=== PATIENT | male | born 1940 | race Caucasian/White ===

== ENCOUNTER 2021-08-20 13:40 | Outpatient (CLI) | payer OTHER, SELFPAY ==
--- NOTE | 2021-08-20 14:30 | MR_ITS ---
Final Report Patient: FOREST CHEEMA Facility:?[facility] Patient ID:?[id number] Site Patient ID:?[id number]. Site :?[id number] Study:?MRI Extremity Right FOOT OSTEO-08/20/2021 3:39:58 PM Ordering Physician:?Paulo Breaux Final Report: INDICATION: Nonhealing wound of the right great toe. COMPARISON: Plain film 12 August 2021 and MRI 29 July 2021. TECHNIQUE: Axial, coronal and sagittal T1 and STIR right forefoot sequences. FINDINGS: No T1 marrow signal abnormality for osteomyelitis. MR marker at the medial margin of the 1st metatarsal head. No effusion. Minor degenerative arthrosis 1st MTP joint and both sesamoids. Soft tissue edema dorsally. Mild increased STIR signal denervation changes in the muscle. There may be a shallow chronic ulcer of the medial great toe roughly at the interphalangeal joint level. Some surrounding cellulitis soft tissue edema but no fluid. No effusion of the minimally degenerated interphalangeal joint. IMPRESSION: No osteomyelitis. Minor degenerative arthrosis 1st MTP joints and sesamoids. Minor degenerative arthrosis IP joint. Nonspecific dorsal subcutaneous edema. Dictated by Taurus Osborn MD @ 08/21/2021 11:13:17 AM (Electronic Signature)
== END 2021-08-20 13:41 | disposition home or self-care (01) ==
LOC: MRI 13:41
PROVIDERS: PCP Surgery; Visit Provider Nurse Practitioner Family
DX: M86.9 Osteomyelitis, unspecified (principal); M19.071 Primary osteoarthritis, right ankle and foot
CPT/HCPCS: 73718

== ENCOUNTER 2021-08-27 13:36 | Outpatient (CLI) | payer OTHER, SELFPAY | END 2021-08-27 13:37 | disposition home or self-care (01) | LOC: WOUND 13:36 | PROVIDERS: PCP Surgery; Visit Provider Nurse Practitioner Family | DX: E11.621 Type 2 diabetes mellitus with foot ulcer (principal); E11.43 Type 2 diabetes mellitus with diabetic autonomic (poly)neuropathy; L97.513 Non-pressure chronic ulcer of other part of right foot with necrosis of muscle; Z79.84 Long term (current) use of oral hypoglycemic drugs | CPT/HCPCS: 97597 ==

== ENCOUNTER 2021-09-05 08:48 | Outpatient (CLI) | payer OTHER, MEDICARE, SELFPAY | END 2021-09-05 08:49 | disposition home or self-care (01) | PROVIDERS: PCP Surgery; Visit Provider Nurse Practitioner Family | DX: E11.621 Type 2 diabetes mellitus with foot ulcer (principal); E11.43 Type 2 diabetes mellitus with diabetic autonomic (poly)neuropathy; L97.513 Non-pressure chronic ulcer of other part of right foot with necrosis of muscle; Z79.84 Long term (current) use of oral hypoglycemic drugs | CPT/HCPCS: 11043 ==

== ENCOUNTER 2021-09-09 13:33 | Outpatient (CLI) | payer OTHER, SELFPAY | END 2021-09-09 13:34 | disposition home or self-care (01) | LOC: WOUND 13:40 | PROVIDERS: PCP Surgery; Visit Provider Nurse Practitioner Family | DX: E11.621 Type 2 diabetes mellitus with foot ulcer (principal); E11.43 Type 2 diabetes mellitus with diabetic autonomic (poly)neuropathy; L97.513 Non-pressure chronic ulcer of other part of right foot with necrosis of muscle | CPT/HCPCS: 11043 ==

== ENCOUNTER 2021-09-16 08:20 | Outpatient (CLI) | payer OTHER, SELFPAY | END 2021-09-16 08:21 | disposition home or self-care (01) | LOC: WOUND 08:21 | PROVIDERS: PCP Surgery; Visit Provider Nurse Practitioner Family | DX: E11.621 Type 2 diabetes mellitus with foot ulcer (principal); E11.43 Type 2 diabetes mellitus with diabetic autonomic (poly)neuropathy; L97.513 Non-pressure chronic ulcer of other part of right foot with necrosis of muscle; Z79.84 Long term (current) use of oral hypoglycemic drugs | CPT/HCPCS: 11042 ==

== ENCOUNTER 2021-09-23 08:22 | Outpatient (CLI) | payer OTHER, MEDICARE, SELFPAY | END 2021-09-23 08:23 | disposition home or self-care (01) | LOC: WOUND 08:22 | PROVIDERS: PCP Surgery; Visit Provider Nurse Practitioner Family | DX: E11.621 Type 2 diabetes mellitus with foot ulcer (principal); E11.43 Type 2 diabetes mellitus with diabetic autonomic (poly)neuropathy; L97.513 Non-pressure chronic ulcer of other part of right foot with necrosis of muscle; Z79.84 Long term (current) use of oral hypoglycemic drugs | CPT/HCPCS: 11042 ==

== ENCOUNTER 2021-09-30 09:17 | Outpatient (CLI) | payer OTHER, MEDICARE, SELFPAY | END 2021-09-30 09:18 | disposition home or self-care (01) | PROVIDERS: PCP Surgery; Visit Provider Nurse Practitioner Family | DX: E11.621 Type 2 diabetes mellitus with foot ulcer (principal); E11.43 Type 2 diabetes mellitus with diabetic autonomic (poly)neuropathy; L97.513 Non-pressure chronic ulcer of other part of right foot with necrosis of muscle; Z79.84 Long term (current) use of oral hypoglycemic drugs | CPT/HCPCS: 11043 ==

== ENCOUNTER 2021-10-07 12:47 | Outpatient (CLI) | payer OTHER, MEDICARE, SELFPAY | END 2021-10-07 12:48 | disposition home or self-care (01) | LOC: WOUND 12:47 | PROVIDERS: PCP Surgery; Visit Provider Nurse Practitioner Family | DX: E11.621 Type 2 diabetes mellitus with foot ulcer (principal); E11.43 Type 2 diabetes mellitus with diabetic autonomic (poly)neuropathy; L97.513 Non-pressure chronic ulcer of other part of right foot with necrosis of muscle; Z79.84 Long term (current) use of oral hypoglycemic drugs | CPT/HCPCS: 11042 ==

== ENCOUNTER 2021-10-14 09:15 | Outpatient (CLI) | payer OTHER, MEDICARE, SELFPAY | END 2021-10-14 09:16 | disposition home or self-care (01) | LOC: WOUND 09:15 | PROVIDERS: PCP Surgery; Visit Provider Nurse Practitioner Family | DX: E11.621 Type 2 diabetes mellitus with foot ulcer (principal); E11.43 Type 2 diabetes mellitus with diabetic autonomic (poly)neuropathy; L97.516 Non-pressure chronic ulcer of other part of right foot with bone involvement without evidence of necrosis; Z79.84 Long term (current) use of oral hypoglycemic drugs | CPT/HCPCS: 11043; 96372; J0696 ==

== ENCOUNTER 2021-10-14 10:03 | Outpatient (CLI) | payer OTHER, SELFPAY ==
--- NOTE | 2021-10-14 10:45 | CRLHL7_ITS ---
For Patients: As a result of the Cures Act, medical imaging exams and procedure reports are released immediately into your electronic medical record. You may view this report before your referring provider. If you have questions, please contact your health care provider. Indication: Infection probes to bone Technique: Three views right great toe Comparison: MRI 08/20/2021 Findings: There is now destructive change to the medial aspect of the great toe distal phalanx adjacent to the skin ulcer. Multiple areas of density are located within the medial soft tissues related to the cortical breakdown. Mild degenerative changes noted. Impression: Interval development of osteomyelitis involving the medial aspect of the great toe distal phalanx. Dictated by Simon Contreras MD @ 10/14/2021 11:07:01 AM (Electronically Signed)
== END 2021-10-14 10:04 | disposition home or self-care (01) ==
PROVIDERS: PCP Surgery; Visit Provider Nurse Practitioner Family
DX: L97.516 Non-pressure chronic ulcer of other part of right foot with bone involvement without evidence of necrosis (principal); M86.8X7 Other osteomyelitis, ankle and foot
CPT/HCPCS: 73660

== ENCOUNTER 2021-10-14 10:03 | Outpatient (CLI) | payer OTHER, MEDICARE, SELFPAY ==
[2021-10-14 11:08] LABS: Basophils Absolute Auto 0.03 K/uL (0.00-0.30); Basophils Percent Auto 0.3 % (0.0-3.0); Eosinophils Absolute Auto 0.12 K/uL (0.00-0.50); Eosinophils Percent Auto 1.3 % (0.0-7.0); Hematocrit 35.9 % (37.0-53.0); Hemoglobin* 12.6 gm/dL (13.5-17.5); Immature Granulocytes Abs Auto 0.01 K/uL (0.00-0.30); Lymphocytes Percent Auto 18.4 % (20-44); Mean Corpuscular HGB Conc 35 gm/dL (32-36); Mean Corpuscular Hemoglobin 32 pg (26-34); Mean Corpuscular Volume 90 fL (80-100); Monocytes Percent Auto 11.4 % (0.0-11.0); Neutrophils Absolute Auto 6.52 K/uL (1.7-7.0); Neutrophils Percent Auto 68.5 % (42.0-72.0); Platelet Count* 166 K/uL (140-440); RDW Coefficient of Variation % 12.6 % (11.5-15.5); Red Blood Count 3.98 m/uL (4.30-5.90); White Blood Count* 9.52 K/uL (4.50-11.00)
[2021-10-14 11:17] LABS: Slide Review Reflex No
[2021-10-14 11:33] LABS: Chloride* 99 mmol/L (96-114); Potassium* 4.2 mmol/L (3.6-5.1); Sodium* 137 mmol/L (135-149)
[2021-10-14 11:36] LABS: Blood Urea Nitrogen* 14 mg/dL (7-30); Carbon Dioxide* 26 mmol/L (20-32); Estimated Glomerular Filt Rate 75 ml/min
[2021-10-14 11:37] LABS: Calcium* 8.9 mg/dL (8.4-10.6); Glucose* 184 mg/dL (60-115)
[2021-10-14 11:39] LABS: C Reactive Protein* 2.9 mg/dL (0.5-1.0)
== END 2021-10-14 10:04 | disposition home or self-care (01) ==
PROVIDERS: PCP Surgery; Visit Provider Nurse Practitioner Family
DX: L97.516 Non-pressure chronic ulcer of other part of right foot with bone involvement without evidence of necrosis (principal)
CPT/HCPCS: 36415; 80048; 85025; 86140; 87070; 87186

== ENCOUNTER 2021-10-21 09:14 | Outpatient (CLI) | payer OTHER, MEDICARE, SELFPAY ==
--- NOTE | 2021-10-21 13:45 | CRLHL7_ITS ---
For Patients: As a result of the Century Cures Act, medical imaging exams and procedure reports are released immediately into your electronic medical record. You may view this report before your referring provider. If you have questions, please contact your health care provider. INDICATION: HBO workup read TECHNIQUE: Chest 2 views. COMPARISON: 11/11/2020. FINDINGS: Cardiovascular and mediastinum: Heart size and vasculature are normal in caliber and appearance. Calcification in the aortic arch. Lungs and pleural spaces: Lungs are clear. No sign of infiltrate or mass. No sign of pleural effusion. No pneumothorax. Bones and soft tissues: Multilevel degenerative disc disease. IMPRESSION: No acute or significant findings. Dictated by Krishan Tidwell MD @ 10/21/2021 12:54:07 PM (Electronically Signed)
== END 2021-10-21 09:15 | disposition home or self-care (01) ==
LOC: WOUND 09:14
PROVIDERS: PCP Surgery; Visit Provider Nurse Practitioner Family
DX: E11.621 Type 2 diabetes mellitus with foot ulcer (principal); L97.516 Non-pressure chronic ulcer of other part of right foot with bone involvement without evidence of necrosis; Z79.84 Long term (current) use of oral hypoglycemic drugs; Z01.810 Encounter for preprocedural cardiovascular examination
CPT/HCPCS: 11042; 71046

== ENCOUNTER 2021-10-23 08:00 | Outpatient (RCR) | payer OTHER, MEDICARE, SELFPAY | END 2021-10-23 23:59 | disposition home or self-care (01) | LOC: WOUND 08:00 | PROVIDERS: PCP Surgery; Visit Provider Nurse Practitioner Family | DX: E11.621 Type 2 diabetes mellitus with foot ulcer (principal); E11.43 Type 2 diabetes mellitus with diabetic autonomic (poly)neuropathy; L97.516 Non-pressure chronic ulcer of other part of right foot with bone involvement without evidence of necrosis; Z79.84 Long term (current) use of oral hypoglycemic drugs | CPT/HCPCS: 82962; G0277 ==

== ENCOUNTER 2021-10-24 12:32 | Outpatient (CLI) | payer OTHER, SELFPAY | END 2021-10-24 12:33 | disposition home or self-care (01) | LOC: WOUND 12:33 | PROVIDERS: PCP Surgery; Visit Provider Nurse Practitioner Family | DX: E11.621 Type 2 diabetes mellitus with foot ulcer (principal); E11.43 Type 2 diabetes mellitus with diabetic autonomic (poly)neuropathy; L97.516 Non-pressure chronic ulcer of other part of right foot with bone involvement without evidence of necrosis; Z79.84 Long term (current) use of oral hypoglycemic drugs | CPT/HCPCS: 11043; 82962; G0277 ==

== ENCOUNTER 2021-10-25 13:28 | Emergency (ER) | payer OTHER, SELFPAY ==
[2021-10-25 13:40] VITALS: BP 131/71; PULSE 80; RESP 20; TEMP 36.6; O2SAT 97; BMI 28.5
--- NOTE | 2021-10-25 13:50 | ED.GENADULT ---
HPI - General Adult General Time Seen by Provider: 13:50 Date Seen: 10/25/21 Chief complaint: Shortness of Breath/Dyspnea Stated complaint: Shortness of Breath Lightheaded Time Seen by Provider: 10/25/21 13:33 Source: patient and RN notes reviewed Mode of arrival: ambulatory Limitations: no limitations History of Present Illness HPI narrative: Pratik an 81-year-old male ambulatory in the ED of his own accord accompanied by his with shortness of breath. He was working outside working on fixing parts to a pool heater for hours outside. He started feeling short of breath, headache, nausea, just not feeling well. He is feeling better now that he is inside. He has had a history of a heat stroke while golfing, states he completely passed out. He denies any pain anywhere. He has had no underlying fevers or chills. He is being treated with hyperbaric therapy for a wound of his right lower extremity. It sounds is if there might be underlying osteo myelitis or recent history of this. Again, he is not had any concerns with worsening status of his wound, no fevers chills. He was not feeling poorly until after he was outside for some time. There has been no chest pain, no palpitations, no abdominal pain. Related Data Home Medications Medication Instructions Recorded Confirmed amlodipine 2.5 mg tablet 2.5 mg PO DAILY 10/25/21 10/25/21 clopidogrel 75 mg tablet 75 mg PO DAILY 10/25/21 10/25/21 ferrous sulfate 325 mg (65 mg 325 mg PO DAILY 10/25/21 10/25/21 iron) tablet (FeroSul) gabapentin 100 mg capsule 100 mg PO Q12H 10/25/21 10/25/21 glipizide 5 mg tablet 5 mg PO DAILY 10/25/21 10/25/21 indomethacin 25 mg capsule 25 mg PO DAILY PRN 10/25/21 10/25/21 ipratropium 20 mcg-albuterol 100 1 puff inhalation Q6H 10/25/21 10/25/21 mcg/actuation mist for inhalation (Combivent Respimat) isosorbide mononitrate 30 mg 30 mg PO DAILY 10/25/21 10/25/21 tablet,extended release 24 hr levofloxacin 750 mg tablet 750 mg PO DAILY 10/25/21 10/25/21 losartan 50 mg tablet 50 mg PO DAILY 10/25/21 10/25/21 metformin 850 mg tablet 850 mg PO BID 10/25/21 10/25/21 nitroglycerin 0.4 mg sublingual 0.4 mg sublingual Q5M PRN 10/25/21 10/25/21 tablet oxycodone 5 mg tablet 5 mg PO HS PRN 10/25/21 10/25/21 rosuvastatin 20 mg tablet 10 mg PO HS 10/25/21 10/25/21 Allergies Allergy/AdvReac Type Severity Reaction Status Date / Time atenolol Allergy Unknown Verified 10/25/21 14:21 atorvastatin Allergy Unknown Myalgia Verified 10/25/21 14:21 lisinopril AdvReac Unknown Cough Verified 10/25/21 14:21 metoprolol AdvReac Unknown Headache Verified 10/25/21 14:21 Review of Systems Status of ROS: Reports: 10 or more systems reviewed and unremarkable except as noted in History and below PFSH PFS Social History Smoking Status: Never smoker How often do you have a drink containing alcohol: never AUDIT-C Alcohol total score: 0 Non-prescribed substance use: denies use service: No Exam Const: Vital Signs, click to edit/add: Vital Signs - 24 hr 10/25/21 13:40 10/25/21 14:40 Temperature 97.9 F Pulse Rate [Right Pulse Oximeter] 80 81 Respiratory Rate 20 22 Blood Pressure [Le ft Upper Arm] 131/71 124/61 Pulse Oximetry 97 99 Oxygen Delivery Me thod Room Air Room Air Documenting provider has reviewed patient's vital signs: yes Common normals: no apparent distress, average body habitus, oriented x3, no limitations, healthy appearing, alert and well nourished General appearance: cooperative, comfortable and well kempt HENMT: Common normals: normocephalic, head/scalp atraumatic, hearing grossly normal bilaterally and external ears normal Head and scalp: normocephalic and atraumatic External ear: external ears normal Eye: Common normals: PERRL, EOMs intact bilaterally, conjunctivae normal and no scleral icterus Conjunctiva: conjunctiva(e) normal Pupil: PERRL Neck & C-Spine: Common normals: full ROM, no lymphadenopathy, supple, no meningeal signs, no JVD and thyroid normal Thyroid: thyroid normal Resp: Common normals: normal respiratory effort, no retractions, no use of accessory muscles and clear to auscultation bilaterally Auscultation: clear to auscultation bilaterally Cardio: Common normals: no JVD, regular rate, regular rhythm, S1 normal heart sound, S2 normal heart sound, no gallops, no clicks and no murmurs Rate: regular rate Rhythm: regular rhythm Heart sounds: S1 normal and S2 normal GI: Common normals: Normal to inspection, nondistended, normoactive bowel sounds present, soft to palpation, non-tender, no hepatosplenomegaly, no masses and no bruits Palpation: soft and no hepatosplenomegaly Extremity: Other: Has some notable venous stasis changes left lower extremity, has Tubigrip tape netting on the right lower extremity. No clinically palpable tenderness in the calf areas. No significant lower extremity edema noted. Neuro: Common normals: oriented x3 Sensorium/orientation: alert Meningeal signs: no meningeal signs Speech: speech normal Psych: Appearance: well kempt Course Course Hospital Course: Will place an IV, give him 500 mL normal saline, obtained appropriate lab values, obtain an EKG. We will do portable chest x-ray. I am going to dry D-dimer as well. He is not hypoxic, has no pain. My working hypothesis is that this might be a mild heat related illness but will rule out underlying cardiopulmonary pathology. Reevaluation(s) Reevaluation #1: Have reviewed with patient that his labs and portable chest x-ray are looking reassuring. He is feeling better with the fluids. We will obtain a a followup lactate and 2nd point of care troponin. If these are normal he will be discharged to home. Time: 16:23 Vital Signs Vital signs: Initial Vital Signs Temperature 97.9 F 10/25/21 13:40 Temperature Source Temporal Artery Scan 10/25/21 13:40 Pulse Rate 80 10/25/21 13:40 Respiratory Rate 20 10/25/21 13:40 Blood Pressure 131/71 10/25/21 13:40 Blood Pressure Mean 91 10/25/21 13:40 Blood Pressure Position Supine 10/25/21 13:40 Pulse Oximetry 97 10/25/21 13:40 Oxygen Delivery Method 10/25/21 13:40 Vital Signs Temperature 97.9 F 10/25/21 13:40 Pulse Rate 80 10/25/21 13:40 Respiratory Rate 20 10/25/21 13:40 Blood Pressure 131/71 10/25/21 13:40 Pulse Oximetry 97 10/25/21 13:40 Oxygen Delivery Method 10/25/21 13:40 Temperature 97.9 F 10/25/21 13:40 Pulse Rate 81 10/25/21 14:40 Respiratory Rate 22 10/25/21 14:40 Blood Pressure 124/61 10/25/21 14:40 Pulse Oximetry 99 10/25/21 14:40 Oxygen Delivery Method 10/25/21 14:40 Medical Decision Making Lab Data Lab results reviewed: Yes I reviewed the patient's lab results Lab results narrative: Lactate has improved, point of care troponin remains normal. Labs: Lab Results 10/25/21 10/25/21 10/25/21 Range/Units 14:28 14:28 14:34 WBC 9.27 (4.50-11.00) K/uL RBC 3.84 L (4.30-5.90) m/uL Hgb 11.9 L (13.5-17.5) gm/dL Hct 34.7 L (37.0-53.0) % MCV 90 (80-100) fL MCH 31 (26-34) pg MCHC 34 (32-36) gm/dL RDW Coeff of Elan 12.2 (11.5-15.5) % Plt Count 199 (140-440) K/uL Neut % (Auto) 74.4 H (42.0-72.0) % Lymph % (Auto) 17.0 L (20-44) % [place] % (Auto) 6.6 (0.0-11.0) % Eos % (Auto) 1.5 (0.0-7.0) % Baso % (Auto) 0.2 (0.0-3.0) % Neut # (Auto) 6.90 (1.7-7.0) K/uL Lymph # (Auto) 1.60 (0.90-2.90) K/uL [place] # (Auto) 0.60 (0.00-0.90) K/UL Eos # (Auto) 0.14 (0.00-0.50) K/uL Baso # (Auto) 0.02 (0.00-0.30) K/uL Abs Immat Gran (auto) 0.03 (0.00-0.30) K/uL D-Dimer Quant (PE/DVT) 0.50 (0.00-0.50) ug/ml Sodium (135-149) mmol/L Potassium (3.6-5.1) mmol/L Chloride (96-114) mmol/L Carbon Dioxide (20-32) mmol/L BUN (7-30) mg/dL Creatinine (0.5-1.5) mg/dL Estimated Creat Clear Estimated GFR ml/min Glucose (60-115) mg/dL Lactate (0.5-1.9) mmol/L Calcium (8.4-10.6) mg/dL Total Bilirubin (0.1-1.5) mg/dL AST (12-35) U/L ALT (4-50) U/L Alkaline Phosphatase (40-150) U/L NT-Pro-B Natriuret Pep (0-450) PG/mL Total Protein (6.0-8.3) g/dL Albumin (3.3-5.0) g/dL POC Troponin I 0.00 L (0.01-0.04) ng/ml 10/25/21 10/25/21 10/25/21 Range/Units 14:34 14:34 16:44 WBC (4.50-11.00) K/uL RBC (4.30-5.90) m/uL Hgb (13.5-17.5) gm/dL Hct (37.0-53.0) % MCV (80-100) fL MCH (26-34) pg MCHC (32-36) gm/dL RDW Coeff of Elan (11.5-15.5) % Plt Count (140-440) K/uL Neut % (Auto) (42.0-72.0) % Lymph % (Auto) (20-44) % [place] % (Auto) (0.0-11.0) % Eos % (Auto) (0.0-7.0) % Baso % (Auto) (0.0-3.0) % Neut # (Auto) (1.7-7.0) K/uL Lymph # (Auto) (0.90-2.90) K/uL [place] # (Auto) (0.00-0.90) K/UL Eos # (Auto) (0.00-0.50) K/uL Baso # (Auto) (0.00-0.30) K/uL Abs Immat Gran (auto) (0.00-0.30) K/uL D-Dimer Quant (PE/DVT) (0.00-0.50) ug/ml Sodium 136 (135-149) mmol/L Potassium 4.1 (3.6-5.1) mmol/L Chloride 101 (96-114) mmol/L Carbon Dioxide 24 (20-32) mmol/L BUN 26 (7-30) mg/dL Creatinine 1.4 (0.5-1.5) mg/dL Estimated Creat Clear 42.58 Estimated GFR 50 ml/min Glucose 221 H (60-115) mg/dL Lactate 2.0 H 1.4 (0.5-1.9) mmol/L Calcium 9.1 (8.4-10.6) mg/dL Total Bilirubin 0.4 (0.1-1.5) mg/dL AST 23 (12-35) U/L ALT 18 (4-50) U/L Alkaline Phosphatase 76 (40-150) U/L NT-Pro-B Natriuret Pep 81 (0-450) PG/mL Total Protein 6.5 (6.0-8.3) g/dL Albumin 3.8 (3.3-5.0) g/dL POC Troponin I (0.01-0.04) ng/ml 10/25/21 Range/Units 16:44 WBC (4.50-11.00) K/uL RBC (4.30-5.90) m/uL Hgb (13.5-17.5) gm/dL Hct (37.0-53.0) % MCV (80-100) fL MCH (26-34) pg MCHC (32-36) gm/dL RDW Coeff of Elan (11.5-15.5) % Plt Count (140-440) K/uL Neut % (Auto) (42.0-72.0) % Lymph % (Auto) (20-44) % [place] % (Auto) (0.0-11.0) % Eos % (Auto) (0.0-7.0) % Baso % (Auto) (0.0-3.0) % Neut # (Auto) (1.7-7.0) K/uL Lymph # (Auto) (0.90-2.90) K/uL [place] # (Auto) (0.00-0.90) K/UL Eos # (Auto) (0.00-0.50) K/uL Baso # (Auto) (0.00-0.30) K/uL Abs Immat Gran (auto) (0.00-0.30) K/uL D-Dimer Quant (PE/DVT) (0.00-0.50) ug/ml Sodium (135-149) mmol/L Potassium (3.6-5.1) mmol/L Chloride (96-114) mmol/L Carbon Dioxide (20-32) mmol/L BUN (7-30) mg/dL Creatinine (0.5-1.5) mg/dL Estimated Creat Clear Estimated GFR ml/min Glucose (60-115) mg/dL Lactate (0.5-1.9) mmol/L Calcium (8.4-10.6) mg/dL Total Bilirubin (0.1-1.5) mg/dL AST (12-35) U/L ALT (4-50) U/L Alkaline Phosphatase (40-150) U/L NT-Pro-B Natriuret Pep (0-450) PG/mL Total Protein (6.0-8.3) g/dL Albumin (3.3-5.0) g/dL POC Troponin I 0.00 L (0.01-0.04) ng/ml Imaging Data Chest x-ray: Attestation: I have reviewed the pertinent imaging results. My impression: Chest x-ray my preliminary review without any acute cardio pulmonary pathology, await Radiology over-read. Radiologist's impression: Patient: PRATIK CHEEMA Facility:?[facility] Patient ID:?[id number] Site Patient ID:?[id number]. Site :?[id number] Study:?XRay Chest -10/25/2021 2:22:41 PM Ordering Physician:Radha Sarkar Final Report: Indication: Shortness of breath. Technique: Portable single view AP chest x-ray. Comparison: 10/21/2021. Findings: Lungs remain clear. Heart and pulmonary vascularity within normal limits. No pleural fluid or pneumothorax is identified. Some degenerative changes in the spine. Impression: No acute findings identified. No change from 10/21/2021. Dictated by Willis East MD @ 10/25/2021 2:55:55 PM (Electronic Signature) ECG Data Attestation: I personally reviewed and interpreted this ECG as follows: (Sinus rhythm with first-degree AV block, 85 beats per minute.) Prior ECG tracings: not available for review Critical Care Time Critical Care Time Critical Care Time: No Discharge Plan Discharge Clinical Impression: Shortness of breath, Heat effect Patient Disposition: Home, Self-Care Condition: Improved Instructions: Heat Exhaustion (ED), Shortness of Breath (ED) Additional Instructions: Need to be careful in the heat, stay hydrated/drink plenty of fluids if in heat exposure, try to minimize length of time and high heat. If you notice further issues with shortness of breath, do recommend that you have further evaluation with her primary care provider. Certainly if you are having acute shortness of breath or difficulty breathing, always recommend re-evaluation and in the ER if needed. Activity Level: Activity as Tolerated Prescriptions: No Action amlodipine 2.5 mg tablet 2.5 mg PO DAILY clopidogrel 75 mg tablet 75 mg PO DAILY Label Comments: TAKE ONE TABLET DAILY ferrous sulfate [FeroSul] 325 mg (65 mg iron) tablet 325 mg PO DAILY Label Comments: TAKE 1 TABLET BY MOUTH DAILY WITH A MEAL gabapentin 100 mg capsule 100 mg PO Q12H Label Comments: TAKE 1 CAPSULE BY MOUTH TWICE DAILY glipizide 5 mg tablet 5 mg PO DAILY indomethacin 25 mg capsule 25 mg PO DAILY PRN Label Comments: TAKE 1 CAPSULE BY MOUTH DAILY NEEDED FOR FOOT PAIN. DO NOT TAKE ON AN ON AN EMPTY STOMACH Combivent Respimat 20-100 mcg/actuation mist 1 puff INHALATION Q6H Label Comments: INHALE 1 PUFF BY MOUTH EVERY 6 HOURS isosorbide mononitrate 30 mg tablet extended release 24 hr 30 mg PO DAILY levofloxacin 750 mg tablet 750 mg PO DAILY Label Comments: TAKE 1 TABLET DAILY FOR 4 WEEKS losartan 50 mg tablet 50 mg PO DAILY metformin 850 mg tablet 850 mg PO BID nitroglycerin 0.4 mg tablet, sublingual 0.4 mg sublingual Q5M PRN oxycodone 5 mg tablet 5 mg PO HS PRN Label Comments: 5 MG PO HS PRN Take as needed for foot pain. rosuvastatin 20 mg tablet 10 mg PO HS Label Comments: TAKE 1/2 TABLET BY MOUTH EVERY EVENING Follow Up/Referrals: Kevin Nelson MD [Primary Care Provider] - Stand Alone Forms: [employer] Info Instructions
--- NOTE | 2021-10-25 14:11 | CRLHL7_ITS ---
For Patients: As a result of the Century Cures Act, medical imaging exams and procedure reports are released immediately into your electronic medical record. You may view this report before your referring provider. If you have questions, please contact your health care provider. Indication: Shortness of breath. Technique: Portable single view AP chest x-ray. Comparison: 10/21/2021. Findings: Lungs remain clear. Heart and pulmonary vascularity within normal limits. No pleural fluid or pneumothorax is identified. Some degenerative changes in the spine. Impression: No acute findings identified. No change from 10/21/2021. Dictated by Willis East MD @ 10/25/2021 2:55:55 PM (Electronically Signed)
[2021-10-25] MEDS: 0.9 % SODIUM CHLORIDE 500 ML 500 ML IV (14:38)
[2021-10-25 14:40] VITALS: BP 124/61; PULSE 81; RESP 22; O2SAT 99
[2021-10-25 14:56] LABS: Albumin* 3.8 g/dL (3.3-5.0); Chloride* 101 mmol/L (96-114)
[2021-10-25 14:57] LABS: Potassium* 4.1 mmol/L (3.6-5.1); Sodium* 136 mmol/L (135-149)
[2021-10-25 14:59] LABS: Bilirubin Total* 0.4 mg/dL (0.1-1.5); Carbon Dioxide* 24 mmol/L (20-32); Creatinine* 1.4 mg/dL (0.5-1.5); Est. Creatinine Clearance* 42.58; Estimated Glomerular Filt Rate 50 ml/min
[2021-10-25 15:00] LABS: Alanine Aminotransferase* 18 U/L (4-50); Alkaline Phosphatase* 76 U/L (40-150); Aspartate Amino Transferase* 23 U/L (12-35); Blood Urea Nitrogen* 26 mg/dL (7-30); Calcium* 9.1 mg/dL (8.4-10.6); Glucose* 221 mg/dL (60-115); Total Protein* 6.5 g/dL (6.0-8.3)
[2021-10-25 15:09] LABS: NT Pro B Type NatriureticPept* 81 PG/mL (0-450)
[2021-10-25 15:14] LABS: Basophils Absolute Auto 0.02 K/uL (0.00-0.30); Basophils Percent Auto 0.2 % (0.0-3.0); Eosinophils Absolute Auto 0.14 K/uL (0.00-0.50); Eosinophils Percent Auto 1.5 % (0.0-7.0); Hematocrit 34.7 % (37.0-53.0); Hemoglobin* 11.9 gm/dL (13.5-17.5); Immature Granulocytes Abs Auto 0.03 K/uL (0.00-0.30); Mean Corpuscular HGB Conc 34 gm/dL (32-36); Mean Corpuscular Hemoglobin 31 pg (26-34); Mean Corpuscular Volume 90 fL (80-100); Monocytes Percent Auto 6.6 % (0.0-11.0); Neutrophils Percent Auto 74.4 % (42.0-72.0); Platelet Count* 199 K/uL (140-440); RDW Coefficient of Variation % 12.2 % (11.5-15.5); Red Blood Count 3.84 m/uL (4.30-5.90); White Blood Count* 9.27 K/uL (4.50-11.00)
[2021-10-25 15:17] LABS: Slide Review Reflex No
[2021-10-25 16:49] LABS: Lactate* 1.4 mmol/L (0.5-1.9)
== END 2021-10-25 17:51 | disposition home or self-care (01) ==
PROVIDERS: Emergency Provider Family Medicine; PCP Surgery
DX: R06.02 Shortness of breath (principal); T67.5XXA Heat exhaustion, unspecified, initial encounter
CPT/HCPCS: 36415; 71045; 80053; 83605; 83880; 84484; 85025; 85379; 93005; 96360; 99284; 99285; J7120

== ENCOUNTER 2021-10-29 08:26 | Outpatient (CLI) | payer OTHER, SELFPAY | END 2021-10-29 08:27 | disposition home or self-care (01) | LOC: WOUND 08:27 | PROVIDERS: PCP Surgery; Visit Provider Nurse Practitioner Family | DX: E11.621 Type 2 diabetes mellitus with foot ulcer (principal); E11.43 Type 2 diabetes mellitus with diabetic autonomic (poly)neuropathy; L97.516 Non-pressure chronic ulcer of other part of right foot with bone involvement without evidence of necrosis; Z79.84 Long term (current) use of oral hypoglycemic drugs | CPT/HCPCS: 11042; 82962; G0277 ==

== ENCOUNTER 2021-11-04 10:41 | Outpatient (CLI) | payer OTHER, SELFPAY | END 2021-11-04 10:42 | disposition home or self-care (01) | LOC: WOUND 10:41 | PROVIDERS: PCP Surgery; Visit Provider Nurse Practitioner Family | DX: E11.621 Type 2 diabetes mellitus with foot ulcer (principal); E11.43 Type 2 diabetes mellitus with diabetic autonomic (poly)neuropathy; L97.516 Non-pressure chronic ulcer of other part of right foot with bone involvement without evidence of necrosis; Z79.84 Long term (current) use of oral hypoglycemic drugs | CPT/HCPCS: 11042; 82962; G0277 ==

== ENCOUNTER 2021-11-11 08:50 | Outpatient (CLI) | payer OTHER, SELFPAY | END 2021-11-11 08:51 | disposition home or self-care (01) | LOC: WOUND 08:50 | PROVIDERS: PCP Surgery; Visit Provider Nurse Practitioner Family | DX: E11.621 Type 2 diabetes mellitus with foot ulcer (principal); E11.43 Type 2 diabetes mellitus with diabetic autonomic (poly)neuropathy; L97.516 Non-pressure chronic ulcer of other part of right foot with bone involvement without evidence of necrosis; Z79.84 Long term (current) use of oral hypoglycemic drugs | CPT/HCPCS: 11042; 82962; G0277 ==

== ENCOUNTER 2021-11-18 10:56 | Outpatient (CLI) | payer OTHER, MEDICARE, SELFPAY | END 2021-11-18 10:57 | disposition home or self-care (01) | LOC: WOUND 10:56 | PROVIDERS: PCP Surgery; Visit Provider Nurse Practitioner Family | DX: E11.621 Type 2 diabetes mellitus with foot ulcer (principal); E11.43 Type 2 diabetes mellitus with diabetic autonomic (poly)neuropathy; L97.516 Non-pressure chronic ulcer of other part of right foot with bone involvement without evidence of necrosis; Z79.84 Long term (current) use of oral hypoglycemic drugs | CPT/HCPCS: 11042; 82962; G0277 ==

== ENCOUNTER 2021-11-22 08:00 | Outpatient (RCR) | payer OTHER, SELFPAY | END 2021-11-22 23:59 | disposition home or self-care (01) | LOC: WOUND 08:00 | PROVIDERS: PCP Surgery; Visit Provider Nurse Practitioner Family | DX: E11.621 Type 2 diabetes mellitus with foot ulcer (principal); E11.43 Type 2 diabetes mellitus with diabetic autonomic (poly)neuropathy; I70.235 Atherosclerosis of native arteries of right leg with ulceration of other part of foot; L97.516 Non-pressure chronic ulcer of other part of right foot with bone involvement without evidence of necrosis; Z79.84 Long term (current) use of oral hypoglycemic drugs | CPT/HCPCS: 82962; G0277 ==

== ENCOUNTER 2021-11-26 07:48 | Outpatient (CLI) | payer OTHER, MEDICARE, SELFPAY | END 2021-11-26 07:49 | disposition home or self-care (01) | LOC: WOUND 07:49 | PROVIDERS: PCP Surgery; Visit Provider Nurse Practitioner Family | DX: E11.621 Type 2 diabetes mellitus with foot ulcer (principal); L97.516 Non-pressure chronic ulcer of other part of right foot with bone involvement without evidence of necrosis; L60.3 Nail dystrophy; B35.1 Tinea unguium; Z79.84 Long term (current) use of oral hypoglycemic drugs | CPT/HCPCS: 11042; 11721; 82962; G0277 ==

== ENCOUNTER 2021-12-02 10:19 | Outpatient (CLI) | payer OTHER, MEDICARE, SELFPAY | END 2021-12-02 10:20 | disposition home or self-care (01) | LOC: WOUND 10:19 | PROVIDERS: PCP Surgery; Visit Provider Nurse Practitioner Family | DX: E11.621 Type 2 diabetes mellitus with foot ulcer (principal); E11.43 Type 2 diabetes mellitus with diabetic autonomic (poly)neuropathy; L97.516 Non-pressure chronic ulcer of other part of right foot with bone involvement without evidence of necrosis; Z79.84 Long term (current) use of oral hypoglycemic drugs | CPT/HCPCS: 11043; 82962; G0277 ==

== ENCOUNTER 2021-12-05 08:00 | Outpatient (RCR) | payer OTHER, SELFPAY | END 2021-12-23 23:59 | disposition home or self-care (01) | LOC: WOUND 08:00 | PROVIDERS: PCP Surgery; Visit Provider Nurse Practitioner Family | DX: E11.621 Type 2 diabetes mellitus with foot ulcer (principal); E11.43 Type 2 diabetes mellitus with diabetic autonomic (poly)neuropathy; L97.516 Non-pressure chronic ulcer of other part of right foot with bone involvement without evidence of necrosis; Z79.84 Long term (current) use of oral hypoglycemic drugs | CPT/HCPCS: 82962; G0277 ==

== ENCOUNTER 2021-12-09 09:23 | Outpatient (CLI) | payer OTHER, SELFPAY | END 2021-12-09 09:24 | disposition home or self-care (01) | LOC: WOUND 09:23 | PROVIDERS: PCP Surgery; Visit Provider Nurse Practitioner Family | DX: E11.621 Type 2 diabetes mellitus with foot ulcer (principal); E11.43 Type 2 diabetes mellitus with diabetic autonomic (poly)neuropathy; L97.516 Non-pressure chronic ulcer of other part of right foot with bone involvement without evidence of necrosis; Z79.84 Long term (current) use of oral hypoglycemic drugs | CPT/HCPCS: 11042 ==

== ENCOUNTER 2021-12-16 10:55 | Outpatient (CLI) | payer OTHER, SELFPAY | END 2021-12-16 10:56 | disposition home or self-care (01) | LOC: WOUND 10:55 | PROVIDERS: PCP Surgery; Visit Provider Nurse Practitioner Family | DX: E11.621 Type 2 diabetes mellitus with foot ulcer (principal); E11.43 Type 2 diabetes mellitus with diabetic autonomic (poly)neuropathy; L97.516 Non-pressure chronic ulcer of other part of right foot with bone involvement without evidence of necrosis; Z79.84 Long term (current) use of oral hypoglycemic drugs | CPT/HCPCS: 11042 ==

== ENCOUNTER 2021-12-23 10:49 | Outpatient (CLI) | payer OTHER, SELFPAY | END 2021-12-23 10:50 | disposition home or self-care (01) | LOC: WOUND 10:50 | PROVIDERS: PCP Surgery; Visit Provider Nurse Practitioner Family | DX: E11.621 Type 2 diabetes mellitus with foot ulcer (principal); E11.43 Type 2 diabetes mellitus with diabetic autonomic (poly)neuropathy; L97.516 Non-pressure chronic ulcer of other part of right foot with bone involvement without evidence of necrosis; Z79.84 Long term (current) use of oral hypoglycemic drugs | CPT/HCPCS: 97597 ==

== ENCOUNTER 2021-12-30 10:49 | Outpatient (CLI) | payer OTHER, SELFPAY | END 2021-12-30 10:50 | disposition home or self-care (01) | PROVIDERS: PCP Surgery; Visit Provider Nurse Practitioner Family | DX: E11.621 Type 2 diabetes mellitus with foot ulcer (principal); E11.43 Type 2 diabetes mellitus with diabetic autonomic (poly)neuropathy; L97.516 Non-pressure chronic ulcer of other part of right foot with bone involvement without evidence of necrosis; Z79.84 Long term (current) use of oral hypoglycemic drugs | CPT/HCPCS: 15275; Q4151 ==

== ENCOUNTER 2022-01-06 08:40 | Outpatient (CLI) | payer OTHER, SELFPAY | END 2022-01-06 08:41 | disposition home or self-care (01) | LOC: WOUND 08:40 | PROVIDERS: PCP Surgery; Visit Provider Nurse Practitioner Family | DX: E11.621 Type 2 diabetes mellitus with foot ulcer (principal); E11.43 Type 2 diabetes mellitus with diabetic autonomic (poly)neuropathy; L97.516 Non-pressure chronic ulcer of other part of right foot with bone involvement without evidence of necrosis; Z79.84 Long term (current) use of oral hypoglycemic drugs | CPT/HCPCS: 99212 ==

== ENCOUNTER 2023-06-08 12:38 | Outpatient (CLI) | payer OTHER, SELFPAY ==
--- OUTSIDE RECORDS SUMMARY | 2023-06-08 12:41 | XMS_ITS | Clinical Summary ---
Author Name Unknown Organization [facility] Address [address] [facility] [place] [address] Care Team Providers Care Supervisor Spinning Name Role Phone Kevin Nelson MD Primary Care Provider [phone] Neetu Soria APRN LITHOGRAPHIC RETOUCHER APPRENTICE Unavailable [phone] Allergies Active Allergy Reactions Criticality Noted Date Comments Atorvastatin Unknown 07/27/2013 Muscles weak and sore Beta Adrenergic Blockers Fatigue 07/27/2013 Severe fatigue Lisinopril Cough 07/27/2013 Metoprolol Fatigue 08/08/2013 headaches Medications Medication Sig Dispensed Refills Start Date End Date Status losartan (COZAAR) 50 MG tablet Take 50 mg by mouth 2 times daily Active Multiple Vitamin (DAILY MULTIVITAMIN PO) Take 1 tablet by mouth daily Active nitroglycerin (NITROSTAT) 0.[address] 0.4 mg under the tongue every 5 minutes as needed for chest pain Active Omeprazole Magnesium (PRILOSEC OTC PO) Take 20 mg by mouth daily Active albuterol (PROAIR HFA, PROVENTIL HFA, VENTOLIN HFA) 108 (90 BASE) MCG/ACT inhaler Inhale 2 puffs into the lungs every 6 hours as needed for shortness of breath / dyspnea or wheezing Active metFORMIN (GLUCOPHAGE) 850 MG tablet Take 850 mg by mouth 2 times daily (with meals) Active glipiZIDE (GLUCOTROL) 5 MG tablet Take 2.5 mg by mouth daily Active cyanocobalamin (VITAMIN B-12) 1000 MCG tablet Take by mouth daily Active ipratropium-albutero l (COMBIVENT RESPIMAT) 20-100 MCG/ACT inhaler Inhale 1 puff into the lungs 4 times daily Active ferrous sulfate (FEROSUL) 325 (65 Fe) MG tablet Take 325 mg by mouth daily (with breakfast) Active furosemide (LASIX) 40 MG tablet Take 1 tablet (40 mg) by mouth daily 90 tablet 3 03/07/2021 Active amLODIPine (NORVASC) 2.5 MG tabletIndications:Hy perlipidemia LDL goal <70 Take 0.5 tablets (1.25 mg) by mouth daily 90 tablet 3 03/07/2021 Active levofloxacin (LEVAQUIN) 750 MG tablet Take 750 mg by mouth daily 4 weeks 10/18/2021 Active clopidogrel (PLAVIX) 75 MG tabletIndications:Co ronary artery disease involving [place] coronary artery of [place] heart without angina pectoris Take 1 tablet (75 mg) by mouth daily 90 tablet 3 12/25/2021 Active isosorbide mononitrate (IMDUR) 30 MG 24 hr tabletIndications:DO E (dyspnea on exertion) Take 1 tablet (30 mg) by mouth daily 90 tablet 3 12/25/2021 Active ranolazine (RANEXA) 500 MG 12 hr tabletIndications:Co ronary artery disease involving [place] coronary artery of [place] heart with other form of angina pectoris (H24) Take 1 tablet (500 mg) by mouth 2 times daily 180 tablet 3 12/25/2021 Active rosuvastatin (CRESTOR) 20 MG tabletIndications:Hy perlipidemia LDL goal <70 Take 1 tablet (20 mg) by mouth every evening 90 tablet 4 04/18/2022 Active Active Problems Problem Noted Date Diagnosed Date PAD (peripheral artery disease) (H24) 04/18/2022 Peripheral edema 03/07/2021 Abnormal findings on diagnos tic imaging of heart and coronary circulation 07/11/2020 Overview: Added automatically from request for surgery [id number] Pre-syncope 08/07/2019 Status post coronary angiogram 03/02/2019 MONCADA (dyspnea on exertion) 02/25/2019 Overview: Added automatically from request for surgery [id number] Unstable angina 11/15/2016 Chest pain 08/08/2015 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) 07/11/2020 03/07/2021 Overview: Added automatically from request for surgery [id number] Left subscapular pain 12/25/20132013 Dyspnea on exertion 12/25/2013 12/27/19 14 Immunizations Name Administration Dates Next Due Influenza (High Dose) 3 brooke nt vaccine 11/21/2013 Influenza (IIV3) PF 01/17/2015, 3,12/22/2011,2010,12/24/2009,12/11/2008,12/08/2007,1 ,12/24/2005 Pneumo Conj 13-V (2010&after) 04/27/2015 Pneumococcal 23 valent 11/01/2003 TD,PF 7+ (Tenivac) 11/06/2005 Tdap (Adult) Unspecified Formulation 08/18/2011 Zoster vaccine, live 12/08/2006 Family History Medical History Relation Comments Heart Disease Brother [place] in 50 + Heart Disease Father [place], and [place] Hypertension Mother Respiratory Mother copd Heart Disease Sister stents in 70s Relation Status Comments Brother Alive Father Mother Sister Alive Social History Tobacco Use Types Packs/Day Years Used Date Smoking Tobacco: Former Cigarettes 1 20 1 965 - 02/24/1984 Smokeless Tobacco: Never Tobacco Cessation:Counseling Given: Not Answered Alcohol Use Standard Drinks/Week Comments Not Currently 0 (1 standard drink = 0.6 oz pur e alcohol) rarely PHQ-2 Answer Date Recorded PHQ-2 Score 3 04/18/2022 Adolescent Education Answer Date Record ed Getting School Help Needed Not on file 12/09 Sex and Gender Information Value Date Recorded Sex Assigned at Not on file Gender Identity Not on file Sexual Orientation Not on file Last Filed Vital Signs Vital Sign Reading Time Taken Comments Blood Pressure 112/60 06/16/2022 8:28 AM CDT Pulse 80 06/16/2022 8:28 AM CDT Temperature 35.8 ??C (96.4 ??F) 07/18/2020 5:57 PM CD T Respiratory Rate 16 07/18/2020 5:57 PM CDT Oxygen Saturation 97% 06/16/2022 8:28 AM CDT Inhaled Oxygen Concentration - - Weight 95.4 kg (210 lb 4.8 oz) 06/16/2022 8:28 A M CDT Height 180.3 cm (5' 11) 06/16/2022 8:28 AM CDT Body Mass Index 29.33 06/16/2022 8:28 AM CDT Plan of Treatment Health Maintenance Due Date Last Done Comments ANNUAL REVIEW OF HM ORDERS 1938 DIABETIC FOOT EXAM 1940 MICROALBUMIN 1938 RSV VACCINE ( & 60+) (1 - 1-dose 60+ series) 1998 FALL RISK ASSESSMENT 08/28/2003 A1C 02/06/2020 08/07/2019, 10/25, 08/13/2015, Additional history exists DTAP/TDAP/TD IMMUNIZATION (2 - Td or Tdap) 08/17/2021 08/18/2011, 08/18/2011, 11/06/2005, Additional history exists COVID-19 Vaccine ( season) 2022 12/13/2020, 04/21/2020, 03/31/2020 INFLUENZA VACCINE (#1) 2022 , 11/13/2020, 12/06/2019, Additional history exists MEDICARE ANNUAL WELLNESS VISIT 11/12/2022 11/12/2021, 08/28/2020 PHQ-2 (once per calendar year) 2023 04/18/2022, 04/18/2022, 03/21/2019, Additional history exists EYE EXAM 04/09/2023 04/09/2022 BMP 05/28/2023 05/27/2022, 06/24, 07/18/2020, Additional history exists LIPID 06/13/2023 06/12/2022, 09/24, 09/23/2018, Additional history exists ADVANCE CARE PLANNING 09/28/2023 09/27/2018 Pneumococcal Vaccine: 65+ Years Completed 04/27/2015, 11/01/2003 ZOSTER IMMUNIZATION Completed 01/27/2019, 11/24/2018, 12/08/2006 HPV IMMUNIZATION Aged Out No longer e ligible based on patient's age to complete this topic IPV IMMUNIZATION Aged Out No longer e ligible based on patient's age to complete this topic MENINGITIS IMMUNIZATION Aged Out No l onger eligible based on patient's age to complete this topic RSV MONOCLONAL ANTIBODY Aged Out No l onger eligible based on patient's age to complete this topic Medical Devices Implanted Type Area Glue Cook Device Identifier Shelf Expiration Date Model / Serial / Lot Stent Resolute Praveen De 2.7fr [id number] [id number] Implanted:09/2019 at [facility] (Quantity not on file) Stent Drug Eluting (SHERI) [employer] 01/14/2020 [id number] / / [id number] Procedures Procedure Name Priority Date/Time Associated Diagnosis Comments LIPID PROFILE Routine 06/12/2022 8:45 AM CDT BASIC METABOLIC PANEL Routine 05/27/2022 8:22 AM CDT HEMOGLOBIN A1C Routine 08/07/2019 3:43 PM CDT Near syncope from Last 3 Months or Most Recently Relevant to Health Maintenance Results * Lipid Profile (06/12/2022 8:45 AM CDT) Cholesterol (External) 109 100 - 199 mg/dl NON-INTERFACE D (ONBASE SCANS) Triglycerides (External) 125 0 - 149 mg/dl NON-INTERFACE D (ONBASE SCANS) HDL Cholesterol (External) 41 >39 mg/dl NON-INTERFACE D (ONBASE SCANS) LDL-Cholesterol (External) 46 0 - 99 mg/dl NON-INTERFACE D (ONBASE SCANS) Blood BLOOD SPECIMEN / Unknown 06/12/2022 8:45 AM CDT Narrative [facility]FT - 06/17/2022 1:13 PM CDT Verified by Michael Almaraz on 06/17/2022. Kevin Nelson MD LAB - BLOOD ORDERABL ES MICHAEL PFBecca NON-INTERFACED (ONBASE SCANS) * (ABNORMAL) Basic metabolic panel (05/27/2022 8:22 AM CDT) Sodium (External) 139 136 - 145 mmol/L NON-INTERFACED (ONBASE SCANS) Potassium (External) 4.6 3.5 - 5.1 mmol/L NON-INTERFACED (ONBASE SCANS) Chloride (External) 100 98 - 107 mmol/L NON-INTERFACED (ONBASE SCANS) CO2 (External) 25 22 - 29 mmol/L NON-INTERFACED (ONBASE SCANS) Anion Gap (External) 14 5 - 18 NON-INTERFACED (ONBASE SCANS) Glucose (External) 281(H) 70 - 99 mg/dL NON-INTERFACED (ONBASE SCANS) Calcium (External) 9.7 8.8 - 10.2 mg/dL NON-INTERFACED (ONBASE SCANS) Urea Nitrogen (External) 17 8 - 23 mg/dL NON-INTERFACED (ONBASE SCANS) Creatinine (External) 1.16 0.70 - 1.20 mg/dL NON-INTERFACED (ONBASE SCANS) BUN/Creatinine Ratio (External) 15 10 - 20 NON-INTERFACED (ONBASE SCANS) GFR Estimated (External) 62(L) >90 ml/min/1.7 3m2 NON-INTERFACED (ONBASE SCANS) Blood BLOOD SPECIMEN / Unknown 05/27/2022 8:22 AM CDT Narrative [facility] - 05/29/2022 7:22 AM CDT Verified by Denver Cordoba on 05/29/2022. Kevin Nelson MD LAB - BLOOD ORDERABL ES LLEOEZSarina PFT NON-INTERFACED (ONBASE SCANS) * (ABNORMAL) Hemoglobin A1c (08/07/2019 3:43 PM CDT) Hemoglobin A1C 6.2(H) 0 - 5.6 % 08/07/2019 4:24 PM CDT [facility] Comment: Normal <5.7% Prediabetes 5.7-6.4% ??Diabetes 6.5% or higher - adopted from ADA consensus guidelines. Blood specimen (specimen) 08/07/2019 3:43 PM CDT 08/07/2019 3:44 PM CDT Dionicio Collins MD LAB - BLOOD ORDERABL ES [facility] [address] [place] [address], [facility] [phone] from Last 3 Months or Most Recently Relevant to Health Maintenance Advance Directives For more information, please contact: [phone] Documents on File Type Date Recorded Patient Personal Lines Insurance Agent Expl anation Advance Directives and Living Will 09/27/2018 1:00 PM Health Care Directiv e 10/08/2011 * Full Code (Latest Code Status on File) Date Activated Date Inactivated Comments 08/07/2019 3:25 PM 08/08/2019 3:31 PM Question Answer Comments Code status determined by: Discussion with patie nt/legal decision maker * Full Code Date Activated Date Inactivated Comments 11/15/2016 12:45 AM 11/15/2016 10:02 AM * Full Code Date Activated Date Inactivated Comments 08/08/2015 1:39 PM 08/09/2015 1:33 PM * Full Code Date Activated Date Inactivated Comments 12/26/2013 10:57 AM 08/08/2015 1:39 PM * Full Code Date Activated Date Inactivated Comments 12/25/2013 6:32 PM 12/26/2013 10:57 AM Healthcare Agents on File Name Relationship Healthcare Agent Relationshi p Communication Yamilex Madera Spouse Health Care Agent Gianluca Mad[place] Son Second Alternate Health Care Agent Amanda Del [place] Daughter First Alternate Health Care Agent Care Teams Supervisor Spinning Relationship Specialty Start Date End Date Kevin Nelson MD [address] [place] [address] PCP - General 04/17/14 Neetu Soria, CYBER SECURITY ADMINISTRATOR LITHOGRAPHIC RETOUCHER APPRENTICE [address] [place] [address] Assigned Heart and Vascular Provider 06/28/22
--- OUTSIDE RECORDS SUMMARY | 2023-06-08 12:41 | XMS_ITS | Referral Summary ---
Author Name Unknown Organization [facility] Address [address] [facility] [place] [address] Care Team Providers Care Director Of Audiology Name Role Phone Kevin Nelson MD Primary Care Provider [phone] Neetu Soria APRN CYCLE COUNTER Unavailable [phone] Allergies Active Allergy Reactions Criticality Noted Date [...] 75 MG tabletIndications:Co ronary artery disease involving [place] coronary artery of [place] heart without angina pectoris Take 1 tablet (75 mg) by mouth daily 90 tablet 3 12/25/2021 Active isosorbide mononitrate (IMDUR) 30 MG 24 hr tabletIndications:DO E (dyspnea on exertion) Take 1 tablet (30 mg) by mouth daily 90 tablet 3 12/25/2021 Active ranolazine (RANEXA) 500 MG 12 hr tabletIndications:Co ronary artery disease involving [place] coronary artery of [place] heart with other form of angina pectoris [...] Overview: Added automatically from request for surgery [id number] Pre-syncope 08/07/2019 Status post coronary angiogram 03/02/2019 MONCADA (dyspnea on exertion) 02/25/2019 Overview: Added automatically from request for surgery [id number] Unstable angina 11/15/2016 Chest pain 08/08/2015 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) Overview: [...] artery disease of n ative artery of [place] heart with stable angina pectoris (H24) 07/11/2020 03/07/2021 Overview: Added automatically from request for surgery [id number] Left subscapular pain 12/25/20132013 Dyspnea on exertion 12/25/2013 12/27/19 14 Immunizations Name Administration Dates Next Due Influenza (High Dose) 3 brooke nt vaccine 11/21/2013 Influenza (IIV3) PF 01/17/2015, 3,12/22/2011,2010,12/24/2009,12/11/2008,12/08/2007,1 ,12/24/2005 Pneumo Conj 13-V (2010&after) 04/27/2015 Pneumococcal 23 valent 11/01/2003 TD,PF 7+ (Tenivac) 11/06/2005 Tdap (Adult) Unspecified Formulation 08/18/2011 Zoster vaccine, live 12/08/2006 Social History Tobacco Use Types Packs/Day Years [...] 06/16/2022 8:28 AM CDT Plan of Treatment Not on file Medical Devices Implanted Type Area Straight Ruling Machine Operator Device Identifier Shelf Expiration Date Model / Serial / Lot Stent Resolute [place] De 2.7fr [id number] Ronyx [id number] Implanted:09/2019 at [facility] (Quantity not on file) Stent Drug Eluting (SHERI) [employer] 01/14/2020 [id number] / / [id number] Procedures Procedure Name Priority Date/Time Associated Diagnosis [...] Nelson MD LAB - BLOOD ORDERABL ES Performing Organization Address City/[facility]/ZIP Co de Phone Number [facility] NON-INTERFACED (ONBASE SCANS) * (ABNORMAL) Basic metabolic [...] Nelson MD LAB - BLOOD ORDERABL ES Performing Organization Address City/[facility]/ZIP Co de Phone Number [facility] NON-INTERFACED (ONBASE SCANS) * (ABNORMAL) Hemoglobin A1c (08/07/2019 3:43 PM CDT) Hemoglobin A1C 6.2(H) 0 - 5.6 % 08/07/2019 4:24 PM CDT [facility] Comment: Normal <5.7% Prediabetes 5.7-6.4% ??Diabetes 6.5% or higher - adopted from ADA consensus guidelines. Blood specimen (specimen) 08/07/2019 3:43 PM CDT 08/07/2019 3:44 PM CDT Dionicio Collins MD LAB - BLOOD ORDERABL ES [facility] [address] [address], [facility] [phone] from Last 3 Months or Most Recently Relevant to Health Maintenance Advance Directives For more information, please contact: [phone] Documents on File Type Date Recorded Patient Patient Intake Representative Expl anation Advance Directives and Living Will 09/27/2018 1:00 PM Health Care Directiv e 10/08/2011 * Full Code (Latest Code Status on File) Date Activated Date Inactivated Comments 08/07/2019 3:25 PM 08/08/2019 3:31 PM Question Answer Comments Code status determined by: Discussion with kattye nt/legal decision maker * Full Code Date [...] First Alternate Health Care Agent Care Teams Director Of Audiology Relationship Specialty Start Date End Date Kevin Nelson MD [address] [place] [address] PCP - General 04/17/14 Neetu Soria, CANOPY STRINGER CYCLE COUNTER [address] [place] [id number] Assigned Heart and Vascular Provider 06/28/22
--- OUTSIDE RECORDS SUMMARY | 2023-06-08 12:41 | XMS_ITS | Continuity of Care Document ---
Author Name Unknown Organization [facility] Address [address] [place] [address] Phone Care Team Providers Care String Laster Name Role Phone Arun LEDEZMA, PhD, Marky Unavailable Unavai lable Allergies, Adverse Reactions, Alerts Substance Reaction Status Criticality Beta-Blockers (Beta-Adrenergic Blocking Agts) Active No Information metoprolol Active No Information lisinopril Active No Information atorvastatin Active No Information Medications Medication Instructions Dosage Effective Dates (start - stop) Status Comments metformin 850 mg tablet - Ac tive LOSARTAN POTASSIUM (unknown strength) Not Available - Active OMEPRAZOLE (unknown strength) Not Available - Active PLAVIX (unknown strength) Not Available - Active RANOLAZINE ER (unknown strength) Not Available - Active ROSUVASTATIN CALCIUM (unknown strength) Not Available - Active ISOSORBIDE MONONITRATE (unknown strength) Not Available - Active NITROGLYCERIN (unknown strength) Not Available - Active FUROSEMIDE (unknown strength) Not Available - Active GLIPIZIDE (unknown strength) Not Available - Active Procedures Procedure Date Office/Outpatient Visit,Jo Saini 2023 Advance Directives Directive Yes / No Effective Date File Name No Information Encounters Encounter Description Practice Location Reason(s) For Visit Diagnoses Date Provider Providers Copied on Encounter Office/Outpat ient Visit,[place], [facility], [address], [place], [id number], [place] tel:[phone] [facility] - [facility] Paresthesia of skin Arun Negro. [facility], [address], [place], [address], [place]. tel:[phone] Referring Provider: Luis Stevenson, [facility] [address] [facility] [address], [place], [address]. tel:[phone] Family History Family Member Type Diagnosis Age At Onset No Information Payers Payer name Insurance type Covered constitution party ID Opal champagne(s) [employer] Advantage [id number] Social History Type Description Quantity Date Captured Comments Alcohol Use Details Unknown Caffeine Use Details Unknown Tobacco Use Status No Information Smoking Status Former smoker Non-Smoking Tobacco Use Details : No Details Available : No Details Available Sex Male Vital Signs Date / Time: Height Weight BMI Pulse Rate Blood Pressure Temperature Respiratory Rate Body Surface Area Head Circumference Head Circ. Percentile Wt./Ochoa. Percentile BMI percentile Pulse Ox Inhaled Ox 9:12 AM 71.26 in 93.440 kg (206.00 lbs) 28.5 2 kg/m eter (2) Chief Complaint And Reason For Visit No Information Reason For Referral Reason For Referral No Information History Of Present Illness Encounter Date Complaint History Of Prese nt Illness No Information Functional Status Date Functional Assessmen t No Information Instructions Date Instruction Additional Infor mation No Information Assessments Type Assessment Date No Information Patient Care Teams Name Effective Dates (start - stop) Status Members No Information
--- OUTSIDE RECORDS SUMMARY | 2023-06-08 12:42 | XMS_ITS | Encounter Summary ---
Author Name Unknown Organization [facility] Address [address] [facility] [place] [address] Care Team Providers Care Labor Relations Or Personnel Negotiator Name Role Phone Kevin Nelson MD Primary Care Provider [phone] Franck Alfaro MD Unavailable [phone] Neetu Soria APRN SVP MARKETING Unavailable [phone] Reason for Visit * Reason Onset Date Comments general call 06/14/2022 Already did lab work at [place] prior to Thursday06/16/[address] Soria. Is it necessary to do labs at [facility]? Encounter Details Date Type Department Care Team (Late st Contact Info) Description 06/14/[address] [place] [address] Kevin Nelson MD [address] [place] [phone] general call (Already did lab work at [facility] prior to Thursday06/16/[address] Soria. Is it necessary to do labs at [facility]?) Social History Tobacco Use Types Packs/Day Years Used Date Smoking Tobacco: Former Cigarettes 1 20 1 965 - 02/24/1984 Smokeless Tobacco: Never Alcohol Use Standard Drinks/Week Comments Not Currently 0 (1 standard drink = 0.6 oz pur e alcohol) rarely PHQ-2 Answer Date Recorded PHQ-2 Score 3 04/18/2022 Sex and Gender Information Value Date Recorded Sex Assigned at Not on file Gender Identity Not on file Sexual Orientation Not on file documented as of this encounter Miscellaneous Notes * Telephone Encounter - Deysi Bella - 06/14/2022 12:50 PM CDT General Call Reason for Call: Labs What are your questions or concerns: Already did lab work at [facility] prior to Thursday06/16/[address] Soria. Is it necessary to do labs at [facility]? Date of last appointment with provider: 12/25/21 Okay to leave a detailed message?: Yes at Cell number on file: Telephone Information: documented in this encounter Plan of Treatment Not on file documented as of this encounter Visit Diagnoses Not on filedocumented in this encounter Additional Health Concerns Assessment Noted Time PHQ-9 Depression Total Score: 10 023 12:46 PM EMBEDDED SYSTEMS DESIGNER documented as of this encounter Care Teams Labor Relations Or Personnel Negotiator Relationship Specialty Start Date End Date Kevin Nelson MD [address] [place] [address] PCP - General 04/17/14 Franck Alfaro MD [address] [place] [address] Assigned Heart and Vascular Provider 04/19/22 06/27/22 Neetu Soria APRN SVP MARKETING [address] [place] [address] Assigned Heart and Vascular Provider 06/28/22 documented as of this encounter
--- OUTSIDE RECORDS SUMMARY | 2023-06-08 12:42 | XMS_ITS | Encounter Summary ---
Author Name Unknown Organization [place] Address [address] [facility] [place] [address] Care Team Providers Care Enterprise Resource Planning Consultant Name Role Phone System, Provider Not In Primary Care Provider Un available Clinic, [facility] Primary Care Provider Kevin Nelson MD Primary Care Provider Simon Gudino MD Unavailable Unavail able Ellen Govea PA-C Unavailable Unav ailable Franck Alfaro MD Unavailable [phone] Yang July E RECRUITMENT MANAGER AD OPERATIONS INTERN Unavailable Franck Alfaro MD Unavailable [phone] Yang July E RECRUITMENT MANAGER AD OPERATIONS INTERN Unavailable Encounter Details Date Type Department Care Team (Late st Contact Info) Description 09/04/2009 Office Visit-[facility] [place] [address] [facility] [address] [place] [phone] Yang Neetu E, RECRUITMENT MANAGER AD OPERATIONS INTERN [address] [facility] [address] [place] [id number] Social History Tobacco Use Types Packs/Day Years Used Date Smoking Tobacco: Never Assessed Sex and Gender Information Value Date Recorded Sex Assigned at Not on file Gender Identity Not on file Sexual Orientation Not on file documented as of this encounter Progress Notes * Neetu Soria NP - 09/06/2009 1:51 PM CDT Progress Note Created by: Neetu Soria N.P. [id number] DATE: 09/04/2009 [place] DATE OF : 1940 AGE: [age] years old Referring Physician: KRYSTLE CARLOS CURRENT DIAGNOSES 1. - Angina Pectoris, 413.9 2. SC-S/P Anterior, 412 3. PTCA, V45.82 4. - CAD, 414.00 5. - Hyperlipidemia, 272.4 6. - Hypertension, benign, 401.1 ALLERGIES atenolol atorvastatin Beta blockers, Marked fatigue Lisinopri I MEDICATIONS (prior to changes made today) 1. Simvastatin 40 mg Tablet, 1 p.o. qHS 2. Nitroglycerin 0.4 mg Tablet, Sublingual, PRN 3. Cozaar 25 mg Tablet, 1 p.o. twice daily dispense as written 4. Aspirin 81 Mg Tablet, 1 p.o. daily 5. Centrum Silver Tablet, 1 p.o. daily CHIEF COMPLAINTS Medication check HISTORY OF PRESENT ILLNESS This is a delightful 69-year-old male who presents to the [facility] [place] [facility] today for a follow-up visit. He is a patient of Dr. Gudino seen in our clinic for a past medical history of: Coronary artery disease, hyperlipidemia and hypertension. Rosales has a known history of coronary artery disease and did suffer an anterior non-ST elevated myocardial infarction and subsequently underwent stenting of his mid left anterior descending in 2006. Heis intolerant to beta blockade due to extreme fatigue and has remained on Cozaar for control of hisblood pressure. Over the last few months his Cozaar was changed to generic losartan. He saw Dr. Gudino in follow-up and admitted to worsening limiting dyspnea on exertion. He is not experiencing any chest discomfort. He had undergone a nuclear stress test last year, which was normal, therefore, he was set up to undergo coronary angiography with these worsening symptoms. This was done two weeks ago by Dr. Hadley. He was found to have normal left ventricular function. He was noted to have a patent left anterior descending vessel at the stent site and did have 50 to 60% apical left anterior descending disease, moderate right coronary artery, mild posterolateral disease, mild left main disease and70% disease in a small diagonal vessel. There was no clear evidence of obstructive coronary disease causing symptoms other than small vessel disease. Therefore, medical management was continued. He did go off his generic Cozaar to see if his symptoms improved. He returns today for a reassessment. Rosales tells me he has been feeling well. He denies any chest discomfort, neck, arm or jaw pain with activity or at rest. He does tell me he gets short of breath if he is doing activity and this has been unchanged. He denies any shortness of breath at rest. He denies orthopnea or paroxysmal nocturnal dyspnea. He tells me that he does not feel like he has sleep apnea, however, he is not sure of this. He does not snore and he does feel rested in the mornings. His positional light- headedness has improved some off the Cozaar, but he does get this occasionally still. His blood pressure today is 158/74 with a heart rate of 60. His lungs are clear. There is no evidence of any jugular venous distention or peripheral edema. Right femoral pulse is palpable without audible bruit. Distal dorsalis pedis and posterior tibial palpable bilaterally. He tells me he does have some numbness in his left index finger after an intravenous started there hitting his nerve. This has been ongoing for the last week. Further review of systems and physical examination as noted below. PAST HISTORY Past Medical Illnesses: hyperlipidemia, hypertension Past Cardiac Illnesses: coronary artery disease, S/P myocardial infarction, (non-st) Cardiology Procedures-Invasive: cardiac cath (left) December 2006, cardiac cath (left) Jul 2009 Cardiology Procedures-Noninvasive: echocardiogram Mar 2007, stress echo Nov 2007, stress echo Jul 2008 Cardiac Cath Results: 12/30 CAD w/lesion in mid LAD,LAD 40-50% stenosis, distal LAD 60%, 2nd diagonal 70%, RCA 40%,1st posterolateral 40%.SHERI to mid LAD.08/02 Norm LVF,No WMAs,No restenosis of SHERI to LAD,med tx, if med txfails, possible intervention to sm.vessels,see report PMHx Echo Results: 04/02 Mod LVH, Trace MR, TR, AR, borderline Aortic Root dilatation. PMHx Stress Echo Results: 11/30 dyspnea, chest pain. ST segment depression noted, no ST segment elevation. Mild LVH, No Regional WMA, trace MR and aortic insuff. 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 RESPIRATORY pt states since he started Cozaar he has felt light headed and SOB., same CARDIOVASCULAR dizziness, dyspnea on exertion ABDOMINAL denies ulcer disease, hematochezia or melena. MUSCULOSKELETAL Left pointer finger has no feeling in it since IV was attempted in Hospital 2 weeks ago NEUROLOGICAL headaches, since starting Cozaar, same PSYCHIATRIC denies any history of depression, substance abuse or change in cognitive functions. ENDOCRINE denies any history of thyroid disease or diabetes mellitus. HEMATOLOGICAL/IMMUNOLOGIC easy bruising PHYSICAL EXAMINATION VITAL SIGNS: Blood Pressure: 158/74Sitting, Right arm, large cuff Pulse- 60.00/min. Weight- 222.90 lbs. Height- 67.00 Temperature- .00 CONSTITUTIONAL well developed, well nourished, in no acute distress SKIN warm and dry to touch, no apparent skin lesions, or masses noted. HEAD normocephalic, atraumatic EYES Pupils equal and round ENT no pallor or cyanosis, dentition good NECK carotid pulses are full and equal bilaterally, JVP normal, no carotid bruit, no thyromegaly CHEST clear to auscultation, normal respiratory excursion CARDIAC regular rhythm, S1 normal, S2 normal, No S3 or S4, Apical impulse not displaced, no murmurs, gallops or rubs detected. ABDOMEN abdomen soft, bowel sounds normoactive PERIPHERAL PULSES pulses full and equal in all extremities, no bruits auscultated. EXTREMITIES & BACK no clubbing, cyanosis or edema NEUROLOGICAL no gross motor deficits noted, affect appropriate, oriented to time, person and place. MEDICATIONS UPDATED/STARTED TODAY: Cozaar 25 mg Tablet, 1 p.o. twice daily dispense as written, #60 MEDICATIONS REFILLED/STOPPED TODAY: Cozaar 25 mg Tablet 1 p.o. twice daily Physician Order IMPRESSIONS/PLAN 1. Coronary artery disease. Rosales has a history of anterior non-ST elevated myocardial infarction andstenting of a mid left anterior descending in 2006. Due to worsening limiting dyspnea on exertion he underwent coronary angiography last week showing no clear evidence of cardiovascular disease otherthan small vessel disease. He was noted to have a patent left anterior descending stent. Unfortunately he has been intolerant to beta blockade due to fatigue. His shortness of breath has been somewhat persistent, but has not increased. 2. Hypertension. His blood pressure is uncontrolled. He has nowbeen off his losartan. He is adamant about restarting Cozaar trade name as he tells me he had no symptoms prior to this change. Therefore, I have given him a prescription for Cozaar 25 mg twice daily, dispense as written. He does monitor his blood pressure at home and is seen by his primary medicaldoctor on a fairly regular basis. I have asked him to notify our clinic with continuous elevated systolic blood pressure greater than 140 mm of mercury. 3. Hyperlipidemia. Most recent levels were at goal in November of 2008. 4. Positional dizziness. If this persists despite control of his blood pressure and on the trade name Cozaar medication, I have asked him to meet with his primary medical doctor for further evaluation. Recent laboratory work did not show any evidence of dehydration. 5. I have asked him to speak to his primary medical doctor about his left finger numbness after an intravenous placement there. I would like Rosales to return in three months with Dr. Gudino. He is to notify our clinic with any worsening shortness of breath or light-headedness or any chest discomfort, for which he could undergo atrial of isosorbide. Thank you for allowing me to participate in this patient's care. TODAYS ORDERS 1. F/U with Simon Gudino MD 3 months Neetu Soria N.P. documented in this encounter Plan of Treatment Not on file documented as of this encounter Visit Diagnoses Not on filedocumented in this encounter Care Teams Enterprise Resource Planning Consultant Relationship Specialty Start Date End Date System, Provider Not In PCP - General Clinic 07/26/13 10/12/13 Abbey Steve [address] [place] [id number] PCP - General 10/13/13 04/16/14 Kevin Nelson MD [address] [place] [address] PCP - General 04/17/14 Simon Gudino MD Assigned Heart and Vascular Provider 12/16/19 05/08/20 Ellen Govea PA-C Assigned Heart and Vascular Provider 05/09/20 03/16/21 Franck Alfaro MD [address] [place] [address] Assigned Heart and Vascular Provider 03/17/21 12/27/21 Neetu Soria, JENNA AD OPERATIONS INTERN [address] [place] [address] Assigned Heart and Vascular Provider 12/28/21 04/18/22 Franck Alfaro MD [address] [place] [address] Assigned Heart and Vascular Provider 04/19/22 06/27/22 Neetu Soria, JENNA AD OPERATIONS INTERN [address] [place] [address] Assigned Heart and Vascular Provider 06/28/22 documented as of this encounter
--- OUTSIDE RECORDS SUMMARY | 2023-06-08 12:42 | XMS_ITS | Encounter Summary ---
Author Name Unknown Organization [place] Address [address] [facility] [place] [address] Care Team Providers Care Level Vial Inside Grinder Name Role Phone System, Provider Not In Primary Care Provider Un available Clinic, [facility] Primary Care Provider Kevin Nelson MD Primary Care Provider [phone] Simon Gudino MD Unavailable Unavail able Ellen Govea PA-C Unavailable Unav ailable Franck Alfaro MD Unavailable [phone] Yang Neetu E POCKET SETTER LOCKSTITCH SHEET METAL WORKER HELPER Unavailable Franck Alfaro MD Unavailable [phone] Yang Neeut E POCKET SETTER LOCKSTITCH SHEET METAL WORKER HELPER Unavailable [phone] Encounter Details Date Type Department Care Team (Late st Contact Info) Description 08/16/2009 Office Visit-[facility] [address] [place] [id number] Simon Gudino MD Social History Tobacco Use Types Packs/Day Years Used Date Smoking Tobacco: Never Assessed Sex and Gender Information Value Date Recorded Sex Assigned at Not on file Gender Identity Not on file Sexual Orientation Not on file documented as of this encounter Progress Notes * Simon Gudino MD - 08/17/2009 3:39 PM CDT Progress Note Created by: Simon Gudino M.D. DATE: 08/16/2009 [place] DATE OF : 1940 AGE: [age] years old Referring Physician: KRYSTLE CARLOS CURRENT DIAGNOSES 1. - Angina Pectoris, 413.9 2. MT-S/P Anterior, 412 3. PTCA, V45.82 4. - CAD, 414.00 5. - Hyperlipidemia, 272.4 6. - Hypertension, benign, 401.1 ALLERGIES atenolol atorvastatin Beta blockers, Marked fatigue Lisinopri I MEDICATIONS (prior to changes made today) 1. Simvastatin 40 mg Tablet, 1 p.o. qHS 2. Nitroglycerin 0.4 mg Tablet, Sublingual, PRN 3. Cozaar 25 mg Tablet, 1 p.o. twice daily 4. Aspirin 81 Mg Tablet, 1 p.o. daily 5. Centrum Silver Tablet, 1 p.o. daily CHIEF COMPLAINTS Cardiac Assessment and Followup of - CAD HISTORY OF PRESENT ILLNESS I had the opportunity to see Mr. Madera today. This 68-year-old gentleman was seen in followup of his coronary disease. In 2006 he underwent stenting of a severe lesion in the mid LAD after presentingwith an acute coronary syndrome/non ST elevation myocardial infarction. He initially did very well after that. He noted a year ago that he was experiencing some dyspnea that was limiting when he would climb hills but is okay on level ground. He comes in this year saying that has steadily worsened. It is now occurring with modest activity. It keeps him from doing the activities he would like and leaves him feeling quite short of breath and easily fatigued. He is not having hailee chest discomfort. He also notes his Cozaar was changed to generic losartan recently, and since then he feels dizzy all the time, moreso when he stands up. He has not had syncope or near-syncope. He is not having orthopnea or edema, focal neurologic symptoms, myalgias or muscle weakness. A year ago because of his dyspnea with climbing hills a stress study was done where he went 7 minutes and 20 seconds on a Jatinder protocol and had a normal stress echo. Lipids are followed with Dr. Servin and I reviewed them from last fall. He was at excellent control.He takes his blood pressure regularly. It usually runs in the 120s systolic. Today he was 140/70 and even then had some vague complaints of dizziness. His cardiopulmonary examination was otherwise normal today. He has gained about 12 pounds in the last two years. This seems unlikely to explain his progressive or limiting symptoms. PAST HISTORY Past Medical Illnesses: hyperlipidemia, hypertension Past Cardiac Illnesses: coronary artery disease, S/P myocardial infarction, (non-st) Cardiology Procedures-Invasive: cardiac cath (left) December 2006 Cardiology Procedures-Noninvasive: echocardiogram Mar 2007, stress echo Nov 2007, stress echo Jul 2008 Cardiac Cath Results: 12/2006 CAD with lesion in mid LAD, LAD 40-50% stenosis, distal LAD 60%, 2nd diagonal 70%, RCA 40%,1st posterolateral 40%. 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 RESPIRATORY pt states since he started Cozaar he has felt light headed and SOB. CARDIOVASCULAR per HPI ABDOMINAL denies ulcer disease, hematochezia or melena. MUSCULOSKELETAL denies any history of arthritic symptoms or back problems. NEUROLOGICAL headaches, since starting Cozaar PSYCHIATRIC denies any history of depression, substance abuse or change in cognitive functions. ENDOCRINE denies any history of thyroid disease or diabetes mellitus. HEMATOLOGICAL/IMMUNOLOGIC easy bruising PHYSICAL EXAMINATION VITAL SIGNS: Blood Pressure: 140/71Sitting, Left arm, regular cuff Pulse- 66.00/min. Weight- 220.60 lbs. Height- 67.00 Temperature- .00 CONSTITUTIONAL cooperative, alert and oriented,well developed, well nourished, in no acute distress. SKIN warm and dry to touch, no apparent skin lesions, or masses noted. HEAD normocephalic, atraumatic EYES Pupils equal and round ENT no pallor or cyanosis, dentition good NECK carotid pulses are full and equal bilaterally, JVP normal, no carotid bruit, no thyromegaly CHEST clear to auscultation, normal symmetry, normal respiratory excursion, no use of accessory muscles CARDIAC regular rhythm, S1 normal, S2 normal, No S3 or S4, Apical impulse not displaced, no murmurs, gallops or rubs detected. ABDOMEN abdomen soft, bowel sounds normoactive, no masses, no hepatosplenomegaly, non- tender, no bruits, moderately obese PERIPHERAL PULSES pulses full and equal in all extremities, no bruits auscultated. EXTREMITIES & BACK no clubbing, cyanosis or edema NEUROLOGICAL no gross motor deficits noted, affect appropriate, oriented to time, person and place. MEDICATIONS UPDATED/STARTED TODAY: MEDICATIONS REFILLED/STOPPED TODAY: Clopidogrel 75 Mg Tablet 1 p.o. daily #0 Physician Order IMPRESSIONS/PLAN 1. Progressive and limiting dyspnea on exertion, may well be an anginal equivalent. He already has had a stress study which was unrevealing but this has some chance of being a false positive. I reviewed with him the options of repeating a stress study or proceeding directly to angiography. I think given his progressive and limiting symptoms and the negative stress study last year, that it will require angiography to evaluate further. He is in agreement with this. He understands the risks, indications, and alternatives and wants to proceed next week, and I will arrange for this. 2. History of anterior MT with subsequent normalization of ejection fraction. He is not having heart failure or significant arrhythmia symptoms at this time. 3. Dyslipidemia, well treated. 4. Dizziness on current generic losartan. Blood pressure is reasonable at home. I told him he can stop his losartan for two weeks to see if this has any impact on his symptomatology and depending on the response to that we can address whether he needs a different medication or not. He has previously been intolerant to DARRYL inhibitors and beta-blockers. It was a pleasure to see this gentleman. Further recommendations will await the results of this study. Thank you for having me involved in his care. Please let me know if you have any questions. TODAYS ORDERS 1. Pre Cath Labs 2. Left Heart Cath Simon Gudino M.D. documented in this encounter Plan of Treatment Not on file documented as of this encounter Visit Diagnoses Not on filedocumented in this encounter Care Teams Level Vial Inside Grinder Relationship Specialty Start Date End Date System, Provider Not In PCP - General Clinic 07/26/13 10/12/13 [place] [id number] PCP - General 10/13/13 04/16/14 Kevin Nelson MD [address] [facility] [place] [address] PCP - General 04/17/14 Simon Gudino MD Assigned Heart and Vascular Provider 12/16/19 05/08/20 Ellen Govea PA-C Assigned Heart and Vascular Provider 05/09/20 03/16/21 Franck Alfaro MD [address] [place] [address] Assigned Heart and Vascular Provider 03/17/21 12/27/21 Neetu Soria, JENNA SHEET METAL WORKER HELPER [address] [place] [address] Assigned Heart and Vascular Provider 12/28/21 04/18/22 Franck Alfaro MD [address] [place] [address] Assigned Heart and Vascular Provider 04/19/22 06/27/22 Neetu Soria, JENNA SHEET METAL WORKER HELPER [address] [place] [address] Assigned Heart and Vascular Provider 06/28/22 documented as of this encounter
--- OUTSIDE RECORDS SUMMARY | 2023-06-08 12:42 | XMS_ITS | Encounter Summary ---
Author Name Unknown Organization [place] Address [address] [facility] [place] [address] Care Team Providers Care Wire Photo Operator News Name Role Phone System, Provider Not In Primary Care Provider Un available Clinic, [facility] Primary Care Provider Kevin Nelson MD Primary Care Provider Simon Gudino MD Unavailable Unavail able Ellen Govea PA-C Unavailable Unav ailable Franck Alfaro MD Unavailable [phone] Yang Neetu E INSTRUMENT TECHNICIAN HELPER SILK SCREEN REPAIRER Unavailable Franck Alfaro MD Unavailable [phone] Yang Neetu E INSTRUMENT TECHNICIAN HELPER SILK SCREEN REPAIRER Unavailable [phone] Encounter Details Date Type Department Care Team (Late st Contact Info) Description 08/06/2007 Office Visit-[facility] [address] [place] [phone] Simon Gudino MD Social History Tobacco Use Types Packs/Day Years Used Date Smoking Tobacco: Never Assessed Sex and Gender Information Value Date Recorded Sex Assigned at Not on file Gender Identity Not on file Sexual Orientation Not on file documented as of this encounter Progress Notes * Simon Gudino MD - 08/10/2007 11:02 AM CDT Progress Note Created by: Simon Gudino M.D. DATE: 08/06/2007 PRATIK MADERA DATE OF : 1940 AGE: [age] years old Referring Physician: ALTHEA CEE Referring Clinic: [facility] CURRENT DIAGNOSES 1. - CAD, 414.00 2. PTCA, V45.82 3. - Hyperlipidemia, 272.4 4. - Hypertension, benign, 401.1 ALLERGIES NKA MEDICATIONS (prior to changes made today) 1. Aspirin 81 mg, 1 p.o. q.d. 2. Clopidogrel 75 mg, 1 p.o. q.d. 3. Cozaar 50 mg, 1 p.o. q.d. 4. Metoprolol ER 25 mg, 1 p.o. q.d. 5. Simvastatin 40 mg, 1 p.o. qHS 6. Nitroglycerin 0.4 mg, PRN 7. Centrum Silver Therapeutic Multiple Vitamins with Minerals, 1 p.o. q.d. CHIEF COMPLAINTS Followup of - CAD HISTORY OF PRESENT ILLNESS I had the pleasure of seeing Mr. Madera today. This 66-year-old gentleman is seen about nine months after an anterior myocardial infarction treated with emergent stenting of his LAD with a drug-eluting stent. He had subsequent normalization of his ejection fraction. He comes in today saying that hisonly complaint at this time is that he is more tired with activity than he has been. He still triesto walk 2 miles a day, but it is more effort. He is doing it slower. He is more tired afterwards. He is not getting chest, arm, neck, or jaw discomfort or any of his previous ischemic symptoms with activity or at other times. He is not having any shortness of breath or wheezing. His blood pressure has been controlled. His lipids have been well controlled. He notes that this fatigue started after he was hospitalized with influenza in April, and he has never quite recovered. He has gone back to walking 2 miles a day, but just never seems to regain his conditioning. He is having no myalgias or muscle weakness. He is not having any bleeding episodes, palpitations, or syncope. His medications have not changed since that time. He notes that he had a number of studies with Dr. Ignacio including thyroid function, kidney function, etc., and was told that they were unrevealing. I do not have these results. He notes that his heart rate has been typically around 50. Today when I examine him, it is 44. Blood pressure is controlled at 134/69. Cardiopulmonary examination was otherwise normal. PAST HISTORY Past Medical Illnesses: hyperlipidemia, hypertension Past Cardiac Illnesses: coronary artery disease, S/P myocardial infarction, (non-st) Cardiology Procedures-Invasive: cardiac cath (left) December 2006 Cardiology Procedures-Noninvasive: echocardiogram Mar 2007 Cardiac Cath Results: 12/2006 drug eluting stent to LAD Left Ventricular Ejection Fraction: EF normal -Mar 2007 SOCIAL HISTORY Alcohol Use - drinks rarely and socially; Smoking - used to smoke but quit, 1977 and 1ppd x 20yrs; Diet - low sodium (less than 2 grams) and low fat Diet; Lifestyle - , children, drives car and active lifestyle; Exercise - exercises daily, cardiac rehabilitation graduate, treadmill, walking,x 45 minutes, wood-splitting and 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 RESPIRATORY negative for productive cough, negative for dyspnea, negative for wheezing CARDIOVASCULAR per HPI ABDOMINAL denies ulcer disease, hematochezia or melena. MUSCULOSKELETAL denies any history of arthritic symptoms or back problems. NEUROLOGICAL denies any history of recurrent strokes, headaches, TIA, or seizure disorder. PSYCHIATRIC denies any history of depression, substance abuse or change in cognitive functions. ENDOCRINE denies any history of thyroid disease or diabetes mellitus. HEMATOLOGICAL/IMMUNOLOGIC easy bruising PHYSICAL EXAMINATION VITAL SIGNS: Blood Pressure: 134/69 Sitting, Left arm, regular cuff Pulse- 50.00/min. Weight- 209.20 lbs. Height- 67.00 Temperature- .00 CONSTITUTIONAL cooperative, [...] no masses, no hepatosplenomegaly, non- tender, no bruits PERIPHERAL PULSES pulses full and equal in all extremities, no bruits auscultated. EXTREMITIES & BACK no clubbing, cyanosis or edema NEUROLOGICAL no gross motor deficits noted, affect appropriate, oriented to time, person and place. MEDICATIONS UPDATED/STARTED TODAY: IMPRESSION/PLAN: 1. Coronary artery disease, status post anterior myocardial infarction in December 2006 (which was treated with emergent stenting with normalization of his ejection fraction). No recurrence of ischemic symptoms. No heart failure symptoms or findings. 2. Dyslipidemia, well treated. 3. Fatigue. Etiology is unclear at this time. It seems like he has never regained his stamina afterthe influenza. His heart rate at rest is slow. There may be a chronotropic limitation issue to his symptoms that has prevented him from getting back his usual conditioning. In addition, he may just have beta- kye fatigue. At this time, I will have him cut his metoprolol dose in half and take it at bedtime. He will do this for two weeks. If he is not significantly better, he will then stop it for two weeks. He will then contact me at that time to see how he is doing. If he is no better with that, I will then want to get a stress study to look for restenosis as the cause of his fatigue. 4. Hypertension, controlled. It was a pleasure seeing this nice gentleman. Thank you for having me involved in his care. Please let me know if you have any questions. TODAYS ORDERS 1. F/U with Simon Gudino MD 1 year Simon Gudino M.D. documented in this encounter Plan of Treatment Not on file documented as of this encounter Visit Diagnoses Not on filedocumented in this encounter Care Teams Wire Photo Operator News Relationship Specialty Start Date End Date System, Provider Not In PCP - General Clinic 07/26/13 10/12/[address] [address] PCP - General 10/13/13 04/16/14 Kevin Nelson MD [address] [place] [address] PCP - General 04/17/14 Simon Gudino MD Assigned Heart and Vascular Provider 12/16/19 05/08/20 Ellen Govea PA-C Assigned Heart and Vascular Provider 05/09/20 03/16/21 Franck Alfaro MD [address] [place] [id number] Assigned Heart and Vascular Provider 03/17/21 12/27/21 Neetu Soria, JENNA SILK SCREEN REPAIRER [address] [place] [id number] Assigned Heart and Vascular Provider 12/28/21 04/18/22 Franck Alfaro MD [address] [place] [id number] Assigned Heart and Vascular Provider 04/19/22 06/27/22 Neetu Soria, JENNA SILK SCREEN REPAIRER [address] [place] [id number] Assigned Heart and Vascular Provider 06/28/22 documented as of this encounter
--- OUTSIDE RECORDS SUMMARY | 2023-06-08 12:42 | XMS_ITS ---
Author Name Unknown Organization [place] Address [address] [facility] [place] [address] Care Team Providers Care Carding Machine Operator Name Role Phone Kevin Nelson MD Primary Care Provider [phone] Neetu Soria APRN FISH FRYER Unavailable [phone] Active Problems Problem Noted Date Diagnosed Date PAD (peripheral artery disease) (H24) 04/18/2022 Peripheral edema 03/07/2021 Abnormal findings on diagnos tic imaging of heart and coronary circulation 07/11/2020 Overview: Added automatically from request for surgery [id number] Pre-syncope 08/07/2019 Status post coronary angiogram 03/02/2019 MONCADA (dyspnea on exertion) 02/25/2019 Overview: Added automatically from request for surgery [id number] Unstable angina 11/15/2016 Chest pain 08/08/2015 Coronary artery disease of n ative artery of [place] heart with stable angina pectoris (H24) Overview: [...] nodules Overview: CT chest 2007, no change Current Oncology Plans No current plan information found. Past Plans No past plan information found. Radiation Treatments * No radiation treatments are documented for this patient in [facility]. Treatments may have been administered in another system. Lifetime Dose Tracking * Chemical Lifetime Dose Automatic Entry Manual Entr y Air Kerma 773.2 mGy 0 mGy 773.2 mGy Aleksander DAP 121,692 mGy-cm2 0 mGy-cm2 121,692 mGy- cm2 Resolved Problems Problem Noted Date Diagnosed Date Resolved Date Coronary artery disease of n ative artery of [place] heart with stable angina pectoris (H24) 07/11/2020 03/07/2021 Overview: Added automatically from request for surgery [id number] Left subscapular pain 12/25/20132013 Dyspnea on exertion 12/25/2013 12/27/19 14
--- OUTSIDE RECORDS SUMMARY | 2023-06-08 12:42 | XMS_ITS | Encounter Summary ---
Author Name Unknown Organization [place] Address [address] [place] [address] Care Team Providers Care Directory Carrier Name Role Phone System, Provider Not In Primary Care Provider Un available Clinic, [facility] Primary Care Provider Amari Nelson MD Primary Care Provider Simon Gudino MD Unavailable Unavail able Ellen Govea PA-C Unavailable Unav ailable Franck Alfaro MD Unavailable [phone] Yang Neetu E CONE TRUCKER SENIOR SALES ASSISTANT Unavailable Franck Alfaro MD Unavailable [phone] Yang Neetu E CONE TRUCKER SENIOR SALES ASSISTANT Unavailable [phone] Encounter Details Date Type Department Care Team (Late st Contact Info) Description 03/10/2013 Office Visit-[facility] [address] [place] [phone] Simon Gudino MD Social History Tobacco Use Types Packs/Day Years Used Date Smoking Tobacco: Never Assessed Sex and Gender Information Value Date Recorded Sex Assigned at Not on file Gender Identity Not on file Sexual Orientation Not on file documented as of this encounter Progress Notes * Simon Gudino MD - 03/14/2013 2:53 PM CST Progress Note Created by: Siomn Gudino M.D. DATE: 03/10/2013 FOREST MADERA DATE OF : 1940 AGE: [age] years old Referring Physician: AMARI NELSON Referring Clinic: [facility] CURRENT DIAGNOSES 1. - CAD, 414.00 2. - Hyperlipidemia, 272.4 3. - Hypertension, benign, 401.1 4. PTCA, V45.82 5. OK-S/P Anterior, 412 6. - Angina Pectoris, 413.9 ALLERGIES atenolol atorvastatin Beta blockers, Marked fatigue Lisinopri I MEDICATIONS (prior to changes made today) 1. Aspirin 81 Mg Tablet, 1 p.o. daily 2. Centrum Silver Tablet, 1 p.o. daily 3. losartan 50 mg tablet, 1 p.o. twice daily 4. Nitroglycerin 0.4 mg Tablet, Sublingual, PRN 5. Prilosec OTC 20 mg Tablet, Delayed Release (E.C.), 1 p.o. daily 6. Simvastatin 40 mg Tablet, 1 p.o. qHS CHIEF COMPLAINTS Followup of - CAD, Followup of - Hyperlipidemia, Followup of - Hypertension, benign and Followup ofMI-S/P Anterior HISTORY OF PRESENT ILLNESS I had the pleasure of seeing Mr. Madera today. This 72-year-old gentleman was seen in follow-up of his history of coronary disease with a non-ST elevation OK treated with LAD stenting approximately six years ago. He had done well since that time. He comes in today noting that since last spring or earlier he has been experiencing exertional gassy feeling and then tightness and discomfort across hisupper chest whenever he does more than mild activity. This is always relieved with rest and only occurs with moderate or greater activity. However, the pattern has been steadily worsening in terms ofcoming on more frequently and with less exertion. 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 With treadmill and other exercise he is not getting dyspnea and he has no orthopnea, new edema, palpitations, dizziness or syncope. He denies myalgias or muscle weakness. He is without claudication or focal neurologic symptoms. He notes that he is on a diet and weight loss program because of type 2 diabetes mellitus with a recent hemoglobin A1c review with him showing that it was 6.6% and a fasting glucose of 130. I reviewed other labs from your office from December of this year showing his LDL at an excellent level at 68with an HDL of 47 and triglycerides of 131. His creatinine is normal and his electrolytes were normal. I reviewed these with him today. A little over a year ago he was noted to have a normal stress study with your office, but he was not having symptoms at that time. His ejection fraction was normal at that time. EXAMINATION: Cardiovascular examination is normal. There is no evidence of volume overload and the lungs are clear. His blood pressure was 148/68. He states at home it runs between 130 and 140 systolic. PAST HISTORY Past Medical Illnesses: hyperlipidemia, hypertension, GERD, history of hematuria, external hemorrhoids, diabetes mellitus-diet controlled, peripheral neuropathy Past Cardiac Illnesses: coronary artery disease, S/P myocardial infarction, (non-st) Cardiac/Vasc Procedures-Invasive: cardiac cath (left) December 2006, cardiac cath (left) Jul 2009 Cardiology Procedures-NonInvasive: echocardiogram Mar 2007, stress echo Nov 2007, stress echo Jul 2008, echocardiogram Nov 2011 Cardiac Cath Results: 12/30 CAD w/lesion in [...] cath 12/30, EF 55-60% by stress echo 11/30, EF<GT>55% by Echo -Nov 2011 LVEF of 60% documented via echocardiogram on 12/12/2011 SOCIAL HISTORY Alcohol Use - drinks rarely and socially; Smoking - used to smoke but quit, 1977 and 1ppd x 20yrs; Diet - low sodium (less than 2 grams), low fat Diet, caffeine use-1-2 per day and decaf; Lifestyle -, children, drives car and active lifestyle; Exercise - walking and exercises daily for approximately 30 minutes; Seat Belt Use - always; 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 EYES wears eye glasses/contact lenses, cataracts EARS, NOSE, THROAT, MOUTH denies any hearing loss, epistaxis, hoarseness or difficulty speaking. RESPIRATORY dyspnea with exertion, stairs, a little bit, cough, now and then CARDIOVASCULAR per HPI ABDOMINAL positive for history of GERD GENITOURINARY-MALE no concerns MUSCULOSKELETAL pain in both feet, occas. muscle cramps NEUROLOGICAL headaches, occ. PSYCHIATRIC denies any history of depression, substance abuse or change in cognitive functions. ENDOCRINE non-insulin dependent diabetes mellitus HEMATOLOGICAL/IMMUNOLOGIC medication allergies VASCULAR Numbness in toes PHYSICAL EXAMINATION VITAL SIGNS: Blood Pressure: 148/68Sitting, Left arm, large cuff Pulse- 58.00/min. Weight- 217.00 lbs. Height- 67 BMI Measurement: 34 CONSTITUTIONAL well developed, well nourished, in no acute distress SKIN warm and dry to touch, no apparent skin lesions, or masses noted. HEAD normocephalic, atraumatic EYES Pupils equal and round ENT no pallor or cyanosis, dentition good, upper dentures present NECK carotid pulses are full and equal [...] extremities, no bruits auscultated. EXTREMITIES & BACK trace bilateral ankle edema, no cyanosis present, no erythema NEUROLOGICAL no gross motor deficits noted, affect appropriate, oriented to time, person and place. MEDICATIONS UPDATED/STARTED TODAY: MEDICATIONS REFILLED/STOPPED TODAY: Symbicort 80-4.5 mcg/actuation HFA Aerosol Inhaler Take as Directed #0 (Zero) Physician Order IMPRESSIONS/PLAN 1. Angina pectoris. This is new this year. It remains activity related, but is progressive and doesinterfere with his usual activities. I have discussed the meaning of this with him including prognostic and diagnostic issues. We discussed initial trials of medical therapy, as well as risk stratification and stress study versus proceeding with early angiography. At this point in time he wanted todo initial trials at restoring normal functional status with medical therapy assuming he had a low risk stress study. He is intolerant of beta blockers. I will start him on isosorbide mononitrate 60 mg a day and get a stress echo. I will have him back in a month. If his stress study is low risk andhis angina is under very good control we can continue to monitor, however, if it continues to progress and/or interferes with his normal activities on medical therapy or he has a higher risk stress study I will recommend proceeding at that time with angiography. 2. Coronary artery disease. Normal ejection fraction one year ago. History of LAD stenting about six years ago. 3. Dyslipidemia, at excel lent goal on statin therapy. 4. Hypertension. It appears to be reasonably controlled by his home blood pressures, although is upsome today. There will likely be some blood pressure lowering effect with his isosorbide mononitrate so we will reassess his blood pressure on that treatment. I did warn him about potential issues with orthostatic hypotension when starting the isosorbide. 5. He reinforced the other messages from his other physicians regarding the benefits of exercise and weight loss with his diabetes mellitus andother risk factors including blood pressure. It was pleasure seeing this gentleman. Thank you for having me involved in his care. Further recommendations will await the results of the above assessments. TODAYS ORDERS 1. F/U with Ellen Alejandre PA-C 1 month 2. Treadmill Stress Echo 1 week, OFF MEDS, Simon Gudino M.D. documented in this encounter Plan of Treatment Not on file documented as of this encounter Visit Diagnoses Not on filedocumented in this encounter Care Teams Directory Carrier Relationship Specialty Start Date End Date System, Provider Not In PCP - General Clinic 07/26/13 10/12/[address] [address] PCP - General 10/13/13 04/16/14 Amari Nelson MD [address] [place] [id number] PCP - General 04/17/14 Simon Gudino MD Assigned Heart and Vascular Provider 12/16/19 05/08/20 Ellen Govea PA-C Assigned Heart and Vascular Provider 05/09/20 03/16/21 Franck Alfaro MD [address] [place] [address] Assigned Heart and Vascular Provider 03/17/21 12/27/21 Neetu Soria APRN SENIOR SALES ASSISTANT [address] [place] [address] Assigned Heart and Vascular Provider 12/28/21 04/18/22 Franck Alfaro MD [address] [address] Assigned Heart and Vascular Provider 04/19/22 06/27/22 Neetu Soria APRN SENIOR SALES ASSISTANT [address] [place] [address] Assigned Heart and Vascular Provider 06/28/22 documented as of this encounter
--- OUTSIDE RECORDS SUMMARY | 2023-06-08 12:42 | XMS_ITS | Encounter Summary ---
Author Name Unknown Organization [place] Address [address] [facility] [address] Care Team Providers Care Strike On Machine Operator Name Role Phone System, Provider Not In Primary Care Provider Un available Clinic, [facility] Primary Care Provider Kevin Nelson MD Primary Care Provider Simon Gudino MD Unavailable Unavail able Ellen Govea PA-C Unavailable Unav ailable Franck Alfaro MD Unavailable [phone] Yang Neetu E CENTRAL STERILE TECHNICIAN DRYING OVEN ATTENDANT Unavailable Franck Alfaro MD Unavailable [phone] Yang Neetu E CENTRAL STERILE TECHNICIAN DRYING OVEN ATTENDANT Unavailable Encounter Details Date Type Department Care Team (Late st Contact Info) Description 01/20/2007 Office Visit-[facility] [address] [place] [address] Unknown, MD Josh Social History Tobacco Use Types Packs/Day Years Used Date Smoking Tobacco: Never Assessed Sex and Gender Information Value Date Recorded Sex Assigned at Not on file Gender Identity Not on file Sexual Orientation Not on file documented as of this encounter Progress Notes * Unknown, MD Josh - 01/21/2007 12:26 PM CST Progress Note Created by: Ellen Alejandre PA-C DATE: 01/20/2007 [id number] FOREST MADERA DATE OF : 1940 AGE: [age] years old Referring Physician: LEE ANN CEE Referring Clinic: [facility] CURRENT DIAGNOSES 1. - Hyperlipidemia, 272.4 2. PTCA, V45.82 3. - CAD, 414.00 4. - Hypertension, benign, 401.1 ALLERGIES NKA MEDICATIONS (prior to changes made today) 1. Aspirin 81 mg, 1 p.o. q.d. 2. Clopidogrel 75 mg, 1 p.o. q.d. 3. Cozaar 50 mg, 1 p.o. q.d. 4. Metoprolol ER 25 mg, 1 p.o. q.d. 5. Simvastatin 40 mg, 1 p.o. qHS 6. Nitroglycerin 0.4 mg, PRN CHIEF COMPLAINTS fu angiogram HISTORY OF PRESENT ILLNESS Mr. Madera is a delightful gentleman who presents to the [facility] today for a follow up visit regarding his recent hospitalization. As you recall, he presented with an acute non-ST segment elevation PR and was found to have a 90% stenosis in the mid LAD. He did undergo successful angioplasty and stenting with a Cypher eluted stent. At that time, he was noted to have a 70% second diagonal disease, which was small in caliber. He had a 40% stenosis in the distal RCA. He did well during his hospitalization with no further complications. He has been doing Cardiac Rehab out at [facility] without any difficulty. He seems to be tolerating his medications without too much difficulty. He currently denies any chest pain, dyspnea, syncope, near syncope, orthopnea, PND, or peripheral edema. His only complaint is that he does have some occasional lightheadedness that lasts longer thana few seconds with changing position. He had previously been on Cozaar 25 mg one tablet daily and now is at 50 mg daily on top of the metoprolol Extended Release. He also complains of cold fingers. His groin has healed up nicely with no further complications. All other review of systems, past medical history, and physical examination findings are noted below. PAST HISTORY Past Medical Illnesses: hyperlipidemia, hypertension Past Cardiac Illnesses: coronary artery disease, S/P myocardial infarction, (non-st) Cardiology Procedures-Invasive: cardiac cath (left) December 2006 Cardiac Cath Results: stent to LAD , drug eluting PHYSICAL EXAMINATION VITAL SIGNS: Blood Pressure: 142/74 Sitting, Left arm, large cuff Pulse- 58.00/min. Weight- 213.00 lbs. Height- 73.00 Temperature- .00 CONSTITUTIONAL cooperative, alert and oriented,well developed, well nourished, in no acute distress. SKIN warm and dry to touch, no apparent skin lesions, or masses noted. HEAD normocephalic, atraumatic EYES Pupils equal and round ENT no pallor or cyanosis, dentition good NECK carotid pulses are full and equal bilaterally, JVP normal, no carotid bruit, no thyromegaly CHEST clear to auscultation CARDIAC regular rhythm, S1 normal, S2 normal, [...] time, person and place. MEDICATIONS UPDATED/STARTED TODAY: Aspirin 81 mg, 1 p.o. q.d., DIRECTED Clopidogrel 75 mg, 1 p.o. q.d., DIRECTED Cozaar 50 mg, 1 p.o. q.d., DIRECTED Metoprolol ER 25 mg, 1 p.o. q.d., DIRECTED Simvastatin 40 mg, 1 p.o. qHS, DIRECTED Nitroglycerin 0.4 mg, PRN, DIRECTED IMPRESSION/PLAN: 1. Status post acute non-ST segment elevation PR for which he underwent angioplasty and stenting with a Cypher drug eluted stent to the LAD. He does have mild to moderate disease of the RCA and a 70%narrowing in the second diagonal branch, which was small in caliber. 2. He will remain on Plavix for a minimum of one year and aspirin indefinitely. 3. Hypertension, which is borderline. However, hisCardiac Rehab reports states that his blood pressure systolically is in the 120s. He is having somelightheadedness that may be due to the Cozaar or the metoprolol, and I am going to have him split his Cozaar to 25 mg in the morning and 25 mg at night and have him take his metoprolol Extended Release in the evening time and see if this makes a difference with his lightheadedness or dizziness. 4. Dyslipidemia. The patient was started on simvastatin, which he seems to be tolerating without any myalgias or muscle weakness. He will need to have a fasting lipid profile and ALT drawn in approximately six to eight weeks. He will return for a follow up visit with Dr. Gudino in approximately three months or sooner if he has any problems in the interim. Thank you for allowing us to be involved in the care of Mr. Madera. Cc:Lee Ann Ignacio M.D. CONRADO Garcia documented in this encounter Plan of Treatment Not on file documented as of this encounter Visit Diagnoses Not on filedocumented in this encounter Care Teams Strike On Machine Operator Relationship Specialty Start Date End Date System, Provider Not In PCP - General Clinic 07/26/13 10/12/13 Clinic, [facility] [address] [facility], [place] [address] PCP - General 10/13/13 04/16/14 Kevin Nelson MD [address] [facility], [place] [address] PCP - General 04/17/14 Simon Gudino MD Assigned Heart and Vascular Provider 12/16/19 05/08/20 Ellen Govea, PA-C Assigned Heart and Vascular Provider 05/09/20 03/16/21 Franck Alfaro MD [address] [place] [address] Assigned Heart and Vascular Provider 03/17/21 12/27/21 Neetu Soria, CENTRAL STERILE TECHNICIAN DRYING OVEN ATTENDANT [address] [place] [address] Assigned Heart and Vascular Provider 12/28/21 04/18/22 Franck Alfaro MD [address] [place] [address] Assigned Heart and Vascular Provider 04/19/22 06/27/22 Neetu Soria, CENTRAL STERILE TECHNICIAN DRYING OVEN ATTENDANT [address] [place] [address] Assigned Heart and Vascular Provider 06/28/22 documented as of this encounter
--- OUTSIDE RECORDS SUMMARY | 2023-06-08 12:42 | XMS_ITS | Encounter Summary ---
Author Name Unknown Organization [place] Address [address] [place] [address] Care Team Providers Care Mainspring Winder And Oiler Name Role Phone System, Provider Not In Primary Care Provider Un available Clinic, [facility] Primary Care Provider Kevin Nelson MD Primary Care Provider Simon Gudino MD Unavailable Unavail able Ellen Govea PA-C Unavailable Unav ailable Franck Alfaro MD Unavailable [phone] Yang Neetu E FINANCIAL ADVISER CHRONIC CONDITION NURSE Unavailable Franck Alfaro MD Unavailable [phone] Yang Neetu E FINANCIAL ADVISER CHRONIC CONDITION NURSE Unavailable [phone] Encounter Details Date Type Department Care Team (Late st Contact Info) Description 12/21/2009 Office Visit-[facility] [address] [place] [phone] Simon Gudino MD Social History Tobacco Use Types Packs/Day Years Used Date Smoking Tobacco: Never Assessed Sex and Gender Information Value Date Recorded Sex Assigned at Not on file Gender Identity Not on file Sexual Orientation Not on file documented as of this encounter Progress Notes * Simon Gudino MD - 12/21/2009 3:43 PM CDT Progress Note Created by: Simon Gudino M.D. DATE: 12/21/2009 PRATIK MADERA DATE OF : 1940 AGE: [age] years old Referring Physician: KRYSTLE CARLOS CURRENT DIAGNOSES 1. - CAD, 414.00 2. PTCA, V45.82 3. AZ-S/P Anterior, 412 4. - Hyperlipidemia, 272.4 5. - Hypertension, benign, 401.1 ALLERGIES atenolol atorvastatin Beta blockers, Marked fatigue Lisinopri I MEDICATIONS (prior to changes made today) 1. Simvastatin 40 mg Tablet, 1 p.o. qHS 2. Nitroglycerin 0.4 mg Tablet, Sublingual, PRN 3. Cozaar 25 mg Tablet, 1 p.o. twice daily dispense as written 4. Aspirin 81 Mg Tablet, 1 p.o. daily 5. Centrum Silver Tablet, 1 p.o. daily CHIEF COMPLAINTS Followup of - CAD and Followup of Dyspnea HISTORY OF PRESENT ILLNESS I had the opportunity to see Mr. Madera today. This is a 69-year-old gentleman who has recently beenevaluated for very progressive and limiting fatigue and dyspnea. He has a history of coronary disease with previous stenting of the LAD for an AZ in 2006 with subsequent normalization of ejection fraction. Because of progressive and markedly limiting symptoms to the point where he could hardly get around the house, he underwent coronary angiography this summer, which demonstrated his stent to be widely patent, to have no hemodynamically significant coronary lesions, and a normal ejection fraction. Thus, his marked dyspnea and fatigue was not an anginal equivalent. He then noted that he had bee n switched from branded to generic losartan and wondered if that was part of the problem. He was switched back to brand Cozaar with a large amount of pushback from the insurance company. He states after switching back to branded Cozaar all of his symptoms have resolved. His light-headedness, his fatigue and his dyspnea and he is back to being able to walk 3-4 miles at a time and split wood for laura rs at a time and do his usual activities. He is otherwise feeling well without myalgias, claudication, cough, dyspnea or any symptoms. He notes that he has a friend who had the problem when switched to generic losartan to a point where he could no longer even play golf or do his usual activities and this also resolved when he went back to branded Cozaar. Mr. Madera has a history of intolerance to DARRYL inhibitors, which is why he is on ARBs. He takes his blood pressure approximately two times a week and it is typically in the 125-136 systolic range and almost never higher than this so he is well controlled. Lipids are followed by his primary physician and were in excellent range last year. On exam today, there is no evidence for volume overland and lungs are clear and cardiac exam is normal. 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 RESPIRATORY SOB same, positive for dry cough CARDIOVASCULAR negative for palpitations, chest pain, orthopnea, PND, peripheral edema, syncope or claudication. ABDOMINAL denies ulcer disease, hematochezia or melena. MUSCULOSKELETAL Left pointer finger has no feeling in it since IV was attempted in Hospital 08/02 NEUROLOGICAL headaches gone PSYCHIATRIC denies any history of depression, substance abuse or change in cognitive functions. ENDOCRINE denies any history of thyroid disease or diabetes mellitus. HEMATOLOGICAL/IMMUNOLOGIC denies any food allergies, seasonal allergies, bleeding disorders or lymphadenopathy. PHYSICAL EXAMINATION VITAL SIGNS: Blood Pressure: 147/70Sitting, Left arm, large cuff Pulse- 57.00/min. Weight- 222.20 lbs. Height- 67.00 Temperature- .00 CONSTITUTIONAL well [...] time, person and place. MEDICATIONS UPDATED/STARTED TODAY: IMPRESSIONS/PLAN 1.Marked dyspnea and fatigue. At this point this appears to have been a marked reaction to generic losartan as far as can be determined by his course. Thus he will need to be maintained on branded Cozaar and I would consider it extremely inappropriate to try to place him back on generic losartan. Ihave asked him to bring in the pill's bottle so I can find out who the manometer technician is and I will check with the pharmacy. I will then anticipate reporting through [employer]. 2.Coronary artery disease. He has done well during the three years with his AZ with no change in his anatomy widely patent stent. He has no heart failure, arrhythmic or ischemic symptoms. 3.Hypertension controlled. 4.Dyslipidemia at appropriate treatment. It was a pleasure seeing this gentleman doing so much better. Thank you for having me involved in his care and please let me know if you have any questions. TODAYS ORDERS 1. F/U with Simon Gudino MD 1 year Simon Gudino M.D. documented in this encounter Plan of Treatment Not on file documented as of this encounter Visit Diagnoses Not on filedocumented in this encounter Care Teams Mainspring Winder And Oiler Relationship Specialty Start Date End Date System, Provider Not In PCP - General Clinic 07/26/13 10/12/13 [address] [place] [address] PCP - General 10/13/13 04/16/14 Kevin Nelson MD [address] [place] [address] PCP - General 04/17/14 Simon Gudino MD Assigned Heart and Vascular Provider 12/16/19 05/08/20 Ellen Govea, PA-C Assigned Heart and Vascular Provider 05/09/20 03/16/21 Franck Alfaro MD [address] [place] [address] Assigned Heart and Vascular Provider 03/17/21 12/27/21 Neetu Soria, FINANCIAL ADVISER CHRONIC CONDITION NURSE [address] [place] [address] Assigned Heart and Vascular Provider 12/28/21 04/18/22 Franck Alfaro MD [address] [place] [address] Assigned Heart and Vascular Provider 04/19/22 06/27/22 Neetu Soria, FINANCIAL ADVISER CHRONIC CONDITION NURSE [address] [place] [address] Assigned Heart and Vascular Provider 06/28/22 documented as of this encounter
--- OUTSIDE RECORDS SUMMARY | 2023-06-08 12:42 | XMS_ITS | Encounter Summary ---
Author Name Unknown Organization [place] Address [address] [facility] [place] [address] Care Team Providers Care Forklift Mechanic Name Role Phone System, Provider Not In Primary Care Provider Un available Clinic, [facility] Primary Care Provider Kevin Nelson MD Primary Care Provider [phone] Simon Gudino MD Unavailable Unavail able Ellen Govea PA-C Unavailable Unav ailable Franck Alfaro MD Unavailable [phone] Yang Neetu E HOTEL NIGHT AUDITOR SUPERVISOR MAPPING Unavailable Franck Alfaro MD Unavailable [phone] Yang Neetu E HOTEL NIGHT AUDITOR SUPERVISOR MAPPING Unavailable [phone] Encounter Details Date Type Department Care Team (Late st Contact Info) Description 04/28/2007 Office Visit-[facility] [address] [place] [phone] Simon Gudino MD Social History Tobacco Use Types Packs/Day Years Used Date Smoking Tobacco: Never Assessed Sex and Gender Information Value Date Recorded Sex Assigned at Not on file Gender Identity Not on file Sexual Orientation Not on file documented as of this encounter Progress Notes * Simon Gudino MD - 04/29/2007 12:40 PM CST Progress Note Created by: Simon Gudino M.D. DATE: 04/28/2007 PRATIK MADERA DATE OF : 1940 AGE: [age] years old Referring Physician: KRYSTLE LEROY Referring Clinic: [facility] CURRENT DIAGNOSES 1. - CAD, [...] of - CAD HISTORY OF PRESENT ILLNESS It was a pleasure to see Mr. Madera today. This 66-year-old gentleman is seen in followup of his coronary disease. He presented with a non ST elevation anterior myocardial infarction in December,, and subsequently had stenting of his LAD with a drug-eluting stent. He recovered well from that and returned to full activity without any limitations until a week ago when he came down with influenza. He is slowly recovering from that with some residual aches and fatigue, but prior to that was feeling completely normal. He had been walking on the treadmill up to 2 miles a day, as well as doing vigorous activities such as wood splitting and similar activities without any chest discomfort, dyspnea on exertion, fatigue, or other limitations. On his medications he was having some bothersome orthostatic hypotension which improved by splitting his Cozaar dose. He takes his blood pressure daily at home and states it is never above 115 systolic. When he comes in to the office here it is typically more in the 130- 140 systolic range, and he says that is true when he sees you in the office. I have recommended he have his blood pressure cuff calibrated with yours and if it calibrates well then Iwould use his home blood pressures as his usual blood pressure and consider it adequately controlled. He was having no myalgias or muscle weakness prior to the influenza. He has not had any syncope, cough, wheeze, or hemoptysis. No bleeding problems. Lipids from Dr. Leroy's office from February of this year were appropriate with triglycerides 112, total cholesterol 113, HDL 38, LDL 53, and ALT of 24. His cardiopulmonary examination is normal today. An echocardiogram done this month showed a normal ejection fraction of 60% or greater with borderline anteroapical hypokinesis. This is significantlyimproved from his acute left ventricular function. 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 INTEGUMENTARY rosacea EYES wears eye glasses/contact lenses, cataracts EARS, NOSE, THROAT, MOUTH denies any hearing loss, epistaxis, hoarseness or difficulty speaking. RESPIRATORY productive cough, dyspnea, snoring, [facility] last week with influenza type B CARDIOVASCULAR per HPI ABDOMINAL denies ulcer disease, [...] bruising PHYSICAL EXAMINATION VITAL SIGNS: Blood Pressure: 140/75 Sitting, Left arm, regular cuff Pulse- 76.00/min. Weight- 208.00 lbs. Height- 67.00 Temperature- .00 CONSTITUTIONAL cooperative, [...] IMPRESSION/PLAN: 1. Coronary artery disease, status post recent known ST segment elevation myocardial infarction. Bonny had normalization of ejection fraction and is asymptomatic for ischemia or arrhythmias and is doing well. 2. Status post LAD PTCA with a drug-eluting stent. He should continue on his aspirin and Plavix with Plavix being maintained for a year. 3. Dyslipidemia, at goal. 4. Hypertension. It appears controlled. As noted above, he will have his blood pressure cuff calibrated with Dr. Leroy. 5. This gentleman is doing very well. He has good lifestyle intervention along with his medical intervention. I recommended he continue his current regimen. I would appreciate seeing him again in three to four months to reassess for any evidence of restenosis. Thank you for having me involved in this gentleman's care. Please let me know if you have any questions. TODAYS ORDERS 1. F/U with Simon Gudino MD 3 months Simon Gudino M.D. documented in this encounter Plan of Treatment Not on file documented as of this encounter Visit Diagnoses Not on filedocumented in this encounter Care Teams Forklift Mechanic Relationship Specialty Start Date End Date System, Provider Not In PCP - General Clinic 07/26/13 10/12/13 [facility] [address] [place] [address] PCP - General 10/13/13 04/16/14 Kevin Nelson MD [address] [place] [address] PCP - General 04/17/14 Simon Gudino MD Assigned Heart and Vascular Provider 12/16/19 05/08/20 Ellen Govea PA-C Assigned Heart and Vascular Provider 05/09/20 03/16/21 Franck Alfaro MD [address] [place] [id number] Assigned Heart and Vascular Provider 03/17/21 12/27/21 Neetu Soria APRN SUPERVISOR MAPPING [address] [place] [id number] Assigned Heart and Vascular Provider 12/28/21 04/18/22 Franck Alfaro MD [address] [place] [address] Assigned Heart and Vascular Provider 04/19/22 06/27/22 Neetu Soria APRN SUPERVISOR MAPPING [address] [place] [address] Assigned Heart and Vascular Provider 06/28/22 documented as of this encounter
--- OUTSIDE RECORDS SUMMARY | 2023-06-08 12:42 | XMS_ITS | Encounter Summary ---
Author Name Unknown Organization [place] Address [address] [facility] [place] [address] Care Team Providers Care Clinical Nurse Name Role Phone System, Provider Not In Primary Care Provider Un available Clinic, [facility] Primary Care Provider Kevin Nelson MD Primary Care Provider [phone] Simon Gudino MD Unavailable Unavail able Ellen Govea PA-C Unavailable Unav ailable Franck Alfaro MD Unavailable [phone] Yang Neetu E EXPENSE CLERK CELL EFFICIENCY SUPERVISOR Unavailable Franck Alfaro MD Unavailable [phone] Yang Neetu E EXPENSE CLERK CELL EFFICIENCY SUPERVISOR Unavailable [phone] Encounter Details Date Type Department Care Team (Late st Contact Info) Description 12/11/2010 Office Visit-[facility] [address] [place] [phone] Simon Gudino MD Social History Tobacco Use Types Packs/Day Years Used Date Smoking Tobacco: Never Assessed Sex and Gender Information Value Date Recorded Sex Assigned at Not on file Gender Identity Not on file Sexual Orientation Not on file documented as of this encounter Progress Notes * Simon Gudino MD - 12/18/2010 6:18 AM CDT Progress Note Created by: Simon Gudino M.D. DATE: 12/11/2010 PRATIK MADERA DATE OF : 1940 AGE: [age] years old Referring Physician: KRYSTLE LEROY CURRENT DIAGNOSES 1. - CAD, 414.00 2. - Hyperlipidemia, 272.4 3. PTCA, V45.82 4. LA-S/P Anterior, 412 5. - Hypertension, benign, 401.1 ALLERGIES atenolol atorvastatin Beta blockers, Marked fatigue Lisinopri I MEDICATIONS (prior to changes made today) 1. Aspirin 81 Mg Tablet, 1 p.o. daily 2. Centrum Silver Tablet, 1 p.o. daily 3. Cozaar 25 mg Tablet, 1 p.o. twice daily dispense as written 4. Nitroglycerin 0.4 mg Tablet, Sublingual, PRN 5. Prilosec OTC 20 mg Tablet, Delayed Release (E.C.), 1 p.o. daily 6. Simvastatin 40 mg Tablet, 1 p.o. qHS CHIEF COMPLAINTS Cardiac Assessment, Followup of - CAD, Followup of LA-S/P Anterior and Followup of PTCA HISTORY OF PRESENT ILLNESS I had the opportunity to see Mr. Madera today. This 70-year-old gentleman was seen for follow up of his coronary disease. He is now four years out from stenting of the LAD after presenting with a non-ST elevation myocardial infarction. Clinically, he has done well over the last six months. He [id number] rounds of golf this summer and noticed no new limitations with that. He is without chest discomfort, heart failure, or arrhythmia symptoms. He has complained in the last two weeks of a sensation of dizziness, which he describes as the ground not quite looking stable. This occurred for several hours in the morning and then seems to improve. It began after he got a new glasses prescription. There is no orthostatic component, and it is not changed by sitting or lying down. His blood pressure isnormal during these episodes. He takes it several times a month, and he states that it is never outof the 120s systolic or above the mid 70s diastolic. Today, he is 128/72 in the clinic. The marked dyspnea that he had with generic losartan (which then resolved after going [place] [place] last year) remains completely resolved. He complains of no limitations from dyspnea. Heis having no claudication, focal neurologic symptoms, and denies myalgias or muscle weakness. Eleven months ago, his lipids were appropriate as were his renal function and electrolytes. He states that he is due to follow up with Dr. Leroy next month to repeat these. 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 EYES wears eye glasses/contact lenses, cataracts EARS, NOSE, THROAT, MOUTH denies any hearing loss, epistaxis, hoarseness or difficulty speaking. RESPIRATORY dyspnea with exertion, a little bit CARDIOVASCULAR positive for light headedness, negative for chest discomfort, negative for palpitations, negative for edema ABDOMINAL positive for history of GERD GENITOURINARY-MALE no concerns MUSCULOSKELETAL pain left foot, same, occas. muscle cramps NEUROLOGICAL headaches, occ. PSYCHIATRIC denies any history of depression, substance abuse or change in cognitive functions. ENDOCRINE denies any history of thyroid disease or diabetes mellitus. HEMATOLOGICAL/IMMUNOLOGIC medication allergies PHYSICAL EXAMINATION VITAL SIGNS: Blood Pressure: 128/72Sitting, Right arm, large cuff Pulse- 57.00/min. <FONT COLOR=#[id number]><FONT POINT=10> Weight- 224.30 lbs. Height- 67 CONSTITUTIONAL well developed, well nourished, in no [...] time, person and place. MEDICATIONS UPDATED/STARTED TODAY: <FONT COLOR=#[id number]><FONT POINT=10> IMPRESSION/PLAN: 1. Coronary artery disease. He is currently without ischemia, heart failure, or arrhythmia syncope.Ejection fraction was normal. His stent was widely patent. There was no significant disease in significant coronaries on an angiogram done in 2009 for his severe dyspnea. As noted, that has resolved.2. Dyslipidemia, at goal within the last year. Follow up is pending next month. 3. Hypertension, con trolled. 4. Status post LAD stenting, widely patent stent present three years post stenting in 2009. No recurrence symptoms since that time. It was a pleasure seeing this gentleman doing well. I reviewed his medications and indications withhim as well as the continued benefit and need of preventative therapy for progression of his coronary disease. At this time, I will not change his regimen. Thank you for having me involved in his care. Please let me know if you have any questions. <FONT COLOR=#[id number]><FONT POINT=10> TODAYS ORDERS 1. F/U with Ellen Alejandre PA-C 1 year Simon Gudino M.D. documented in this encounter Plan of Treatment Not on file documented as of this encounter Visit Diagnoses Not on filedocumented in this encounter Care Teams Clinical Nurse Relationship Specialty Start Date End Date System, Provider Not In PCP - General Clinic 07/26/13 10/12/13 [facility], [facility] [address] [place] [address] PCP - General 10/13/13 04/16/14 Kevin Nelson MD [address] [place] [address] PCP - General 04/17/14 Simon Gudino MD Assigned Heart and Vascular Provider 12/16/19 05/08/20 Ellen Govea PA-C Assigned Heart and Vascular Provider 05/09/20 03/16/21 Franck Alfaro MD [address] [place] [id number] Assigned Heart and Vascular Provider 03/17/21 12/27/21 Neetu Soria, EXPENSE CLERK CELL EFFICIENCY SUPERVISOR [address] [place] [id number] Assigned Heart and Vascular Provider 12/28/21 04/18/22 Franck Alfaro MD [address] [place] [id number] Assigned Heart and Vascular Provider 04/19/22 06/27/22 Neetu Soria, JENNA CELL EFFICIENCY SUPERVISOR [address] [place] [id number] Assigned Heart and Vascular Provider 06/28/22 documented as of this encounter
--- OUTSIDE RECORDS SUMMARY | 2023-06-08 12:42 | XMS_ITS | Encounter Summary ---
Author Name Unknown Organization [place] Address [address] [facility] [place] [address] Care Team Providers Care Press Machine Feeder Name Role Phone System, Provider Not In Primary Care Provider Un available Clinic, [facility] Primary Care Provider Kevin Nelson MD Primary Care Provider Simon Gudino MD Unavailable Unavail able Ellen Govea PA-C Unavailable Unav ailable Franck Alfaro MD Unavailable [phone] Yang Neetu E CATTLE BRANDER LINEN SUPPLY LOAD BUILDER Unavailable Franck Alfaro MD Unavailable [phone] Yang Neetu E CATTLE BRANDER LINEN SUPPLY LOAD BUILDER Unavailable [phone] Encounter Details Date Type Department Care Team (Late st Contact Info) Description 05/21/2010 Office Visit-[facility] [address] [place] [phone] Simon Gudino MD Social History Tobacco Use Types Packs/Day Years Used Date Smoking Tobacco: Never Assessed Sex and Gender Information Value Date Recorded Sex Assigned at Not on file Gender Identity Not on file Sexual Orientation Not on file documented as of this encounter Progress Notes * Simon Gudino MD - 05/22/2010 1:11 PM CDT Progress Note Created by: Simon Gudino M.D. DATE: 05/21/2010 PRATIK MADERA DATE OF : 1940 AGE: [age] years old Referring Physician: KRYSTLE CARLOS CURRENT DIAGNOSES 1. - Chest Pain Precordial, 786.51 2. [place]-S/P Anterior, 412 3. PTCA, V45.82 4. - CAD, 414.00 5. - Hyperlipidemia, 272.4 6. - Hypertension, benign, 401.1 ALLERGIES atenolol atorvastatin Beta blockers, Marked fatigue Lisinopri I MEDICATIONS (prior to changes made today) 1. Simvastatin 40 mg Tablet, 1 p.o. qHS 2. Nitroglycerin 0.4 mg Tablet, Sublingual, PRN 3. Prilosec OTC 20 mg Tablet, Delayed Release (E.C.), 1 p.o. daily 4. Cozaar 25 mg Tablet, 1 p.o. twice daily dispense as written 5. Aspirin 81 Mg Tablet, 1 p.o. daily 6. Centrum Silver Tablet, 1 p.o. daily CHIEF COMPLAINTS f/u from ER visit 05/10 for chest pain HISTORY OF PRESENT ILLNESS I had the opportunity to see Mr. Madera today. He was referred from the Emergency Room at [facility] after a recent episode of chest pain. This gentleman is status post a non-ST elevation TX in 2006 with subsequent LAD stenting. He stated that he awoke on the day of presentation with an upper chest pressure like a heavy book sitting on his chest. He had no other symptoms. He did not take his nitroglycerin, but presented to the Emergency Room after several hours of pain. His symptoms were promptly resolved with nitroglycerin. However in reviewing the detailed records from his EmergencyRoom and hospital admission as well as his labs and EKGs, he had no EKG changes with this. Subsequent serial troponins were all normal. In retrospect, he had been having lots and lots of heartburn prior to this and was living on [facility]. He was started on omeprazole 12/25 weeks ago and has had no further heartburn since that time. He has returned to full activities in the last 12/25 weeks including chopping wood and walking briskly and has had no exertional related chest discomfort, fatigue, dyspnea, or other symptoms. He notes that he is taking his blood pressure at least once a week. It usually runs in the 120s systolic and never above 140 systolic. 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 RESPIRATORY cough CARDIOVASCULAR per HPI ABDOMINAL positive for history of GERD MUSCULOSKELETAL pain left foot NEUROLOGICAL headaches, occ. PSYCHIATRIC denies any history of depression, substance abuse or change in cognitive functions. ENDOCRINE denies any history of thyroid disease or diabetes mellitus. HEMATOLOGICAL/IMMUNOLOGIC medication allergies PHYSICAL EXAMINATION VITAL SIGNS: Blood Pressure: 146/84Sitting, Right arm, large cuff Pulse- 62.00/min. Weight- 226.60 lbs. Height- 67.00 Temperature- .00 MEDICATIONS UPDATED/STARTED TODAY: Prilosec OTC 20 mg Tablet, Delayed Release (E.C.), 1 p.o. daily, #0 IMPRESSIONS/PLAN 1. Chest pain episodes. In retrospect, I think that this was clearly nonischemic give the lack of EKG changes and cardiac marker elevations despite three hours of symptoms. It may well have been related to his GERD and possible spasm. An angiogram done mid last year had showed his stent to be widely patent with no significant lesions elsewhere. Therefore at this time, I have recommended that he continue his current activity. If he has no further episodes, he does not need any further cardiac evaluation at this time. He will contact me if he has any further episodes so that we can plan any further evaluation if indicated. 2. History of an anterior TX. Normalization of his ejection fraction following LAD stenting. He is currently without heart failure or arrhythmia symptoms. 3. Dyslipidemia, treated. 4. Hypertension, controlled. It was a pleasure seeing this gentleman. Please let me know if you have any questions. More than 50% of this 25 minute visit was spent in fact to face time with counseling, coordination of care, and evaluation as above. Simon Gudino M.D. documented in this encounter Plan of Treatment Not on file documented as of this encounter Visit Diagnoses Not on filedocumented in this encounter Care Teams Press Machine Feeder Relationship Specialty Start Date End Date System, Provider Not In PCP - General Clinic 07/26/13 10/12/[address] [address] PCP - General 10/13/13 04/16/14 Kevin Nelson MD [address] [place] [address] PCP - General 04/17/14 Simon Gudino MD Assigned Heart and Vascular Provider 12/16/19 05/08/20 Ellen Govea PA-C Assigned Heart and Vascular Provider 05/09/20 03/16/21 Franck Alfaro MD [address] [place] [id number] Assigned Heart and Vascular Provider 03/17/21 12/27/21 Neetu Soria APRN LINEN SUPPLY LOAD BUILDER [address] [place] [id number] Assigned Heart and Vascular Provider 12/28/21 04/18/22 Franck Alfaro MD [address] [place] [id number] Assigned Heart and Vascular Provider 04/19/22 06/27/22 Neetu Soria APRN [facility] [address] [place] [id number] Assigned Heart and Vascular Provider 06/28/22 documented as of this encounter
--- OUTSIDE RECORDS SUMMARY | 2023-06-08 12:42 | XMS_ITS | Encounter Summary ---
Author Name Unknown Organization [place] Address [address] [facility] [place] [address] Care Team Providers Care Farm Rancher Name Role Phone System, Provider Not In Primary Care Provider Un available Clinic, [facility] Primary Care Provider Kevin Nelson MD Primary Care Provider [phone] Simon Gudino MD Unavailable Unavail able Ellen Govea PA-C Unavailable Unav ailable Franck Alfaro MD Unavailable Yang Neetu E DEPOSITION REPORTER MASON APPRENTICE Unavailable Franck Alfaro MD Unavailable [phone] Yang Neetu E DEPOSITION REPORTER MASON APPRENTICE Unavailable Encounter Details Date Type Department Care Team (Late st Contact Info) Description 12/15/2011 Office Visit-[facility] [address] [place] [address] Unknown, MD Josh Social History Tobacco Use Types Packs/Day Years Used Date Smoking Tobacco: Never Assessed Sex and Gender Information Value Date Recorded Sex Assigned at Not on file Gender Identity Not on file Sexual Orientation Not on file documented as of this encounter Progress Notes * Unknown, MD Josh - 01/09/2012 3:37 PM CST Progress Note Created by: Ellen Alejandre PA-C DATE: 12/15/2011 [id number] FOREST MADERA DATE OF : 1940 AGE: [age] years old Referring Physician: KRYSTLE CARLOS CURRENT DIAGNOSES 1. - CAD, 414.00 2. - Hyperlipidemia, 272.4 3. - Hypertension, benign, 401.1 4. [place]-S/P Anterior, 412 5. Shortness of breath, 786.05 6. PTCA, V45.82 ALLERGIES atenolol atorvastatin Beta blockers, Marked fatigue Lisinopri I MEDICATIONS (prior to changes made today) 1. Aspirin 81 Mg Tablet, 1 p.o. daily 2. Centrum Silver Tablet, 1 p.o. daily 3. Cozaar 50 mg tablet, 1 p.o. twice daily 4. Nitroglycerin 0.4 mg Tablet, Sublingual, PRN 5. Prilosec OTC 20 mg Tablet, Delayed Release (E.C.), 1 p.o. daily 6. Simvastatin 40 mg Tablet, 1 p.o. qHS 7. Symbicort 80-4.5 mcg/actuation HFA Aerosol Inhaler, Take as Directed CHIEF COMPLAINTS Review test results HISTORY OF PRESENT ILLNESS Mr. Madera is a delightful 71-year-old gentleman who presents to the [facility] today for a follow-up visit. As you recall, he was seen this past couple of weeks for his annual cardiology follow-up visit and he was concerned because he had shortness of breath with exertion over approximately 4-5 months. He has a history of known coronary artery disease with stenting to his LAD after presenting with an non-ST elevation [place] five years ago. He has not had any symptoms that he experienced at the time of his heart attack. His biggest complaint is that he felt short of breath. He was in to see his primary care doctor a CT of his chest was performed showing no evidence of pulmonary masses or pulmonary emboli. Also pulmonary function tests were done as well and those were near normal. He has a history of hypertension and his blood pressure was high last week when I saw him and is again high today. I questioned him about this and talked with him that we may want to try to see if we can get his blood pressure more accurately controlled. An echocardiogram wasalso obtained showing no evidence of regional wall motion abnormalities. His ejection fraction was normal. His heart size was normal. He did not have any significant valvular disease. From a cardiac standpoint I do not see any significant causes of his shortness of breath. Also he has had a stress echocardiogram done that showed no evidence of ischemia or infarction that was done at the [facility]. All other review of systems, past medical history, and physical examination findings are noted below. 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 EYES wears eye glasses/contact lenses, cataracts EARS, NOSE, THROAT, MOUTH denies any hearing loss, epistaxis, hoarseness or difficulty speaking. RESPIRATORY dyspnea with exertion, a little bit CARDIOVASCULAR positive for light headedness , occas. chest pain, heaviness with exrtion, negative for palpitations, negative for edema ABDOMINAL positive for history of GERD GENITOURINARY-MALE no concerns MUSCULOSKELETAL pain in both feet, occas. muscle cramps NEUROLOGICAL headaches, occ. PSYCHIATRIC denies any history of depression, substance abuse or change in cognitive functions. ENDOCRINE denies any history of thyroid disease or diabetes mellitus. HEMATOLOGICAL/IMMUNOLOGIC medication allergies VASCULAR Numbness, both feet PHYSICAL EXAMINATION VITAL SIGNS: Blood Pressure: 149/72Sitting, Right arm, large cuff Pulse- 71.00/min. Weight- 224.00 lbs. Height- 67.00 BMI Measurement: 35 CONSTITUTIONAL well developed, well nourished, in no [...] person and place. MEDICATIONS UPDATED/STARTED TODAY: Cozaar 50 mg tablet, 1 p.o. twice daily, #60 MEDICATIONS REFILLED/STOPPED TODAY: Cozaar 25 mg Tablet 1 p.o. twice daily dispense as written #60 Refill IMPRESSIONS/PLAN 1. Shortness of breath on exertion with unclear etiology. At this point in time it does not appear as he has no valvular heart disease, no signs of ischemia on his stress echocardiogram and he has normal heart function with no valvular disease. His lung tests were also normal. The only thing I can think of is that he does have hypertension and maybe his blood pressure is running a little bit too high. For this reason I will increase his losartan to 50 mg twice daily and see how he does with that. I have also asked him to try to increase his exercise to get him a little bit more conditioned. He has gained about 20 pounds of weight over the last four years. I will see him back in one month with a BMP at that time. If he has any problems in the interim certainly I would be happy to see him sooner. Thank you for allowing us to be involved in his care. TODAYS ORDERS 1. Return Visit 1 month 2. BMP 1 month CONRADO Garcia documented in this encounter Plan of Treatment Not on file documented as of this encounter Visit Diagnoses Not on filedocumented in this encounter Care Teams Farm Rancher Relationship Specialty Start Date End Date System, Provider Not In PCP - General Clinic 07/26/13 10/12/13 [facility] [address] [place] [address] PCP General 10/13/13 04/16/14 Kevin Nelson MD [address] [place] [address] PCP - General 04/17/14 Simon Gudino MD Assigned Heart and Vascular Provider 12/16/19 05/08/20 Ellen Govea PA-C Assigned Heart and Vascular Provider 05/09/20 03/16/21 Franck Alfaro MD [address] [place] [id number] Assigned Heart and Vascular Provider 03/17/21 12/27/21 Neetu Soria APRN MASON APPRENTICE [address] [place] [id number] Assigned Heart and Vascular Provider 12/28/21 04/18/22 Franck Alfaro MD [address] [place] [id number] Assigned Heart and Vascular Provider 04/19/22 06/27/22 Neetu Soria, JENNA [facility] [address] [place] [id number] Assigned Heart and Vascular Provider 06/28/22 documented as of this encounter
--- OUTSIDE RECORDS SUMMARY | 2023-06-08 12:42 | XMS_ITS | Encounter Summary ---
Author Name Unknown Organization [place] Address [address] [facility] [place] [address] Care Team Providers Care Supervisor Toy Parts Former Name Role Phone System, Provider Not In Primary Care Provider Un available Clinic, [facility] Primary Care Provider Kevin Nelson MD Primary Care Provider Simon Gudino MD Unavailable Unavail able Ellen Govea PA-C Unavailable Unav ailable Franck Alfaro MD Unavailable Yang Neetu E BLOOD COORDINATOR FARM OWNER OPERATOR Unavailable Franck Alfaro MD Unavailable [phone] Yang Neetu E BLOOD COORDINATOR FARM OWNER OPERATOR Unavailable Encounter Details Date Type Department Care Team (Late st Contact Info) Description 12/01/2011 Office Visit-[facility] [address] [place] [address] Unknown, MD Josh Social History Tobacco Use Types Packs/Day Years Used Date Smoking Tobacco: Never Assessed Sex and Gender Information Value Date Recorded Sex Assigned at Not on file Gender Identity Not on file Sexual Orientation Not on file documented as of this encounter Progress Notes * Unknown, MD Josh - 12/03/2011 11:59 AM CDT Progress Note Created by: Ellen Alejandre PA-C DATE: 12/01/2011 [id number] PRATIK MADERA DATE OF : 1940 AGE: [age] years old Referring Physician: KRYSTLE CARLOS CURRENT DIAGNOSES 1. - CAD, 414.00 2. - Hyperlipidemia, 272.4 3. - Hypertension, benign, 401.1 4. PTCA, V45.82 5. [place]-S/P Anterior, 412 6. Shortness of breath, 786.05 ALLERGIES atenolol atorvastatin Beta blockers, Marked fatigue [...] Aerosol Inhaler, Take as Directed CHIEF COMPLAINTS Followup of annual fu for cad, htn and hyperlipidemia HISTORY OF PRESENT ILLNESS Mr. Madera is a delightful 71-year-old gentleman who presents to the [facility] today for his annual cardiology follow-up. As you recall, he is followed, in our office by Dr. Gudino with a past medical history of known coronary artery disease who had stenting to his LAD after presenting with a non-ST elevation WI approximately five years ago. Over the last 4-5 months he has had complaints of shortness of breath with exertion. He denies any shortness of breath at rest. He denies any orthopnea or PND. He denies any abdominal distention or lower leg edema. He states this just seemed to kind of gradually come on. He previously had been walking a few miles a day and over the last 1-2 years this has been cutback to 1 mile a day 4 days a week, however he admits that over the summer months he has not been as active partly because of the hotand humid weather. He does have a history of hypertension and he states his blood pressure typically is in the 120s-130s and he rarely ever sees a number into the 140s like it is today. There has been some adjustments made to his losartan over time due to light-headedness, however, it seems as though they have him on a regimen that he certainly tolerates without difficulty. In regards to his shortness of breath, he has undergone pulmonary function tests, which appear to be normal. I do have a copy of those results. He also had a stress echocardiogram done at [place] at the hospital, which was normal with no evidence of ischemia or infarction. No other etiology couldbe determined in regards to his shortness of breath. 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 Weight- 221.30 lbs. Height- 67 BMI Measurement: 34 CONSTITUTIONAL [...] time, person and place. MEDICATIONS UPDATED/STARTED TODAY: Symbicort 80-4.5 mcg/actuation HFA Aerosol Inhaler, Take as Directed, #0 (Zero) IMPRESSIONS/PLAN 1. Shortness of breath with exertion. This appears to be new for him over the last 3-4 months. Thishas been kind of gradual. Certainly thoughts would be to do a transthoracic echocardiogram to rule out any significant valvular disease. Also to evaluate for diastolic dysfunction with his history ofhypertension. We will also evaluate his pulmonary pressures. He has had a CT of his chest to rule out any kind of tumors or abnormalities or potentially any pulmonary emboli. He has had work-up for pulmonary function tests, which were also normal. There has been no other etiology for his shortness of breath. Certainly some things to think about if there is nothing that comes up on his transthoracic echo and with a normal stress echo would be if he is overall deconditioned due to the fact that he has not been doing as much activity over the last six months due to the hot weather. I will see him back following his echocardiogram to review these results. 2. Hypertension, which appears to be slightly elevated today, however he reinsures me today that his blood pressure is always under good control. Thank you for allowing us to be involved in his care. TODAYS ORDERS 1. 2D, color flow, doppler 1 week 2. Return Visit 2 weeks CONRADO Garcia documented in this encounter Plan of Treatment Not on file documented as of this encounter Visit Diagnoses Not on filedocumented in this encounter Care Teams Supervisor Toy Parts Former Relationship Specialty Start Date End Date System, Provider Not In PCP - General Clinic 07/26/13 10/12/13 [facility], [facility] [address] [place] [address] PCP - General 10/13/13 04/16/14 Kevin Nelson MD [address] [place] [address] PCP - General 04/17/14 Simon Gudino MD Assigned Heart and Vascular Provider 12/16/19 05/08/20 Ellen Govea PA-C Assigned Heart and Vascular Provider 05/09/20 03/16/21 Franck Alfaro MD [address] [place] [id number] Assigned Heart and Vascular Provider 03/17/21 12/27/21 Neetu Soria, BLOOD COORDINATOR FARM OWNER OPERATOR [address] [place] [id number] Assigned Heart and Vascular Provider 12/28/21 04/18/22 Franck Alfaro MD [address] [place] [id number] Assigned Heart and Vascular Provider 04/19/22 06/27/22 Neetu Soria, BLOOD COORDINATOR FARM OWNER OPERATOR [address] [place] [id number] Assigned Heart and Vascular Provider 06/28/22 documented as of this encounter
--- OUTSIDE RECORDS SUMMARY | 2023-06-08 12:42 | XMS_ITS | Encounter Summary ---
Author Name Unknown Organization [place] Address [address] [facility] [place] [address] Care Team Providers Care Machinery Erector Name Role Phone System, Provider Not In Primary Care Provider Un available Clinic, [facility] Primary Care Provider Kevin Nelson MD Primary Care Provider Simon Gudino MD Unavailable Unavail able Ellen Govea PA-C Unavailable Unav ailable Franck Alfaro MD Unavailable Yang Neetu E FOOD SERVICE HOTEL RUNNER LOGGING TRACTOR OPERATOR SWAMP Unavailable Franck Alfaro MD Unavailable [phone] Yang Neetu E FOOD SERVICE HOTEL RUNNER LOGGING TRACTOR OPERATOR SWAMP Unavailable Encounter Details Date Type Department Care Team (Late st Contact Info) Description 06/27/2013 Office Visit-[facility] [address] [place] [address] Unknown, MD Josh Social History Tobacco Use Types Packs/Day Years Used Date Smoking Tobacco: Never Assessed Sex and Gender Information Value Date Recorded Sex Assigned at Not on file Gender Identity Not on file Sexual Orientation Not on file documented as of this encounter Progress Notes * Unknown, MD Josh - 06/30/2013 7:49 AM CDT Progress Note Created by: CONRADO Garcia DATE: 06/27/2013 [id number] PRATIK MADERA DATE OF : 1940 AGE: [age] years old Referring Physician: KEVIN NELSON Referring Clinic: [facility] CURRENT DIAGNOSES 1. - CAD, 414.00 2. - Hyperlipidemia, 272.4 3. - Hypertension, benign, 401.1 4. PTCA, V45.82 5. [place]-S/P Anterior, 412 6. - Angina Pectoris, 413.9 ALLERGIES atenolol atorvastatin Beta blockers, Marked fatigue Lisinopri I MEDICATIONS (prior to changes made today) 1. Aspirin 81 Mg Tablet, 1 p.o. daily 2. Centrum Silver Tablet, 1 p.o. daily 3. Imdur 60 mg tablet extended release 24 hr, 1/2 p.o. daily 4. losartan 50 mg tablet, 1 p.o. twice daily 5. Nitroglycerin 0.4 mg Tablet, Sublingual, PRN 6. Prilosec OTC 20 mg Tablet, Delayed Release (E.C.), 1 p.o. daily 7. Simvastatin 40 mg Tablet, 1 p.o. qHS CHIEF COMPLAINTS Followup of FU cad and med change HISTORY OF PRESENT ILLNESS Mr. Madera is a delightful 72-year-old gentleman who presents to the [facility] today for a follow-up visit. As you recall, he is followed in our office by Dr. Gudino, who has a past medical history of known coronary artery disease, hypertension and hyperlipidemia. Due to some recent shortness of breath earlier the year a stress echocardiogram was obtained. There were no significant findings at that time. He was placed on isosorbide mononitrate though and symptomatically he felt better, other than he was getting some intermittent light-headedness and dizziness. For this reason as his last visit I cut his isosorbide mononitrate down to 30 mg a day and since doing that he is feeling much better. His light-headedness and dizziness have resolved, his shortness of breath has also improved and he generally is feeling well and has no complaints today. All other review of systems, past medical [...] echo Nov 2007, stress echo Jul 2008, Feb 2013, echocardiogram Nov 2011 Cardiac Cath Results: 12/30 [...] and aortic insuff. 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 Known coronary artery disease, for which he had a recent stress echocardiogram because of some shortness of breath on exertion, which has since resolved with putting him on long acting nitrates. Stress echocardiogram did not indicate any evidence of ischemia, but there was some suboptimal views on that test as well. We are treating him medically and he is now completely asymptomatic and feeling well on medical therapy. Unfortunately he is intolerant to beta blockers. 2. Dyslipidemia, for which he is on statin therapy. 3. Hypertension, for which his blood pressure is under good control on his current medical regimen. At this point in time I am not going any further changes. I will have him return to see Dr. Gudino in one year's time. If he has any problems in the interim I would certainly be happy to see him sooner. TODAYS ORDERS 1. F/U with Simon Gudino MD 1 year CONRADO Garcia documented in this encounter Plan of Treatment Not on file documented as of this encounter Visit Diagnoses Not on filedocumented in this encounter Care Teams Machinery Erector Relationship Specialty Start Date End Date System, Provider Not In PCP - General Clinic 07/26/13 10/12/13 [facility], [facility] [address] [place] [address] PCP - General 10/13/13 04/16/14 Kevin Nelson MD [address] [place] [address] PCP - General 04/17/14 Simon Gudino MD Assigned Heart and Vascular Provider 12/16/19 05/08/20 Ellen Govea PA-C Assigned Heart and Vascular Provider 05/09/20 03/16/21 Franck Alfaro MD [address] [place] [address] Assigned Heart and Vascular Provider 03/17/21 12/27/21 Neetu Soria, FOOD SERVICE HOTEL RUNNER LOGGING TRACTOR OPERATOR SWAMP [address] [place] [address] Assigned Heart and Vascular Provider 12/28/21 04/18/22 Franck Alfaro MD [address] [place] [address] Assigned Heart and Vascular Provider 04/19/22 06/27/22 Neetu Soria, FOOD SERVICE HOTEL RUNNER LOGGING TRACTOR OPERATOR SWAMP [address] [place] [address] Assigned Heart and Vascular Provider 06/28/22 documented as of this encounter
--- OUTSIDE RECORDS SUMMARY | 2023-06-08 12:42 | XMS_ITS | Encounter Summary ---
Author Name Unknown Organization [place] Address [address] [facility] [place] [address] Care Team Providers Care Head Stock Operator Name Role Phone Kevin Nelson MD Primary Care Provider Franck Alfaro MD Unavailable [phone] Neetu Soria APRN SOCIAL INSURANCE ADVISER Unavailable Encounter Details Date Type Department Care Team (Late st Contact Info) Description 05/27/2022 External Order Results [facility] [address] [place] [address] Outside, Provider Social History Tobacco Use Types Packs/Day Years [...] on file documented as of this encounter Plan of Treatment Not on file documented as of this encounter Procedures Procedure Name Priority Date/Time Associated Diagnosis Comments BASIC METABOLIC PANEL Routine 05/27/2022 8:22 AM CDT documented in this encounter Results * (ABNORMAL) Basic metabolic panel (05/27/2022 8:22 [...] / Unknown 05/27/2022 8:22 AM CDT Narrative MICHAEL PFT - 05/29/2022 7:22 AM CDT Verified by Denver Cordoba on 05/29/2022. Kevin Nelson MD LAB - BLOOD ORDERABL ES MICHAEL PFT NON-INTERFACED (ONBASE SCANS) documented in this encounter Visit Diagnoses Not on filedocumented in this encounter Additional Health Concerns Assessment Noted Time PHQ-9 Depression Total Score: 10 023 12:46 PM RELEASE COORDINATOR documented as of this encounter Care Teams Head Stock Operator Relationship Specialty Start Date End Date Kevin Nelson MD [address] [place] [address] PCP - General 04/17/14 Franck Alfaro MD [address] [place] [address] Assigned Heart and Vascular Provider 04/19/22 06/27/22 Neetu Soria APRN [facility] [address] [place] [address] Assigned Heart and Vascular Provider 06/28/22 documented as of this encounter
--- OUTSIDE RECORDS SUMMARY | 2023-06-08 12:42 | XMS_ITS | Encounter Summary ---
Author Name Unknown Organization [place] Address [address] [facility] [place] [address] Care Team Providers Care Director Of Outpatient Services Name Role Phone System, Provider Not In Primary Care Provider Un available Clinic, [facility] Primary Care Provider Kevin Nelson MD Primary Care Provider Simon Gudino MD Unavailable Unavail able Ellen Govea PA-C Unavailable Unav ailable Franck Alfaro MD Unavailable [phone] Yang Neetu E CAR SEALER TRANSFORMER REPAIRER Unavailable Franck Alfaro MD Unavailable [phone] Yang Neetu E CAR SEALER TRANSFORMER REPAIRER Unavailable [phone] Encounter Details Date Type Department Care Team (Late st Contact Info) Description 07/25/2008 Office Visit-[facility] [address] [place] [phone] Simon Gudino MD Social History Tobacco Use Types Packs/Day Years Used Date Smoking Tobacco: Never Assessed Sex and Gender Information Value Date Recorded Sex Assigned at Not on file Gender Identity Not on file Sexual Orientation Not on file documented as of this encounter Progress Notes * Simon Gudino MD - 07/27/2008 2:42 PM CDT Progress Note Created by: Simon Gudino M.D. DATE: 07/25/2008 FOREST MADERA DATE OF : 1940 AGE: [age] years old Referring Physician: KRYSTLE LEROY [facility] CURRENT DIAGNOSES 1. - CAD, 414.00 2. PTCA, V45.82 3. [place]-S/P Anterior, 412 4. - Hyperlipidemia, 272.4 5. - Hypertension, benign, 401.1 ALLERGIES atenolol atorvastatin Beta blockers, Marked fatigue Lisinopri I MEDICATIONS (prior to changes made today) 1. Aspirin 81 mg, 1 p.o. q.d. 2. Clopidogrel 75 mg, 1 p.o. q.d. 3. Simvastatin 40 mg, 1 p.o. qHS 4. Nitroglycerin 0.4 mg, PRN 5. Cozaar 25 mg, 1 p.o. twice daily 6. Centrum Silver Therapeutic Multiple Vitamins with Minerals, 1 p.o. q.d. CHIEF COMPLAINTS Followup of - CAD HISTORY OF PRESENT ILLNESS I had the opportunity to see Mr. Madera today. This 67-year-old gentleman is seen in followup of hiscoronary disease. He is now approximately a little over 18 months from his non ST elevation anterior myocardial infarction and subsequent mid LAD stenting with a drug-eluting stent. He initially had problems afterwards with lots of fatigue but this resolved with stopping his beta-kye. His main complaint now is three months or more of exertional dyspnea when he walks up a hill. He walks regularly up to 3 miles, does not notice it with walking on level ground, but if he works too hard or walks uphill he gets it. This is different from the chest pain he had with his FL and it resolves with rest. He is having no resting shortness of breath, orthopnea, wheezing, cough, hemoptysis, or edema. He denies palpitations, syncope, myalgias or muscle weakness. He is having no claudication. In November,, he was having some complaints of chest pressure with walking which he states is different from this. A stress echo at that time was normal with both a stress EKG and a stress echo with a normal ejection fraction and no wall motion abnormalities. As noted above, he states his current symptoms are different from those symptoms of eight months ago. Lipids from last November were at goal when reviewed from Dr. Leroy's office. Blood pressure was controlled at 125/74. His cardiopulmonary examination is notable only for a grade 2/6 systolic ejectionmurmur at the right upper sternal border. He had no significant valvular disease on an echo a little over one year ago. PAST HISTORY Past Medical Illnesses: hyperlipidemia, hypertension Past Cardiac Illnesses: coronary artery disease, S/P myocardial infarction, (non-st) Cardiology Procedures-Invasive: cardiac cath (left) December 2006 Cardiology Procedures-Noninvasive: echocardiogram Mar 2007, stress echo Nov 2007 Cardiac Cath Results: 12/2006 CAD with lesion [...] MR and aortic insuff. Trace to mild TR. 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 Weight- 215.10 lbs. Height- 67.00 Temperature- .00 CONSTITUTIONAL cooperative, [...] S3 or S4, Apical impulse not displaced, 2/6 JOSE L RUSB, gallops or rubs detected. ABDOMEN abdomen soft, bowel sounds normoactive, no masses, no hepatosplenomegaly, non- tender, no bruits PERIPHERAL PULSES pulses full and equal in all extremities, no bruits auscultated. EXTREMITIES & BACK no clubbing, cyanosis or edema NEUROLOGICAL no gross motor deficits noted, affect appropriate, oriented to time, person and place. MEDICATIONS UPDATED/STARTED TODAY: Cozaar 25 mg, 1 p.o. twice daily MEDICATIONS REFILLED/STOPPED TODAY: Cozaar 50 mg 1 p.o. q.d. DIRECTED Substitution, Metoprolol ER 25 mg 1 p.o. q.d. DIRECTED Dosage Decreased and Metoprolol ER 25 mg 1/2 tab qHS #30 Treatment Completed IMPRESSION/PLAN: 1. Coronary artery disease, status post anterior myocardial infarction with normalization of globalejection fraction and minimal if any residual wall motion abnormality following LAD stenting. He iscurrently without heart failure or arrhythmia symptoms. 2. Dyspnea on exertion, different from prior ischemic symptoms but consistent with an anginal equivalent. It has been in a stable pattern for at least three months. I discussed further empiric therapy versus a stress study and recommended pursuing a stress study at this time which is what he wants to do. We will get a stress echo with further recommendations following this. I also recommended he try pretreating with sublingual nitroglycerin before some of his walks to see if this makes any difference as this may guide further treatment. 3. Dyslipidemia, at goal on current regimen when last treated. 4. Beta-kye intolerance due to fatigue. 5. Hypertension, controlled. 6. I will have him continue his current medications pending the results of his stress study. Thank you for having me involved in this gentleman's care. Please let me know if you have any questions. TODAYS ORDERS 1. Treadmill Stress Echo 2 days- first available 2. F/U with Simon Gudino MD 1 year Simon Gudino M.D. documented in this encounter Plan of Treatment Not on file documented as of this encounter Visit Diagnoses Not on filedocumented in this encounter Care Teams Director Of Outpatient Services Relationship Specialty Start Date End Date System, Provider Not In PCP - General Clinic 07/26/13 10/12/13 [facility], [facility] [address] [place] [address] PCP - General 10/13/13 04/16/14 Kevin Nelson MD [address] [place] [address] PCP - General 04/17/14 Simon Gudino MD Assigned Heart and Vascular Provider 12/16/19 05/08/20 Ellen Govea PA-C Assigned Heart and Vascular Provider 05/09/20 03/16/21 Franck Alfaro MD [address] [place] [address] Assigned Heart and Vascular Provider 03/17/21 12/27/21 Neetu Soria, JENNA TRANSFORMER REPAIRER [address] [place] [address] Assigned Heart and Vascular Provider 12/28/21 04/18/22 Franck Alfaro MD [address] [place] [address] Assigned Heart and Vascular Provider 04/19/22 06/27/22 Neetu Soria, JENNA TRANSFORMER REPAIRER [address] [place] [address] Assigned Heart and Vascular Provider 06/28/22 documented as of this encounter
--- OUTSIDE RECORDS SUMMARY | 2023-06-08 12:42 | XMS_ITS | Clinical Summary ---
Author Name Unknown Organization [facility] Address [place], [place] [address] Care Team Providers Care Photography Sales Associate Name Role Phone Sebastian Rene Unavailable [phone] Iris Manzano Unavailable Unavailable Kevin Nelson MD Primary Care Provider [phone] Allergies Active Allergy Reactions Criticality Noted Date Comments Atenolol Bradycardia 12/08/2006 & Fatigue Atorvastatin Myalgia 12/08/2006 Lisinopril Cough 12/08/2006 Metoprolol *Unknown 12/30/2013 headaches Medications Medication Sig Dispensed Refills Start Date End Date Status omeprazole (PRILOSEC) 20 mg capsule Take 1 capsule by mouth once daily before a meal. 0 04/21/2011 Active cyanocobalamin (VITAMIN B-12) 1,000 mcg tabletIndications: B12 deficiency Take 1 tablet by mouth once daily. 90 tablet 3 09/19/2018 Active TRUE METRIX GLUCOSE TEST STRIP stripIndications:N ewly diagnosed diabetes (HC) TEST TWICE DAILY 200 Each 3 04/14/2020 Active albuterol HFA (PRO-AIR; VENTOLIN; PROVENTIL) 90 mcg/actuation inhalerIndications :MONCADA (dyspnea on exertion) Inhale 1-2 Puffs by mouth every 4 hours if needed for Shortness of Breath 1st choice. 3 Each 3 06/05/2021 Active nitroglycerin (NITROSTAT) 0.4 mg sublingual tabletIndications: Coronary artery disease, unspecified vessel or lesion type, unspecified whether angina present, unspecified whether [place] or transplanted heart DISSOLVE 1 TABLET UNDER TONGUE EVERY 5 MINUTES IF NEEDED FOR CHEST PAIN 25 Tablet 2 02/11/2022 Active Catheter (Self-Cath) 14-16 Fr- miscIndications:At onic bladder Self cath as needed up to 4 times per day 360 Each 3 06/02/2022 Active clopidogreL (PLAVIX) 75 mg tabletIndications: Coronary artery disease, unspecified vessel or lesion type, unspecified whether angina present, unspecified whether [place] or transplanted heart Take 1 Tablet (75 mg) by mouth once daily. 90 Tablet 3 11/18/2022 Active furosemide (LASIX) 40 mg tabletIndications: Edema of both legs Take 1 Tablet (40 mg) by mouth every morning. 90 Tablet 3 11/18/2022 Active glipiZIDE (GLUCOTROL) 5 mg tabletIndications: Type 2 diabetes mellitus with diabetic polyneuropathy, without long-term current use of insulin (HC) Take 1 Tablet (5 mg) by mouth two times daily before meals. 180 Tablet 11/18/2022 Active isosorbide mononitrate (IMDUR) 30 mg extended release tablet 24 HourIndications:Co ronary artery disease, unspecified vessel or lesion type, unspecified whether angina present, unspecified whether [place] or transplanted heart Take 1 Tablet (30 mg) by mouth once daily. 90 Tablet 11/18/2022 Active losartan (COZAAR) 50 mg tabletIndications: Essential hypertension Take 1 Tablet (50 mg) by mouth once daily. 90 Tablet 11/18/2022 Active metFORMIN (GLUCOPHAGE) 1,000 mg tabletIndications: Type 2 diabetes mellitus with diabetic polyneuropathy, without long-term current use of insulin (HC) Take 1 Tablet (1,000 mg) by mouth two times daily with meals. 180 Tablet 11/18/2022 Active ranolazine (RANEXA) 500 mg Controlled-Release tabletIndications: Coronary artery disease, unspecified vessel or lesion type, unspecified whether angina present, unspecified whether [place] or transplanted heart Take 1 Tablet (500 mg) by mouth two times daily. 180 Tablet 11/18/2022 Active rosuvastatin (CRESTOR) 20 mg tabletIndications: Coronary artery disease, unspecified vessel or lesion type, unspecified whether angina present, unspecified whether [place] or transplanted heart Take 1 Tablet (20 mg) by mouth once daily with evening meal. 90 Tablet 11/18/2022 Active SITagliptin phosphate (JANUVIA) 100 mg tabletIndications: Type 2 diabetes mellitus with diabetic polyneuropathy, without long-term current use of insulin (HC) Take 1 Tablet (100 mg) by mouth once daily. 90 Tablet 3 05/28/2023 Active ferrous sulfate, 65 mg elemental, tabletIndications: Iron deficiency anemia, unspecified iron deficiency anemia type Take 1 Tablet (325 mg) by mouth once daily with a meal. 90 Tablet 3 11/18/2022 Discontinue d(*Med complete/Re gimen complete/Le sherrell of care change) Active Problems Problem Noted Date Diagnosed Date Skin cancer 03/28/2022 Overview: 02/11/2022:left shoulder BCC nodular and infiltrative types, Excised 04/24/2022 03/25/22: left medial upper back, nBCC: ED&C scheduled 04/08/22 with CONRADO Guillen 03/25/22: right worship, nBCC, Mohs done 04/25/[address] 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 Uses spiriva and combivent with some improvement. Not COPD per pulmonology. Benign prostatic hyperplasia 05/16/2015 Type 2 diabetes mellitus wit h diabetic polyneuropathy, without long-term current use of insulin 11/01/2014 Overview: Started metformin 08/2014 Atonic bladder 12/30/2013 Overview: Self catheterizes 3-4 times daily Unspecified hereditary and idiopathic peripheral neuropathy 03/10/2011 Overview: Has seen Neuro - tried Neurontin, but didn't work Colon polyp 02/13/2011 Overview: Colonoscopy 01/2011 polyps repeat in 3 years Colonoscopy 05/2013 polyps repeat in 3 years Colonoscopy 02/2016 multiple polyps repeat in 3 years ACP (advance care planning) 01/02/2011 Overview: Patient has identified Health Care Agent(s): Yes Add Health Care Agents: Yes Health Care Agent(s): Primary Health Care Agent: Yamilex Madera Relationship: [phone] Cell Secondary Health Care Agent: Amanda Del Rio Relationship: daughter [phone] work Patient has Advance Care Plan Documents (Health Care Directive, POLST): Yes Advance Care Plan Documents: Health Care Directive Patient has identified Specific Treatment Preferences: Yes Specific Treatment Preferences: a.) Code Status: CPR/Attempt Resuscitation b.) Goals of Treatment: Comfort Care. If I reach a point where I am no longer able to make decisions for myself and it is reasonably certain I will not recover my ability to know who I am, then I want comfort care only. Do not intubate but use medication, oxygen, oral suction, and manual clearing of airways, etc. as needed for immediate comfort. CAD (coronary artery disease) 12/24/2009 Overview: Sees Ellen Govea at [place]. Has had 6 stents placed in the past. Diverticulosis of colon (without mention of hemo rrhage) 02/02/2007 Unspecified essential hypertension 12/08/2006 Mixed hyperlipidemia 12/08/2006 Resolved Problems Problem Noted Date Diagnosed Date Resolved Date Chronic obstructive pulmonar y disease, unspecified COPD type 02/11/2022 02/11/2022 Memory loss 08/23/2012 06/02/2016 Overview: Progressive over past 6 months: trouble recalling what he needs at the store; has not gotten lost. Emphysema 09/08/2011 06/02/2016 Routine General Medical Exam ination at a Health Care Facility 12/08/2006 09/02/2011 Overview: flexible sigmoidoscopy 01/11/2002 colonoscopy 01/2008 recheck 3 yrs Special screening for malign ant neoplasm of prostate 12/08/2006 06/02/2016 pulmonary nodules 10/26/2006 06/02/2016 Overview: CT Chest 04/21/2007: No Change & Recheck CT 1 yr Encounters Date Type Department Care Team Description 06/01/2023 Orders Only [facility] Scanner 1 scan: (1-Ord) [facility], XR LUMBAR SPINE MIN 4V, 06/01/2023 05/28/2023 9:25 AM CDT Office Visit [facility] [address] [place] [address] Kevin Nelson MD Diabetes 05/28/2023 Travel 04/15/2023 Orders Only [facility] Scanner 1 scan: (1-Ord) INCOMING RECORDS-DIABETIC EYE, [facility], 04/15/2023 04/01/2023 9:30 AM GROUP WORK PROGRAM DIRECTOR Office Visit [facility] [address] [place] [address] Luis Merino MD CV Vascular Est (1 year follow up; lower extremity PAD. U/S scheduled prior. SD 03/31/2023//PCP : Kevin Nelson MD/) 04/01/2023 8:13 AM GROUP WORK PROGRAM DIRECTOR - 04/01/2023 11:59 PM GROUP WORK PROGRAM DIRECTOR Hospital Encounter [facility] [address] [place] [address] Luis Merino MD Moore, Brian H PAD (peripheral artery disease) (HC) 04/01/2023 Travel from Last 3 Months Immunizations Name Administration Dates Next Due Amb Influenza, Inact (High-d ose) (Flu Clinic Only) 01/17/2015 COVID-19 vaccine (Joturl NTech 30mcg/0.3mL) MOISES SULLIVAN 12/13/2020,04/21/2020,03/31/2020 Influenza RIV4 (Age 18+ Year s) PRESERV FREE 11/24/2018 Influenza, High-dose Inactivated 12/05/2015,10/25 Influenza, High-dose Quadriv alent Inactivated 11/17/2022,11/19/2021,11/13/2020 Influenza, IIV3 (Age 6-35 mos) 01/02/2011 Influenza, IIV3 (Age >=3 years) 01/18/20 15,12/27/2012,12/22/2011,01/02,12/24/2009,12/11/2008,12/08/2007 ,12/04/2006,12/24/2005 Influenza, Inactivated AIIV4 (Age 65+ Years) Preserv Free 12/06/2019 Influenza, Inactivated IIV3 (Age 65+ Years) Preserv Free 12/10/2017,12/22/2016 Pneumococcal Poly,23-Valent (Pneumovax) 11/01/2003 Pneumococcal conj 13-Valent (Prevnar 13) 04/27/2015 TD, UNSPECIFIED 08/18/2011 Td (Age >=7 Years) 11/06/2005 Td, Preservative Free (age > = 7 Years) 11/06/2005 Tdap 11/17/2022,08/18/2011 Tuberculin (PPD) 12/29/2006 12/31/2006 Zoster (Shingrix-RZV, recombinant) 01/27/2019, Zoster (Zostavax-ZVL, live) 12/08/2006 Family History Medical History Relation Name Comments Heart Disease Brother 1 Ricardo [place] @ 54 yo; 2 more stents recently 03/2012 Diabetes Brother 3 Heart Disease Father Hans Hypertension Father Hans Stroke Father Hans Other Mother Denesal COPD Heart Disease Sister 1 Feb [place] Anesthesia Problem No Family History Blood Disease No Family History Relation Name Status Comments Brother 1 Ricardo Alive Brother 2 Bill Alive Brother 3 Father Hans (Age 72) [place] Mother Denesal (Age 89) Sister 1 Riaz Alive Sister 2 Edie Alive Sister 3 Katelynn Alive Sister 4 Yolande Alive Social History Tobacco Use Types Packs/Day Years Used Date Smoking Tobacco: Former Cigarettes 1 20 0 [birth year]/23/1951 - 02/23/1971 Smokeless Tobacco: Never Tobacco Cessation:Counseling Given: Yes Alcohol Use Standard Drinks/Week Comments Not Currently 0 (1 standard drink = 0.6 oz pur e alcohol) 1 beer/day PHQ-2 Answer Date Recorded PHQ-2 TOTAL SCORE 0 02/26/2023 Social Connections Answer Date Recorded Frequency of Communication with Friends and Fami ly 0 11/18/2022 Financial Resource Strain Answer Date R ecorded Difficulty of Paying Living Expenses 3 11/18/2022 Difficulty of Paying Living Expenses Not on file 11/18/2022 Food Insecurity Answer Date Recorded Worried About Running Out of Food in the Last Ye ar 1 11/18/2022 Transportation Needs Answer Date Record ed Lack of Transportation (Medical) 1 11/18/2022 Housing Stability Answer Date Recorded Unable to Pay for Housing in the Last Year 1 11/18/2022 Sex and Gender Information Value Date Recorded Sex Assigned at Not on file Gender Identity Not on file Sexual Orientation Not on file Obstetrics History Last Filed Vital Signs Vital Sign Reading Time Taken Comments Blood Pressure 131/78 05/28/2023 9:28 AM CDT Pulse 75 05/28/2023 9:28 AM CDT Temperature 36.6 ??C (97.9 ??F) 09/02/2021 6:00 PM CD T Respiratory Rate 16 04/02/2022 1:37 PM GROUP WORK PROGRAM DIRECTOR Oxygen Saturation 99% 05/28/2023 9:28 AM CDT Inhaled Oxygen Concentration - - Weight 92.8 kg (204 lb 9.6 oz) 05/28/2023 9:28 A M CDT Height 181 cm (5' 11.26) 02/26/2023 9:27 AM GROUP WORK PROGRAM DIRECTOR Body Mass Index 28.33 02/26/2023 9:27 AM GROUP WORK PROGRAM DIRECTOR Plan of Treatment Upcoming Encounters Date Type Department Care Team (Late st Contact Info) Description 08/31/2023 7:25 AM CDT Office Visit [facility] [address] [place] [address] Kevin Nelson MD [address] [place] [address] Health Maintenance Due Date Last Done Comments COVID-19 vaccine series ( season) 2022 12/13/2020, 04/21/2020, 03/31/2020 Influenza for age 65+ 10/25/2023 11/17/2022 , 11/19/2021, 11/13/2020, Additional history exists BMI (ht and wt on same day) for age 18+ 02/27/2024 02/26/2023, 11/12/2021, 10/23/2021, Additional history exists Depression screening for age 12+ 02/27/2024 02/26/2023, 11/18/2022, 11/13/2021, Additional history exists Medicare Wellness for age 65+ 02/27/2024, 11/12/2021, 08/28/2020, Additional history exists Tetanus booster 11/17/2032 11/17/2022, 07/25, 08/18/2011, Additional history exists Pneumococcal series for age 65+ Completed 6, 11/01/2003 Zoster (shingles) series for age 50+ Completed 01/27/2019, 11/24/2018, 12/08/2006 Tdap Completed 11/17/2022, 08/18/2011 Goals Goal Patient Goal Type Associated Problems Recent Progress Patient-Stated? Author DIET - Patient understands and will follow prescribed diet-diabetic Diet Yes Tiffanie Rondon, PEER EDUCATOR - Patient checks glucose as directed and logs in log book Diet Yes Tiffanie Rondon, PEER EDUCATOR - HgbA1C goal less than 7 Result Component No Tiffanie Rondon RN Procedures Procedure Name Priority Date/Time Associated Diagnosis Comments SCAN-RADIOLOGY REPORT 06/01/2023 12:00 AM CDT URINE ALBUMIN TO CREATININE RATIO, RANDOM Routine 05/28/2023 10:50 AM CDT Type 2 diabetes mellitus with diabetic polyneuropathy, without long-term current use of insulin (HC) HEMOGLOBIN Add On 05/28/2023 9:19 AM CDT History of iron deficiency HEMOGLOBIN A1C Routine 05/28/2023 9:19 AM CDT Type 2 diabetes mellitus with diabetic polyneuropathy, without long-term current use of insulin (HC) SCAN-EYE EXAM 04/15/2023 12:00 AM GROUP WORK PROGRAM DIRECTOR US ARTERIAL LOWER EXTREMITY W ELOINA RIGHT Routine 04/01/2023 8:51 AM GROUP WORK PROGRAM DIRECTOR PAD (peripheral artery disease) (HC) from Last 3 Months Results * SCAN-RADIOLOGY REPORT (06/01/2023 12:00 AM CDT) Anatomical Region Laterality Modality Other Scanner OTHER * (ABNORMAL) URINE ALBUMIN TO CREATININE RATIO, RANDOM (05/28/2023 10:50 AM CDT) ALB RAND URINE 29.3 mg/L 05/28/2023 11:53 PM CDT [facility] CREATININE,URIN E 0.62 g/L 05/28/2023 11:53 PM CDT [facility] ALBUMIN TO CREATININE RATIO,RAND UR 47.3(H) <30.0 mg/g creat 05/28/2023 11:53 PM CDT [facility] Urine URINE SPECIMEN / Unknown Non-Blood / Unknown 05/28/2023 10:50 AM CDT 05/28/2023 11:22 AM CDT Narrative [facility] - 05/28/2023 11:53 PM CDT If Albumin to Creatinine Ratio is elevated, consider the following: ? Elevations seen with incipient nephropathy associated ?? with diabetes mellitus or hypertension. Stress, exercise,hematuria, ?? and urinary tract infection may also produce elevated results. If clinically indicated, confirm with ?24 Hour Albumin to Creatinine Ratio. ?? Kevin Nelson MD URINE [facility] [address] [place] [address], * HEMOGLOBIN (05/28/2023 9:19 AM CDT) HEMOGLOBIN 14.1 13.5 - 17.5 g/dL 05/28/2023 9:43 AM CDT [facility] MCV 90 80 - 100 fL 05/28/2023 9:43 AM CDT [facility] Blood BLOOD SPECIMEN / Unknown Venipuncture / Unknown 05/28/2023 9:19 AM CDT 05/28/2023 9:21 AM CDT Kevin Nelson MD HEMATOLOGY Performing Organization Address [facility] de Phone Number [facility] [address] [place] [address], * (ABNORMAL) HEMOGLOBIN A1C MONITORING (POCT) (05/28/2023 9:19 AM CDT) HEMOGLOBIN A1C MONITORING (POCT) 8.8(H) <=6.4 % 05/28/2023 9:29 AM CDT [facility] Blood BLOOD SPECIMEN / Unknown Venipuncture / Unknown 05/28/2023 9:19 AM CDT 05/28/2023 9:21 AM CDT Narrative [facility] - 05/28/2023 9:29 AM CDT ? (<=6.9%) ? Indicates good control ? (7.0% to 7.9%) ? Indicates fair control ? (>=8.0%) ? Indicates poor control ?? NOTE: ??These thresholds are guidelines and ?individual targets may vary. Falsely low levels may be seen with: Recent Transfusion, Recent Significant Blood Loss, Hemolytic Diseases, or Falsely elevated levels may be seen with: Untreated Anemias, Splenectomy ? Kevin Nelson MD CHEMISTRY Performing Organization Address [facility] Co de Phone Number [facility] [address] [place] [address], [place] [phone] * SCAN-EYE EXAM (04/15/2023 12:00 AM GROUP WORK PROGRAM DIRECTOR) Scanner OTHER * US ARTERIAL LOWER EXTREMITY W ELOINA RIGHT (04/01/2023 8:51 AM GROUP WORK PROGRAM DIRECTOR) Anatomical Region Laterality Modality LEG R Ultrasound 04/01/2023 8:31 AM GROUP WORK PROGRAM DIRECTOR Narrative 04/01/2023 3:31 PM GROUP WORK PROGRAM DIRECTOR VASCULAR ULTRASOUND REPORT [facility] Accession#: ?? [id number] : ?[id number] ?? Study Date: ?? 04/01/2023 8:31:49 AM Age: ?82 years ?? Tech: ? BHM Gender: M ?Referring MD: LUIS MERINO Site: [facility] Study performed: ?Lower extremity resting ELOINA, TBI, (bilateral), duplex US, ?(right). Indication for study: LE pain/numbness Study Quality: ?Good TECHNIQUE: Lower/upper extremity arteries were examined per exam protocol by duplex ultrasound, color-flow and spectral Doppler. Peak systolic velocities (PSV), Doppler waveform quality, velocity ratios and vessel size in cm, were documented at protocol specific sites. Physiologic data including segmental pressures, ankle/brachial index (ELOINA), digit PPG recordings, laser Doppler flowmetry, transcutaneous oximetry, and digit temperatures were documented at sites per exam protocol and test requirements. IMPRESSION: 1. Resting ankle-brachial index is falsely elevated on the right at 1.53 and is normal on the left at 1.34. 2. Pulse volume recordings are essentially normal at ankle level bilaterally. 3. Toe-brachial index is moderately reduced on the right at 0.48 and toe- brachial index is mildly reduced on the left at 0.66. 4. Duplex imaging of the right lower extremity shows multiphasic inflow. The femoral to popliteal artery segment is patent with multiphasic waveforms and no stenosis. The posterior tibial artery and dorsalis pedis artery are patent with multiphasic waveforms. COMPARISON: Compared to prior study 04/02/2022, there is no significant change. FINDINGS: Right toe/brachial index indicates moderate range. Left toe/brachial index indicates mild range. +--------+ + + RIGHT ?? Velocity cm/s Phasicity ?? +--------+ + + GUIDE PLANT PRX ? 112 ? multiphasic +--------+ + + GUIDE PLANT DST ? 100 ? multiphasic +--------+ + + PFA ? 115 ? multiphasic +--------+ + + SFA PRX ? 87 ? multiphasic +--------+ + + SFA MID ? 143 ? multiphasic +--------+ + + SFA DST ? 103 ? multiphasic +--------+ + + TONYA PRX ? 139 ? multiphasic +--------+ + + TONYA DST ? 88 ? multiphasic +--------+ + + GLASS GLAZIER DST ? 57 ? multiphasic +--------+ + + DPA ? 107 ? multiphasic +--------+ + + Criteria: Stenosis ?V. Ratio Mild ?<50% ?<2.0 Moderate ?? 50-74% ?> or = 2.0 Severe ? 75-99% ?> or = 4.0 Occluded ?100% ?? no detectable flow Pressures +-----+ +--------+ +-----+ ? RIGHT (mmHg) ? LEFT (mmHg) ? +-----+ +--------+ +-----+ Index ?145 ? Brachial ?140 ? Index +-----+ +--------+ +-----+ 1.53 ?222 ?GLASS GLAZIER ?195 ? 1.34 +-----+ +--------+ +-----+ 1.24 ?180 ?DPA ?164 ? 1.13 +-----+ +--------+ +-----+ 0.48 ? 69 ? Digit 1 ?95 ? 0.66 +-----+ +--------+ +-----+ Janet Ward MD. Electronically signed on 04/01/2023 3:31:37 PM This study was performed and interpreted by a service accredited by the Intersocietal Accreditation Commission (IAC/Vascular), [email or web address].org/vascular Report generated by [facility]. ??Final ?? Procedure Note Janet Wrad MD - 04/01/2023 VASCULAR ULTRASOUND REPORT [facility] M[facility]A : 1940 Study Date: 04/01/2023 8:31:49 AM Age: 82 years Tech: [facility] Gender: M Referring MD: LUIS MERINO Site: [facility] Study performed: Lower extremity resting ELOINA, TBI, (bilateral),duplex US, (right). Indication for study: LE pain/numbness Study Quality: Good TECHNIQUE: Lower/upper extremity arteries were examined per exam protocol by duplexultrasound, color-flow and spectral Doppler. Peak systolic velocities(PSV), Doppler waveform quality, velocity ratios and vessel size in cm,were documented at protocol specific sites. Physiologic data includingsegmental pressures, ankle/brachial index (ELOINA), digit PPG recordings,laser Doppler flowmetry, transcutaneous oximetry, and digit temperatureswere documented at sites per exam protocol and test requirements. IMPRESSION: 1. Resting ankle-brachial index is falsely elevated on the right at 1.53and is normal on the left at 1.34. 2. Pulse volume recordings are essentially normal at ankle levelbilaterally. 3. Toe-brachial index is moderately reduced on the right at 0.48 andtoe-brachial index is mildly reduced on the left at 0.66. 4. Duplex imaging of the right lower extremity shows multiphasic inflow.The femoral to popliteal artery segment is patent with multiphasicwaveforms and no stenosis. The posterior tibial artery and dorsalis pedisartery are patent with multiphasic waveforms. COMPARISON: Compared to prior study 04/02/2022, there is no significant change. FINDINGS: Right toe/brachial index indicates moderate range. Left toe/brachial index indicates mild range. +--------+ + + RIGHT Velocity cm/s Phasicity +--------+ + + GUIDE PLANT PRX 112 multiphasic +--------+ + + GUIDE PLANT DST 100 multiphasic +--------+ + + PFA 115 multiphasic +--------+ + + SFA PRX 87 multiphasic +--------+ + + SFA MID 143 multiphasic +--------+ + + SFA DST 103 multiphasic +--------+ + + TONYA PRX 139 multiphasic +--------+ + + TONYA DST 88 multiphasic +--------+ + + GLASS GLAZIER DST 57 multiphasic +--------+ + + DPA 107 multiphasic +--------+ + + Criteria: Stenosis V. Ratio Mild <50% <2.0 Moderate 50-74% > or = 2.0 Severe 75-99% > or = 4.0 Occluded 100% no detectable flow Pressures +-----+ +--------+ +-----+ RIGHT (mmHg) LEFT (mmHg) +-----+ +--------+ +-----+ Index 145 Brachial 140 Index +-----+ +--------+ +-----+ 1.53 222 GLASS GLAZIER 195 1.34 +-----+ +--------+ +-----+ 1.24 180 DPA 164 1.13 +-----+ +--------+ +-----+ 0.48 69 Digit 1 95 0.66 +-----+ +--------+ +-----+ Janet Ward MD. Electronically signed on 04/01/2023 3:31:37 PM This study was performed and interpreted by a service accredited by theIntersocietal Accreditation Commission (IAC/Vascular),[email or web address]/vascular Report generated by [facility]. Final Luis Merino MD US from Last 3 Months Advance Directives Documents on File Type Date Recorded Patient Combustion Engineer [facility] Healthcare Directive 2018 9:53 AM [facility] DIRECTIVE, [facility] Healthcare Directive 06/18/2011 11:13 AM Care Teams Photography Sales Associate Relationship Specialty Start Date End Date Kevin Nelson MD [address] [place] [address] PCP - General Family Practice 01/03/13 Sebastian Rene [address] [place] [address] Administrative Assistant Coordinator 04/19/12 Iris Manzano [address] [place] [id number] Neurology 04/19/12
--- OUTSIDE RECORDS SUMMARY | 2023-06-08 12:42 | XMS_ITS | Encounter Summary ---
Author Name Unknown Organization [place] Address [address] [place] [address] Care Team Providers Care Electrical Engineer Name Role Phone System, Provider Not In Primary Care Provider Un available Clinic, [facility] Primary Care Provider Amari eNlson MD Primary Care Provider Simon Gudino MD Unavailable Unavail able Ellen Govea PA-C Unavailable Unav ailable Franck Alfaro MD Unavailable Yang Neetu E FLIGHT AGENT BOAT CARPENTER Unavailable Franck Alfaro MD Unavailable [phone] Yang Neetu E FLIGHT AGENT BOAT CARPENTER Unavailable Encounter Details Date Type Department Care Team (Late st Contact Info) Description 04/25/2013 Office Visit-[facility] [address] [place] [address] Unknown, MD Josh Social History Tobacco Use Types Packs/Day Years Used Date Smoking Tobacco: Never Assessed Sex and Gender Information Value Date Recorded Sex Assigned at Not on file Gender Identity Not on file Sexual Orientation Not on file documented as of this encounter Progress Notes * Unknown, MD Josh - 04/26/2013 11:33 AM CST Progress Note Created by: Ellen Alejandre PA-C DATE: 04/25/2013 552241 FOREST MADERA DATE OF : 1940 AGE: [age] years old Referring Physician: AMARI NELSON Referring Clinic: [facility] CURRENT DIAGNOSES 1. - CAD, 414.00 2. - Hyperlipidemia, 272.4 3. - Hypertension, benign, 401.1 4. PTCA, V45.82 5. HI-S/P Anterior, 412 6. - Angina Pectoris, 413.9 [...] 1 p.o. qHS CHIEF COMPLAINTS Followup of stress echo and medication change HISTORY OF PRESENT ILLNESS Mr. Madera is a delightful 72-year-old gentleman who presents to the [facility] today for a follow-up visit regarding his recent stress echocardiogram. As you recall, he is followed in our office by Dr. Gudino with a past medical history of known coronary artery disease and had a uau-TF-uzrhovglt HI treated with LAD stenting approximately six years ago. He was recently seen because he was experiencing some shortness of breath, mainly going up flights of stairs. He states he is able to walk flat surfaces without difficulty. He denies any chest pain, chest tightness or pressure. He underwent a stress echocardiogram for further evaluation of his change in his shortness of breath, which showed suboptimal images in the parasternal views. However, theapical views showed no regional wall motion abnormalities. His ejection fraction increases appropriately post-exercise and there was no inducible ischemia that was seen. EKG was also negative for ischemia. Ejection fraction was normal. These results were reviewed with him today. He was placed on isosorbide mononitrate 60 mg daily at his last visit to see if this would help himsymptomatically. He does not feel that it has made much difference. He has noticed that he has had some intermittent lightheadedness and dizziness, which may be related to the medication. He continues to remain active, exercising on the treadmill, which he is able to do without any difficulty. He mainly notes that when he works occasionally on Thursday nights at his [employer] center, that he does have to go from the prep room down in the basement, up a flight of stairs and he does notice shortness of breath at that time. All other review of systems, past medical history and physical examination findings are noted below. 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 EYES wears eye glasses/contact lenses, cataracts EARS, NOSE, THROAT, MOUTH denies any hearing loss, epistaxis, hoarseness or difficulty speaking. RESPIRATORY dyspnea with exertion, stairs, denies cough or wheeze CARDIOVASCULAR occasional lightheaded or dizziness with position changes since starting the imdur, denies chest pain, palpitations, YUMI or abdominal bloating ABDOMINAL positive for history of GERD GENITOURINARY-MALE no concerns MUSCULOSKELETAL pain in both feet, occas. muscle cramps NEUROLOGICAL denies any history of recurrent headaches, strokes, TIA, or seizure disorder. PSYCHIATRIC denies any history of depression, substance abuse or change in cognitive functions. ENDOCRINE non-insulin dependent diabetes mellitus HEMATOLOGICAL/IMMUNOLOGIC medication allergies VASCULAR Numbness in toes PHYSICAL EXAMINATION VITAL SIGNS: Blood Pressure: 132/68Sitting, Right arm, regular cuff Pulse- 60.00/min. Weight- 216.40 lbs. Height- 67 BMI Measurement: 34 CONSTITUTIONAL [...] time, person and place. MEDICATIONS UPDATED/STARTED TODAY: Imdur 60 mg tablet extended release 24 hr, 1/2 p.o. daily, #15 (Fifteen) MEDICATIONS REFILLED/STOPPED TODAY: Imdur 60 mg tablet extended release 24 hr 1 p.o. daily #30 (Thirty) Refill IMPRESSIONS/PLAN 1. Shortness of breath with exertion. This does seem to be related to going up flights of stairs melvi is able to walk on the treadmill without difficulty. His stress echocardiogram did not indicate any evidence of ischemia, but once again, there was some suboptimal views on that test. At this point in time, I am going to cut his isosorbide mononitrate down to 1/2 tablet per day at 30 mg per day a nd see how he does with that because he is noticing some lightheadedness and dizziness. We also want to make sure that we keep his blood pressure adequately controlled. Unfortunately, he is intolerant to beta-blockers. 2. Dyslipidemia. He is at goal on his statin therapy. 3. Hypertension. Today, his blood pressure is improved on the isosorbide mononitrate. He does note that he is having a little bit of lightheadedness, which may be orthostatic hypotension. We are cutting that dose back as above. I will have him return for a recheck to see how he is doing in two months. Hopefully, at that time it will be nicer outside and he will be able to get back doing even more of his regular routine exercise that he normally does. Thank you for allowing us to be involved in his care. TODAYS ORDERS 1. Return Visit 2 months CONRADO Garcia documented in this encounter Plan of Treatment Not on file documented as of this encounter Visit Diagnoses Not on filedocumented in this encounter Care Teams Electrical Engineer Relationship Specialty Start Date End Date System, Provider Not In PCP - General Clinic 07/26/13 10/12/[address] [address] PCP - General 10/13/13 04/16/14 Amari Nelson MD [address] [place] [address] PCP - General 04/17/14 Simon Gudino MD Assigned Heart and Vascular Provider 12/16/19 05/08/20 Ellen Govea PA-C Assigned Heart and Vascular Provider 05/09/20 03/16/21 Franck Alfaro MD [address] [place] [address] Assigned Heart and Vascular Provider 03/17/21 12/27/21 Neetu Soria, JENNA BOAT CARPENTER [address] [place] [address] Assigned Heart and Vascular Provider 12/28/21 04/18/22 Franck Alfaro MD [address] [place] [address] Assigned Heart and Vascular Provider 04/19/22 06/27/22 Neetu Soria, FLIGHT AGENT BOAT CARPENTER [address] [place] [address] Assigned Heart and Vascular Provider 06/28/22 documented as of this encounter
--- OUTSIDE RECORDS SUMMARY | 2023-06-08 12:42 | XMS_ITS | Encounter Summary ---
Author Name Unknown Organization [place] Address [address] [facility] [place] [address] Care Team Providers Care Gluing Machine Operator Name Role Phone Kevin Nelson MD Primary Care Provider Franck Alfaro MD Unavailable Neetu Soria E JENNA AIRCRAFT LANDING GEAR INSPECTOR Unavailable [phone] Encounter Details Date Type Department Care Team (Late st Contact Info) Description 06/12/2022 External Order Results [facility] [address] [place] [address] Outside, Provider Coronary artery disease of minto artery of minto heart with stable angina pectoris (H) Social History Tobacco Use Types Packs/Day Years Used Date Smoking Tobacco: Former Cigarettes 965 - 02/24/1984 Smokeless Tobacco: Never Alcohol [...] LIPID PROFILE Routine 06/12/2022 8:45 AM CDT ALT Routine 06/12/2022 8:45 AM CDT 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
--- OUTSIDE RECORDS SUMMARY | 2023-06-08 12:42 | XMS_ITS | Encounter Summary ---
Author Name Unknown Organization [place] Address [address] [facility] [place] [address] Care Team Providers Care Band And Cuff Cutter Name Role Phone System, Provider Not In Primary Care Provider Un available Clinic, [facility] Primary Care Provider Kevin Nelson MD Primary Care Provider [phone] Simon Gudino MD Unavailable Unavail able Ellen Govea PA-C Unavailable Unav ailable Franck Alfaro MD Unavailable Yang Neetu E CERTIFIED MEDICINE AIDE SUPERVISOR UNDERWRITING CLERKS Unavailable Franck Alfaro MD Unavailable [phone] Yang Neetu E CERTIFIED MEDICINE AIDE SUPERVISOR UNDERWRITING CLERKS Unavailable Encounter Details Date Type Department Care Team (Late st Contact Info) Description 01/12/2012 Office Visit-[facility] [address] [place] [address] Unknown, MD Josh Social History Tobacco Use Types Packs/Day Years Used Date Smoking Tobacco: Never Assessed Sex and Gender Information Value Date Recorded Sex Assigned at Not on file Gender Identity Not on file Sexual Orientation Not on file documented as of this encounter Progress Notes * Unknown, MD Josh - 01/13/2012 3:24 PM CST Progress Note Created by: Ellen Alejandre PA-C DATE: 01/12/2012 [id number] FOREST MADERA DATE OF : 1940 AGE: [age] years old Referring Physician: KRYSTLE CARLOS CURRENT DIAGNOSES 1. - CAD, 414.00 2. - Hypertension, benign, 401.1 3. Shortness of breath, 786.05 4. PTCA, V45.82 5. [place]-S/P Anterior, 412 6. - Hyperlipidemia, 272.4 ALLERGIES atenolol atorvastatin Beta blockers, Marked fatigue [...] Inhaler, Take as Directed CHIEF COMPLAINTS Review lab results HISTORY OF PRESENT ILLNESS Mr. Madera is a delightful 71-year-old gentleman who presents to the [facility] today for a follow-up visit. As you recall, he is followed in our office by Dr. Gudino with a past medical history of known coronary artery disease. He was here to see me for his annual visit last month and was having symptoms of shortness of breath with activity. He has a history of known coronary disease and stenting to his LAD after presenting with a non-ST elevation myocardialinfarction approximately five years ago. He was seen by his primary care doctor, had a CT scan of his chest showing no evidence of pulmonary masses or pulmonary emboli. His PFTs done were also nearlynormal. I did an echocardiogram showing no significant findings. The only thing we could think of is that he is probably overall deconditioned and his blood pressure was also borderline elevated whenI had seen him. For this reason, I had increased his losartan up to 50 mg twice a day and had him return for a follow-up visit. Also, a stress echocardiogram was done at [facility] showing noevidence of ischemia or infarction. I increased his losartan and he is feeling well. His blood pressures now have been running in the 120s consistently. He is now getting back into doing some regularwalking and feels very good with exercise. He has no new complaints. He still gets some shortness of breath with activity, but this has not worsened and is maybe somewhat improved. 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 EYES wears eye glasses/contact lenses, cataracts EARS, NOSE, THROAT, MOUTH denies any hearing loss, epistaxis, hoarseness or difficulty speaking. RESPIRATORY dyspnea with exertion, a little bit, cough, now and then CARDIOVASCULAR edema, slight ABDOMINAL positive for history of GERD GENITOURINARY-MALE no concerns MUSCULOSKELETAL pain in both feet, occas. muscle cramps NEUROLOGICAL headaches, occ. PSYCHIATRIC denies any history of depression, substance abuse or change in cognitive functions. ENDOCRINE denies any history of thyroid disease or diabetes mellitus. HEMATOLOGICAL/IMMUNOLOGIC medication allergies VASCULAR Numbness, both feet IMPRESSION/PLAN: 1. Hypertension. At this point in time, his blood pressure is much improved with increasing his losartan. His basic metabolic profile today is within normal limits. 2. Coronary artery disease, from which he is free of anginal symptoms. 3. Shortness of breath with activity, for which he has undergone thorough workup. I do not see anything cardiac-doherty that at this point in time would be causing any increased shortness of breath. I have encouraged him to continue with his regular routine aerobic exercise and work on diet, exercise and weight loss and lose the weight that he has gained over the last four years. 4. I will have him return to see Dr. Gudino in one years time. If he has any problems in the interim, certainly we would be able to see him sooner. Thank you for allowing us to be involved in his care. TODAYS ORDERS 1. F/U with Simon Gudino MD 1 year CONRADO Garcia documented in this encounter Plan of Treatment Not on file documented as of this encounter Visit Diagnoses Not on filedocumented in this encounter Care Teams Band And Cuff Cutter Relationship Specialty Start Date End Date System, Provider Not In PCP - General Clinic 07/26/13 10/12/13 [facility] [address] [place] [address] PCP - General 10/13/13 04/16/14 Kevin Nelson MD [address] [place] [address] PCP - General 04/17/14 Simon Gudino MD Assigned Heart and Vascular Provider 12/16/19 05/08/20 Ellen Govea PA-C Assigned Heart and Vascular Provider 05/09/20 03/16/21 Franck Alfaro MD [address] [place] [address] Assigned Heart and Vascular Provider 03/17/21 12/27/21 Neetu Soria APRN SUPERVISOR UNDERWRITING CLERKS [address] [place] [id number] Assigned Heart and Vascular Provider 12/28/21 04/18/22 Franck Alfaro MD [address] [place] [id number] Assigned Heart and Vascular Provider 04/19/22 06/27/22 Neetu Soria APRN SUPERVISOR UNDERWRITING CLERKS [address] [place] [id number] Assigned Heart and Vascular Provider 06/28/22 documented as of this encounter
--- NOTE | 2023-06-08 13:00 | MR_ITS ---
Patient: FOREST CHEEMA Facility:?[facility] Patient ID:?[id number] Site Patient ID:?[id number]. Site :?[id number] Study:?MRI-Spine Cervical WO-06/08/2023 2:09:13 PM Ordering Physician:DUTCH Final Report: Indication: Spinal canal stenosis. Technique: Noncontrast sagittal T1, T2, STIR and axial GRE sequences are provided. Comparison: No prior studies available for comparison at this institution. Findings: Normal cervical spine alignment. Slight retrolisthesis at C5-6 and anterolisthesis at C4-5. Benign intraosseous hemangioma in the C4 and C5 vertebral bodies. No aggressive osseous lesions. The craniocervical junction is unremarkable. No prevertebral or paraspinal edema. Ankylosis of the C3-4 left posterior elements. C1-2: No spinal canal stenosis C2-3: Moderate facet arthrosis. No significant spinal canal stenosis or neural foramen narrowing. C3-4: Left paracentral osteophytic spurring, uncovertebral joint hypertrophy and advanced left facet arthrosis. Severe left and moderate right neural foramen narrowing. Mild spinal canal stenosis. C4-5: Uncovertebral joint hypertrophy. Advanced left facet arthrosis and facet joint hypertrophy. Moderate left and mild right neural foramen narrowing. Mild spinal canal stenosis. C5-6: Uncovertebral joint hypertrophy. Advanced left and moderate right facet arthrosis. Severe right and moderate left neural foramen narrowing. Mild spinal canal stenosis. C6-7: Shallow disc osteophyte complex, uncovertebral joint hypertrophy and facet arthrosis. Moderate neural foramen narrowing bilaterally. Mild spinal canal stenosis. C7-T1: Moderate right facet arthrosis. Mild neural foramen narrowing bilaterally. No significant spinal canal stenosis. Impression : 1. No acute osseous or ligamentous abnormality. Mature interbody fusion at C3-4 levels. 2. Multilevel low-grade spinal canal narrowing. No high-grade spinal canal stenosis. 3. Severe left and moderate right neural foramen stenosis at C3-4, moderate left neural foramen narrowing at C4-5, severe right and moderate left neural foramen narrowing at C5-6, and moderate bilateral neural foramen narrowing at C6-7 levels. 4. No abnormal intramedullary spinal cord signal. Dictated by Simon Anderson MD @ 06/08/2023 3:47:26 PM Signed by:?Simon Anderson MD @06/08/2023 3:47:26 PM (Electronic Signature)
--- NOTE | 2023-06-08 13:45 | MR_ITS ---
Patient: FOREST CHEEMA Facility:?[facility] Patient ID:?[id number] Site Patient ID:?[id number]. Site :?[id number] Study:?MRI-Spine Lumbar WO-06/08/2023 2:09:48 PM Ordering Physician:DUTCH Final Report: Indication: Spinal canal stenosis. Technique: Noncontrast sagittal and axial T1, T2, and sagittal STIR sequences are provided. Comparison: Radiographs 06/01/2023 Findings: Normal lumbar lordotic curvature. There are 5 lumbar type vertebral bodies. No fractures. No prevertebral or paraspinal edema. No aggressive osseous lesions. Mature interbody fusion at L5-S1. Left renal cyst. T11-12: Disc desiccation. Moderate interspace narrowing. No significant spinal canal stenosis or neural foramen narrowing. T12-L1: No significant spinal canal stenosis or neural foramen narrowing. L1-2: No significant spinal canal stenosis or neural foramen narrowing. L2-3: No significant spinal canal stenosis or neural foramen narrowing. L3-4: Disc desiccation. Left anterolateral osteophytic spurring. Mild posterior disc bulge. No significant spinal canal stenosis or neural foramen narrowing. L4-5: Disc desiccation. Mild disc bulge. Moderate right facet arthrosis and mild left facet arthrosis. Mild subarticular recess narrowing. Mild narrowing of the neural foramen inferior recesses. L5-S1: Moderate facet arthrosis. Mild neural foramen narrowing bilaterally. No spinal canal stenosis. Impression : 1. Normal alignment. No acute osseous or ligamentous abnormality. 2. Mature interbody fusion at L5-S1. 3. Mild degenerative changes at L3-4 through L5-S1. No high-grade spinal canal stenosis or neural foramen narrowing. 4. No intradural pathology. Dictated by Simon Anderson MD @ 06/08/2023 3:41:06 PM Signed by:?Simon Anderson MD @06/08/2023 3:41:06 PM (Electronic Signature)
== END 2023-06-08 12:39 | disposition home or self-care (01) ==
LOC: MRI 12:39
PROVIDERS: PCP Surgery; Visit Provider Orthopaedic Surgery Orthopaedic Surgery of the Spine
DX: M48.02 Spinal stenosis, cervical region (principal); M48.062 Spinal stenosis, lumbar region with neurogenic claudication
CPT/HCPCS: 72141; 72148

== ENCOUNTER 2023-07-15 14:30 | Outpatient (RCR) | payer OTHER, SELFPAY | END 2023-11-12 23:59 | disposition home or self-care (01) | PROVIDERS: PCP Surgery; Visit Provider Orthopaedic Surgery Orthopaedic Surgery of the Spine | DX: M48.02 Spinal stenosis, cervical region (principal); M48.062 Spinal stenosis, lumbar region with neurogenic claudication; Z51.89 Encounter for other specified aftercare | CPT/HCPCS: 97110; 97140; 97162 ==

== ENCOUNTER 2023-08-19 06:50 | Emergency (ER) | payer OTHER, SELFPAY ==
[2023-08-19 06:59] VITALS: BP 167/83; PULSE 72; RESP 18; TEMP 35.9; O2SAT 98; BMI 27.9
--- NOTE | 2023-08-19 07:14 | CRLHL7_ITS ---
For Patients: As a result of the Century Cures Act, medical imaging exams and procedure reports are released immediately into your electronic medical record. You may view this report before your referring provider. If you have questions, please contact your health care provider. INDICATION: Shortness of breath, dyspnea, history of COPD COMPARISON: None. TECHNIQUE: PA and lateral 2 view chest. FINDINGS: Lung volumes are good. No focal or diffuse opacities. No pulmonary edema. No pleural effusion. No pneumothorax. No pneumomediastinum. Normal cardiomediastinal silhouette. Atherosclerotic vascular calcifications, including in the coronary arteries. Likely coronary artery stents. Bones: No acute findings.. IMPRESSION: Lungs clear. No acute appearing findings. Dictated by Darlene Gonzalez MD @ 08/19/2023 7:52:19 AM (Electronically Signed)
--- NOTE | 2023-08-19 07:17 | ED_ITS ---
HPI - General Adult General Chief complaint: Shortness of Breath/Dyspnea <Lizet Hooper MD - Last Filed: 08/19/23 23:59> Stated complaint: Trouble breathing, cough <Lizet Hooper MD - Last Filed: 08/19/23 23:59> Time Seen by Provider: 08/19/23 07:07 <Lizet Hooper MD - Last Filed: 08/19/23 23:59> Source: patient <Lizet Hooper MD - Last Filed: 08/19/23 23:59> Mode of arrival: ambulatory <Lizet Hooper MD - Last Filed: 08/19/23 23:59> Limitations: no limitations <Lizet Hooper MD - Last Filed: 08/19/23 23:59> History of Present Illness HPI narrative: 82-year-old male with prior history of COPD presents to the emergency department for evaluation of dyspnea. URI symptoms for about a week, worsening shortness of breath last night. No prior history of DVT or PE. Says that he is feeling more wheezy, no fever. Did try a neb treatment last night at around 4:00 a.m. with no significant improvement in symptoms. Has had to be hospitalized for his COPD in the past but does not believe he has ever had to be intubated. No chest pain, no productive cough. Does have a history of heart disease, also diabetes. No recent medication changes or missed doses. Is not on diuretics. No recent use of steroids, no pertinent travel. Past medical history notable for diabetes, heart disease, hypertension, COPD. He no longer smokes. Medications list is accurate per his report. Multiple drug intolerance is which do not appear consistent with allergies based on his description. ROS is notable for the respiratory symptoms as above only, otherwise patient denies times 12 systems. <Lizet Hooper MD - Last Filed: 08/19/23 23:59> Related Data Home medications: Home Medications ?Medication ?Instructions ?Recorded ?Confirmed amlodipine 2.5 mg tablet 2.5 mg PO DAILY 10/25/21 10/25/21 clopidogrel 75 mg tablet 75 mg PO DAILY 10/25/21 10/25/21 ferrous sulfate 325 mg (65 mg 325 mg PO DAILY 10/25/21 10/25/21 iron) tablet (FeroSul) gabapentin 100 mg capsule 100 mg PO Q12H 10/25/21 10/25/21 glipizide 5 mg tablet 5 mg PO DAILY 10/25/21 10/25/21 indomethacin 25 mg capsule 25 mg PO DAILY PRN 10/25/21 10/25/21 ipratropium 20 mcg-albuterol 100 1 puff inhalation Q6H 10/25/21 10/25/21 mcg/actuation mist for inhalation (Combivent Respimat) isosorbide mononitrate 30 mg 30 mg PO DAILY 10/25/21 10/25/21 tablet,extended release 24 hr levofloxacin 750 mg tablet 750 mg PO DAILY 10/25/21 10/25/21 losartan 50 mg tablet 50 mg PO DAILY 10/25/21 10/25/21 metformin 850 mg tablet 850 mg PO BID 10/25/21 10/25/21 nitroglycerin 0.4 mg sublingual 0.4 mg sublingual Q5M PRN 10/25/21 10/25/21 tablet oxycodone 5 mg tablet 5 mg PO HS PRN 10/25/21 10/25/21 rosuvastatin 20 mg tablet 10 mg PO HS 10/25/21 10/25/21 Previous Rx's ?Medication ?Instructions ?Recorded doxycycline hyclate 100 mg capsule 100 mg PO BID #14 caps 08/19/23 prednisone 20 mg tablet 20 mg PO BID #10 tabs 08/19/23 <Lizet Hooper MD - Last Filed: 08/19/23 23:59> Allergies/adverse reactions: Allergies Allergy/AdvReac Type Severity Reaction Status Date / Time atenolol Allergy Unknown Verified 10/25/21 14:21 atorvastatin Allergy Unknown Myalgia Verified 10/25/21 14:21 lisinopril AdvReac Unknown Cough Verified 10/25/21 14:21 metoprolol AdvReac Unknown Headache Verified 10/25/21 14:21 <Lizet Hooper MD - Last Filed: 08/19/23 23:59> [facility] Social History: Social History Smoking Status: Never smoker How often do you have a drink containing alcohol: never AUDIT-C Alcohol total score: 0 Non-prescribed substance use: denies use service: No <Lizet Hooper MD - Last Filed: 08/19/23 23:59> Exam Const: Vital Signs, click to edit/add: Vital Signs - 24 hr 08/19/23 06:59 Temperature 96.6 F L Pulse Rate [Left P ulse Oximeter] 72 Respiratory Rate 18 Blood Pressure [Le ft Upper Arm] 167/83 H Pulse Oximetry 98 Oxygen Delivery Me thod Room Air <Lizet Hooper MD - Last Filed: 08/19/23 23:59> Vital Signs, click to edit/add: Vital Signs - 24 hr 08/19/23 06:59 Temperature 96.6 F L Pulse Rate [Left P ulse Oximeter] 72 Respiratory Rate 18 Blood Pressure [Le ft Upper Arm] 167/83 H Pulse Oximetry 98 Oxygen Delivery Me thod Room Air <Jomar Marie MD - Last Filed: 08/19/23 09:12> Documenting provider has reviewed patient's vital signs: yes <Lizet Hooper MD - Last Filed: 08/19/23 23:59> Common normals: no apparent distress <Lizet Hooper MD - Last Filed: 08/19/23 23:59> General appearance: cooperative and well kempt <Lizet Hooper MD - Last Filed: 08/19/23 23:59> HENMT: Common normals: normocephalic and oropharynx normal <Lizet Hooper MD - Last Filed: 08/19/23 23:59> Head and scalp: normocephalic <Lizet Hooper MD - Last Filed: 08/19/23 23:59> Throat: posterior oropharynx normal <Lizet Hooper MD - Last Filed: 08/19/23 23:59> Eye: Common normals: conjunctivae normal <Lizet Hooper MD - Last Filed: 08/19/23 23:59> General eye: normal appearance of both eyes <Lizet Hooper MD - Last Filed: 08/19/23 23:59> Conjunctiva: conjunctiva(e) normal <MD Jose Weir Last Filed: 08/19/23 23:59> Neck & C-Spine: Common normals: full ROM and no lymphadenopathy <MD Jose Weir Last Filed: 08/19/23 23:59> Resp: Common normals: normal respiratory effort <MD Jose Weir Last Filed: 08/19/23 23:59> Other: Expiration prolonged 3-1 ratio with a coarse expiratory wheezing in all lung nelson and by basilar crackles. <MD Jose Weir Last Filed: 08/19/23 23:59> Cardio: Common normals: regular rate, regular rhythm, S1 normal heart sound, S2 normal heart sound and no murmurs <MD Jose Weir Last Filed: 08/19/23 23:59> Rate: regular rate <MD Jose Weir Last Filed: 08/19/23 23:59> Rhythm: regular rhythm <MD Jose Weir Last Filed: 08/19/23 23:59> Heart sounds: S1 normal and S2 normal <MD Jose Weir Last Filed: 08/19/23 23:59> GI: Common normals: Normal to inspection, nondistended, normoactive bowel sounds present, soft to palpation, non-tender, no hepatosplenomegaly and no masses <MD Jose Weir Last Filed: 08/19/23 23:59> Palpation: soft and no hepatosplenomegaly <MD Jose Weir Last Filed: 08/19/23 23:59> Extremity: Common normals: normal capillary refill <MD Jose Weir Last Filed: 08/19/23 23:59> Other: 1+ bilateral edema, chronic appearing. <MD Jose Weir Last Filed: 08/19/23 23:59> Neuro: Common normals: moves all extremities <MD Jose Weir Last Filed: 08/19/23 23:59> Speech: speech normal <MD Jose Weir Last Filed: 08/19/23 23:59> Psych: Appearance: well kempt <Lizet Hooper MD - Last Filed: 08/19/23 23:59> Attitude: engaged <Lizet Hooper MD - Last Filed: 08/19/23 23:59> Activity/motor behavior: appropriate eye contact <Lizet Hooper MD - Last Filed: 08/19/23 23:59> Insight: insight good <Lizet Hooper MD - Last Filed: 08/19/23 23:59> Judgement: judgment good <Lizet Hooper MD - Last Filed: 08/19/23 23:59> Skin: Common normals: no rashes or lesions noted <Lizet Hooper MD - Last Filed: 08/19/23 23:59> General skin exam: no rashes or lesions noted <Lizet Hooper MD - Last Filed: 08/19/23 23:59> Course Course ED Course: 82-year-old male with dyspnea and history of COPD. No chest pain, tachycardia or hypoxia to suggest pulmonary embolism. Differential diagnosis also including pneumonia, asthma, pulmonary contusion, acute OK, congestive heart failure, upper respiratory infection, among others. Recommend eLvi, 60 of IV Solu-Medrol, chest x-ray and typical lab workup. Await clinical response and findings. May need antibiotic management based on chest x-ray and lab findings. <Lizet Hooper MD - Last Filed: 08/19/23 23:59> Vital Signs Vital signs: Initial Vital Signs Temperature 96.6 F L 08/19/23 06:59 Temperature Source Temporal Artery Scan 08/19/23 06:59 Pulse Rate 72 08/19/23 06:59 Pulse Rhythm Regular 08/19/23 06:59 Respiratory Rate 18 08/19/23 06:59 Blood Pressure 167/83 H 08/19/23 06:59 Blood Pressure Mean 111 H 08/19/23 06:59 Blood Pressure Position Semi-Fowlers 08/19/23 06:59 Pulse Oximetry 98 08/19/23 06:59 Oxygen Delivery Method Room Air 08/19/23 06:59 Vital Signs Temperature 96.6 F L 08/19/23 06:59 Pulse Rate 72 08/19/23 06:59 Respiratory Rate 18 08/19/23 06:59 Blood Pressure 167/83 H 08/19/23 06:59 Pulse Oximetry 98 08/19/23 06:59 Oxygen Delivery Method Room Air 08/19/23 06:59 Temperature 96.6 F L 08/19/23 06:59 Pulse Rate 72 08/19/23 06:59 Respiratory Rate 18 08/19/23 06:59 Blood Pressure 167/83 H 08/19/23 06:59 Pulse Oximetry 98 08/19/23 06:59 Oxygen Delivery Method Room Air 08/19/23 06:59 <Lizet Hooper MD - Last Filed: 08/19/23 23:59> Initial Vital Signs Temperature 96.6 F L 08/19/23 06:59 Temperature Source Temporal Artery Scan 08/19/23 06:59 Pulse Rate 72 08/19/23 06:59 Pulse Rhythm Regular 08/19/23 06:59 Respiratory Rate 18 08/19/23 06:59 Blood Pressure 167/83 H 08/19/23 06:59 Blood Pressure Mean 111 H 08/19/23 06:59 Blood Pressure Position Semi-Fowlers 08/19/23 06:59 Pulse Oximetry 98 08/19/23 06:59 Oxygen Delivery Method Room Air 08/19/23 06:59 Vital Signs Temperature 96.6 F L 08/19/23 06:59 Pulse Rate 72 08/19/23 06:59 Respiratory Rate 18 08/19/23 06:59 Blood Pressure 167/83 H 08/19/23 06:59 Pulse Oximetry 98 08/19/23 06:59 Oxygen Delivery Method Room Air 08/19/23 06:59 Temperature 96.6 F L 08/19/23 06:59 Pulse Rate 72 08/19/23 06:59 Respiratory Rate 18 08/19/23 06:59 Blood Pressure 167/83 H 08/19/23 06:59 Pulse Oximetry 98 08/19/23 06:59 Oxygen Delivery Method Room Air 08/19/23 06:59 <Jomar Marie MD - Last Filed: 08/19/23 09:12> Medications Administered Medications: Discontinued Medications Generic Name Dose Route Start Last Admin Trade Name Freq PRN Reason Stop Dose Admin Albuterol/Ipratropium 1 neb 08/19/23 07:14 08/19/23 07:48 Iprat-Albut 0.5-2.5 Mg/3 Ml [facility] 08/19/23 07:15 1 [facility] ONCE ONE Administration Doxycycline Hyclate 100 mg 08/19/23 08:01 08/19/23 08:24 Doxycycline Hyclate 100 Mg PO 08/19/23 08:02 100 mg ONCE ONE Administration Methylprednisolone Sodium Succinate 60 mg 08/19/23 07:14 08/19/23 07:48 Methylprednisolone Sod Succ 40 Mg/Ml IVP 08/19/23 07:15 Not Given ONCE ONE Methylprednisolone Sodium Succinate 60 mg 08/19/23 07:45 08/19/23 07:48 Methylprednisolone Sod Succ 62.5 Mg/Ml (125) IVP 08/19/23 07:46 60 mg ONCE ONE Administration <Lizet Hooper MD - Last Filed: 08/19/23 23:59> Discontinued Medications Generic Name Dose Route Start Last Admin Trade Name Freq PRN Reason Stop Dose Admin Albuterol/Ipratropium 1 [facility] 08/19/23 07:14 08/19/23 07:48 Iprat-Albut 0.5-2.5 Mg/3 Ml [facility] 08/19/23 07:15 1 [facility] ONCE ONE Administration Doxycycline Hyclate 100 mg 08/19/23 08:01 08/19/23 08:24 Doxycycline Hyclate 100 Mg PO 08/19/23 08:02 100 mg ONCE ONE Administration Methylprednisolone Sodium Succinate 60 mg 08/19/23 07:14 08/19/23 07:48 Methylprednisolone Sod Succ 40 Mg/Ml IVP 08/19/23 07:15 Not Given ONCE ONE Methylprednisolone Sodium Succinate 60 mg 08/19/23 07:45 08/19/23 07:48 Methylprednisolone Sod Succ 62.5 Mg/Ml (125) IVP 08/19/23 07:46 60 mg ONCE ONE Administration <Jomar Marie MD - Last Filed: 08/19/23 09:12> Medical Decision Making MDM Narrative Medical decision making narrative: Lab results returned with reassuring findings. His C-reactive protein is elevated a bit at 2.4. The patient states that he feels better and is ready to return home. He received prescriptions for a steroid and an antibiotic. <Jomar Marie MD - Last Filed: 08/19/23 09:12> Lab Data Labs: Lab Results 08/19/23 08/19/23 08/19/23 Range/Units 07:17 07:41 07:55 WBC 7.25 (4.50-11.00) K/uL RBC 3.91 L (4.30-5.90) m/uL Hgb 12.1 L (13.5-17.5) gm/dL Hct 34.8 L (37.0-53.0) % MCV 89 (80-100) fL MCH 31 (26-34) pg MCHC 35 (32-36) gm/dL RDW Coeff of Elan 12.5 (11.5-15.5) % Plt Count 128 L (140-440) K/uL Neut % (Auto) 59.8 (42.0-72.0) % Lymph % (Auto) 28.0 (20-44) % Dougherty % (Auto) 9.5 (0.0-11.0) % Eos % (Auto) 2.1 (0.0-7.0) % Baso % (Auto) 0.3 (0.0-3.0) % Neut # (Auto) 4.34 (1.7-7.0) K/uL Lymph # (Auto) 2.03 (0.90-2.90) K/uL Dougherty # (Auto) 0.70 (0.00-0.90) K/UL Eos # (Auto) 0.15 (0.00-0.50) K/uL Baso # (Auto) 0.02 (0.00-0.30) K/uL Abs Immat Gran (auto) 0.02 (0.00-0.30) K/uL Imm/Tot Granulo (auto) 0.3 % Sodium 139 (135-149) mmol/L Potassium 4.2 (3.6-5.1) mmol/L Chloride 102 (96-114) mmol/L Carbon Dioxide 31 (20-32) mmol/L Anion Gap 6 L (7-15) mEq/L BUN 24 (7-30) mg/dL Creatinine 1.2 (0.5-1.5) mg/dL Estimated Creat Clear 48.81 Estimated GFR 60 ml/min Glucose 224 H (60-115) mg/dL Calcium 8.5 (8.4-10.6) mg/dL Total Bilirubin 0.8 (0.1-1.5) mg/dL AST 27 (12-35) U/L ALT 22 (4-50) U/L Alkaline Phosphatase 63 (40-150) U/L C-Reactive Protein 2.4 H (0.5-1.0) mg/dL NT-Pro-B Natriuret Pep 139 pg/mL Total Protein 6.7 (6.0-8.3) g/dL Albumin 4.2 (3.3-5.0) g/dL Procalcitonin 0.07 (<0.50) ng/mL SARS-CoV-2 (PCR) Negative SARS-CoV-2 (Negative) Influenza Type A (PCR) Negative PCR FLU A (Negative) Influenza Type B (PCR) Negative PCR FLU B (Negative) RSV (PCR) Negative PCR RSV (Negative) POC Troponin I 0.01 (0.01-0.04) ng/ml <Lizet Hooper MD - Last Filed: 08/19/23 23:59> Lab Results 08/19/23 08/19/23 08/19/23 Range/Units 07:17 07:41 07:55 WBC 7.25 (4.50-11.00) K/uL RBC 3.91 L (4.30-5.90) m/uL Hgb 12.1 L (13.5-17.5) gm/dL Hct 34.8 L (37.0-53.0) % MCV 89 (80-100) fL MCH 31 (26-34) pg MCHC 35 (32-36) gm/dL RDW Coeff of Elan 12.5 (11.5-15.5) % Plt Count 128 L (140-440) K/uL Neut % (Auto) 59.8 (42.0-72.0) % Lymph % (Auto) 28.0 (20-44) % Dougherty % (Auto) 9.5 (0.0-11.0) % Eos % (Auto) 2.1 (0.0-7.0) % Baso % (Auto) 0.3 (0.0-3.0) % Neut # (Auto) 4.34 (1.7-7.0) K/uL Lymph # (Auto) 2.03 (0.90-2.90) K/uL Dougherty # (Auto) 0.70 (0.00-0.90) K/UL Eos # (Auto) 0.15 (0.00-0.50) K/uL Baso # (Auto) 0.02 (0.00-0.30) K/uL Abs Immat Gran (auto) 0.02 (0.00-0.30) K/uL Imm/Tot Granulo (auto) 0.3 % Sodium 139 (135-149) mmol/L Potassium 4.2 (3.6-5.1) mmol/L Chloride 102 (96-114) mmol/L Carbon Dioxide 31 (20-32) mmol/L Anion Gap 6 L (7-15) mEq/L BUN 24 (7-30) mg/dL Creatinine 1.2 (0.5-1.5) mg/dL Estimated Creat Clear 48.81 Estimated GFR 60 ml/min Glucose 224 H (60-115) mg/dL Calcium 8.5 (8.4-10.6) mg/dL Total Bilirubin 0.8 (0.1-1.5) mg/dL AST 27 (12-35) U/L ALT 22 (4-50) U/L Alkaline Phosphatase 63 (40-150) U/L C-Reactive Protein 2.4 H (0.5-1.0) mg/dL NT-Pro-B Natriuret Pep 139 pg/mL Total Protein 6.7 (6.0-8.3) g/dL Albumin 4.2 (3.3-5.0) g/dL Procalcitonin 0.07 (<0.50) ng/mL SARS-CoV-2 (PCR) Negative SARS-CoV-2 (Negative) Influenza Type A (PCR) Negative PCR FLU A (Negative) Influenza Type B (PCR) Negative PCR FLU B (Negative) RSV (PCR) Negative PCR RSV (Negative) POC Troponin I 0.01 (0.01-0.04) ng/ml <Jomar Marie MD - Last Filed: 08/19/23 09:12> Imaging Data Chest x-ray: Attestation: I have reviewed the pertinent imaging results. <Lizet Hooper MD - Last Filed: 08/19/23 23:59> My impression: Clear chest x-ray. No effusions, infiltrates, cardiomegaly or significant air trapping <Lizet Hooper MD - Last Filed: 08/19/23 23:59> Radiologist's impression: IMPRESSION: Lungs clear. No acute appearing findings. <Lizet Hooper MD - Last Filed: 08/19/23 23:59> ECG Data Attestation: I personally reviewed and interpreted this ECG as follows: <Lizet Hooper MD - Last Filed: 08/19/23 23:59> Prior ECG tracings: available for review <Lizet Hooper MD - Last Filed: 08/19/23 23:59> Interpretation: Normal sinus rhythm, rate of [address] or T-wave abnormalities. Good R-wave progression normal intervals and axis <Lizet Hooper MD - Last Filed: 08/19/23 23:59> Discharge Plan Discharge Clinical Impression: Acute exacerbation of chronic obstructive pulmonary disease <Lizet Hooper MD - Last Filed: 08/19/23 23:59> Patient Disposition: Home, Self-Care <Lizet Hooper MD - Last Filed: 08/19/23 23:59> Condition: Improved <Lizet Hooper MD - Last Filed: 08/19/23 23:59> Instructions: COPD (Chronic Obstructive Pulmonary Disease) (DC) <Lizet Hooper MD - Last Filed: 08/19/23 23:59> Additional Instructions: You have a flare-up of your COPD from a respiratory infection. I have started you on a combination of prednisone which is a steroid and doxycycline which is an antibiotic. He will take each of these twice daily. You will be on the steroid for 5 more days in the antibiotic for 7 days. Continue using her nebulizer treatment up to every 4 hours as needed but definitely at least twice a day for the next 5 days to help clear out secretions. If you have severe shortness of breath, high fever or significant weakness, come back to the emergency department sooner. It may take up to 10 days for the cough to clear completely. <Lizet Hooper MD - Last Filed: 08/19/23 23:59> Activity Level: Activity as Tolerated <Lizet Hooper MD - Last Filed: 08/19/23 23:59> Activity as Tolerated <Jomar Marie MD - Last Filed: 08/19/23 09:12> Discharge Diet: Regular <Lizet Hooper MD - Last Filed: 08/19/23 23:59> Regular <Jomar Marie MD - Last Filed: 08/19/23 09:12> Prescriptions: New prednisone 20 mg tablet 20 mg PO BID Qty: 10 0RF doxycycline hyclate 100 mg capsule 100 mg PO BID Qty: 14 0RF No Action amlodipine 2.5 mg tablet 2.5 mg PO DAILY clopidogrel 75 mg tablet 75 mg PO DAILY Patient Comments: TAKE ONE TABLET DAILY ferrous sulfate [FeroSul] 325 mg (65 mg iron) tablet 325 mg PO DAILY Patient Comments: TAKE 1 TABLET BY MOUTH DAILY WITH A MEAL gabapentin 100 mg capsule 100 mg PO Q12H Patient Comments: TAKE 1 CAPSULE BY MOUTH TWICE DAILY glipizide 5 mg tablet 5 mg PO DAILY indomethacin 25 mg capsule 25 mg PO DAILY PRN Patient Comments: TAKE 1 CAPSULE BY MOUTH DAILY NEEDED FOR FOOT PAIN. DO NOT TAKE ON AN ON AN EMPTY STOMACH Combivent Respimat 20-100 mcg/actuation mist 1 puff INHALATION Q6H Patient Comments: INHALE 1 PUFF BY MOUTH EVERY 6 HOURS isosorbide mononitrate 30 mg tablet extended release 24 hr 30 mg PO DAILY levofloxacin 750 mg tablet 750 mg PO DAILY Patient Comments: TAKE 1 TABLET DAILY FOR 4 WEEKS losartan 50 mg tablet 50 mg PO DAILY metformin 850 mg tablet 850 mg PO BID nitroglycerin 0.4 mg tablet, sublingual 0.4 mg sublingual Q5M PRN oxycodone 5 mg tablet 5 mg PO HS PRN Patient Comments: 5 MG PO HS PRN Take as needed for foot pain. rosuvastatin 20 mg tablet 10 mg PO HS Patient Comments: TAKE 1/2 TABLET BY MOUTH EVERY EVENING <Lizet Hooper MD - Last Filed: 08/19/23 23:59> Follow Up/Referrals: Kevin Nelson MD [Primary Care Provider] - <Lizet Hooper MD - Last Filed: 08/19/23 23:59> Stand Alone Forms: MyHealth Info Instructions <Lizet Hooper MD - Last Filed: 08/19/23 23:59>
--- OUTSIDE RECORDS SUMMARY | 2023-08-19 07:35 | XMS_ITS | Encounter Summary ---
Author Organization [place] Address [address] [facility] [place] [address] Care Team Providers Care Supervisor [employer] Name Role Phone System, Provider Not In Primary Care Provider Un available Clinic, [facility] Primary Care Provider Amari Nelson MD Primary Care Provider Simon Gudino MD Unavailable Unavail able Ellen Govea-C Unavailable Unav ailable Franck Alfaro MD Unavailable [phone] Neetu Soria E [employer]UD[employer]CH[employer]IC MOTOR TESTER Unavailable Franck Alfaro MD Unavailable [phone] Yang Neetu E [employer]UD[employer] MECH[employer]IC ELECT[employer]IC MOTOR TESTER Unavailable [phone] Encounter Details Date Type Department Care Team (Late st Contact Info) Description 04/25/2013 Office Visit-[facility] [address] [place] [address] Unknown, MD Josh Social History [...] Created by: Ellen Alejandre PA-C DATE: 04/25/2013 [id number] [facility] DATE OF : 1940 AGE: [age] years old Referring Physician: AMARI NELSON Referring Clinic: [facility] CURRENT DIAGNOSES 1. - CAD, 414.00 2. - Hyperlipidemia, 272.4 3. - Hypertension, benign, 401.1 4. PTCA, V45.82 5. [place]-S/P Anterior, 412 6. - Angina Pectoris, 413.9 [...] delightful 72-year-old gentleman who presents to the [facility] today for a follow-up visit regarding his recent stress echocardiogram. As you recall, he is followed in our office by Dr. 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; Sexual Activity- sexually inactive; Residence - lives with ; Place of - [place]; Spouse's Occupation -retired; REVIEW OF [employer] GENERAL [...] filedocumented in this encounter Care Teams Supervisor [employer] Relationship Specialty Start Date End Date System, Provider Not In PCP - General Clinic 07/26/13 10/12/[address] [address] PCP - General 10/13/13 04/16/14 Amari Nelson MD [address] [place] [id number] PCP - General 04/17/14 Simon Gudino MD Assigned Heart and Vascular Provider 12/16/19 05/08/20 Ellen Govea PA-C Assigned Heart and Vascular Provider 05/09/20 03/16/21 Franck Alfaro MD [address] [place] [address] Assigned Heart and Vascular Provider 03/17/21 12/27/21 Neetu Soria, JENNA ELECTRIC MOTOR TESTER [address] [place] [address] Assigned Heart and Vascular Provider 12/28/21 04/18/22 Franck Alfaro MD [address] [place] [address] Assigned Heart and Vascular Provider 04/19/22 06/27/22 Neetu Soria, AUDIO VIDEO MECHANIC ELECTRIC MOTOR TESTER [address] [place] [address] Assigned Heart and Vascular Provider 06/28/22 documented as of this encounter
--- OUTSIDE RECORDS SUMMARY | 2023-08-19 07:35 | XMS_ITS | Referral Summary ---
Author Organization [place] Address [address] [facility] [place] [address] Care Team Providers Care Division Traffic Superintendent Name Role Phone Kevin Nelson MD Primary Care Provider [phone] Neetu Soria APRN METAL TRIM ERECTOR Unavailable [phone] Allergies Active Allergy Reactions Criticality Noted Date [...] 75 MG tabletIndications:Co ronary artery disease involving makah coronary artery of makah heart without angina pectoris Take 1 tablet (75 mg) by mouth daily 90 tablet 3 12/25/2021 Active isosorbide mononitrate (IMDUR) 30 MG 24 hr tabletIndications:DO E (dyspnea on exertion) Take 1 tablet (30 mg) by mouth daily 90 tablet 3 12/25/2021 Active ranolazine (RANEXA) 500 MG 12 hr tabletIndications:Co ronary artery disease involving makah coronary artery of makah heart with other form of angina pectoris [...] Overview: Added automatically from request for surgery [id number] Pre-syncope 08/07/2019 Status post coronary angiogram 03/02/2019 MONCADA (dyspnea on exertion) 02/25/2019 Overview: Added automatically from request for surgery [id number] Unstable angina 11/15/2016 Chest pain 08/08/2015 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) Overview: [...] artery disease of n ative artery of makah heart with stable angina pectoris (H24) 07/11/2020 03/07/2021 Overview: Added automatically from request for surgery [id number] Left subscapular pain 12/25/20132013 Dyspnea on exertion [...] on file Medical Devices Implanted Type Area Submarine Worker Device Identifier Shelf Expiration Date Model / Serial / Lot Stent Resolute Praveen De 2.7fr [id number] Ronyx [id number] Implanted:09/2019 at (Quantity not on file) Stent Drug Eluting (SHERI) [employer] 01/14/2020 [id number] / / [id number] Procedures Procedure Name Priority Date/Time Associated Diagnosis [...] - BLOOD ORDERABL ES Performing Organization Address [facility]/ZIP Co de Phone Number BREEZE PFT [...] - BLOOD ORDERABL ES Performing Organization Address City/[facility]/ZIP Co de Phone Number BREEZE PFT NON-INTERFACED (ONBASE SCANS) * (ABNORMAL) Hemoglobin A1c (08/07/2019 3:43 PM CDT) Hemoglobin A1C 6.2(H) 0 - 5.6 % 08/07/2019 4:24 PM CDT [facility] Comment: Normal <5.7% Prediabetes 5.7-6.4% ??Diabetes 6.5% or higher - adopted from ADA consensus guidelines. Blood specimen (specimen) 08/07/2019 3:43 PM CDT 08/07/2019 3:44 PM CDT Doinicio Collins MD LAB - BLOOD ORDERABL ES [facility] [address] [place] [address], [facility] [phone] from Last 3 Months or Most Recently Relevant to Health Maintenance Advance Directives For more information, please contact: [phone] Documents on File Type Date Recorded Patient Motion Picture Set Grip Expl anation Advance Directives and Living Will 09/27/2018 1:00 PM Health Care Directiv e 10/08/2011 * Full Code (Latest Code Status on File) Date Activated Date Inactivated Comments 08/07/2019 3:25 PM 08/08/2019 3:31 PM Question Answer Comments Code status determined by: Discussion with kostas nt/legal decision maker * Full Code Date [...] First Alternate Health Care Agent Care Teams Division Traffic Superintendent Relationship Specialty Start Date End Date Kevin Nelson MD [address] [facility] [address] PCP - General 04/17/14 Neetu Soria, JENNA METAL TRIM ERECTOR [address] [place] [address] Assigned Heart and Vascular Provider 06/28/22
--- OUTSIDE RECORDS SUMMARY | 2023-08-19 07:35 | XMS_ITS | Encounter Summary ---
Author Organization [place] Address [address] [facility] [place] [address] Care Team Providers Care Machine Operator Helper Name Role Phone System, Provider Not In Primary Care Provider Un available Clinic, [facility] Primary Care Provider Kevin Nelson MD Primary Care Provider Simon Gudino MD Unavailable Unavail able Ellen Govea-C Unavailable Unav ailable Franck Alfaro MD Unavailable [phone] Neetu Soria E BACKEND JAVA DEVELOPER FIRST HELPER Unavailable Franck Alfaro MD Unavailable [phone] Yang Neetu E BACKEND JAVA DEVELOPER FIRST HELPER Unavailable [phone] Encounter Details Date Type Department Care Team (Late st Contact Info) Description 01/12/2012 Office Visit-[facility] [address] [place] [address] Unknown, MD Josh Social History [...] Created by: Ellen Alejandre PA-C DATE: 01/12/2012 [id number] PRATIK MADERA DATE OF : 1940 AGE: [age] years old Referring Physician: KRYSTLE CARLOS CURRENT DIAGNOSES 1. - CAD, 414.00 2. - Hypertension, benign, 401.1 3. Shortness of breath, 786.05 4. PTCA, V45.82 5. [place]-S/P Anterior, 412 6. - Hyperlipidemia, 272.4 ALLERGIES [...] 71-year-old gentleman who presents to the [facility] today for a follow-up [...] Also, a stress echocardiogram was done at [facility] showing noevidence of ischemia or infarction. 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; Sexual Activity- sexually inactive; Residence - lives with ; Place of - [place]; Spouse's Occupation -retired; REVIEW OF SYSTEMS GENERAL [...] Simon Gudino MD 1 year CONRADO Garcia Electronically signed by [facility], [facility] Data Conversion at 07/07/2013 6:16 PM CDT documented in this encounter Plan of Treatment Not on file documented as of this encounter Visit Diagnoses Not on filedocumented in this encounter Care Teams Machine Operator Helper Relationship Specialty Start Date End Date System, Provider Not In PCP - General Clinic 07/26/13 10/12/13 [facility] [address] [place] [address] PCP - General 10/13/13 04/16/14 Kevin Nelson MD [address] [place] [address] PCP - General 04/17/14 Simon Gudino MD Assigned Heart and Vascular Provider 12/16/19 05/08/20 Ellen Govea PA-C Assigned Heart and Vascular Provider 05/09/20 03/16/21 Franck Alfaro MD [address] [place] [address] Assigned Heart and Vascular Provider 03/17/21 12/27/21 Neetu Soria APRN FIRST HELPER [address] [place] [id number] Assigned Heart and Vascular Provider 12/28/21 04/18/22 Franck Alfaro MD [address] [place] [id number] Assigned Heart and Vascular Provider 04/19/22 06/27/22 Neetu Soria APRN FIRST HELPER [address] [place] [id number] Assigned Heart and Vascular Provider 06/28/22 documented as of this encounter
--- OUTSIDE RECORDS SUMMARY | 2023-08-19 07:35 | XMS_ITS | Encounter Summary ---
Author Organization [place] Address [address] [facility] [place] [address] Care Team Providers Care Manager Of Product Name Role Phone System, Provider Not In Primary Care Provider Un available Clinic, [facility] Primary Care Provider Amari Nelson MD Primary Care Provider [phone] Simon Gudino MD Unavailable Unavail able Ellen Govea PA-C Unavailable Unav ailable Franck Alfaro MD Unavailable [phone] Yang Neetu E NITRILES LAB TECHNICIAN MATERIAL HANDLING WAREHOUSE SUPERVISOR Unavailable Franck Alfaro MD Unavailable [phone] Yang Neetu E NITRILES LAB TECHNICIAN MATERIAL HANDLING WAREHOUSE SUPERVISOR Unavailable [phone] Encounter Details Date Type Department Care Team (Late st Contact Info) Description 06/27/2013 Office Visit-[facility] [address] [place] [address] Unknown, MD Josh Social History [...] Note Created by: CONRADO Garcia DATE: 06/27/2013 [id number] FOREST MADERA DATE OF : 1940 AGE: [age] years old Referring Physician: AMARI NELSON Referring Clinic: [facility] CURRENT DIAGNOSES 1. - CAD, 414.00 2. - Hyperlipidemia, 272.4 3. - Hypertension, benign, 401.1 4. PTCA, V45.82 5. NM-S/P Anterior, 412 6. - Angina Pectoris, 413.9 [...] delightful 72-year-old gentleman who presents to the 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 Known coronary [...] on filedocumented in this encounter Care Teams Manager Of Product Relationship Specialty Start Date End Date System, Provider Not In PCP - General Clinic 07/26/13 10/12/13 [facility] [address] [place] [address] PCP - General 10/13/13 04/16/14 Amari Nelson MD [address] [place] [address] PCP - General 04/17/14 Simon Gudino MD Assigned Heart and Vascular Provider 12/16/19 05/08/20 Ellen Govea PA-C Assigned Heart and Vascular Provider 05/09/20 03/16/21 Franck Alfaro MD [address] [place] [address] Assigned Heart and Vascular Provider 03/17/21 12/27/21 Neetu Soria, NITRILES LAB TECHNICIAN MATERIAL HANDLING WAREHOUSE SUPERVISOR [address] [place] [address] Assigned Heart and Vascular Provider 12/28/21 04/18/22 Franck Alfaro MD [address] [place] [address] Assigned Heart and Vascular Provider 04/19/22 06/27/22 Neetu Soria, JENNA MATERIAL HANDLING WAREHOUSE SUPERVISOR [address] [place] [address] Assigned Heart and Vascular Provider 06/28/22 documented as of this encounter
--- OUTSIDE RECORDS SUMMARY | 2023-08-19 07:35 | XMS_ITS | Encounter Summary ---
Author Organization [place] Address [address] [facility] [place] [address] Care Team Providers Care Immunochemist Name Role Phone System, Provider Not In Primary Care Provider Un available Clinic, [facility] Primary Care Provider Kevin Nelson MD Primary Care Provider Simon Gudino MD Unavailable Unavail able Ellen Govea PA-C Unavailable Unav ailable Franck Alfaro MD Unavailable Yang Neetu Sarina PUBLIC INTERVIEWER MANGLE TENDER Unavailable Franck Alfaro MD Unavailable [phone] Yang Neetu Sarina PUBLIC INTERVIEWER MANGLE TENDER Unavailable Encounter Details Date Type Department Care Team (Late st Contact Info) Description 09/04/2009 Office Visit-[facility] [place] [address] [facility] [address] [place] [phone] Neetu Soria, PUBLIC INTERVIEWER MANGLE TENDER [address] [facility] [address] [place] [address] Social History Tobacco Use Types Packs/Day Years Used Date Smoking Tobacco: Never Assessed Sex and Gender Information Value Date Recorded Sex Assigned at Not on file Gender Identity Not on file Sexual Orientation Not on file documented as of this encounter Progress Notes * Neetu Soria NP - 09/06/2009 1:51 PM CDT Progress Note Created by: Neetu Soria N.P. [id number] DATE: 09/04/2009 FOREST MADERA DATE OF : 1940 AGE: [age] years old Referring Physician: KRYSTLE CARLOS CURRENT DIAGNOSES 1. - Angina Pectoris, 413.9 2. WY-S/P Anterior, 412 3. PTCA, V45.82 4. - [...] delightful 69-year-old male who presents to the [place] [facility] today for a follow-up visit. 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 documented in this encounter Plan of Treatment Not on file documented as of this encounter Visit Diagnoses Not on filedocumented in this encounter Care Teams Immunochemist Relationship Specialty Start Date End Date System, Provider Not In [facility] - General Clinic 07/26/13 10/12/13 [facility] [address] [id number] PCP - General 10/13/13 04/16/14 Kevin Nelson MD [address] [place] [address] PCP - General 04/17/14 Simon Guidno MD Assigned Heart and Vascular Provider 12/16/19 05/08/20 Ellen Govea PA-C Assigned Heart and Vascular Provider 05/09/20 03/16/21 Franck Alfaro MD [address] [place] [address] Assigned Heart and Vascular Provider 03/17/21 12/27/21 Neetu Soria, JENNA MANGLE TENDER [address] [place] [address] Assigned Heart and Vascular Provider 12/28/21 04/18/22 Franck Alfaro MD [address] [place] [address] Assigned Heart and Vascular Provider 04/19/22 06/27/22 Neetu Soria, JENNA MANGLE TENDER [address] [place] [address] Assigned Heart and Vascular Provider 06/28/22 documented as of this encounter
--- OUTSIDE RECORDS SUMMARY | 2023-08-19 07:35 | XMS_ITS | Encounter Summary ---
Author Organization [place] Address [address] [facility] [place] [address] Care Team Providers Care Supervisor Concrete Stone Fabricating Name Role Phone Kevin Nelson MD Primary Care Provider [phone] Franck Alfaro MD Unavailable Neetu Soria APRN PHOTOFINISHING LABORATORY WORKER Unavailable [phone] Reason for Visit * Reason Onset Date Comments general call 06/14/2022 Already did lab work at [facility] prior to Thursday06/16/[address] Soria. Is it necessary to do labs at [facility] [facility]? Encounter Details Date Type Department Care Team (Late st Contact Info) Description 06/14/[address] [place] [address] Kevin Nelson MD [address] [place] [phone] general call (Already did lab work at [facility] prior to Thursday06/16/[address] Soria. Is it necessary to do labs at [facility] [facility]?) Social History Tobacco Use Types Packs/Day Years [...] or concerns: Already did lab work at [facility] prior to Thursday06/16/[address] Soria. Is it necessary to do labs at [facility]? Date of last appointment with provider: 12/25/21 Okay to leave a detailed message?: Yes at Cell number on file: Telephone Information: documented in this encounter Plan of Treatment Not on file documented as of this encounter Visit Diagnoses Not on filedocumented in this encounter Additional Health Concerns Assessment Noted Time PHQ-9 Depression Total Score: 10 023 12:46 PM WELLNESS COORDINATOR documented as of this encounter Care Teams Supervisor Concrete Stone Fabricating Relationship Specialty Start Date End Date Kevin Nelson MD [address] [facility] [place] [address] PCP - General 04/17/14 Franck Alfaro MD [address] [place] [address] Assigned Heart and Vascular Provider 04/19/22 06/27/22 Neetu Soria APRN PHOTOFINISHING LABORATORY WORKER [address] [place] [address] Assigned Heart and Vascular Provider 06/28/22 documented as of this encounter
--- OUTSIDE RECORDS SUMMARY | 2023-08-19 07:35 | XMS_ITS | Encounter Summary ---
Author Organization [place] Address [address] [facility] [place] [address] Care Team Providers Care Lodge Attendant Name Role Phone System, Provider Not In Primary Care Provider Un available Clinic, [facility] Primary Care Provider Kevin Nelson MD Primary Care Provider Simon Gudino MD Unavailable Unavail able Ellen Govea PA-C Unavailable Unav ailable Franck Alfaro MD Unavailable [phone] Neetu Soria BRAKE SHOE REBUILDER TRADITIONAL CHINESE HERBALIST Unavailable Franck Alfaro MD Unavailable [phone] Neetu Soria BRAKE SHOE REBUILDER TRADITIONAL CHINESE HERBALIST Unavailable [phone] Encounter Details Date Type Department Care Team (Late st Contact Info) Description 12/21/2009 Office Visit-[facility] [address] [place] [phone] Simon Gudino MD Social History Tobacco Use [...] - CAD, 414.00 2. PTCA, V45.82 3. WY-S/P Anterior, 412 4. - Hyperlipidemia, 272.4 5. [...] previous stenting of the LAD for an W[place] in 2006 with subsequent normalization of ejection [...] - lives with ; Place of - [place]; Spouse's Occupation -retired; REVIEW OF SYSTEMS GENERAL [...] so I can find out who the edge roller is and I will check with the pharmacy. I will then anticipate reporting through [facility]. 2.Coronary artery disease. He has done well during the three years with his [place] with no change in his anatomy widely [...] on filedocumented in this encounter Care Teams Lodge Attendant Relationship Specialty Start Date End Date System, Provider Not In PCP - General Clinic 07/26/13 10/12/[address] [place] [address] PCP - General 10/13/13 04/16/14 [facility] [address] [facility] [address] PCP - General 04/17/14 Simon Gudino MD Assigned Heart and Vascular Provider 12/16/19 05/08/20 Ellen Govea PAJoseC Assigned Heart and Vascular Provider 05/09/20 03/16/21 Franck Alfaro MD [address] [place] [address] Assigned Heart and Vascular Provider 03/17/21 12/27/21 Neetu Soria, BRAKE SHOE REBUILDER TRADITIONAL CHINESE HERBALIST [address] [place] [address] Assigned Heart and Vascular Provider 12/28/21 04/18/22 Franck Alfaro MD [address] [place], [place] [address] Assigned Heart and Vascular Provider 04/19/22 06/27/22 Neetu Soria, BRAKE SHOE REBUILDER TRADITIONAL CHINESE HERBALIST [address] [place] [address] Assigned Heart and Vascular Provider 06/28/22 documented as of this encounter
--- OUTSIDE RECORDS SUMMARY | 2023-08-19 07:35 | XMS_ITS | Encounter Summary ---
Author Organization [place] Address [address] [facility] [address] Care Team Providers Care Signaling Project Engineer Name Role Phone System, Provider Not In Primary Care Provider Un available Clinic, [facility] Primary Care Provider Kevin Nelson MD Primary Care Provider Simon Gudino MD Unavailable Unavail able Ellen Govea-C Unavailable Unav ailable Franck Alfaro MD Unavailable [phone] Neetu Soria E CLINICAL NURSE MANAGER GEOLOGICAL SCIENCE TEACHER Unavailable [phone] Franck Alfaro MD Unavailable [phone] Yang Neetu E CLINICAL NURSE MANAGER GEOLOGICAL SCIENCE TEACHER Unavailable [phone] Encounter Details Date Type Department Care Team (Late st Contact Info) Description 12/15/2011 Office Visit-[facility] [address] [place] [address] Unknown, MD Josh Social History [...] Created by: Ellen Alejandre PA-C DATE: 12/15/2011 [id number] PRATIK MADERA DATE OF : 1940 AGE: [age] years old Referring Physician: KRYSTLE CARLOS CURRENT DIAGNOSES 1. - CAD, 414.00 2. - Hyperlipidemia, 272.4 3. - Hypertension, benign, 401.1 4. [place]-S/P Anterior, 412 5. Shortness of breath, 786.05 [...] delightful 71-year-old gentleman who presents to the [facility] today for a follow-up visit. As you recall, he was seen this past couple of weeks for his annual cardiology follow-up visit and he was concerned because he had shortness of breath with exertion over approximately 4-5 months. He has a history of known coronary artery disease with stenting to his LAD after presenting with an non-ST elevation [place] five years ago. He has not had [...] or infarction that was done at the [facility]. 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; Sexual Activity- sexually inactive; Residence - lives with ; Place of - [place]; Spouse's Occupation -retired; REVIEW OF SYSTEMS GENERAL [...] on filedocumented in this encounter Care Teams Signaling Project Engineer Relationship Specialty Start Date End Date System, Provider Not In PCP - General Clinic 07/26/13 10/12/13 [facility], [facility] [address] [place] [address] PCP - General 10/13/13 04/16/14 Kevin Nelson MD [address] [place] [address] PCP - General 04/17/14 Simon Gudino MD Assigned Heart and Vascular Provider 12/16/19 05/08/20 Ellen Govea PA-C Assigned Heart and Vascular Provider 05/09/20 03/16/21 Franck Alfaro MD [address] [place] [id number] Assigned Heart and Vascular Provider 03/17/21 12/27/21 Neetu Soria, CLINICAL NURSE MANAGER GEOLOGICAL SCIENCE TEACHER [address] [place] [phone] Assigned Heart and Vascular Provider 12/28/21 04/18/22 Franck Alfaro MD [address] [place] [id number] Assigned Heart and Vascular Provider 04/19/22 06/27/22 Neetu Soria APRN [facility] [address] [place] [id number] Assigned Heart and Vascular Provider 06/28/22 documented as of this encounter
--- OUTSIDE RECORDS SUMMARY | 2023-08-19 07:35 | XMS_ITS ---
Author Organization [place] Address [address] [facility] [place] [address] Care Team Providers Care Customer Service Representative Teller Name Role Phone Kevin Nelson MD Primary Care Provider [phone] Neetu Soria APRN INFECTIOUS DISEASE TECHNICIAN Unavailable [phone] Active Problems Problem Noted Date Diagnosed Date PAD (peripheral artery disease) (H24) 04/18/2022 Peripheral edema 03/07/2021 Abnormal findings on diagnos tic imaging of heart and coronary circulation 07/11/2020 Overview: Added automatically from request for surgery [id number] Pre-syncope 08/07/2019 Status post coronary angiogram 03/02/2019 MONCADA (dyspnea on exertion) 02/25/2019 Overview: Added automatically from request for surgery [id number] Unstable angina 11/15/2016 Chest pain 08/08/2015 Coronary artery disease of n ative artery of benton heart with stable angina pectoris (H24) Overview: [...] treatments are documented for this patient in [facility]. Treatments may have been administered in another system. Lifetime Dose Tracking * Chemical Lifetime Dose Automatic Entry Manual Entr y Total Air Kerma 773.2 mGy 0 mGy 773.2 mGy Aleksander DAP 121,692 mGy-cm2 0 mGy-cm2 121,692 mGy- cm2 Resolved Problems Problem Noted Date Diagnosed Date Resolved Date Coronary artery disease of n ative artery of benton heart with stable angina pectoris (H24) 07/11/2020 03/07/2021 Overview: Added automatically from request for surgery [id number] Left subscapular pain 12/25/20132013 Dyspnea on exertion 12/25/2013 12/27/19 14
--- OUTSIDE RECORDS SUMMARY | 2023-08-19 07:35 | XMS_ITS | Encounter Summary ---
Author Organization [place] Address [address] [facility] [address] Care Team Providers Care Briar Wood Sorter Name Role Phone System, Provider Not In Primary Care Provider Un available Clinic, [facility] Primary Care Provider Kevin Nelson MD Primary Care Provider Simon Gudino MD Unavailable Unavail able Ellen Govea PA-C Unavailable Unav ailable Franck Alfaro MD Unavailable [phone] Neetu Soria HANGER OFF CHEMIST INSTRUMENTATION Unavailable Franck Alfaro MD Unavailable [phone] Neetu Soria HANGER OFF CHEMIST INSTRUMENTATION Unavailable [phone] Encounter Details Date Type Department Care Team (Late st Contact Info) Description 05/21/2010 Office Visit-[facility] [address] [place] [phone] Simon Gudino MD Social History Tobacco Use [...] 1. - Chest Pain Precordial, 786.51 2. WI-S/P Anterior, 412 3. PTCA, V45.82 4. - [...] was referred from the Emergency Room at [facility] after a recent episode of chest pain. This gentleman is status post a non-ST elevation WI in 2006 with subsequent LAD stenting. He [...] prior to this and was living on [facility] 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 2. History of an anterior WI. Normalization of his ejection fraction following LAD [...] on filedocumented in this encounter Care Teams Briar Wood Sorter Relationship Specialty Start Date End Date System, Provider Not In PCP - General Clinic 07/26/13 10/12/[address] [address] PCP - General 10/13/13 04/16/14 Kevin Nelson MD [address] [place] [address] PCP - General 04/17/14 Simon Gudino MD Assigned Heart and Vascular Provider 12/16/19 05/08/20 Ellen Govea PA-C Assigned Heart and Vascular Provider 05/09/20 03/16/21 Franck Alfaro MD [address] [place] [address] Assigned Heart and Vascular Provider 03/17/21 12/27/21 Neetu Soria APRN CHEMIST INSTRUMENTATION [address] [place] [id number] Assigned Heart and Vascular Provider 12/28/21 04/18/22 Franck Alfaro MD [address] [place] [id number] Assigned Heart and Vascular Provider 04/19/22 06/27/22 Neetu Soria APRN [facility] [address] [place] [address] Assigned Heart and Vascular Provider 06/28/22 documented as of this encounter
--- OUTSIDE RECORDS SUMMARY | 2023-08-19 07:35 | XMS_ITS | Encounter Summary ---
Author Organization [place] Address [address] [facility] [place] [address] Care Team Providers Care Logistics Analyst Name Role Phone System, Provider Not In Primary Care Provider Un available Clinic, [facility] Primary Care Provider Kevin Nelson MD Primary Care Provider [phone] Simon Gudino MD Unavailable Unavail able Ellen Govea PA-C Unavailable Unav ailable Franck Alfaro MD Unavailable [phone] Neetu Soria E GENERAL MANAGER FARM EMERGENCY DISPATCH OPERATOR Unavailable Franck Alfaro MD Unavailable [phone] Yang Neetu Sarina GENERAL MANAGER FARM EMERGENCY DISPATCH OPERATOR Unavailable [phone] Encounter Details Date Type Department Care Team (Late st Contact Info) Description 12/01/2011 Office Visit-[facility] [place] [address] [facility] [address] [place] [address] Unknown, MD [...] Created by: Ellen Alejandre PA-C DATE: 12/01/2011 [id number] FOREST MADERA DATE OF : 1940 AGE: [age] years old Referring Physician: KRYSTLE CARLOS CURRENT DIAGNOSES 1. - CAD, 414.00 2. - Hyperlipidemia, 272.4 3. - Hypertension, benign, 401.1 4. PTCA, V45.82 5. VT-S/P Anterior, 412 6. Shortness of breath, 786.05 [...] delightful 71-year-old gentleman who presents to the [facility] today for his annual cardiology follow-up. As you recall, he is followed, in our office by Dr. Gudino with a past medical history of known coronary artery disease who had stenting to his LAD after presenting with a non-ST elevation VT approximately five years ago. 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 Return Visit 2 weeks CONRADO Garcia Electronically signed by [facility] [[email or web address]], Emr Data Conversion at 07/07/2013 6:16 PM CDT documented in this encounter Plan of Treatment Not on file documented as of this encounter Visit Diagnoses Not on filedocumented in this encounter Care Teams Logistics Analyst Relationship Specialty Start Date End Date System, Provider Not In PCP - General Clinic 07/26/13 10/12/13 [facility], [place] [address] [place] [address] PCP - General 10/13/13 04/16/14 Kevin Nelson MD [address] [facility] [place] [address] PCP - General 04/17/14 Simon Gudino MD Assigned Heart and Vascular Provider 12/16/19 05/08/20 Ellen Govea PA-C Assigned Heart and Vascular Provider 05/09/20 03/16/21 Franck Alfaro MD [address] [place] [address] Assigned Heart and Vascular Provider 03/17/21 12/27/21 Neetu Soria, GENERAL MANAGER FARM EMERGENCY DISPATCH OPERATOR [address] [place] [address] Assigned Heart and Vascular Provider 12/28/21 04/18/22 Franck Alfaro MD [address] [place] [id number] Assigned Heart and Vascular Provider 04/19/22 06/27/22 Neetu Soria, GENERAL MANAGER FARM EMERGENCY DISPATCH OPERATOR [address] [place] [address] Assigned Heart and Vascular Provider 06/28/22 documented as of this encounter
--- OUTSIDE RECORDS SUMMARY | 2023-08-19 07:35 | XMS_ITS | Encounter Summary ---
Author Organization [place] Address [address] [facility] [place] [address] Care Team Providers Care Punch Press Operator Helper Name Role Phone Kevin Nelson MD Primary Care Provider Franck Alfaro MD Unavailable [phone] Neetu Soria E JENNA POWERHOUSE MECHANIC Unavailable [phone] Encounter Details Date Type Department Care Team (Late st Contact Info) Description 05/27/2022 External Order Results [facility] [address] [place] [address] Outside, Provider Social History Tobacco Use Types [...] Depression Total Score: 10 023 12:46 PM TRUCKSMITH documented as of this encounter Care Teams Punch Press Operator Helper Relationship Specialty Start Date End Date Kevin Nelson MD [address] [place] [address] PCP - General 04/17/14 Franck Alfaro MD [address] [place] [address] Assigned Heart and Vascular Provider 04/19/22 06/27/22 Neetu Soria APRN [facility] [address] [place] [address] Assigned Heart and Vascular Provider 06/28/22 documented as of this encounter
--- OUTSIDE RECORDS SUMMARY | 2023-08-19 07:35 | XMS_ITS | Encounter Summary ---
Author Organization [place] Address [address] [facility] [place] [address] Care Team Providers Care Burner Hand Name Role Phone Kevin Nelson MD Primary Care Provider [phone] Franck Alfaro MD Unavailable Neetu Soria E PHOTOENGRAVING PRINTER TRIM OPERATOR Unavailable Encounter Details Date Type Department Care Team (Late st Contact Info) Description 06/12/2022 External Order Results [facility] [address] [place] [address] Outside, Provider Coronary artery disease of ak [place] artery of [place] chin heart with stable angina pectoris (H) Social [...] 8:45 AM CDT Coronary artery disease of ak [place] artery of [place] chin heart with stable angina pectoris (H) documented [...] Visit Diagnoses Diagnosis Coronary artery disease of ak chin artery of [place] chin heart with stable angina pectoris (H24) documented in this encounter Additional Health Concerns Assessment Noted Time PHQ-9 Depression Total Score: 10 04/18/2 023 12:46 PM DIPPER MACHINE OPERATOR documented as of this encounter Care Teams Burner Hand Relationship Specialty Start Date End Date [place] [address] PCP - General 04/17/14 Franck Alfaro MD [address] [place] [id number] Assigned Heart and Vascular Provider 04/19/22 06/27/22 Neetu Soria APRN [facility] [address] [place] [id number] Assigned Heart and Vascular Provider 06/28/22 documented as of this encounter
--- OUTSIDE RECORDS SUMMARY | 2023-08-19 07:35 | XMS_ITS | Clinical Summary ---
Author Organization [place] Address [id number] [address] Care Team Providers Care Electric Power Line Repairer Name Role Phone Kevin Nelson MD Primary Care Provider [phone] Neetu Soria APRN WOODWORKER HELPER Unavailable [phone] Allergies Active Allergy Reactions Criticality Noted Date [...] 75 MG tabletIndications:Co ronary artery disease involving [place] coronary artery of [place] heart without angina pectoris Take 1 tablet (75 mg) by mouth daily 90 tablet 3 12/25/2021 Active isosorbide mononitrate (IMDUR) 30 MG 24 hr tabletIndications:DO E (dyspnea on exertion) Take 1 tablet (30 mg) by mouth daily 90 tablet 3 12/25/2021 Active ranolazine (RANEXA) 500 MG 12 hr tabletIndications:Co ronary artery disease involving [place] coronary artery of [place] heart with other form of angina pectoris [...] Overview: Added automatically from request for surgery [id number] Pre-syncope 08/07/2019 Status post coronary angiogram 03/02/2019 MONCADA (dyspnea on exertion) 02/25/2019 Overview: Added automatically from request for surgery [id number] Unstable angina 11/15/2016 Chest pain 08/08/2015 Coronary artery disease of n ative artery of [place] heart with stable angina pectoris (H24) Overview: [...] artery disease of n ative artery of [place] heart with stable angina pectoris (H24) 07/11/2020 03/07/2021 Overview: Added automatically from request for surgery [id number] Left subscapular pain 12/25/20132013 Dyspnea on exertion 12/25/2013 12/27/19 14 Immunizations Name Administration Dates Next Due Influenza (High Dose) 3 brooke nt vaccine 11/21/2013 Influenza (IIV3) PF 01/17/2015, 3,12/22/2011,2010,12/24/2009,12/11/2008,12/08/2007,1 ,12/24/2005 Pneumo Conj 13-V (2010&after) 04/27/2015 Pneumococcal 23 valent 11/01/2003 TD,PF 7+ (Tenivac) 11/06/2005 Tdap (Adult) Unspecified Formulation 08/18/2011 Zoster vaccine, live 12/08/2006 Family History Medical History Relation Comments Heart Disease Brother MD in 50 + Heart Disease Father MD, and [place] Hypertension Mother Respiratory Mother copd [...] HM ORDERS 1940 DIABETIC FOOT EXAM 1940 EYE EXAM 1940 MICROALBUMIN 1940 RSV VACCINE ( & 60+) (1 - 1-dose 60+ series) 1998 FALL RISK ASSESSMENT 08/28/2003 A1C 02/06/2020 08/07/2019, 10/25, 08/13/2015, Additional history exists DTAP/TDAP/TD IMMUNIZATION (2 - Td or Tdap) 08/17/2021 08/18/2011, 08/18/2011, 11/06/2005 COVID-19 Vaccine ( season) 2022 12/13/2020, 04/21/2020, 03/31/2020 MEDICARE ANNUAL WELLNESS VISIT 11/12/2022 11/12/2021, 08/28/2020 PHQ-2 (once per calendar year) 2023 04/18/2022, 04/18/2022, 03/21/2019, Additional history exists BMP 05/28/2023 05/27/2022, 06/24, 07/18/2020, Additional history exists LIPID 06/13/2023 06/12/2022, 09/24, 09/23/2018, Additional history exists ADVANCE CARE PLANNING 09/28/2023 09/27/2018 INFLUENZA VACCINE (Season Ended) 2023 11/19/2021, 11/13/2020, 12/06/2019, Additional history exists Pneumococcal Vaccine: 65+ Years Completed 04/27/2015, 11/01/2003 [...] this topic Medical Devices Implanted Type Area Director Toxicology Device Identifier Shelf Expiration Date Model / Serial / Lot Stent Resolute [place] De 2.7fr [id number] Ronyx [id number] Implanted:09/2019 at [facility] (Quantity not on file) Stent Drug Eluting (SHERI) [employer] 01/14/2020 [id number] / / [id number] Procedures Procedure Name Priority Date/Time Associated Diagnosis [...] - BLOOD ORDERABL ES Performing Organization Address City/[facility]/ZIP Co de Phone Number BREEZE PFT [...] ES BREEZE PFT NON-INTERFACED (ONBASE SCANS) * (ABNORMAL) Hemoglobin A1c (08/07/2019 3:43 PM CDT) Hemoglobin A1C 6.2(H) 0 - 5.6 % 08/07/2019 4:24 PM CDT [facility] Comment: Normal <5.7% Prediabetes 5.7-6.4% ??Diabetes 6.5% or higher - adopted from ADA consensus guidelines. Blood specimen (specimen) 08/07/2019 3:43 PM CDT 08/07/2019 3:44 PM CDT Dionicio Collins MD LAB - BLOOD ORDERABL ES [facility] [address] [place] [address], [facility] [phone] from Last 3 Months or Most Recently Relevant to Health Maintenance Advance Directives For more information, please contact: [phone] Documents on File Type Date Recorded Patient Lacquer Pin Press Operator Expl anation Advance Directives and Living Will [...] First Alternate Health Care Agent Care Teams Electric Power Line Repairer Relationship Specialty Start Date End Date Kevin Nelson MD [address] [place] [address] PCP - General 04/17/14 Neetu Soria APRN WOODWORKER HELPER [address] [place] [address] Assigned Heart and Vascular Provider 06/28/22
--- OUTSIDE RECORDS SUMMARY | 2023-08-19 07:35 | XMS_ITS | Encounter Summary ---
Author Organization [place] Address [address] [facility] [place] [address] Care Team Providers Care Marketing Strategy Manager Name Role Phone System, Provider Not In Primary Care Provider Un available Clinic, [facility] Primary Care Provider Amari Nelson MD Primary Care Provider Simon Gudino MD Unavailable Unavail able Ellen Govea PA-C Unavailable Unav ailable Franck Alfaro MD Unavailable [phone] Neetu Soria BANKING SERVICES CLERK INSTANT POTATO PROCESSING SUPERVISOR Unavailable Franck Alfaro MD Unavailable [phone] Neetu Soria BANKING SERVICES CLERK INSTANT POTATO PROCESSING SUPERVISOR Unavailable [phone] Encounter Details Date Type Department Care Team (Late st Contact Info) Description 03/10/2013 Office Visit-[facility] [address] [place] [phone] Simon Gudino MD Social History Tobacco Use Types Packs/Day Years Used Date Smoking Tobacco: Never Assessed Sex and Gender Information Value Date Recorded Sex Assigned at Not on file Gender Identity Not on file Sexual Orientation Not on file documented as of this encounter Progress Notes * Simon Gudino MD - 03/14/2013 2:53 PM CST Progress Note Created by: Simon Gudino M.D. DATE: 03/10/2013 FOREST MADERA DATE OF : 1940 AGE: [age] years old Referring Physician: AMARI NELSON Referring Clinic: [facility] CURRENT DIAGNOSES 1. - CAD, 414.00 2. - Hyperlipidemia, 272.4 3. - Hypertension, benign, 401.1 4. PTCA, V45.82 5. AL-S/P Anterior, 412 6. 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; Sexual Activity- sexually inactive; Residence - lives with ; Place of - [place]; Spouse's Occupation -retired; REVIEW OF SYSTEMS GENERAL [...] on filedocumented in this encounter Care Teams Marketing Strategy Manager Relationship Specialty Start Date End Date System, Provider Not In PCP - General Clinic 07/26/13 10/12/[address] [address] PCP - General 10/13/13 04/16/14 Amari Nelson MD [address] [place] [address] PCP - General 04/17/14 Simon Gudino MD Assigned Heart and Vascular Provider 12/16/19 05/08/20 Ellen Govea PA-C Assigned Heart and Vascular Provider 05/09/20 03/16/21 Franck Alfaro MD [address] [address] Assigned Heart and Vascular Provider 03/17/21 12/27/21 Neetu Soria APRN INSTANT POTATO PROCESSING SUPERVISOR [address] [place] [address] Assigned Heart and Vascular Provider 12/28/21 04/18/22 Franck Alfaro MD [address] [address] Assigned Heart and Vascular Provider 04/19/22 06/27/22 Neetu Soria APRN INSTANT POTATO PROCESSING SUPERVISOR [address] [place] [address] Assigned Heart and Vascular Provider 06/28/22 documented as of this encounter
--- OUTSIDE RECORDS SUMMARY | 2023-08-19 07:35 | XMS_ITS | Continuity of Care Document ---
Author Organization [facility] Address [address] [place] [address] Phone Care Team Providers Care Wool Sampler Name Role Phone Arun LEDEZMA, PhD, Marky [...] Available - Active Procedures Procedure Date Office/Outpatient Visit,[facility] 2023 Advance Directives Directive Yes / No Effective Date File Name No Information Encounters Encounter Description Practice Location Reason(s) For Visit Diagnoses Date Provider Providers Copied on Encounter [facility], [address], [place], [id number], [place] tel:[phone] No Information Arun Negro. [facility], [address], [place], [address], [place]. tel:[phone] Office/Outpat ient Visit,, [facility], [address], [place], [place], [id number], [place] tel:[phone] [facility] Paresthesia of skin Arun Negro. [facility], [address], [place], [address], [place]. tel:[phone] Referring Provider: Luis Stevenson [facility] [address], [place], [address]. tel:[phone] Family History Family Member Type Diagnosis Age At Onset No Information Payers Payer name Insurance type Covered alliance party ID Authorbryna mahi(s) [employer] Advantage [id number] Social History Type Description Quantity Date Captured Comments Sex Male Smoking Status No Information Chief Complaint And Reason For Visit No [...]
--- OUTSIDE RECORDS SUMMARY | 2023-08-19 07:35 | XMS_ITS | Encounter Summary ---
Author Organization [place] Address [address] [facility] [place] [address] Care Team Providers Care Electrical Subcontractor Name Role Phone System, Provider Not In Primary Care Provider Un available Clinic, [facility] Primary Care Provider Kevin Nelson MD Primary Care Provider Simon Gudino MD Unavailable Unavail able Ellen Govea PA-C Unavailable Unav ailable Franck Alfaro MD Unavailable [phone] Neetu Soria SHIRT LINE OPERATOR BATCH WEIGHER Unavailable Franck Alfaro MD Unavailable [phone] Neetu Soria SHIRT LINE OPERATOR BATCH WEIGHER Unavailable [phone] Encounter Details Date Type Department Care Team (Late st Contact Info) Description 08/16/2009 Office Visit-[facility] [address] [place] [phone] Simon Gudino MD Social History Tobacco Use [...] Created by: Simon Gudino M.D. DATE: 08/16/2009 PRATIK MADERA DATE OF : 1940 AGE: [age] years old Referring Physician: KRYSTLE CARLOS CURRENT DIAGNOSES 1. - Angina Pectoris, 413.9 2. KS-S/P Anterior, 412 3. PTCA, V45.82 4. 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 2. History of anterior KS with subsequent normalization of ejection fraction. He [...] filedocumented in this encounter Care Teams Electrical Subcontractor Relationship Specialty Start Date End Date System, Provider Not In PCP - General Clinic 07/26/13 10/12/13 [place] [address] PCP - General 10/13/13 04/16/14 Kevin Nelson MD [address] [facility] [address] [place] [address] PCP - General 04/17/14 Simon Gudino MD Assigned Heart and Vascular Provider 12/16/19 05/08/20 Ellen Govea PA-C Assigned Heart and Vascular Provider 05/09/20 03/16/21 Franck Alfaro MD [address] [place] [address] Assigned Heart and Vascular Provider 03/17/21 12/27/21 Neetu Soria, JENNA BATCH WEIGHER [address] [place] [address] Assigned Heart and Vascular Provider 12/28/21 04/18/22 Franck Alfaro MD [address] [place] [address] Assigned Heart and Vascular Provider 04/19/22 06/27/22 Neetu Soria, JENNA BATCH WEIGHER [address] [place] [address] Assigned Heart and Vascular Provider 06/28/22 documented as of this encounter
--- OUTSIDE RECORDS SUMMARY | 2023-08-19 07:35 | XMS_ITS | Encounter Summary ---
Author Organization [place] Address [address] [facility] [place] [address] Care Team Providers Care Adoption Social Worker Name Role Phone System, Provider Not In Primary Care Provider Un available Clinic, [facility] Primary Care Provider Kevin Nelson MD Primary Care Provider Simon Gudino MD Unavailable Unavail able Ellen Govea PA-C Unavailable Unav ailable Franck Alfaro MD Unavailable [phone] Neetu Soria SUPERVISOR TAN ROOM RAZOR SHARPENER Unavailable [phone] Franck Alfaro MD Unavailable [phone] Neetu Soria SUPERVISOR TAN ROOM RAZOR SHARPENER Unavailable [phone] Encounter Details Date Type Department Care Team (Late st Contact Info) Description 12/11/2010 Office Visit-[facility] [address] [place] [phone] Simon Gudino MD Social History Tobacco Use [...] - Hyperlipidemia, 272.4 3. PTCA, V45.82 4. PR-S/P Anterior, 412 5. - Hypertension, benign, 401.1 [...] Assessment, Followup of - CAD, Followup of PR-S/P Anterior and Followup of PTCA HISTORY OF PRESENT ILLNESS I had the opportunity to see Mr. Madera today. This 70-year-old gentleman was seen for follow up of his coronary disease. He is now four years out from stenting of the LAD after presenting with a non-ST elevation myocardial infarction. Clinically, he has done well over the last six months. He [id number] rounds of golf this summer and noticed [...] (which then resolved after going [place]) remains completely resolved. 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 <FONT COLOR=#[id number]><FONT POINT=10> Weight- 224.30 lbs. Height- 67 CONSTITUTIONAL [...] person and place. MEDICATIONS UPDATED/STARTED TODAY: <FONT COLOR=#[id number]><FONT POINT=10> IMPRESSION/PLAN: 1. Coronary artery disease. He [...] know if you have any questions. <FONT COLOR=#[id number]><FONT POINT=10> TODAYS ORDERS 1. F/U with Ellen Alejandre PA-C 1 year Simon Gudino M.D. documented in this encounter Plan of Treatment Not on file documented as of this encounter Visit Diagnoses Not on filedocumented in this encounter Care Teams Adoption Social Worker Relationship Specialty Start Date End Date System, Provider Not In PCP - General Clinic 07/26/13 10/12/13 [facility], [facility] [address] [place] [address] PCP - General 10/13/13 04/16/14 Kevin Nelson MD [address] [place] [address] PCP - General 04/17/14 Simon Gudino MD Assigned Heart and Vascular Provider 12/16/19 05/08/20 Ellen Govea PA-C Assigned Heart and Vascular Provider 05/09/20 03/16/21 Franck Alfaro MD [address] [place] [phone] Assigned Heart and Vascular Provider 03/17/21 12/27/21 Neetu Soria, JENNA RAZOR SHARPENER [address] [place] [id number] Assigned Heart and Vascular Provider 12/28/21 04/18/22 Franck Alfaro MD [address] [place] [phone] Assigned Heart and Vascular Provider 04/19/22 06/27/22 Neetu Soria APRN RAZOR SHARPENER [address] [place] [phone] Assigned Heart and Vascular Provider 06/28/22 documented as of this encounter
--- OUTSIDE RECORDS SUMMARY | 2023-08-19 07:36 | XMS_ITS | Encounter Summary ---
Author Organization [place] Address [address] [facility] [place] [address] Care Team Providers Care Concrete Pipe Making Machine Operator Name Role Phone System, Provider Not In Primary Care Provider Un available Clinic, [facility] Primary Care Provider Kevin Nelson MD Primary Care Provider [phone] Simon Gudino MD Unavailable Unavail able Ellen Govea PA-C Unavailable Unav ailable Franck Alfaro MD Unavailable [phone] Neetu Soria DESIGN PRINTER BALLOON ELECTRIC TRUCK DRIVER Unavailable Franck Alfaro MD Unavailable [phone] Neetu Soria DESIGN PRINTER BALLOON ELECTRIC TRUCK DRIVER Unavailable [phone] Encounter Details Date Type Department Care Team (Late st Contact Info) Description 07/25/2008 Office Visit-[facility] [address] [place] [phone] Simon Gudino MD Social History Tobacco Use [...] Created by: Simon Gudino M.D. DATE: 07/25/2008 PRATIK MADERA DATE OF : 1940 AGE: [age] years old Referring Physician: KRYSTLE LEROY Clinic:[facility] CURRENT DIAGNOSES 1. - CAD, 414.00 2. PTCA, V45.82 3. VA-S/P Anterior, 412 4. - Hyperlipidemia, 272.4 5. [...] the chest pain he had with his VA and it resolves with rest. 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; Sexual Activity - sexually inactive; [...] on filedocumented in this encounter Care Teams Concrete Pipe Making Machine Operator Relationship Specialty Start Date End Date System, Provider Not In PCP - General Clinic 07/26/13 10/12/13 [facility], [facility] [address] [place] [address] PCP - General 10/13/13 04/16/14 Kevin Nelson MD [address] [place] [address] PCP - General 04/17/14 Simon Gudino MD Assigned Heart and Vascular Provider 12/16/19 05/08/20 Ellen Govea PA-C Assigned Heart and Vascular Provider 05/09/20 03/16/21 Franck Alfaro MD [address] [place] [address] Assigned Heart and Vascular Provider 03/17/21 12/27/21 Neetu Soria, JENNA ELECTRIC TRUCK DRIVER [address] [place] [address] Assigned Heart and Vascular Provider 12/28/21 04/18/22 Franck Alfaro MD [address] [place] [address] Assigned Heart and Vascular Provider 04/19/22 06/27/22 Neetu Soria APRN ELECTRIC TRUCK DRIVER [address] [place] [address] Assigned Heart and Vascular Provider 06/28/22 documented as of this encounter
--- OUTSIDE RECORDS SUMMARY | 2023-08-19 07:36 | XMS_ITS | Clinical Summary ---
Author Organization [employer] [facility] Address [place], [place] [address] Care Team Providers Care Distribution Manager Name Role Phone Sebastian Rene Uma Unavailable [phone] Iris Manzano Unavailable Unavailable Kevin Nelson MD Primary Care Provider [phone] Allergies Active Allergy Reactions Criticality Noted Date Comments Atenolol Bradycardia 12/08/2006 & Fatigue Atorvastatin Myalgia 12/08/2006 Lisinopril Cough 12/08/2006 Metoprolol *Unknown 12/30/2013 headaches Medications Medication Sig Dispensed Refills Start Date End Date Status omeprazole (PRILOSEC) 20 mg capsule Take 1 capsule by mouth once daily before a meal. 0 04/21/2011 Active cyanocobalamin (VITAMIN B-12) 1,000 mcg tabletIndications:B1 2 deficiency Take 1 tablet by mouth once daily. 90 tablet 3 09/19/2018 Active TRUE METRIX GLUCOSE TEST STRIP stripIndications:New ly diagnosed diabetes (HC) TEST TWICE DAILY 200 Each 3 04/14/2020 Active albuterol HFA (PRO-AIR; VENTOLIN; PROVENTIL) 90 mcg/actuation inhalerIndications:D OE (dyspnea on exertion) Inhale 1-2 Puffs by mouth every 4 hours if needed for Shortness of Breath 1st choice. 3 Each 3 06/05/2021 Active nitroglycerin (NITROSTAT) 0.4 mg sublingual tabletIndications:Co ronary artery disease, unspecified vessel or lesion type, unspecified whether angina present, unspecified whether yuhaaviatam or transplanted heart DISSOLVE 1 TABLET UNDER TONGUE EVERY 5 MINUTES IF NEEDED FOR CHEST PAIN 25 Tablet 2 02/11/2022 Active Catheter (Self-Cath) 14-16 Fr- miscIndications:Aton ic bladder Self cath as needed up to 4 times per day 360 Each 3 06/02/2022 Active clopidogreL (PLAVIX) 75 mg tabletIndications:Co ronary artery disease, unspecified vessel or lesion type, unspecified whether angina present, unspecified whether yuhaaviatam or transplanted heart Take 1 Tablet (75 mg) by mouth once daily. 90 Tablet 3 11/18/2022 Active furosemide (LASIX) 40 mg tabletIndications:Ed sayra of both legs Take 1 Tablet (40 mg) by mouth every morning. 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 180 Tablet 3 11/18/2022 Active isosorbide mononitrate (IMDUR) 30 mg extended release tablet 24 HourIndications:Nuria nary artery disease, unspecified vessel or lesion type, unspecified whether angina present, unspecified whether yuhaaviatam or transplanted heart Take 1 Tablet (30 mg) by mouth once daily. 90 Tablet 11/18/2022 Active losartan (COZAAR) 50 mg tabletIndications:Es sential hypertension Take 1 Tablet (50 mg) by mouth once daily. 90 Tablet 11/18/2022 Active metFORMIN (GLUCOPHAGE) 1,000 mg tabletIndications:Ty pe 2 diabetes mellitus with diabetic polyneuropathy, without long-term current use of insulin (HC) Take 1 Tablet (1,000 mg) by mouth two times daily with meals. 180 Tablet 11/18/2022 Active ranolazine (RANEXA) 500 mg Controlled-Release tabletIndications:Co ronary artery disease, unspecified vessel or lesion type, unspecified whether angina present, unspecified whether yuhaaviatam or transplanted heart Take 1 Tablet (500 mg) by mouth two times daily. 180 Tablet 3 11/18/2022 Active rosuvastatin (CRESTOR) 20 mg tabletIndications:Co ronary artery disease, unspecified vessel or lesion type, unspecified whether angina present, unspecified whether yuhaaviatam or transplanted heart Take 1 Tablet (20 mg) by mouth once daily with evening meal. 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 90 Tablet 3 05/28/2023 Active Active Problems Problem Noted Date Diagnosed Date Skin cancer 03/28/2022 Overview: 02/11/2022:left shoulder BCC nodular and infiltrative types, Excised 04/24/2022 03/25/22: left medial upper back, nBCC: ED&C scheduled 04/08/22 with CONRADO Guillen 03/25/22: right alevism, nBCC, Mohs done 04/25/[address] 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 Has had 6 stents placed in the [...] Encounters Date Type Department Care Team Description 06/08/2023 Orders Only [facility] Scanner 1 scan: (1-Ord) [facility], LUMBAR SPINE WO CON, 06/08/2023 06/08/2023 Orders Only [facility] Scanner 1 scan: (1-Ord) [facility], CERVICAL SPINE, 06/08/2023 06/01/2023 Orders Only [facility] Scanner 1 scan: (1-Ord) [facility], XR LUMBAR SPINE MIN 4V, 06/01/2023 05/28/2023 9:25 AM CDT Office Visit [facility] [address] [place] [address] Kevin Nelson MD Diabetes 05/28/2023 Travel from Last 3 Months Immunizations Name Administration Dates Next Due Amb Influenza, Inact (High-d ose) (Flu Clinic Only) 01/17/2015 COVID-19 vaccine ([employer] 30mcg/0.3mL) PF, MDV 12/13/2020,04/21/2020,03/31/2020 Influenza RIV4 (Age 18+ Year s) [...] Name Comments Heart Disease Brother 1 Ricardo MD @ 54 yo; 2 more stents recently 03/2012 Diabetes Brother 3 Heart Disease Father Hans Hypertension Father Hans Stroke Father Hans Other Mother Denesal COPD Heart Disease Sister 1 Feb MD Anesthesia Problem No Family History Blood Disease No Family History Relation Name Status Comments Brother 1 Ricardo Alive Brother 2 Bill Alive Brother 3 Father Hans (Age 72) MD Mother Denesal (Age 89) Sister 1 Riaz [...] T Respiratory Rate 16 04/02/2022 1:37 PM MOPHEAD SEWER Oxygen Saturation 99% 05/28/2023 9:28 AM CDT Inhaled Oxygen Concentration - - Weight 92.8 kg (204 lb 9.6 oz) 05/28/2023 9:28 A M CDT Height 181 cm (5' 11.26) 02/26/2023 9:27 AM MOPHEAD SEWER Body Mass Index 28.33 02/26/2023 9:27 AM MOPHEAD SEWER Plan of Treatment Upcoming Encounters Date Type Department Care Team (Late st Contact Info) Description 08/31/2023 1:25 PM CDT Office Visit [facility] [address] [facility] [place] [address] Kevin Nelson MD [address] [place] [place] [address] Health Maintenance Due Date Last Done Comments [...] follow prescribed diet-diabetic Diet Yes Tiffanie Rondon, CURLING MACHINE OPERATOR - Patient checks glucose as directed and logs in log book Diet Yes Tiffanie Rondon CURLING MACHINE OPERATOR - HgbA1C goal less than 7 Result Component No Tiffanie Rondon RN Procedures Procedure Name Priority Date/Time Associated Diagnosis Comments SCAN-MRI INTERPRETATION 06/08/19 12:00 AM CDT SCAN-MRI INTERPRETATION 06/08/19 12:00 AM CDT SCAN-RADIOLOGY REPORT 06/01/2023 12:00 AM CDT URINE ALBUMIN TO CREATININE RATIO, RANDOM Routine 05/28/2023 10:50 AM CDT Type 2 diabetes mellitus with diabetic polyneuropathy, 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 Anatomical Region Laterality Modality Other Scanner OTHER * SCAN-RADIOLOGY REPORT (06/01/2023 12:00 AM CDT) Anatomical Region Laterality Modality Other Scanner OTHER * (ABNORMAL) URINE ALBUMIN TO CREATININE RATIO, RANDOM (05/28/2023 10:50 AM CDT) ALB RAND URINE 29.3 mg/L 05/28/2023 11:53 PM CDT [facility] CREATININE,URIN E 0.62 g/L 05/28/2023 11:53 PM CDT [facility] ALBUMIN TO CREATININE RATIO,RAND UR 47.3(H) <30.0 mg/g creat 05/28/2023 11:53 PM CDT [facility] Urine URINE SPECIMEN / Unknown Non-Blood / Unknown 05/28/2023 10:50 AM CDT 05/28/2023 11:22 AM CDT Narrative [facility] - 05/28/2023 11:53 PM CDT If Albumin to Creatinine Ratio is elevated, consider the following: ? Elevations seen with incipient nephropathy associated ?? with diabetes mellitus or hypertension. Stress, exercise,hematuria, ?? and urinary tract infection may also produce elevated results. If clinically indicated, confirm with ?24 Hour Albumin to Creatinine Ratio. ?? Kevin Nelson MD URINE Performing Organization Address City/[facility]/ZIP Co de Phone Number [facility] [address] [place] [address], [place] * HEMOGLOBIN (05/28/2023 9:19 AM CDT) HEMOGLOBIN 14.1 13.5 - 17.5 g/dL 05/28/2023 9:43 AM CDT [facility] MCV 90 80 - 100 fL 05/28/2023 9:43 AM CDT [facility] Blood BLOOD SPECIMEN / Unknown Venipuncture / Unknown 05/28/2023 9:19 AM CDT 05/28/2023 9:21 AM CDT Kevin Nelson MD HEMATOLOGY [facility] [address] [place] [address], * (ABNORMAL) HEMOGLOBIN A1C MONITORING (POCT) (05/28/2023 9:19 AM CDT) HEMOGLOBIN A1C MONITORING (POCT) 8.8(H) <=6.4 % 05/28/2023 9:29 AM CDT [facility] Blood BLOOD SPECIMEN / Unknown Venipuncture / Unknown 05/28/2023 9:19 AM CDT 05/28/2023 9:21 AM CDT Narrative [facility] - 05/28/2023 9:29 AM CDT [...] Anemias, Splenectomy ? Kevin Nelson MD CHEMISTRY [facility] [address] [place] [address], from Last 3 Months Advance Directives Documents on File Type Date Recorded Patient Roll Over Loader Expl anatmission hospital Healthcare Directive 2018 9:53 AM [facility] DIRECTIVE, [facility] Healthcare Directive 06/18/2011 11:13 AM Care Teams Distribution Manager Relationship Specialty Start Date End Date Kevin Nelson MD [address] [place] [address] PCP - General Family Practice 01/03/13 Sebastian Rene [address] [place] [address] Conference Organizer 04/19/12 Iris Manzano [address] [place] [address] Neurology 04/19/12
--- OUTSIDE RECORDS SUMMARY | 2023-08-19 07:36 | XMS_ITS | Encounter Summary ---
Author Organization [place] Address [address] [facility] [place] [address] Care Team Providers Care Financial Service Representative Name Role Phone System, Provider Not In Primary Care Provider Un available Clinic, [facility] Primary Care Provider Kevin Nelson MD Primary Care Provider Simon Gudino MD Unavailable Unavail able Ellen Govea PA-C Unavailable Unav ailable Franck Alfaro MD Unavailable [phone] Neetu Soria STAPLER HAND REGIONAL SALES MANAGER Unavailable Franck Alfaro MD Unavailable [phone] Neetu Soria STAPLER HAND REGIONAL SALES MANAGER Unavailable [phone] Encounter Details Date Type Department Care Team (Late st Contact Info) Description 04/28/2007 Office Visit-[facility] [address] [place] [phone] Simon Gudino MD Social History Tobacco Use [...] old Referring Physician: KRYSTLE LEROY Referring Clinic: [facility] CURRENT DIAGNOSES 1. 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 INTEGUMENTARY rosacea EYES wears eye glasses/contact lenses, cataracts EARS, NOSE, THROAT, MOUTH denies any hearing loss, epistaxis, hoarseness or difficulty speaking. RESPIRATORY productive cough, dyspnea, snoring, [facility] last week with influenza type B [...] on filedocumented in this encounter Care Teams Financial Service Representative Relationship Specialty Start Date End Date System, Provider Not In PCP - General Clinic 07/26/13 10/12/13 [facility] [address] [place] [address] PCP - General 10/13/13 04/16/14 Kevin Nelson MD [address] [place] [address] PCP - General 04/17/14 Simon Gudino MD Assigned Heart and Vascular Provider 12/16/19 05/08/20 Ellen Govea PA-C Assigned Heart and Vascular Provider 05/09/20 03/16/21 Franck Alfaro MD [address] [place] [id number] Assigned Heart and Vascular Provider 03/17/21 12/27/21 Neetu Soria, JENNA REGIONAL SALES MANAGER [address] [place] [phone] Assigned Heart and Vascular Provider 12/28/21 04/18/22 Franck Alfaro MD [address] [place] [address] Assigned Heart and Vascular Provider 04/19/22 06/27/22 Neetu Soria APRN REGIONAL SALES MANAGER [address] [place] [address] Assigned Heart and Vascular Provider 06/28/22 documented as of this encounter
--- OUTSIDE RECORDS SUMMARY | 2023-08-19 07:36 | XMS_ITS | Encounter Summary ---
Author Organization [place] Address [address] [facility] [place] [address] Care Team Providers Care Cloth Measurer Name Role Phone System, Provider Not In Primary Care Provider Un available Clinic, [facility] Primary Care Provider Kevin Nelson MD Primary Care Provider Simon Gudino MD Unavailable Unavail able Ellen Govea PA-C Unavailable Unav ailable Franck Alfaro MD Unavailable [phone] Neetu Soria AIR BRUSH DECORATOR ADMISSION NURSE COORDINATOR Unavailable [phone] Franck Alfaro MD Unavailable [phone] Neetu Soria AIR BRUSH DECORATOR ADMISSION NURSE COORDINATOR Unavailable [phone] Encounter Details Date Type Department Care Team (Late st Contact Info) Description 08/06/2007 Office Visit-[facility] [address] [place] [phone] Simon Gudino MD Social History Tobacco Use [...] old Referring Physician: ALTHEA CEE Referring Clinic: [facility] CURRENT DIAGNOSES 1. 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; Sexual Activity - sexually inactive; Residence - lives with ; Place of - [place]; Spouse's Occupation - retired; REVIEW OF SYSTEMS [...] on filedocumented in this encounter Care Teams Cloth Measurer Relationship Specialty Start Date End Date System, Provider Not In PCP - General Clinic 07/26/13 10/12/[address] [address] PCP - General 10/13/13 04/16/14 Kevin Nelson MD [address] [place] [address] PCP - General 04/17/14 Simon Gudino MD Assigned Heart and Vascular Provider 12/16/19 05/08/20 Ellen Govea PA-C Assigned Heart and Vascular Provider 05/09/20 03/16/21 Franck Alfaro MD [address] [place] [id number] Assigned Heart and Vascular Provider 03/17/21 12/27/21 Neetu Soria, JENNA ADMISSION NURSE COORDINATOR [address] [place] [address] Assigned Heart and Vascular Provider 12/28/21 04/18/22 Franck Alfaro MD [address] [place] [id number] Assigned Heart and Vascular Provider 04/19/22 06/27/22 Neetu Soria, JENNA ADMISSION NURSE COORDINATOR [address] [place] [id number] Assigned Heart and Vascular Provider 06/28/22 documented as of this encounter
--- OUTSIDE RECORDS SUMMARY | 2023-08-19 07:36 | XMS_ITS | Encounter Summary ---
Author Organization [place] Address [address] [facility] [place] [address] Care Team Providers Care Potato Chip Frier Name Role Phone System, Provider Not In Primary Care Provider Un available Clinic, [facility] Primary Care Provider Kevin Nelson MD Primary Care Provider Simon Gudino MD Unavailable Unavail able Ellen Govea-C Unavailable Unav ailable Franck Alfaro MD Unavailable [phone] Neetu Soria E LAYOUT MAN DYE REEL OPERATOR Unavailable Franck Alfaro MD Unavailable [phone] Yang Neetu E LAYOUT MAN DYE REEL OPERATOR Unavailable [phone] Encounter Details Date Type Department Care Team (Late st Contact Info) Description 01/20/2007 Office Visit-[facility] [address] [place] [address] Unknown, MD Josh Social History [...] Created by: Ellen Alejandre PA-C DATE: 01/20/2007 [id number] FOREST MADERA DATE OF : 1940 AGE: [age] years old Referring Physician: LEE ANN CEE Referring Clinic: [facility] CURRENT DIAGNOSES 1. - Hyperlipidemia, 272.4 2. [...] presented with an acute non-ST segment elevation [place] and was found to have a 90% [...] has been doing Cardiac Rehab out at [facility] without any difficulty. He seems to be [...] 1. Status post acute non-ST segment elevation W[place] for which he underwent angioplasty and stenting [...] [place]. Cc:Lee Ann Ignacio M.D. CONRADO Garcia Electronically signed by [facility], Emr Data Conversion at 07/07/2013 6:16 PM CDT documented in this encounter Plan of Treatment Not on file documented as of this encounter Visit Diagnoses Not on filedocumented in this encounter Care Teams Potato Chip Frier Relationship Specialty Start Date End Date System, Provider Not In PCP - General Clinic 07/26/13 10/12/13 [facility] [address] [facility], [place] [address] PCP - General 10/13/13 04/16/14 Kevin Nelson MD [address] [facility] [place] [address] PCP - General 04/17/14 Simon Gudino MD Assigned Heart and Vascular Provider 12/16/19 05/08/20 Ellen Govea, PA-C Assigned Heart and Vascular Provider 05/09/20 03/16/21 Franck Alfaro MD [address] [place] [address] Assigned Heart and Vascular Provider 03/17/21 12/27/21 Neetu Soria, LAYOUT MAN DYE REEL OPERATOR [address] [place] [address] Assigned Heart and Vascular Provider 12/28/21 04/18/22 Franck Alfaro MD [address] [place] [address] Assigned Heart and Vascular Provider 04/19/22 06/27/22 Neetu Soria, LAYOUT MAN DYE REEL OPERATOR [address] [place] [address] Assigned Heart and Vascular Provider 06/28/22 documented as of this encounter
[2023-08-19] MEDS: IPRAT-ALBUT 0.5-2.5 MG/3 ML NEB 1 NEB IH (07:48)
[2023-08-19] MEDS: METHYLPREDNISOLONE SOD SUCC 62.5 MG/ML (125) 60 MG IVP (07:48)
[2023-08-19 08:04] LABS: Basophils Absolute Auto 0.02 K/uL (0.00-0.30); Basophils Percent Auto 0.3 % (0.0-3.0); Eosinophils Absolute Auto 0.15 K/uL (0.00-0.50); Eosinophils Percent Auto 2.1 % (0.0-7.0); Hematocrit 34.8 % (37.0-53.0); Hemoglobin* 12.1 gm/dL (13.5-17.5); Immature Granulocytes Abs Auto 0.02 K/uL (0.00-0.30); Immature Granulocytes Pct Auto 0.3 %; Lymphocytes Absolute Auto 2.03 K/uL (0.90-2.90); Mean Corpuscular HGB Conc 35 gm/dL (32-36); Mean Corpuscular Hemoglobin 31 pg (26-34); Mean Corpuscular Volume 89 fL (80-100); Monocytes Percent Auto 9.5 % (0.0-11.0); Neutrophils Absolute Auto 4.34 K/uL (1.7-7.0); Neutrophils Percent Auto 59.8 % (42.0-72.0); Platelet Count* 128 K/uL (140-440); RDW Coefficient of Variation % 12.5 % (11.5-15.5); Red Blood Count 3.91 m/uL (4.30-5.90); White Blood Count* 7.25 K/uL (4.50-11.00)
[2023-08-19 08:22] LABS: PCR FLU A Negative PCR FLU A (Negative); PCR FLU B Negative PCR FLU B (Negative); PCR RSV Negative PCR RSV (Negative); SARS PCR* Negative SARS-CoV-2 (Negative)
[2023-08-19 08:24] LABS: Albumin* 4.2 g/dL (3.3-5.0); Chloride* 102 mmol/L (96-114); Potassium* 4.2 mmol/L (3.6-5.1); Sodium* 139 mmol/L (135-149)
[2023-08-19] MEDS: DOXYCYCLINE HYCLATE 100 MG PO (08:24)
[2023-08-19 08:26] LABS: Bilirubin Total* 0.8 mg/dL (0.1-1.5); Creatinine* 1.2 mg/dL (0.5-1.5); Est. Creatinine Clearance* 48.81; Estimated Glomerular Filt Rate 60 ml/min
[2023-08-19 08:27] LABS: Alanine Aminotransferase* 22 U/L (4-50); Alkaline Phosphatase* 63 U/L (40-150); Anion Gap 6 mEq/L (7-15); Aspartate Amino Transferase* 27 U/L (12-35); Blood Urea Nitrogen* 24 mg/dL (7-30); Carbon Dioxide* 31 mmol/L (20-32); Total Protein* 6.7 g/dL (6.0-8.3)
[2023-08-19 08:28] LABS: Calcium* 8.5 mg/dL (8.4-10.6); Glucose* 224 mg/dL (60-115)
[2023-08-19 08:30] LABS: C Reactive Protein* 2.4 mg/dL (0.5-1.0)
[2023-08-19 08:34] LABS: Slide Review Reflex No
[2023-08-19 08:41] LABS: Troponin, Point-of-Care* 0.01 ng/ml (0.01-0.04)
[2023-08-19 08:44] LABS: Procalcitonin* 0.07 ng/mL (<0.50)
[2023-08-19 08:58] LABS: NT Pro B Type NatriureticPept* 139 pg/mL
== END 2023-08-19 09:19 | disposition home or self-care (01) ==
PROVIDERS: Emergency Provider Family Medicine; PCP Surgery
DX: J44.1 Chronic obstructive pulmonary disease with (acute) exacerbation (principal)
CPT/HCPCS: 36415; 71046; 80053; 83880; 84145; 84484; 85025; 86140; 87631; 94640; 96374; 96376; 99284; A9270; J2919

== ENCOUNTER 2024-04-21 09:19 | Outpatient (CLI) | payer OTHER, SELFPAY | END 2024-04-21 09:20 | disposition home or self-care (01) | LOC: AMB 04-22 09:26 | PROVIDERS: PCP Surgery; Visit Provider Emergency Medicine | DX: R06.09 Other forms of dyspnea (principal) | CPT/HCPCS: A0425; A0427 ==

== ENCOUNTER 2024-11-13 17:33 | Outpatient (CLI) | payer MEDICARE, SELFPAY | END 2024-11-13 17:34 | disposition home or self-care (01) | LOC: AMB 11-14 14:44 | PROVIDERS: PCP Surgery; Visit Provider Student in an Organized Health Care Education/Training Program | DX: S79.911A Unspecified injury of right hip, initial encounter (principal); W01.0XXA Fall on same level from slipping, tripping and stumbling without subsequent striking against object, initial encounter; Y92.007 Garden or yard of unspecified non-institutional (private) residence as the place of occurrence of the external cause | CPT/HCPCS: A0425; A0427 ==

== ENCOUNTER 2024-11-13 18:14 | Inpatient (IN) | payer MEDICARE, SELFPAY ==
[2024-11-13] VITALS (7 sets, daily range): BP systolic 181–200; BP diastolic 70–99; PULSE 63–85; RESP 15–18; TEMP 36.3–36.6; O2SAT 92–98
--- OUTSIDE RECORDS SUMMARY | 2024-11-13 18:17 | XMS_ITS | Encounter Summary ---
Author Organization [place] Address [address] [place] [address] Care Team Providers Care Mica Paster Name Role Phone System, Provider Not In Primary Care Provider Un available [facility], [facility] Primary Care Provider Kevin Nelson MD Primary Care Provider [phone] Simon Gudino MD Unavailable Unavail able Ellen Govea PA-C Unavailable Franck Alfaro MD Unavailable Unavailab leigh Soria, July E PROPERTY AND SUPPLY OFFICER SERVICE CENTER ASSISTANT Unavailable [phone] Franck Alfaro MD Unavailable Unavailab leigh Soria, July E PROPERTY AND SUPPLY OFFICER SERVICE CENTER ASSISTANT Unavailable [phone] Franck Alfaro MD Unavailable Unavailab leigh Soria, July E PROPERTY AND SUPPLY OFFICER SERVICE CENTER ASSISTANT Unavailable [phone] Marky Blum MD Unavailable Un available Encounter Details Date Type Department Care Team (Late st Contact Info) Description 01/20/2007 Office Visit-[facility] [address] [place] [address] Unknown, Doctor, Social History Tobacco Use Types Packs/Day Years Used Date Smoking Tobacco: Never Assessed Sex and Gender Information Value Date Recorded Sex Assigned at Not on file Legal Sex Male 4:49 AM REAL ESTATE PORTFOLIO MANAGER Gender Identity Not on file Sexual Orientation Not on file documented as of this encounter Progress Notes * Unknown, Doctor, - 01/21/2007 12:26 PM CST Progress Note Created by: Ellen Alejandre PA-C DATE: 01/20/2007 [id number] FOREST MADERA DATE OF : 1940 AGE: [age] years old Referring Physician: LEE ANN CEE Referring Clinic: [facility] CURRENT DIAGNOSES 1. - Hyperlipidemia, 272.4 2. [...] a delightful gentleman who presents to the [place] [facility] today for a follow up visit regarding his recent hospitalization. As you recall, he presented with an acute non-ST segment elevation [place] and was found to have a 90% [...] has been doing Cardiac Rehab out at [facility] without any difficulty. He seems to [...] 1. Status post acute non-ST segment elevation [place] for which he underwent angioplasty and stenting [...] on filedocumented in this encounter Care Teams Mica Paster Relationship Specialty Start Date End Date System, Provider Not In PCP - General Clinic 07/26/13 10/12/13 [facility], [facility] [address] [place] [address] PCP - General 10/13/13 04/16/14 Kevin Nelson MD [address] [place] [address] PCP - General 04/17/14 Simon Gudino MD Assigned Heart and Vascular Provider 12/16/19 05/08/20 Ellen Govea PA-C [address] [place] [address] Assigned Heart and Vascular Provider 05/09/20 03/16/21 Franck Alfaro MD Assigned Heart and Vascular Provider 03/17/21 12/27/21 Neetu Soria, JENNA SERVICE CENTER ASSISTANT [address] [place] [address] Assigned Heart and Vascular Provider 12/28/21 04/18/22 Franck Alfaro MD [address] [place] [address] Assigned Heart and Vascular Provider 04/19/22 06/27/22 Neetu Soria, JENNA SERVICE CENTER ASSISTANT [address] [place] [address] Assigned Heart and Vascular Provider 06/28/22 01/15/24 Franck Alfaro MD Assigned Heart and Vascular Provider 04/17/24 06/14/24 Neetu Soria, PROPERTY AND SUPPLY OFFICER [facility] [address] [place] [address] Assigned Heart and Vascular Provider 06/15/24 09/13/24 Marky Blum MD Assigned Heart and Vascular Provider 09/14/24 documented as of this encounter
--- OUTSIDE RECORDS SUMMARY | 2024-11-13 18:17 | XMS_ITS | Encounter Summary ---
Author Organization [place] Address [address] [facility] [place] [address] Care Team Providers Care Compliance Consultant Name Role Phone System, Provider Not In Primary Care Provider Un available [facility], [facility] Primary Care Provider Kevin Nelson MD Primary Care Provider [phone] Simon Gudino MD Unavailable Unavail able Ellen Govea PA-C Unavailable Franck Alfaro MD Unavailable Unavailab leigh Soria, July E SEAFOOD PACKER MARKET DEVELOPER Unavailable [phone] Franck Alfaro MD Unavailable Unavailab leigh Soria, July E SEAFOOD PACKER MARKET DEVELOPER Unavailable [phone] Franck Alfaro MD Unavailable Unavailab leigh Soria, July E SEAFOOD PACKER MARKET DEVELOPER Unavailable [phone] Marky Blum MD Unavailable Un available Encounter Details Date Type Department Care Team (Late st Contact Info) Description 08/06/2007 Office Visit-[facility] [address] [place] [address] Simon Gudino MD Social History Tobacco Use Types Packs/Day Years Used Date Smoking Tobacco: Never Assessed Sex and Gender Information Value Date Recorded Sex Assigned at Not on file Legal Sex Male 4:49 AM POWDERED SUGAR SUPERVISOR Gender Identity Not on file Sexual Orientation Not on file documented as of this encounter Progress Notes * Simon Gudino MD - 08/10/2007 11:02 AM CDT Progress Note Created by: Simon Gudino M.D. DATE: 08/06/2007 PRATIK MADERA DATE OF : 1940 AGE: [age] years old Referring Physician: ALTHEA CEE Referring Clinic: [facility] CURRENT DIAGNOSES 1. - CAD, 414.00 2. 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; Sexual Activity - sexually inactive; Residence - lives with ; Place of - [place]; Spouse's Occupation - retired; REVIEW OF SYSTEMS [...] on filedocumented in this encounter Care Teams Compliance Consultant Relationship Specialty Start Date End Date System, Provider Not In PCP - General Clinic 07/26/13 10/12/13 [facility] [address] [place] [address] PCP - General 10/13/13 04/16/14 Kevin Nelson MD 1400 [place] [address] PCP - General 04/17/14 Simon Gudino MD Assigned Heart and Vascular Provider 12/16/19 05/08/20 Ellen Govea PA-C [address] [place] [address] Assigned Heart and Vascular Provider 05/09/20 03/16/21 Franck Alfaro MD Assigned Heart and Vascular Provider 03/17/21 12/27/21 Neetu Soria, SEAFOOD PACKER MARKET DEVELOPER [address] [place] [address] Assigned Heart and Vascular Provider 12/28/21 04/18/22 Franck Alfaro MD [address] [place] [address] Assigned Heart and Vascular Provider 04/19/22 06/27/22 Neetu Sroia, SEAFOOD PACKER MARKET DEVELOPER [address] [place] [address] Assigned Heart and Vascular Provider 06/28/22 01/15/24 Franck Alfaro MD Assigned Heart and Vascular Provider 04/17/24 06/14/24 Neetu Soria, SEAFOOD PACKER MARKET DEVELOPER [address] [place] [address] Assigned Heart and Vascular Provider 06/15/24 09/13/24 Marky Blum MD Assigned Heart and Vascular Provider 09/14/24 documented as of this encounter
--- OUTSIDE RECORDS SUMMARY | 2024-11-13 18:17 | XMS_ITS | Encounter Summary ---
Author Organization [place] Address [address] [place] [address] Care Team Providers Care Paper Roll Machine Operator Name Role Phone System, Provider Not In Primary Care Provider Un available [facility], [facility] Primary Care Provider Kevin Nelson MD Primary Care Provider Simon Gudino MD Unavailable Unavail able Ellen Govea PA-C Unavailable [phone] Franck Alfaro MD Unavailable Unavailab leigh Soria, July E OFFICE SERVICES MANAGER DECORATING SUPERVISOR Unavailable [phone] Franck Alfaro MD Unavailable Unavailab leigh Soria, July E OFFICE SERVICES MANAGER DECORATING SUPERVISOR Unavailable [phone] Franck Alfaro MD Unavailable Unavailab leigh Soria, July E OFFICE SERVICES MANAGER DECORATING SUPERVISOR Unavailable [phone] Marky Blum MD Unavailable Un available Encounter Details Date Type Department Care Team (Late st Contact Info) Description 01/12/2012 Office Visit-[facility] [address] [place] [address] Unknown, Doctor, Social History Tobacco Use Types Packs/Day Years Used Date Smoking Tobacco: Never Assessed Sex and Gender Information Value Date Recorded Sex Assigned at Not on file Legal Sex Male 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 - CAD, 414.00 2. - Hypertension, benign, 401.1 3. Shortness of breath, 786.05 4. PTCA, V45.82 5. ME-S/P Anterior, 412 6. - Hyperlipidemia, 272.4 ALLERGIES [...] delightful 71-year-old gentleman who presents to the [facility] today for a [...] Also, a stress echocardiogram was done at [facility] showing noevidence of ischemia or infarction. 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; Sexual Activity- sexually inactive; Residence [...] on filedocumented in this encounter Care Teams Paper Roll Machine Operator Relationship Specialty Start Date End Date System, Provider Not In PCP - General Clinic 07/26/13 10/12/[address] [address] PCP - General 10/13/13 04/16/14 Kevin Nelson MD [address] [place] [address] PCP - General 04/17/14 Simon Gudino MD Assigned Heart and Vascular Provider 12/16/19 05/08/20 Ellen Govea PA-C [address] [place] [address] Assigned Heart and Vascular Provider 05/09/20 03/16/21 Franck Alfaro MD Assigned Heart and Vascular Provider 03/17/21 12/27/21 Neetu Soria, OFFICE SERVICES MANAGER DECORATING SUPERVISOR [address] [place] [address] Assigned Heart and Vascular Provider 12/28/21 04/18/22 Franck Alfaro MD [address] [place] [address] Assigned Heart and Vascular Provider 04/19/22 06/27/22 Neetu Soria, OFFICE SERVICES MANAGER DECORATING SUPERVISOR [address] [place] [address] Assigned Heart and Vascular Provider 06/28/22 01/15/24 Franck Alfaro MD Assigned Heart and Vascular Provider 04/17/24 06/14/24 Neetu Soria, OFFICE SERVICES MANAGER DECORATING SUPERVISOR [address] [place] [address] Assigned Heart and Vascular Provider 06/15/24 09/13/24 Marky Blum MD Assigned Heart and Vascular Provider 09/14/24 documented as of this encounter
--- OUTSIDE RECORDS SUMMARY | 2024-11-13 18:17 | XMS_ITS | Encounter Summary ---
Author Organization [place] Address [address] [facility] [place] [address] Care Team Providers Care Cupola Tender Helper Name Role Phone System, Provider Not In Primary Care Provider Un available [facility], [facility] Primary Care Provider Kevin Nelson MD Primary Care Provider Simon Gudino MD Unavailable Unavail able Ellen Govea PA-C Unavailable Franck Alfaro MD Unavailable Unavailab leigh Soria, July E TENTER FRAME BACK TENDER HOOF TRIMMER Unavailable [phone] Franck Alfaro MD Unavailable Unavailab leigh Soria, July E TENTER FRAME BACK TENDER HOOF TRIMMER Unavailable [phone] Franck Alfaro MD Unavailable Unavailab leigh Soria, July E TENTER FRAME BACK TENDER HOOF TRIMMER Unavailable [phone] Marky Blum MD Unavailable Un available Encounter Details Date Type Department Care Team (Late st Contact Info) Description 05/21/2010 Office Visit-[facility] [address] [place] [address] Simon Gudino MD Social History Tobacco Use Types Packs/Day Years Used Date Smoking Tobacco: Never Assessed Sex and Gender Information Value Date Recorded Sex Assigned at Not on file 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 DATE: 05/21/2010 FOREST MADERA DATE OF : 1940 AGE: [age] years old Referring Physician: KRYSTLE CARLOS CURRENT DIAGNOSES 1. - Chest Pain Precordial, 786.51 2. FL-S/P Anterior, 412 3. PTCA, V45.82 4. - [...] was referred from the Emergency Room at [facility] after a recent episode of chest pain. This gentleman is status post a non-ST elevation FL in 2006 with subsequent LAD stenting. He [...] prior to this and was living on [facility]. He was started on omeprazole 11/ weeks ago and has had no further heartburn since that time. 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 2. History of an anterior FL. Normalization of his ejection fraction following LAD [...] on filedocumented in this encounter Care Teams Cupola Tender Helper Relationship Specialty Start Date End Date System, Provider Not In PCP - General Clinic 07/26/13 10/12/13 [facility] [address] [place] [address] PCP - General 10/13/13 04/16/14 Kevin Nelson MD [address] [place] [address] PCP - General 04/17/14 Simon Gudino MD Assigned Heart and Vascular Provider 12/16/19 05/08/20 Ellen Govea PA-C [address] [place] [address] Assigned Heart and Vascular Provider 05/09/20 03/16/21 Franck Alfaro MD Assigned Heart and Vascular Provider 03/17/21 12/27/21 Neetu Soria, TENTER FRAME BACK TENDER HOOF TRIMMER [address] [place] [address] Assigned Heart and Vascular Provider 12/28/21 04/18/22 Franck Alfaro MD [address] [place] [address] Assigned Heart and Vascular Provider 04/19/22 06/27/22 Neetu Soria, JENNA HOOF TRIMMER [address] [place] [address] Assigned Heart and Vascular Provider 06/28/22 01/15/24 Franck Alfaro MD Assigned Heart and Vascular Provider 04/17/24 06/14/24 Neetu Soria, JENNA HOOF TRIMMER [address] [place] [address] Assigned Heart and Vascular Provider 06/15/24 09/13/24 Marky Blum MD Assigned Heart and Vascular Provider 09/14/24 documented as of this encounter
--- OUTSIDE RECORDS SUMMARY | 2024-11-13 18:17 | XMS_ITS | Encounter Summary ---
Author Organization [place] Address [address] [facility] [place] [address] Care Team Providers Care Helpdesk Technician Name Role Phone System, Provider Not In Primary Care Provider Un available [facility], [facility] Primary Care Provider Kevin [place] MD Primary Care Provider Simon Gudino MD Unavailable Unavail able Ellen Govea PA-C Unavailable [phone] Franck Aflaro MD Unavailable Unavailab leigh Soria, July E DIE SETTER JEWELRY SETTER Unavailable [phone] Franck Alfaro MD Unavailable Unavailab leigh Soria, July E DIE SETTER JEWELRY SETTER Unavailable [phone] Franck Alfaro MD Unavailable Unavailab leigh Soria, July E DIE SETTER JEWELRY SETTER Unavailable [phone] Marky Blum MD Unavailable Un available Encounter Details Date Type Department Care Team (Late st Contact Info) Description 07/25/2008 Office Visit-[facility] [address] [place] [address] Simon Gudino MD Social History Tobacco Use Types Packs/Day Years Used Date Smoking Tobacco: Never Assessed Sex and Gender Information Value Date Recorded Sex Assigned at Not on file Legal Sex Male 4:49 AM MARKETING PROGRAM COORDINATOR Gender Identity Not on file Sexual Orientation Not on file documented as of this encounter Progress Notes * Simon Gudino MD - 07/27/2008 2:42 PM CDT Progress Note Created by: Simon Gudino M.D. DATE: 07/25/2008 FOREST MADERA DATE OF : 1940 AGE: [age] years old Referring Physician: KRYSTLE LEROY [facility] CURRENT DIAGNOSES 1. - CAD, 414.00 2. PTCA, V45.82 3. PR-S/P Anterior, 412 4. - Hyperlipidemia, 272.4 5. [...] the chest pain he had with his PR and it resolves with rest. 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; Sexual Activity - sexually inactive; [...] on filedocumented in this encounter Care Teams Helpdesk Technician Relationship Specialty Start Date End Date System, Provider Not In PCP - General Clinic 07/26/13 10/12/13 [facility], [facility] [address] [place] [address] PCP - General 10/13/13 04/16/14 Kevin Nelson MD [address] [place] [address] PCP - General 04/17/14 Simon Gudino MD Assigned Heart and Vascular Provider 12/16/19 05/08/20 Ellen Govea PA-C [address] [place] [address] Assigned Heart and Vascular Provider 05/09/20 03/16/21 Franck Alfaro MD Assigned Heart and Vascular Provider 03/17/21 12/27/21 Neetu Soria, DIE SETTER JEWELRY SETTER [address] [place] [address] Assigned Heart and Vascular Provider 12/28/21 04/18/22 Franck Alfaro MD [address] [place] [address] Assigned Heart and Vascular Provider 04/19/22 06/27/22 Neetu Soria, JENNA JEWELRY SETTER [address] [place] [address] Assigned Heart and Vascular Provider 06/28/22 01/15/24 Franck Alfaro MD Assigned Heart and Vascular Provider 04/17/24 06/14/24 Neetu Soria APRN [facility] [address] [place] [address] Assigned Heart and Vascular Provider 06/15/24 09/13/24 Marky Blum MD Assigned Heart and Vascular Provider 09/14/24 documented as of this encounter
--- OUTSIDE RECORDS SUMMARY | 2024-11-13 18:17 | XMS_ITS | Encounter Summary ---
Author Organization [place] Address [address] [place] [address] Care Team Providers Care Metal Moulder'S Assistant Name Role Phone System, Provider Not In Primary Care Provider Un available [facility], [facility] Primary Care Provider Kevin [place] MD Primary Care Provider Simon Gudino MD Unavailable Unavail able Ellen Govea PA-C Unavailable Franck Alfaro MD Unavailable Unavailab leigh Soria, July E PHP ARCHITECT MARKETING TEAM LEAD Unavailable [phone] Franck Alfaro MD Unavailable Unavailab leigh Soria, July E PHP ARCHITECT MARKETING TEAM LEAD Unavailable [phone] Franck Alfaro MD Unavailable Unavailab leigh Soria, July E PHP ARCHITECT MARKETING TEAM LEAD Unavailable [phone] Marky Blum MD Unavailable Un available Encounter Details Date Type Department Care Team (Late st Contact Info) Description 12/01/2011 Office Visit-[facility] [address] [place] [address] Unknown, Doctor, Social History Tobacco Use Types Packs/Day Years Used Date Smoking Tobacco: Never Assessed Sex and Gender Information Value Date Recorded Sex Assigned at Not on file Legal Sex Male 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 Gender Identity Not on file Sexual Orientation Not on file documented as of this encounter Progress Notes * Unknown, Doctor, - 12/03/2011 11:59 AM CDT Progress Note Created by: Ellen Alejandre PA-C DATE: 12/01/2011 [id number] FOREST MADERA DATE OF : 1940 AGE: [...] delightful 71-year-old gentleman who presents to the [facility] today for his annual [...] also had a stress echocardiogram done at [facility] the [facility], which was normal with [...] Use - always; 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; Sexual Activity- sexually inactive; Residence - lives with ; Place of - [place]; Spouse's Occupation -retired; PHYSICAL EXAMINATION VITAL SIGNS: [...] on filedocumented in this encounter Care Teams Metal Moulder'S Assistant Relationship Specialty Start Date End Date System, Provider Not In PCP - General Clinic 07/26/13 10/12/13 [facility], [facility] [address] [place] [address] PCP - General 10/13/13 04/16/14 Kevin Nelson MD [address] [place] [address] PCP - General 04/17/14 Simon Gudino MD Assigned Heart and Vascular Provider 12/16/19 05/08/20 Ellen Govea PA-C [address] [place] [address] Assigned Heart and Vascular Provider 05/09/20 03/16/21 Franck Alfaro MD Assigned Heart and Vascular Provider 03/17/21 12/27/21 Neetu Soria, PHP ARCHITECT MARKETING TEAM LEAD [address] [place] [address] Assigned Heart and Vascular Provider 12/28/21 04/18/22 Franck Alfaro MD [address] [place] [address] Assigned Heart and Vascular Provider 04/19/22 06/27/22 Neetu Soria, PHP ARCHITECT MARKETING TEAM LEAD [address] [place] [address] Assigned Heart and Vascular Provider 06/28/22 01/15/24 Franck Alfaro MD Assigned Heart and Vascular Provider 04/17/24 06/14/24 Neetu Soria APRN [facility] [address] [place] [address] Assigned Heart and Vascular Provider 06/15/24 09/13/24 Marky Blum MD Assigned Heart and Vascular Provider 09/14/24 documented as of this encounter
--- OUTSIDE RECORDS SUMMARY | 2024-11-13 18:17 | XMS_ITS ---
Author Organization [facility] Address [address] [place] [address] Care Team Providers Care Coremaker Floor Name Role Phone Kevin Nelson MD Primary Care Provider [phone] Marky Blum MD Unavailable Un available Active Problems Problem Noted Date Diagnosed Date Acute kidney failure, unspecified 04/24/2024 PAD (peripheral artery disease) 04/18/2022 Peripheral edema 03/07/2021 Abnormal findings on diagnos tic imaging of heart and coronary circulation 07/11/2020 Overview (07/11/2020): Added automatically from request for surgery [id number] Pre-syncope 08/07/2019 Status post coronary angiogram 03/02/2019 MONCADA (dyspnea on exertion) 02/25/2019 Overview (02/25/2019): Added automatically from request for surgery [id number] Unstable angina 11/15/2016 Chest pain 08/08/2015 Coronary artery disease invo lving wiyot coronary artery of wiyot heart with unstable angina pectoris Overview (08/12/2013): NSTEMI & cath 2006: SHERI to LAD 07/2013 - Complex left main bifurcation stenting with drug-eluting stent Primary hypertension Hyperlipidemia LDL goal <70 GERD (gastroesophageal reflux disease) Type 2 diabetes mellitus wit hout complication, without long-term current use of insulin Peripheral neuropathy Malignant basal cell neoplasm of skin Overview (06/29/2014): back Do you wish to do the replacement in the background? yes Diverticulosis Pulmonary nodules Overview (07/22/2013): CT chest 2007, no change Current Treatment and Therapy Plans No current plan information found. Past Treatment and Therapy Plans No past plan information found. Lifetime Dose Tracking * Chemical Lifetime Dose Automatic Entry Manual Entr y Total Air Kerma 1,878.2 mGy 0 mGy 1,878.2 mGy Aleksander DAP 226,718 mGy-cm2 0 mGy-cm2 226,718 mGy- cm2 Resolved Problems Problem Noted Date Diagnosed Date Resolved Date Coronary artery disease of n ative artery of wiyot heart with stable angina pectoris 07/11/2020 03/07/2021 Overview (07/11/2020): Added automatically from request for surgery [id number] Left subscapular pain 12/25/20132013 Dyspnea on exertion 12/25/2013 12/27/19 14
--- OUTSIDE RECORDS SUMMARY | 2024-11-13 18:17 | XMS_ITS | Clinical Summary ---
Author Organization [employer] [facility] Address [address] [place] [address] Care Team Providers Care Steaming Machine Operator Name Role Phone Sebastian Rene Unavailable [phone] Iris Manzano Unavailable Unavailable Kevin Nelson MD Primary Care Provider [phone] Allergies Active Allergy Reactions Criticality Noted Date Comments Atenolol Bradycardia 12/08/2006 & Fatigue Atorvastatin Myalgia 12/08/2006 Lisinopril Cough 12/08/2006 Metoprolol *Unknown 12/30/2013 headaches Medications omeprazole (PRILOSEC) 20 mg capsule Take 1 capsule by mouth once daily before a meal. 0 2 Active cyanocobalamin (VITAMIN B-12) 1,000 mcg tabletIndications :B12 deficiency Take 1 tablet by mouth once daily. 90 tablet 3 9 Active TRUE METRIX GLUCOSE TEST STRIP stripIndications: Newly diagnosed diabetes (HC) TEST TWICE DAILY 200 Each 3 1 Active Catheter (Self-Cath) 14-16 Fr- miscIndications:A tonic bladder Self cath as needed up to 4 times per day 360 Each 3 3 Active clopidogreL (PLAVIX) 75 mg tabletIndications :Coronary artery disease, unspecified vessel or lesion type, unspecified whether angina present, unspecified whether [place] or transplanted heart TAKE 1 TABLET(75 MG) BY MOUTH EVERY DAY 90 Tablet 3 4 Active glipiZIDE (GLUCOTROL) 5 mg tabletIndications :Type 2 diabetes mellitus with diabetic polyneuropathy, without long-term current use of insulin (HC) Take 1 Tablet (5 mg) by mouth two times daily before meals. 180 Tablet 3 4 Active isosorbide mononitrate (IMDUR) 30 mg extended release tablet 24 HourIndications:C oronary artery disease, unspecified vessel or lesion type, unspecified whether angina present, unspecified whether [place] or transplanted heart Take 1 Tablet (30 mg) by mouth once daily. 90 Tablet 3 4 Active metFORMIN (GLUCOPHAGE) 1,000 mg tabletIndications :Type 2 diabetes mellitus with diabetic polyneuropathy, without long-term current use of insulin (HC) Take 1 Tablet (1,000 mg) by mouth two times daily with meals. 180 Tablet 3 4 Active ranolazine (RANEXA) 500 mg Controlled-Releas e tabletIndications :Coronary artery disease, unspecified vessel or lesion type, unspecified whether angina present, unspecified whether [place] or transplanted heart Take 1 Tablet (500 mg) by mouth two times daily. 180 Tablet 3 4 Active rosuvastatin (CRESTOR) 20 mg tabletIndications :Coronary artery disease, unspecified vessel or lesion type, unspecified whether angina present, unspecified whether [place] or transplanted heart Take 1 Tablet (20 mg) by mouth once daily with evening meal. 90 Tablet 3 4 Active SITagliptin phosphate (JANUVIA) 100 mg tabletIndications :Type 2 diabetes mellitus with diabetic polyneuropathy, without long-term current use of insulin (HC) Take 1 Tablet (100 mg) by mouth once daily. 90 Tablet 3 4 Active diclofenac topical (VOLTAREN) 1 % gelIndications:Hi p pain, left Apply 4 g topically to affected area(s) four times daily. 100 g 4 Active nitroglycerin (NITROSTAT) 0.4 mg sublingual tabletIndications :Coronary artery disease, unspecified vessel or lesion type, unspecified whether angina present, unspecified whether [place] or transplanted heart DISSOLVE 1 TABLET UNDER TONGUE EVERY 5 MINUTES IF NEEDED FOR CHEST PAIN 25 Tablet 2 5 Active aspirin 81 mg cap Take by mouth. Active losartan 50 mg tabletIndications :Essential hypertension Take 1 Tablet (50 mg) by mouth two times daily. 5 Active albuterol HFA 90 mcg/actuation inhalerIndication s:MONCADA (dyspnea on exertion) Inhale 1-2 Puffs by mouth every 4 hours if needed for Shortness of Breath 1st choice. 3 Each 3 5 Active Active Problems Problem Noted Date Diagnosed Date CKD (chronic kidney disease) stage 3, GFR 30-59 ml/min 06/09/2024 Skin cancer 03/28/2022 Overview (04/25/2022): 02/11/2022:left shoulder BCC nodular and infiltrative types, Excised 04/24/2022 03/25/22: left medial upper back, nBCC: ED&C scheduled 04/08/22 with CONRADO Guillen 03/25/22: right druze, nBCC, Mohs done 04/25/[address] 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 Uses spiriva and combivent with some improvement. Not COPD per pulmonology. Benign prostatic hyperplasia 05/16/2015 Type 2 diabetes mellitus wit h diabetic polyneuropathy, without long-term current use of insulin 11/01/2014 Overview (11/01/2014): Started metformin 08/2014 Atonic bladder 12/30/2013 Overview (06/02/2016): Self catheterizes 3-4 times daily Unspecified hereditary and idiopathic peripheral neuropathy 03/10/2011 Overview (04/27/2015): Has seen Neuro - tried Neurontin, but didn't work Colon polyp 02/13/2011 Overview (03/26/2016): Colonoscopy 01/2011 polyps repeat in 3 years Colonoscopy 05/2013 polyps repeat in 3 years Colonoscopy 02/2016 multiple polyps repeat in 3 years ACP (advance care planning) 01/02/2011 Overview (06/11/2011): Patient has identified Health Care Agent(s): Yes Add Health Care Agents: Yes Health Care Agent(s): Primary Health Care Agent: Yamilex Madera Relationship: [phone] Cell Secondary Health Care Agent: Amanda Del Rio Relationship: daughter [phone] work Patient has Advance Care Plan Documents [...] immediate comfort. CAD (coronary artery disease) 12/24/2009 Overview (03/07/2024): Has had 6 stents placed in the past. Diverticulosis of colon (without mention of hemo rrhage) 02/02/2007 Unspecified essential hypertension 12/08/2006 Mixed hyperlipidemia 12/08/2006 Resolved Problems Problem Noted Date Diagnosed Date Resolved Date Chronic obstructive pulmonar y disease, unspecified COPD type 02/11/2022 02/11/2022 Memory loss 08/23/2012 06/02/2016 Overview (08/23/2012): Progressive over past 6 months: trouble recalling what he needs at the store; has not gotten lost. Emphysema 09/08/2011 06/02/2016 Routine General Medical Exam ination at a Health Care Facility 12/08/2006 09/02/2011 Overview (12/11/2008): flexible sigmoidoscopy 01/11/2002 colonoscopy 01/2008 recheck 3 yrs Special screening for malign ant neoplasm of prostate 12/08/2006 06/02/2016 pulmonary nodules 10/26/2006 06/02/2016 Overview (04/28/2007): CT Chest 04/21/2007: No Change & Recheck CT 1 yr Encounters Date Type Department Care Team Description 09/09/2024 Telephone [facility] [address] [place] [address] Kevin Nelson MD Results 09/05/2024 7:25 AM CDT Office Visit [facility] [address] [place] [address] Kevin Neslon MD Diabetes 09/05/2024 Travel from Last 3 Months Immunizations Immunization Administration Dates Next Due Amb Influenza, Inact (High-d ose) (Flu Clinic Only) 01/17/2015 COVID-19 vaccine (2threads NTGlowpoint 30mcg/0.3mL) PF MDV 12/13/2020,04/21/2020,03/31/2020 Influenza RIV4 (Age 18+ Year s) PRESERV FREE 11/24/2018 Influenza, High-dose Inactivated 12/14/2023,11/23,11/21/2013 Influenza, High-dose Quadriv alent Inactivated 11/17/2022,11/19/2021,11/13/2020 Influenza, [...] Name Comments Heart Disease Brother 1 Ricardo CO @ 54 yo; 2 more stents recently 03/2012 Diabetes Brother 3 Heart Disease Father Hans Hypertension Father Hans Stroke Father Hans Other Mother Denesal COPD Heart Disease Sister 1 Feb CO Anesthesia Problem No Family History Blood Disease No Family History Relation Name Status Comments Brother 1 Ricardo Alive Brother 2 Bill Alive Brother 3 Father Hans (Age 72) CO Mother Denesal (Age 89) Sister 1 Riaz [...] Answer Date Recorded PHQ-2 TOTAL SCORE 0 06/06/2024 Social Connections Answer Date Recorded Do you often feel lonely or isolated from those around you? 0 12/03/2023 Financial Resource Strain Answer Date R ecorded Difficulty of Paying Living Expenses 3 12/03/2023 Difficulty of Paying Living Expenses Not on file 12/03/2023 Food Insecurity Answer Date Recorded Do you worry your food will run out before you are able to buy more? 1 12/03/2023 Transportation Needs Answer Date Record ed Does lack of transportation keep you from medica l appointments? 1 12/03/2023 Does lack of transportation keep you from work, meetings or getting things that you need? 1 12/03/2023 Housing Stability Answer Date Recorded What is your housing situation today? 1 12/03/2023 Utilities Answer Date Recorded Do you have trouble paying f or utilities (for example, heat, electricity, water, phone)? 1 12/03/2023 Sex and Gender Information Value Date Recorded Sex Assigned at Not on file Legal Sex Male 6:07 AM CIVIL RIGHTS INVESTIGATOR Gender Identity Not on file Sexual Orientation Not on file Occupation Industry Job Start Date Job End Date Retired Not on file Not on file Not on file Obstetrics History Last Filed Vital Signs Vital Sign Reading Time Taken Comments Blood Pressure 145/75 09/05/2024 7:27 AM CDT Pulse 62 09/05/2024 7:27 AM CDT Temperature 36.6 C (97.9 F) 09/02/2021 6:00 PM CDT Respiratory Rate 16 04/02/2022 1:37 PM CIVIL RIGHTS INVESTIGATOR Oxygen Saturation 99% 09/05/2024 7:25 AM CDT Inhaled Oxygen Concentration - - Weight 94 kg (207 lb 3.2 oz) 09/05/2024 7:25 AM CDT Height 180.5 cm (5' 11.06) 06/06/2024 7:45 AM C DT Body Mass Index 28.85 06/06/2024 7:45 AM CDT Plan of Treatment Upcoming Encounters Date Type Department Care Team (Late st Contact Info) Description 12/09/2024 7:30 AM CDT Office Visit [facility] [address] [place] [address] Kevin Nelson MD [address] [place] [address] Health Maintenance Due Date Last Done Comments RSV vaccine for adults or (1 - 1-dose 75+ series) 2013 COVID-19 vaccine series ( season) 2024 12/13/2020, 04/21/2020, 03/31/2020 Influenza Vaccine (#1) 2024 , 12/06/2019, 11/24/2018, Additional history exists BMI (ht and wt on same day) for age 18+ 06/06/2025 06/06/2024, 02/26/2023, 11/12/2021, Additional history exists Depression screening for age 12+ 06/07/2025 06/07/2024, 06/06/2024, 02/26/2023, Additional history exists Medicare Wellness for age 65+ 06/07/2025 06/06/2024, 02/26/2023, 11/12/2021, Additional history exists Tetanus booster 11/17/2032 11/17/2022, 07/25, 08/18/2011, Additional history exists Pneumococcal series for age 50+ Completed 04/27/2015, 11/01/2003 Zoster (shingles) series for age 50+ Completed 01/27/2019, 11/24/2018, 12/08/2006 Hepatitis B series for 19+ Aged Out N o longer eligible based on patient's age to complete this topic Goals Goal Patient Goal Type Associated Problems Recent Progress Patient-Stated? Author DIET - Patient understands and will follow prescribed diet-diabetic Diet Yes Tiffanie Rondon RN DIABETES - Patient checks glucose as directed and logs in log book Diet Yes Tiffanie Rondon RN DIABETES - HgbA1C goal less than 7 Result Component No Tiffanie Rondon RN Procedures Procedure Name Priority Date/Time Associated Diagnosis Comments HEMOGLOBIN A1C MONITORING (POCT) Routine 09/05/2024 7:50 AM CDT Type 2 diabetes mellitus with diabetic polyneuropathy, without long-term current use of insulin (HC) BASIC METABOLIC PANEL Routine 09/05/2024 7:15 AM CDT Stage 3a chronic kidney disease (HC) CBC W PLT NO DIFF Routine 09/05/2024 7:1 5 AM CDT Iron deficiency anemia, unspecified iron deficiency anemia type from Last 3 Months Results * (ABNORMAL) POCT Hemoglobin A1C Monitoring (09/05/2024 7:50 AM CDT) POC HEMOGLOBIN A1C 7.5(H) <6.0 % OF TOTAL HGB [facility] Comment: Any point of care results exhibiting inconsistency with the patient's clinical status should be repeated using a different testing method. Blood BLOOD SPECIMEN / Unknown 09/05/2024 7:50 AM CDT 09/05/2024 7:50 AM CDT Kevin Nelson MD CHEMISTRY Final Resu lt [facility] [address] [place] [address], [facility] [address] [place] [address] * (ABNORMAL) CBC W PLT NO DIFF (09/05/2024 7:15 AM CDT) WHITE BLOOD CELL COUNT 6.3 3.8 - 10.8 Thousand/u L [facility] RED BLOOD CELL COUNT 3.98(L) 4.20 - 5.80 Million/uL [facility] HEMOGLOBIN 12.6(L) 13.2 - 17.1 g/dL [facility] HEMATOCRIT 38.6 38.5 - 50.0 % [facility] MCV 97.0 80.0 - 100.0 fL [facility] MCH 31.7 27.0 - 33.0 pg [facility] MCHC 32.6 32.0 - 36.0 g/dL [facility] Comment: For adults, a slight decrease in the calculated MCHC value (in the range of 30 to 32 g/dL) is most likely not clinically significant; however, it should be interpreted with caution in correlation with other red cell parameters and the patient's clinical condition. RDW 12.4 11.0 - 15.0 % [facility] PLATELET COUNT 125(L) 140 - 400 Thousand/u L [facility] MPV 8.9 7.5 - 12.5 fL [facility] Blood BLOOD SPECIMEN / Unknown 09/05/2024 7:15 AM CDT 09/05/2024 7:16 AM CDT Kevin Nelson MD HEMATOLOGY Final Resu lt [employer] [facility] [address] [place] [address], [place] [phone] [facility] [address] [place] [address] * (ABNORMAL) BASIC METABOLIC PANEL (09/05/2024 7:15 AM CDT) GLUCOSE 216(H) 65 - 99 mg/dL [facility] Comment: Fasting reference interval For someone without known diabetes, a glucose value >125 mg/dL indicates that they may have diabetes and this should be confirmed with a follow-up test. UREA NITROGEN (BUN) 14 7 - 25 mg/dL [facility] CREATININE 1.27(H) 0.70 - 1.22 mg/dL [facility] EGFR 55(L) > OR = 60 mL/min/1.7 3m2 [facility] BUN/CREATININE RATIO 11 6 - 22 (calc) [facility] SODIUM 140 135 - 146 mmol/L [facility] POTASSIUM 4.5 3.5 - 5.3 mmol/L [facility] CHLORIDE 105 98 - 110 mmol/L [facility] CARBON DIOXIDE 26 20 - 32 mmol/L [facility] ELECTROLYTE BALANCE 9 7 - 17 mmol/L (calc) [facility] CALCIUM 9.2 8.6 - 10.3 mg/dL [facility] Blood BLOOD SPECIMEN / Unknown 09/05/2024 7:15 AM CDT 09/05/2024 7:16 AM CDT us Kevin Nelson MD CHEMISTRY Final Resu lt Performing Organization Address City/[facility]/ZIP Co de Phone Number [employer] [facility] [address] [place] [address], [place] [phone] [facility] [address] [place] [address] from Last 3 Months Insurance MEDICARE PART A HB ONLY MEDICARE PART B HB ONLY [employer] MEDICARE ADVANTAGE MR Advance Directives Documents on File Type Date Recorded 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
--- OUTSIDE RECORDS SUMMARY | 2024-11-13 18:17 | XMS_ITS | Encounter Summary ---
Author Organization [place] Address [address] [facility] [place] [address] Care Team Providers Care Ship Captain Name Role Phone System, Provider Not In Primary Care Provider Un available [facility], [facility] Primary Care Provider Kevin Nelson MD Primary Care Provider [phone] Simon Gudino MD Unavailable Unavail able Ellen Govea PA-C Unavailable Franck Alfaro MD Unavailable Unavailab leigh Soria, July E TILE ROOFER PIGMENT MIXER Unavailable [phone] Franck Alfaro MD Unavailable Unavailab leigh Soria, July E TILE ROOFER PIGMENT MIXER Unavailable [phone] Franck Alfaro MD Unavailable Unavailab leigh Soria, July E TILE ROOFER PIGMENT MIXER Unavailable [phone] Marky Blum MD Unavailable Un available Encounter Details Date Type Department Care Team (Late st Contact Info) Description 04/28/2007 Office Visit-[facility] [address] [place] [address] Simon Gudino MD Social History Tobacco Use Types Packs/Day Years Used Date Smoking Tobacco: Never Assessed Sex and Gender Information Value Date Recorded Sex Assigned at Not on file Legal Sex Male 4:49 AM APPLICATION SUPPORT ADMINISTRATOR Gender Identity Not on file Sexual Orientation Not on file documented as of this encounter Progress Notes * Simon Gudino MD - 04/29/2007 12:40 PM CST Progress Note Created by: Simon Gudino M.D. DATE: 04/28/2007 PRATIK MADERA DATE OF : 1940 AGE: [age] years old Referring Physician: KRYSTLE LEROY Referring Clinic: [facility] CURRENT DIAGNOSES 1. - CAD, 414.00 2. 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 INTEGUMENTARY rosacea EYES wears eye glasses/contact lenses, cataracts EARS, NOSE, THROAT, MOUTH denies any hearing loss, epistaxis, hoarseness or difficulty speaking. RESPIRATORY productive cough, dyspnea, snoring, [facility] IN[facility] last week with influenza type B [...] on filedocumented in this encounter Care Teams Ship Captain Relationship Specialty Start Date End Date System, Provider Not In PCP - General Clinic 07/26/13 10/12/13 [facility] [address] [place], [place] [id number] PCP - General 10/13/13 04/16/14 Kevin Nelson MD [address] [place] [address] PCP - General 04/17/14 Simon Gudino MD Assigned Heart and Vascular Provider 12/16/19 05/08/20 Ellen Govea PA-C [address] [place] [address] Assigned Heart and Vascular Provider 05/09/20 03/16/21 Franck Alfaro MD Assigned Heart and Vascular Provider 03/17/21 12/27/21 Neetu Soria, TILE ROOFER PIGMENT MIXER [address] [place] [address] Assigned Heart and Vascular Provider 12/28/21 04/18/22 Franck Alfaro MD [address] [place] [address] Assigned Heart and Vascular Provider 04/19/22 06/27/22 Neetu Soria, TILE ROOFER PIGMENT MIXER [address] [place] [address] Assigned Heart and Vascular Provider 06/28/22 01/15/24 Franck Alfaro MD Assigned Heart and Vascular Provider 04/17/24 06/14/24 Neetu Soria, TILE ROOFER PIGMENT MIXER [address] [place] [address] Assigned Heart and Vascular Provider 06/15/24 09/13/24 Marky Blum MD Assigned Heart and Vascular Provider 09/14/24 documented as of this encounter
--- OUTSIDE RECORDS SUMMARY | 2024-11-13 18:17 | XMS_ITS | Encounter Summary ---
Author Organization [place] Address [address] [facility] [place] [address] Care Team Providers Care Rigging Supervisor Name Role Phone System, Provider Not In Primary Care Provider Un available [facility], [facility] Primary Care Provider Kevin Nelson MD Primary Care Provider [phone] Simon Gudino MD Unavailable Unavail able Ellen Govea PA-C Unavailable Franck Alfaro MD Unavailable Unavailab leigh Soria, July E CARDIAC RN CASHIERS BUSSERS FOOD RUNNERS Unavailable [phone] Franck Alfaro MD Unavailable Unavailab leigh Soria, July E CARDIAC RN CASHIERS BUSSERS FOOD RUNNERS Unavailable [phone] Franck Alfaro MD Unavailable Unavailab leigh Soria, July E CARDIAC RN CASHIERS BUSSERS FOOD RUNNERS Unavailable [phone] Marky Blum MD Unavailable Un available Encounter Details Date Type Department Care Team (Late st Contact Info) Description 08/16/2009 Office Visit-[facility] [address] [place] [address] Simon Gudino MD Social History Tobacco Use Types Packs/Day Years Used Date Smoking Tobacco: Never Assessed Sex and Gender Information Value Date Recorded Sex Assigned at Not on file Legal Sex Male 4:49 AM 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 DATE: 08/16/2009 [facility] DATE OF : 1940 AGE: [age] years old Referring Physician: KRYSTLE CARLOS CURRENT DIAGNOSES 1. - Angina Pectoris, 413.9 2. [place]-S/P Anterior, 412 3. PTCA, V45.82 4. 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 2. History of anterior WA with subsequent normalization of ejection fraction. He [...] on filedocumented in this encounter Care Teams Rigging Supervisor Relationship Specialty Start Date End Date System, Provider Not In PCP - General Clinic 07/26/13 10/12/13 [facility], [facility] [address] [place] [address] PCP - General 10/13/13 04/16/14 Kevin Nelson MD [address] [place] [address] PCP - General 04/17/14 Simon Gudino MD Assigned Heart and Vascular Provider 12/16/19 05/08/20 Ellen Govea PA-C [address] [place] [address] Assigned Heart and Vascular Provider 05/09/20 03/16/21 Franck Alfaro MD Assigned Heart and Vascular Provider 03/17/21 12/27/21 Neetu Soria, CARDIAC RN CASHIERS BUSSERS FOOD RUNNERS [address] [place] [address] Assigned Heart and Vascular Provider 12/28/21 04/18/22 Franck Alfaro MD [address] [place] [address] Assigned Heart and Vascular Provider 04/19/22 06/27/22 Neetu Soria, CARDIAC RN CASHIERS BUSSERS FOOD RUNNERS [address] [place] [address] Assigned Heart and Vascular Provider 06/28/22 01/15/24 rFanck Alfaro MD Assigned Heart and Vascular Provider 04/17/24 06/14/24 Neetu Soria, CARDIAC RN CASHIERS BUSSERS FOOD RUNNERS [address] [place] [address] Assigned Heart and Vascular Provider 06/15/24 09/13/24 Marky Blum MD Assigned Heart and Vascular Provider 09/14/24 documented as of this encounter
--- OUTSIDE RECORDS SUMMARY | 2024-11-13 18:17 | XMS_ITS | Encounter Summary ---
Author Organization [place] Address [address] [facility] [place] [address] Care Team Providers Care Slide Fastener Chain Assembler Name Role Phone System, Provider Not In Primary Care Provider Un available [facility], [facility] Primary Care Provider Kevin Nelson MD Primary Care Provider Simon Gudino MD Unavailable Unavail able Ellen Govea PA-C Unavailable Franck Alfaro MD Unavailable Unavailab leigh Soria, July E PACKAGING MATERIALS INSPECTOR DAMPPROOFER Unavailable [phone] Franck Alfaro MD Unavailable Unavailab leigh Soria, July E PACKAGING MATERIALS INSPECTOR DAMPPROOFER Unavailable [phone] Franck Alfaro MD Unavailable Unavailab leigh Soria, July E PACKAGING MATERIALS INSPECTOR DAMPPROOFER Unavailable [phone] Marky Blum MD Unavailable Un available Encounter Details Date Type Department Care Team (Late st Contact Info) Description 12/21/2009 Office Visit-[facility] [address] [place] [address] Simon Gudino MD Social History Tobacco Use Types Packs/Day Years Used Date Smoking Tobacco: Never Assessed Sex and Gender Information Value Date Recorded Sex Assigned at Not on file 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 DATE: 12/21/2009 [facility] DATE OF : 1940 AGE: [age] years old Referring Physician: KRYSTLE CARLOS CURRENT DIAGNOSES 1. - CAD, 414.00 2. PTCA, V45.82 3. [place]-S/P Anterior, 412 4. - Hyperlipidemia, 272.4 5. 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 I will then anticipate reporting through [facility]. 2.Coronary artery disease. He has done well during the three years with his IN with no change in his anatomy widely [...] on filedocumented in this encounter Care Teams Slide Fastener Chain Assembler Relationship Specialty Start Date End Date System, Provider Not In PCP - General Clinic 07/26/13 10/12/13 [facility], [address] [address] PCP - General 10/13/13 04/16/14 Kevin Nelson MD [address] [place] [address] PCP - General 04/17/14 Simon Gudino MD Assigned Heart and Vascular Provider 12/16/19 05/08/20 Ellen Govea PA-C [address] [place] [address] Assigned Heart and Vascular Provider 05/09/20 03/16/21 Franck Alfaro MD Assigned Heart and Vascular Provider 03/17/21 12/27/21 Neetu Soria, JENNA DAMPPROOFER [address] [place] [address] Assigned Heart and Vascular Provider 12/28/21 04/18/22 Franck Alfaro MD [address] [place] [address] Assigned Heart and Vascular Provider 04/19/22 06/27/22 Neetu Soria, JENNA DAMPPROOFER [address] [place] [address] Assigned Heart and Vascular Provider 06/28/22 01/15/24 Franck Alfaro MD Assigned Heart and Vascular Provider 04/17/24 06/14/24 Neetu Soria, JENNA DAMPPROOFER [address] [place] [address] Assigned Heart and Vascular Provider 06/15/24 09/13/24 Marky Blum MD Assigned Heart and Vascular Provider 09/14/24 documented as of this encounter
--- OUTSIDE RECORDS SUMMARY | 2024-11-13 18:17 | XMS_ITS | Encounter Summary ---
Author Organization [place] Address [address] [place] [address] Care Team Providers Care Guest Attendant Name Role Phone System, Provider Not In Primary Care Provider Un available [facility], [facility] Primary Care Provider Kevin Nelson MD Primary Care Provider Simon Gudino MD Unavailable Unavail able Ellen Govea PA-C Unavailable Franck Alfaro MD Unavailable Unavailab leigh Soria, July E NAIL ASSEMBLY MACHINE OPERATOR OFFICE AUTOMATION TECHNICIAN Unavailable [phone] Franck Alfaro MD Unavailable Unavailab leigh Soria, July E NAIL ASSEMBLY MACHINE OPERATOR OFFICE AUTOMATION TECHNICIAN Unavailable [phone] Franck Alfaro MD Unavailable Unavailab leigh Soria, July E NAIL ASSEMBLY MACHINE OPERATOR OFFICE AUTOMATION TECHNICIAN Unavailable [phone] Marky Blum MD Unavailable Un available Encounter Details Date Type Department Care Team (Late st Contact Info) Description 12/11/2010 Office Visit-[facility] [address] [place] [address] Simon Gudino MD Social History Tobacco Use Types Packs/Day Years Used Date Smoking Tobacco: Never Assessed Sex and Gender Information Value Date Recorded Sex Assigned at Not on file 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 He [id number] rounds of golf this summer and noticed [...] (which then resolved after [facility] year) remains completely resolved. 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 <FONT COLOR=#[id number]><FONT POINT=10> Weight- 224.30 lbs. Height- 67 CONSTITUTIONAL [...] person and place. MEDICATIONS UPDATED/STARTED TODAY: <FONT COLOR=#[id number]><FONT POINT=10> IMPRESSION/PLAN: 1. Coronary artery disease. He is currently without ischemia, heart failure, or arrhythmia syncope.Ejection fraction was normal. His stent was widely patent. There was no significant disease in significant coronaries on an angiogram done in 2009 for his severe dyspnea. As noted, that has resolved. 2. Dyslipidemia, at goal within the last year. Follow up is pending next month. 3. Hypertension, controlled. 4. Status post LAD stenting, widely patent [...] know if you have any questions. <FONT COLOR=#[id number]><FONT POINT=10> TODAYS ORDERS 1. F/U with Ellen Alejandre PA-C 1 year Simon Gudino M.D. documented in this encounter Plan of Treatment Not on file documented as of this encounter Visit Diagnoses Not on filedocumented in this encounter Care Teams Guest Attendant Relationship Specialty Start Date End Date System, Provider Not In PCP - General Clinic 07/26/13 10/12/13 [facility], [facility] [address] [place] [address] PCP - General 10/13/13 04/16/14 Kevin Nelson MD [address] [place] [address] PCP - General 04/17/14 Simon Gudino MD Assigned Heart and Vascular Provider 12/16/19 05/08/20 Ellen Govea PA-C [address] [place] [address] Assigned Heart and Vascular Provider 05/09/20 03/16/21 Franck Alfaro MD Assigned Heart and Vascular Provider 03/17/21 12/27/21 Neetu Soria, NAIL ASSEMBLY MACHINE OPERATOR OFFICE AUTOMATION TECHNICIAN [address] [place] [address] Assigned Heart and Vascular Provider 12/28/21 04/18/22 Franck Alfaro MD [address] [place] [address] Assigned Heart and Vascular Provider 04/19/22 06/27/22 Neetu Soria, NAIL ASSEMBLY MACHINE OPERATOR OFFICE AUTOMATION TECHNICIAN [address] [place] [address] Assigned Heart and Vascular Provider 06/28/22 01/15/24 Franck Alfaro MD Assigned Heart and Vascular Provider 04/17/24 06/14/24 Neetu Soria APRN [facility] [address] [place] [address] Assigned Heart and Vascular Provider 06/15/24 09/13/24 Marky Blum MD Assigned Heart and Vascular Provider 09/14/24 documented as of this encounter
--- OUTSIDE RECORDS SUMMARY | 2024-11-13 18:17 | XMS_ITS | Encounter Summary ---
Author Organization [place] Address [address] [facility] [address] Care Team Providers Care Counselor Camp Name Role Phone Kevin Nelson MD Primary Care Provider Franck Alfaro MD Unavailable Unavailab leigh Soria, JulyN DIRECTOR OF MATERNITY SERVICES Unavailable [phone] Franck Alfaro MD Unavailable Unavailab leigh Soria July E ADVERTISING COPYWRITER DIRECTOR OF MATERNITY SERVICES Unavailable [phone] Marky Blum MD Unavailable Un available Encounter Details Date Type Department Care Team (Late st Contact Info) Description 05/27/2022 External Order Results [facility] [address] [place] [address] Outside, Provider Social History Tobacco Use Types [...] on file Legal Sex Male 4:49 AM PLASTER APPLICATOR Gender Identity Not on file Sexual Orientation [...] CDT Verified by Denver Cordoba on 05/29/2022. us Kevin Nelson MD LAB - BLOOD ORDERABLES Edited Result - Final MICHAEL PFT NON-INTERFACED (ONBASE SCANS) documented in this encounter Visit Diagnoses Not on filedocumented in this encounter Additional Health Concerns Assessment Noted Time PHQ-9 Depression Total Score: 10 04/18/ 023 12:46 PM PLASTER APPLICATOR documented as of this encounter Care Teams Counselor Camp Relationship Specialty Start Date End Date Kevin Nelson MD [address] [place] [address] PCP - General 04/17/14 Franck Alfaro MD [address] [place] [address] Assigned Heart and Vascular Provider 04/19/22 06/27/22 Neetu Soria, ADVERTISING COPYWRITER DIRECTOR OF MATERNITY SERVICES [address] [place] [address] Assigned Heart and Vascular Provider 06/28/22 01/15/24 Franck Alfaro MD Assigned Heart and Vascular Provider 04/17/24 06/14/24 Neetu Soria, ADVERTISING COPYWRITER DIRECTOR OF MATERNITY SERVICES [address] [place] [id number] Assigned Heart and Vascular Provider 06/15/24 09/13/24 Mraky Blum MD Assigned Heart and Vascular Provider 09/14/24 documented as of this encounter
--- OUTSIDE RECORDS SUMMARY | 2024-11-13 18:17 | XMS_ITS | Encounter Summary ---
Author Organization [place] Address [address] [place] [address] Care Team Providers Care Reversal Print Inspector Name Role Phone System, Provider Not In Primary Care Provider Un available [facility], [facility] Primary Care Provider Kevin Nelson MD Primary Care Provider Simon Gudino MD Unavailable Unavail able Ellen Govea PA-C Unavailable Franck Alfaro MD Unavailable Unavailab leigh Soria, July E DRY PRESS OPERATOR HELPER LONG WALL SHEAR OPERATOR Unavailable [phone] Franck Alfaro MD Unavailable Unavailab leigh Soria, July E DRY PRESS OPERATOR HELPER LONG WALL SHEAR OPERATOR Unavailable [phone] Franck Alfaro MD Unavailable Unavailab leigh Soria, July E DRY PRESS OPERATOR HELPER LONG WALL SHEAR OPERATOR Unavailable [phone] Marky Blum MD Unavailable Un available Encounter Details Date Type Department Care Team (Late st Contact Info) Description 12/15/2011 Office Visit-[facility] [address] [place] [address] Unknown, Doctor, Social History Tobacco Use Types Packs/Day Years Used Date Smoking Tobacco: Never Assessed Sex and Gender Information Value Date Recorded Sex Assigned at Not on file 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 - CAD, 414.00 2. - Hyperlipidemia, 272.4 3. - Hypertension, benign, 401.1 4. [place]-S/P Anterior, 412 5. Shortness of breath, 786.05 [...] gentleman who presents to the [facility] today for a follow-up visit. As you recall, he was seen this past couple of weeks for his annual cardiology follow-up visit and he was concerned because he had shortness of breath with exertion over approximately 4-5 months. He has a history of known coronary artery disease with stenting to his LAD after presenting with an non-ST elevation [place] five years ago. He has not had [...] or infarction that was done at the [facility]. 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; Sexual Activity- sexually inactive; Residence [...] on filedocumented in this encounter Care Teams Reversal Print Inspector Relationship Specialty Start Date End Date System, Provider Not In PCP - General Clinic 07/26/13 10/12/13 [facility] [address] [place] [address] PCP - General 10/13/13 04/16/14 Kevin Nelson MD [address] [place] [address] PCP - General 04/17/14 Simon Gudino MD Assigned Heart and Vascular Provider 12/16/19 05/08/20 Ellen Govea PA-C [address] [place] [address] Assigned Heart and Vascular Provider 05/09/20 03/16/21 Franck Alfaro MD Assigned Heart and Vascular Provider 03/17/21 12/27/21 Neetu Soria APRN LONG WALL SHEAR OPERATOR [address] [place] [address] Assigned Heart and Vascular Provider 12/28/21 04/18/22 Franck Alfaro MD [address] [place] [address] Assigned Heart and Vascular Provider 04/19/22 06/27/22 Neetu Soria, JENNA LONG WALL SHEAR OPERATOR [address] [place] [address] Assigned Heart and Vascular Provider 06/28/22 01/15/24 Franck Alfaro MD Assigned Heart and Vascular Provider 04/17/24 06/14/24 Neetu Soria, JENNA LONG WALL SHEAR OPERATOR [address] [place] [address] Assigned Heart and Vascular Provider 06/15/24 09/13/24 Marky Blum MD Assigned Heart and Vascular Provider 09/14/24 documented as of this encounter
--- OUTSIDE RECORDS SUMMARY | 2024-11-13 18:17 | XMS_ITS | Clinical Summary ---
Author Organization [place] Address [address] [facility] [place] [address] Care Team Providers Care Extrusion Operator Name Role Phone Kevin Nelson MD Primary Care Provider [phone] Marky Blum MD Unavailable Un available Allergies Active Allergy Reactions Criticality Noted Date Comments Atorvastatin Unknown 07/27/2013 Muscles weak and sore Beta Adrenergic Blockers Fatigue 07/27/2013 Severe fatigue Lisinopril Cough 07/27/2013 Metoprolol Fatigue 08/08/2013 headaches Medications nitroglycerin (NITROSTAT) 0.[address] 0.4 mg under the tongue every 5 minutes as needed for chest pain. Active Omeprazole Magnesium (PRILOSEC OTC PO) Take 20 mg by mouth every evening. Active albuterol (PROAIR HFA, PROVENTIL HFA, VENTOLIN HFA) 108 (90 BASE) MCG/ACT inhaler Inhale 2 puffs into the lungs every 6 hours as needed for shortness of breath / dyspnea or wheezing Active metFORMIN (GLUCOPHAGE) 1000 MG tablet Take 1,000 mg by mouth 2 times daily (with meals). Active glipiZIDE (GLUCOTROL) 5 MG tablet Take 5 mg by mouth daily. Active cyanocobalamin (VITAMIN B-12) 1000 MCG tablet Take 1,000 mcg by mouth daily. Active ferrous sulfate (FEROSUL) 325 (65 Fe) MG tablet Take 325 mg by mouth every evening. 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5 MG tablet Take 2.5 mg by mouth daily. Active sitagliptin (JANUVIA) 100 MG tablet Take 100 mg by mouth daily. 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 Overview (08/12/2013): NSTEMI & cath 2006: LD to LAD 07/2013 - Complex left main [...] Overview (07/22/2013): CT chest 2007, no change Resolved Problems Problem Noted Date Diagnosed Date Resolved Date Coronary artery disease of n ative artery of anvik heart with stable angina pectoris 07/11/2020 03/07/2021 Overview (07/11/2020): Added automatically from request for surgery [id number] Left subscapular pain 12/25/20132013 Dyspnea on exertion 12/25/2013 12/27/19 14 Encounters Date Type Department Care Team Description 10/18/[address] [place] [address] Marky Blum MD Appointment 09/13/2024 8:45 AM CDT Office Visit [address] [place] [phone] Marky Blum MD 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 (H) 09/13/2024 Travel from Last 3 Months Immunizations Immunization Administration Dates Next Due Influenza (High Dose) Trival ent,PF (Fluzone) 11/21/2013 Influenza (IIV3) PF 01/17/2015, 3,12/22/2011,2010,12/24/2009,12/11/2008,12/08/2007,1 ,12/24/2005 Pneumo Conj 13-V (2010&after) 04/27/2015 Pneumococcal 23 valent 11/01/2003 TD,PF 7+ ([facility]) 11/06/2005 Tdap (Adult) Unspecified Formulation 08/18/2011 Zoster vaccine, live 12/08/2006 Family History Medical History Relation Comments Heart Disease Brother [place] in 50 + Heart Disease Father [place], and [place] Hypertension Mother Respiratory Mother copd Heart Disease Sister stents in 70s Relation Status Comments Brother Alive Father Mother Sister Alive Social History Tobacco Use Types Packs/Day Years Used Date Smoking Tobacco: Former Cigarettes 1 20 1 965 - 02/24/1984 Smokeless Tobacco: Never Tobacco Cessation:Counseling Given: Not Answered Alcohol Use Standard Drinks/Week Comments Yes 0 (1 standard drink = 0.6 oz pur e alcohol) rarely PHQ-2 Answer Date Recorded PHQ-2 Score 0 04/06/2024 Adolescent Education Answer Date Record ed Getting School Help Needed Not on file 12/09 Food Insecurity Answer Date Recorded Within the past 12 months, d id you worry that your food would run out before you got money to buy more? No 04/21/2024 Within the past 12 months, d id the food you bought just not last and you didn t have money to get more? No 04/21/2024 Housing Stability Answer Date Recorded Do you have housing? (Housin g is defined as stable permanent housing and does not include staying outside in a car, in a tent, in an abandoned building, in an overnight retirement, or couch-surfing.) Yes 04/21/2024 Are you worried about losing your housing? No 04/21/2024 Financial Resource Strain Answer Date R ecorded Within the past 12 months, h ave you or your family members you live with been unable to get utilities (heat, electricity) when it was really needed? No 04/21/2024 Transportation Needs Answer Date Record ed Within the past 12 months, h as lack of transportation kept you from medical appointments, getting your medicines, non-medical meetings or appointments, work, or from getting things that you need? No 04/21/2024 Interpersonal Safety Answer Date Record ed Do you feel physically and e motionally safe where you currently live? Yes 04/24/2024 Within the past 12 months, h ave you been hit, slapped, kicked or otherwise physically hurt by someone? No 04/24/2024 Within the past 12 months, h ave you been humiliated or emotionally abused in other ways by your partner or ex-partner? No 04/24/2024 Sex and Gender Information Value Date Recorded Sex Assigned at Not on file Legal Sex Male 4:49 AM BUSINESS MACHINES TEACHER Gender Identity Not on file Sexual Orientation Not on file Last Filed Vital Signs Vital Sign Reading Time Taken Comments Blood Pressure 128/60 09/13/2024 8:27 AM CDT Pulse 86 09/13/2024 8:27 AM CDT Temperature 36.7 C (98.1 F) 04/25/2024 7:41 AM BUSINESS MACHINES TEACHER Respiratory Rate 18 04/25/2024 7:41 AM BUSINESS MACHINES TEACHER Oxygen Saturation 96% 09/13/2024 8:27 AM CDT Inhaled Oxygen Concentration - - Weight 94.2 kg (207 lb 11.2 oz) 09/13/2024 8:27 AM CDT Height 180.3 cm (5' 11) 09/13/2024 8:27 AM CDT Body Mass Index 28.97 09/13/2024 8:27 AM CDT Plan of Treatment Health Maintenance Due Date Last Done Comments ANNUAL REVIEW OF HM ORDERS 1940 DIABETIC FOOT EXAM 1940 MICROALBUMIN 1940 FALL RISK ASSESSMENT 08/28/2003 RSV VACCINE (1 - 1-dose 75+ series) 2013 A1C 02/06/2020 08/07/2019, 10/25, 08/13/2015, Additional history exists ADVANCE CARE PLANNING 09/28/2023 09/27/2018 COVID-19 VACCINE ( season) 2024 12/13/2020, 04/21/2020, 03/31/2020 INFLUENZA VACCINE (#1) 2024 , 11/17/2022, 11/19/2021, Additional history exists EYE EXAM 04/15/2025 04/15/2024, 04/09/2022 LIPID 04/22/2025 04/22/2024, 05/25, 10/21/2019, Additional history exists MEDICARE ANNUAL WELLNESS VISIT 06/06/2025 06/06/2024, 02/26/2023, 11/12/2021, Additional history exists BMP 06/17/2025 06/17/2024, 04/24, 04/25/2024, Additional history exists DTAP/TDAP/TD VACCINE (3 - Td or Tdap) 11/17/2032 11/17/2022, 08/18/2011, 08/18/2011, Additional history exists TSH W/FREE T4 REFLEX Discontinued 12/25/2013, 12/26/19 14 PNEUMOCOCCAL VACCINE 50+ YEARS Completed 04/27/2015, 11/01/2003 ZOSTER VACCINE Completed 01/27/2019, 03/2018, 12/08/2006 PHQ-2 (once per calendar year) Completed 04/06/2024, 04/18/2022, 04/18/2022, Additional history exists HPV VACCINE (No Doses Required) Completed MENINGITIS VACCINE Aged Out No longer eligible based on patient's age to complete this topic Medical Devices Implanted Type Area Emergency Dispatch Operator Device Identifier Shelf Expiration Date Model / Serial / Lot Stent Resolute Praveen De 2.7fr [id number] Ronyx [id number] Implanted:09/2019 at [facility] (Quantity not on file) Stent Drug Eluting (LD) [employer] 01/14/2020 [id number] / / [id number] Stent Coronary Ld Synergy Xd Mr [id number] - [id number] Implanted:Qty: 1 on 04/22/2024 at [facility] Stent Drug Eluting (LD) [employer] 08/18/2025 [id number] / / [id number] Procedures Procedure Name Priority Date/Time Associated Diagnosis Comments BASIC METABOLIC PANEL Routine 06/17/2024 10:01 AM CDT Primary hypertension LIPID REFLEX TO DIRECT LDL PANEL Add-On 04/22/2024 7:13 AM BUSINESS MACHINES TEACHER HEMOGLOBIN A1C Routine 08/07/2019 3:43 PM CDT Near syncope TSH WITH FREE T4 REFLEX Routine 12/25/2013 6:48 PM BUSINESS MACHINES TEACHER Shortness Of Breath from Last 3 Months or Most Recently Relevant to Health Maintenance Results * (ABNORMAL) Basic metabolic panel (06/17/2024 10:01 AM CDT) Sodium 140 135 - 145 mmol/L 06/17/2024 10:32 AM CDT LABORATORY Potassium 4.9 3.4 - 5.3 mmol/L 06/17/2024 10:32 AM CDT LABORATORY Chloride 105 98 - 107 mmol/L 06/17/2024 10:32 AM CDT LABORATORY Carbon Dioxide (CO2) 25 22 - 29 mmol/L 06/17/2024 10:32 AM CDT LABORATORY Anion Gap 10 7 - 15 mmol/L 06/17/2024 10:32 AM CDT LABORATORY Urea Nitrogen 17.8 8.0 - 23.0 mg/dL 06/17/2024 10:32 AM CDT LABORATORY Creatinine 1.14 0.67 - 1.17 mg/dL 06/17/2024 10:32 AM CDT LABORATORY GFR Estimate 63 >60 mL/min/1.7 3m2 06/17/2024 10:32 AM CDT LABORATORY Comment:eGFR calculated usin 2020 CKD-EPI equation. Calcium 9.6 8.8 - 10.4 mg/dL 06/17/2024 10:32 AM CDT LABORATORY Glucose 177(H) 70 - 99 mg/dL 06/17/2024 10:32 AM CDT LABORATORY Blood STRUCTURE OF RIGHT UPPER LIMB / Unknown Venipuncture / Unknown 06/17/2024 10:01 AM CDT 06/17/2024 10:04 AM CDT us Neetu E Yang AGUIRREN AGRICULTURAL EDUCATION PROFESSOR LAB - BLOOD ORDERABLES Fin al Result LABORATORY [facility] [address] Lab (1st floor, no room number) [place] [address], [facility] * Lipid panel reflex to direct LDL (04/22/2024 7:13 AM BUSINESS MACHINES TEACHER) Cholesterol 103 <200 mg/dL 04/22/2024 11:51 AM BUSINESS MACHINES TEACHER [facility] Triglycerides 79 <150 mg/dL 04/22/2024 11:51 AM BUSINESS MACHINES TEACHER [facility] Direct Measure HDL 45 >=40 mg/dL 2024 11:51 AM BUSINESS MACHINES TEACHER [facility] LDL Cholesterol Calculated 42 <100 mg/dL 04/22/2024 11:51 AM BUSINESS MACHINES TEACHER [facility] Non HDL Cholesterol 58 <130 mg/dL 04/22/2024 11:51 AM BUSINESS MACHINES TEACHER [facility] Blood STRUCTURE OF RIGHT UPPER LIMB / Unknown Venipuncture / Unknown 04/22/2024 7:13 AM BUSINESS MACHINES TEACHER 04/22/2024 8:01 AM BUSINESS MACHINES TEACHER Narrative [facility] - 04/22/2024 11:51 AM BUSINESS MACHINES TEACHER Cholesterol Desirable: < 200 mg/dL Borderline High: 200 - 239 mg/dL High: >= 240 mg/dL Triglycerides Normal: < 150 mg/dL Borderline High: 150 - 199 mg/dL High: 200-499 mg/dL Very High: >= 500 mg/dL Direct Measure HDL Female: >= 50 mg/dL Male: >= 40 mg/dL LDL Cholesterol Desirable: < 100 mg/dL Above Desirable: 100 - 129 mg/dL Borderline High: 130 - 159 mg/dL High: 160 - 189 mg/dL Very High: >= 190 mg/dL Non HDL Cholesterol Desirable: < 130 mg/dL Above Desirable: 130 - 159 mg/dL Borderline High: 160 - 189 mg/dL High: 190 - 219 mg/dL Very High: >= 220 mg/dL Crys Lema PA-C LAB - BLOOD ORDERABLES Fi nal Result [facility] [place] [facility] [address] [place] [address], [facility] * (ABNORMAL) Hemoglobin A1c (08/07/2019 3:43 PM CDT) Hemoglobin A1C 6.2(H) 0 - 5.6 % 08/07/2019 4:[address] [facility] Comment: Normal <5.7% Prediabetes 5.7-6.4% Diabetes 6.5% or higher - adopted from ADA consensus guidelines. Blood specimen (specimen) 08/07/2019 3:43 PM CDT 08/07/2019 3:44 PM CDT us Dionicio Collins MD LAB - BLOOD ORDERABLES Final Result [facility] [address] [place] [address], [facility] [phone] * TSH with free T4 reflex (12/25/2013 6:48 PM BUSINESS MACHINES TEACHER) TSH 2.88 0.40 - 4.00 mU/L [facility] Comment: Effective 09/21/2013, the reference range for this assay has changed to reflect new instrumentation/methodology. 12/25/2013 6:48 PM BUSINESS MACHINES TEACHER 12/25/2013 6:55 PM BUSINESS MACHINES TEACHER us Bill Tsai MD LAB - BLOOD ORDERAB LES Final Result Performing Organization Address City/[facility]/ZIP Co de Phone Number [facility] [address] [place] [address], [facility] [phone] from Last 3 Months or Most Recently Relevant to Health Maintenance Insurance [employer] MEDICARE [facility] MEDICARE Advance Directives For more information, please contact: [phone] Documents on File Type Date Recorded Patient Time Study Technologist Expl anation Advance Directives and Living Will 09/27/2018 1:00 PM Health Care Directiv e 10/08/2011 * Full Code (Latest Code Status on File) Date Activated Date Inactivated Comments 04/21/2024 12:30 PM 04/25/2024 1:50 PM All basic an d advanced life-sustaining interventions are performed as appropriate Question Answer Comments Code status determined by: Discussion with patie nt/ legal decision maker * Full Code Date Activated Date Inactivated Comments 08/07/2019 3:25 [...] Comments 12/26/2013 10:57 AM 08/08/2015 1:39 PM Healthcare Agents on File Name Relationship Healthcare Agent Relationshi p Communication Yamilex Mad[place] Spouse Health Care Agent Gianluca Mad[place] Son Second Alternate Health Care Agent Amanda Del Rio Daughter First Alternate Health Care Agent Care Teams Extrusion Operator Relationship Specialty Start Date End Date Kevin Nelson MD [address] [place] [address] PCP - General 04/17/14 Marky Blum MD Assigned Heart and Vascular Provider 09/14/24
--- OUTSIDE RECORDS SUMMARY | 2024-11-13 18:17 | XMS_ITS | Encounter Summary ---
Author Organization [place] Address [address] [address] Care Team Providers Care Pill Machine Operator Name Role Phone System, Provider Not In Primary Care Provider Un available [facility] Primary Care Provider Kevin Nelson MD Primary Care Provider Simon Gudino MD Unavailable Unavail able Ellen Govea PA-C Unavailable Franck Alfaro MD Unavailable Unavailab leigh Soria, July E ICE HOUSE SUPERVISOR BOILERMAKER'S ASSISTANT Unavailable Franck Alfaro MD Unavailable Unavailab leigh Soria, July E ICE HOUSE SUPERVISOR BOILERMAKER'S ASSISTANT Unavailable Franck Alfaro MD Unavailable Unavailab leigh Soria, July E ICE HOUSE SUPERVISOR BOILERMAKER'S ASSISTANT Unavailable Marky Blum MD Unavailable Un available Encounter Details Date Type Department Care Team (Late st Contact Info) Description 09/04/2009 Office Visit-[facility] [place] [address] [place] [address] Yang July E, ICE HOUSE SUPERVISOR BOILERMAKER'S ASSISTANT [address] [address] [place] [address] Social History Tobacco Use Types Packs/Day Years Used Date Smoking Tobacco: Never Assessed Sex and Gender Information Value Date Recorded Sex Assigned at Not on file Legal Sex Male 4:49 AM 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 [id number] DATE: 09/04/2009 [facility] [place] DATE OF : 1940 AGE: [age] years old Referring Physician: KRYSTLE CARLOS CURRENT DIAGNOSES 1. - Angina Pectoris, 413.9 2. OK-S/P Anterior, 412 3. PTCA, V45.82 4. - [...] delightful 69-year-old male who presents to the [facility] today for a follow-up visit. 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 documented in this encounter Plan of Treatment Not on file documented as of this encounter Visit Diagnoses Not on filedocumented in this encounter Care Teams Pill Machine Operator Relationship Specialty Start Date End Date System, Provider Not In PCP - General Clinic 07/26/13 10/12/13 [place] [id number] PCP - General 10/13/13 04/16/14 Kevin Nelson MD [address] [place] [address] [place] [address] PCP - General 04/17/14 Simon Gudino MD Assigned Heart and Vascular Provider 12/16/19 05/08/20 Ellen Govea PA-C [address] [place] [address] Assigned Heart and Vascular Provider 05/09/20 03/16/21 Franck Alfaro MD Assigned Heart and Vascular Provider 03/17/21 12/27/21 Neetu Soria, JENNA BOILERMAKER'S ASSISTANT [address] [place] [address] Assigned Heart and Vascular Provider 12/28/21 04/18/22 Franck Alfaro MD [address] [place] [address] Assigned Heart and Vascular Provider 04/19/22 06/27/22 Neetu Soria, JENNA BOILERMAKER'S ASSISTANT [address] [place] [address] Assigned Heart and Vascular Provider 06/28/22 01/15/24 Franck Alfaro MD Assigned Heart and Vascular Provider 04/17/24 06/14/24 Neetu Soria, JENNA BOILERMAKER'S ASSISTANT [address] [place] [address] Assigned Heart and Vascular Provider 06/15/24 09/13/24 Marky Blum MD Assigned Heart and Vascular Provider 09/14/24 documented as of this encounter
--- OUTSIDE RECORDS SUMMARY | 2024-11-13 18:18 | XMS_ITS | Encounter Summary ---
Author Organization [place] Address [address] [place] [address] Care Team Providers Care Geochemical Manager Name Role Phone System, Provider Not In Primary Care Provider Un available [facility], [facility] Primary Care Provider Amari Nelson MD Primary Care Provider Simon Gudino MD Unavailable Unavail able Ellen Govea PA-C Unavailable [phone] Franck Alfaro MD Unavailable Unavailab leigh Soria, July E MOLECULAR BIOLOGIST TIE IN HAND Unavailable [phone] Franck Alfaro MD Unavailable Unavailab leigh Soria, July E MOLECULAR BIOLOGIST TIE IN HAND Unavailable [phone] Franck Alfaro MD Unavailable Unavailab leigh Soria, July E MOLECULAR BIOLOGIST TIE IN HAND Unavailable [phone] Marky Blum MD Unavailable Un available Encounter Details Date Type Department Care Team (Late st Contact Info) Description 06/27/2013 Office Visit-[facility] [address] [place] [address] Unknown, Doctor, Social History Tobacco Use Types Packs/Day Years Used Date Smoking Tobacco: Never Assessed Sex and Gender Information Value Date Recorded Sex Assigned at Not on file Legal Sex Male 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 - CAD, 414.00 2. [...] delightful 72-year-old gentleman who presents to the 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; Sexual Activity- sexually inactive; Residence - [...] on filedocumented in this encounter Care Teams Geochemical Manager Relationship Specialty Start Date End Date System, Provider Not In PCP - General Clinic 07/26/13 10/12/13 [facility], [facility] [address] [place] [address] PCP - General 10/13/13 04/16/14 Amari Nelson MD [address] [place] [address] PCP - General 04/17/14 Simon Gudino MD Assigned Heart and Vascular Provider 12/16/19 05/08/20 Ellen Govea PA-C [address] [place] [address] Assigned Heart and Vascular Provider 05/09/20 03/16/21 Franck Alfaro MD Assigned Heart and Vascular Provider 03/17/21 12/27/21 Neetu Soria, MOLECULAR BIOLOGIST TIE IN HAND [address] [place] [address] Assigned Heart and Vascular Provider 12/28/21 04/18/22 Franck Alfaro MD [address] [place] [address] Assigned Heart and Vascular Provider 04/19/22 06/27/22 Neetu Soria, MOLECULAR BIOLOGIST TIE IN HAND [address] [place] [address] Assigned Heart and Vascular Provider 06/28/22 01/15/24 Franck Alfaro MD Assigned Heart and Vascular Provider 04/17/24 06/14/24 Neetu Soria, MOLECULAR BIOLOGIST [facility] [address] [place] [address] Assigned Heart and Vascular Provider 06/15/24 09/13/24 Marky Blum MD Assigned Heart and Vascular Provider 09/14/24 documented as of this encounter
--- OUTSIDE RECORDS SUMMARY | 2024-11-13 18:18 | XMS_ITS | Encounter Summary ---
Author Organization [place] Address [address] [address] Care Team Providers Care Founder Chairman And Chief Creative Officer Name Role Phone Kevin Nelson MD Primary Care Provider [phone] Neetu Soria E MOLD POLISHER KIDS ACTIVITIES COACH Unavailable [phone] Marky Blum MD Unavailable Un available Reason for Visit * Reason Comments Blood Pressure Check Encounter Details Date Type Department Care Team (Latest Contact Info) Description 06/17/2024 Documentation Only [facility] [address] [place] [address] Claudia Garcias, [facility] Blood Pressure Check Social History Tobacco Use Types Packs/Day Years Used Date Smoking Tobacco: Former Cigarettes 1 20 1 965 - 02/24/1984 Smokeless Tobacco: Never Alcohol Use Standard Drinks/Week Comments Yes 0 [...] Answer Date Recorded Do you have housing? 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 Gender Identity Not on file Sexual Orientation Not on file documented as of this encounter Plan of Treatment Not on file documented as of this encounter Visit Diagnoses Not on filedocumented in this encounter Additional Health Concerns Assessment Noted Time PHQ-9 Depression Total Score: 10 023 12:46 PM BANKING CENTER MANAGER documented as of this encounter Care Teams Founder Chairman And Chief Creative Officer Relationship Specialty Start Date End Date Kevin Nelson MD [address] [place] [address] PCP - General 04/17/14 Neetu Soria APRN KIDS ACTIVITIES COACH [address] [place] [address] Assigned Heart and Vascular Provider 06/15/24 09/13/24 Marky Blum MD Assigned Heart and Vascular Provider 09/14/24 documented as of this encounter
--- OUTSIDE RECORDS SUMMARY | 2024-11-13 18:18 | XMS_ITS | Encounter Summary ---
Author Organization [place] Address [address] [facility] [place] [address] Care Team Providers Care Ocean Import Representative Name Role Phone Kevin Nelson MD Primary Care Provider [phone] Franck Alfaro MD Unavailable Unavailab leigh Soria, Neetu E POWDER AND PRIMER CANNING LEADER SUPERVISOR CHANNEL PROCESS Unavailable [phone] Marky Blum MD Unavailable Un available Reason for Visit * Reason Onset Date Comments Symptoms 03/31/2024 Chest pain and S OB Encounter Details Date Type Department Care Team (Late st Contact Info) Description 03/31/2024 Telephone [facility] [address] [place] [address] Franck Alfaro MD Symptoms (Chest pain and SOB) Social History Tobacco Use Types Packs/Day Years [...] on file 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 Gender Identity Not on file Sexual Orientation Not on file documented as of this encounter Miscellaneous Notes * Telephone Encounter - Stein, Victorina - 03/31/2024 8:04 AM CST Caller reporting the following red-flag symptom(s): Chest pain and SOB Per the system red-flag symptom policy, patient was instructed to: speak with a Registered Nurse Action: Patient warm transferred to a Registered Nurse RUMENTATION DESIGNER documented in this encounter Plan of Treatment Not on file documented as of this encounter Visit Diagnoses Not on filedocumented in this encounter Additional Health Concerns Assessment Noted Time PHQ-9 Depression Total Score: 10 023 12:46 PM INSTRUMENTATION DESIGNER documented as of this encounter Care Teams Ocean Import Representative Relationship Specialty Start Date End Date Kevin Nelson MD [address] [place] [address] PCP - General 04/17/14 Franck Alfaro MD Assigned Heart and Vascular Provider 04/17/24 06/14/24 Neetu Soria, JENNA SUPERVISOR CHANNEL PROCESS [address] [place] [address] Assigned Heart and Vascular Provider 06/15/24 09/13/24 Marky Blum MD Assigned Heart and Vascular Provider 09/14/24 documented as of this encounter
--- OUTSIDE RECORDS SUMMARY | 2024-11-13 18:18 | XMS_ITS | Encounter Summary ---
Author Organization [place] Address [address] [place] [address] Care Team Providers Care Spring Tacker Name Role Phone Kevin Nelson MD Primary Care Provider [phone] Marky Blum MD Unavailable Un available Reason for Visit * Reason Onset Date Comments Appointment 10/18/2024 Encounter Details Date Type Department Care Team (Late st Contact Info) Description 10/18/2024 Telephone [facility] Heart [address] [place] [address] Marky Blum MD Appointment Social History Tobacco Use Types Packs/Day Years Used Date Smoking Tobacco: Former Cigarettes 1 20 96 - 02/24/1984 Smokeless Tobacco: Never Alcohol Use [...] in an abandoned building, in an overnight fdc, or couch-surfing.) Yes 04/21/2024 Are you worried [...] on file 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 Gender Identity Not on file Sexual Orientation Not on file documented as of this encounter Miscellaneous Notes * Telephone Encounter - June Lei - 10/18/2024 10:59 AM CDT 1st attempt- Left voicemail for the patient to call back and schedule the following: Appointment type: Return Cardiology Provider: Neetu Soria Return date: February 2025 Specialty phone number: [phone] documented in this encounter Plan of Treatment Not on file documented as of this encounter Visit Diagnoses Not on filedocumented in this encounter Additional Health Concerns Assessment Noted Time PHQ-9 Depression Total Score: 10 023 12:46 PM MUSIC ARTIST documented as of this encounter Care Teams Spring Tacker Relationship Specialty Start Date End Date Kevin Nelson MD [address] [place] [address] PCP - General 04/17/14 Marky Blum MD Assigned Heart and Vascular Provider 09/14/24 documented as of this encounter
--- OUTSIDE RECORDS SUMMARY | 2024-11-13 18:18 | XMS_ITS | Encounter Summary ---
Author Organization [place] Address [address] [place] [address] Care Team Providers Care Home Service Demonstrator Name Role Phone System, Provider Not In Primary Care Provider Un available [facility], [facility] Primary Care Provider Amari Nelson MD Primary Care Provider Simon Gudino MD Unavailable Unavail able Ellen Govea PA-C Unavailable Franck Alfaro MD Unavailable Unavailab leigh Soria, July E GLAZIER APPRENTICE ETHANOL OPERATOR Unavailable [phone] Franck Alfaro MD Unavailable Unavailab leigh Soria, July E GLAZIER APPRENTICE ETHANOL OPERATOR Unavailable [phone] Franck Alfaro MD Unavailable Unavailab leigh Soria, July E GLAZIER APPRENTICE ETHANOL OPERATOR Unavailable [phone] Marky Blum MD Unavailable Un available Encounter Details Date Type Department Care Team (Late st Contact Info) Description 03/10/2013 Office Visit-[facility] [address] [place] [address] Simon Gudino MD Social History Tobacco Use Types Packs/Day Years Used Date Smoking Tobacco: Never Assessed Sex and Gender Information Value Date Recorded Sex Assigned at Not on file 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 DATE: 03/10/2013 [facility] DATE OF : 1940 AGE: [age] years old Referring Physician: AMARI NELSON Referring Clinic: [facility] CURRENT DIAGNOSES 1. - CAD, 414.00 2. - Hyperlipidemia, 272.4 3. - Hypertension, benign, 401.1 4. PTCA, V45.82 5. KY-S/P Anterior, 412 6. 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; Sexual Activity- sexually inactive; Residence [...] on filedocumented in this encounter Care Teams Home Service Demonstrator Relationship Specialty Start Date End Date System, Provider Not In PCP - General Clinic 07/26/13 10/12/13 [facility] [address] [place] [address] PCP - General 10/13/13 04/16/14 Amari Nelson MD [address] [place] [address] PCP - General 04/17/14 Simon Gudino MD Assigned Heart and Vascular Provider 12/16/19 05/08/20 Ellen Govea PA-C [address] [place] [address] Assigned Heart and Vascular Provider 05/09/20 03/16/21 Franck Alfaro MD Assigned Heart and Vascular Provider 03/17/21 12/27/21 Neetu Soria, GLAZIER APPRENTICE ETHANOL OPERATOR [address] [place] [address] Assigned Heart and Vascular Provider 12/28/21 04/18/22 Franck Alfaro MD [address] [place] [address] Assigned Heart and Vascular Provider 04/19/22 06/27/22 Neetu Soria, GLAZIER APPRENTICE ETHANOL OPERATOR [address] [place] [address] Assigned Heart and Vascular Provider 06/28/22 01/15/24 Franck Alfaro MD Assigned Heart and Vascular Provider 04/17/24 06/14/24 Neetu Soria, GLAZIER APPRENTICE ETHANOL OPERATOR [address] [place], [place] [address] Assigned Heart and Vascular Provider 06/15/24 09/13/24 Marky Blum MD Assigned Heart and Vascular Provider 09/14/24 documented as of this encounter
--- OUTSIDE RECORDS SUMMARY | 2024-11-13 18:18 | XMS_ITS | Encounter Summary ---
Author Organization [place] Address [address] [place] [address] Care Team Providers Care Hadoop Software Engineer Name Role Phone System, Provider Not In Primary Care Provider Un available [facility], [facility] Primary Care Provider Amari Nelson MD Primary Care Provider [phone] Simon Gudino MD Unavailable Unavail able Ellen Govea PA-C Unavailable Franck Alfaro MD Unavailable Unavailab leigh Soria, July E TERRITORY SALES CONSULTANT CLINICAL SCIENTIST Unavailable [phone] Franck Alfaro MD Unavailable Unavailab leigh Soria, July E TERRITORY SALES CONSULTANT CLINICAL SCIENTIST Unavailable [phone] Franck Alfaro MD Unavailable Unavailab leigh Soria, July E TERRITORY SALES CONSULTANT CLINICAL SCIENTIST Unavailable [phone] Marky Blum MD Unavailable Un available Encounter Details Date Type Department Care Team (Late st Contact Info) Description 04/25/2013 Office Visit-[facility] [address] [place] [address] Unknown, Doctor, Social History Tobacco Use Types Packs/Day Years Used Date Smoking Tobacco: Never Assessed Sex and Gender Information Value Date Recorded Sex Assigned at Not on file 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 - CAD, 414.00 [...] medication change HISTORY OF PRESENT ILLNESS Mr. Santy is a delightful 72-year-old gentleman who presents to the [facility] today for a follow-up visit regarding his recent stress echocardiogram. As you recall, he is followed in our office by Dr. 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; Sexual Activity- sexually inactive; Residence - lives with ; Place of - [place]; Spouse's Occupation -retired; [employer] GENERAL [...] on filedocumented in this encounter Care Teams Hadoop Software Engineer Relationship Specialty Start Date End Date System, Provider Not In PCP - General Clinic 07/26/13 10/12/13 [facility] [address] [place] [address] PCP - General 10/13/13 04/16/14 Amari Nelson MD [address] [place] [address] PCP - General 04/17/14 Simon Gudino MD Assigned Heart and Vascular Provider 12/16/19 05/08/20 Ellen Govea PA-C [address] [place] [address] Assigned Heart and Vascular Provider 05/09/20 03/16/21 Franck Alfaro MD Assigned Heart and Vascular Provider 03/17/21 12/27/21 Neetu Soria, TERRITORY SALES CONSULTANT CLINICAL SCIENTIST [address] [place] [address] Assigned Heart and Vascular Provider 12/28/21 04/18/22 Franck Alfaro MD [address] [place] [address] Assigned Heart and Vascular Provider 04/19/22 06/27/22 Neetu Soria, TERRITORY SALES CONSULTANT CLINICAL SCIENTIST [address] [place] [address] Assigned Heart and Vascular Provider 06/28/22 01/15/24 Franck Alfaro MD Assigned Heart and Vascular Provider 04/17/24 06/14/24 Neetu Soria, TERRITORY SALES CONSULTANT CLINICAL SCIENTIST [address] [place] [address] Assigned Heart and Vascular Provider 06/15/24 09/13/24 Marky Blum MD Assigned Heart and Vascular Provider 09/14/24 documented as of this encounter
--- OUTSIDE RECORDS SUMMARY | 2024-11-13 18:18 | XMS_ITS | Encounter Summary ---
Author Organization [place] Address [address] [facility]. [address] Care Team Providers Care Cotton Stomper Name Role Phone Kevin Nelson MD Primary Care Provider Franck Alfaro MD Unavailable Unavailab leigh Soria, JulyN SHIPPING ASSISTANT Unavailable [phone] Franck Alfaro MD Unavailable Unavailab leigh Soria July E WINDING LATHE OPERATOR SHIPPING ASSISTANT Unavailable [phone] Marky Blum MD Unavailable Un available Encounter Details Date Type Department Care Team (Late st Contact Info) Description 06/12/2022 External Order Results [facility] [address] [place] [address] Outside, Provider Coronary artery disease of [place] artery of [place] heart with stable angina pectoris Social History Tobacco Use Types Packs/Day Years [...] on file 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 us Kevin Nelson MD LAB - BLOOD ORDERABLES Edited Result - Final BREEZE PFT NON-INTERFACED (ONBASE SCANS) * ALT (06/12/2022 8:45 AM CDT) ALT (External) 20 10 - 50 IU/L NON-INTERFACED (ONBASE SCANS) Blood BLOOD SPECIMEN / Unknown 06/12/2022 8:45 AM CDT Narrative BREEZE PFT - 06/16/2022 9:13 AM CDT Verified by Denver Cordoba on 06/16/2022. us Fracnk Alfaro MD LAB - BLOOD ORDERABLES Amando neha Result - Final BREEZE PFT NON-INTERFACED (ONBASE SCANS) documented in this encounter Visit Diagnoses Diagnosis Coronary artery disease of [place] artery of [place] heart with stable angina pectoris documented in this encounter Additional Health Concerns Assessment Noted Time PHQ-9 Depression Total Score: 10 023 12:46 PM PLUMBING AND HEATING CONTRACTOR documented as of this encounter Care Teams Cotton Stomper Relationship Specialty Start Date End Date Kevin Nelson MD [address] [place] [address] PCP - General 04/17/14 Franck Alfaro MD [address] [facility] [place] [address] Assigned Heart and Vascular Provider 04/19/22 06/27/22 Neetu Soria, WINDING LATHE OPERATOR SHIPPING ASSISTANT [address] [place] [id number] Assigned Heart and Vascular Provider 06/28/22 01/15/24 Franck Alfaro MD Assigned Heart and Vascular Provider 04/17/24 06/14/24 Neetu Soria, WINDING LATHE OPERATOR SHIPPING ASSISTANT [address] [place] [address] Assigned Heart and Vascular Provider 06/15/24 09/13/24 Marky Blum MD Assigned Heart and Vascular Provider 09/14/24 documented as of this encounter
--- NOTE | 2024-11-13 18:37 | CRLHL7_ITS ---
For Patients: As a result of the Century Cures Act, medical imaging exams and procedure reports are released immediately into your electronic medical record. You may view this report before your referring provider. If you have questions, please contact your health care provider. Indication: Fall. Technique: Multiple radiographic views of the right hip. Comparison: None. Findings/impression : Impacted fracture of the right femoral neck with 2.1 centimeters anterior displacement the neck with respect the femoral head. Associated varus deformity of the hip. Significant surrounding soft tissue swelling. Vascular calcifications. Dictated by Jemal Jones MD @ 11/13/2024 7:56:27 PM (Electronically Signed)
--- NOTE | 2024-11-13 18:38 | CRLHL7_ITS ---
For Patients: As a result of the Century Cures Act, medical imaging exams and procedure reports are released immediately into your electronic medical record. You may view this report before your referring provider. If you have questions, please contact your health care provider. Indication: : Fall TECHNIQUE: Single-view chest. Comparison x-ray 10/21/2021 FINDINGS: The lungs are clear. The heart, mediastinum and pulmonary vessels are of normal size. There is no evidence of pleural disease. IMPRESSION: Negative chest. Dictated by Niurka Thomason MD @ 11/13/2024 8:07:53 PM (Electronically Signed)
--- NOTE | 2024-11-13 19:05 | ED.GENADULT ---
HPI - General Adult General Chief complaint: Hip Injury/Pain Stated complaint: R hip pain Time Seen by Provider: 11/13/24 18:21 Source: patient and family Mode of arrival: EMS Limitations: no limitations History of Present Illness HPI narrative: 84-year-old male presenting today with right-sided hip pain. Patient states he was out walking in his yd when he tripped and fell. Patient has a history of neuropathy and is unsteady on his feet. He felt immediate pain to the right hip. He did not hit his head or lose consciousness. He remembers everything before, during and after the fall. He denies abdominal pain or back pain. Ambulance was called the patient received 100 mcg of fentanyl in the ambulance. Per EMS he did start desaturate after he received the medication. Patient lives at home with his . Past medical history significant for hypertension, coronary artery disease status post multiple stents, hyperlipidemia, neuropathy, diabetes, COPD. Patient is on Plavix. Per family, patient also straight caths himself to 3 times per day, has decreased sensation to urinate. Related Data Home Medications ?Medication ?Instructions ?Recorded ?Confirmed amlodipine 2.5 mg tablet 2.5 mg PO DAILY 10/25/21 10/25/21 clopidogrel 75 mg tablet 75 mg PO DAILY 10/25/21 10/25/21 ferrous sulfate 325 mg (65 mg 325 mg PO DAILY 10/25/21 10/25/21 iron) tablet (FeroSul) gabapentin 100 mg capsule 100 mg PO Q12H 10/25/21 10/25/21 glipizide 5 mg tablet 5 mg PO DAILY 10/25/21 10/25/21 indomethacin 25 mg capsule 25 mg PO DAILY PRN 10/25/21 10/25/21 ipratropium 20 mcg-albuterol 100 1 puff inhalation Q6H 10/25/21 10/25/21 mcg/actuation mist for inhalation (Combivent Respimat) isosorbide mononitrate 30 mg 30 mg PO DAILY 10/25/21 10/25/21 tablet,extended release 24 hr levofloxacin 750 mg tablet 750 mg PO DAILY 10/25/21 10/25/21 losartan 50 mg tablet 50 mg PO DAILY 10/25/21 10/25/21 metformin 850 mg tablet 850 mg PO BID 10/25/21 10/25/21 nitroglycerin 0.4 mg sublingual 0.4 mg sublingual Q5M PRN 10/25/21 10/25/21 tablet oxycodone 5 mg tablet 5 mg PO HS PRN 10/25/21 10/25/21 rosuvastatin 20 mg tablet 10 mg PO HS 10/25/21 10/25/21 Previous Rx's ?Medication ?Instructions ?Recorded doxycycline hyclate 100 mg capsule 100 mg PO BID #14 caps 08/19/23 prednisone 20 mg tablet 20 mg PO BID #10 tabs 08/19/23 Allergies Allergy/AdvReac Type Severity Reaction Status Date / Time atenolol Allergy Unknown Verified 11/13/24 18:27 atorvastatin Allergy Unknown Myalgia Verified 11/13/24 18:27 lisinopril AdvReac Unknown Cough Verified 11/13/24 18:27 metoprolol AdvReac Unknown Headache Verified 11/13/24 18:27 Review of Systems Status of ROS: Reports: 10 or more systems reviewed and unremarkable except as noted in History and below PFSH [facility] Social History Smoking Status: Never smoker How often do you have a drink containing alcohol: never AUDIT-C Alcohol total score: 0 Non-prescribed substance use: denies use service: No Exam Narrative: Exam Narrative: Well-nourished well-developed patient in no acute distress. Alert and oriented. Answers questions appropriately. Mood and affect are appropriate. Thoughts are goal oriented and rational. No tangential or magical thinking noted. Patient speaks in full sentences without needing to catch his breath. Patient is saturating 88% on room air, goes up to 92% on 2 L. HEENT: Normocephalic atraumatic. Pupils are equally round reactive to light. Extraocular muscles are intact. Conjunctivae are moist without any icterus noted. Moist mucous membranes. Cardiovascular: Heart is regular rate and rhythm S1 and S2 are present without any murmurs. Lungs: Clear to auscultation bilaterally no wheezes rhonchi or rales are appreciated. Patient takes deep breaths without any discomfort. Abdomen: Soft and nontender nondistended with normal bowel sounds. Extremities: Bilateral lower extremities show 2+ pitting edema. Patient's right lower extremity is shortened and externally rotated. He has tenderness at the hip. Skin: Well perfused. Const: Vital Signs, click to edit/add: Vital Signs - 24 hr 11/13/24 18:24 11/13/24 20:00 11/13/24 20:01 Temperature 97.3 F L Pulse Rate 63 68 Pulse Rate [Right Pulse Oximeter] 64 Respiratory Rate 16 15 16 Blood Pressure 181/87 H Blood Pressure [Ri ght Upper Arm] 194/99 H Pulse Oximetry 92 98 97 Oxygen Delivery Me thod Room Air Nasal Cannula Nasal Cannula Oxygen Flow Rate 2 2 Course Course ED Course: CBC shows mild anemia and mild thrombocytopenia which is not new for the patient. Chemistries are unremarkable. Glucose 214. LFTs are unremarkable. EKG, read by me, shows normal sinus rhythm with first-degree AV block, pulse 64. Hip x-ray shows a femoral neck fracture. Chest x-ray: Read by me, does not show any acute pathology. Discussed with Maricruz Castillo who recommends admission and surgical intervention tomorrow. Lora placed. Vital Signs Vital signs: Initial Vital Signs Temperature 97.3 F L 11/13/24 18:24 Temperature Source Temporal Artery Scan 11/13/24 18:24 Pulse Rate 64 11/13/24 18:24 Pulse Rhythm Regular 11/13/24 18:24 Pulse Strength 3+ Normal 11/13/24 18:24 Respiratory Rate 16 11/13/24 18:24 Blood Pressure 194/99 H 11/13/24 18:24 Blood Pressure Mean 130 H 11/13/24 18:24 Blood Pressure Position Sitting 11/13/24 18:24 Pulse Oximetry 92 11/13/24 18:24 Oxygen Delivery Method Room Air 11/13/24 18:24 Vital Signs Temperature 97.3 F L 11/13/24 18:24 Pulse Rate 64 11/13/24 18:24 Respiratory Rate 16 11/13/24 18:24 Blood Pressure 194/99 H 11/13/24 18:24 Pulse Oximetry 92 11/13/24 18:24 Oxygen Delivery Method Room Air 11/13/24 18:24 Temperature 97.3 F L 11/13/24 18:24 Pulse Rate 68 11/13/24 20:01 Respiratory Rate 16 11/13/24 20:01 Blood Pressure 181/87 H 11/13/24 20:01 Pulse Oximetry 97 11/13/24 20:01 Oxygen Delivery Method Nasal Cannula 11/13/24 20:01 Oxygen Flow Rate 2 11/13/24 20:01 Medications Administered Medications: Discontinued Medications Generic Name Dose Route Start Last Admin Trade Name Nai PRN Reason Stop Dose Admin Fentanyl 50 mcg 11/13/24 19:23 11/13/24 19:31 Fentanyl 100 Mcg/2 Ml Inj IVP 11/13/24 19:24 50 mcg ONCE ONE Administration Morphine Sulfate 2 mg 11/13/24 18:54 11/13/24 19:07 Morphine 2 Mg/Ml Inj IVP 11/13/24 18:55 2 mg ONCE ONE Administration Medical Decision Making MDM Narrative Medical decision making narrative: 84-year-old male with a femoral neck fracture. Patient will be admitted for further management. Lab Data Labs: Lab Results 11/13/24 Range/Units 19:23 WBC 6.60 (4.50-11.00) K/uL RBC 4.20 L (4.30-5.90) m/uL Hgb 13.1 L (13.5-17.5) gm/dL Hct 37.2 (37.0-53.0) % MCV 89 (80-100) fL MCH 31 (26-34) pg MCHC 35 (32-36) gm/dL RDW Coeff of [place]an 12.4 (11.5-15.5) % Plt Count 128 L (140-440) K/uL Neut % (Auto) 61.5 (42.0-72.0) % Lymph % (Auto) 27.7 (20-44) % [place] % (Auto) 7.9 (0.0-11.0) % Eos % (Auto) 2.0 (0.0-7.0) % Baso % (Auto) 0.3 (0.0-3.0) % Neut # (Auto) 4.06 (1.7-7.0) K/uL Lymph # (Auto) 1.83 (0.90-2.90) K/uL [place] # (Auto) 0.50 (0.00-0.90) K/UL Eos # (Auto) 0.13 (0.00-0.50) K/uL Baso # (Auto) 0.02 (0.00-0.30) K/uL Abs Immat Gran (auto) 0.04 (0.00-0.30) K/uL Imm/Tot Granulo (auto) 0.6 % Sodium 138 (135-149) mmol/L Potassium 4.5 (3.6-5.1) mmol/L Chloride 103 (96-114) mmol/L Carbon Dioxide 26 (20-32) mmol/L Anion Gap 9 (7-15) mEq/L BUN 19 (7-30) mg/dL Creatinine 1.1 (0.5-1.5) mg/dL Estimated GFR 65 ml/min Glucose 214 H (60-115) mg/dL Lactate 1.4 (0.5-1.9) mmol/L Calcium 8.7 (8.4-10.6) mg/dL Total Bilirubin 0.7 (0.1-1.5) mg/dL Direct Bilirubin 0.2 (0.0-0.5) mg/dL AST 26 (12-35) U/L ALT 18 (4-50) U/L Alkaline Phosphatase 56 (40-150) U/L Total Protein 6.3 (6.0-8.3) g/dL Albumin 4.1 (3.3-5.0) g/dL Imaging Data Chest x-ray: Attestation: I have reviewed the pertinent imaging results. Radiologist's impression: TECHNIQUE: Single-view chest. Comparison x-ray 10/21/2021 FINDINGS: The lungs are clear. The heart, mediastinum and pulmonary vessels are of normal size. There is no evidence of pleural disease. IMPRESSION: Negative chest. X-ray hip: Attestation: I have reviewed the pertinent imaging results. Radiologist's impression: Technique: Multiple radiographic views of the right hip. Comparison: None. Findings/impression : Impacted fracture of the right femoral neck with 2.1 centimeters anterior displacement the neck with respect the femoral head. Associated varus deformity of the hip. Significant surrounding soft tissue swelling. Vascular calcifications. ECG Data Attestation: I personally reviewed and interpreted this ECG as follows: Discharge Plan Discharge Clinical Impression: Femoral neck fracture Patient Disposition: Admitted As Inpatient Condition: Stable
[2024-11-13 19:38] LABS: Lactate* 1.4 mmol/L (0.5-1.9)
[2024-11-13 19:42] LABS: Hematocrit* 37.2 % (37.0-53.0); Hemoglobin* 13.1 gm/dL (13.5-17.5); Immature Granulocytes Abs Auto 0.04 K/uL (0.00-0.30); Immature Granulocytes Pct Auto 0.6 %; Lymphocytes Absolute Auto 1.83 K/uL (0.90-2.90); Mean Corpuscular HGB Conc 35 gm/dL (32-36); Mean Corpuscular Hemoglobin 31 pg (26-34); Mean Corpuscular Volume 89 fL (80-100); RDW Coefficient of Variation % 12.4 % (11.5-15.5); Red Blood Count* 4.20 m/uL (4.30-5.90); White Blood Count* 6.60 K/uL (4.50-11.00)
[2024-11-13 19:43] LABS: Slide Review Reflex No
[2024-11-13 19:55] LABS: Albumin* 4.1 g/dL (3.3-5.0); Chloride* 103 mmol/L (96-114)
[2024-11-13 19:56] LABS: Potassium* 4.5 mmol/L (3.6-5.1); Sodium* 138 mmol/L (135-149)
[2024-11-13 19:58] LABS: Anion Gap 9 mEq/L (7-15); Blood Urea Nitrogen* 19 mg/dL (7-30); Carbon Dioxide* 26 mmol/L (20-32); Creatinine* 1.1 mg/dL (0.5-1.5); Estimated Glomerular Filt Rate 65 ml/min
[2024-11-13 19:59] LABS: Alanine Aminotransferase* 18 U/L (4-50); Alkaline Phosphatase* 56 U/L (40-150); Aspartate Amino Transferase* 26 U/L (12-35); Bilirubin Direct* 0.2 mg/dL (0.0-0.5); Bilirubin Total* 0.7 mg/dL (0.1-1.5); Calcium* 8.7 mg/dL (8.4-10.6); Glucose* 214 mg/dL (60-115); Total Protein* 6.3 g/dL (6.0-8.3)
[2024-11-13 21:04] LABS: Appearance Urine Clear (Clear)
--- NOTE | 2024-11-13 22:05 | PM.IMHP1 ---
Assessment and Plan Assessment and plan (1) Femoral neck fracture: Status: Acute (2) Coronary artery disease: Problem comment: Recurrent interventions with coronary stents Status: Acute (3) History of coronary artery stent placement: Problem comment: Total of 5 coronary stents placed most recently early April 2024 in the right coronary artery. Ejection fraction at that time was 60%. He had a his restenoses of a stent in his diagonal which was not amenable to intervention. Application Designer recommends clopidogrel and aspirin for 1 year and then clopidogrel indefinitely Status: Acute (4) Atonic bladder: Problem comment: Does self catheterization. Status: Acute (5) Diabetes mellitus type 2, controlled: Problem comment: Hemoglobin A1c on September 05 was 7.5 Status: Acute (6) Stage 3 chronic kidney disease: Problem comment: Creatinine on September 05 was 1.3 Status: Acute (7) Anemia: Problem comment: Chronic mild. Hemoglobin 12.6 on September 05 Status: Acute (8) Peripheral neuropathy: Status: Acute (9) Impairment of balance: Problem comment: Had balance difficulties due to peripheral neuropathy prior to hip fracture. Probably needs rehab prior to returning home Status: Acute (10) Essential tremor: Problem comment: New diagnosis on 11/13/2024. Consider propranolol if blood pressure allows. Status: Acute Plan 84-year-old male with femoral neck fracture and multiple comorbidities noted above. He is admitted for management of his hip fracture and other medical problems as noted above. At this point he appears to be relatively well optimized for surgery. Plan surgery tomorrow. Total Time Spent Total Time Spent: Total time spent today is 80 minutes in review of outside records, coordination of care and discussing with patient and and other providers ongoing management of hip fracture and other medical problems Hospitalist- H&P: HPI History of Present Illness Date Seen: 11/13/24 Chief complaint: R hip pain Narrative: Pratik Madera is a 84 year old male with coronary artery disease status post stenting 6 months ago, diabetes mellitus, peripheral neuropathy, atonic bladder with self catheterization, hypertension presents with right hip pain after a fall at home. He had just finished mowing his lawn and was walking into the house. He took a misstep transitioning from walking on the lawn to the gravel driveway and fell. He landed on his right hip. He denies any other injury. He did not hit his head. He did not lose consciousness. Radiographs show right femoral neck fracture. He reports he was otherwise feeling well. No recent illness or other injury. In early April 2024 he underwent coronary stenting to the distal RCA. He also had severe restenoses of a diagonal stent but this could not be revascularized. Echocardiogram at that time showed an ejection fraction of 60%. In 2021 he had a right superficial femoral artery stent. His orthopedic shoe maker has recommended Plavix and aspirin for 1 year following his stent followed by Plavix indefinitely. He reports exertional dyspnea which is stable no exertional chest pain. He reports some problems with gait and balance. He normally walks with a cane though was not using a cane today. He reports his peripheral neuropathy is causing some problems with gait and balance Review of Systems Narrative: He reports a tremor in his hands that has developed in the last several months. The tremor is worse with action and improves at rest consistent with an essential tremor Medical Decision Making Medical Decision Making Has patient completed a Health Care Directive: Yes [facility] Medical History (Updated 11/13/24 @ 22:34 by Pratik Brower MD) Essential tremor ?G25.0 - Essential tremor (ICD-10) Impairment of balance ?R26.89 - Other abnormalities of gait and mobility (ICD-10) Peripheral neuropathy ?G62.9 - Polyneuropathy, unspecified (ICD-10) Hyperlipidemia ?E78.5 - Hyperlipidemia, unspecified (ICD-10) Hypertension ?I10 - Essential (primary) hypertension (ICD-10) Anemia ?D64.9 - Anemia, unspecified (ICD-10) Stage 3 chronic kidney disease ?N18.30 - Chronic kidney disease, stage 3 unspecified (ICD-10) Diabetes mellitus type 2, controlled ?E11.9 - Type 2 diabetes mellitus without complications (ICD-10) Atonic bladder ?N31.2 - Flaccid neuropathic bladder, not elsewhere classified (ICD-10) Peripheral vascular disease ?I73.9 - Peripheral vascular disease, unspecified (ICD-10) Coronary artery disease ?I25.10 - Atherosclerotic heart disease of [place] coronary artery without angina pectoris (ICD-10) Surgical History (Updated 11/13/24 @ 22:27 by Pratik Brower MD) History of laparoscopy ?Z98.890 - Other specified postprocedural states (ICD-10) History of hernia repair ?Z98.890 - Other specified postprocedural states (ICD-10) ?Z87.19 - Personal history of other diseases of the digestive system (ICD-10) History of coronary artery stent placement ?Z95.5 - Presence of coronary angioplasty implant and graft (ICD-10) Family History (Updated 11/13/24 @ 22:28 by Pratik Brower MD) Father Heart disease Stroke Sister Heart disease Brother Heart disease Diabetes Social History (Updated 11/13/24 @ 22:28 by Pratik Brower MD) Narrative: He lives in [place] with his . 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 He does not smoke. He rarely drinks alcohol. Code status is DNR. 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 What is your current living situation?: I presently have a place to live Problems where you live: no known problems In the past 12 months, utilities in danger of being shut off: no In past 12 months, lack of transportation kept you from medical appts, meetings, work, or getting things needed for daily living: no In the past 12 mos, have been you worried that your food would run out before you had money to buy more?: never true In the past 12 mos, the food you bought just didn't last and you didn't have money to buy more?: never true Smoking Status: Never smoker How often do you have a drink containing alcohol: never AUDIT-C Alcohol total score: 0 Non-prescribed substance use: denies use How often does anyone, including family, friends and others, physically hurt you: never How often does anyone, including family, friends and others, insult or talk down to you: never How often does anyone, including family, friends and others, threaten you with harm: never How often does anyone, including family, friends and others, scream or curse at you: never service: No Meds Home Medications and Allergies Home Medications ?Medication ?Instructions ?Recorded ?Confirmed ?Type amlodipine 2.5 mg tablet 2.5 mg PO DAILY 10/25/21 10/25/21 History clopidogrel 75 mg tablet 75 mg PO DAILY 10/25/21 10/25/21 History ferrous sulfate 325 mg (65 mg 325 mg PO DAILY 10/25/21 10/25/21 History iron) tablet (FeroSul) gabapentin 100 mg capsule 100 mg PO Q12H 10/25/21 10/25/21 History glipizide 5 mg tablet 5 mg PO DAILY 10/25/21 10/25/21 History indomethacin 25 mg capsule 25 mg PO DAILY PRN 10/25/21 10/25/21 History ipratropium 20 mcg-albuterol 100 1 puff inhalation Q6H 10/25/21 10/25/21 History mcg/actuation mist for inhalation (Combivent Respimat) isosorbide mononitrate 30 mg 30 mg PO DAILY 10/25/21 10/25/21 History tablet,extended release 24 hr levofloxacin 750 mg tablet 750 mg PO DAILY 10/25/21 10/25/21 History losartan 50 mg tablet 50 mg PO DAILY 10/25/21 10/25/21 History metformin 850 mg tablet 850 mg PO BID 10/25/21 10/25/21 History nitroglycerin 0.4 mg sublingual 0.4 mg sublingual Q5M PRN 10/25/21 10/25/21 History tablet oxycodone 5 mg tablet 5 mg PO HS PRN 10/25/21 10/25/21 History rosuvastatin 20 mg tablet 10 mg PO HS 10/25/21 10/25/21 History doxycycline hyclate 100 mg capsule 100 mg PO BID #14 caps 08/19/23 Rx prednisone 20 mg tablet 20 mg PO BID #10 tabs 08/19/23 Rx Allergies Allergy/AdvReac Type Severity Reaction Status Date / Time atenolol Allergy Unknown Verified 11/13/24 18:27 atorvastatin Allergy Unknown Myalgia Verified 11/13/24 18:27 lisinopril AdvReac Unknown Cough Verified 11/13/24 18:27 metoprolol AdvReac Unknown Headache Verified 11/13/24 18:27 Exam Narrative: Exam Narrative: He is alert, lying on a gurney and appears in no obvious distress. He gives his own history. Head is without trauma. Eyes normal. Oropharynx with small airway. Otherwise normal. Neck is supple without mass or adenopathy. Respirations are clear to auscultation. No wheezing rales or rhonchi. Cardiovascular: S1, S2, regular rate and rhythm. Abdomen: Bowel sounds are present. Abdomen is soft without tenderness or mass. Right lower extremity is shortened and externally rotated. He has intact pulses motion and sensation in both lower extremities although diminished sensation in both feet. No rash. Lora catheter in place. Const: Vital Signs, click to edit/add: Vital Signs - 24 hr 11/13/24 18:24 11/13/24 19:23 11/13/24 20:00 Temperature 97.3 F L Pulse Rate 63 Pulse Rate [Right Pulse Oximeter] 64 Respiratory Rate 16 15 Blood Pressure Blood Pressure [Ri ght Upper Arm] 194/99 H Pulse Oximetry 92 98 98 Oxygen Delivery Me thod Room Air Nasal Cannula Oxygen Flow Rate 2 11/13/24 20:01 Temperature Pulse Rate 68 Pulse Rate [Right Pulse Oximeter] Respiratory Rate 16 Blood Pressure 181/87 H Blood Pressure [Ri ght Upper Arm] Pulse Oximetry 97 Oxygen Delivery Me thod Nasal Cannula Oxygen Flow Rate 2 Documenting provider has reviewed patient's vital signs: yes Hospitalist - H&P: Result Labs Labs: Short CBC 11/13/24 Range/Units 19:23 WBC 6.60 (4.50-11.00) K/uL Hgb 13.1 L (13.5-17.5) gm/dL Hct 37.2 (37.0-53.0) % Plt Count 128 L (140-440) K/uL BMP 11/13/24 19:23 Sodium 138 Potassium 4.5 Chloride 103 Carbon Dioxide 26 BUN 19 Creatinine 1.1 Glucose 214 H Calcium 8.7 Liver Function 11/13/24 Range/Units 19:23 Total Bilirubin 0.7 (0.1-1.5) mg/dL Direct Bilirubin 0.2 (0.0-0.5) mg/dL AST 26 (12-35) U/L ALT 18 (4-50) U/L Alkaline Phosphatase 56 (40-150) U/L Albumin 4.1 (3.3-5.0) g/dL Urine 11/13/24 Range/Units 21:02 Urine Color Yellow (Yellow) Urine Appearance Clear (Clear) Urine pH 6.5 (5.0-8.5) Ur Specific [place] 1.025 (1.000-1.030) Urine Protein Trace A (Negative) Urine Glucose (UA) Negative (Negative) Imaging Hip x-ray: Radiologist's impression: Indication: Fall. Technique: Multiple radiographic views of the right hip. Comparison: None. Findings/impression : Impacted fracture of the right femoral neck with 2.1 centimeters anterior displacement the neck with respect the femoral head. Associated varus deformity of the hip. Significant surrounding soft tissue swelling. Vascular calcifications. Chest x-ray: Radiologist's impression: Indication: : Fall TECHNIQUE: Single-view chest. Comparison x-ray 10/21/2021 FINDINGS: The lungs are clear. The heart, mediastinum and pulmonary vessels are of normal size. There is no evidence of pleural disease. IMPRESSION: Negative chest.
[2024-11-13] MEDS: ROSUVASTATIN CALCIUM 10 MG TABLET 20 MG PO (22:10)
[2024-11-13] MEDS: SODIUM CHLORIDE 0.9 % (FLUSH) 10 ML SYRINGE 5 ML IVF ×2 (22:10→23:08)
[2024-11-13] MEDS: ONDANSETRON 2 MG/ML inj 4 MG IVP (23:08)
[2024-11-14] VITALS (26 sets, daily range): BP systolic 124–183; BP diastolic 60–100; PULSE 65–90; RESP 12–18; TEMP 36.3–37.9; O2SAT 90–99
[2024-11-14] MEDS: ONDANSETRON 2 MG/ML inj 4 MG IVP ×2 (06:03→14:58)
[2024-11-14] MEDS: SODIUM CHLORIDE 0.9 % (FLUSH) 10 ML SYRINGE 5 ML IVF ×3 (06:03→20:53)
[2024-11-14 06:17] LABS: Hematocrit* 35.1 % (37.0-53.0); Hemoglobin* 12.5 gm/dL (13.5-17.5); Immature Granulocytes Abs Auto 0.12 K/uL (0.00-0.30); Immature Granulocytes Pct Auto 1.2 %; Mean Corpuscular HGB Conc 36 gm/dL (32-36); Mean Corpuscular Hemoglobin 32 pg (26-34); Mean Corpuscular Volume 89 fL (80-100); RDW Coefficient of Variation % 12.3 % (11.5-15.5); Red Blood Count* 3.96 m/uL (4.30-5.90); White Blood Count* 9.88 K/uL (4.50-11.00)
[2024-11-14 06:31] LABS: Lymphocytes Absolute Auto 1.10 K/uL (0.90-2.90); Slide Review Reflex No
[2024-11-14 06:46] LABS: Chloride* 104 mmol/L (96-114); Potassium* 4.3 mmol/L (3.6-5.1); Sodium* 136 mmol/L (135-149)
[2024-11-14 06:49] LABS: Anion Gap 8 mEq/L (7-15); Blood Urea Nitrogen* 15 mg/dL (7-30); Carbon Dioxide* 24 mmol/L (20-32); Creatinine* 1.0 mg/dL (0.5-1.5); Estimated Glomerular Filt Rate 73 ml/min
[2024-11-14 06:50] LABS: Calcium* 7.8 mg/dL (8.4-10.6); Glucose* 258 mg/dL (60-115)
--- NOTE | 2024-11-14 06:56 | PC.NURSE ---
pt is pleasant and cooperative. lung sounds clear. 8 to 10 pain reported in right hip, managed with PRN hydromorphone. Pt started at 2L, then weaned to 1L with O2 sats at 93%. NPO since midnight.
--- NOTE | 2024-11-14 09:12 | P.IMPN_ITS ---
Assessment and Plan Assessment and plan (1) Femoral neck fracture: Problem comment: - s/p mechanical fall 11/13/2024 - to OR with Dr. Mueller of Orthopedic surgery today - no history of anesthetic or surgical complications - Active regularly; EF of 60% after stenting March 2024 - monitor post op HGb closely given DAPT and mild thrombocytopenia Status: Acute (2) Diabetes mellitus type 2, controlled: Problem comment: - on Metformin, Sitagliptin, and Glipizide as outpatient (HOLDING as of 11/13) - Hemoglobin A1c on September 05 was 7.5 Status: Acute (3) History of coronary artery stent placement: Problem comment: - total of 5 coronary stents placed, most recently 05/17 in the RCA with EF 60% at that time; then had restenosis of a stent in his diagonal which was not amenable to intervention - [facility] recommends clopidogrel and aspirin for 1 year followed by Clopidogrel indefinitely Status: Acute (4) Atonic bladder: Problem comment: - self catheterization at home, vallecillo placed 11/13 Status: Acute (5) Coronary artery disease: Problem comment: - recurrent interventions with coronary stents (2006, 2021, 2024) Status: Acute (6) Stage 3 chronic kidney disease: Problem comment: - Creatinine on 09/05/24 was 1.3; admission creatinine 1.0 Status: Acute (7) Anemia: Problem comment: - chronic, normocytic, mild - current Hgb 12.5 Status: Acute (8) Peripheral neuropathy: Status: Acute (9) Impairment of balance: Problem comment: - balance difficulties due to peripheral neuropathy prior to hip fracture; may need SNF prior to d/c home Status: Acute (10) Essential tremor: Problem comment: - new diagnosis on 11/13/2024. Consider propranolol if postoperative blood pressure allows Status: Acute Plan - per above - resume DAPT postoperatively - hospitalist team will continue to follow during stay - son and updated bedside, questions answered Subjective Date Seen: 11/14/24 Interval history: Pratik admitted to the hospital last night after mechanical fall at home; imaging revealed an impacted fracture of the right femoral neck with displacement. He is to have operative repair today with Dr. Mueller of Orthopedic surgery. History of CAD with multiple stents placed, most recently spring. He is on DAPT with aspirin and Plavix until March 2025, followed by Clopidogrel indefinitely per Cardiology. Last TTE performed by Cardiology in March 2024, EF 60% at that time. Other comorbidities include [id number] DM2 (last A1C 7.5 08/2024), CKD stage 3, atonic bladder (self-catheterizes at home). Vallecillo placed upon admission 11/13. No history of anesthetic or operative complications, no previous blood transfusions. Typically active at baseline; was coming into the house after mowing the lawn when the fracture occurred. Mild nausea this morning, no other concerns for hospitalist team Exam Narrative: Exam Narrative: GEN: Alert and oriented, laying comfortably in bed. Nontoxic HEENT: EOMIs bilaterally, no scleral icterus CV: RRR, No concerning murmurs, R: LCTA bilaterally without concerning wheezing Ext: Trace edema BLEs Skin: No concerning skin lesions or rashes on exposed skin Neuro: Mild tremor noted, primarily LUE Psych: Appropriate Const: Vital Signs, click to edit/add: Vital Signs - 24 hr 11/13/24 18:24 11/13/24 19:23 11/13/24 20:00 Temperature 97.3 F L Pulse Rate 63 Pulse Rate [Pulse Oximeter] Pulse Rate [Right Pulse Oximeter] 64 Respiratory Rate 16 15 Blood Pressure Blood Pressure [Le ft Arm] Blood Pressure [Ri ght Arm] Blood Pressure [Ri ght Upper Arm] 194/99 H Pulse Oximetry 92 98 98 Oxygen Delivery Me thod Room Air Nasal Cannula Oxygen Flow Rate 2 11/13/24 20:01 11/13/24 21:41 11/13/24 22:10 Temperature Pulse Rate 68 Pulse Rate [Pulse Oximeter] 85 Pulse Rate [Right Pulse Oximeter] Respiratory Rate 16 18 18 Blood Pressure 181/87 H Blood Pressure [Le ft Arm] Blood Pressure [Ri ght Arm] 200/70 H Blood Pressure [Ri ght Upper Arm] Pulse Oximetry 97 92 93 Oxygen Delivery Me thod Nasal Cannula Nasal Cannula Nasal Cannula Oxygen Flow Rate 2 2 2 11/13/24 23:00 11/14/24 00:56 11/14/24 03:48 Temperature 97.8 F 97.8 F Pulse Rate Pulse Rate [Pulse Oximeter] 76 72 Pulse Rate [Right Pulse Oximeter] Respiratory Rate 18 17 Blood Pressure Blood Pressure [Le ft Arm] 173/93 H Blood Pressure [Ri ght Arm] 189/95 H Blood Pressure [Ri ght Upper Arm] Pulse Oximetry 95 94 96 Oxygen Delivery Me thod Room Air Nasal Cannula Nasal Cannula Oxygen Flow Rate 2 2 11/14/24 07:45 11/14/24 07:47 Temperature 97.9 F Pulse Rate Pulse Rate [Pulse Oximeter] 72 Pulse Rate [Right Pulse Oximeter] Respiratory Rate 18 18 Blood Pressure Blood Pressure [Le ft Arm] Blood Pressure [Ri ght Arm] 151/71 H Blood Pressure [Ri ght Upper Arm] Pulse Oximetry 91 91 Oxygen Delivery Me thod Nasal Cannula Nasal Cannula Oxygen Flow Rate 1 1 Labs Labs: Laboratory Results - last 24 hr 11/13/24 11/13/24 11/14/24 19:23 21:02 05:50 WBC 6.60 9.88 RBC 4.20 L 3.96 L Hgb 13.1 L 12.5 L Hct 37.2 35.1 L MCV 89 89 MCH 31 32 MCHC 35 36 RDW Coeff of Elan 12.4 12.3 Plt Count 128 L 104 L Neut % (Auto) 61.5 77.5 H Lymph % (Auto) 27.7 11.2 L [place] % (Auto) 7.9 8.2 Eos % (Auto) 2.0 1.6 Baso % (Auto) 0.3 0.3 Neut # (Auto) 4.06 7.70 H Lymph # (Auto) 1.83 1.10 [place] # (Auto) 0.50 0.80 Eos # (Auto) 0.13 0.16 Baso # (Auto) 0.02 0.03 Abs Immat Gran (auto) 0.04 0.12 Imm/Tot Granulo (auto) 0.6 1.2 Sodium 138 136 Potassium 4.5 4.3 Chloride 103 104 Carbon Dioxide 26 24 Anion Gap 9 8 BUN 19 15 Creatinine 1.1 1.0 Estimated GFR 65 73 Glucose 214 H 258 H Lactate 1.4 Calcium 8.7 7.8 L Total Bilirubin 0.7 Direct Bilirubin 0.2 AST 26 ALT 18 Alkaline Phosphatase 56 Total Protein 6.3 Albumin 4.1 Urine Color Yellow Urine Appearance Clear Urine pH 6.5 Ur Specific [place] 1.025 Urine Protein Trace A Urine Glucose (UA) Negative Urine Ketones Trace A Urine Blood 3+ A Urine Nitrite Positive A Urine Bilirubin Negative Urine Urobilinogen 0.2 Ur Leukocyte Esterase 1+ A Urine RBC >100 A Urine WBC 50-100 A Ur Squamous Epith Cells None Urine Bacteria Many A
--- NOTE | 2024-11-14 11:39 | PM.ORCN ---
History of Present Illness HPI Date Seen: 11/14/24 Consult date: 11/13/24 Chief complaint: R hip pain Narrative: Pratik is an 84 year old male with history of CAD (s/p stenting 04/2024), diabetes mellitus, peripheral neuropathy, atonic bladder with self catheterization, and hypertension who presented after a fall from standing height. He had just finished mowing his lawn and was walking into the house. He took a misstep transitioning from walking on the lawn to the gravel driveway and fell. He landed on his right hip. He denies any other injury. He did not hit his head. He did not lose consciousness. He presented [place] ED. X-rays of the pelvis revealed a displaced right femoral neck fracture. He was admitted to the hospitalist team. Orthopedics was consulted to consider surgical intervention. Reportedly he normally ambulates with a cane for assistance. Otherwise a community ambulator. Plays golf 3 days per week throughout this most recent summer time up until last week. [facility] Medical History (Updated 11/14/24 @ 10:43 by Gladis Stevens MD) Essential tremor ?G25.0 - Essential tremor (ICD-10) Impairment of balance ?R26.89 - Other abnormalities of gait and mobility (ICD-10) Peripheral neuropathy ?G62.9 - Polyneuropathy, unspecified (ICD-10) Hyperlipidemia ?E78.5 - Hyperlipidemia, unspecified (ICD-10) Hypertension ?I10 - Essential (primary) hypertension (ICD-10) Anemia ?D64.9 - Anemia, unspecified (ICD-10) Stage 3 chronic kidney disease ?N18.30 - Chronic kidney disease, stage 3 unspecified (ICD-10) Diabetes mellitus type 2, controlled ?E11.9 - Type 2 diabetes mellitus without complications (ICD-10) Atonic bladder ?N31.2 - Flaccid neuropathic bladder, not elsewhere classified (ICD-10) Peripheral vascular disease ?I73.9 - Peripheral vascular disease, unspecified (ICD-10) Coronary artery disease ?I25.10 - Atherosclerotic heart disease of [place] coronary artery without angina pectoris (ICD-10) Surgical History History of laparoscopy ?Z98.890 - Other specified postprocedural states (ICD-10) History of hernia repair ?Z98.890 - Other specified postprocedural states (ICD-10) ?Z87.19 - Personal history of other diseases of the digestive system (ICD-10) History of coronary artery stent placement ?Z95.5 - Presence of coronary angioplasty implant and graft (ICD-10) Family History Father Heart disease Stroke Sister Heart disease Brother Heart disease Diabetes Social History Narrative: He lives in [place] with his . 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 He does not smoke. He rarely drinks alcohol. Code status is DNR. is healthcare power of consumer attorney. What is your current living situation?: I presently have a place to live Problems where you live: no known problems In the past 12 months, utilities in danger of being shut off: no In past 12 months, lack of transportation kept you from medical appts, meetings, work, or getting things needed for daily living: no In the past 12 mos, have been you worried that your food would run out before you had money to buy more?: never true In the past 12 mos, the food you bought just didn't last and you didn't have money to buy more?: never true Smoking Status: Never smoker How often do you have a drink containing alcohol: never AUDIT-C Alcohol total score: 0 Non-prescribed substance use: denies use How often does anyone, including family, friends and others, physically hurt you: never How often does anyone, including family, friends and others, insult or talk down to you: never How often does anyone, including family, friends and others, threaten you with harm: never How often does anyone, including family, friends and others, scream or curse at you: never service: No Meds Home Medications and Allergies Home Medications ?Medication ?Instructions ?Recorded ?Confirmed ?Type clopidogrel 75 mg tablet 75 mg PO DAILY 10/25/21 11/14/24 History glipizide 5 mg tablet 5 mg PO DAILY 10/25/21 11/14/24 History isosorbide mononitrate 30 mg 30 mg PO DAILY 10/25/21 11/14/24 History tablet,extended release 24 hr losartan 50 mg tablet 50 mg PO DAILY 10/25/21 11/14/24 History nitroglycerin 0.4 mg sublingual 0.4 mg sublingual Q5M PRN 10/25/21 11/14/24 History tablet rosuvastatin 20 mg tablet 10 mg PO HS 10/25/21 11/14/24 History metformin 1,000 mg tablet 1,000 mg PO BID 11/14/24 11/14/24 History ranolazine 500 mg tablet,extended mg PO 11/14/24 History release,12 hr sitagliptin phosphate 100 mg 100 mg PO DAILY 11/14/24 11/14/24 History tablet (Januvia) Allergies Allergy/AdvReac Type Severity Reaction Status Date / Time atenolol Allergy Unknown Verified 11/13/24 18:27 atorvastatin Allergy Unknown Myalgia Verified 11/13/24 18:27 lisinopril AdvReac Unknown Cough Verified 11/13/24 18:27 metoprolol AdvReac Unknown Headache Verified 11/13/24 18:27 Ortho Exam Narrative Exam Narrative: He is alert and oriented to person and place but not is coherent time. He is cooperative with the exam. Supine hospital bed. Right hip exam shows no lacerations, abrasions, we continued changes. Painful about the right groin/hip with any hip or knee range of motion as would be expected. Neurologic intact distally to motor function the superficial and deep peroneal as well as plantar distribution bilaterally. Palpable DP and PT pulse. S Strength and stability testing about the hip deferred. Gait and station also deferred. Const Vital Signs, click to edit/add: Vital Signs - 24 hr 11/13/24 18:24 11/13/24 19:23 11/13/24 20:00 Temperature 97.3 F L Pulse Rate 63 Pulse Rate [Pulse Oximeter] Pulse Rate [Right Pulse Oximeter] 64 Respiratory Rate 16 15 Blood Pressure Blood Pressure [Left Arm] Blood Pressure [Right Arm] Blood Pressure [Right Upper Arm] 194/99 H Pulse Oximetry 92 98 98 Oxygen Delivery Method Room Air Nasal Cannula Oxygen Flow Rate 2 11/13/24 20:01 11/13/24 21:41 11/13/24 22:10 Temperature Pulse Rate 68 Pulse Rate [Pulse Oximeter] 85 Pulse Rate [Right Pulse Oximeter] Respiratory Rate 16 18 18 Blood Pressure 181/87 H Blood Pressure [Left Arm] Blood Pressure [Right Arm] 200/70 H Blood Pressure [Right Upper Arm] Pulse Oximetry 97 92 93 Oxygen Delivery Method Nasal Cannula Nasal Cannula Nasal Cannula Oxygen Flow Rate 2 2 2 11/13/24 23:00 11/14/24 00:56 11/14/24 03:48 Temperature 97.8 F 97.8 F Pulse Rate Pulse Rate [Pulse Oximeter] 76 72 Pulse Rate [Right Pulse Oximeter] Respiratory Rate 18 17 Blood Pressure Blood Pressure [Left Arm] 173/93 H Blood Pressure [Right Arm] 189/95 H Blood Pressure [Right Upper Arm] Pulse Oximetry 95 94 96 Oxygen Delivery Method Room Air Nasal Cannula Nasal Cannula Oxygen Flow Rate 2 2 11/14/24 07:45 11/14/24 07:47 11/14/24 10:37 Temperature 97.9 F 98.7 F Pulse Rate Pulse Rate [Pulse Oximeter] 72 69 Pulse Rate [Right Pulse Oximeter] Respiratory Rate 18 18 16 Blood Pressure Blood Pressure [Left Arm] Blood Pressure [Right Arm] 151/71 H 165/72 H Blood Pressure [Right Upper Arm] Pulse Oximetry 91 91 90 Oxygen Delivery Method Nasal Cannula Nasal Cannula Nasal Cannula Oxygen Flow Rate 1 1 1 Results Labs Labs: Laboratory Results - last 48 hr 11/13/24 11/13/24 11/14/24 19:23 21:02 05:50 WBC 6.60 9.88 RBC 4.20 L 3.96 L Hgb 13.1 L 12.5 L Hct 37.2 35.1 L MCV 89 89 MCH 31 32 MCHC 35 36 RDW Coeff of [place]an 12.4 12.3 Plt Count 128 L 104 L Neut % (Auto) 61.5 77.5 H Lymph % (Auto) 27.7 11.2 L [place] % (Auto) 7.9 8.2 Eos % (Auto) 2.0 1.6 Baso % (Auto) 0.3 0.3 Neut # (Auto) 4.06 7.70 H Lymph # (Auto) 1.83 1.10 [place] # (Auto) 0.50 0.80 Eos # (Auto) 0.13 0.16 Baso # (Auto) 0.02 0.03 Abs Immat Gran (auto) 0.04 0.12 Imm/Tot Granulo (auto) 0.6 1.2 Sodium 138 136 Potassium 4.5 4.3 Chloride 103 104 Carbon Dioxide 26 24 Anion Gap 9 8 BUN 19 15 Creatinine 1.1 1.0 Estimated GFR 65 73 Glucose 214 H 258 H Lactate 1.4 Calcium 8.7 7.8 L Total Bilirubin 0.7 Direct Bilirubin 0.2 AST 26 ALT 18 Alkaline Phosphatase 56 Total Protein 6.3 Albumin 4.1 Urine Color Yellow Urine Appearance Clear Urine pH 6.5 Ur Specific [place] 1.025 Urine Protein Trace A Urine Glucose (UA) Negative Urine Ketones Trace A Urine Blood 3+ A Urine Nitrite Positive A Urine Bilirubin Negative Urine Urobilinogen 0.2 Ur Leukocyte Esterase 1+ A Urine RBC >100 A Urine WBC 50-100 A Ur Squamous Epith Cells None Urine Bacteria Many A Diagnostic results Additional Comments: AP pelvis as well as AP and cross-table lateral views of the right hip from [facility] dated 11/13/2024 were ordered by different provider and reviewed by me. This demonstrates a displaced right femoral neck fracture with commensurate varus, external rotation, and shortening to the right femur. There is otherwise decent joint space preservation with only mild joint space narrowing and small osteophytosis. Assessment and Plan Assessment and plan (1) Femoral neck fracture: Problem comment: - s/p mechanical fall 11/13/2024 - to OR with Dr. Mueller of Orthopedic surgery today - no history of anesthetic or surgical complications - Active regularly; EF of 60% after stenting March 2024 - monitor post op HGb closely given DAPT and mild thrombocytopenia Status: Acute Total time spent: Total time spent is greater than 50% in coordination of care (as documented) at patient's floor/unit and/or counseling patient: (2) Diabetes mellitus type 2, controlled: Problem comment: - on Metformin, Sitagliptin, and Glipizide as outpatient (HOLDING as of 11/13) - Hemoglobin A1c on September 05 was 7.5 Status: Acute Total time spent: Total time spent is greater than 50% in coordination of care (as documented) at patient's floor/unit and/or counseling patient: (3) History of coronary artery stent placement: Problem comment: - total of 5 coronary stents placed, most recently 05/17 in the RCA with EF 60% at that time; then had restenosis of a stent in his diagonal which was not amenable to intervention - Client Professional recommends clopidogrel and aspirin for 1 year followed by Clopidogrel indefinitely Status: Acute Total time spent: Total time spent is greater than 50% in coordination of care (as documented) at patient's floor/unit and/or counseling patient: (4) Atonic bladder: Problem comment: - self catheterization at home, vallecillo placed 11/13 Status: Acute Total time spent: Total time spent is greater than 50% in coordination of care (as documented) at patient's floor/unit and/or counseling patient: (5) Coronary artery disease: Problem comment: - recurrent interventions with coronary stents (2006, 2021, 2024) Status: Acute Total time spent: Total time spent is greater than 50% in coordination of care (as documented) at patient's floor/unit and/or counseling patient: (6) Stage 3 chronic kidney disease: Problem comment: - Creatinine on 09/05/24 was 1.3; admission creatinine 1.0 Status: Acute Total time spent: Total time spent is greater than 50% in coordination of care (as documented) at patient's floor/unit and/or counseling patient: (7) Anemia: Problem comment: - chronic, normocytic, mild - current Hgb 12.5 Status: Acute Total time spent: Total time spent is greater than 50% in coordination of care (as documented) at patient's floor/unit and/or counseling patient: (8) Peripheral neuropathy: Status: Acute Total time spent: Total time spent is greater than 50% in coordination of care (as documented) at patient's floor/unit and/or counseling patient: (9) Impairment of balance: Problem comment: - balance difficulties due to peripheral neuropathy prior to hip fracture; may need SNF prior to d/c home Status: Acute Total time spent: Total time spent is greater than 50% in coordination of care (as documented) at patient's floor/unit and/or counseling patient: (10) Essential tremor: Problem comment: - new diagnosis on 11/13/2024. Consider propranolol if postoperative blood pressure allows Status: Acute Total time spent: Total time spent is greater than 50% in coordination of care (as documented) at patient's floor/unit and/or counseling patient: Plan It was helpful to have a conversation with the patient regarding this right femoral neck fracture that is displaced. Given his decent joint space preservation surrounding it, and his relatively active lifestyle (golfing 3 days per week), I do think surgery is indicated. We did discuss the pros and cons of both the nonoperative and surgical route. This includes local risks (e.g. Infection, wound healing issues, [aseptic loosening, instability, fracture]) as well as systemic risks (e.g. VTE, [place], stroke). after hearing this, the patient elects to proceed with surgery. His family is in the room and supports this decision. We will plan for a right hip bipolar hemiarthroplasty today ( 11/14/2024). Following the surgery anticipate PT and OT consult will be of value to both Instruct and provide assistance. Social work consult for discharge planning. I would anticipate he would be able to weight bear as tolerated operative extremity. I have coordinated care with the anesthesia team for the intended procedure later today.
--- NOTE | 2024-11-14 12:15 | REH.OT ---
OT orders received. Pt to have surgery this afternoon. Will evaluate pt on 11/15/24 if medically appropriate.
--- NOTE | 2024-11-14 13:03 | CRLHL7_ITS ---
For Patients: As a result of the Cures Act, medical imaging exams and procedure reports are released immediately into your electronic medical record. You may view this report before your referring provider. If you have questions, please contact your health care provider. INDICATION: Right hip postop total hip arthroplasty. TECHNIQUE: Pelvis one view. Right hip one view. COMPARISON: 11/13/2024. FINDINGS: Right hip arthroplasty appears appropriately positioned. Soft tissue gas consistent with recent surgery. No acute osseous abnormality or other significant interval change. IMPRESSION: Expected changes status post right hip arthroplasty. Dictated by Emir Bangura MD @ 11/16/2024 8:29:44 PM (Electronically Signed)
[2024-11-14] MEDS: TRANEXAMIC ACID 100 MG/ML INJ 1000 MG IV (13:05)
--- NOTE | 2024-11-14 13:23 | CRLHL7_ITS ---
For Patients: As a result of the Century Cures Act, medical imaging exams and procedure reports are released immediately into your electronic medical record. You may view this report before your referring provider. If you have questions, please contact your health care provider. HISTORY: Intraoperative. TECHNIQUE: Fluoroscopy provided intraoperatively. One spot film acquired. COMPARISON: 11/13/2024. FINDINGS: Spot film demonstrates an intact bipolar right hip arthroplasty. The components appear appropriately seated. IMPRESSION: 1. Intact bipolar right hip arthroplasty. Dictated by Damir España MD @ 11/16/2024 6:12:20 AM (Electronically Signed)
--- NOTE | 2024-11-14 13:30 | P.ANES_ITS ---
Anesthesia Charges Start Date/Time Anesthesia Start Date: 11/14/24 Anesthesia Start Time: 12:44 Stop Date/Time Anesthesia Stop Date: 11/14/24 Anesthesia Stop Time: 14:37 Summary Extremes of Age - Over 70 or under 1: MDA Coding CPT Codes CPT Codes: ANESTH SURGERY OF FEMUR - 55335 ([id number]) P3 - PATIENT W/SEVERE SYS DISEASE, QK - ALTERATION WORKER 2-4 CNCRNT ANES PROC, QX - EMERGENCY DEPARTMENT RN SVC W/ MD MED DIRECTION Additional Codes: Summary - Extremes of Age - Over 70 or under 1: MDA ([id number])
--- NOTE | 2024-11-14 13:30 | W.ANESCHARGE ---
Anesthesia Charges Start Date/Time Anesthesia Start Date: 11/14/24 Anesthesia Start Time: 12:44 Stop Date/Time Anesthesia Stop Date: 11/14/24 Anesthesia Stop Time: 14:37 Summary Extremes of Age - Over 70 or under 1: MDA Coding CPT Codes CPT Codes: ANESTH SURGERY OF FEMUR - 78140 ([id number]) P3 - PATIENT W/SEVERE SYS DISEASE, QK - JOINT CREASER 2-4 CNCRNT ANES PROC, QX - SOCIAL WORKER PSYCHIATRIC SVC W/ MD MED DIRECTION Additional Codes: Summary - Extremes of Age - Over 70 or under 1: MDA ([id number])
--- NOTE | 2024-11-14 13:30 | SUR.OPER ---
Gold Ring removed from patient's finger prior to surgery procedure due to using catuery during procedure. Placed in patient's chart and sent to PACU with patient.
--- NOTE | 2024-11-14 14:13 | P.ORPRC_ITS ---
Procedure Note Date of procedure: 11/14/24 Procedure: PREOPERATIVE DIAGNOSIS: 1. Right femoral neck fracture, displaced POSTOPERATIVE DIAGNOSIS: 1. Right femoral neck fracture, displaced PROCEDURE: 1. Right hip bipolar hemiarthroplasty, anterior approach 2. Intraoperative fluoroscopy interpreted by Michael Mueller M.D. for intraoperative evaluation of hip hemiarthroplasty implant positioning and leg length/offset evaluation. Fluoroscopy time was 10.1 seconds. SURGEON: Michael Mueller MD. IT RISK AND ASSURANCE SENIOR MANAGER: Kevin Christianson PA-C; CADEN Appiah - Of note, skilled assistants were critical for this case to aid in patient positioning, tissue retraction, limb manipulation/positioning, and closure. ANESTHESIA: General endotracheal anesthetic EBL: 200 ml IMPLANTS: DePuy J&J uncemented right hip bipolar hemiarthroplasty Femoral Actis standard offset stem, size 7 Bipolar head with 28 mm inner diameter metal ball (+1.5) Polyethylene interface and 53 mm outer metal shell. COMPLICATIONS: None evident INDICATIONS: The patient is a pleasant 84-year-old male who initially sustained a right hip injury recently after a fall from a standing height falling onto the affected side. This resulted in a displaced femoral neck fracture. Given previous ambulatory status and current pain for the patient along with dysfunction, surgery is indicated for a hip hemiarthroplasty. FINDINGS: Displaced right femoral neck fracture. Well-preserved articular cartilage within the acetabulum. Hemarthrosis encountered upon entering the joint capsule. DESCRIPTION OF PROCEDURE: Following a thorough discussion of risks, benefits, and alternatives consent was obtained and the right hip was marked. The patient was brought to the operating room and placed supine on the operating table. Induction of anesthesia was undertaken. 2 g IV Ancef and 1 g tranexamic acid was administered within 1 hr of incision preoperatively. Proper time-out was performed identifying proper patient, site, procedure. The operative extremity was prepped and draped in the appropriate sterile fashion using ChloraPrep after the patient was positioned on the [place] table with head in neutral alignment and all bony prominences well padded. A longitudinal incision was made starting approximately 1 cm distal to the ASIS, and 2-3 cm lateral. The incision was extended distally aiming toward the fibular head. Sharp incision through skin and bovie cautery through the subcutaneous tissue allowed identification of the TFL fascia. This was sharply divided, and the fascia bluntly released from the muscle fibers as we dissected medial. Upon coming to the medial border, we were able to retract the TFL laterally, and penetrated the deeper fascia and identify the crossing circumflex vessels. These were ligated/cauterized. The rectus was elevated from the capsule, and retractors placed laterally and medially along the femoral neck to help with visualization of the capsule. We then performed an inverted T capsulotomy. The capsule was tagged for later repair. Retractors were placed inside the capsule. The femoral neck was visualized after releasing medially down to the lesser trochanter, along the saddle laterally, and approaching the acetabulum. The femoral neck cut was freshened with a sagittal saw. The acetabulum was inspected and found to be in excellent condition with healthy articular cartilage. Any remaining bony fracture fragments were removed. The ligamentum was excised. Attention was turned to the femoral preparation. The limb was extended, externally rotated, and adducted. The posteromedial capsule was released, as retractors were placed allowing excellent access to the proximal femur. Initially a paperboard box maker was utilized, then a canal finder, followed by a rasp and sequentially larger broaches. We broached up to the size noted above and found it to have excellent rotational control. Various head/neck combinations were trialed with a goal of matching the contralateral limbs leg length and offset, as confirmed with intraoperative fluoroscopy, in addition to achieving appropriate stability. Trial implants were removed, the real femoral stem inserted, as was the appropriate head(s). After reducing, the leg was placed through range of motion and stability was confirmed in various directions and with toggle/traction of the femoral component. Closure of the capsule was performed with #1 PDS. Bleeding was confirmed to be controlled at this stage, and the TFL fascia was closed with #0 strata fix. Subcutaneous, and subcuticular closure was performed with 2-0 Stratafix and 4-0 Stratafix, respectively. Dressings were applied, and the patient was awoken from anesthesia and transferred the PACU in stable condition. Skilled assistants were critical for this case to aid in patient positioning, tissue retraction, acetabular and proximal femoral exposure, limb manipulation/positioning, dislocation/relocation, patient safety, and closure. PLAN: 1. Weight bear as tolerated operative extremity. 2. 23 hr perioperative antibiotics. 3. Ice. 4. PT/OT consults for ambulation assistance/mobility education. 5. Social work consult for discharge planning. 6. DVT prophylaxis with at SCDs and Plavix/aspirin +/- Xarelto x5 days, if de emed appropriate by hospitalist team.
--- NOTE | 2024-11-14 14:32 | SUR.OPER ---
bruising on right thigh lateral where drapes were positioned during surgical procedure, pa notified
--- NOTE | 2024-11-14 14:37 | P.ANES_ITS ---
Anesthesia Charges Start Date/Time Anesthesia Start Date: 11/14/24 Anesthesia Start Time: 12:44 Stop Date/Time Anesthesia Stop Date: 11/14/24 Anesthesia Stop Time: 14:37 Summary Extremes of Age - Over 70 or under 1: PHOTO LAB SPECIALIST Coding CPT Codes CPT Codes: ANESTH SURGERY OF FEMUR - 83917 ([id number]) P3 - PATIENT W/SEVERE SYS DISEASE, QK - FRONT DESK ADMINISTRATOR 2-4 CNCRNT ANES PROC, QX - PHOTO LAB SPECIALIST SVC W/ MD MED DIRECTION Additional Codes: Summary - Extremes of Age - Over 70 or under 1: PHOTO LAB SPECIALIST ([id number])
--- NOTE | 2024-11-14 14:37 | W.ANESCHARGE ---
Anesthesia Charges Start Date/Time Anesthesia Start Date: 11/14/24 Anesthesia Start Time: 12:44 Stop Date/Time Anesthesia Stop Date: 11/14/24 Anesthesia Stop Time: 14:37 Summary Extremes of Age - Over 70 or under 1: DEVELOPMENT REP Coding CPT Codes CPT Codes: ANESTH SURGERY OF FEMUR - 99219 ([id number]) P3 - PATIENT W/SEVERE SYS DISEASE, QK - SANITATION SUPERVISOR 2-4 CNCRNT ANES PROC, QX - DEVELOPMENT REP SVC W/ MD MED DIRECTION Additional Codes: Summary - Extremes of Age - Over 70 or under 1: DEVELOPMENT REP ([id number])
--- NOTE | 2024-11-14 15:21 | SUR.PHASEI ---
patient met discharge criteria per anesthesia
[2024-11-14] MEDS: INSULIN ASPART 100 UNIT/ML SUBCUT ×2 (16:55→21:39)
[2024-11-14] MEDS: ACETAMINOPHEN 325 MG TABLET 650 MG PO (17:24)
[2024-11-14] MEDS: METFORMIN 1,000 MG TABLET 1000 MG PO (18:09)
--- NOTE | 2024-11-14 18:28 | PC.NURSE ---
End of shift [id number]: Pt AxOx3, cooperative, and pleasant with cares. Pt underwent surgery?and arrived back to the unit @ 1515. NS running @ 125 ml/hr. Tolerating advanced diet well. Lora patent and draining. Drinking fluids. Active ice to the R hip. Dressing remains CDI, CMS intact. Pain is being managed with PRN Tylenol, active ice, and repositioning. Nausea is being managed with an aromatherapy patch and PRN Zofran. Pt requiring 0-2L NC for sats remaining >90%. Family at bedside. Call light within reach.??
[2024-11-14] MEDS: CEFAZOLIN 2 GM in 0.9 % SODIUM CHLORIDE Mini-bag 100 ML IVPB (19:29)
[2024-11-14] MEDS: SENNOSIDES 1 TAB TABLET 2 TAB PO (20:53)
[2024-11-14] MEDS: ROSUVASTATIN CALCIUM 10 MG TABLET 20 MG PO (20:53)
[2024-11-14] MEDS: ACETAMINOPHEN 500 MG TABLET 1000 MG PO (23:03)
[2024-11-15] VITALS (7 sets, daily range): BP systolic 115–145; BP diastolic 53–70; PULSE 65–85; RESP 16–20; TEMP 36.7–36.9; O2SAT 90–94
[2024-11-15] MEDS: CEFAZOLIN 2 GM in 0.9 % SODIUM CHLORIDE Mini-bag 100 ML IVPB ×2 (02:44→10:52)
[2024-11-15] MEDS: ACETAMINOPHEN 500 MG TABLET 1000 MG PO ×4 (05:22→23:47)
[2024-11-15 06:37] LABS: Hematocrit* 30.8 % (37.0-53.0); Hemoglobin* 10.8 gm/dL (13.5-17.5); Immature Granulocytes Abs Auto 0.09 K/uL (0.00-0.30); Immature Granulocytes Pct Auto 1.0 %; Mean Corpuscular HGB Conc 35 gm/dL (32-36); Mean Corpuscular Hemoglobin 32 pg (26-34); Mean Corpuscular Volume 90 fL (80-100); RDW Coefficient of Variation % 12.7 % (11.5-15.5); Red Blood Count* 3.42 m/uL (4.30-5.90); White Blood Count* 9.20 K/uL (4.50-11.00)
[2024-11-15 06:44] LABS: Lymphocytes Absolute Auto 0.80 K/uL (0.90-2.90); Slide Review Reflex No
--- NOTE | 2024-11-15 06:48 | PC.NURSE ---
End of shift report [id number]: VSS. Afebrile. Denies nausea. On 1-0.5 L O2 via NC to keep O2 sats above 90% per MD orders. Rates pain from 0-8, prn pain meds offered and given with relief. Pt stood up at bedside 2A, GB, W and pt was notably shaking and was unable to take any steps, pt then stated he was feeling dizzy. Pt has bilat hand tremors which he states is chronic. The underwriter had the patient sit down and then took vitals which was similar to previous VS. Pt stated once he sat down the dizziness resolved. Pt has a superficial skin tear on his coccyx, mepilex is C/D/I. R hip dressing is C/D/I. Intermittent ice applied. Pt is tolerating regular diet. Lora is intact and patent. Bed alarm on, call light within reach.?
[2024-11-15 06:54] LABS: Chloride* 107 mmol/L (96-114); Potassium* 4.0 mmol/L (3.6-5.1); Sodium* 133 mmol/L (135-149)
[2024-11-15 06:57] LABS: Anion Gap 4 mEq/L (7-15); Blood Urea Nitrogen* 10 mg/dL (7-30); Calcium* 7.1 mg/dL (8.4-10.6); Carbon Dioxide* 22 mmol/L (20-32); Creatinine* 1.1 mg/dL (0.5-1.5); Estimated Glomerular Filt Rate 65 ml/min; Glucose* 244 mg/dL (60-115)
[2024-11-15] MEDS: METFORMIN 1,000 MG TABLET 1000 MG PO ×2 (08:30→17:48)
[2024-11-15] MEDS: LOSARTAN POTASSIUM 50 MG TABLET PO (08:30)
[2024-11-15] MEDS: SITAGLIPTIN PHOSPHATE 50 MG TABLET 100 MG PO (08:30)
[2024-11-15] MEDS: SENNOSIDES 1 TAB TABLET 2 TAB PO ×2 (08:30→20:46)
[2024-11-15] MEDS: RIVAROXABAN 10 MG TABLET PO (08:30)
[2024-11-15] MEDS: PROPRANOLOL 20 MG TABLET PO (08:30)
[2024-11-15] MEDS: SODIUM CHLORIDE 0.9 % (FLUSH) 10 ML SYRINGE 5 ML IVF ×2 (08:31→20:47)
[2024-11-15] MEDS: INSULIN ASPART 100 UNIT/ML SUBCUT ×4 (08:32→20:47)
[2024-11-15] MEDS: CLOPIDOGREL 75 MG TABLET PO (08:34)
--- NOTE | 2024-11-15 11:34 | P.ORPN_ITS ---
Subjective Subjective Date Seen: 11/15/24 Principal diagnosis: POD 1 right bipolar hemiarthroplasty, uncemented - anterior approach Interval history: Patient reports doing okay as long as he is sitting down. Has been having lightheadedness and dizziness when standing, including an episode of this working with therapy this morning. He was gently sat back down in the recliner without incident and continued PT exercises from recliner. No acute events over night. Pain managed with scheduled and PRN medications, ice. DVT prophylaxis: Rivaroxaban and clopidogrel, SCDs, walking. Denies fevers, chills, aches, N/V, CP, SOB/MONCADA. Ortho Exam Narrative Exam Narrative: -Patient appears comfortable in recliner; no apparent acute distress -Alert and oriented times 3 -Operative hip swollen; soft tissues supple; no obvious erythema. Ecchymosis minimal. Warmth appropriate -Surgical dressing clean, dry, intact; no obvious drainage, no erythematous streaking peripheral to the bandage -Bilateral calves soft and supple; no significant swelling, edema, tenderness, erythema, discoloration, warmth, or palpable cords -2+ DP/PT pulses, intact dermatomes and myotomes distally (5/5 strength). No numbness about the lateral femoral cutaneous nerve distribution. Const Vital Signs, click to edit/add: Vital Signs - 24 hr 11/14/24 14:32 11/14/24 14:35 11/14/24 14:40 Temperature 100.2 F H 100.2 F H 100.2 F H Pulse Rate 78 72 70 Pulse Rate [Pulse Oximeter] Respiratory Rate 12 17 13 Blood Pressure 151/68 H 163/68 H 154/73 H Blood Pressure [Left Arm] Blood Pressure [Right Arm] Pulse Oximetry 94 96 98 Oxygen Delivery Method Nasal Cannula Nasal Cannula Nasal Cannula Oxygen Flow Rate 5 5 5 11/14/24 14:45 11/14/24 14:50 11/14/24 14:55 Temperature 100.2 F H 100.2 F H 97.3 F L Pulse Rate 76 68 67 Pulse Rate [Pulse Oximeter] Respiratory Rate 15 12 12 Blood Pressure 156/100 H 183/84 H 179/81 H Blood Pressure [Left Arm] Blood Pressure [Right Arm] Pulse Oximetry 99 93 92 Oxygen Delivery Method Nasal Cannula Room Air Room Air Oxygen Flow Rate 5 11/14/24 15:00 11/14/24 15:15 11/14/24 15:30 Temperature 97.3 F L 97.8 F 97.7 F Pulse Rate 65 67 74 Pulse Rate [Pulse Oximeter] Respiratory Rate 12 16 16 Blood Pressure 176/73 H 171/70 H 157/74 H Blood Pressure [Left Arm] Blood Pressure [Right Arm] Pulse Oximetry 93 93 92 Oxygen Delivery Method Room Air Room Air Nasal Cannula Oxygen Flow Rate 2 11/14/24 15:45 11/14/24 16:00 11/14/24 16:15 Temperature 98.1 F 97.6 F 98 F Pulse Rate 67 67 68 Pulse Rate [Pulse Oximeter] Respiratory Rate 16 16 16 Blood Pressure 152/63 H 145/60 H 147/60 H Blood Pressure [Left Arm] Blood Pressure [Right Arm] Pulse Oximetry 94 93 92 Oxygen Delivery Method Nasal Cannula Nasal Cannula Nasal Cannula Oxygen Flow Rate 1 1 1 11/14/24 16:45 11/14/24 17:15 11/14/24 18:15 Temperature 98.1 F 97.6 F 98.7 F Pulse Rate 71 73 75 Pulse Rate [Pulse Oximeter] Respiratory Rate 16 18 18 Blood Pressure 151/65 H 161/66 H 169/67 H Blood Pressure [Left Arm] Blood Pressure [Right Arm] Pulse Oximetry 94 96 91 Oxygen Delivery Method Nasal Cannula Room Air Room Air Oxygen Flow Rate 1 11/14/24 19:00 11/14/24 19:15 11/14/24 20:15 Temperature 98.8 F 98.8 F 99 F Pulse Rate 68 83 Pulse Rate [Pulse Oximeter] 68 Respiratory Rate 16 16 18 Blood Pressure 152/78 H 150/61 H Blood Pressure [Left Arm] 152/78 H Blood Pressure [Right Arm] Pulse Oximetry 95 95 92 Oxygen Delivery Method Nasal Cannula Nasal Cannula Nasal Cannula Oxygen Flow Rate 1 1 1 11/14/24 21:15 11/14/24 23:00 11/14/24 23:00 Temperature 98.3 F 98.2 F Pulse Rate 80 Pulse Rate [Pulse Oximeter] 86 Respiratory Rate 18 18 16 Blood Pressure 158/61 H Blood Pressure [Left Arm] Blood Pressure [Right Arm] 149/72 H Pulse Oximetry 90 94 Oxygen Delivery Method Nasal Cannula Nasal Cannula Oxygen Flow Rate 0.5 0.5 11/14/24 23:00 11/14/24 23:50 11/15/24 02:56 Temperature 98.5 F Pulse Rate Pulse Rate [Pulse Oximeter] 90 Respiratory Rate 16 16 Blood Pressure Blood Pressure [Left Arm] 124/66 Blood Pressure [Right Arm] 143/70 H Pulse Oximetry 94 96 92 Oxygen Delivery Method Nasal Cannula Nasal Cannula Nasal Cannula Oxygen Flow Rate 0.5 0.5 0.5 11/15/24 07:00 11/15/24 07:00 Temperature 98.1 F Pulse Rate Pulse Rate [Pulse Oximeter] 85 Respiratory Rate 20 Blood Pressure Blood Pressure [Left Arm] 145/69 H Blood Pressure [Right Arm] Pulse Oximetry 94 94 Oxygen Delivery Method Room Air Room Air Oxygen Flow Rate Assessment and Plan Assessment and plan (1) Femoral neck fracture: Problem details: - s/p mechanical fall 11/13/2024 - no history of anesthetic or surgical complications - Active regularly; EF of 60% after stenting March 2024 - monitor post op HGb closely given DAPT and mild thrombocytopenia Status: Acute (2) Diabetes mellitus type 2, controlled: Problem details: - on Metformin, Sitagliptin, and Glipizide as outpatient (HOLDING as of 11/13) - Hemoglobin A1c on September 05 was 7.5 Status: Acute (3) History of coronary artery stent placement: Problem details: - total of 5 coronary stents placed, most recently 05/17 in the RCA with EF 60% at that time; then had restenosis of a stent in his diagonal which was not amenable to intervention - Pediatric Genetic Counselor recommends clopidogrel and aspirin for 1 year followed by Clopidogrel indefinitely Status: Acute (4) Atonic bladder: Problem details: - self catheterization at home, vallecillo placed 11/13 Status: Acute (5) Coronary artery disease: Problem details: - recurrent interventions with coronary stents (2006, 2021, 2024) Status: Acute (6) Stage 3 chronic kidney disease: Problem details: - Creatinine on 09/05/24 was 1.3; admission creatinine 1.0 Status: Acute (7) Anemia: Problem details: - chronic, normocytic, mild - current Hgb 12.5 Status: Acute (8) Peripheral neuropathy: Status: Acute (9) Impairment of balance: Problem details: - balance difficulties due to peripheral neuropathy prior to hip fracture; may need SNF prior to d/c home Status: Acute (10) Essential tremor: Problem details: - new diagnosis on 11/13/2024. Consider propranolol if postoperative blood pressure allows Status: Acute Plan - Complete 23 hour perioperative antibiotics. - PT/OT consult for education and assistance. - Social work consult for discharge planning - recommend SNF - Prescribed analgesics as needed - DVT prophylaxis: Rivaroxaban and clopidogrel, walking, and SCDs. Rivaroxaban course will be 5 days - Anticipation is for discharge to SNF once patient remains medically stable, pain is controlled, and they are reasonably safe with mobilization.
[2024-11-15] MEDS: LIDOCAINE 5% PATCH 1 PATCH TRANSDERMA (13:02)
--- NOTE | 2024-11-15 13:25 | PC.SOCIAL ---
Addendum entered and electronically signed by Radha Varela LCSW 11/15/24 15:51: VERNON received update from Lyssa at [facility] that they can accept patient on , pending prior auth. VERNON explained that [facility] still reviewing and will keep her updated on when she hears from them. VERNON informed by Yolande at [facility] that they are currently reviewing patient and do have one open bed for Thursday. SW sent OT note and update per request. SW awaiting response on whether they can accept or not. SW informed patient of acceptance to [facility] and that [facility] is pending. At this time patient would like to wait for [facility] to see if they can accept prior to [facility]. VERNON provided handoff to supervisor heading and added her on to secure email communication with Yolande and Lyssa in case updates come in still this afternoon. Original Note: Discharge planning: VERNON spoke with patient and patient's about TCU placement. Patient is in agreement that he needs this. Patient's first choice is [facility] and second is [facility]. VERNON sent referrals to Yolande at [facility] and Lyssa at [facility] and is awaiting a response. VERNON informed patient and to start discussing more options as these facilities may not have availability. Patient and expressed understanding.
--- NOTE | 2024-11-15 13:52 | PM.IMPN1 ---
Assessment and Plan Assessment and plan (1) Femoral neck fracture: Problem comment: - s/p mechanical fall 11/13/2024 - Right hip bipolar hemiarthroplasty with Dr. Mueller on 11/14/24 Status: Acute (2) Diabetes mellitus type 2, controlled: Problem comment: - on Metformin, Sitagliptin, and Glipizide as outpatient (held on admission, restarted 11/15), SSI as well - Hemoglobin A1c on September 05 was 7.5 Status: Acute (3) History of coronary artery stent placement: Problem comment: - total of 5 coronary stents placed, most recently 05/17 in the RCA with EF 60% at that time; then had restenosis of a stent in his diagonal which was not amenable to intervention - Elementary School Professional recommends clopidogrel and aspirin for 1 year followed by Clopidogrel indefinitely Status: Acute (4) Atonic bladder: Problem comment: - self catheterization at home, vallecillo placed 11/13 Status: Acute (5) Coronary artery disease: Problem comment: - recurrent interventions with coronary stents (2006, 2021, 2024) Status: Acute (6) Stage 3 chronic kidney disease: Problem comment: - Creatinine on 09/05/24 was 1.3; admission creatinine 1.0 Status: Acute (7) Anemia: Problem comment: - chronic, normocytic, mild - admission Hgb 12.5 --> postoperative Hgb 10.8 Status: Acute (8) Peripheral neuropathy: Status: Acute (9) Impairment of balance: Problem comment: - balance difficulties due to peripheral neuropathy prior to hip fracture; may need SNF prior to d/c home Status: Acute (10) Essential tremor: Problem comment: - new diagnosis on 11/13/2024, Propanolol initiated 11/15 Status: Acute Plan - per above, awaiting placement - son and updated bedside, questions answered Subjective Date Seen: 11/15/24 Interval history: Rosales was admitted to the hospital last night after mechanical fall at home; imaging revealed an impacted fracture of the right femoral neck with displacement. He is POD #1 from R hip bipolar hemiarthroplasty with Dr. Mueller of Orthopedic surgery. No operative or anesthetic complications during procedure. History of CAD with multiple stents placed, most recently spring. He is on DAPT with aspirin and Plavix until March 2025, followed by Clopidogrel indefinitely per Cardiology. Last TTE performed by Cardiology in March 2024, EF 60% at that time. Has been placed on 5 days of Xarelto postoperatively, will continue Plavix with this but holding ASA until Xarelto course is completed. This morning, Rosales has some pain in his hip. No other concerns for hospitalist team. Working with therapies, SNF recommended. Exam Narrative: Exam Narrative: GEN: Alert and oriented, laying in bed, nontoxic but appears uncomfortable HEENT: EOMIs bilaterally, no scleral icterus CV: RRR, No concerning murmurs R: LCTA bilaterally Ext: Incision on hip is covered, no concerning bruising around bandage, no oozing through bandage Skin: No concerning skin lesions or rashes on exposed skin Psych: Appropriate Const: Vital Signs, click to edit/add: Vital Signs - 24 hr 11/14/24 14:32 11/14/24 14:35 11/14/24 14:40 Temperature 100.2 F H 100.2 F H 100.2 F H Pulse Rate 78 72 70 Pulse Rate [Pulse Oximeter] Respiratory Rate 12 17 13 Blood Pressure 151/68 H 163/68 H 154/73 H Blood Pressure [Le ft Arm] Blood Pressure [Ri ght Arm] Pulse Oximetry 94 96 98 Oxygen Delivery Me thod Nasal Cannula Nasal Cannula Nasal Cannula Oxygen Flow Rate 5 5 5 11/14/24 14:45 11/14/24 14:50 11/14/24 14:55 Temperature 100.2 F H 100.2 F H 97.3 F L Pulse Rate 76 68 67 Pulse Rate [Pulse Oximeter] Respiratory Rate 15 12 12 Blood Pressure 156/100 H 183/84 H 179/81 H Blood Pressure [Le ft Arm] Blood Pressure [Ri ght Arm] Pulse Oximetry 99 93 92 Oxygen Delivery Me thod Nasal Cannula Room Air Room Air Oxygen Flow Rate 5 11/14/24 15:00 11/14/24 15:15 11/14/24 15:30 Temperature 97.3 F L 97.8 F 97.7 F Pulse Rate 65 67 74 Pulse Rate [Pulse Oximeter] Respiratory Rate 12 16 16 Blood Pressure 176/73 H 171/70 H 157/74 H Blood Pressure [Le ft Arm] Blood Pressure [Ri ght Arm] Pulse Oximetry 93 93 92 Oxygen Delivery Me thod Room Air Room Air Nasal Cannula Oxygen Flow Rate 2 11/14/24 15:45 11/14/24 16:00 11/14/24 16:15 Temperature 98.1 F 97.6 F 98 F Pulse Rate 67 67 68 Pulse Rate [Pulse Oximeter] Respiratory Rate 16 16 16 Blood Pressure 152/63 H 145/60 H 147/60 H Blood Pressure [Le ft Arm] Blood Pressure [Ri ght Arm] Pulse Oximetry 94 93 92 Oxygen Delivery Me thod Nasal Cannula Nasal Cannula Nasal Cannula Oxygen Flow Rate 1 1 1 11/14/24 16:45 11/14/24 17:15 11/14/24 18:15 Temperature 98.1 F 97.6 F 98.7 F Pulse Rate 71 73 75 Pulse Rate [Pulse Oximeter] Respiratory Rate 16 18 18 Blood Pressure 151/65 H 161/66 H 169/67 H Blood Pressure [Le ft Arm] Blood Pressure [Ri ght Arm] Pulse Oximetry 94 96 91 Oxygen Delivery Me thod Nasal Cannula Room Air Room Air Oxygen Flow Rate 1 11/14/24 19:00 11/14/24 19:15 11/14/24 20:15 Temperature 98.8 F 98.8 F 99 F Pulse Rate 68 83 Pulse Rate [Pulse Oximeter] 68 Respiratory Rate 16 16 18 Blood Pressure 152/78 H 150/61 H Blood Pressure [Le ft Arm] 152/78 H Blood Pressure [Ri ght Arm] Pulse Oximetry 95 95 92 Oxygen Delivery Me thod Nasal Cannula Nasal Cannula Nasal Cannula Oxygen Flow Rate 1 1 1 11/14/24 21:15 11/14/24 23:00 11/14/24 23:00 Temperature 98.3 F 98.2 F Pulse Rate 80 Pulse Rate [Pulse Oximeter] 86 Respiratory Rate 18 18 16 Blood Pressure 158/61 H Blood Pressure [Le ft Arm] Blood Pressure [Ri ght Arm] 149/72 H Pulse Oximetry 90 94 Oxygen Delivery Me thod Nasal Cannula Nasal Cannula Oxygen Flow Rate 0.5 0.5 11/14/24 23:00 11/14/24 23:50 11/15/24 02:56 Temperature 98.5 F Pulse Rate Pulse Rate [Pulse Oximeter] 90 Respiratory Rate 16 16 Blood Pressure Blood Pressure [Le ft Arm] 124/66 Blood Pressure [Ri ght Arm] 143/70 H Pulse Oximetry 94 96 92 Oxygen Delivery Me thod Nasal Cannula Nasal Cannula Nasal Cannula Oxygen Flow Rate 0.5 0.5 0.5 11/15/24 07:00 11/15/24 07:00 11/15/24 11:00 Temperature 98.1 F 98.1 F Pulse Rate Pulse Rate [Pulse Oximeter] 85 71 Respiratory Rate 20 16 Blood Pressure Blood Pressure [Le ft Arm] 145/69 H 125/63 Blood Pressure [Ri ght Arm] Pulse Oximetry 94 94 94 Oxygen Delivery Me thod Room Air Room Air Nasal Cannula Oxygen Flow Rate 2 Labs Labs: Laboratory Results - last 24 hr 11/15/24 05:55 WBC 9.20 RBC 3.42 L Hgb 10.8 L Hct 30.8 L MCV 90 MCH 32 MCHC 35 RDW Coeff of Elan 12.7 Plt Count 102 L Neut % (Auto) 77.2 H Lymph % (Auto) 8.2 L [place] % (Auto) 11.1 H Eos % (Auto) 2.2 Baso % (Auto) 0.3 Neut # (Auto) 7.10 H Lymph # (Auto) 0.80 L [place] # (Auto) 1.00 H Eos # (Auto) 0.20 Baso # (Auto) 0.03 Abs Immat Gran (auto) 0.09 Imm/Tot Granulo (auto) 1.0 Sodium 133 L Potassium 4.0 Chloride 107 Carbon Dioxide 22 Anion Gap 4 L BUN 10 Creatinine 1.1 Estimated GFR 65 Glucose 244 H Calcium 7.1 L
--- NOTE | 2024-11-15 16:37 | PC.SOCIAL ---
Discharge planning: Pt has been accepted for admit to [facility] tomorrow 11/15/24, pending insurance prior authorization. Pt has 100% insurance coverage for days 1-20 and $214/day copay for days 21-100. Family is aware and agrees with this co-pay. Family has access to wheelchair van and will decide tomorrow about transporting pt privately or using their own van for transport. Social working awaiting prior auth information and final confirmation of acceptance from [facility]. acid conditioning worker to follow up as needed.
--- NOTE | 2024-11-15 18:01 | PC.NURSE ---
End of Shift Note: Patient has had a rough day. First half of the day we struggle with getting his pain under control. Appeared he may of been having some muscle spasms. Did end of giving him a dose of IV dilaudid and applied a lidocaine patch which did take his pain away but then made him very sleepy. Also been struggle with his appetite today as he says he does not feel like eating. Did not order any lunch and family did bring him in dinner but he has not touched it. Did make him an ensure shake with some ice cream in it just to get some protein in him today. PT also used the sera steady to get him up this afternoon as his feet were not moving the best. He is currently sitting up in the recliner and once he finishes the shake told him we will get him back into bed. Family has been at his bedside most of the day. Once he is back into bed will also need to look at the meplix on his bottom as this may need to be changed. If he does not lay down before the end of my shift will pass this on to the next shift to look at his bottom. Will continue to monitor until next shift arrives.
[2024-11-15] MEDS: ROSUVASTATIN CALCIUM 10 MG TABLET PO (20:46)
[2024-11-15] MEDS: TIZANIDINE HCL 4 MG TABLET PO (20:47)
[2024-11-16] VITALS (8 sets, daily range): BP systolic 110–161; BP diastolic 52–73; PULSE 63–93; RESP 18–25; TEMP 36.8–37.2; O2SAT 92–94
[2024-11-16] MEDS: ACETAMINOPHEN 500 MG TABLET 1000 MG PO ×4 (05:50→23:56)
[2024-11-16 06:38] LABS: Hematocrit* 28.7 % (37.0-53.0); Hemoglobin* 10.0 gm/dL (13.5-17.5); Immature Granulocytes Abs Auto 0.04 K/uL (0.00-0.30); Immature Granulocytes Pct Auto 0.5 %; Lymphocytes Absolute Auto 1.20 K/uL (0.90-2.90); Mean Corpuscular HGB Conc 35 gm/dL (32-36); Mean Corpuscular Hemoglobin 32 pg (26-34); Mean Corpuscular Volume 91 fL (80-100); RDW Coefficient of Variation % 12.9 % (11.5-15.5); Red Blood Count* 3.15 m/uL (4.30-5.90); White Blood Count* 8.25 K/uL (4.50-11.00)
--- NOTE | 2024-11-16 06:38 | PC.NURSE ---
End of shift report [id number]: VSS. Afebrile. Denies nausea. On 0.5 L O2 via NC when pt sleeping to keep O2 sats above 90% per MD orders. Rates pain from 2-8, prn pain meds offered and given with relief.?At the beginning of the shift pt was AxOx4, at around 2300 pt is noted to have intermittent confusion, easily redirectable. Propulsion Systems Engineer encouraged the pt to ambulate out of bed using the EZ stand to change his coccyx mepilex, pt refused. Mepilex was changed in bed, C/D/I. R hip dressing is C/D/I. Intermittent ice applied. Lora is intact and patent. Bed alarm on, call light within reach.?
[2024-11-16 06:41] LABS: Slide Review Reflex No
[2024-11-16 06:46] LABS: Chloride* 106 mmol/L (96-114); Sodium* 135 mmol/L (135-149)
[2024-11-16 06:47] LABS: Potassium* 4.0 mmol/L (3.6-5.1)
[2024-11-16 06:50] LABS: Anion Gap 4 mEq/L (7-15); Blood Urea Nitrogen* 15 mg/dL (7-30); Calcium* 7.6 mg/dL (8.4-10.6); Carbon Dioxide* 25 mmol/L (20-32); Creatinine* 1.1 mg/dL (0.5-1.5); Est. Creatinine Clearance* 51.34; Estimated Glomerular Filt Rate 65 ml/min; Glucose* 256 mg/dL (60-115)
[2024-11-16] MEDS: CLOPIDOGREL 75 MG TABLET PO (08:38)
[2024-11-16] MEDS: METFORMIN 1,000 MG TABLET 1000 MG PO ×2 (08:39→18:47)
[2024-11-16] MEDS: PROPRANOLOL 20 MG TABLET PO (08:39)
[2024-11-16] MEDS: SENNOSIDES 1 TAB TABLET 2 TAB PO ×2 (08:39→21:09)
[2024-11-16] MEDS: LOSARTAN POTASSIUM 50 MG TABLET PO (08:40)
[2024-11-16] MEDS: RIVAROXABAN 10 MG TABLET PO (08:40)
[2024-11-16] MEDS: SITAGLIPTIN PHOSPHATE 50 MG TABLET 100 MG PO (08:41)
[2024-11-16] MEDS: INSULIN ASPART 100 UNIT/ML SUBCUT ×4 (08:41→21:09)
[2024-11-16] MEDS: SODIUM CHLORIDE 0.9 % (FLUSH) 10 ML SYRINGE 5 ML IVF ×2 (08:48→21:18)
--- NOTE | 2024-11-16 10:47 | P.ORPN_ITS ---
Subjective Subjective Date Seen: 11/16/24 Principal diagnosis: POD 2 right bipolar hemiarthroplasty, uncemented - anterior approach Interval history: Patient reports doing okay. Feels a little better compared to yesterday. States he is moving a little better with walker and assistance. A little lightheaded/dizzy upon 1st getting up. No acute events over night. Pain managed with scheduled and PRN medications, ice. DVT prophylaxis: Rivaroxaban and Plavix, SCDs, walking. Denies fevers, chills, aches, N/V, CP, SOB/MONCADA. Passing flatus. Ortho Exam Narrative Exam Narrative: -Patient appears comfortable in recliner; no apparent acute distress. Family present. -Alert and oriented times 3 -Operative hip, thigh, lower leg moderately swollen; soft tissues supple; no obvious erythema. Ecchymosis minimal. Warmth appropriate -Surgical dressing clean, dry, intact; no obvious drainage, no erythematous streaking peripheral to the bandage -Bilateral calves soft and supple; no edema, tenderness, erythema, discoloration, warmth, or palpable cords. Calf is swollen compared to left. -2+ DP/PT pulses, intact dermatomes and myotomes distally (5/5 strength). No numbness about the lateral femoral cutaneous nerve distribution. Const Vital Signs, click to edit/add: Vital Signs - 24 hr 11/15/24 11:00 11/15/24 15:00 11/15/24 15:00 Temperature 98.1 F 98.1 F Pulse Rate [Bilateral Dorsalis Pedis] Pulse Rate [Pulse Oximeter] 71 65 Respiratory Rate 16 18 18 Blood Pressure [Left Arm] 125/63 132/60 Blood Pressure [Right Arm] Pulse Oximetry 94 94 94 Oxygen Delivery Method Nasal Cannula Nasal Cannula Nasal Cannula Oxygen Flow Rate 2 1 1 11/15/24 19:00 11/15/24 19:47 11/15/24 23:00 Temperature 98.2 F Pulse Rate [Bilateral Dorsalis Pedis] Pulse Rate [Pulse Oximeter] 70 Respiratory Rate 16 16 16 Blood Pressure [Left Arm] Blood Pressure [Right Arm] 135/68 Pulse Oximetry 92 90 Oxygen Delivery Method Room Air Nasal Cannula Oxygen Flow Rate 0.5 11/15/24 23:00 11/16/24 03:00 11/16/24 07:00 Temperature 98.2 F 98.2 F Pulse Rate [Bilateral Dorsalis Pedis] 65 Pulse Rate [Pulse Oximeter] 63 93 Respiratory Rate 16 18 Blood Pressure [Left Arm] 161/73 H Blood Pressure [Right Arm] 115/53 L 110/52 L Pulse Oximetry 90 93 Oxygen Delivery Method Nasal Cannula Nasal Cannula Oxygen Flow Rate 0.5 0.5 11/16/24 08:00 Temperature Pulse Rate [Bilateral Dorsalis Pedis] Pulse Rate [Pulse Oximeter] Respiratory Rate Blood Pressure [Left Arm] Blood Pressure [Right Arm] Pulse Oximetry 93 Oxygen Delivery Method Room Air Oxygen Flow Rate Assessment and Plan Assessment and plan (1) Femoral neck fracture: Problem details: - s/p mechanical fall 11/13/2024 - Right hip bipolar hemiarthroplasty with Dr. Mueller on 11/14/24 Status: Acute (2) Diabetes mellitus type 2, controlled: Problem details: - on Metformin, Sitagliptin, and Glipizide as outpatient (held on admission, restarted 11/15), SSI as well - Hemoglobin A1c on September 05 was 7.5 Status: Acute (3) History of coronary artery stent placement: Problem details: - total of 5 coronary stents placed, most recently 05/17 in the RCA with EF 60% at that time; then had restenosis of a stent in his diagonal which was not amenable to intervention - Handkerchief Sample Clerk recommends clopidogrel and aspirin for 1 year followed by Clopidogrel indefinitely Status: Acute (4) Atonic bladder: Problem details: - self catheterization at home, vallecillo placed 11/13 Status: Acute (5) Coronary artery disease: Problem details: - recurrent interventions with coronary stents (2006, 2021, 2024) Status: Acute (6) Stage 3 chronic kidney disease: Problem details: - Creatinine on 09/05/24 was 1.3; admission creatinine 1.0 Status: Acute (7) Anemia: Problem details: - chronic, normocytic, mild - admission Hgb 12.5 --> postoperative Hgb 10.8 Status: Acute (8) Peripheral neuropathy: Status: Acute (9) Impairment of balance: Problem details: - balance difficulties due to peripheral neuropathy prior to hip fracture; may need SNF prior to d/c home Status: Acute (10) Essential tremor: Problem details: - new diagnosis on 11/13/2024, Propanolol initiated 11/15 Status: Acute Plan - continue PT/OT - Social work consult for discharge planning - working on insurance approval for SNF, [facility] - Prescribed analgesics as needed - DVT prophylaxis: Rivaroxaban and Plavix, walking, and SCDs - Anticipation is for discharge to SNF, possibly 11/16/2024 primary pending insurance approval.
--- NOTE | 2024-11-16 11:13 | PC.NURSE ---
During time of PT signwriter was able to view and change Mepilex to coccyx/buttock area. Square mepilex in place with noted superficial skin abrasion below bandage on left side. Removed mepilex, multiple small superficial skin abrasions on both sides of buttock below coccyx on outer skin of folds, Heart shaped mepilex applied upside down to cover all skin abrasions and along with PT changed to a ROHO for chair height and off loading to further prevent tissue breakdown. Educated pt and present family of importance of shift weight min. Q1H.
--- NOTE | 2024-11-16 11:31 | PM.IMPN1 ---
Assessment and Plan Assessment and plan (1) Femoral neck fracture: Problem comment: - s/p mechanical fall 11/13/2024 - Right hip bipolar hemiarthroplasty with Dr. Mueller on 11/14/24 Status: Acute (2) Diabetes mellitus type 2, controlled: Problem comment: - on Metformin, Sitagliptin, and Glipizide as outpatient (held on admission, restarted 11/15), SSI as well - Hemoglobin A1c on September 05 was 7.5 Status: Acute (3) History of coronary artery stent placement: Problem comment: - total of 5 coronary stents placed, most recently 05/17 in the RCA with EF 60% at that time; then had restenosis of a stent in his diagonal which was not amenable to intervention - Electrician Elevator Maintenance recommends clopidogrel and aspirin for 1 year (until April 2025), followed by Clopidogrel indefinitely Status: Acute (4) Atonic bladder: Problem comment: - self catheterization at home, vallecillo placed 11/13 Status: Acute (5) Coronary artery disease: Problem comment: - recurrent interventions with coronary stents (2006, 2013, 2016 angioplasty, 2019, 2021, 2024) Status: Acute (6) Stage 3 chronic kidney disease: Problem comment: - Creatinine on 09/05/24 was 1.3; admission creatinine 1.0 and has remained between 1.0 and 1.1 since admission Status: Acute (7) Anemia: Problem comment: - chronic, normocytic, mild - admission Hgb 12.5 --> postoperative Hgb 10.8 --> 10.0 - continue to follow, on Xarelto x5 days postoperatively, then back to DAPT per above Status: Acute (8) Peripheral neuropathy: Status: Acute (9) Impairment of balance: Problem comment: - balance difficulties due to peripheral neuropathy prior to hip fracture; may need SNF prior to d/c home Status: Acute (10) Essential tremor: Problem comment: - new diagnosis on 11/13/2024, Propanolol initiated 11/15 Status: Acute Plan - per above (awaiting placement) - family updated bedside, questions answered Subjective Date Seen: 11/16/24 Interval history: Rosales was admitted to the hospital on 11/13 after mechanical fall at home; ER imaging revealed an impacted fracture of the right femoral neck with displacement. He is POD #1 from R hip bipolar hemiarthroplasty with Dr. Mueller of Orthopedic surgery. No operative or anesthetic complications during procedure. History of CAD with multiple stents placed, most recently spring. He is on DAPT with aspirin and Plavix until March 2025, followed by Clopidogrel indefinitely per Cardiology. Last TTE performed by Cardiology in March 2024, EF 60% at that time. Has been placed on 5 days of Xarelto postoperatively, will continue Plavix with this but holding ASA until Xarelto course is completed. Other comorbidities include noninsulin dependent DM2, atonic bladder requiring QID straight catheterizations, stage 3 CKD, peripheral neuropathy, chronic mild normocytic anemia. On SSI with regular accuchecks, Vallecillo placed in the ER on 11/13. This morning, Rosales notes that he's not eating well. No nausea or abdominal pain, just poor appetite. Hasn't had a BM since admission. Pain better controlled on current regimen. Awaiting SNF placement. Exam Narrative: Exam Narrative: GEN: Alert and oriented, sitting comfortably in bedside chair HEENT: EOMIs bilaterally, no scleral icterus CV: RRR, No concerning murmurs R: LCTA bilaterally, no wheezing Ext: Nonpitting edema right lower extremity, wearing Brian hose. Negative Malathi's sign. No bruising or drainage noted around dressing on R hip Skin: No concerning skin lesions on exposed skin Neuro: Nonfocal, tremor not noted this morning Psych: Appropriate Const: Vital Signs, click to edit/add: Vital Signs - 24 hr 11/15/24 15:00 11/15/24 15:00 11/15/24 19:00 Temperature 98.1 F 98.2 F Pulse Rate [Bilate ral Dorsalis Pedis ] Pulse Rate [Pulse Oximeter] 65 70 Respiratory Rate 18 18 16 Blood Pressure [Le ft Arm] 132/60 Blood Pressure [Ri ght Arm] 135/68 Pulse Oximetry 94 94 92 Oxygen Delivery Me thod Nasal Cannula Nasal Cannula Room Air Oxygen Flow Rate 1 1 11/15/24 19:47 11/15/24 23:00 11/15/24 23:00 Temperature 98.2 F Pulse Rate [Bilate ral Dorsalis Pedis ] Pulse Rate [Pulse Oximeter] Respiratory Rate 16 16 16 Blood Pressure [Le ft Arm] Blood Pressure [Ri ght Arm] 115/53 L Pulse Oximetry 90 90 Oxygen Delivery Me thod Nasal Cannula Nasal Cannula Oxygen Flow Rate 0.5 0.5 11/16/24 03:00 11/16/24 07:00 11/16/24 08:00 Temperature 98.2 F Pulse Rate [Bilate ral Dorsalis Pedis ] 65 Pulse Rate [Pulse Oximeter] 63 93 Respiratory Rate 18 Blood Pressure [Le ft Arm] 161/73 H Blood Pressure [Ri ght Arm] 110/52 L Pulse Oximetry 93 93 Oxygen Delivery Me thod Nasal Cannula Room Air Oxygen Flow Rate 0.5 11/16/24 11:02 Temperature 98.2 F Pulse Rate [Bilate ral Dorsalis Pedis ] Pulse Rate [Pulse Oximeter] Respiratory Rate Blood Pressure [Le ft Arm] Blood Pressure [Ri ght Arm] Pulse Oximetry Oxygen Delivery Me thod Oxygen Flow Rate Labs Labs: Laboratory Results - last 24 hr 11/16/24 06:16 WBC 8.25 RBC 3.15 L Hgb 10.0 L Hct 28.7 L MCV 91 MCH 32 MCHC 35 RDW Coeff of Elan 12.9 Plt Count 95 L Neut % (Auto) 68.6 Lymph % (Auto) 14.5 L Bland % (Auto) 12.7 H Eos % (Auto) 3.3 Baso % (Auto) 0.4 Neut # (Auto) 5.66 Lymph # (Auto) 1.20 Bland # (Auto) 1.00 H Eos # (Auto) 0.27 Baso # (Auto) 0.03 Abs Immat Gran (auto) 0.04 Imm/Tot Granulo (auto) 0.5 Sodium 135 Potassium 4.0 Chloride 106 Carbon Dioxide 25 Anion Gap 4 L BUN 15 Creatinine 1.1 Estimated Creat Clear 51.34 Estimated GFR 65 Glucose 256 H Calcium 7.6 L
[2024-11-16] MEDS: LIDOCAINE 5% PATCH 1 PATCH TRANSDERMA (11:43)
--- NOTE | 2024-11-16 13:56 | PC.SOCIAL ---
Discharge planning: VERNON completed PAS and sent to Yolande at [facility]. PAS - [id number]. VERNON informed patient, patient's , and daughter that we are waiting for [facility] to obtain the prior authorization to be able to discharge patient. Patient's had questions and concerns about the financial questionnaire that [facility] has families complete. VERNON informed that every person being admitted there is asked to complete this and VERNON is not aware of what the ramifications are for not completing all of their questions. VERNON apologized that this was concerning to them. VERNON inquired about transportation and family states they would like to go forward with [facility]. VERNON completed the wheelchair transportation form and it is in patient's chart. electrician constructor supervisor states that he would be PCS appropriate and insurance should cover. VERNON informed family of this. VERNON received hourly updates from Yolande that the PAS was not received. Yolande informed SW that she called [facility] and they state they will [facility]. VERNON informed family that discharge won't be today, but should be tomorrow. Family had no questions or concerns about this. VERNON to continue to assist with discharge planning.
--- NOTE | 2024-11-16 17:32 | PC.NURSE ---
Pt is A/O 3 with pleasant demeanor, Lora cath in place, patent, & draining. Per pt no BM since 11/13/24, See MAR for bowel movement medication. Pt had poor appetite throughout shift, encouraged high protein meals and snacks. Sliding scale insulin administered per MAR. Active ice applied to incision on right hip.
[2024-11-16] MEDS: ROSUVASTATIN CALCIUM 10 MG TABLET PO (21:09)
[2024-11-17] VITALS (8 sets, daily range): BP systolic 146–190; BP diastolic 59–86; PULSE 65–80; RESP 17–20; TEMP 36.6–37.1; O2SAT 92–98
[2024-11-17] MEDS: ACETAMINOPHEN 500 MG TABLET 1000 MG PO ×3 (05:56→18:03)
--- NOTE | 2024-11-17 06:12 | PC.NURSE ---
End of shift report [id number]: VSS. Afebrile. On RA. Orientated to person and place with intermittent confusion. Pt ambulated 2A, GB, W to the chair and bedside commode. Pt had a BM overnight. Dressing is C/D/I on right hip. Coccyx mepilex is C/D/I. Lora is intact and patent. Bed alarm on, call light within reach.
[2024-11-17] MEDS: METFORMIN 1,000 MG TABLET 1000 MG PO ×2 (08:12→18:03)
[2024-11-17] MEDS: INSULIN ASPART 100 UNIT/ML SUBCUT ×4 (08:13→20:55)
[2024-11-17] MEDS: SENNOSIDES 1 TAB TABLET 2 TAB PO ×2 (08:53→20:47)
[2024-11-17] MEDS: SODIUM CHLORIDE 0.9 % (FLUSH) 10 ML SYRINGE 5 ML IVF ×2 (08:54→20:48)
[2024-11-17] MEDS: PROPRANOLOL 20 MG TABLET PO (08:54)
[2024-11-17] MEDS: ISOSORBIDE MONONITRATE ER 30 MG TAB PO (08:54)
[2024-11-17] MEDS: LOSARTAN POTASSIUM 50 MG TABLET PO (08:54)
[2024-11-17] MEDS: RIVAROXABAN 10 MG TABLET PO (08:54)
[2024-11-17] MEDS: SITAGLIPTIN PHOSPHATE 50 MG TABLET 100 MG PO (08:54)
[2024-11-17] MEDS: LIDOCAINE 5% PATCH 1 PATCH TRANSDERMA (11:04)
--- NOTE | 2024-11-17 11:26 | PM.ORPN ---
Subjective Subjective Date Seen: 11/17/24 Principal diagnosis: POD 3 right bipolar hemiarthroplasty, uncemented - anterior approach Interval history: Patient reports doing better today, with better pain management. Still having no appetite, but is trying to eat. No nausea. No acute events over night. Pain managed with scheduled and PRN medications, ice. DVT prophylaxis: Rivaroxaban, SCDs, walking. Plavix is being held at this time. Denies fevers, chills, aches, N/V, CP, SOB/MONCADA, or lightheadedness. Reports that he is moving a little better with his walker. Ortho Exam Narrative Exam Narrative: -Patient appears comfortable in recliner; no apparent acute distress. Eating eggs for breakfast. -Alert and oriented times 3 -Operative hip, thigh, calf swollen; soft tissues supple; no obvious erythema. Ecchymosis minimal. Warmth appropriate -Surgical dressing clean, dry, intact; no obvious drainage, no erythematous streaking peripheral to the bandage -Bilateral calves soft and supple; no significant swelling, edema, tenderness, erythema, discoloration, warmth, or palpable cords -2+ DP/PT pulses, intact dermatomes and myotomes distally (5/5 strength). No numbness about the lateral femoral cutaneous nerve distribution. Const Vital Signs, click to edit/add: Vital Signs - 24 hr 11/16/24 15:00 11/16/24 15:00 11/16/24 15:00 Temperature 98.9 F Pulse Rate [Pulse Oximeter] 75 75 Respiratory Rate 25 H Blood Pressure [Left Arm] 147/67 H Blood Pressure [Right Arm] Pulse Oximetry 92 92 Oxygen Delivery Method Room Air Room Air 11/16/24 19:00 11/16/24 23:00 11/16/24 23:00 Temperature 98.7 F 99 F Pulse Rate [Pulse Oximeter] 70 68 68 Respiratory Rate 20 18 18 Blood Pressure [Left Arm] 156/69 H Blood Pressure [Right Arm] 124/66 Pulse Oximetry 94 94 Oxygen Delivery Method Room Air Room Air 11/16/24 23:00 11/17/24 03:00 11/17/24 07:58 Temperature 98.4 F 98.8 F Pulse Rate [Pulse Oximeter] 74 72 Respiratory Rate 18 18 18 Blood Pressure [Left Arm] 182/74 H Blood Pressure [Right Arm] 153/65 H Pulse Oximetry 94 93 97 Oxygen Delivery Method Room Air Room Air Room Air 11/17/24 08:02 11/17/24 11:15 Temperature 97.8 F Pulse Rate [Pulse Oximeter] 65 Respiratory Rate 18 18 Blood Pressure [Left Arm] 180/72 H Blood Pressure [Right Arm] Pulse Oximetry 97 98 Oxygen Delivery Method Room Air Room Air Assessment and Plan Assessment and plan (1) Femoral neck fracture: Problem details: - s/p mechanical fall 11/13/2024 - Right hip bipolar hemiarthroplasty with Dr. Mueller on 11/14/24 Status: Acute (2) Diabetes mellitus type 2, controlled: Problem details: - on Metformin, Sitagliptin, and Glipizide as outpatient (held on admission, restarted 11/15), SSI as well - Hemoglobin A1c on September 05 was 7.5 Status: Acute (3) History of coronary artery stent placement: Problem details: - total of 5 coronary stents placed, most recently 05/17 in the RCA with EF 60% at that time; then had restenosis of a stent in his diagonal which was not amenable to intervention - Desktop Support Technician recommends clopidogrel and aspirin for 1 year (until April 2025), followed by Clopidogrel indefinitely Status: Acute (4) Atonic bladder: Problem details: - self catheterization at home, vallecillo placed 11/13 Status: Acute (5) Coronary artery disease: Problem details: - recurrent interventions with coronary stents (2006, 2013, 2016 angioplasty, 2019, 2021, 2024) Status: Acute (6) Stage 3 chronic kidney disease: Problem details: - Creatinine on 09/05/24 was 1.3; admission creatinine 1.0 and has remained between 1.0 and 1.1 since admission Status: Acute (7) Anemia: Problem details: - chronic, normocytic, mild - admission Hgb 12.5 --> postoperative Hgb 10.8 --> 10.0 - continue to follow, on Xarelto x5 days postoperatively, then back to DAPT per above Status: Acute (8) Peripheral neuropathy: Status: Acute (9) Impairment of balance: Problem details: - balance difficulties due to peripheral neuropathy prior to hip fracture; may need SNF prior to d/c home Status: Acute (10) Essential tremor: Problem details: - new diagnosis on 11/13/2024, Propanolol initiated 11/15 Status: Acute Plan - Complete 23 hour perioperative antibiotics. - PT/OT consult for education and assistance. - Social work consult for discharge planning - Prescribed analgesics as needed - DVT prophylaxis: Rivaroxaban, walking, and SCDs. It appears that he will return to taking his anti-platelet medications 11/20/2024. - Anticipation is for discharge to SNF possibly today at [facility] if the patient remains medically stable, pain is controlled, and they are safe with mobilization. At this point, pending insurance approval for SNF is the only reason patient still remains in hospital, as he has been accepted to [facility].
--- NOTE | 2024-11-17 12:49 | P.IMPN_ITS ---
Assessment and Plan Assessment and plan (1) Femoral neck fracture: Problem comment: - s/p mechanical fall 11/13/2024 - Right hip bipolar hemiarthroplasty with Dr. Mueller on 11/14/24 Status: Acute (2) Diabetes mellitus type 2, controlled: Problem comment: - on Metformin, Sitagliptin, and Glipizide as outpatient (held on admission, restarted 11/15), SSI as well - Hemoglobin A1c on September 05 was 7.5 Status: Acute (3) History of coronary artery stent placement: Problem comment: - total of 5 coronary stents placed, most recently 05/17 in the RCA with EF 60% at that time; then had restenosis of a stent in his diagonal which was not amenable to intervention - Experimental Display Builder recommends clopidogrel and aspirin for 1 year (until April 2025), followed by Clopidogrel indefinitely Status: Acute (4) Atonic bladder: Problem comment: - self catheterization at home, vallecillo placed 11/13 Status: Acute (5) Coronary artery disease: Problem comment: - recurrent interventions with coronary stents (2006, 2013, 2016 angioplasty, 2019, 2021, 2024) Status: Acute (6) Stage 3 chronic kidney disease: Problem comment: - Creatinine on 09/05/24 was 1.3; admission creatinine 1.0 and has remained between 1.0 and 1.1 since admission Status: Acute (7) Anemia: Problem comment: - chronic, normocytic, mild - admission Hgb 12.5 --> postoperative Hgb 10.8 --> 10.0 - continue to follow, on Xarelto x5 days postoperatively, then back to DAPT per above Status: Acute (8) Peripheral neuropathy: Status: Acute (9) Impairment of balance: Problem comment: - balance difficulties due to peripheral neuropathy prior to hip fracture; may need SNF prior to d/c home Status: Acute (10) Essential tremor: Problem comment: - new diagnosis on 11/13/2024, Propanolol initiated 11/15 Status: Acute Plan - per above - await placement Subjective Date Seen: 11/17/24 Interval history: Rosales was admitted to the hospital on 11/13 after a mechanical fall at home; ultimately diagnosed with a R femoral neck fracture. s/p R bipolar hip hemiarthroplasty with Dr. Mueller of Orthopedic surgery (DOS: 11/14/24) No operative or anesthetic complications during procedure. Comorbidities include Noninsulin dependent DM2, atonic bladder requiring QID straight catheterizations, stage 3 CKD, peripheral neuropathy, chronic mild normocytic anemia, and CAD. He has had multiple stents placed, most recently spring. He is on DAPT with aspirin and Plavix until March 2025, followed by Clopidogrel indefinitely per Cardiology. Last TTE performed by Cardiology in March 2024, EF 60% at that time. Has been placed on 5 days of Xarelto postoperatively, will restart Plavix and Aspirin on 11/20 Vallecillo cathter placed in the ER on 11/13. Patient is feeling better each day; has adequate pain control and had a BM yesterday. Awaiting insurance preauthorization for SNF placement. Exam Narrative: Exam Narrative: Patient is sitting comfortably in bedside chair, dressed No concerning bruising, mild edema of RLE (nonpitting, negative Malathi's sign) No resting tremor noted Const: Vital Signs, click to edit/add: Vital Signs - 24 hr 11/16/24 15:00 11/16/24 15:00 11/16/24 15:00 Temperature 98.9 F Pulse Rate [Pulse Oximeter] 75 75 Respiratory Rate 25 H Blood Pressure [Le ft Arm] 147/67 H Blood Pressure [Ri ght Arm] Pulse Oximetry 92 92 Oxygen Delivery Me thod Room Air Room Air 11/16/24 19:00 11/16/24 23:00 11/16/24 23:00 Temperature 98.7 F 99 F Pulse Rate [Pulse Oximeter] 70 68 68 Respiratory Rate 20 18 18 Blood Pressure [Le ft Arm] 156/69 H Blood Pressure [Ri ght Arm] 124/66 Pulse Oximetry 94 94 Oxygen Delivery Me thod Room Air Room Air 11/16/24 23:00 11/17/24 03:00 11/17/24 07:58 Temperature 98.4 F 98.8 F Pulse Rate [Pulse Oximeter] 74 72 Respiratory Rate 18 18 18 Blood Pressure [Le ft Arm] 182/74 H Blood Pressure [Ri ght Arm] 153/65 H Pulse Oximetry 94 93 97 Oxygen Delivery Me thod Room Air Room Air Room Air 11/17/24 08:02 11/17/24 11:15 Temperature 97.8 F Pulse Rate [Pulse Oximeter] 65 Respiratory Rate 18 18 Blood Pressure [Le ft Arm] 180/72 H Blood Pressure [Ri ght Arm] Pulse Oximetry 97 98 Oxygen Delivery Me thod Room Air Room Air
--- NOTE | 2024-11-17 16:51 | PC.SOCIAL ---
Discharge planning:turntable worker was in communication with admission coordinator at [facility], from 8am-3:00p, while facility was still waiting for a decision on prior authorization of a short term rehab stay from pt's insurance. At 3:00 today, insurance provided prior authorization to [facility]. Yolande confirmed they can accept pt tomorrow as it is past their cut-off time for admission today. Arranged for admission at 11:00 tomorrow. Met with family and pt who are aware and agree with this plan. Family does not feel comfortable transporting pt in their own vehicle and are requesting transport in the non-emergency ambulance. Family is aware of the estimate of private pay cost of $120 and agrees to pay this. RN to schedule EMS transport at 11:00 and social media marketer to follow up tomorrow as needed for discharge to [facility].
--- NOTE | 2024-11-17 18:34 | PC.NURSE ---
End of shift [id number]: Orientated to person and place with confusion intermittently. Cooperative and pleasant with cares. A1 GB W. Dressing to R hip and Coccyx remain CDI. Lidocaine placed to the R outer hip that remains CDI. Pain managed well with scheduled Tylenol. Lora is intact and patent. Family at bedside during the day. Chair alarm in place, call light within reach. Discharging tomorrow via non-emergent EMS [facility].
[2024-11-17] MEDS: ROSUVASTATIN CALCIUM 10 MG TABLET PO (20:48)
[2024-11-18 03:00] VITALS: BP 191/86; PULSE 77; RESP 17; TEMP 36.6; O2SAT 94
[2024-11-18] MEDS: ONDANSETRON 2 MG/ML inj 4 MG IVP ×2 (03:03→09:17)
[2024-11-18] MEDS: ACETAMINOPHEN 500 MG TABLET 1000 MG PO ×2 (06:17→10:47)
--- NOTE | 2024-11-18 06:48 | PC.NURSE ---
Pt is pleasant and cooperative. Denies pain, and refused scheduled Tylenol once. Had emesis at 0300, Zofran given. Pt reports feeling better. pt has vallecillo and is 1 assist with walker.
[2024-11-18 07:00] VITALS: PULSE 80; RESP 16; O2SAT 96
--- NOTE | 2024-11-18 07:39 | P.DS_ITS ---
DS: Providers Provider Date Seen: 11/18/24 Date of admission: 11/13/24 21:31 Primary care physician: Kevin Nelson MD Admitting Clinician: Pratik Brower MD Consults: 11/13/24 21:31 Consult to Occupational Therapy [CONS] Routine Comment: Reason(s) for OT Consult:: Evaluate and Treat Any Restrictions?:: No Restrictions Consult to Physical Therapy [CONS] Routine Comment: Reason(s) for PT Consult:: Evaluate and Treat Any Restrictions?:: No Restrictions Consult to Physician [CONS] Routine Comment: Consulting Provider: Michael Mueller Has provider been notified: Yes Consult to Steel Shot Header Operator [CONS] Routine Comment: Reason for Consult:: Discharge Planning Needs Attending Physician on discharge: Pratik Brower MD DS: Diagnosis Discharge Diagnosis (1) Femoral neck fracture: Status: Acute Problem details: - s/p mechanical fall 11/13/2024 - Right hip bipolar hemiarthroplasty with Dr. Mueller on 11/14/24 (2) Diabetes mellitus type 2, controlled: Status: Acute Problem details: - on Metformin, Sitagliptin, and Glipizide as outpatient (held on admission, restarted 11/15), SSI as well - Hemoglobin A1c on September 05 was 7.5 (3) History of coronary artery stent placement: Status: Acute Problem details: - total of 5 coronary stents placed, most recently 05/17 in the RCA with EF 60% at that time; then had restenosis of a stent in his diagonal which was not amenable to intervention - Industrial Sociologist recommends clopidogrel and aspirin for 1 year (until April 2025), followed by Clopidogrel indefinitely (4) Atonic bladder: Status: Acute Problem details: - self catheterization at home QID, vallecillo placed 11/13 - would like to leave vallecillo in upon discharge 11/18 until improved function, will replace or remove by 12/12/24 (5) Coronary artery disease: Status: Acute Problem details: - recurrent interventions with coronary stents (2006, 2013, 2016 angioplasty, 2019, 2021, 2024) - held Plavix and ASA for short course while on Xarelto, restarting 11/20 (6) Stage 3 chronic kidney disease: Status: Acute Problem details: - Creatinine on 09/05/24 was 1.3; admission creatinine 1.0 and has remained between 1.0 and 1.1 since admission (7) Anemia: Status: Acute Problem details: - chronic, normocytic, mild - admission Hgb 12.5 --> postoperative Hgb 10.8 --> 10.0 - continue to follow, on Xarelto x5 days postoperatively, then back to DAPT per above (8) Peripheral neuropathy: Status: Acute (9) Impairment of balance: Status: Acute Problem details: - balance difficulties due to peripheral neuropathy prior to hip fracture; may need SNF prior to d/c home (10) Essential tremor: Status: Acute Problem details: - new diagnosis on 11/13/2024, Propanolol initiated 11/15 DS: Summary Hospital Course Hospital Course: Rosales was admitted to the hospital on 11/13 after a mechanical fall at home; ultimately diagnosed with a R femoral neck fracture. s/p R bipolar hip hemiarthroplasty with Dr. Mueller of Orthopedic surgery (DOS: 11/14/24) No operative or anesthetic complications during procedure. Comorbidities include Noninsulin dependent DM2, atonic bladder requiring QID straight catheterizations, stage 3 CKD, peripheral neuropathy, chronic mild normocytic anemia, and CAD. He has had multiple stents placed, most recently spring. He is on DAPT with aspirin and Plavix until March 2025, followed by Clopidogrel indefinitely per Cardiology. Last TTE performed by Cardiology in March 2024, EF 60% at that time. Has been placed on 5 days of Xarelto postoperatively, will restart Plavix and Aspirin on 11/20. Hgb baseline 12.8, stable between 10-11 postoperatively without evidence of acute bleeding. Vallecillo catheter placed in the ER on 11/13. We will leave this in upon discharge until patient ambulating better and able to self-catheterize QID per previous. Patient is feeling better each day; has adequate pain control on scheduled APAP, Lidocaine patch, prn Oxycodone; has had return of bowel function. Seen by therapies and SNF recommended; accepted by [facility] and discharged there on 11/18/24. Status at Discharge Functional status at discharge: uses cane/walker Overall status at discharge: patient is progressing back to baseline Time Spent with Patient Time attestation: Total time spent providing and/or coordinating discharge services: Time spent: Greater than 30 minutes Specific discharge activities: Med rec, multidisciplinary team discussion Exam Narrative: Exam Narrative: Nontoxic, sitting in bedside chair comfortably Const: Vital Signs, click to edit/add: Vital Signs - 24 hr 11/17/24 07:58 11/17/24 08:02 11/17/24 11:15 Temperature 98.8 F 97.8 F Pulse Rate [Pulse Oximeter] 72 65 Respiratory Rate 18 18 18 Blood Pressure [Le ft Arm] 182/74 H 180/72 H Blood Pressure [Ri ght Arm] Pulse Oximetry 97 97 98 Oxygen Delivery Me thod Room Air Room Air Room Air 11/17/24 15:53 11/17/24 15:53 11/17/24 19:28 Temperature 98 F 98.2 F Pulse Rate [Pulse Oximeter] 71 73 Respiratory Rate 18 18 20 Blood Pressure [Le ft Arm] 161/77 H Blood Pressure [Ri ght Arm] 146/59 H Pulse Oximetry 92 92 94 Oxygen Delivery Me thod Room Air Room Air Room Air 11/17/24 23:00 11/17/24 23:45 11/18/24 03:00 Temperature 98.3 F 97.8 F Pulse Rate [Pulse Oximeter] 80 77 Respiratory Rate 17 17 Blood Pressure [Le ft Arm] 191/86 H Blood Pressure [Ri ght Arm] 190/86 H Pulse Oximetry 94 94 94 Oxygen Delivery Me thod Room Air Room Air Room Air Discharge Plan Discharge Disposition: [facility] Date of Admission: 11/13/24 21:31 Attending Provider on Discharge: Gladis Stevens Consulting Providers: Michael Mueller Primary Care Provider: Kevin Nelson Condition: Stable Anticipated Discharge Date/Time: 11/18/24 11:00 Discharge Medications: New aspirin 81 mg tablet 81 mg PO DAILY Qty: 30 2RF Rx Instructions: restart ASPIRIN and Plavix on 11/20/24 sennosides-docusate sodium [Senna-S] 8.6-50 mg tablet 1 - 4 tab-cap PO BID PRN (Reason: constipation) Qty: 60 0RF Rx Instructions: Hold medication if experiencing loose stools. oxycodone 5 mg tablet 2.5 - 5 mg PO Q4-6H MDD 6 PRN (Reason: pain) Qty: 42 0RF Rx Instructions: Take as needed for postop pain: 2.5mg mild pain, 5mg moderate-severe pain; wean as tolerated. rivaroxaban 10 mg tablet 10 mg PO DAILY Qty: 2 0RF Rx Instructions: Medication for deep vein clot prevention post surgery. Complete this medication before starting Aspirin. acetaminophen 500 mg Tablet 1,000 mg PO Q8H Qty: 30 0RF lidocaine 5 % Adhesive Patch,Medicated 1 patch transdermal Q24H Qty: 30 0RF Rx Instructions: R hip, do not place over incision docusate sodium 100 mg Capsule 100 mg PO BID PRN (Reason: Constipation) Qty: 60 0RF propranolol 20 mg Tablet 20 mg PO DAILY Qty: 30 0RF Continued metformin 1,000 mg tablet 1,000 mg PO BID ranolazine 500 mg tablet extended release 12 hr 500 mg PO Q12H Januvia 100 mg tablet 100 mg PO DAILY glipizide 5 mg tablet 5 mg PO DAILY isosorbide mononitrate 30 mg tablet extended release 24 hr 30 mg PO DAILY losartan 50 mg tablet 50 mg PO DAILY nitroglycerin 0.4 mg tablet, sublingual 0.4 mg sublingual Q5M PRN rosuvastatin 20 mg tablet 10 mg PO HS Patient Comments: TAKE 1/2 TABLET BY MOUTH EVERY EVENING Held clopidogrel 75 mg tablet 75 mg PO DAILY Hold Instructions: Resume on 11/20/24. restart ASA and Plavix on Thursday, 11/20 Patient Comments: TAKE ONE TABLET DAILY Discharge Orders: Discharge Order (Routine); Ordered 11/18/24 Ordered By: Gladis Stevens Additional Instructions: Leave Vallecillo in until you are ambulating better on your own at [facility]. Vallecillo was placed on 11/13 and will need to be removed or replaced on 12/12/24. NEW medication: Propranolol for tremor (if you're not noting much improvement, this can be discontinued anytime). You take Xarelto every day for blood clot prevention; your last dose will be 11/19 and you RESTART Plavix and Aspirin on 11/20. Activity Level: Activity as Tolerated, Weight Bearing as Tolerated, Use Cane and Use Walker Activity Detail: Wound: ? Remove surgical dressing after 1 week. Remove dressing sooner if integrity is in question. ? No immersing wound in water; showering okay; light scrub with your hand and body soap, rinse, dab dry ? Sutures are under the skin, will dissolve; do not scrub the wound or apply ointments/lotions ? Call our office with any redness that streaks, excessive drainage from the wound, or wound gapping. Ice/Elevate: ? Ice as needed for swelling and discomfort; elevate extremity frequently above the heart. Motion/Exercise: ? Weight bear as tolerated operative extremity (walker/cane for ambulation assistance as needed) ? Per PT/OT. ? Straight leg raises daily: 1-2 sets of 10 reps Pain Medications: ? Oral narcotic as prescribed. Wean as tolerated. Acetaminophen as needed. Blood Clot Prevention (DVT): ? Medication: Rivaroxaban (5 total days) Driving: ? Do not drive while taking narcotic pain medication ? Anticipate 4-6 weeks no [address] if operative leg is driving leg Dental: ? No elective dental work for 3 months post-op. If there is an urgent/emergent dental need, contact our office for an antibiotic prescription. Smoking/Alcohol: ? Do not smoke; do no drink alcohol especially when taking postoperative oral narcotic medication Seek Care from you Primary Care Provider if you experience the following issues in the postoperative phase and beyond: ? Bacterial infections such as: pneumonia, bacterial skin infection (cellulitis), UTI, high fever, chills unrelated to the operative body part - call your primary care physician urgently for treatment in hopes to protect your health and the metal implant. Referrals: ? PT, OT per patient preference - evaluate & treat total hip arthroplasty protocol, anterior approach (gait training, ROM, ADLs) Vaccines: ? No vaccines until 4-6 weeks postop If there are any acute concerns regarding your surgery, please call our orthopedic clinic ([phone]) Discharge Diet: Diabetic Follow Up Appointments: Kevin Nelson MD [Primary Care Provider, Family Practice] Referral Note: Call [facility] and make an appointment with Dr. Nelson within 1 week after discharge from [address] [place] [address]. Forms: [facility], [facility] Instructions Wound Care: Place Mepilex on sacral wounds every 5-7 days Admit to: SNF Discharge Potential: Good Length of Stay: <30 days Can use facility standing orders?: Yes Code Status: DNR/DNI TEDs: Bilateral Knee Rehab Potential: Good Therapy: Physical Therapy and Occupational Therapy Therapy Orders: Evaluate and Treat, Total Hip Protocol and Total Hip Precautions Oxygen: No Urinary Catheter: Yes Glucose Checks: BID Lab Orders: CBC on 11/21 (last Hgb was 10.0 on 11/16) Orders are good >30 days: Yes Signature: Gladis Stevens MD
[2024-11-18 08:50] VITALS: BP 165/80; PULSE 80; RESP 16; TEMP 36.7; O2SAT 96
[2024-11-18] MEDS: LOSARTAN POTASSIUM 50 MG TABLET PO (10:47)
[2024-11-18] MEDS: SENNOSIDES 1 TAB TABLET 2 TAB PO (10:48)
[2024-11-18] MEDS: PROPRANOLOL 20 MG TABLET PO (10:48)
[2024-11-18] MEDS: RIVAROXABAN 10 MG TABLET PO (10:48)
[2024-11-18] MEDS: METFORMIN 1,000 MG TABLET 1000 MG PO (10:48)
[2024-11-18] MEDS: ISOSORBIDE MONONITRATE ER 30 MG TAB PO (10:49)
[2024-11-18] MEDS: SODIUM CHLORIDE 0.9 % (FLUSH) 10 ML SYRINGE 5 ML IVF (10:50)
[2024-11-18] MEDS: SITAGLIPTIN PHOSPHATE 50 MG TABLET 100 MG PO (10:50)
[2024-11-18] MEDS: LIDOCAINE 5% PATCH 1 PATCH TRANSDERMA (10:51)
--- NOTE | 2024-11-18 11:11 | PC.NURSE ---
Pt is pleasant to care for. VSS. Pain is well controlled with scheduled tylenol and ice. Pt is experiencing mild nausea this morning, ate approximately 50% of breakfast. Pt is eager to discharge. Pt is transferring and ambulating with assist of one and walker, tolerating well. Pt belongings and discharge instructions signed. No questions or concerns at this time. Nurse to nurse report was given to [facility] and [facility] at 1030. Pt discharged at 1100 via EMS.
== END 2024-11-18 11:00 | DRG 522 ==
LOC: ED 20:12 → MEDSURG 20:39
PROVIDERS: Family Medicine; Orthopaedic Surgery Sports Medicine; Admitting Provider Family Medicine; Emergency Provider Family Medicine; PCP Surgery; Visit Provider Family Medicine
PROC: 0SRR01A Replacement of Right Hip Joint, Femoral Surface with Metal Synthetic Substitute, Uncemented, Open Approach (ICD-10-PCS; principal; 2024-11-14 12:30)
DX: S72.001A Fracture of unspecified part of neck of right femur, initial encounter for closed fracture (principal); W01.0XXA Fall on same level from slipping, tripping and stumbling without subsequent striking against object, initial encounter; Y92.007 Garden or yard of unspecified non-institutional (private) residence as the place of occurrence of the external cause; N31.2 Flaccid neuropathic bladder, not elsewhere classified; R42 Dizziness and giddiness; D64.9 Anemia, unspecified; Z79.84 Long term (current) use of oral hypoglycemic drugs; E11.42 Type 2 diabetes mellitus with diabetic polyneuropathy; R26.89 Other abnormalities of gait and mobility; E11.51 Type 2 diabetes mellitus with diabetic peripheral angiopathy without gangrene; I12.9 Hypertensive chronic kidney disease with stage 1 through stage 4 chronic kidney disease, or unspecified chronic kidney disease; E11.22 Type 2 diabetes mellitus with diabetic chronic kidney disease; N18.30 Chronic kidney disease, stage 3 unspecified; R25.1 Tremor, unspecified; J44.9 Chronic obstructive pulmonary disease, unspecified; Z95.5 Presence of coronary angioplasty implant and graft; I25.10 Atherosclerotic heart disease of native coronary artery without angina pectoris; I44.0 Atrioventricular block, first degree; E78.5 Hyperlipidemia, unspecified
CPT/HCPCS: 01230; 36415; 71045; 73501; 73502; 76000; 80048; 80076; 81001; 82962; 83605; 85025; 87086; 93005; 94761; 97110; 97116; 97162; 97165; 97530; 97535; 99100; 99284; 99285; A9270; C1776; J0330; J0690; J1171; J2270; J2405; J2704; J2710; J3010; J3490; J7030

== ENCOUNTER 2024-11-18 11:11 | Outpatient (CLI) | payer MEDICARE, SELFPAY | END 2024-11-18 11:12 | disposition home or self-care (01) | LOC: AMB 11-21 11:00 | PROVIDERS: PCP Surgery; Visit Provider Internal Medicine | DX: R53.1 Weakness (principal); Z99.3 Dependence on wheelchair | CPT/HCPCS: A0425; A0428 ==

== ENCOUNTER 2024-11-24 21:19 | Outpatient (REF) | payer MEDICARE, SELFPAY ==
[2024-11-24 21:34] LABS: Appearance Urine Clear (Clear)
== END 2024-11-24 21:20 | disposition home or self-care (01) ==
LOC: NPINS 21:19
PROVIDERS: PCP Surgery; Visit Provider Nurse Practitioner Gerontology
DX: R11.0 Nausea (principal); D72.9 Disorder of white blood cells, unspecified
CPT/HCPCS: 81001; 87086

== ENCOUNTER 2024-11-28 12:16 | Outpatient (CLI) | payer MEDICARE, SELFPAY | END 2024-11-28 12:17 | disposition home or self-care (01) | LOC: AMB 11-30 09:24 | PROVIDERS: PCP Surgery; Visit Provider Emergency Medicine | DX: R41.82 Altered mental status, unspecified (principal) | CPT/HCPCS: A0425; A0429 ==

== ENCOUNTER 2024-11-28 12:39 | Inpatient (IN) | payer MEDICARE, SELFPAY ==
[2024-11-28] VITALS (32 sets, daily range): BP systolic 157–207; BP diastolic 68–96; PULSE 64–73; RESP 16–20; TEMP 36.3–36.4; O2SAT 94–100; BMI 26.5
--- NOTE | 2024-11-28 13:04 | ED.GENADULT ---
HPI - General Adult General Date Seen: 11/28/24 Chief complaint: Altered Mental Status Stated complaint: Weakness Time Seen by Provider: 11/28/24 12:43 History of Present Illness HPI narrative: 84-year-old gentleman who has a history of recent hip fracture and repair done here in [place], also coronary disease with stents, chronic kidney disease, hypertension, anemia, peripheral neuropathy, essential tremor, Patient had a fall on 11/13/2024 and had repair of a right femoral neck fracture the following day by Dr. Elvin pineda, here in [facility] 11/14. Per discharge summary dated 11/18 (1) Femoral neck fracture: - s/p mechanical fall 11/13/2024 - Right hip bipolar hemiarthroplasty with Dr. Mueller on 11/14/24 (2) Diabetes mellitus type 2, controlled: - on Metformin, Sitagliptin, and Glipizide as outpatient (held on admission, restarted 11/15), SSI as well - Hemoglobin A1c on September 05 was 7.5 (3) History of coronary artery stent placement: - total of 5 coronary stents placed, most recently 05/17 in the RCA with EF 60% at that time; then had restenosis of a stent in his diagonal which was not amenable to intervention - Video Producer recommends clopidogrel and aspirin for 1 year (until April 2025), followed by Clopidogrel indefinitely (4) Atonic bladder: - self catheterization at home QID, vallecillo placed 11/13 - would like to leave vallecillo in upon discharge 11/18 until improved function, will replace or remove by 12/12/24 (5) Coronary artery disease: - recurrent interventions with coronary stents (2006, 2013, 2016 angioplasty, 2019, 2021, 2024) - held Plavix and ASA for short course while on Xarelto, restarting 11/20 (6) Stage 3 chronic kidney disease: - Creatinine on 09/05/24 was 1.3; admission creatinine 1.0 and has remained between 1.0 and 1.1 since admission (7) Anemia: - chronic, normocytic, mild - admission Hgb 12.5 --> postoperative Hgb 10.8 --> 10.0 - continue to follow, on Xarelto x5 days postoperatively, then back to DAPT per above (8) Peripheral neuropathy: (9) Impairment of balance: - balance difficulties due to peripheral neuropathy prior to hip fracture; may need SNF prior to d/c home (10) Essential tremor: - new diagnosis on 11/13/2024, Propanolol initiated 11/15 Labs during his hospitalization from 11/16 showed a white count of 8.2, hemoglobin of 10.0, platelet count 95 (has been trending down since 2021). Sodium 135, potassium 4.0, chloride 106, bicarb 25, BUN 15, creatinine 1.1, glucose 256, calcium was low at 7.6 (seems to be at his chronic baseline) It also appears he had labs on 11/24/2024. White count gone up to 15.2, hemoglobin remained stable at 10.5, platelet count had increased up to 385. Urinalysis was abnormal with 10-25 white cells per high-power field, 1+ leukocyte esterase, positive nitrite Urine culture from 11/24 is growing> 100,000 colonies of E coli. Pansensitive Family notes that ever since he got to [facility] he has been doing poorly. He has been more confused than normal. Less active than normal. Complaining of pain in his right buttock. Not running a fever. He had a little bit of vomiting for couple of days about 8 or 9 days ago but since then none. Bowel movements have been. No abdominal pain. He was not acting riding seeming more confused than normal . They noted he was much more confused than normal, not able to complete full sentences, sometimes hallucinating and seeing bugs on the wall. No fevers. No cough. No chest pain. His family had his doctors at [facility] do some labs last week. Family notes he was diagnosed with the UTI and started on antibiotics Thursday. From paperwork from his care center at [facility] he was prescribed Macrobid. His family notes that he got an IM injection of an antibiotic last Thursday and has had 2 doses of Macrobid on Thursday and Thursday. He is not improving so his family wanted him to be brought here today to be rechecked. They were concerned that either he is on the wrong antibiotic or there is something else wrong. Related Data Home Medications ?Medication ?Instructions ?Recorded ?Confirmed clopidogrel 75 mg tablet 75 mg PO DAILY 10/25/21 11/28/24 glipizide 5 mg tablet 5 mg PO DAILY 10/25/21 11/28/24 isosorbide mononitrate 30 mg 30 mg PO DAILY 10/25/21 11/28/24 tablet,extended release 24 hr losartan 50 mg tablet 50 mg PO DAILY 10/25/21 11/28/24 nitroglycerin 0.4 mg sublingual 0.4 mg sublingual Q5M PRN 10/25/21 11/28/24 tablet rosuvastatin 20 mg tablet 10 mg PO HS 10/25/21 11/28/24 metformin 1,000 mg tablet 1,000 mg PO BID 11/14/24 11/28/24 ranolazine 500 mg tablet,extended 500 mg PO Q12H 11/14/24 11/28/24 release,12 hr sitagliptin phosphate 100 mg 100 mg PO DAILY 11/14/24 11/28/24 tablet (Januvia) insulin aspart U-100 100 unit/mL 1 sliding scale dose subcut 11/28/24 11/28/24 subcutaneous solution (Novolog USEASDIRECTD U-100 Insulin aspart) insulin glargine 100 unit/mL (3 10 unit subcut BID 11/28/24 11/28/24 mL) subcutaneous pen nitrofurantoin 100 mg PO BID 11/28/24 11/28/24 monohydrate/macrocrystals 100 mg capsule (Macrobid) ondansetron 4 mg disintegrating 4 mg PO Q6-8H PRN 11/28/24 11/28/24 tablet Previous Rx's ?Medication ?Instructions ?Recorded acetaminophen 500 mg tablet 1,000 mg (2 x 500 mg) PO Q8H #30 11/17/24 tabs aspirin 81 mg tablet 81 mg PO DAILY #30 tabs 11/17/24 docusate sodium 100 mg capsule 100 mg PO BID PRN Constipation #60 11/17/24 caps lidocaine 5 % topical patch 1 patch transdermal Q24H #30 ea 11/17/24 oxycodone 5 mg tablet 2.5 - 5 mg (0.5 - 1 x 5 mg) PO 11/17/24 Q4-6H PRN pain #42 tabs propranolol 20 mg tablet 20 mg PO DAILY #30 tabs 11/17/24 sennosides 8.6 mg-docusate sodium 1 - 4 tab-cap (1 - 4 x 8.6-50 mg) 11/17/24 50 mg tablet (Senna-S) PO BID PRN constipation #60 tabs Allergies Allergy/AdvReac Type Severity Reaction Status Date / Time atenolol Allergy Unknown Verified 11/28/24 12:47 atorvastatin Allergy Unknown Myalgia Verified 11/28/24 12:47 lisinopril AdvReac Unknown Cough Verified 11/28/24 12:47 metoprolol AdvReac Unknown Headache Verified 11/28/24 12:47 PFSH PFSH Medical History (Updated 11/28/24 @ 15:56 by Shakir Del Rio MD) Essential tremor ?G25.0 - Essential tremor (ICD-10) Impairment of balance ?R26.89 - Other abnormalities of gait and mobility (ICD-10) Peripheral neuropathy ?G62.9 - Polyneuropathy, unspecified (ICD-10) Hyperlipidemia ?E78.5 - Hyperlipidemia, unspecified (ICD-10) Hypertension ?I10 - Essential (primary) hypertension (ICD-10) Anemia ?D64.9 - Anemia, unspecified (ICD-10) Stage 3 chronic kidney disease ?N18.30 - Chronic kidney disease, stage 3 unspecified (ICD-10) Diabetes mellitus type 2, controlled ?E11.9 - Type 2 diabetes mellitus without complications (ICD-10) Atonic bladder ?N31.2 - Flaccid neuropathic bladder, not elsewhere classified (ICD-10) Peripheral vascular disease ?I73.9 - Peripheral vascular disease, unspecified (ICD-10) Coronary artery disease ?I25.10 - Atherosclerotic heart disease of [place] coronary artery without angina pectoris (ICD-10) Surgical History (Updated 11/21/24 @ 00:01 by Kristie Fang) History of right hip hemiarthroplasty (11/14/24) ?Z96.641 - Presence of right artificial hip joint (ICD-10) History of laparoscopy ?Z98.890 - Other specified postprocedural states (ICD-10) History of hernia repair ?Z98.890 - Other specified postprocedural states (ICD-10) ?Z87.19 - Personal history of other diseases of the digestive system (ICD-10) History of coronary artery stent placement ?Z95.5 - Presence of coronary angioplasty implant and graft (ICD-10) Family History Father Heart disease Stroke Sister Heart disease Brother Heart disease Diabetes Social History Narrative: He lives in [place] with his . 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 He does not smoke. He rarely drinks alcohol. Code status is DNR. is healthcare power of civil rights attorney. What is your current living situation?: I presently have a place to live Problems where you live: no known problems In the past 12 months, utilities in danger of being shut off: no In past 12 months, lack of transportation kept you from medical appts, meetings, work, or getting things needed for daily living: no In the past 12 mos, have been you worried that your food would run out before you had money to buy more?: never true In the past 12 mos, the food you bought just didn't last and you didn't have money to buy more?: never true Smoking Status: Never smoker How often do you have a drink containing alcohol: never AUDIT-C Alcohol total score: 0 Non-prescribed substance use: denies use How often does anyone, including family, friends and others, physically hurt you: never How often does anyone, including family, friends and others, insult or talk down to you: never How often does anyone, including family, friends and others, threaten you with harm: never How often does anyone, including family, friends and others, scream or curse at you: never service: No Exam Narrative: Exam Narrative: Constitutional: Appears well-developed and well-nourished. Alert. Conversant but poor historian. Seems little confused. When asked him how he is doing he says, ?like horse shit?. HENT: Head: Atraumatic. Nose: Nose normal. Mouth/Throat: Oral mucosa is clear and moist. Perhaps mildly dry but not desiccated or cracked. no trismus. Pharynx normal. Tonsils symmetric. No tonsillar enlargement, erythema, or exudate. Eyes: Conjunctivae normal. EOM normal. Pupils equal, round, and reactive to light. No scleral icterus. Neck: Normal range of motion. Neck supple. No tracheal deviation present. No JVD Cardiovascular: Normal rate, regular rhythm. No gallop. No friction rub. No murmur heard. Symmetric radial and PT artery pulses Pulmonary/Chest: Effort normal. He is too weak to sit up even with assistance of 1. No stridor. No respiratory distress. No wheezes. No rales. No rhonchi . No tenderness. Abdominal: Soft. Bowel sounds normal. No distension. No mass. Left lower quad tenderness. No rebound. No guarding. Musculoskeletal: RUE: Normal range of motion. No tenderness. No deformity LUE: Normal range of motion. No tenderness. No deformity No T or L-spine tenderness. He does have redness of the skin affecting the gluteal cleft and the medial upper right buttock. There is some superficial skin breakdown but no deep abscess or purulent drainage. No bleeding. RLE: Right anterolateral hip incision looks great. Subtle stippled ecchymosis on right lateral hip/buttock apparently related to bruising from gravel carrasco from the initial fall when he broke his hip. Somewhat limited flexion of the hip and knee due to mild right hip pain. Femoral shaft, knee, lower leg, ankle, foot. No edema. No tenderness. No deformity He has a chronic ulcer on the medial aspect of the right great toe for which he but working with the wound clinic. This is largely healed. There is a little bit of thickening of the skin there but no ulceration. No signs of infection. He does have duskiness of both of his toes with somewhat slow cap refill. He does have palpable DP pulses. LLE: Normal range of motion. No edema. No tenderness. No deformity Neurological: Alert and oriented to person, place, but not date. Generalized nonfocal weakness. Requires assistance to roll over in bed for back and buttock exam. No focal strength deficit. CN II-VII intact. No sensory deficit. GCS eye subscore is 4. GCS verbal subscore is 5. GCS motor subscore is 6. Normal coordination Skin: Skin is warm and dry. No rash noted. No pallor. Normal capillary refill. Psychiatric: Normal mood. Normal affect. Const: Vital Signs, click to edit/add: Vital Signs - 24 hr 11/28/24 12:49 11/28/24 13:12 11/28/24 13:15 Temperature 97.3 F L Pulse Rate 67 68 Pulse Rate [Pulse Oximeter] 64 Respiratory Rate 20 Blood Pressure Blood Pressure [Le ft Upper Arm] 172/82 H Pulse Oximetry 98 97 97 Oxygen Delivery Me thod Room Air 11/28/24 13:17 11/28/24 13:21 11/28/24 13:22 Temperature Pulse Rate 71 68 65 Pulse Rate [Pulse Oximeter] Respiratory Rate Blood Pressure 157/70 H 171/88 H Blood Pressure [Le ft Upper Arm] Pulse Oximetry 96 98 99 Oxygen Delivery Me thod 11/28/24 13:30 11/28/24 13:32 11/28/24 13:45 Temperature Pulse Rate 67 70 68 Pulse Rate [Pulse Oximeter] Respiratory Rate Blood Pressure 158/72 H Blood Pressure [Le ft Upper Arm] Pulse Oximetry 98 98 100 Oxygen Delivery Me thod 11/28/24 13:47 11/28/24 14:44 11/28/24 14:45 Temperature Pulse Rate 71 69 Pulse Rate [Pulse Oximeter] Respiratory Rate Blood Pressure 161/75 H Blood Pressure [Le ft Upper Arm] Pulse Oximetry 98 95 Oxygen Delivery Me thod 11/28/24 14:50 11/28/24 14:56 11/28/24 15:00 Temperature Pulse Rate 69 69 69 Pulse Rate [Pulse Oximeter] Respiratory Rate Blood Pressure 178/82 H Blood Pressure [Le ft Upper Arm] Pulse Oximetry 94 97 95 Oxygen Delivery Me thod 11/28/24 15:02 11/28/24 15:15 11/28/24 15:17 Temperature Pulse Rate 69 67 70 Pulse Rate [Pulse Oximeter] Respiratory Rate Blood Pressure 183/73 H 200/96 H Blood Pressure [Le ft Upper Arm] Pulse Oximetry 95 97 98 Oxygen Delivery Me thod 11/28/24 15:25 11/28/24 15:30 11/28/24 15:33 Temperature Pulse Rate 70 67 67 Pulse Rate [Pulse Oximeter] Respiratory Rate Blood Pressure 170/96 H 191/70 H Blood Pressure [Le ft Upper Arm] Pulse Oximetry 99 97 98 Oxygen Delivery Me thod Course Vital Signs Vital signs: Initial Vital Signs Temperature 97.3 F L 11/28/24 12:49 Temperature Source Temporal Artery Scan 11/28/24 12:49 Pulse Rate 64 11/28/24 12:49 Respiratory Rate 20 11/28/24 12:49 Blood Pressure 172/82 H 11/28/24 12:49 Blood Pressure Mean 112 H 11/28/24 12:49 Pulse Oximetry 98 11/28/24 12:49 Oxygen Delivery Method Room Air 11/28/24 12:49 Vital Signs Temperature 97.3 F L 11/28/24 12:49 Pulse Rate 64 11/28/24 12:49 Respiratory Rate 20 11/28/24 12:49 Blood Pressure 172/82 H 11/28/24 12:49 Pulse Oximetry 98 11/28/24 12:49 Oxygen Delivery Method Room Air 11/28/24 12:49 Temperature 97.3 F L 11/28/24 12:49 Pulse Rate 67 11/28/24 15:33 Respiratory Rate 20 11/28/24 12:49 Blood Pressure 191/70 H 11/28/24 15:33 Pulse Oximetry 98 11/28/24 15:33 Oxygen Delivery Method Room Air 11/28/24 12:49 Medications Administered Medications: Discontinued Medications Generic Name Dose Route Start Last Admin Trade Name Freq PRN Reason Stop Dose Admin Sodium Chloride 1,000 mls @ 1,000 mls/hr 11/28/24 13:30 11/28/24 14:50 0.9 % Sodium Chloride 1000 Ml IV 11/28/24 14:29 1,000 mls/hr .Q1H MESSI Administration Ceftriaxone Sodium 1 gm/ 100 mls @ 200 mls/hr 11/28/24 13:28 11/28/24 15:20 Sodium Chloride IVPB 11/28/24 13:29 Infused ONCE ONE Infusion Pantoprazole Sodium 80 mg 11/28/24 15:03 11/28/24 15:21 Pantoprazole Sodium 40 Mg Inj IVP 11/28/24 15:04 80 mg ONCE ONE Administration Medical Decision Making [facility] Narrative Medical decision making narrative: 84-year-old gentleman coming back to the ER today with concern for altered mental status with nonfocal confusion, intermittent loosen the shins, along with poor appetite and generally doing poorly for the past several days. Concern is for possible delirium or altered mental status due to an acute medical illness such as infection or electrolyte disturbance or medication side effect. 1. Infectious disease. He is ill with altered mental status but is fortunately hemodynamically stable and not febrile. Venous lactic acid is 2.1. His only SIRS criteria is leukocytosis. We undertook a workup for source of infection. He had a urinalysis done last that is growing pansensitive E coli. He has been on Macrobid b.i.d. sets than what is not improving. Labs last week showed a leukocytosis with a white count of 15 and today white count is still elevated but overall not trending upward. Does 13.9. We did broaden antibiotic coverage with Rocephin to cover for UTI. Repeat urinalysis today is still abnormal but perhaps slightly improved with 5-10 white cells per high-power field, 10-25 red cells, trace leukocyte esterase. Nitrate is now negative. On clinical exam I do not see any signs of redness or infection around his recent hip surgery incision. He does have some redness of the skin of his buttock near the gluteal cleft. This raises concern for possible cellulitis of the buttock, however could just be because he has been sitting on it for the past few days. We placed the patient with pillows behind his back to take weight off the buttocks. This will be re-evaluated by the admitting hospitalist and if persistently red after decompression she can start antibiotics to cover skin jeovanny. Likely would add vanco to his Rocephin. He also has tenderness on abdominal exam. CT scan shows nonspecific fluid in the colon point, possibly colitis. He is not having any diarrhea. Will add on C diff study however clinically symptoms do not fit with C diff. CT scan also shows questionable mild duodenitis. No perforation or abscess or other acute surgical emergency. Will add on Protonix for potential stress ulcer/peptic ulcer disease. He does not have any cough or shortness of breath. Oxygen normal. Chest x-ray negative for pneumonia. COVID/influenza/RSV PCR negative. 2. Electrolytes/renal. Sodium mildly low at 133 but likely not low enough to be causing symptoms. Kidney function normal. Liver functions normal. 3. Cardiac. EKG shows sinus rhythm. No ischemia. Troponin undetectable. Not having any chest pain. 4. GI. CT scan suggest possible duodenitis. No evidence for perforation. No black or bloody stools to suggest GI bleed. Hemoglobin is essentially at baseline at 9.9 (within half a point of last week). No evidence for any serious GI bleeding. Will start on Protonix. CT scan also shows fluid throughout the colon and rectum which could possibly related to colitis. He is not having any diarrhea. Will order C diff. Discussed with hospitalist, Celine Ham. She accepts for admission. Please see hospitalist notes for further details about admission status and further workup. Lab Data Labs: Lab Results 11/28/24 11/28/24 11/28/24 Range/Units 13:50 14:07 15:15 WBC 13.89 H (4.50-11.00) K/uL RBC 3.20 L (4.30-5.90) m/uL Hgb 9.9 L (13.5-17.5) gm/dL Hct 29.5 L (37.0-53.0) % MCV 92 (80-100) fL MCH 31 (26-34) pg MCHC 34 (32-36) gm/dL RDW Coeff of Elan 14.7 (11.5-15.5) % Plt Count 378 (140-440) K/uL Neut % (Auto) 72.6 H (42.0-72.0) % Lymph % (Auto) 14.5 L (20-44) % Ransom % (Auto) 9.4 (0.0-11.0) % Eos % (Auto) 2.6 (0.0-7.0) % Baso % (Auto) 0.3 (0.0-3.0) % Neut # (Auto) 10.10 H (1.7-7.0) K/uL Lymph # (Auto) 2.00 (0.90-2.90) K/uL Ransom # (Auto) 1.30 H (0.00-0.90) K/UL Eos # (Auto) 0.40 (0.00-0.50) K/uL Baso # (Auto) 0.00 (0.00-0.30) K/uL Abs Immat Gran (auto) 0.10 (0.00-0.30) K/uL Imm/Tot Granulo (auto) 0.6 % Sodium 133 L (135-149) mmol/L Potassium 4.4 (3.6-5.1) mmol/L Chloride 99 (96-114) mmol/L Carbon Dioxide 26 (20-32) mmol/L Anion Gap 8 (7-15) mEq/L BUN 17 (7-30) mg/dL Creatinine 1.0 (0.5-1.5) mg/dL Estimated GFR 73 ml/min Glucose 149 H (60-115) mg/dL Lactate 2.1 H (0.5-1.9) mmol/L Calcium 9.0 (8.4-10.6) mg/dL Total Bilirubin 0.5 (0.1-1.5) mg/dL AST 27 (12-35) U/L ALT 22 (4-50) U/L Alkaline Phosphatase 89 (40-150) U/L Troponin I < 0.01 (0.01-0.04) ng/mL Total Protein 6.1 (6.0-8.3) g/dL Albumin 3.6 (3.3-5.0) g/dL Urine Color Dark yellow (Yellow) Urine Appearance Clear (Clear) Urine pH 5.5 (5.0-8.5) Ur Specific [place] 1.015 (1.000-1.030) Urine Protein Negative (Negative) Urine Glucose (UA) Negative (Negative) Urine Ketones 1+ A (Negative) Urine Blood 2+ A (Negative) Urine Nitrite Negative (Negative) Urine Bilirubin Negative (Negative) Urine Urobilinogen 0.2 (0.2-1.0) Ur Leukocyte Esterase Trace A (Negative) Urine RBC 10-25 A (0-2) Urine WBC 5-10 A (0-5) Ur Squamous Epith Cells None (None-Few) Urine Bacteria None (None) SARS-CoV-2 (PCR) Negative SARS-CoV-2 (Negative) Influenza Type A (PCR) Negative PCR FLU A (Negative) Influenza Type B (PCR) Negative PCR FLU B (Negative) RSV (PCR) Negative PCR RSV (Negative) Imaging Data CT scan - abdomen: Attestation: I have reviewed the pertinent imaging results. Radiologist's impression: IMPRESSION: Fluid throughout the colon and rectum which could suggest diarrheal illness/low-grade colitis in the appropriate clinical setting. No bowel obstruction, or drainable fluid collections. Mild proximal duodenal wall thickening, concerning for duodenitis. No free intraperitoneal air or drainable fluid collections. Chest x-ray: Attestation: I have reviewed the pertinent imaging results. Radiologist's impression: Impression: No acute cardiopulmonary disease. ECG Data Attestation: I personally reviewed and interpreted this ECG as follows: Interpretation: Sinus rhythm with first-degree AV block Rate 68 WV interval 264 Normal QRS axis. Right bundle-branch block pattern Nonspecific T-wave flattening. T-wave inversions V1-V4. No ST segment elevation or depression. QTC 472, QTC 501 Discharge Plan Discharge Clinical Impression: Acute UTI, Acute alteration in mental status, Duodenitis Patient Disposition: Admitted As Observation
--- NOTE | 2024-11-28 13:29 | CRLHL7_ITS ---
For Patients: As a result of the Century Cures Act, medical imaging exams and procedure reports are released immediately into your electronic medical record. You may view this report before your referring provider. If you have questions, please contact your health care provider. Indication: WEAKNESS Technique: AP view of the chest. Comparison: 11/13/2024. Findings: Small lung volumes. Mildly elevated right hemidiaphragm. Normal cardiomediastinal silhouette aside from coronary artery stent. No focal consolidation, pleural effusions, or visualized pneumothorax. Impression: No acute cardiopulmonary disease. Dictated by Kai Koenig MD @ 11/28/2024 2:54:34 PM (Electronically Signed)
--- NOTE | 2024-11-28 13:29 | CRLHL7_ITS ---
For Patients: As a result of the Century Cures Act, medical imaging exams and procedure reports are released immediately into your electronic medical record. You may view this report before your referring provider. If you have questions, please contact your health care provider. INDICATION: Confusion, weakness, left lower quadrant tenderness. TECHNIQUE: CT abdomen and pelvis acquired with 100 cc Omnipaque 350 IV contrast. COMPARISON: June 13, 2020. FINDINGS: Lower chest: Scattered atelectasis. Liver: Unremarkable. Normal in size and attenuation. No suspicious masses. Gallbladder and bile ducts: Cholelithiasis without CT evidence of acute cholecystitis. Pancreas: Fatty atrophy. No mass or inflammation. Spleen: Unremarkable. Normal in size. No masses. Adrenal glands: Unremarkable. No nodules. Kidneys: Tiny cortical hypodensities, too small to characterize.. No suspicious masses, stones, or hydronephrosis. GI tract: Mild proximal duodenal wall thickening. Fluid throughout the colon and rectum. Colonic diverticulosis without diverticulitis. No bowel obstruction. Normal appendix. Vasculature: Aortoiliac arterial calcifications. Abdominal aorta is normal in caliber. Mesenteric arteries are patent. Lymph nodes: No lymphadenopathy. Peritoneum/Abdominal Wall: Unremarkable. No sign of mass or infiltration. No free air or significant free fluid. Pelvis: Unremarkable. Bones: Right hip arthroplasty without hardware complication. IMPRESSION: Fluid throughout the colon and rectum which could suggest diarrheal illness/low-grade colitis in the appropriate clinical setting. No bowel obstruction, or drainable fluid collections. Mild proximal duodenal wall thickening, concerning for duodenitis. No free intraperitoneal air or drainable fluid collections. Please note that all CT scans at this facility use dose modulation, iterative reconstruction, and/or weight-based dosing when appropriate to reduce radiation dose to as low as reasonably achievable. Dictated by Luis Benitez MD @ 11/28/2024 2:51:58 PM (Electronically Signed)
--- OUTSIDE RECORDS SUMMARY | 2024-11-28 13:40 | XMS_ITS | Encounter Summary ---
Author Organization [place] Address [address] [place] [address] Care Team Providers Care Director Telemetry Name Role Phone System, Provider Not In Primary Care Provider Un available [facility], [facility] Primary Care Provider Kevin Nelson MD Primary Care Provider Simon Gudino MD Unavailable Unavail able Ellen Govea PA-C Unavailable Fracnk Alfaro MD Unavailable Unavailab leigh Soria, July E COMMUNICATION PROFESSOR HEAT AND FROST INSULATOR Unavailable [phone] Franck Alfaro MD Unavailable Unavailab leigh Soria, July E COMMUNICATION PROFESSOR HEAT AND FROST INSULATOR Unavailable [phone] Franck Alfaro MD Unavailable Unavailab leigh Soria, July E COMMUNICATION PROFESSOR HEAT AND FROST INSULATOR Unavailable [phone] Marky Blum MD Unavailable Un available Encounter Details Date Type Department Care Team (Late st Contact Info) Description 12/01/2011 Office Visit-[facility] [address] [place] [address] Unknown, Doctor, Social History Tobacco Use Types Packs/Day Years Used Date Smoking Tobacco: Never Assessed Sex and Gender Information Value Date Recorded Sex Assigned at Not on file Legal Sex Male 4:49 AM 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 - CAD, 414.00 2. - Hyperlipidemia, 272.4 3. - Hypertension, benign, 401.1 4. PTCA, V45.82 5. MA-S/P Anterior, 412 6. Shortness of breath, 786.05 [...] delightful 71-year-old gentleman who presents to the [facility] today for his annual cardiology follow-up. As you recall, he is followed, in our office by Dr. Gudino with a past medical history of known coronary artery disease who had stenting to his LAD after presenting with a non-ST elevation MA approximately five years ago. 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; Sexual Activity- sexually inactive; Residence - lives with ; Place of - [place]; Spouse's Occupation -retired; PHYSICAL EXAMINATION VITAL SIGNS: [...] filedocumented in this encounter Care Teams Director Telemetry Relationship Specialty Start Date End Date System, Provider Not In PCP - General Clinic 07/26/13 10/12/13 [facility], [facility] [address] [place] [address] PCP - General 10/13/13 04/16/14 Kevin Nelson MD [address] [place] [address] PCP - General 04/17/14 Simon Gudino MD Assigned Heart and Vascular Provider 12/16/19 05/08/20 Ellen Govea PA-C [address] [place] [address] Assigned Heart and Vascular Provider 05/09/20 03/16/21 Franck Alfaro MD Assigned Heart and Vascular Provider 03/17/21 12/27/21 Neetu Soria, COMMUNICATION PROFESSOR HEAT AND FROST INSULATOR [address] [place] [address] Assigned Heart and Vascular Provider 12/28/21 04/18/22 Franck Alfaro MD [address] [place] [address] Assigned Heart and Vascular Provider 04/19/22 06/27/22 Neetu Soria, COMMUNICATION PROFESSOR HEAT AND FROST INSULATOR [address] [place] [address] Assigned Heart and Vascular Provider 06/28/22 01/15/24 Franck Alfaro MD Assigned Heart and Vascular Provider 04/17/24 06/14/24 Neetu Soria APRN [facility] [address] [place] [address] Assigned Heart and Vascular Provider 06/15/24 09/13/24 Marky Blum MD Assigned Heart and Vascular Provider 09/14/24 documented as of this encounter
--- OUTSIDE RECORDS SUMMARY | 2024-11-28 13:40 | XMS_ITS | Encounter Summary ---
Author Organization [place] Address [address] [place] [address] Care Team Providers Care Felter Tennis Balls Name Role Phone System, Provider Not In Primary Care Provider Un available [facility], [facility] Primary Care Provider Kevin Nelson MD Primary Care Provider Simon Gudino MD Unavailable Unavail able Ellen Govea PA-C Unavailable Franck Alfaro MD Unavailable Unavailab leigh Soria, July E ASSISTANT CENTER DIRECTOR SANITATION TRUCK CLEANER Unavailable [phone] Franck Alfaro MD Unavailable Unavailab leigh Soria, July E ASSISTANT CENTER DIRECTOR SANITATION TRUCK CLEANER Unavailable [phone] Franck Alfaro MD Unavailable Unavailab leigh Soria, July E ASSISTANT CENTER DIRECTOR SANITATION TRUCK CLEANER Unavailable [phone] Marky Blum MD Unavailable Un available Encounter Details Date Type Department Care Team (Late st Contact Info) Description 01/12/2012 Office Visit-[facility] [address] [place] [address] Unknown, Doctor, Social History Tobacco Use Types Packs/Day Years Used Date Smoking Tobacco: Never Assessed Sex and Gender Information Value Date Recorded Sex Assigned at Not on file 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 - CAD, 414.00 2. - Hypertension, benign, 401.1 3. Shortness of breath, 786.05 4. PTCA, V45.82 5. MS-S/P Anterior, 412 6. - Hyperlipidemia, 272.4 ALLERGIES [...] delightful 71-year-old gentleman who presents to the [facility] today for a follow-up [...] Also, a stress echocardiogram was done at [facility] showing noevidence of ischemia or infarction. 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; Sexual Activity- sexually inactive; Residence - lives with ; Place of - [place]; Spouse's Occupation -retired; REVIEW OF SYSTEMS GENERAL [...] on filedocumented in this encounter Care Teams Felter Tennis Balls Relationship Specialty Start Date End Date System, Provider Not In PCP - General Clinic 07/26/13 10/12/[address] [address] PCP - General 10/13/13 04/16/14 Kevin Nelson MD [address] [place] [address] PCP - General 04/17/14 Simon Gudino MD Assigned Heart and Vascular Provider 12/16/19 05/08/20 Ellen Govea PA-C [address] [place] [address] Assigned Heart and Vascular Provider 05/09/20 03/16/21 Franck Alfaro MD Assigned Heart and Vascular Provider 03/17/21 12/27/21 Neetu Soria, ASSISTANT CENTER DIRECTOR SANITATION TRUCK CLEANER [address] [place] [address] Assigned Heart and Vascular Provider 12/28/21 04/18/22 Franck Alfaro MD [address] [place] [address] Assigned Heart and Vascular Provider 04/19/22 06/27/22 Neetu Soria, ASSISTANT CENTER DIRECTOR SANITATION TRUCK CLEANER [address] [place] [address] Assigned Heart and Vascular Provider 06/28/22 01/15/24 Franck Alfaro MD Assigned Heart and Vascular Provider 04/17/24 06/14/24 Neetu Soria, ASSISTANT CENTER DIRECTOR SANITATION TRUCK CLEANER [address] [place] [address] Assigned Heart and Vascular Provider 06/15/24 09/13/24 Marky Blum MD Assigned Heart and Vascular Provider 09/14/24 documented as of this encounter
--- OUTSIDE RECORDS SUMMARY | 2024-11-28 13:40 | XMS_ITS | Encounter Summary ---
Author Organization [place] Address [address] [place] [address] Care Team Providers Care Vp Software Support Name Role Phone System, Provider Not In Primary Care Provider Un available [facility], [facility] Primary Care Provider Kevin Nelson MD Primary Care Provider [phone] Simon Gudino MD Unavailable Unavail able Ellen Govea PA-C Unavailable Franck Alfaro MD Unavailable Unavailab leigh Soria, July E SUPERVISOR AIRPLANE FLIGHT ATTENDANT CRYSTAL MACHINING COORDINATOR Unavailable [phone] Franck Alfaro MD Unavailable Unavailab leigh Soria, July E SUPERVISOR AIRPLANE FLIGHT ATTENDANT CRYSTAL MACHINING COORDINATOR Unavailable [phone] Franck Alfaro MD Unavailable Unavailab leigh Soria, July E SUPERVISOR AIRPLANE FLIGHT ATTENDANT CRYSTAL MACHINING COORDINATOR Unavailable [phone] Marky Blum MD Unavailable Un available Encounter Details Date Type Department Care Team (Late st Contact Info) Description 12/11/2010 Office Visit-[facility] [address] [place] [address] Simon Gudino MD Social History Tobacco Use Types Packs/Day Years Used Date Smoking Tobacco: Never Assessed Sex and Gender Information Value Date Recorded Sex Assigned at Not on file 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 DATE: 12/11/2010 PRATIK MADERA DATE OF : 1940 AGE: [age] years old Referring Physician: KRYSTLE LEROY CURRENT DIAGNOSES 1. - CAD, 414.00 2. - Hyperlipidemia, 272.4 3. PTCA, V45.82 4. NC-S/P Anterior, 412 5. - Hypertension, benign, 401.1 [...] Assessment, Followup of - CAD, Followup of NC-S/P Anterior and Followup of PTCA HISTORY OF PRESENT ILLNESS I had the opportunity to see Mr. Madera today. This 70-year-old gentleman was seen for follow up of his coronary disease. He is now four years out from stenting of the LAD after presenting with a non-ST elevation myocardial infarction. Clinically, he has done well over the last six months. He rounds of golf this summer and noticed [...] (which then resolved [facility]) remains completely resolved. 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 <FONT COLOR=#[id number]><FONT POINT=10> Weight- 224.30 lbs. Height- 67 CONSTITUTIONAL [...] person and place. MEDICATIONS UPDATED/STARTED TODAY: <FONT COLOR=#[id number]><FONT POINT=10> IMPRESSION/PLAN: 1. Coronary artery disease. He [...] know if you have any questions. <FONT COLOR=#[id number]><FONT POINT=10> TODAYS ORDERS 1. F/U with Ellen Alejandre PA-C 1 year Simon Gudino M.D. documented in this encounter Plan of Treatment Not on file documented as of this encounter Visit Diagnoses Not on filedocumented in this encounter Care Teams Vp Software Support Relationship Specialty Start Date End Date System, Provider Not In PCP - General Clinic 07/26/13 10/12/13 [facility], [facility] [address] [place] [address] PCP - General 10/13/13 04/16/14 Kevin Nelson MD [address] [place] [address] PCP - General 04/17/14 Simon Gudino MD Assigned Heart and Vascular Provider 12/16/19 05/08/20 Ellen Govea PA-C [address] [place] [address] Assigned Heart and Vascular Provider 05/09/20 03/16/21 Franck Alfaro MD Assigned Heart and Vascular Provider 03/17/21 12/27/21 Neetu Soria, SUPERVISOR AIRPLANE FLIGHT ATTENDANT CRYSTAL MACHINING COORDINATOR [address] [place] [phone] Assigned Heart and Vascular Provider 12/28/21 04/18/22 Franck Alfaro MD [address] [place] [address] Assigned Heart and Vascular Provider 04/19/22 06/27/22 Neetu Soria, SUPERVISOR AIRPLANE FLIGHT ATTENDANT CRYSTAL MACHINING COORDINATOR [address] [place] [address] Assigned Heart and Vascular Provider 06/28/22 01/15/24 Franck Alfaro MD Assigned Heart and Vascular Provider 04/17/24 06/14/24 Neetu Soria APRN [facility] [address] [place] [address] Assigned Heart and Vascular Provider 06/15/24 09/13/24 Marky Blum MD Assigned Heart and Vascular Provider 09/14/24 documented as of this encounter
--- OUTSIDE RECORDS SUMMARY | 2024-11-28 13:40 | XMS_ITS | Encounter Summary ---
Author Organization [place] Address [address] [place] [address] Care Team Providers Care Telephonic Nurse Case Manager Name Role Phone System, Provider Not In Primary Care Provider Un available [facility] Primary Care Provider Kevin Nelson MD Primary Care Provider Simon Gudino MD Unavailable Unavail able Ellen Govea PA-C Unavailable Franck Alfaro MD Unavailable Unavailab leigh Soria, July E CLINICAL VETERINARIAN KNITTED GARMENT FINISHER Unavailable [phone] Franck Alfaro MD Unavailable Unavailab leigh Soria, July E CLINICAL VETERINARIAN KNITTED GARMENT FINISHER Unavailable [phone] Franck Alfaro MD Unavailable Unavailab leigh Soria, July E CLINICAL VETERINARIAN KNITTED GARMENT FINISHER Unavailable [phone] Marky Blum MD Unavailable Un available Encounter Details Date Type Department Care Team (Late st Contact Info) Description 05/21/2010 Office Visit-[facility] [address] [place] [address] Simon Gudino MD Social History Tobacco Use Types Packs/Day Years Used Date Smoking Tobacco: Never Assessed Sex and Gender Information Value Date Recorded Sex Assigned at Not on file Legal Sex Male 4:49 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 DATE: 05/21/2010 FOREST MADERA DATE OF : 1940 AGE: [age] years old Referring Physician: KRYSTLE CARLOS CURRENT DIAGNOSES 1. - Chest Pain Precordial, 786.51 2. VT-S/P Anterior, 412 3. PTCA, V45.82 4. - [...] was referred from the Emergency Room at [facility] after a recent episode of chest pain. This gentleman is status post a non-ST elevation VT in 2006 with subsequent LAD stenting. He [...] this and was living on [facility]. 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 2. History of an anterior VT. Normalization of his ejection fraction following LAD [...] on filedocumented in this encounter Care Teams Telephonic Nurse Case Manager Relationship Specialty Start Date End Date System, Provider Not In PCP - General Clinic 07/26/13 10/12/13 [facility] [address] [place] [address] PCP - General 10/13/13 04/16/14 Kevin Nelson MD [address] [place] [address] PCP - General 04/17/14 Simon Gudino MD Assigned Heart and Vascular Provider 12/16/19 05/08/20 Ellen Govea PA-C [address] [place] [address] Assigned Heart and Vascular Provider 05/09/20 03/16/21 Franck Alfaro MD Assigned Heart and Vascular Provider 03/17/21 12/27/21 Neetu Soria, CLINICAL VETERINARIAN KNITTED GARMENT FINISHER [address] [place] [address] Assigned Heart and Vascular Provider 12/28/21 04/18/22 Franck Alfaro MD [address] [place] [address] Assigned Heart and Vascular Provider 04/19/22 06/27/22 Neetu Soria, JENNA KNITTED GARMENT FINISHER [address] [place] [address] Assigned Heart and Vascular Provider 06/28/22 01/15/24 Franck Alfaro MD Assigned Heart and Vascular Provider 04/17/24 06/14/24 Neetu Soria, JENNA KNITTED GARMENT FINISHER [address] [place] [address] Assigned Heart and Vascular Provider 06/15/24 09/13/24 Marky Blum MD Assigned Heart and Vascular Provider 09/14/24 documented as of this encounter
--- OUTSIDE RECORDS SUMMARY | 2024-11-28 13:40 | XMS_ITS | Clinical Summary ---
Author Organization [place] Address [address] [facility] [place] [address] Care Team Providers Care Infant Room Teacher Name Role Phone Kevin Nelson MD Primary Care Provider [phone] Marky Blum MD Unavailable Un available Allergies [...] 75 MG tabletIndications :Coronary artery disease involving [place] coronary artery of [place] heart without angina pectoris Take 1 tablet (75 mg) by mouth daily 90 tablet 3 2 Active isosorbide mononitrate (IMDUR) 30 MG 24 hr tabletIndications :MONCADA (dyspnea on exertion) Take 1 tablet (30 mg) by mouth daily 90 tablet 3 2 Active ranolazine (RANEXA) 500 MG 12 hr tabletIndications :Coronary artery disease involving [place] coronary artery of [place] heart with other form of angina pectoris [...] MG EC tabletIndications :Coronary artery disease involving [place] coronary artery of [place] heart with unstable angina pectoris (H) Take 1 tablet (81 mg) by mouth daily. 5 Active losartan (COZAAR) 50 MG tabletIndications :Coronary artery disease involving [place] coronary artery of [place] heart with unstable angina pectoris (H),Primary hypertension Take 1 tablet (50 mg) by mouth 2 times daily. 180 tablet 3 5 Active Active Problems Problem Noted Date Diagnosed Date Acute kidney failure, unspecified 04/24/2024 PAD (peripheral artery disease) 04/18/2022 Peripheral edema 03/07/2021 Abnormal findings on diagnos tic imaging of heart and coronary circulation 07/11/2020 Overview (07/11/2020): Added automatically from request for surgery [id number] Pre-syncope 08/07/2019 Status post coronary angiogram 03/02/2019 MONCADA (dyspnea on exertion) 02/25/2019 Overview (02/25/2019): Added automatically from request for surgery [id number] Unstable angina 11/15/2016 Chest pain 08/08/2015 Coronary artery disease invo lving [place] coronary artery of [place] heart with unstable angina pectoris Overview (08/12/2013): [...] artery disease of n ative artery of [place] heart with stable angina pectoris 07/11/2020 03/07/2021 Overview (07/11/2020): Added automatically from request for surgery [id number] Left subscapular pain 12/25/20132013 Dyspnea on exertion 12/25/2013 12/27/19 14 Encounters Date Type Department Care Team Description 10/18/[address] [place] [address] Marky Blum MD Appointment 09/13/2024 8:45 AM CDT Office Visit [address] [place] [phone] Marky Blum MD Coronary artery disease involving [place] coronary artery of [place] heart with unstable angina pectoris (H) 09/13/2024 Travel from Last 3 Months Immunizations Immunization Administration Dates Next Due Influenza (High Dose) Trival ent,PF (Fluzone) 11/21/2013 Influenza (IIV3) PF 01/17/2015, 3,12/22/2011,2010,12/24/2009,12/11/2008,12/08/2007,1 ,12/24/2005 Pneumo Conj 13-V (2010&after) 04/27/2015 Pneumococcal 23 valent 11/01/2003 TD,PF 7+ ([facility]) 11/06/2005 Tdap (Adult) Unspecified Formulation 08/18/2011 Zoster vaccine, live 12/08/2006 Family History Medical History Relation Comments Heart Disease Brother [place] in 50 + Heart Disease Father [place], and [place] Hypertension Mother Respiratory Mother copd [...] in an abandoned building, in an overnight halfway, or couch-surfing.) Yes 04/21/2024 Are you worried [...] on file Legal Sex Male 4:49 AM NEONATAL SPECIALIST Gender Identity Not on file Sexual Orientation Not on file Last Filed Vital Signs Vital Sign Reading Time Taken Comments Blood Pressure 128/60 09/13/2024 8:27 AM CDT Pulse 86 09/13/2024 8:27 AM CDT Temperature 36.7 C (98.1 F) 04/25/2024 7:41 AM NEONATAL SPECIALIST Respiratory Rate 18 04/25/2024 7:41 AM NEONATAL SPECIALIST Oxygen Saturation 96% 09/13/2024 8:27 AM CDT [...] this topic Medical Devices Implanted Type Area Fashion Merchandiser Device Identifier Shelf Expiration Date Model / Serial / Lot Stent Resolute Praveen De 2.7fr [id number] Ronyx [id number] Implanted:09/2019 at [facility] (Quantity not on file) Stent Drug Eluting (LD) [employer] 01/14/2020 [id number] / / [id number] Stent Coronary Ld Synergy Xd Mr [id number] - [id number] Implanted:Qty: 1 on 04/22/2024 at [facility] Stent Drug Eluting (LD) [employer] 08/18/2025 [id number] / / [id number] Procedures Procedure Name Priority Date/Time Associated Diagnosis Comments BASIC METABOLIC PANEL Routine 06/17/2024 10:01 AM CDT Primary hypertension LIPID REFLEX TO DIRECT LDL PANEL Add-On 04/22/2024 7:13 AM NEONATAL SPECIALIST HEMOGLOBIN A1C Routine 08/07/2019 3:43 PM CDT Near syncope TSH WITH FREE T4 REFLEX Routine 12/25/2013 6:48 PM NEONATAL SPECIALIST Shortness Of Breath from Last 3 Months [...] AM CDT us Neetu E Yang AGUIRREN X RAY EQUIPMENT TESTER LAB - BLOOD ORDERABLES Fin al Result LABORATORY [facility] [address] Lab (1st floor, no room number) [place] [address], [facility] * Lipid panel reflex to direct LDL (04/22/2024 7:13 AM NEONATAL SPECIALIST) Cholesterol 103 <200 mg/dL 04/22/2024 11:51 AM NEONATAL SPECIALIST [facility] Triglycerides 79 <150 mg/dL 04/22/2024 11:51 AM NEONATAL SPECIALIST [facility] Direct Measure HDL 45 >=40 mg/dL 2024 11:51 AM NEONATAL SPECIALIST [facility] LDL Cholesterol Calculated 42 <100 mg/dL 04/22/2024 11:51 AM NEONATAL SPECIALIST [facility] Non HDL Cholesterol 58 <130 mg/dL 04/22/2024 11:51 AM NEONATAL SPECIALIST [facility] Blood STRUCTURE OF RIGHT UPPER LIMB / Unknown Venipuncture / Unknown 04/22/2024 7:13 AM NEONATAL SPECIALIST 04/22/2024 8:01 AM NEONATAL SPECIALIST Narrative [facility] - 04/22/2024 11:51 AM NEONATAL SPECIALIST Cholesterol Desirable: < 200 mg/dL Borderline High: [...] BLOOD ORDERABLES Fi nal Result [facility] [place] [facility] Lab [address] [facility] [place] [address], [facility] * (ABNORMAL) Hemoglobin A1c (08/07/2019 3:43 PM CDT) Hemoglobin A1C 6.2(H) 0 - 5.6 % 08/07/2019 4:24 PM CDT [facility] Comment: Normal <5.7% Prediabetes 5.7-6.4% Diabetes 6.5% or higher - adopted from ADA consensus guidelines. Blood specimen (specimen) 08/07/2019 3:43 PM CDT 08/07/2019 3:44 PM CDT us Dionicio Collins MD LAB - BLOOD ORDERABLES Final Result [facility] [address] [place] [address], [facility] [phone] * TSH with free T4 reflex (12/25/2013 6:48 PM NEONATAL SPECIALIST) TSH 2.88 0.40 - 4.00 mU/L [facility] Comment: Effective 09/21/2013, the reference range for this assay has changed to reflect new instrumentation/methodology. 12/25/2013 6:48 PM NEONATAL SPECIALIST 12/25/2013 6:55 PM NEONATAL SPECIALIST us Bill Tsai MD LAB - BLOOD ORDERAB LES Final Result Performing Organization Address City/[facility]/ZIP Co de Phone Number [facility] [address] [place] [address], [facility] [phone] from Last 3 Months or Most Recently Relevant to Health Maintenance Insurance [employer] MEDICARE [facility] MEDICARE Advance Directives For more information, please contact: [phone] Documents on File Type Date Recorded Patient Drink Mixer Expl anation Advance Directives and Living Will [...] First Alternate Health Care Agent Care Teams Infant Room Teacher Relationship Specialty Start Date End Date Kevin Nelson MD [address] [place] [address] PCP - General 04/17/14 Marky Blum MD Assigned Heart and Vascular Provider 09/14/24
--- OUTSIDE RECORDS SUMMARY | 2024-11-28 13:40 | XMS_ITS ---
Author Organization [place] Address [address] [place] [address] Care Team Providers Care Sulfuric Acid Plant Operator Name Role Phone Kevin [place] MD Primary Care Provider [phone] Marky Blum MD Unavailable Un available Active Problems Problem Noted Date Diagnosed Date Acute kidney failure, unspecified 04/24/2024 PAD (peripheral artery disease) 04/18/2022 Peripheral edema 03/07/2021 Abnormal findings on diagnos tic imaging of heart and coronary circulation 07/11/2020 Overview (07/11/2020): Added automatically from request for surgery [id number] Pre-syncope 08/07/2019 Status post coronary angiogram 03/02/2019 MONCADA (dyspnea on exertion) 02/25/2019 Overview (02/25/2019): Added automatically from request for surgery [id number] Unstable angina 11/15/2016 Chest pain 08/08/2015 Coronary artery disease invo lving stockbridge coronary artery of stockbridge heart with unstable angina pectoris Overview (08/12/2013): [...] artery disease of n ative artery of stockbridge heart with stable angina pectoris 07/11/2020 03/07/2021 Overview (07/11/2020): Added automatically from request for surgery [id number] Left subscapular pain 12/25/20132013 Dyspnea on exertion 12/25/2013 12/27/19 14
--- OUTSIDE RECORDS SUMMARY | 2024-11-28 13:41 | XMS_ITS | Encounter Summary ---
Author Organization [place] Address [address] [facility] [place] [address] Care Team Providers Care Cord Splicer Name Role Phone System, Provider Not In Primary Care Provider Un available [facility], [facility] Primary Care Provider Kevin [place] MD Primary Care Provider Simon Gudino MD Unavailable Unavail able Ellen Govea PA-C Unavailable Franck Alfaro MD Unavailable Unavailab leigh Soria, July E EDUCATIONAL ADVISER FITNESS COORDINATOR Unavailable [phone] Franck Alfaro MD Unavailable Unavailab leigh Soria, July E EDUCATIONAL ADVISER FITNESS COORDINATOR Unavailable [phone] Franck Alfaro MD Unavailable Unavailab leigh Soria, July E EDUCATIONAL ADVISER FITNESS COORDINATOR Unavailable [phone] Marky Blum MD Unavailable Un available Encounter Details Date Type Department Care Team (Late st Contact Info) Description 08/06/2007 Office Visit-[facility] [address] [place] [address] Simon Gudino MD Social History Tobacco Use Types Packs/Day Years Used Date Smoking Tobacco: Never Assessed Sex and Gender Information Value Date Recorded Sex Assigned at Not on file 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 DATE: 08/06/2007 PRATIK MADERA DATE OF : 1940 AGE: [age] years old Referring Physician: ALTHEA CEE Referring Clinic: 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; Sexual Activity - sexually inactive; [...] on filedocumented in this encounter Care Teams Cord Splicer Relationship Specialty Start Date End Date System, Provider Not In PCP - General Clinic 07/26/13 10/12/13 [facility] [address] [place] [address] PCP - General 10/13/13 04/16/14 Kevin [place] MD [address] [place] [address] PCP - General 04/17/14 Simon Gudino MD Assigned Heart and Vascular Provider 12/16/19 05/08/20 Ellen Govea PA-C [address] [place] [address] Assigned Heart and Vascular Provider 05/09/20 03/16/21 Franck Alfaro MD Assigned Heart and Vascular Provider 03/17/21 12/27/21 Neetu Soria, EDUCATIONAL ADVISER FITNESS COORDINATOR [address] [place] [address] Assigned Heart and Vascular Provider 12/28/21 04/18/22 Franck Alfaro MD [address] [place] [address] Assigned Heart and Vascular Provider 04/19/22 06/27/22 Neetu Soria, EDUCATIONAL ADVISER FITNESS COORDINATOR [address] [place] [address] Assigned Heart and Vascular Provider 06/28/22 01/15/24 Franck Alfaro MD Assigned Heart and Vascular Provider 04/17/24 06/14/24 Neetu Soria, EDUCATIONAL ADVISER FITNESS COORDINATOR [address] [place] [address] Assigned Heart and Vascular Provider 06/15/24 09/13/24 Marky Blum MD Assigned Heart and Vascular Provider 09/14/24 documented as of this encounter
--- OUTSIDE RECORDS SUMMARY | 2024-11-28 13:41 | XMS_ITS | Encounter Summary ---
Author Organization [place] Address [address] [facility] [place] [address] Care Team Providers Care Hydro Station Supervisor Name Role Phone System, Provider Not In Primary Care Provider Un available [facility], [facility] Primary Care Provider Kevin [place] MD Primary Care Provider [phone] Simon Gudino MD Unavailable Unavail able Ellen Govea PA-C Unavailable Franck Alfaro MD Unavailable Unavailab leigh Soria, July E SUSTAINABILITY COORDINATOR GAS ANALYST Unavailable [phone] Franck Alfaro MD Unavailable Unavailab leigh Soria, July E SUSTAINABILITY COORDINATOR GAS ANALYST Unavailable [phone] Franck Alfaro MD Unavailable Unavailab leigh Soria, July E SUSTAINABILITY COORDINATOR GAS ANALYST Unavailable [phone] Marky Blum MD Unavailable Un available Encounter Details Date Type Department Care Team (Late st Contact Info) Description 08/16/2009 Office Visit-[facility] [address] [place] [address] Simon Gudino MD Social History Tobacco Use Types Packs/Day Years Used Date Smoking Tobacco: Never Assessed Sex and Gender Information Value Date Recorded Sex Assigned at Not on file 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 DATE: 08/16/2009 FOREST MADERA DATE OF : 1940 AGE: [age] years old Referring Physician: KRYSTLE CARLOS CURRENT DIAGNOSES 1. - Angina Pectoris, 413.9 2. AL-S/P Anterior, 412 3. PTCA, V45.82 4. 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 2. History of anterior AL with subsequent normalization of ejection fraction. He [...] on filedocumented in this encounter Care Teams Hydro Station Supervisor Relationship Specialty Start Date End Date System, Provider Not In PCP - General Clinic 07/26/13 10/12/13 [facility], [facility] [address] [place] [address] PCP - General 10/13/13 04/16/14 Kevin [place] MD [address] [place] [address] PCP - General 04/17/14 Simon Gudino MD Assigned Heart and Vascular Provider 12/16/19 05/08/20 Ellen Govea PA-C [address] [place] [address] Assigned Heart and Vascular Provider 05/09/20 03/16/21 Franck Alfaro MD Assigned Heart and Vascular Provider 03/17/21 12/27/21 Neetu Soria, SUSTAINABILITY COORDINATOR GAS ANALYST [address] [place] [address] Assigned Heart and Vascular Provider 12/28/21 04/18/22 Franck Alfaro MD [address] [place] [address] Assigned Heart and Vascular Provider 04/19/22 06/27/22 Neetu Soria, SUSTAINABILITY COORDINATOR GAS ANALYST [address] [place] [address] Assigned Heart and Vascular Provider 06/28/22 01/15/24 Franck Alfaro MD Assigned Heart and Vascular Provider 04/17/24 06/14/24 Neetu Soria, SUSTAINABILITY COORDINATOR GAS ANALYST [address] [place] [address] Assigned Heart and Vascular Provider 06/15/24 09/13/24 Marky Blum MD Assigned Heart and Vascular Provider 09/14/24 documented as of this encounter
--- OUTSIDE RECORDS SUMMARY | 2024-11-28 13:41 | XMS_ITS | Encounter Summary ---
Author Organization [place] Address [address] [place] [address] Care Team Providers Care Splicer Helper Name Role Phone System, Provider Not In Primary Care Provider Un available [facility], [facility] Primary Care Provider Kevin [place] MD Primary Care Provider [phone] Simon Gudino MD Unavailable Unavail able Ellen Govea PA-C Unavailable Franck Alfaro MD Unavailable Unavailab leigh Soria, July E HOTEL YARDPERSON OXYGEN EQUIPMENT AIDE Unavailable [phone] Franck Alfaro MD Unavailable Unavailab leigh Soria, July E HOTEL YARDPERSON OXYGEN EQUIPMENT AIDE Unavailable [phone] Franck Alfaro MD Unavailable Unavailab leigh Soria, July E HOTEL YARDPERSON OXYGEN EQUIPMENT AIDE Unavailable [phone] Marky Blum MD Unavailable Un available Encounter Details Date Type Department Care Team (Late st Contact Info) Description 01/20/2007 Office Visit-[facility] [address] [place] [address] Unknown, Doctor, Social History Tobacco Use Types Packs/Day Years Used Date Smoking Tobacco: Never Assessed Sex and Gender Information Value Date Recorded Sex Assigned at Not on file 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 - Hyperlipidemia, 272.4 [...] a delightful gentleman who presents to the [facility] today for a follow up visit regarding his recent hospitalization. As you recall, he presented with an acute non-ST segment elevation ME and was found to have a 90% [...] has been doing Cardiac Rehab out at [facility] without any difficulty. He seems to [...] 1. Status post acute non-ST segment elevation ME for which he underwent angioplasty and stenting [...] on filedocumented in this encounter Care Teams Splicer Helper Relationship Specialty Start Date End Date System, Provider Not In PCP - General Clinic 07/26/13 10/12/13 [facility] [address] [place] [address] PCP - General 10/13/13 04/16/14 Kevin [place] MD [address] [place] [address] PCP - General 04/17/14 Simon Gudino MD Assigned Heart and Vascular Provider 12/16/19 05/08/20 Ellen Govea PA-C [address] [place] [address] Assigned Heart and Vascular Provider 05/09/20 03/16/21 Franck Alfaro MD Assigned Heart and Vascular Provider 03/17/21 12/27/21 Neetu Soria, JENNA OXYGEN EQUIPMENT AIDE [address] [place] [address] Assigned Heart and Vascular Provider 12/28/21 04/18/22 Franck Alfaro MD [address] [place] [address] Assigned Heart and Vascular Provider 04/19/22 06/27/22 Neetu Soria, JENNA OXYGEN EQUIPMENT AIDE [address] [place] [id number] Assigned Heart and Vascular Provider 06/28/22 01/15/24 Franck Alfaro MD Assigned Heart and Vascular Provider 04/17/24 06/14/24 Neetu Soria, HOTEL YARDPERSON [facility] [address] [place] [address] Assigned Heart and Vascular Provider 06/15/24 09/13/24 Marky Blum MD Assigned Heart and Vascular Provider 09/14/24 documented as of this encounter
--- OUTSIDE RECORDS SUMMARY | 2024-11-28 13:41 | XMS_ITS | Encounter Summary ---
Author Organization [place] Address [address] [facility] [place] [address] Care Team Providers Care Clinic Supervisor Name Role Phone System, Provider Not In Primary Care Provider Un available [facility], [facility] Primary Care Provider Kevin [place] MD Primary Care Provider Simon Gudino MD Unavailable Unavail able Ellen Govea PA-C Unavailable [phone] Franck Alfaro MD Unavailable Unavailab leigh Soria, July E BUCKLE WIRE INSERTER BACON SLICER Unavailable [phone] Franck Alfaro MD Unavailable Unavailab leigh Soria, July E BUCKLE WIRE INSERTER BACON SLICER Unavailable [phone] Franck Alfaro MD Unavailable Unavailab leigh Soria, July E BUCKLE WIRE INSERTER BACON SLICER Unavailable [phone] Marky Blum MD Unavailable Un available Encounter Details Date Type Department Care Team (Late st Contact Info) Description 04/28/2007 Office Visit-[facility] [address] [place] [address] Simon Gudino MD Social History Tobacco Use Types Packs/Day Years Used Date Smoking Tobacco: Never Assessed Sex and Gender Information Value Date Recorded Sex Assigned at Not on file 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 DATE: 04/28/2007 FOREST MADERA DATE OF : 1940 AGE: [age] years old Referring Physician: KRYSTLE LEROY Referring Clinic: [facility] CURRENT DIAGNOSES 1. 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 INTEGUMENTARY rosacea EYES wears eye glasses/contact lenses, cataracts EARS, NOSE, THROAT, MOUTH denies any hearing loss, epistaxis, hoarseness or difficulty speaking. RESPIRATORY productive cough, dyspnea, snoring, [facility] last week with influenza type [...] on filedocumented in this encounter Care Teams Clinic Supervisor Relationship Specialty Start Date End Date System, Provider Not In PCP - General Clinic 07/26/13 10/12/13 [facility] [address] [place], [place] [id number] PCP - General 10/13/13 04/16/14 Kevin [place] MD [address] [place] [address] PCP - General 04/17/14 Simon Gudino MD Assigned Heart and Vascular Provider 12/16/19 05/08/20 Ellen Govea PA-C [address] [place] [address] Assigned Heart and Vascular Provider 05/09/20 03/16/21 Franck Alfaro MD Assigned Heart and Vascular Provider 03/17/21 12/27/21 Neetu Soria, BUCKLE WIRE INSERTER BACON SLICER [address] [place] [address] Assigned Heart and Vascular Provider 12/28/21 04/18/22 Franck Alfaro MD [address] [place] [address] Assigned Heart and Vascular Provider 04/19/22 06/27/22 Neetu Soria, BUCKLE WIRE INSERTER BACON SLICER [address] [place] [address] Assigned Heart and Vascular Provider 06/28/22 01/15/24 Franck Alfaro MD Assigned Heart and Vascular Provider 04/17/24 06/14/24 Neetu Soria, BUCKLE WIRE INSERTER BACON SLICER [address] [place] [address] Assigned Heart and Vascular Provider 06/15/24 09/13/24 Marky Blum MD Assigned Heart and Vascular Provider 09/14/24 documented as of this encounter
--- OUTSIDE RECORDS SUMMARY | 2024-11-28 13:41 | XMS_ITS | Encounter Summary ---
Author Organization [place] Address [address] [facility] [place] [place] [address] Care Team Providers Care Yacht Captain Name Role Phone System, Provider Not In Primary Care Provider Un available [facility], [facility] Primary Care Provider Amari [place] MD Primary Care Provider Simon Gudino MD Unavailable Unavail able Ellen Govea PA-C Unavailable Franck Alfaro MD Unavailable Unavailab leigh Soria, July E CUTTING AND CREASING PRESS OPERATOR DUST COLLECTOR ATTENDANT Unavailable [phone] Franck Alfaro MD Unavailable Unavailab leigh Soria, July E CUTTING AND CREASING PRESS OPERATOR DUST COLLECTOR ATTENDANT Unavailable [phone] Franck Alfaro MD Unavailable Unavailab leigh Soria, July E CUTTING AND CREASING PRESS OPERATOR DUST COLLECTOR ATTENDANT Unavailable [phone] Marky Blum MD Unavailable Un available Encounter Details Date Type Department Care Team (Late st Contact Info) Description 03/10/2013 Office Visit-[facility] [address] [place] [address] Simon Gudino MD Social History Tobacco Use Types Packs/Day Years Used Date Smoking Tobacco: Never Assessed Sex and Gender Information Value Date Recorded Sex Assigned at Not on file 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 DATE: 03/10/2013 [place] DATE OF : 1940 AGE: [age] years old Referring Physician: AMARI NELSON Referring Clinic: [facility] CURRENT DIAGNOSES 1. 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; Sexual Activity- sexually inactive; Residence [...] on filedocumented in this encounter Care Teams Yacht Captain Relationship Specialty Start Date End Date System, Provider Not In PCP - General Clinic 07/26/13 10/12/13 [facility] [address] [place] [address] PCP - General 10/13/13 04/16/14 Amari [place] MD [address] [place] [address] PCP - General 04/17/14 Simon Gudino MD Assigned Heart and Vascular Provider 12/16/19 05/08/20 Ellen Govea PA-C [address] [place] [address] Assigned Heart and Vascular Provider 05/09/20 03/16/21 Franck Alfaro MD Assigned Heart and Vascular Provider 03/17/21 12/27/21 Neetu Soria, CUTTING AND CREASING PRESS OPERATOR DUST COLLECTOR ATTENDANT [address] [place] [address] Assigned Heart and Vascular Provider 12/28/21 04/18/22 Franck Alfaro MD [address] [place] [address] Assigned Heart and Vascular Provider 04/19/22 06/27/22 Neetu Soria, CUTTING AND CREASING PRESS OPERATOR DUST COLLECTOR ATTENDANT [address] [place] [address] Assigned Heart and Vascular Provider 06/28/22 01/15/24 Franck Alfaro MD Assigned Heart and Vascular Provider 04/17/24 06/14/24 Neetu Soria, CUTTING AND CREASING PRESS OPERATOR DUST COLLECTOR ATTENDANT [address] [place], [place] [address] Assigned Heart and Vascular Provider 06/15/24 09/13/24 Marky Blum MD Assigned Heart and Vascular Provider 09/14/24 documented as of this encounter
--- OUTSIDE RECORDS SUMMARY | 2024-11-28 13:41 | XMS_ITS | Encounter Summary ---
Author Organization [place] Address [address] [facility] [place] [address] Care Team Providers Care Red Mud Thickener Operator Name Role Phone Kevin [place] MD Primary Care Provider [phone] Franck Alfaro MD Unavailable Unavailab leigh Soria, JulyN ADVERTISING ACCOUNT REPRESENTATIVE Unavailable [phone] Franck Alfaro MD Unavailable Unavailab leigh Soria July E TRAFFIC INCIDENT MANAGEMENT MANAGER ADVERTISING ACCOUNT REPRESENTATIVE Unavailable [phone] Marky Blum MD Unavailable Un available Encounter Details Date Type Department Care Team (Late st Contact Info) Description 05/27/2022 External Order Results [facility] [address] [place] [address] Outside, Provider Social History Tobacco Use Types [...] on file 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 Gender Identity Not on file Sexual Orientation [...] Total Score: 10 04/18/ 023 12:46 PM TURRET LATHE TENDER documented as of this encounter Care Teams Red Mud Thickener Operator Relationship Specialty Start Date End Date Kevin [place] MD [address] [place] [address] PCP - General 04/17/14 Franck Alfaro MD [address] [place] [address] [address] Assigned Heart and Vascular Provider 04/19/22 06/27/22 Neetu Soria, TRAFFIC INCIDENT MANAGEMENT MANAGER ADVERTISING ACCOUNT REPRESENTATIVE [address] [place] [phone] Assigned Heart and Vascular Provider 06/28/22 01/15/24 Franck Alfaro MD Assigned Heart and Vascular Provider 04/17/24 06/14/24 Neetu Soria, TRAFFIC INCIDENT MANAGEMENT MANAGER ADVERTISING ACCOUNT REPRESENTATIVE [address] [place] [id number] Assigned Heart and Vascular Provider 06/15/24 09/13/24 Marky Blum MD Assigned Heart and Vascular Provider 09/14/24 documented as of this encounter
--- OUTSIDE RECORDS SUMMARY | 2024-11-28 13:41 | XMS_ITS | Encounter Summary ---
Author Organization [place] Address [address] [facility] [place] [address] Care Team Providers Care Data Processing Specialist Name Role Phone Kevin [place] MD Primary Care Provider [phone] Franck Alfaro MD Unavailable Unavailab leigh Soria, Neetu E FEDERAL MEDIATION COMMISSIONER MANAGER TESTING Unavailable [phone] Marky Blum MD Unavailable Un available Reason for Visit * Reason Onset Date Comments Symptoms 03/31/2024 Chest pain and S OB Encounter Details Date Type Department Care Team (Late st Contact Info) Description 03/31/2024 Telephone [facility] [address] [place] [address] Franck Alfaro MD Symptoms (Chest [...] on file Legal Sex Male 4:49 AM LEAF SIZE PICKER Gender Identity Not on file Sexual Orientation Not on file documented as of this encounter Miscellaneous Notes * Telephone Encounter - Stein, Victorina - 03/31/2024 8:04 AM CST Caller reporting the following red-flag symptom(s): Chest pain and SOB Per the system red-flag symptom policy, patient was instructed to: speak with a Registered Nurse Action: Patient warm transferred to a Registered Nurse SIZE PICKER documented in this encounter Plan of Treatment Not on file documented as of this encounter Visit Diagnoses Not on filedocumented in this encounter Additional Health Concerns Assessment Noted Time PHQ-9 Depression Total Score: 10 023 12:46 PM LEAF SIZE PICKER documented as of this encounter Care Teams Data Processing Specialist Relationship Specialty Start Date End Date Kevin [place] MD [address] [place] [address] PCP - General 04/17/14 Franck Alfaro MD Assigned Heart and Vascular Provider 04/17/24 06/14/24 Neetu Soria, JENNA MANAGER TESTING [address] [place] [address] Assigned Heart and Vascular Provider 06/15/24 09/13/24 Marky Blum MD Assigned Heart and Vascular Provider 09/14/24 documented as of this encounter
--- OUTSIDE RECORDS SUMMARY | 2024-11-28 13:41 | XMS_ITS | Encounter Summary ---
Author Organization [place] Address [address] [place] [address] Care Team Providers Care Final Armature Tester Name Role Phone Kevin Nelson MD Primary Care Provider [phone] Franck Alfaro MD Unavailable Unavailab leigh Soria, JulyN COMPLAINT EVALUATION SUPERVISOR Unavailable [phone] Franck Alfaro MD Unavailable Unavailab leigh Soria July E EPITAXIAL REACTOR TECHNICIAN COMPLAINT EVALUATION SUPERVISOR Unavailable [phone] Marky Blum MD Unavailable Un available Encounter Details Date Type Department Care Team (Late st Contact Info) Description 06/12/2022 External Order Results 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 us Franck Alfaro MD LAB - BLOOD ORDERABLES Amando neha Result - Final BREEZE PFT NON-INTERFACED (ONBASE SCANS) documented in this encounter Visit Diagnoses Diagnosis Coronary artery disease of [place] artery of [place] heart with stable angina pectoris documented in this encounter Additional Health Concerns Assessment Noted Time PHQ-9 Depression Total Score: 10 023 12:46 PM UPHOLSTERY TECHNICIAN documented as of this encounter Care Teams Final Armature Tester Relationship Specialty Start Date End Date Kevin Nelson MD [address] [place] [address] PCP - General 04/17/14 Franck Alfaro MD [address] [facility] [address] Assigned Heart and Vascular Provider 04/19/22 06/27/22 Neetu Soria, EPITAXIAL REACTOR TECHNICIAN COMPLAINT EVALUATION SUPERVISOR [address] [place] [address] Assigned Heart and Vascular Provider 06/28/22 01/15/24 Franck Alfaro MD Assigned Heart and Vascular Provider 04/17/24 06/14/24 Neetu Soria, EPITAXIAL REACTOR TECHNICIAN COMPLAINT EVALUATION SUPERVISOR [address] [place] [address] Assigned Heart and Vascular Provider 06/15/24 09/13/24 Marky Blum MD Assigned Heart and Vascular Provider 09/14/24 documented as of this encounter
--- OUTSIDE RECORDS SUMMARY | 2024-11-28 13:41 | XMS_ITS | Clinical Summary ---
Author Organization [facility] Address [address] [place] [address] Care Team Providers Care Clinical Engineer Name Role Phone Sebastian Rene Unavailable [phone] Iris Manzano Unavailable Unavailable Kevin Nelson MD Primary Care Provider [phone] Allergies Active Allergy Reactions Criticality Noted Date [...] type, unspecified whether angina present, unspecified whether robinson or transplanted heart TAKE 1 TABLET(75 MG) [...] type, unspecified whether angina present, unspecified whether robinson or transplanted heart Take 1 Tablet (30 [...] type, unspecified whether angina present, unspecified whether robinson or transplanted heart Take 1 Tablet (500 mg) by mouth two times daily. 180 Tablet 3 4 Active rosuvastatin (CRESTOR) 20 mg tabletIndications :Coronary artery disease, unspecified vessel or lesion type, unspecified whether angina present, unspecified whether robinson or transplanted heart Take 1 Tablet (20 [...] type, unspecified whether angina present, unspecified whether robinson or transplanted heart DISSOLVE 1 TABLET UNDER [...] scheduled 04/08/22 with CONRADO Guillen 03/25/22: right hoahaoism, nBCC, Mohs done 04/25/[address] 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 02/11/2022 Peripheral vascular disease with claudication Popliteal artery occlusion, right 09/02/2021 S/P angiogram of extremity 09/02/2021 Overview (09/02/2021): RLE angio with recanalization of GARNETTER popliteal artery, atherectomy, and DCB MONCADA (dyspnea [...] Primary Health Care Agent: Yamilex Madera Relationship: [phone] Cell Secondary Health Care Agent: Amanda Del Rio Relationship: daughter [phone] work Patient has Advance Care Plan Documents [...] Encounters Date Type Department Care Team Description 11/24/2024 Lab Requisition [facility] [phone] Neil Graves MD 11/22/2024 Lab Requisition [facility] [address] [place] [address] Neil Graves MD 11/18/2024 Lab Requisition [facility] [phone] Neil Graves MD 11/14/2024 Orders Only [facility] Scanner 1 scan: (1-Ord) [facility], HIP RT 1V, 11/14/2024 11/13/2024 Orders Only [facility] HIM SERVICES Scanner 1 scan: (1-Ord) [facility], HIP RT MIN 2V, 11/13/2024 11/13/2024 Orders Only [facility] Scanner 1 scan: (1-Ord) [facility], XR CHEST 1V, 11/13/2024 09/09/2024 Telephone [facility] [address] [place] [address] Kevin Nelson MD Results 09/05/2024 7:25 AM CDT Office Visit [facility] [address] [place] [address] Kevin Nelson MD Diabetes 09/05/2024 Travel from Last 3 Months Immunizations Immunization Administration Dates Next Due Amb Influenza, Inact (High-d ose) (Flu Clinic Only) 01/17/2015 COVID-19 vaccine ([employer] 30mcg/0.3mL) MD NATEV 12/13/2020,04/21/2020,03/31/2020 Influenza RIV4 (Age 18+ Year s) [...] Name Comments Heart Disease Brother 1 Ricardo NM @ 54 yo; 2 more stents recently 03/2012 Diabetes Brother 3 Heart Disease Father Hans Hypertension Father Hans Stroke Father Hans Other Mother Denesal COPD Heart Disease Sister 1 Feb NM Anesthesia Problem No Family History Blood Disease No Family History Relation Name Status Comments Brother 1 Ricardo Alive Brother 2 Bill Alive Brother 3 Father Hans (Age 72) NM Mother Denesal (Age 89) Sister 1 Riaz [...] on file 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 Gender Identity Not on file Sexual [...] CDT Respiratory Rate 16 04/02/2022 1:37 PM DRIVER EDUCATION INSTRUCTOR Oxygen Saturation 99% 09/05/2024 7:25 AM CDT Inhaled Oxygen Concentration - - Weight 94 kg (207 lb 3.2 oz) 09/05/2024 7:25 AM CDT Height 180.5 cm (5' 11.06) 06/06/2024 7:45 AM C DT Body Mass Index 28.85 06/06/2024 7:45 AM CDT Plan of Treatment Upcoming Encounters Date Type Department Care Team (Late st Contact Info) Description 12/09/2024 7:30 AM CDT Office Visit [facility] [address] [facility] [address] Kevin Nelson MD [address] [facility] [address] 12/19/2024 2:15 PM CDT Office Visit [facility] [address] [place] [address] Kevin Nelson MD [address] [place] [address] Health Maintenance Due Date Last Done Comments RSV vaccine for adults or (1 - 1-dose 75+ series) 2013 COVID-19 vaccine series (2024- season) 2024 12/13/2020, 04/21/2020, 03/31/2020 Influenza Vaccine [...] follow prescribed diet-diabetic Diet Yes Tiffanie Rondon, INTERVIEWING CLERK - Patient checks glucose as directed and logs in log book Diet Yes Tiffanie Rondon RN DIABETES - HgbA1C goal less than 7 Result Component No Tiffanie Rondon RN Procedures Procedure Name Priority Date/Time Associated Diagnosis Comments RED CELL MORPHOLOGY Routine 11/22/2024 7 :58 AM CDT Essential (primary) hypertension Anemia, unspecified PLATELET ESTIMATE Routine 11/22/2024 7:5 8 AM CDT Essential (primary) hypertension Anemia, unspecified MANUAL DIFFERENTIAL Routine 11/22/2024 7 :58 AM CDT Essential (primary) hypertension Anemia, unspecified CBC WITH AUTO DIFFERENTIAL Routine 11/22/2024 7:58 AM CDT Essential (primary) hypertension Anemia, unspecified CBC WITH AUTO DIFFERENTIAL Routine 11/22/2024 7:58 AM CDT Essential (primary) hypertension Anemia, unspecified BASIC METABOLIC PANEL Routine 11/22/2024 7:58 AM CDT Essential (primary) hypertension Anemia, unspecified SCAN-RADIOLOGY REPORT 11/14/2024 12:00 AM CDT SCAN-RADIOLOGY REPORT 11/13/2024 12:00 AM CDT SCAN-RADIOLOGY REPORT 11/13/2024 12:00 AM CDT HEMOGLOBIN A1C MONITORING (POCT) Routine 09/05/2024 7:50 AM CDT Type 2 diabetes mellitus with diabetic polyneuropathy, without long-term current use of insulin (HC) BASIC METABOLIC PANEL Routine 09/05/2024 7:15 AM CDT Stage 3a chronic kidney disease (HC) CBC W PLT NO DIFF Routine 09/05/2024 7:1 5 AM CDT Iron deficiency anemia, unspecified iron deficiency anemia type from Last 3 Months Results * (ABNORMAL) CBC WITH AUTO DIFFERENTIAL (11/22/2024 7:58 AM CDT) WHITE BLOOD COUNT 10.9 4.5 - 11.0 thou/cu mm 11/22/2024 12:12 PM T [facility] RED BLOOD COUNT 3.63(L) 4.30 - 5.90 mil/cu mm 11/22/2024 12:12 PM T [facility] HEMOGLOBIN 11.0(L) 13.5 - 17.5 g/dL 11/22/2024 12:12 PM T [facility] HEMATOCRIT 32.4(L) 37.0 - 53.0 % 11/22/2024 12:12 PM T [facility] MCV 89 80 - 100 fL 11/22/2024 12:12 PM T [facility] MCH 30.3 26.0 - 34.0 pg 11/22/2024 12:[address] [facility] MCHC 34.0 32.0 - 36.0 g/dL 11/22/2024 12:[address] [facility] RDW 13.3 11.5 - 15.5 % 11/22/2024 12:[address] [facility] PLATELET COUNT 272 140 - 440 thou/cu mm 11/22/2024 12:12 PM T [facility] MPV 8.7 6.5 - 11.0 fL 11/22/2024 12:[address] [facility] Blood BLOOD SPECIMEN / Unknown Venipuncture / Unknown 11/22/2024 7:58 AM CDT 11/22/2024 8:47 AM CDT us Neil Graves MD HEMATOLOGY Final Result [facility] [address] [place] [address] * RED CELL MORPHOLOGY (11/22/2024 7:58 AM CDT) Pathologist [facility] RBC COMMENT RBC morphology appears normal RBC morphology appears normal, RBC morphology within normal limits for newborns. 11/22/2024 12:12 PM CDT [facility] Blood BLOOD SPECIMEN / Unknown Venipuncture / Unknown 11/22/2024 7:58 AM CDT 11/22/2024 8:47 AM CDT Neil Graves MD HEMATOLOGY Final Result Performing Organization Address City/[facility]/ZIP Co de Phone Number [facility] [address] [place] [address] * PLATELET ESTIMATE (11/22/2024 7:58 AM CDT) PLATELET ESTIMATE Adequate Adequate, No estimate 11/22/2024 12:12 PM CDT [facility] Blood BLOOD SPECIMEN / Unknown Venipuncture / Unknown 11/22/2024 7:58 AM CDT 11/22/2024 8:47 AM CDT Neil Graves MD HEMATOLOGY Final Result [facility] [address] [place] [address] * (ABNORMAL) MANUAL DIFFERENTIAL (11/22/2024 7:58 AM CDT) % NEUTROPHILS 75.0 % 11/22/2024 12:12 PM T [facility] % LYMPHOCYTES 16.0 % 11/22/2024 12:12 PM T [facility] % MONOCYTES 7.0 % 11/22/2024 12:12 PM T [facility] % EOSINOPHILS 2.0 % 11/22/2024 12:12 PM T [facility] % BASOPHILS 0.0 % 11/22/2024 12:12 PM T [facility] NEUTROPHILS ABSOLUTE 8.2(H) 1.7 - 7.0 thou/cu mm 11/22/2024 12:12 PM T [facility] LYMPHOCYTES ABSOLUTE 1.7 0.9 - 2.9 thou/cu mm 11/22/2024 12:[address] [facility] MONOCYTES ABSOLUTE 0.8 <0.9 thou/cu mm 11/22/2024 12:[address] [facility] EOSINOPHILS ABSOLUTE 0.2 <0.5 thou/cu mm 11/22/2024 12:[address] [facility] BASOPHILS ABSOLUTE 0.0 <0.3 thou/cu mm 11/22/2024 12:[address] [facility] Blood BLOOD SPECIMEN / Unknown Venipuncture / Unknown 11/22/2024 7:58 AM CDT 11/22/2024 8:47 AM CDT us Neil Graves MD HEMATOLOGY Final Result [facility] [address] [place] [address] * (ABNORMAL) BASIC METABOLIC PANEL (11/22/2024 7:58 AM CDT) Only the most recent of2 resultswithin the time period is included. SODIUM 133(L) 136 - 145 mmol/L 11/22/2024 10:[address] [facility] POTASSIUM 3.8 3.5 - 5.1 mmol/L 11/22/2024 10:[address] [facility] CHLORIDE 97(L) 98 - 107 mmol/L 11/22/2024 10:[address] [facility] CO2,TOTAL 23 22 - 29 mmol/L 11/22/2024 10:[address] [facility] ANION GAP 13 5 - 18 11/22/2024 10:[address] [facility] GLUCOSE 245(H) 70 - 99 mg/dL 11/22/2024 10:[address] [facility] CALCIUM 8.8 8.8 - 10.4 mg/dL 11/22/2024 10:[address] [facility] Comment: Reference ranges for this test were updated on 12/29/2023 to reflect our healthy population more accurately. Reference range changes are not retroactively applied to results, but previous results using the same methodology can be interpreted in the context of the new reference range. BUN 13 8 - 23 mg/dL 11/22/2024 10:19 AM CDT [facility] CREATININE 0.87 0.70 - 1.20 mg/dL 11/22/2024 10:19 AM CDT [facility] BUN/CREAT RATIO 15 10 - 20 5 10:19 AM CDT [facility] eGFR 84(L) >90 mL/min/1. 73m2 11/22/2024 10:19 AM CDT [facility] Comment:As of 2021, eG FR is calculated by the CKD-EPI creatinine equation without race adjustment. eGFR can be influenced by muscle mass, exercise, and diet. The reported eGFR is an estimation only and is only applicable if the renal function is stable. Blood BLOOD SPECIMEN / Unknown Venipuncture / Unknown 11/22/2024 7:58 AM CDT 11/22/2024 8:47 AM CDT us Neil Graves MD CHEMISTRY Final Result [facility] [address] [place] [address] * SCAN-RADIOLOGY REPORT (11/14/2024 12:00 AM CDT) Only the most recent of3 resultswithin the time period is included. Anatomical Region Laterality Modality Other us Scanner OTHER Final Result * (ABNORMAL) POCT Hemoglobin A1C Monitoring (09/05/2024 7:50 AM CDT) POC HEMOGLOBIN A1C 7.5(H) <6.0 % OF TOTAL HGB [facility] Comment: Any point of care results exhibiting inconsistency with the patient's clinical status should be repeated using a different testing method. Blood BLOOD SPECIMEN / Unknown 09/05/2024 7:50 AM CDT 09/05/2024 7:50 AM CDT us Kevin Nelson MD CHEMISTRY Final Resu lt [facility] [address] [place] [address], [place] [phone] [facility] [address] [place] [address] * (ABNORMAL) CBC W PLT NO DIFF [...] Kevin Nelson MD HEMATOLOGY Final Resu lt [facility] [address] [address], [place] [phone] [facility] [address] [place] [address] from Last 3 Months Insurance MEDICARE PART A HB ONLY MEDICARE PART B HB ONLY [facility] MEDICARE ADVANTAGE MR Advance Directives Documents on File Type Date Recorded Patient Machine [facility] Healthcare Directive 2018 9:53 AM HEA LTHCARE DIRECTIVE, [facility] Healthcare Directive 06/18/2011 11:13 AM Care Teams Clinical Engineer Relationship Specialty Start Date End Date Kevin Nelson MD [address] [place] [address] PCP - General Family Practice 01/03/13 Sebastian Rene [address] [place] [address] Clinical Staff Anesthesiologist 04/19/12 Iris Manzano [address] [place] [address] [facility] 04/19/12
--- OUTSIDE RECORDS SUMMARY | 2024-11-28 13:41 | XMS_ITS | Encounter Summary ---
Author Organization [place] Address [address] [facility] [place] [address] Care Team Providers Care Biomass Power Plant Manager Name Role Phone System, Provider Not In Primary Care Provider Un available [facility] Primary Care Provider Kevin Nelson MD Primary Care Provider [phone] Simon Gudino MD Unavailable Unavail able Ellen Govea PA-C Unavailable Franck Alfaro MD Unavailable Unavailab leigh Soria, July E JACQUARD PLATE MAKER SUBSTATION DESIGN DRAFTSPERSON Unavailable [phone] Franck Alfaro MD Unavailable Unavailab leigh Soria, July E JACQUARD PLATE MAKER SUBSTATION DESIGN DRAFTSPERSON Unavailable [phone] Franck Alfaro MD Unavailable Unavailab leigh Soria, July E JACQUARD PLATE MAKER SUBSTATION DESIGN DRAFTSPERSON Unavailable [phone] Marky Blum MD Unavailable Un available Encounter Details Date Type Department Care Team (Late st Contact Info) Description 07/25/2008 Office Visit-[facility] [address] [place] [address] Simon Gudino MD Social History Tobacco Use Types Packs/Day Years Used Date Smoking Tobacco: Never Assessed Sex and Gender Information Value Date Recorded Sex Assigned at Not on file 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 DATE: 07/25/2008 [facility] DATE OF : 1940 AGE: [age] years old Referring Physician: KRYSTLE LEROY [facility] CURRENT DIAGNOSES 1. - CAD, 414.00 2. PTCA, V45.82 3. DE-S/P Anterior, 412 4. - Hyperlipidemia, 272.4 5. [...] the chest pain he had with his DE and it resolves with rest. 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 [address] [place] [address] PCP - General 10/13/13 04/16/14 Kevin Nelson MD [address] [place] [address] PCP - General 04/17/14 Simon Gudino MD Assigned Heart and Vascular Provider 12/16/19 05/08/20 Ellen Govea PA-C [address] [place] [address] Assigned Heart and Vascular Provider 05/09/20 03/16/21 Franck Alfaro MD Assigned Heart and Vascular Provider 03/17/21 12/27/21 Neetu Soria, JACQUARD PLATE MAKER SUBSTATION DESIGN DRAFTSPERSON [address] [place] [address] Assigned Heart and Vascular Provider 12/28/21 04/18/22 Franck Alfaro MD [address] [place] [address] Assigned Heart and Vascular Provider 04/19/22 06/27/22 Neetu Soria, JENNA SUBSTATION DESIGN DRAFTSPERSON [address] [place] [address] Assigned Heart and Vascular Provider 06/28/22 01/15/24 Franck Alfaro MD Assigned Heart and Vascular Provider 04/17/24 06/14/24 Neetu Soria APRN [facility] [address] [place] [address] Assigned Heart and Vascular Provider 06/15/24 09/13/24 Marky Blum MD Assigned Heart and Vascular Provider 09/14/24 documented as of this encounter
--- OUTSIDE RECORDS SUMMARY | 2024-11-28 13:41 | XMS_ITS | Encounter Summary ---
Author Organization [place] Address [address] [place] [address] Care Team Providers Care Fund Controller Name Role Phone System, Provider Not In Primary Care Provider Un available [facility] Primary Care Provider Amari Nelson MD Primary Care Provider Simon Gudino MD Unavailable Unavail able Ellen Govea PA-C Unavailable Franck Alfaro MD Unavailable Unavailab leigh Soria, July E EQUIPMENT PLANNER SPEECH CORRECTION CONSULTANT Unavailable [phone] Franck Alfaro MD Unavailable Unavailab leigh Soria, July E EQUIPMENT PLANNER SPEECH CORRECTION CONSULTANT Unavailable [phone] Franck Alfaro MD Unavailable Unavailab leigh Soria, July E EQUIPMENT PLANNER SPEECH CORRECTION CONSULTANT Unavailable [phone] Marky Blum MD Unavailable Un available Encounter Details Date Type Department Care Team (Late st Contact Info) Description 06/27/2013 Office Visit-[facility] [address] [place] [address] Unknown, Doctor, Social History Tobacco Use Types Packs/Day Years Used Date Smoking Tobacco: Never Assessed Sex and Gender Information Value Date Recorded Sex Assigned at Not on file 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 - CAD, 414.00 2. - Hyperlipidemia, 272.4 3. - Hypertension, benign, 401.1 4. PTCA, V45.82 5. GA-S/P Anterior, 412 6. - Angina Pectoris, 413.9 [...] delightful 72-year-old gentleman who presents to the 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 Known coronary [...] on filedocumented in this encounter Care Teams Fund Controller Relationship Specialty Start Date End Date System, Provider Not In PCP - General Clinic 07/26/13 10/12/13 [facility] [address] [place] [address] PCP - General 10/13/13 04/16/14 Amari Nelson MD [address] [place] [address] PCP - General 04/17/14 Simon Gudino MD Assigned Heart and Vascular Provider 12/16/19 05/08/20 Ellen Govea PA-C [address] [place] [address] Assigned Heart and Vascular Provider 05/09/20 03/16/21 Franck Alfaro MD Assigned Heart and Vascular Provider 03/17/21 12/27/21 Neetu Soria, EQUIPMENT PLANNER SPEECH CORRECTION CONSULTANT [address] [place] [address] Assigned Heart and Vascular Provider 12/28/21 04/18/22 Franck Alfaro MD [address] [place] [address] Assigned Heart and Vascular Provider 04/19/22 06/27/22 Neetu Soria, EQUIPMENT PLANNER SPEECH CORRECTION CONSULTANT [address] [place] [address] Assigned Heart and Vascular Provider 06/28/22 01/15/24 Franck Alfaro MD Assigned Heart and Vascular Provider 04/17/24 06/14/24 Neetu Soria, EQUIPMENT PLANNER [facility] [address] [place] [address] Assigned Heart and Vascular Provider 06/15/24 09/13/24 Marky Blum MD Assigned Heart and Vascular Provider 09/14/24 documented as of this encounter
--- OUTSIDE RECORDS SUMMARY | 2024-11-28 13:41 | XMS_ITS | Encounter Summary ---
Author Organization [place] Address [address] [facility] [place] [address] Care Team Providers Care Mfg Assoc Name Role Phone System, Provider Not In Primary Care Provider Un available [facility], [facility] Primary Care Provider Kevin Nelson MD Primary Care Provider Simon Gudino MD Unavailable Unavail able Ellen Govea PA-C Unavailable Franck Alfaro MD Unavailable Unavailab leigh Soria, July E MANAGER OF SALES CARGO WORKER Unavailable [phone] Franck Alfaro MD Unavailable Unavailab leigh Soria, July E MANAGER OF SALES CARGO WORKER Unavailable [phone] Franck Alfaro MD Unavailable Unavailab leigh Soria, July E MANAGER OF SALES CARGO WORKER Unavailable [phone] Marky Blum MD Unavailable Un available Encounter Details Date Type Department Care Team (Late st Contact Info) Description 12/21/2009 Office Visit-[facility] [address] [place] [address] Simon Gudino MD Social History Tobacco Use Types Packs/Day Years Used Date Smoking Tobacco: Never Assessed Sex and Gender Information Value Date Recorded Sex Assigned at Not on file Legal Sex Male 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 I will then anticipate reporting through [employer] (formerly [employer]). 2.Coronary artery disease. He has done well [...] on filedocumented in this encounter Care Teams Mfg Assoc Relationship Specialty Start Date End Date System, Provider Not In PCP - General Clinic 07/26/13 10/12/13 [facility], [address] [address] PCP - General 10/13/13 04/16/14 Kevin Nelson MD [address] [place] [address] PCP - General 04/17/14 Simon Gudino MD Assigned Heart and Vascular Provider 12/16/19 05/08/20 Ellen Govea PA-C [address] [place] [address] Assigned Heart and Vascular Provider 05/09/20 03/16/21 Franck Alfaro MD Assigned Heart and Vascular Provider 03/17/21 12/27/21 Neetu Soria, JENNA CARGO WORKER [address] [place] [address] Assigned Heart and Vascular Provider 12/28/21 04/18/22 Franck Alfaro MD [address] [place] [address] Assigned Heart and Vascular Provider 04/19/22 06/27/22 Neetu Soria, JENNA CARGO WORKER [address] [place] [address] Assigned Heart and Vascular Provider 06/28/22 01/15/24 Franck Alfaro MD Assigned Heart and Vascular Provider 04/17/24 06/14/24 Neetu Soria, JENNA CARGO WORKER [address] [place] [address] Assigned Heart and Vascular Provider 06/15/24 09/13/24 Marky Blum MD Assigned Heart and Vascular Provider 09/14/24 documented as of this encounter
--- OUTSIDE RECORDS SUMMARY | 2024-11-28 13:41 | XMS_ITS | Encounter Summary ---
Author Organization [place] Address [address] [place] [address] Care Team Providers Care Rn Long Term Care Name Role Phone System, Provider Not In Primary Care Provider Un available [facility], [facility] Primary Care Provider Amari Nelson MD Primary Care Provider [phone] Simon Gudino MD Unavailable Unavail able Ellen Govea PA-C Unavailable Franck Alfaro MD Unavailable Unavailab leigh Soria, July E ENTERPRISE ENGINEER ROLLER HELPER Unavailable [phone] Franck Alfaro MD Unavailable Unavailab leigh Soria, July E ENTERPRISE ENGINEER ROLLER HELPER Unavailable [phone] Franck Alfaro MD Unavailable Unavailab leigh Soria, July E ENTERPRISE ENGINEER ROLLER HELPER Unavailable [phone] Marky Blum MD Unavailable Un available Encounter Details Date Type Department Care Team (Late st Contact Info) Description 04/25/2013 Office Visit-[facility] [address] [place] [address] Unknown, Doctor, Social History Tobacco Use Types Packs/Day Years Used Date Smoking Tobacco: Never Assessed Sex and Gender Information Value Date Recorded Sex Assigned at Not on file 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 - CAD, 414.00 2. - Hyperlipidemia, 272.4 3. - Hypertension, benign, 401.1 4. PTCA, V45.82 5. SD-S/P Anterior, 412 6. - Angina Pectoris, 413.9 [...] medication change HISTORY OF PRESENT ILLNESS Mr. [place] is a delightful 72-year-old gentleman who presents to the [facility] today for a follow-up visit regarding his recent stress echocardiogram. As you recall, he is followed in our office by Dr. 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; Sexual Activity- sexually inactive; Residence - lives with ; Place of - [place]; Spouse's Occupation -retired; REVIEW OF SYSTEMS [...] on filedocumented in this encounter Care Teams Rn Long Term Care Relationship Specialty Start Date End Date System, Provider Not In PCP - General Clinic 07/26/13 10/12/13 [facility] [address] [place] [address] PCP - General 10/13/13 04/16/14 Amari Nelson MD [address] [place] [address] PCP - General 04/17/14 Simon Gudino MD Assigned Heart and Vascular Provider 12/16/19 05/08/20 Ellen Govea PA-C [address] [place] [address] Assigned Heart and Vascular Provider 05/09/20 03/16/21 Franck Alfaro MD Assigned Heart and Vascular Provider 03/17/21 12/27/21 Neetu Soria, ENTERPRISE ENGINEER ROLLER HELPER [address] [place] [address] Assigned Heart and Vascular Provider 12/28/21 04/18/22 Franck Alfaro MD [address] [place] [address] Assigned Heart and Vascular Provider 04/19/22 06/27/22 Neetu Soria, ENTERPRISE ENGINEER ROLLER HELPER [address] [place] [address] Assigned Heart and Vascular Provider 06/28/22 01/15/24 Franck Alfaro MD Assigned Heart and Vascular Provider 04/17/24 06/14/24 Neetu Soria, ENTERPRISE ENGINEER ROLLER HELPER [address] [place] [address] Assigned Heart and Vascular Provider 06/15/24 09/13/24 Marky Blum MD Assigned Heart and Vascular Provider 09/14/24 documented as of this encounter
--- OUTSIDE RECORDS SUMMARY | 2024-11-28 13:41 | XMS_ITS | Encounter Summary ---
Author Organization [place] Address [address] [place] [address] Care Team Providers Care Filter Washer And Presser Name Role Phone System, Provider Not In Primary Care Provider Un available [facility], [facility] Primary Care Provider Kevin Nelson MD Primary Care Provider Simon Gudino MD Unavailable Unavail able Ellen Govea PA-C Unavailable Franck Alfaro MD Unavailable Unavailab leigh Soria, July E RESIDENT IN DIAGNOSTIC RADIOLOGY LINEN CLERK Unavailable [phone] Franck Alfaro MD Unavailable Unavailab leigh Soria, July E RESIDENT IN DIAGNOSTIC RADIOLOGY LINEN CLERK Unavailable [phone] Franck Alfaro MD Unavailable Unavailab leigh Soria, July E RESIDENT IN DIAGNOSTIC RADIOLOGY LINEN CLERK Unavailable [phone] Marky Blum MD Unavailable Un available Encounter Details Date Type Department Care Team (Late st Contact Info) Description 12/15/2011 Office Visit-[facility] [address] [place] [address] Unknown, Doctor, Social History Tobacco Use Types Packs/Day Years Used Date Smoking Tobacco: Never Assessed Sex and Gender Information Value Date Recorded Sex Assigned at Not on file 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 - CAD, 414.00 2. - Hyperlipidemia, 272.4 3. - Hypertension, benign, 401.1 4. MO-S/P Anterior, 412 5. Shortness of breath, 786.05 [...] delightful 71-year-old gentleman who presents to the [facility] today for a follow-up visit. As you recall, he was seen this past couple of weeks for his annual cardiology follow-up visit and he was concerned because he had shortness of breath with exertion over approximately 4-5 months. He has a history of known coronary artery disease with stenting to his LAD after presenting with an non-ST elevation MO five years ago. He has not had [...] or infarction that was done at the [facility]. 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; Sexual Activity- sexually inactive; Residence [...] on filedocumented in this encounter Care Teams Filter Washer And Presser Relationship Specialty Start Date End Date System, Provider Not In PCP - General Clinic 07/26/13 10/12/13 [facility] [address] [place] [address] PCP - General 10/13/13 04/16/14 Kevin Nelson MD [address] [place] [address] PCP - General 04/17/14 iSmon Gudino MD Assigned Heart and Vascular Provider 12/16/19 05/08/20 Ellen Govea PA-C [address] [place] [address] Assigned Heart and Vascular Provider 05/09/20 03/16/21 Franck Alfaro MD Assigned Heart and Vascular Provider 03/17/21 12/27/21 Neetu Soria APRN LINEN CLERK [address] [place] [address] Assigned Heart and Vascular Provider 12/28/21 04/18/22 Franck Alfaro MD [address] [place] [address] Assigned Heart and Vascular Provider 04/19/22 06/27/22 Neetu Soria, JENNA LINEN CLERK [address] [place] [address] Assigned Heart and Vascular Provider 06/28/22 01/15/24 Franck Alfaro MD Assigned Heart and Vascular Provider 04/17/24 06/14/24 Neetu Soria, JENNA LINEN CLERK [address] [place] [address] Assigned Heart and Vascular Provider 06/15/24 09/13/24 Marky Blum MD Assigned Heart and Vascular Provider 09/14/24 documented as of this encounter
--- OUTSIDE RECORDS SUMMARY | 2024-11-28 13:41 | XMS_ITS | Encounter Summary ---
Author Organization [place] Address [address] 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 Gender Identity Not on file Sexual Orientation Not on file documented as of this encounter Miscellaneous Notes * Telephone Encounter - June Lei - 10/18/2024 10:59 AM CDT 1st attempt- Left voicemail for the patient to call back and schedule the following: Appointment type: Return Cardiology Provider: Neetu Soria Return date: February 2025 Specialty phone number: [phone] documented in this encounter Plan of Treatment Not on file documented as of this encounter Visit Diagnoses Not on filedocumented in this encounter Additional Health Concerns Assessment Noted Time PHQ-9 Depression Total Score: 10 023 12:46 PM CITY DISPATCHER documented as of this encounter Care Teams Salad Chef Relationship Specialty Start Date End Date Kevin Nelson MD [address] [place] [address] PCP - General 04/17/14 Marky Blum MD Assigned Heart and Vascular Provider 09/14/24 documented as of this encounter
--- OUTSIDE RECORDS SUMMARY | 2024-11-28 13:41 | XMS_ITS | Encounter Summary ---
Author Organization [place] Address [address] [facility] [place] [address] Care Team Providers Care Payroll Technician Name Role Phone System, Provider Not In Primary Care Provider Un available [facility], [facility] Primary Care Provider Kevin Nelson MD Primary Care Provider Simon Gudino MD Unavailable Unavail able Ellen Govea PA-C Unavailable Franck Alfaro MD Unavailable Unavailab leigh Soria, July E LEAD JAVA SOFTWARE ENGINEER KNOT BORER Unavailable Franck lAfaro MD Unavailable Unavailab leigh Soria, July E LEAD JAVA SOFTWARE ENGINEER KNOT BORER Unavailable Franck Alfaro MD Unavailable Unavailab leigh Soria, July E LEAD JAVA SOFTWARE ENGINEER KNOT BORER Unavailable Marky Blum MD Unavailable Un available Encounter Details Date Type Department Care Team (Late st Contact Info) Description 09/04/2009 Office Visit-[facility] [place] [address] [facility] [address] [place] [address] Yang July E, LEAD JAVA SOFTWARE ENGINEER KNOT BORER [address] 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 [id number] DATE: 09/04/2009 [facility] DATE OF : 1940 AGE: [age] years old Referring Physician: KRYSTLE CARLOS CURRENT DIAGNOSES 1. - Angina Pectoris, 413.9 2. SD-S/P Anterior, 412 3. PTCA, V45.82 4. - [...] 69-year-old male who presents to the [facility] today for a follow-up visit. 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; Sexual Activity - sexually inactive; Residence - lives with ; Place of - [place]; Spouse's Occupation - retired; REVIEW OF SYSTEMS [...] on filedocumented in this encounter Care Teams Payroll Technician Relationship Specialty Start Date End Date System, Provider Not In PCP - General Clinic 07/26/13 10/12/13 [place] [id number] PCP - General 10/13/13 04/16/14 Kevin Nelson MD [address] [place] [address] [place] [address] PCP - General 04/17/14 Simon Gudino MD Assigned Heart and Vascular Provider 12/16/19 05/08/20 Ellen Govea PA-C [address] [place] [address] Assigned Heart and Vascular Provider 05/09/20 03/16/21 Franck Alfaro MD Assigned Heart and Vascular Provider 03/17/21 12/27/21 Neetu Soria, LEAD JAVA SOFTWARE ENGINEER KNOT BORER [address] [place] [address] Assigned Heart and Vascular Provider 12/28/21 04/18/22 Franck Alfaro MD [address] [place] [address] Assigned Heart and Vascular Provider 04/19/22 06/27/22 Neetu Soria, JENNA KNOT BORER [address] [place] [address] Assigned Heart and Vascular Provider 06/28/22 01/15/24 Franck Alfaro MD Assigned Heart and Vascular Provider 04/17/24 06/14/24 Neetu Soria, JENNA KNOT BORER [address] [place] [address] Assigned Heart and Vascular Provider 06/15/24 09/13/24 Marky Blum MD Assigned Heart and Vascular Provider 09/14/24 documented as of this encounter
--- OUTSIDE RECORDS SUMMARY | 2024-11-28 13:41 | XMS_ITS | Encounter Summary ---
Author Organization [place] Address [address] [place] [address] Care Team Providers Care Roustabout Pusher Name Role Phone Kevin Nelson MD Primary Care Provider Neetu Soria E SUPERVISOR DITCHING REPAIRER PUMP Unavailable [phone] Marky Blum MD Unavailable Un available Reason for Visit * Reason Comments Blood Pressure Check Encounter Details Date Type Department Care Team (Latest Contact Info) Description 06/17/[address] [facility] [address] [place] [address] Claudia Garcias, [facility] Blood Pressure Check Social History Tobacco Use [...] in an abandoned building, in an overnight usp, or couch-surfing.) Yes 04/21/2024 Are you worried [...] on file Legal Sex Male 4:49 AM BASKET MAKER Gender Identity Not on file Sexual Orientation Not on file documented as of this encounter Plan of Treatment Not on file documented as of this encounter Visit Diagnoses Not on filedocumented in this encounter Additional Health Concerns Assessment Noted Time PHQ-9 Depression Total Score: 10 023 12:46 PM BASKET MAKER documented as of this encounter Care Teams Roustabout Pusher Relationship Specialty Start Date End Date Kevin Nelson MD [address] [place] [address] PCP - General 04/17/14 Neetu Soria APRN REPAIRER PUMP [address] [place] [address] Assigned Heart and Vascular Provider 06/15/24 09/13/24 Marky Blum MD Assigned Heart and Vascular Provider 09/14/24 documented as of this encounter
[2024-11-28 13:58] LABS: Lactate* 2.1 mmol/L (0.5-1.9)
[2024-11-28 14:30] LABS: Hematocrit* 29.5 % (37.0-53.0); Hemoglobin* 9.9 gm/dL (13.5-17.5); Immature Granulocytes Pct Auto 0.6 %; Mean Corpuscular HGB Conc 34 gm/dL (32-36); Mean Corpuscular Hemoglobin 31 pg (26-34); Mean Corpuscular Volume 92 fL (80-100); RDW Coefficient of Variation % 14.7 % (11.5-15.5); Red Blood Count* 3.20 m/uL (4.30-5.90); White Blood Count* 13.89 K/uL (4.50-11.00)
[2024-11-28 14:34] LABS: Immature Granulocytes Abs Auto 0.10 K/uL (0.00-0.30); Lymphocytes Absolute Auto 2.00 K/uL (0.90-2.90); Slide Review Reflex No
[2024-11-28 14:37] LABS: PCR FLU A Negative PCR FLU A (Negative); PCR FLU B Negative PCR FLU B (Negative); PCR RSV Negative PCR RSV (Negative); SARS PCR* Negative SARS-CoV-2 (Negative)
[2024-11-28 14:49] LABS: Albumin* 3.6 g/dL (3.3-5.0); Chloride* 99 mmol/L (96-114); Potassium* 4.4 mmol/L (3.6-5.1); Sodium* 133 mmol/L (135-149)
[2024-11-28 14:51] LABS: Alanine Aminotransferase* 22 U/L (4-50); Anion Gap 8 mEq/L (7-15); Aspartate Amino Transferase* 27 U/L (12-35); Blood Urea Nitrogen* 17 mg/dL (7-30); Carbon Dioxide* 26 mmol/L (20-32); Creatinine* 1.0 mg/dL (0.5-1.5); Estimated Glomerular Filt Rate 73 ml/min
[2024-11-28] MEDS: cefTRIAXone 1 GM in 0.9 % SODIUM CHLORIDE Mini-bag 100 ML IVPB (14:51)
[2024-11-28 14:52] LABS: Alkaline Phosphatase* 89 U/L (40-150); Bilirubin Total* 0.5 mg/dL (0.1-1.5); Calcium* 9.0 mg/dL (8.4-10.6); Glucose* 149 mg/dL (60-115); Total Protein* 6.1 g/dL (6.0-8.3)
[2024-11-28] MEDS: PANTOPRAZOLE SODIUM 40 MG INJ 80 MG IVP (15:21)
[2024-11-28 15:36] LABS: Appearance Urine Clear (Clear)
--- NOTE | 2024-11-28 18:21 | CRLHL7_ITS ---
For Patients: As a result of the Century Cures Act, medical imaging exams and procedure reports are released immediately into your electronic medical record. You may view this report before your referring provider. If you have questions, please contact your health care provider. INDICATION: Altered mental status, recent anticoagulation. TECHNIQUE: Noncontrast CT of the head with multiplanar reconstruction utilizing bone and soft tissue algorithms. COMPARISON: CT head dated 07/31/2018. FINDINGS: No acute intracranial abnormality. Scattered hypoattenuation within the supratentorial white matter typical of chronic small vessel ischemic changes. Haji-white matter differentiation is maintained. Mild diffuse parenchymal volume loss. The ventricles are proportional to the sulci. No abnormal extra-axial fluid collection is identified. Intact calvarium and skull base. Bilateral pseudophakia. The imaged paranasal sinuses and mastoid air cells are clear. IMPRESSION: No acute intracranial hemorrhage or mass effect. Please note that all CT scans at this facility use dose modulation, iterative reconstruction, and/or weight-based dosing when appropriate to reduce radiation dose to as low as reasonably achievable. Dictated by Jake Lyons MD @ 11/28/2024 7:10:42 PM (Electronically Signed)
--- NOTE | 2024-11-28 18:24 | P.IMHP_ITS ---
Assessment and Plan Assessment and plan (1) Acute alteration in mental status: Problem comment: - reported by family in ED as more confused than normal, occasional hallucinating - seeing bugs on the wall - prior to discharge from this hospital on 11/18/2024, OT attempted to complete a Aiken but unable to do so as patient was not feeling well (Mini Cog 4 earlier this year) - mild leukocytosis without a significant left shift, lactate 2.1 - rechecking on admission, electrolytes and LFTs unremarkable, triple swab negative, afebrile, vitally stable - skin check on admission without significant concern for cellulitis - recently treated for a UTI however UA in ED is not significantly abnormal tonight - no Mar available from [facility] for review of potential causes. Unknown narcotic use - CT head ordered. Of note, completed 5 days of Xarelto, now back on aspirin and clopidogrel. R/o bleed or other etiology - UC and BC x1 pending - continue ceftriaxone as initiated in ED for now, discontinuing as able Status: Acute (2) Acute UTI: Problem comment: - history of self catheterization, recent indwelling Vallecillo perioperatively - has been on nitrofurantoin for UTI since 11/25, urine culture growing pansensitive E coli on 11/24/2024. Also noted on urine culture 11/13/2024 - does not appear to be in acute infection on this admission - no nitrates, trace LE, WBC 5-10. UC pending - received 1 dose ceftriaxone in ED Status: Acute (3) Duodenitis: Problem comment: - incidental finding on CT showing mild proximal duodenal wall thickening, concerning for duodenitis. No free intraperitoneal air or drainable fluid collections - continue PPI as started in ED - H pylori stool ordered Status: Acute (4) Femoral neck fracture: Problem comment: - s/p mechanical fall 11/13/2024 - Right hip bipolar hemiarthroplasty with Dr. Mueller on 11/14/24 - currently at [facility] for rehab Status: Acute (5) Anemia: Problem comment: - chronic, normocytic, mild - currently 9.9, postoperative Hgb 10.0 on 11/16/2024 - completed 5 days Xarelto postoperatively, currently on DAPT - continue to follow Status: Acute (6) Skin maceration: Problem comment: - gluteal cleft - appears superficial currently. No evidence of acute infection or cellulitis. MRSA ordered - skin cares, Mepilex, offloading Status: Acute (7) Essential tremor: Problem comment: - new diagnosis on 11/13/2024, Propanolol initiated 11/15/24 Status: Acute (8) Impairment of balance: Problem comment: - balance difficulties due to peripheral neuropathy prior to hip fracture - PT/OT Status: Acute (9) Hypertension: Problem comment: - continue home medications Status: Acute (10) Stage 3 chronic kidney disease: Problem comment: - Creatinine 1.0, baseline, stable Status: Acute (11) Diabetes mellitus type 2, controlled: Problem comment: - Hemoglobin A1c on September 05 was 7.5 - hold metformin, Januvia. Continue glipizide - home glargine dose 10 units -> start with 5 units on admission, adjust as necessary. SSI Status: Acute (12) Atonic bladder: Problem comment: - self catheterization at home QID, vallecillo placed 11/13 - continue self catheterization Status: Acute (13) History of coronary artery stent placement: Problem comment: - total of 5 coronary stents placed, most recently 05/17 in the RCA with EF 60% at that time; had restenosis of a stent in his diagonal which was not amenable to intervention - Electronic Design Engineer recommends clopidogrel and aspirin for 1 year (until April 2025), followed by Clopidogrel indefinitely - continued on admission Status: Acute Total Time Spent Total Time Spent: Today I spent 75 minutes seeing the patient, reviewing Expanse and EPIC notes/diagnostics, discussing the care plan with our care time that includes social work, PT/OT, pharmacy, RT, longterm and documenting my impressions and plan in the medical record. Hospitalist- H&P: HPI History of Present Illness Date Seen: 11/28/24 Chief complaint: Weakness Narrative: Pratik Madera is a 84 year old male past medical history significant for coronary artery disease status post stenting 6 months ago, diabetes mellitus, peripheral neuropathy, atonic bladder with self catheterization, hypertension, status post Right hip bipolar hemiarthroplasty with Dr. Mueller on 11/14/24 following a fall on 11/13/2024 is readmitted to the hospital for acute altered mental status. Patient is seen lying in bed, family is not present having left from the ED. history is obtained from ED provider and notes. Patient has been at [address] [place] [address] for rehab following surgical repair right hip on 11/14/2024. Per records, family has been concerned of increasing confusion. Of note, a Aiken was attempted here on 11/18/24 was not able to be completed as patient was not feeling well. At baseline, previous mini cog during Medicare wellnes exam earlier this year, patient score was a 4. From what I can ascertain from EMR, cognition has been declining following surgery. There is report of hallucinations, seeing bugs on the wall. Patient was treated for an E coli UTI noted on 11/24/2024, started on nitrofurantoin in on 11/25. No reports of fevers or cough. No reports of chest pain. Apparently had some vomiting but this has since resolved. CT obtained in the ED is questionable for colitis however no report of increased stools or diarrhea noted. Patient completed 5 day course of Xarelto postoperatively and has been back on his aspirin and clopidogrel. No report of active bleed. PCP is Dr. Nelson. Currently resides at [facility] for rehab. Review of Systems Narrative: REVIEW OF SYSTEMS: Complete review of systems performed and negative unless otherwise stated in HPI or below. History obtained from ED provider and EMR as patient is currently a poor historian. Medical Decision Making Medical Decision Making Code Status: Full code Has patient completed a Health Care Directive: Yes During This Stay, Who Would You Like To Make Decisions For You In The Event You Are Unable To Make Them For Yourself?: Yamilex Madera [phone] [facility] Medical History Essential tremor ?G25.0 - Essential tremor (ICD-10) Impairment of balance ?R26.89 - Other abnormalities of gait and mobility (ICD-10) Peripheral neuropathy ?G62.9 - Polyneuropathy, unspecified (ICD-10) Hyperlipidemia ?E78.5 - Hyperlipidemia, unspecified (ICD-10) Hypertension ?I10 - Essential (primary) hypertension (ICD-10) Anemia ?D64.9 - Anemia, unspecified (ICD-10) Stage 3 chronic kidney disease ?N18.30 - Chronic kidney disease, stage 3 unspecified (ICD-10) Diabetes mellitus type 2, controlled ?E11.9 - Type 2 diabetes mellitus without complications (ICD-10) Atonic bladder ?N31.2 - Flaccid neuropathic bladder, not elsewhere classified (ICD-10) Peripheral vascular disease ?I73.9 - Peripheral vascular disease, unspecified (ICD-10) Coronary artery disease ?I25.10 - Atherosclerotic heart disease of [place] coronary artery without angina pectoris (ICD-10) Surgical History History of right hip hemiarthroplasty (11/14/24) ?Z96.641 - Presence of right artificial hip joint (ICD-10) History of laparoscopy ?Z98.890 - Other specified postprocedural states (ICD-10) History of hernia repair ?Z98.890 - Other specified postprocedural states (ICD-10) ?Z87.19 - Personal history of other diseases of the digestive system (ICD-10) History of coronary artery stent placement ?Z95.5 - Presence of coronary angioplasty implant and graft (ICD-10) Family History Father Heart disease Stroke Sister Heart disease Brother Heart disease Diabetes Social History Narrative: He lives in [place] with his . 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 He does not smoke. He rarely drinks alcohol. Code status is DNR. 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 What is your current living situation?: I presently have a place to live Problems where you live: no known problems In the past 12 months, utilities in danger of being shut off: no In past 12 months, lack of transportation kept you from medical appts, meetings, work, or getting things needed for daily living: no In the past 12 mos, have been you worried that your food would run out before you had money to buy more?: never true In the past 12 mos, the food you bought just didn't last and you didn't have money to buy more?: never true Highest level of school completed/degree received: 8th grade Smoking Status: Former smoker How often do you have a drink containing alcohol: never AUDIT-C Alcohol total score: 0 Non-prescribed substance use: denies use Caffeine: Yes How often does anyone, including family, friends and others, physically hurt you : never How often does anyone, including family, friends and others, insult or talk down to you: never How often does anyone, including family, friends and others, threaten you with harm: never How often does anyone, including family, friends and others, scream or curse at you: never service: No Meds Home Medications and Allergies Home Medications ?Medication ?Instructions ?Recorded ?Confirmed ?Type clopidogrel 75 mg tablet 75 mg PO DAILY 10/25/2108/17 History glipizide 5 mg tablet 5 mg PO BIDWM 10/25/2111/28 History isosorbide mononitrate 30 mg 30 mg PO DAILY 10/25/21 1 History tablet,extended release 24 hr losartan 50 mg tablet 50 mg PO DAILY 10/25/2108/17 History nitroglycerin 0.4 mg sublingual 0.4 mg sublingual Q5M PRN 10/25/21 11/28/24 History tablet rosuvastatin 20 mg tablet 10 mg PO HS 10/25/21 5 History metformin 1,000 mg tablet 1,000 mg PO BID 11/14/2408/17 History ranolazine 500 mg tablet,extended 500 mg PO Q12H 11/1411/28/24 History release,12 hr sitagliptin phosphate 100 mg 100 mg PO DAILY 11/14/24 11/28/24 History tablet (Januvia) acetaminophen 500 mg tablet 1,000 mg (2 x 500 mg) PO Q 8H #30 11/17/24 11/28/24 Rx tabs aspirin 81 mg tablet 81 mg PO DAILY #30 tabs 10/2511/28/24 Rx docusate sodium 100 mg capsule 100 mg PO BID PRN Const ipation #60 11/17/24 11/28/24 Rx caps lidocaine 5 % topical patch 1 patch transdermal Q24H # 30 ea 11/17/24 11/28/24 Rx propranolol 20 mg tablet 20 mg PO DAILY #30 tabs 10/2511/28/24 Rx bisacodyl 10 mg rectal suppository 10 mg PA DAILY PRN 11/28/24 11/28/24 History insulin aspart U-100 100 unit/mL 1 sliding scale dose subcut 11/28/24 11/28/24 History subcutaneous solution (Novolog USEASDIRECTD U-100 Insulin aspart) insulin glargine 100 unit/mL (3 10 unit subcut DAILY@0 7 11/28/24 11/28/24 History mL) subcutaneous pen nitrofurantoin 100 mg PO BID 11/28/2411/28 History monohydrate/macrocrystals 100 mg capsule (Macrobid) ondansetron 4 mg disintegrating 4 mg PO Q4H PRN 11/28/24 History tablet oxycodone 5 mg tablet 2.5 mg PO Q4H PRN pain 11/2811/28/24 History sennosides 8.6 mg-docusate sodium 2 tab-cap PO BID PRN constipation 11/28/24 11/28/24 History 50 mg tablet (Senna-S) Allergies Allergy/AdvReac Type Severity Reaction Status Date / Time atenolol Allergy Unknown Verified 11/28/24 12:47 atorvastatin Allergy Unknown Myalgia Verified 11/28/24 12:47 lisinopril AdvReac Unknown Cough Verified 11/28/24 12:47 metoprolol AdvReac Unknown Headache Verified 11/28/24 12:47 Exam Narrative: Exam Narrative: PHYSICAL EXAM General: Confused, appears comfortable and in NAD HEENT: Normocephalic, atraumatic, sclera white, EOMI, oral mucosa moist Cardiovascular: RRR, S1S2. No pitting edema Pulmonary: CTA bilaterally without rhonchi, rales, expiratory wheezes. No dyspnea on room air Abdominal: Soft, nondistended, NTTP Neurological: Alert, unable to provide history or participate meaningfully exam Extremities: No gross joint deformity or swelling. AROMI. Neurovascularly intact Skin: Warm, dry. Gluteal cleft with mild pinkish erythema, superficial maceration, no bleeding or drainage, no streaking Const: Vital Signs, click to edit/add: Vital Signs - 24 hr 11/28/24 12:49 11/28/24 13:12 11/28/24 13:15 Temperature 97.3 F L Pulse Rate 67 68 Pulse Rate [Left P ulse Oximeter] Pulse Rate [Pulse Oximeter] 64 Respiratory Rate 20 Blood Pressure Blood Pressure [Le ft Upper Arm] 172/82 H Blood Pressure [Ri ght Arm] Pulse Oximetry 98 97 97 Oxygen Delivery Me thod Room Air 11/28/24 13:17 11/28/24 13:21 11/28/24 13:22 Temperature Pulse Rate 71 68 65 Pulse Rate [Left P ulse Oximeter] Pulse Rate [Pulse Oximeter] Respiratory Rate Blood Pressure 157/70 H 171/88 H Blood Pressure [Le ft Upper Arm] Blood Pressure [Ri ght Arm] Pulse Oximetry 96 98 99 Oxygen Delivery Me thod 11/28/24 13:30 11/28/24 13:32 11/28/24 13:45 Temperature Pulse Rate 67 70 68 Pulse Rate [Left P ulse Oximeter] Pulse Rate [Pulse Oximeter] Respiratory Rate Blood Pressure 158/72 H Blood Pressure [Le ft Upper Arm] Blood Pressure [Ri ght Arm] Pulse Oximetry 98 98 100 Oxygen Delivery Me thod 11/28/24 13:47 11/28/24 14:44 11/28/24 14:45 Temperature Pulse Rate 71 69 Pulse Rate [Left P ulse Oximeter] Pulse Rate [Pulse Oximeter] Respiratory Rate Blood Pressure 161/75 H Blood Pressure [Le ft Upper Arm] Blood Pressure [Ri ght Arm] Pulse Oximetry 98 95 Oxygen Delivery Me thod 11/28/24 14:50 11/28/24 14:56 11/28/24 15:00 Temperature Pulse Rate 69 69 69 Pulse Rate [Left P ulse Oximeter] Pulse Rate [Pulse Oximeter] Respiratory Rate Blood Pressure 178/82 H Blood Pressure [Le ft Upper Arm] Blood Pressure [Ri ght Arm] Pulse Oximetry 94 97 95 Oxygen Delivery Me thod 11/28/24 15:02 11/28/24 15:15 11/28/24 15:17 Temperature Pulse Rate 69 67 70 Pulse Rate [Left P ulse Oximeter] Pulse Rate [Pulse Oximeter] Respiratory Rate Blood Pressure 183/73 H 200/96 H Blood Pressure [Le ft Upper Arm] Blood Pressure [Ri ght Arm] Pulse Oximetry 95 97 98 Oxygen Delivery Me thod 11/28/24 15:25 11/28/24 15:30 11/28/24 15:33 Temperature Pulse Rate 70 67 67 Pulse Rate [Left P ulse Oximeter] Pulse Rate [Pulse Oximeter] Respiratory Rate Blood Pressure 170/96 H 191/70 H Blood Pressure [Le ft Upper Arm] Blood Pressure [Ri ght Arm] Pulse Oximetry 99 97 98 Oxygen Delivery Me thod 11/28/24 15:34 11/28/24 15:45 11/28/24 15:47 Temperature Pulse Rate 65 64 69 Pulse Rate [Left P ulse Oximeter] Pulse Rate [Pulse Oximeter] Respiratory Rate Blood Pressure 207/88 H Blood Pressure [Le ft Upper Arm] Blood Pressure [Ri ght Arm] Pulse Oximetry 98 97 98 Oxygen Delivery Me thod 11/28/24 16:00 11/28/24 16:02 11/28/24 16:15 Temperature Pulse Rate 69 71 66 Pulse Rate [Left P ulse Oximeter] Pulse Rate [Pulse Oximeter] Respiratory Rate Blood Pressure 196/81 H Blood Pressure [Le ft Upper Arm] Blood Pressure [Ri ght Arm] Pulse Oximetry 100 100 99 Oxygen Delivery Me thod 11/28/24 16:17 11/28/24 16:18 11/28/24 16:47 Temperature 97.4 F L Pulse Rate 73 Pulse Rate [Left P ulse Oximeter] 71 Pulse Rate [Pulse Oximeter] Respiratory Rate 16 Blood Pressure 183/68 H Blood Pressure [Le ft Upper Arm] Blood Pressure [Ri ght Arm] 204/95 H Pulse Oximetry 98 [facility]/28[facility] 18:16 Temperature 97.5 F L Pulse Rate Pulse Rate [Left P ulse Oximeter] 66 Pulse Rate [Pulse Oximeter] Respiratory Rate 16 Blood Pressure Blood Pressure [Le ft Upper Arm] Blood Pressure [Ri ght Arm] 177/74 H Pulse Oximetry 97 [facility] Hospitalist - H&P: Result Labs Labs: Short CBC 11/28/24 Range/Units 14:07 WBC 13.89 H (4.50-11.00) K/uL Hgb 9.9 L (13.5-17.5) gm/dL Hct 29.5 L (37.0-53.0) % Plt Count 378 (140-440) K/uL BMP 11/28/24 14:07 Sodium 133 L Potassium 4.4 Chloride 99 Carbon Dioxide 26 BUN 17 Creatinine 1.0 Glucose 149 H Calcium 9.0 Cardiac Enzymes 11/28/24 Range/Units 14:07 Troponin I < 0.01 (0.01-0.04) ng/mL Liver Function 11/28/24 Range/Units 14:07 Total Bilirubin 0.5 (0.1-1.5) mg/dL AST 27 (12-35) U/L ALT 22 (4-50) U/L Alkaline Phosphatase 89 (40-150) U/L Albumin 3.6 (3.3-5.0) g/dL Urine 11/28/24 Range/Units 15:15 Urine Color Dark yellow (Yellow) Urine Appearance Clear (Clear) Urine pH 5.5 (5.0-8.5) Ur Specific [place] 1.015 (1.000-1.030) Urine Protein Negative (Negative) Urine Glucose (UA) Negative (Negative) ECG Attestation: I personally reviewed and interpreted this ECG as follows: Interpretation: Sinus rhythm, first-degree AV block, QTC [address] scan - abdomen: Attestation: I have reviewed the pertinent imaging results. Radiologist's impression: CT abdomen and pelvis acquired with 100 cc Omnipaque 350 IV contrast. COMPARISON: June 13, 2020. FINDINGS: Lower chest: Scattered atelectasis. Liver: Unremarkable. Normal in size and attenuation. No suspicious masses. Gallbladder and bile ducts: Cholelithiasis without CT evidence of acute cholecystitis. Pancreas: Fatty atrophy. No mass or inflammation. Spleen: Unremarkable. Normal in size. No masses. Adrenal glands: Unremarkable. No nodules. Kidneys: Tiny cortical hypodensities, too small to characterize.. No suspicious masses, stones, or hydronephrosis. GI tract: Mild proximal duodenal wall thickening. Fluid throughout the colon and rectum. Colonic diverticulosis without diverticulitis. No bowel obstruction. Normal appendix. Vasculature: Aortoiliac arterial calcifications. Abdominal aorta is normal in caliber. Mesenteric arteries are patent. Lymph nodes: No lymphadenopathy. Peritoneum/Abdominal Wall: Unremarkable. No sign of mass or infiltration. No free air or significant free fluid. Pelvis: Unremarkable. Bones: Right hip arthroplasty without hardware complication. IMPRESSION: Fluid throughout the colon and rectum which could suggest diarrheal illness/low-grade colitis in the appropriate clinical setting. No bowel obstruction, or drainable fluid collections. Mild proximal duodenal wall thickening, concerning for duodenitis. No free intraperitoneal air or drainable fluid collections. Chest x-ray: Attestation: I have reviewed the pertinent imaging results. Radiologist's impression: Small lung volumes. Mildly elevated right hemidiaphragm. Normal cardiomediastinal silhouette aside from coronary artery stent. No focal consolidation, pleural effusions, or visualized pneumothorax. Impression: No acute cardiopulmonary disease.
[2024-11-28 19:58] LABS: Lactate* 1.7 mmol/L (0.5-1.9)
--- NOTE | 2024-11-28 20:07 | PC.NURSE ---
end of shift: Pt. oriented to self and place. Family beside and supportive. Family able to answer questions upon admission to the floor. Pt. is able to smile and do a thumbs up when asked questions. Minimal words. O2 sats WNL. Pressure ulcer noted; PA notified and inspected. Mepilex placed. Bruising on hips and surgical incision site R hip. Poor appetite. Head CT completed.
[2024-11-28] MEDS: LIDOCAINE 5% PATCH 1 PATCH TRANSDERMA (20:20)
[2024-11-28] MEDS: SODIUM CHLORIDE 0.9 % (FLUSH) 10 ML SYRINGE 5 ML IVF (20:51)
[2024-11-28] MEDS: ROSUVASTATIN CALCIUM 10 MG TABLET PO (20:51)
--- NOTE | 2024-11-29 04:18 | PC.NURSE ---
Pt alert and oriented to self only. Afebrile. Pt denies pain, SOB, chest pain, and N/V. Pt was straight cathed x2, pt tolerated well. Pt was turned and repositioned throughout night.
[2024-11-29 05:53] LABS: Hematocrit* 26.7 % (37.0-53.0); Hemoglobin* 8.9 gm/dL (13.5-17.5); Mean Corpuscular HGB Conc 33 gm/dL (32-36); Mean Corpuscular Hemoglobin 31 pg (26-34); Mean Corpuscular Volume 94 fL (80-100); Red Blood Count* 2.83 m/uL (4.30-5.90); White Blood Count* 8.49 K/uL (4.50-11.00)
[2024-11-29 05:55] LABS: Slide Review Reflex No
[2024-11-29 06:02] LABS: Chloride* 104 mmol/L (96-114); Sodium* 133 mmol/L (135-149)
[2024-11-29 06:03] LABS: Potassium* 3.8 mmol/L (3.6-5.1)
[2024-11-29 06:05] LABS: Blood Urea Nitrogen* 11 mg/dL (7-30); Creatinine* 0.9 mg/dL (0.5-1.5); Est. Creatinine Clearance* 58.20; Estimated Glomerular Filt Rate 83 ml/min
[2024-11-29 06:06] LABS: Anion Gap 5 mEq/L (7-15); Calcium* 8.4 mg/dL (8.4-10.6); Carbon Dioxide* 24 mmol/L (20-32); Glucose* 113 mg/dL (60-115)
[2024-11-29 08:00] VITALS: BP 153/62; PULSE 69; RESP 18; TEMP 36; O2SAT 94
--- NOTE | 2024-11-29 09:08 | W.PC.NUTR.HO ---
Hospital Nutrition Assessment Patient Data Patient Gender: Male Patient Age: 84 Height: 6 ft Weight: 197 lb 1 oz Body Mass Index: 26.7 Weight Calculations [place] Body Weight (lbs): 178.00 [place] Body Weight (kg): 80.74 Percent of [place] Body Weight: 111 Adjusted Body Weight (lbs): 182.77 Adjusted Body Weight (kg): 82.90 Basal Energy Expenditure (BEE): 1627.86 Basal Energy Expenditure (BEE) Adjusted Weight: 1538.67 Activity/Stress Factors Injury Factor/Activity Factor Value: 1.2 Total Energy Requirements Kcal requirements (current wt): 1953.432 Kcal requirements (adj wt): 1846.404 Protein Need (current wt): 1.0 Total Protein (current wt): 89.386 Protein Need (adj wt): 1.0 Total Protein (adj wt): 82.900 Fluid Need (current wt): 30 Total Fluid (current wt): 2681.581 Fluid Need (adj wt): 30 Total Fluid (adj wt): 2487.00 Nutrition Assessment Diet Order: Regular Food Modified for Dysphagia: 7-Regular Liquid Modified for Dysphagia: 0-Thin Allergies: NKFA Appetite Prior to Admission: Poor Appetite and Intake: poor - prior to arrival Hx Appetite Changes: Yes (Poor r/t altered mental status) Hx Weight Loss: Yes (unsure, wt fluctuated during last admit from 11/13-11/18) Hx Weight Gain: No Nausea: No Vomiting: No Diarrhea: No Hx Constipation: No Chewing Difficulty: No Swallowing Difficulty: No Pressure Ulcer: No Diagnosis/Symptom or Procedure: Altered mental status Clinical History: Medical history includes but not limited to coronary artery disease s/p stenting 6 months ago, diabetes mellitus, peripheral neuropathy, hypertension, Stage 3 chronic kidney disease, s/p Right hip bipolar hemiarthroplasty with Dr. Mueller on 11/14/24 following a fall on 11/13/2024. Current Living Situation: Lives currently at [facility] for rehab following Right hip bipolar hemiarthroplasty. Medications Medications: reviewed. Lab Results Lab Results: reviewed. Assessment/Plan PES Statement: Inadequate oral intakes related to altered mental status as evidenced by 25% intake since admit, patient with altered mental status couple days before admit with poor appetite. Nutritional Assessment Summary: RDN with nutrition screen related to poor appetite, significant weight change. Patient admitted for altered mental status. Was admitted from 11/13 to 11/18 for hip fracture requiring MARIA ALEJANDRA. Patient discharged after that to [facility] for rehab. Meal intakes minimal since admit. Weight history: Patient's weight has fluctuated since last admit. 11/13/2024 - 208lb 9.6oz 11/14/2025 - 191lb 8oz 11/18/2024 - 210lb 11/29/2024 - 197lb 1oz Weight loss on 11lbs in 2 weeks is a significant weight loss of 5.2%. Weights have been obtained using bedscale vs. standing scale. Visited with patient, family members were leaving room right before visit. Patient confirmed his appetite has been lower recently. Nursing staff was in room during visit and mentioned he drank Ensure Enlive this morning. Patient liked Ensure Enlive and agreed to receive it twice daily. Patient thinks he has lost weight but unsure how much. With significant weight loss and poor appetite, I will order Ensure Enlive BID to provide and additional 700 kcals and 40 grams protein to help meet estimated daily energy needs. Concern for patient at risk of malnutrition - recommending MD to further assess. Discharge Plan-Living Situation: [facility] at discharge. Goals: Adequate oral intake of 50%+ meals and supplements. Plan/Recommendation: Regular diet per MD order. Offer Enlive BID or per patient preference. RDN will continue to monitor and follow-up prn. Malnutrition Assessment Current Energy Intake: Less Than 75% Estimated Timeframe Of Energy Intake: Greater Than Or Equal To 7 Days (Approximately two weeks) Weight Changes: >2% In 1 Week (Approximately 5% in two weeks) Recommended Malnutrition Diagnosis: Severe Protein-Calorie Malnutrition and Further Physical Evaluation Required By MD To Determine In The Context: Acute Injury/Illness Based On: Weight Loss and Inadequate Energy Intakes
[2024-11-29] MEDS: ASPIRIN 81 MG TABLET EC PO (09:20)
[2024-11-29] MEDS: cefTRIAXone 1 GM in 0.9 % SODIUM CHLORIDE Mini-bag 100 ML IVPB (09:20)
[2024-11-29] MEDS: ISOSORBIDE MONONITRATE ER 30 MG TAB PO (09:20)
[2024-11-29] MEDS: LOSARTAN POTASSIUM 50 MG TABLET PO (09:21)
[2024-11-29] MEDS: CLOPIDOGREL 75 MG TABLET PO (09:21)
[2024-11-29] MEDS: PROPRANOLOL 20 MG TABLET PO (09:21)
[2024-11-29] MEDS: PANTOPRAZOLE SODIUM 40 MG INJ IVP (09:22)
[2024-11-29 11:00] VITALS: BP 124/58; PULSE 68; RESP 18; O2SAT 96
[2024-11-29] MEDS: SITAGLIPTIN PHOSPHATE 50 MG TABLET 100 MG PO (11:02)
--- NOTE | 2024-11-29 11:06 | PC.SOCIAL ---
Discharge planning: wall worker met with the pt and his family and confirmed that the pt is on a bed hold at [facility] and they plan to keep the bed hold. Social work to follow-up as needed.
[2024-11-29 11:12] VITALS: BMI 26.7
--- NOTE | 2024-11-29 11:19 | P.IMPN_ITS ---
Assessment and Plan Assessment and plan (1) Acute metabolic encephalopathy: Problem comment: Patient appears to have metabolic encephalopathy possibly due to multiple factors. This appears to be a hypoactive delirium. I suspect some underlying cognitive impairment. His chronic UTI secondary to his chronic catheterization may be playing a role though he is not clinically improved with antibiotics. Family is concerned that he is in giving up. Status: Acute (2) Duodenitis: Problem comment: - incidental finding on CT showing mild proximal duodenal wall thickening, concerning for duodenitis. No free intraperitoneal air or drainable fluid collections - continue PPI as started in ED - H pylori stool ordered Status: Acute (3) Malnutrition: Problem comment: Patient appears to have lost about 8 kg in the past 2 weeks. Family reports very poor oral intake for the last 2 weeks. Closely monitor and supplement as needed. Both mental status changes and duodenitis likely contribute to this. Status: Acute (4) Acute UTI: Problem comment: - history of self catheterization, recent indwelling Vallecillo perioperatively Patient likely colonized from catheterization. Unclear whether active infecti on is contributing to mental status changes. On appropriate therapy for pansensitive E coli Status: Acute (5) Essential tremor: Problem comment: - new diagnosis on 11/13/2024, Propanolol initiated 11/15/24 Status: Acute (6) Impairment of balance: Problem comment: - balance difficulties due to peripheral neuropathy prior to hip fracture - PT/OT Status: Acute (7) Atonic bladder: Problem comment: - self catheterization at home QID, vallecillo placed 11/13 - continue self catheterization Status: Acute (8) Diabetes mellitus type 2, controlled: Problem comment: - Hemoglobin A1c on September 05 was 7.5 I just diabetes treatments to blood sugars in the context of very poor oral intake Status: Acute (9) Femoral neck fracture: Problem comment: - s/p mechanical fall 11/13/2024. No apparent surgical complications - Right hip bipolar hemiarthroplasty with Dr. Mueller on 11/14/24 - currently at [facility] for rehab Status: Acute (10) Coronary artery disease: Problem comment: - recurrent interventions with coronary stents (2006, 2013, 2016 angioplasty, 2019, 2021, 2024). Continue Plavix and aspirin Status: Acute Plan Continue evaluation and management of metabolic encephalopathy and malnutrition following hip fracture surgery. Total Time Spent Total Time Spent: Total time spent today is 65 minutes in reviewing outside records, coordination of care and discussion with patient and family and other providers about ongoing management of encephalopathy, malnutrition and UTI. Subjective Date Seen: 11/29/24 Interval history: Pratik Madera is a 84 year old male past medical history significant for coronary artery disease status post stenting 6 months ago, diabetes mellitus, peripheral neuropathy, atonic bladder with self catheterization, hypertension, s tatus post Right hip bipolar hemiarthroplasty with Dr. Mueller on 11/14/24 following a fall on 11/13/2024 is readmitted to the hospital for acute altered mental status. Patient is unable to give much history today so patient history is obtained from family. He was discharged from the hospital to [address] [place] [address] for rehab on November 18. At discharge he had his Vallecillo catheter still in place. Since discharge he has been eating poorly. He has been mostly laying in bed sleeping and not engaged in conversation. He became acutely confused last week including some hallucinations. Because of this he had a urine culture obtained which showed pansensitive E coli growing in his urine. His Vallecillo catheter is removed and he was return to t.i.d. straight cath for management of his atonic bladder. He was started on ceftriaxone. Over the weekend he remained confused and withdrawn and not eating. Because of this he was brought to the emergency room for evaluation. He has not had any fever. He has not had any vomiting. His bowels are apparently working fairly normally. His reports specifically that he was having some visual hallucinations. Often his speech was difficult to understand and he seemed quite confused. Today he is less confused but unable to give much history of recent events. He does know he is in the hospital but does not know why he is here. He tells me he has no appetite. He is not having any nausea or abdominal pain. Exam Narrative: Exam Narrative: He is alert and appears in no distress. Oriented to place but not circumstances. Head is without trauma. Eyes normal. Oropharynx normal. Neck is supple without mass or adenopathy. Respirations are clear to auscultation. No wheezing rales or rhonchi. Cardiovascular: S1, S2, regular rate and rhythm. Abdomen is soft with bowel sounds present and very active. Abdomen without tenderness or mass. External genitalia normal. He has a dressing over his sacrum/gluteal cleft. There is some superficial erythema there but no open ulcer. Right hip incision is healed nicely without erythema or drainage. He has intact pulses and sensation distally. No edema. No rash. Const: Vital Signs, click to edit/add: Vital Signs - 24 hr 11/28/24 12:49 11/28/24 13:12 11/28/24 13:15 Temperature 97.3 F L Pulse Rate 67 68 Pulse Rate [Left P ulse Oximeter] Pulse Rate [Pulse Oximeter] 64 Respiratory Rate 20 Blood Pressure Blood Pressure [Le ft Upper Arm] 172/82 H Blood Pressure [Ri ght Arm] Pulse Oximetry 98 97 97 [facility] 11/28/24 13:17 11/28/24 13:21 11/28/24 13:22 Temperature Pulse Rate 71 68 65 Pulse Rate [Left P ulse Oximeter] Pulse Rate [Pulse Oximeter] Respiratory Rate Blood Pressure 157/70 H 171/88 H Blood Pressure [Le ft Upper Arm] Blood Pressure [Ri ght Arm] Pulse Oximetry 96 98 99 Oxygen Delivery Me thod 11/28/24 13:30 11/28/24 13:32 11/28/24 13:45 Temperature Pulse Rate 67 70 68 Pulse Rate [Left P ulse Oximeter] Pulse Rate [Pulse Oximeter] Respiratory Rate Blood Pressure 158/72 H Blood Pressure [Le ft Upper Arm] Blood Pressure [Ri ght Arm] Pulse Oximetry 98 98 100 Oxygen Delivery Me thod 11/28/24 13:47 11/28/24 14:44 11/28/24 14:45 Temperature Pulse Rate 71 69 Pulse Rate [Left P ulse Oximeter] Pulse Rate [Pulse Oximeter] Respiratory Rate Blood Pressure 161/75 H Blood Pressure [Le ft Upper Arm] Blood Pressure [Ri ght Arm] Pulse Oximetry 98 95 Oxygen Delivery Co thod 11/28/24 14:50 11/28/24 14:56 11/28/24 15:00 Temperature Pulse Rate 69 69 69 Pulse Rate [Left P ulse Oximeter] Pulse Rate [Pulse Oximeter] Respiratory Rate Blood Pressure 178/82 H Blood Pressure [Le ft Upper Arm] Blood Pressure [Ri ght Arm] Pulse Oximetry 94 97 95 Oxygen Delivery Me thod 11/28/24 15:02 11/28/24 15:15 11/28/24 15:17 Temperature Pulse Rate 69 67 70 Pulse Rate [Left P ulse Oximeter] Pulse Rate [Pulse Oximeter] Respiratory Rate Blood Pressure 183/73 H 200/96 H Blood Pressure [Le ft Upper Arm] Blood Pressure [Ri ght Arm] Pulse Oximetry 95 97 98 Oxygen Delivery Me thod 11/28/24 15:25 11/28/24 15:30 11/28/24 15:33 Temperature Pulse Rate 70 67 67 Pulse Rate [Left P ulse Oximeter] Pulse Rate [Pulse Oximeter] Respiratory Rate Blood Pressure 170/96 H 191/70 H Blood Pressure [Le ft Upper Arm] Blood Pressure [Ri ght Arm] Pulse Oximetry 99 97 98 Oxygen Delivery Me thod 11/28/24 15:34 11/28/24 15:45 11/28/24 15:47 Temperature Pulse Rate 65 64 69 Pulse Rate [Left P ulse Oximeter] Pulse Rate [Pulse Oximeter] Respiratory Rate Blood Pressure 207/88 H Blood Pressure [Le ft Upper Arm] Blood Pressure [Ri ght Arm] Pulse Oximetry 98 97 98 Oxygen Delivery Me thod 11/28/24 16:00 11/28/24 16:02 11/28/24 16:15 Temperature Pulse Rate 69 71 66 Pulse Rate [Left P ulse Oximeter] Pulse Rate [Pulse Oximeter] Respiratory Rate Blood Pressure 196/81 H Blood Pressure [Le ft Upper Arm] Blood Pressure [Ri ght Arm] Pulse Oximetry 100 100 99 Oxygen Delivery Me thod 11/28/24 16:17 11/28/24 16:18 11/28/24 16:47 Temperature 97.4 F L Pulse Rate 73 Pulse Rate [Left P ulse Oximeter] 71 Pulse Rate [Pulse Oximeter] Respiratory Rate 16 Blood Pressure 183/68 H Blood Pressure [Le ft Upper Arm] Blood Pressure [Ri ght Arm] 204/95 H Pulse Oximetry 98 97 Oxygen Delivery Me thod Room Air 11/28/24 18:16 11/28/24 21:15 11/29/24 08:00 Temperature 97.5 F L 97.6 F 96.8 F L Pulse Rate Pulse Rate [Left P ulse Oximeter] 66 68 69 Pulse Rate [Pulse Oximeter] Respiratory Rate 16 18 18 Blood Pressure Blood Pressure [Le ft Upper Arm] Blood Pressure [Ri ght Arm] 177/74 H 167/68 H 153/62 H Pulse Oximetry 97 98 94 Oxygen Delivery Me thod Room Air Room Air Room Air Documenting provider has reviewed patient's vital signs: yes Labs Labs: Laboratory Results - last 24 hr 11/28/24 11/28/24 11/28/24 13:50 14:07 15:15 WBC 13.89 H RBC 3.20 L Hgb 9.9 L Hct 29.5 L MCV 92 MCH 31 MCHC 34 RDW Coeff of Ealn 14.7 Plt Count 378 Neut % (Auto) 72.6 H Lymph % (Auto) 14.5 L [place] % (Auto) 9.4 Eos % (Auto) 2.6 Baso % (Auto) 0.3 Neut # (Auto) 10.10 H Lymph # (Auto) 2.00 [place] # (Auto) 1.30 H Eos # (Auto) 0.40 Baso # (Auto) 0.00 Abs Immat Gran (auto) 0.10 Imm/Tot Granulo (auto) 0.6 Sodium 133 L Potassium 4.4 Chloride 99 Carbon Dioxide 26 Anion Gap 8 BUN 17 Creatinine 1.0 Estimated Creat Clear Estimated GFR 73 Glucose 149 H Lactate 2.1 H Calcium 9.0 Total Bilirubin 0.5 AST 27 ALT 22 Alkaline Phosphatase 89 Troponin I < 0.01 Total Protein 6.1 Albumin 3.6 TSH Urine Color Dark yellow Urine Appearance Clear Urine pH 5.5 Ur Specific Howard 1.015 Urine Protein Negative Urine Glucose (UA) Negative Urine Ketones 1+ A Urine Blood 2+ A Urine Nitrite Negative Urine Bilirubin Negative Urine Urobilinogen 0.2 Ur Leukocyte Esterase Trace A Urine RBC 10-25 A Urine WBC 5-10 A Ur Squamous Epith Cells None Urine Bacteria None SARS-CoV-2 (PCR) Negative SARS-CoV-2 Influenza Type A (PCR) Negative PCR FLU A Influenza Type B (PCR) Negative PCR FLU B RSV (PCR) Negative PCR RSV Lab Acknowledgement 11/28/24 11/29/24 11/29/24 19:53 05:24 09:08 WBC 8.49 RBC 2.83 L Hgb 8.9 L Hct 26.7 L MCV 94 MCH 31 MCHC 33 RDW Coeff of [place]an Plt Count 303 Neut % (Auto) Lymph % (Auto) [place] % (Auto) Eos % (Auto) Baso % (Auto) Neut # (Auto) Lymph # (Auto) [place] # (Auto) Eos # (Auto) Baso # (Auto) Abs Immat Gran (auto) Imm/Tot Granulo (auto) Sodium 133 L Potassium 3.8 Chloride 104 Carbon Dioxide 24 Anion Gap 5 L BUN 11 Creatinine 0.9 Estimated Creat Clear 58.20 Estimated GFR 83 Glucose 113 Lactate 1.7 Calcium 8.4 Total Bilirubin AST ALT Alkaline Phosphatase Troponin I Total Protein Albumin TSH 2.160 Urine Color Urine Appearance Urine pH Ur Specific Howard Urine Protein Urine Glucose (UA) Urine Ketones Urine Blood Urine Nitrite Urine Bilirubin Urine Urobilinogen Ur Leukocyte Esterase Urine RBC Urine WBC Ur Squamous Epith Cells Urine Bacteria SARS-CoV-2 (PCR) Influenza Type A (PCR) Influenza Type B (PCR) RSV (PCR) Lab Acknowledgement Test Added
[2024-11-29] MEDS: INSULIN ASPART 100 UNIT/ML SUBCUT ×3 (12:03→20:46)
[2024-11-29 15:00] VITALS: BP 114/68; PULSE 70; RESP 20; TEMP 36.8; O2SAT 94
[2024-11-29] MEDS: ACETAMINOPHEN 500 MG TABLET 1000 MG PO (15:00)
--- NOTE | 2024-11-29 18:59 | PC.NURSE ---
Nursing Care Hours: [id number] Pt this morning was somnolent in bed, hard to arouse but was able to open eyes when asked. Worked with PT and sat up in chair. Rest of day pt remained alert and responsive. Pt assisted with self cath, technical document writer guiding procedure to maintain sterile technique. Pt appetite increasing. Pt had about 50% of lunch and dinner plus 50% of ensure. VSS. Bandage to coccyx changed. Open sore noted on 11/28/24 no longer visible. Red bilat glute streaks still present. Pt is c/o pain to buttocks while sitting on recliner chair even with gel cushion pad. Changing position every two hours. Ambulating short distances in room. VSS, BP WNL.
[2024-11-29 19:33] VITALS: BP 137/54; PULSE 75; RESP 16; TEMP 36.8; O2SAT 95
[2024-11-29] MEDS: LIDOCAINE 5% PATCH 1 PATCH TRANSDERMA (20:43)
[2024-11-29] MEDS: AMOXICILLIN 250 MG CAPSULE 500 MG PO (20:45)
[2024-11-29] MEDS: OMEPRAZOLE 20 MG CAPSULE DR PO (20:45)
[2024-11-29] MEDS: ROSUVASTATIN CALCIUM 10 MG TABLET PO (20:45)
[2024-11-29] MEDS: SODIUM CHLORIDE 0.9 % (FLUSH) 10 ML SYRINGE 5 ML IVF (20:45)
[2024-11-29 23:00] VITALS: PULSE 72; RESP 14
[2024-11-29 23:06] LABS: Vitamin B12* 612 pg/mL (243-894)
[2024-11-30 00:19] VITALS: BP 177/69; PULSE 72; RESP 14; TEMP 36.6; O2SAT 94
[2024-11-30 03:29] VITALS: BP 165/76; PULSE 71; RESP 16; TEMP 36.8; O2SAT 95
--- NOTE | 2024-11-30 05:09 | PC.NURSE ---
Pt pleasant, alert and oriented. VSS. Pt straight cath?s, done twice throughout shift. Turned and repoed q2h. Mepilex to bottom C/D/I. No BM on shift. Pt in bed, appears to be resting, call light within reach. ?
[2024-11-30 06:50] LABS: Hematocrit* 25.3 % (37.0-53.0); Hemoglobin* 8.4 gm/dL (13.5-17.5); Immature Granulocytes Abs Auto 0.04 K/uL (0.00-0.30); Immature Granulocytes Pct Auto 0.5 %; Lymphocytes Absolute Auto 1.61 K/uL (0.90-2.90); Mean Corpuscular HGB Conc 33 gm/dL (32-36); Mean Corpuscular Hemoglobin 31 pg (26-34); Mean Corpuscular Volume 94 fL (80-100); RDW Coefficient of Variation % 15.1 % (11.5-15.5); Red Blood Count* 2.68 m/uL (4.30-5.90); White Blood Count* 7.73 K/uL (4.50-11.00)
[2024-11-30 06:58] LABS: Slide Review Reflex No
[2024-11-30 07:05] LABS: Chloride* 104 mmol/L (96-114); Potassium* 3.7 mmol/L (3.6-5.1); Sodium* 134 mmol/L (135-149)
[2024-11-30 07:08] LABS: Anion Gap 5 mEq/L (7-15); Blood Urea Nitrogen* 12 mg/dL (7-30); Carbon Dioxide* 25 mmol/L (20-32); Creatinine* 0.9 mg/dL (0.5-1.5); Est. Creatinine Clearance* 58.20; Estimated Glomerular Filt Rate 83 ml/min
[2024-11-30 07:09] LABS: Calcium* 8.4 mg/dL (8.4-10.6); Glucose* 144 mg/dL (60-115)
[2024-11-30 07:30] VITALS: BP 167/83; PULSE 71; PULSE 80; RESP 16; TEMP 36.4; O2SAT 95
[2024-11-30] MEDS: PROPRANOLOL 20 MG TABLET PO (08:27)
[2024-11-30] MEDS: ASPIRIN 81 MG TABLET EC PO (08:27)
[2024-11-30] MEDS: CLOPIDOGREL 75 MG TABLET PO (08:27)
[2024-11-30] MEDS: AMOXICILLIN 250 MG CAPSULE 500 MG PO (08:28)
[2024-11-30] MEDS: OMEPRAZOLE 20 MG CAPSULE DR PO (08:28)
[2024-11-30] MEDS: ISOSORBIDE MONONITRATE ER 30 MG TAB PO (08:28)
[2024-11-30] MEDS: LOSARTAN POTASSIUM 50 MG TABLET PO (08:28)
[2024-11-30] MEDS: INSULIN ASPART 100 UNIT/ML SUBCUT ×2 (08:29→13:04)
[2024-11-30] MEDS: SODIUM CHLORIDE 0.9 % (FLUSH) 10 ML SYRINGE 5 ML IVF (08:33)
[2024-11-30] MEDS: SITAGLIPTIN PHOSPHATE 50 MG TABLET 100 MG PO (09:12)
[2024-11-30] MEDS: ACETAMINOPHEN 500 MG TABLET 1000 MG PO (09:31)
--- NOTE | 2024-11-30 10:11 | PM.DS1 ---
DS: Providers Provider Date Seen: 11/30/24 Date of admission: 11/29/24 10:09 Primary care physician: Kevin Nelson MD Admitting Clinician: Jocelynn Proctor MD Attending Physician on discharge: Rosales Brower MD Date of Discharge: 11/30/24 DS: Diagnosis Discharge Diagnosis (1) Acute metabolic encephalopathy: Status: Resolved Problem details: Clinically improved in the last day. Patient appeared to have metabolic encephalopathy possibly due to multiple factors. This appears to be a hypoactive delirium. I suspect some underlying cognitive impairment. His chronic UTI secondary to his chronic catheterization may be playing a role though he is not clinically improved with antibiotics. Family is concerned that he is in giving up. (2) Malnutrition: Status: Acute Problem details: Appetite and eating has improved in the last day. Patient appears to have lost about 8 kg in the past 2 weeks. Family reports very poor oral intake for the last 2 weeks. Closely monitor and supplement as needed. Both mental status changes and duodenitis likely contribute to this. (3) Duodenitis: Status: Acute Problem details: - incidental finding on CT showing mild proximal duodenal wall thickening, concerning for duodenitis. No free intraperitoneal air or drainable fluid collections - continue PPI as started in ED - H pylori stool ordered Consider outpatient EGD in 1-2 months or urgent EGD if acute blood loss anemia (4) Skin maceration: Status: Acute Problem details: - gluteal cleft - appears superficial currently. No evidence of acute infection or cellulitis. - skin cares, Mepilex, offloading (5) Essential tremor: Status: Acute Problem details: - new diagnosis on 11/13/2024, Propanolol initiated 11/15/24. Increased to b.i.d.. It appears to be helping tremor (6) Impairment of balance: Status: Acute Problem details: - balance difficulties due to peripheral neuropathy prior to hip fracture - PT/OT (7) Cognitive impairment: Status: Acute Problem details: Patient has had evidence of cognitive impairment in addition to his hypoactive delirium and metabolic encephalopathy. No formal testing was done on this admission. Recommend outpatient follow-up went back to baseline. (8) Peripheral neuropathy: Status: Acute Problem details: Chronic. Unknown cause. Normal vitamin B12 level (9) Anemia: Status: Acute Problem details: - chronic, normocytic, mild Primarily due to blood loss anemia from hip fracture. Concern for upper GI bleeding with duodenitis. No obvious signs of GI bleeding. Follow hemoglobin closely. Obtain EGD if evidence of upper GI bleeding (10) Stage 3 chronic kidney disease: Status: Acute Problem details: - Creatinine 1.0, baseline, stable (11) Diabetes mellitus type 2, controlled: Status: Acute Problem details: - Hemoglobin A1c on September 05 was 7.5 Monitoring diabetes medicines and oral intake and adjusting therapies to blood sugar. (12) Atonic bladder: Status: Acute Problem details: - self catheterization at home QID, vallecillo placed 11/13 - continue self catheterization (13) History of coronary artery stent placement: Status: Acute Problem details: - total of 5 coronary stents placed, most recently 05/17 in the RCA with EF 60% at that time; had restenosis of a stent in his diagonal which was not amenable to intervention - [employer] recommends clopidogrel and aspirin for 1 year (until April 2025), followed by Clopidogrel indefinitely - continued on admission (14) Coronary artery disease: Status: Acute Problem details: - recurrent interventions with coronary stents (2006, 2013, 2016 angioplasty, 2019, 2021, 2024). Continue Plavix and aspirin (15) Femoral neck fracture: Status: Acute Problem details: - s/p mechanical fall 11/13/2024. No apparent surgical complications - Right hip bipolar hemiarthroplasty with Dr. Mueller on 11/14/24 - at [facility] for rehab (16) Hypertension: Status: Acute Problem details: - continue home medications. Blood pressure has been consistently elevated during his hospital stay DS: Summary Hospital Course Hospital Course: Pratik Madera is a 84 year old male past medical history significant for coronary artery disease status post stenting 6 months ago, diabetes mellitus, peripheral neuropathy, atonic bladder with self catheterization, hypertension, status post Right hip bipolar hemiarthroplasty with Dr. Mueller on 11/14/24 following a fall on 11/13/2024 is readmitted to the hospital for acute altered mental status. Patient is unable to give much history today so patient history is obtained from family. He was discharged from the hospital to [address] [place] [address] for rehab on November 18. At discharge he had his Vallecillo catheter still in place. Since discharge he has been eating poorly. He has been mostly laying in bed sleeping and not engaged in conversation. He became acutely confused last week including some hallucinations. Because of this he had a urine culture obtained which showed pansensitive E coli growing in his urine. His Vallecillo catheter is removed and he was return to t.i.d. straight cath for management of his atonic bladder. He was started on ceftriaxone. Over the weekend he remained confused and withdrawn and not eating. Because of this he was brought to the emergency room for evaluation. He has not had any fever. He has not had any vomiting. His bowels are apparently working fairly normally. His reports specifically that he was having some visual hallucinations. Often his speech was difficult to understand and he seemed quite confused. Today he is less confused but unable to give much history of recent events. He does know he is in the hospital but does not know why he is here. He tells me he has no appetite. He is not having any nausea or abdominal pain. 11/30/2024: Patient has significantly improved in the last day. Yesterday he began to eat more. He was more alert and interactive. Still having episodes of confusion. Status at Discharge Functional status at discharge: uses cane/walker Overall status at discharge: patient is progressing back to baseline Time Spent with Patient Time attestation: Total time spent providing and/or coordinating discharge services: 45 minutes Exam Narrative: Exam Narrative: He is alert, pleasant and in no distress. He is observed to eat most of his breakfast. Speech is normal. He is able to give history of recent events excluding the episode delirium over the past few days. Breathing is unlabored. Abdomen is soft without tenderness. Const: Vital Signs, click to edit/add: Vital Signs - 24 hr 11/29/24 11:00 11/29/24 15:00 11/29/24 15:00 Temperature 98.3 F Pulse Rate [Left P ulse Oximeter] 68 70 70 Respiratory Rate 18 20 20 Blood Pressure [Le ft Arm] 114/68 Blood Pressure [Ri ght Arm] 124/58 L Pulse Oximetry 96 94 Oxygen Delivery Me thod Room Air Room Air 11/29/24 19:33 11/29/24 23:00 11/30/24 00:19 Temperature 98.2 F 97.8 F Pulse Rate [Left P ulse Oximeter] 75 72 72 Respiratory Rate 16 14 14 Blood Pressure [Le ft Arm] 137/54 L 177/69 H Blood Pressure [Ri ght Arm] Pulse Oximetry 95 94 Oxygen Delivery Me thod Room Air 11/30/24 03:29 11/30/24 07:30 11/30/24 07:30 Temperature 98.2 F 97.6 F Pulse Rate [Left P ulse Oximeter] 71 71 80 Respiratory Rate 16 16 16 Blood Pressure [Le ft Arm] 165/76 H 167/83 H Blood Pressure [Ri ght Arm] Pulse Oximetry 95 95 Oxygen Delivery Me thod Room Air Room Air Documenting provider has reviewed patient's vital signs: yes DS: Data Data Completed and Pending Completed studies during hospitalization: Procedures Replacement of Right Hip Joint, Femoral Surface with Metal Synthetic Substitute, Uncemented, Open Approach (11/13/24) Labs on day of discharge: Labs from last 24 hours 11/30/24 11/29/24 06:13 05:24 WBC 7.73 RBC 2.68 L Hgb 8.4 L Hct 25.3 L MCV 94 MCH 31 MCHC 33 RDW Coeff of Elan 15.1 Plt Count 310 Neut % (Auto) 62.7 Lymph % (Auto) 20.8 Crockett % (Auto) 10.7 Eos % (Auto) 4.7 Baso % (Auto) 0.6 Neut # (Auto) 4.84 Lymph # (Auto) 1.61 Crockett # (Auto) 0.80 Eos # (Auto) 0.36 Baso # (Auto) 0.05 Abs Immat Gran (auto) 0.04 Imm/Tot Granulo (auto) 0.5 Sodium 134 L Potassium 3.7 Chloride 104 Carbon Dioxide 25 Anion Gap 5 L BUN 12 Creatinine 0.9 Estimated Creat Clear 58.20 Estimated GFR 83 Glucose 144 H Calcium 8.4 Vitamin B12 612 Preliminary micro results at discharge 11/28/24 14:07 Blood Culture - Preliminary Blood NO GROWTH AFTER 24 HOURS 11/28/24 15:15 Urine Culture - Preliminary Urine Catheterized No growth. Imaging CT scan - abdomen: Radiologist's impression: INDICATION: Confusion, weakness, left lower quadrant tenderness. TECHNIQUE: CT abdomen and pelvis acquired with 100 cc Omnipaque 350 IV contrast. COMPARISON: June 13, 2020. FINDINGS: Lower chest: Scattered atelectasis. Liver: Unremarkable. Normal in size and attenuation. No suspicious masses. Gallbladder and bile ducts: Cholelithiasis without CT evidence of acute cholecystitis. Pancreas: Fatty atrophy. No mass or inflammation. Spleen: Unremarkable. Normal in size. No masses. Adrenal glands: Unremarkable. No nodules. Kidneys: Tiny cortical hypodensities, too small to characterize.. No suspicious masses, stones, or hydronephrosis. GI tract: Mild proximal duodenal wall thickening. Fluid throughout the colon and rectum. Colonic diverticulosis without diverticulitis. No bowel obstruction. Normal appendix. Vasculature: Aortoiliac arterial calcifications. Abdominal aorta is normal in caliber. Mesenteric arteries are patent. Lymph nodes: No lymphadenopathy. Peritoneum/Abdominal Wall: Unremarkable. No sign of mass or infiltration. No free air or significant free fluid. Pelvis: Unremarkable. Bones: Right hip arthroplasty without hardware complication. IMPRESSION: Fluid throughout the colon and rectum which could suggest diarrheal illness/low-grade colitis in the appropriate clinical setting. No bowel obstruction, or drainable fluid collections. Mild proximal duodenal wall thickening, concerning for duodenitis. No free intraperitoneal air or drainable fluid collections. CT scan - head: Radiologist's impression: INDICATION: Altered mental status, recent anticoagulation. TECHNIQUE: Noncontrast CT of the head with multiplanar reconstruction utilizing bone and soft tissue algorithms. COMPARISON: CT head dated 07/31/2018. FINDINGS: No acute intracranial abnormality. Scattered hypoattenuation within the supratentorial white matter typical of chronic small vessel ischemic changes. Haji-white matter differentiation is maintained. Mild diffuse parenchymal volume loss. The ventricles are proportional to the sulci. No abnormal extra-axial fluid collection is identified. Intact calvarium and skull base. Bilateral pseudophakia. The imaged paranasal sinuses and mastoid air cells are clear. IMPRESSION: No acute intracranial hemorrhage or mass effect. Chest x-ray: Radiologist's impression: Indication: WEAKNESS Technique: AP view of the chest. Comparison: 11/13/2024. Findings: Small lung volumes. Mildly elevated right hemidiaphragm. Normal cardiomediastinal silhouette aside from coronary artery stent. No focal consolidation, pleural effusions, or visualized pneumothorax. Impression: No acute cardiopulmonary disease. Discharge Plan Discharge Disposition: [facility] Date of Admission: 11/29/24 10:09 Attending Provider on Discharge: Pratik Brower Primary Care Provider: Kevin Nelson Discharge Medications: New omeprazole 20 mg Capsule,Delayed Release(Dr/Ec) 20 mg PO BID Qty: 60 0RF amoxicillin 500 mg capsule 500 mg PO BID Qty: 10 0RF Continued metformin 1,000 mg tablet 1,000 mg PO BID ranolazine 500 mg tablet extended release 12 hr 500 mg PO Q12H Januvia 100 mg tablet 100 mg PO DAILY aspirin 81 mg tablet 81 mg PO DAILY Qty: 30 2RF Rx Instructions: restart ASPIRIN and Plavix on 11/20/24 acetaminophen 500 mg Tablet 1,000 mg PO Q8H Qty: 30 0RF lidocaine 5 % Adhesive Patch,Medicated 1 patch transdermal Q24H Qty: 30 0RF Rx Instructions: R hip, do not place over incision docusate sodium 100 mg Capsule 100 mg PO BID PRN (Reason: Constipation) Qty: 60 0RF ondansetron 4 mg tablet,disintegrating 4 mg PO Q4H PRN insulin aspart U-100 [Novolog U-100 Insulin aspart] 100 unit/mL solution 1 sliding scale dose subcut USEASDIRECTD nitrofurantoin monohyd/m-cryst [Macrobid] 100 mg capsule 100 mg PO BID Rx Instructions: must administer with a meal/food insulin glargine 100 unit/mL (3 mL) insulin pen 10 unit subcut DAILY@07 bisacodyl 10 mg suppository 10 mg VA DAILY PRN sennosides-docusate sodium [Senna-S] 8.6-50 mg tablet 2 tab-cap PO BID PRN (Reason: constipation) Rx Instructions: Hold medication if experiencing loose stools. clopidogrel 75 mg tablet 75 mg PO DAILY glipizide 5 mg tablet 5 mg PO BIDWM isosorbide mononitrate 30 mg tablet extended release 24 hr 30 mg PO DAILY losartan 50 mg tablet 50 mg PO DAILY nitroglycerin 0.4 mg tablet, sublingual 0.4 mg sublingual Q5M PRN rosuvastatin 20 mg tablet 10 mg PO HS Patient Comments: TAKE 1/2 TABLET BY MOUTH EVERY EVENING Changed propranolol 20 mg Tablet 20 mg PO BIDWM Qty: 60 0RF Discontinued oxycodone 5 mg tablet 2.5 mg PO Q4H MDD 6 PRN (Reason: pain) Discharge Orders: Discharge Order (Routine); Ordered 11/30/24 Ordered By: Pratik Brower Activity Level: Up with assist and Use Walker Discharge Diet: Heart Healthy (2 gm sodium, low fat) Follow Up Appointments: Kevin Nelson MD [Primary Care Provider, Family Practice] Forms: Patient Belongings, MyHealth Info Instructions Admit to: SNF Discharge Potential: Good Length of Stay: <30 days Can use facility standing orders?: Yes Code Status: Full Code TEDs: Bilateral Knee Rehab Potential: Good Therapy: Physical Therapy and Occupational Therapy Therapy Orders: Evaluate and Treat Oxygen: No Urinary Catheter: Yes Glucose Checks: before meals and at bedtime Lab Orders: CBC on ThursdayDecember 05.
--- NOTE | 2024-11-30 10:59 | PC.SOCIAL ---
Addendum entered by JANETH Dickerson 11/30/24 12:40: Discharge planning: pole frame construction worker also sent nursing notes via secure email to Kyle at [facility]. Social work to follow-up as needed. Addendum entered by JANETH Dickerson 11/30/24 12:33: Discharge planning: pole frame construction worker sent the pt's discharge orders via secure email to Flavio at [facility]. Non-emergent EMS plans to pick-up the pt around 1pm. pole frame construction worker has notified [facility] of the transport time. pole frame construction worker also went over the The Important Message from Medicare form with the pt's , Yamilex(she just signed the form yesterday), and she had no concerns with the pt discharging back to [facility] today and does not want to appeal the pt's discharge. Social work to follow-up as needed. Original Note: Discharge planning: The pt is ready to discharge back to [facility] today. pole frame construction worker informed Flavio at [facility] and sent them updated notes via secure email. Pt's family prefers that he transport via non-emergent EMS. Pt's willingly signed the non-emergent EMS wheelchair transportation form and this worker gave it to the charge nurse on duty. Social work to follow-up as needed.
[2024-11-30 11:51] VITALS: BP 139/76; PULSE 81; RESP 16; TEMP 36.4; O2SAT 98
[2024-11-30 12:05] LABS: Fecal Occult Blood* Positive (Negative)
[2024-11-30 12:18] LABS: H pylori Ag Stool* Negative (Negative)
--- NOTE | 2024-11-30 14:17 | PC.NURSE ---
Addendum entered by Sebastian Pop RN 12/01/24 11:27: straight cath 1 time not 2 Original Note: discharge. Pt has been very pleasant, he is alert and oriented x2 off on date and year. . VSS. Pt straight cath?s, done twice throughout shift. Turned and repoed q2h. Mepilex to bottom C/D/I. he had a BM on this shift. stool samples where sent, he is up with 1 assist. walker and GB. he is a fall risk and alarms are on. ems left with pt @ [id number]. SL was d/c patent.,
== END 2024-11-30 14:15 | DRG 70 ==
LOC: ED 15:56 → MEDSURG 16:27
PROVIDERS: Physician Assistant; Admitting Provider Student in an Organized Health Care Education/Training Program; Emergency Provider Emergency Medicine; PCP Surgery; Visit Provider Family Medicine
DX: G93.41 Metabolic encephalopathy (principal); E43 Unspecified severe protein-calorie malnutrition; N39.0 Urinary tract infection, site not specified; T83.511A Infection and inflammatory reaction due to indwelling urethral catheter, initial encounter; B96.20 Unspecified Escherichia coli [E. coli] as the cause of diseases classified elsewhere; N31.2 Flaccid neuropathic bladder, not elsewhere classified; K29.80 Duodenitis without bleeding; I12.9 Hypertensive chronic kidney disease with stage 1 through stage 4 chronic kidney disease, or unspecified chronic kidney disease; E11.22 Type 2 diabetes mellitus with diabetic chronic kidney disease; N18.30 Chronic kidney disease, stage 3 unspecified; E11.42 Type 2 diabetes mellitus with diabetic polyneuropathy; D50.0 Iron deficiency anemia secondary to blood loss (chronic); Z79.84 Long term (current) use of oral hypoglycemic drugs; Z96.641 Presence of right artificial hip joint; G25.0 Essential tremor; Z68.26 Body mass index [BMI] 26.0-26.9, adult; I25.10 Atherosclerotic heart disease of native coronary artery without angina pectoris
CPT/HCPCS: 36415; 51702; 70450; 71045; 74177; 80048; 80053; 81001; 82270; 82607; 82962; 83605; 84443; 84484; 85025; 85027; 87040; 87081; 87086; 87338; 87493; 87631; 93005; 97110; 97116; 97162; 97165; 97530; 97535; 99284; 99285; A9270; G0378; J0696; J1815; J2470; J7030; Q9967

== ENCOUNTER 2024-11-30 14:05 | Outpatient (CLI) | payer MEDICARE, SELFPAY | END 2024-11-30 14:06 | disposition home or self-care (01) | LOC: AMB 12-01 13:40 | PROVIDERS: PCP Surgery; Visit Provider Emergency Medicine | DX: G93.41 Metabolic encephalopathy (principal); E46 Unspecified protein-calorie malnutrition; K29.80 Duodenitis without bleeding | CPT/HCPCS: A0425; A0428 ==

== ENCOUNTER 2025-01-12 15:21 | Inpatient (IN) | payer MEDICARE, SELFPAY ==
[2025-01-12] VITALS (20 sets, daily range): BP systolic 145–173; BP diastolic 71–95; PULSE 67–95; RESP 10–25; TEMP 36.3–36.6; O2SAT 89–98; BMI 25.5
--- NOTE | 2025-01-12 16:05 | ED.GENADULT ---
HPI - General Adult General Date Seen: 01/12/25 Chief complaint: Altered Mental Status Stated complaint: UTI Time Seen by Provider: 01/12/25 15:55 History of Present Illness HPI narrative: 84-year-old gentleman presenting to the ER today from his home accompanied by his and daughter. His family provide most of his history for him. They are concerned that he probably has a UTI. He has a past medical history of atonic bladder and has been doing urinary self catheterization for the past 7 years. He has had recent UTIs, once in September, another 1 in October, and a 3rd in November. The 1st UTI apparently occurred after use in the hospital for getting his right hip replaced. He had 2 more UTIs while he was doing his rehab at [address] [place] [address]. He did have an indwelling Lora catheter while in the hospital and while at [facility]. Since discharge she has been doing self catheterization again. He had finally been discharged from [address] [place] [address] couple of weeks ago and has been home with his . His family notes that he does have recent onset of tremor a few months ago. While he was in the hospital he was tried initially on propranolol which was temporarily effective but then may have caused some nausea so it was decreased and ultimately stopped. He was restarted on the propranolol by his primary care provider after he got out of [facility] but family notes that with it really did not help his tremor at that time. Because of his increasing tremor he is no longer able to self catheterize. His has been assisting him with his self catheterization. For the past few days he has had a little bit of increased weakness and some confusion. For instance last night the patient came from his bedroom and came and sat in living room without any clothes on. This is a very unusual behavior for him. He has not had any known fever. No cough. He is not complaining of any shortness of breath. No chest pain. He has been mildly nauseous and has had a very poor appetite and not much oral intake. says he had been drinking pretty well but today is not drinking much. She notes that when she does his self catheterization she is getting fairly small volumes of urine out and that the urine looks concentrated. No blood. She recalls that when he was in the hospital at [facility] prior to discharge and was doing self catheterization he was getting out 300-500 mL per attempt. Per medical record.... Urine culture 10/2 grew E coli, pansensitive. Urine culture from 10/24 grew pansensitive E coli. Related Data Home Medications ?Medication ?Instructions ?Recorded ?Confirmed clopidogrel 75 mg tablet 75 mg PO DAILY 10/25/21 01/12/25 glipizide 5 mg tablet 5 mg PO BIDWM 10/25/21 01/12/25 isosorbide mononitrate 30 mg 30 mg PO DAILY 10/25/21 01/12/25 tablet,extended release 24 hr losartan 50 mg tablet 50 mg PO DAILY 10/25/21 01/12/25 nitroglycerin 0.4 mg sublingual 0.4 mg sublingual Q5M PRN 10/25/21 01/12/25 tablet rosuvastatin 20 mg tablet 10 mg PO HS 10/25/21 01/12/25 metformin 1,000 mg tablet 1,000 mg PO BID 11/14/24 01/12/25 ranolazine 500 mg tablet,extended 500 mg PO Q12H 11/14/24 01/12/25 release,12 hr Previous Rx's ?Medication ?Instructions ?Recorded aspirin 81 mg tablet 81 mg PO DAILY #30 tabs 11/17/24 docusate sodium 100 mg capsule 100 mg PO BID PRN Constipation #60 11/17/24 caps omeprazole 20 mg capsule,delayed 20 mg PO BID #60 caps 11/30/24 release Allergies Allergy/AdvReac Type Severity Reaction Status Date / Time atenolol Allergy Unknown Verified 01/12/25 15:35 atorvastatin Allergy Unknown Myalgia Verified 01/12/25 15:35 lisinopril AdvReac Unknown Cough Verified 01/12/25 15:35 metoprolol AdvReac Unknown Headache Verified 01/12/25 15:35 [facility] Medical History (Updated 01/12/25 @ 20:11 by Shakir Del Rio MD) Acute UTI ?N39.0 - Urinary tract infection, site not specified (ICD-10) Cognitive impairment ?R41.89 - Other symptoms and signs involving cognitive functions and awareness (ICD-10) Essential tremor ?G25.0 - Essential tremor (ICD-10) Impairment of balance ?R26.89 - Other abnormalities of gait and mobility (ICD-10) Peripheral neuropathy ?G62.9 - Polyneuropathy, unspecified (ICD-10) Hyperlipidemia ?E78.5 - Hyperlipidemia, unspecified (ICD-10) Hypertension ?I10 - Essential (primary) hypertension (ICD-10) Anemia ?D64.9 - Anemia, unspecified (ICD-10) Stage 3 chronic kidney disease ?N18.30 - Chronic kidney disease, stage 3 unspecified (ICD-10) Diabetes mellitus type 2, controlled ?E11.9 - Type 2 diabetes mellitus without complications (ICD-10) Atonic bladder ?N31.2 - Flaccid neuropathic bladder, not elsewhere classified (ICD-10) Peripheral vascular disease ?I73.9 - Peripheral vascular disease, unspecified (ICD-10) Coronary artery disease ?I25.10 - Atherosclerotic heart disease of [place] coronary artery without angina pectoris (ICD-10) Surgical History (Updated 12/29/24 @ 10:16 by Michael Mueller MD) 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 He does not smoke. He rarely drinks alcohol. Code status is DNR. is healthcare power of title attorney. What is your current living situation?: I presently have a place to live Problems where you live: no known problems In the past 12 months, utilities in danger of being shut off: no In past 12 months, lack of transportation kept you from medical appts, meetings, work, or getting things needed for daily living: no In the past 12 mos, have been you worried that your food would run out before you had money to buy more?: never true In the past 12 mos, the food you bought just didn't last and you didn't have money to buy more?: never true Highest level of school completed/degree received: 8th grade Smoking Status: Former smoker How often do you have a drink containing alcohol: never AUDIT-C Alcohol total score: 0 Non-prescribed substance use: denies use Caffeine: Yes How often does anyone, including family, friends and others, physically hurt you: never How often does anyone, including family, friends and others, insult or talk down to you: never How often does anyone, including family, friends and others, threaten you with harm: never How often does anyone, including family, friends and others, scream or curse at you: never service: No Exam Narrative: Exam Narrative: Constitutional: Appears well-developed and well-nourished. Alert. Conversant. Non toxic. HENT: Head: Atraumatic. Nose: Nose normal. Mouth/Throat: Oral mucosa is clear . Mucous membranes are dry but not desiccated or cracked.. no trismus. Pharynx normal. Tonsils symmetric. No tonsillar enlargement, erythema, or exudate. Eyes: Conjunctivae normal. EOM normal. Pupils equal, round, and reactive to light. No scleral icterus. Neck: Normal range of motion. Neck supple. No tracheal deviation present. No JVD Cardiovascular: Normal rate, regular rhythm. No gallop. No friction rub. No murmur heard. Symmetric radial artery pulses Pulmonary/Chest: Effort normal. No stridor. No respiratory distress. No wheezes. No rales. No rhonchi . No tenderness. Abdominal: Soft. Bowel sounds normal. No distension. No mass. No tenderness. No rebound. No guarding. No suprapubic tenderness. No CVA tenderness. Musculoskeletal: RUE: Normal range of motion. No tenderness. No deformity LUE: Normal range of motion. No tenderness. No deformity RLE: Normal range of motion. No edema. No tenderness. No deformity LLE: Normal range of motion. No edema. No tenderness. No deformity Neurological: Alert and oriented to person, place, and time. Normal strength. CN II-VII intact. No sensory deficit. GCS eye subscore is 4. GCS verbal subscore is 5. GCS motor subscore is 6. Normal coordination bilateral intention tremor. No focal deficits. Able to sit up with light assist of 1 person. Skin: Skin is warm and dry. No rash noted. No pallor. Normal capillary refill. Psychiatric: Normal mood. Normal affect. Polite. Const: Vital Signs, click to edit/add: Vital Signs - 24 hr 01/12/25 15:31 01/12/25 18:34 01/12/25 18:45 Temperature 97.9 F Pulse Rate 67 79 Pulse Rate [Pulse Oximeter] 95 Respiratory Rate 16 Blood Pressure Blood Pressure [Ri ght Upper Arm] 170/95 H Pulse Oximetry 98 96 96 Oxygen Delivery Me thod Room Air 01/12/25 18:48 01/12/25 19:00 Temperature Pulse Rate 76 89 Pulse Rate [Pulse Oximeter] Respiratory Rate 12 Blood Pressure 150/79 H Blood Pressure [Ri ght Upper Arm] Pulse Oximetry 95 95 Oxygen Delivery Me thod Room Air Course Vital Signs Vital signs: Initial Vital Signs Temperature 97.9 F 01/12/25 15:31 Temperature Source Temporal Artery Scan 01/12/25 15:31 Pulse Rate 95 01/12/25 15:31 Pulse Rhythm Regular 01/12/25 15:31 Pulse Strength 3+ Normal 01/12/25 15:31 Respiratory Rate 16 01/12/25 15:31 Blood Pressure 170/95 H 01/12/25 15:31 Blood Pressure Mean 120 H 01/12/25 15:31 Blood Pressure Position Sitting 01/12/25 15:31 Pulse Oximetry 98 01/12/25 15:31 Oxygen Delivery Method Room Air 01/12/25 15:31 Vital Signs Temperature 97.9 F 01/12/25 15:31 Pulse Rate 95 01/12/25 15:31 Respiratory Rate 16 01/12/25 15:31 Blood Pressure 170/95 H 01/12/25 15:31 Pulse Oximetry 98 01/12/25 15:31 Oxygen Delivery Method Room Air 01/12/25 15:31 Temperature 97.9 F 01/12/25 15:31 Pulse Rate 89 01/12/25 19:00 Respiratory Rate 12 01/12/25 18:48 Blood Pressure 150/79 H 01/12/25 18:48 Pulse Oximetry 95 01/12/25 19:00 Oxygen Delivery Method Room Air 01/12/25 18:48 Medications Administered Medications: Generic Name Dose Route Start Last Admin Trade Name Nai PRN Reason Stop Dose Admin Sodium Chloride 1,000 mls @ 1,000 mls/hr 01/12/25 19:15 01/12/25 19:42 0.9 % Sodium Chloride 1000 Ml IV 01/12/25 20:14 Infused .Q1H MESSI Infusion Discontinued Medications Generic Name Dose Route Start Last Admin Trade Name Nai PRN Reason Stop Dose Admin Sodium Chloride 1,000 mls @ 1,000 mls/hr 01/12/25 16:15 01/12/25 17:54 0.9 % Sodium Chloride 1000 Ml IV 01/12/25 17:14 Infused .Q1H MESSI Infusion Lactated Ringer's 1,000 mls @ 1,000 mls/hr 01/12/25 16:53 01/12/25 18:24 Lactated Ringers 1000 Ml IV 01/12/25 17:52 Not Given .Q1H ONE Calcium Gluconate/Sodium Chloride 1,000 mg in 50 mls @ 100 mls/hr 01/12/25 17:52 01/12/25 19:12 Calcium Gluc 1,000mg/50 Ml IVPB 01/12/25 18:21 Infused ONCE ONE Infusion Magnesium Sulfate 2 gm in 50 mls @ 25 mls/hr 01/12/25 17:53 01/12/25 18:37 Magnesium Iv IVPB 01/12/25 19:52 25 mls/hr ONCE ONE Administration Ondansetron HCl 4 mg 01/12/25 16:03 01/12/25 16:49 Ondansetron 2 Mg/Ml Inj IVP 01/12/25 16:04 4 mg ONCE ONE Administration Medical Decision Making [facility] Narrative Medical decision making narrative: Very pleasant 84-year-old gentleman presenting to the ER from home with his and daughter with concern that he has worsening generalized weakness, , poor appetite, decreased oral intake, mild altered mental status/nonfocal confusion. Symptoms are reminiscent to his family members of arm urinary tract infection. He has had recurrent UTIs lately, likely related to self catheterization for atonic bladder. We did place a Lora catheter here in the ER and obtain urinalysis and is actually normal today. No clear evidence for UTI. He is not febrile. White blood cell count is normal. No clear evidence for other infection. He is not having any abdominal pain to suggest intra-abdominal infection or bowel obstruction. Venous lactic acid is mildly elevated at 2.8. Improving down to 2.0 after 1 L of saline. Kidney function is normal. Sodium is normal. Potassium is normal. However he does have fairly marked hypocalcemia with a total calcium of 6.4. When corrected for albumin this would calculate up to 6.7. Ionized calcium is low at 0.74. EKG has nonspecific changes. QTC is slightly prolonged at 5:47 a.m.. Other labs show phosphorus elevated at 4.8 and magnesium quite low at 0.4. Patient received IV calcium gluconate and IV magnesium sulfate. Repeat labs after 1 amp of calcium gluconate and 2 g of Mag sulfate show improving numbers. Ionized calcium is up to 0.99 and total serum magnesium is up to 0.8. I have ordered additional electrolyte supplements for this patient. So far we have not experienced any significant cardiac arrhythmias from this patient's marked electrolyte disturbances. He continues to be stable on a cardiac cath lab technologist. Nonetheless requires hospitalization. We will continue to replete his dangerously low electrolytes He will clearly require admission for electrolyte repletion and cardiac monitoring. Discussed this with the patient and their family. At this hour there are no open beds here in [facility]. We anticipate that there will be an open bed in about 3 or 4 hours at 11:00 p.m.. Patient and his family strongly prefer to be admitted here in [place] and they do not want to transfer. Discussed with our hospitalist, Dr. Stevens, who graciously accepts. Patient will board here in the ER until a bed on the medical floor is available. Discussed with my ER partner, Dr. Hooper who will oversee his care in the ER until he goes to the floor. Lab Data Labs: Lab Results 01/12/25 01/12/25 01/12/25 Range/Units 16:21 16:39 17:01 WBC 5.85 (4.50-11.00) K/uL RBC 3.87 L (4.30-5.90) m/uL Hgb 11.9 L (13.5-17.5) gm/dL Hct 35.2 L (37.0-53.0) % MCV 91 (80-100) fL MCH 31 (26-34) pg MCHC 34 (32-36) gm/dL RDW Coeff of [place] 13.4 (11.5-15.5) % Plt Count 172 (140-440) K/uL Neut % (Auto) 52.1 (42.0-72.0) % Lymph % (Auto) 33.3 (20-44) % [place] % (Auto) 10.9 (0.0-11.0) % Eos % (Auto) 3.2 (0.0-7.0) % Baso % (Auto) 0.3 (0.0-3.0) % Neut # (Auto) 3.04 (1.7-7.0) K/uL Lymph # (Auto) 1.95 (0.90-2.90) K/uL [place] # (Auto) 0.60 (0.00-0.90) K/UL Eos # (Auto) 0.19 (0.00-0.50) K/uL Baso # (Auto) 0.02 (0.00-0.30) K/uL Abs Immat Gran (auto) 0.01 (0.00-0.30) K/uL Imm/Tot Granulo (auto) 0.2 % Sodium 137 (135-149) mmol/L Potassium 4.3 (3.6-5.1) mmol/L Chloride 100 (96-114) mmol/L Carbon Dioxide 22 (20-32) mmol/L Anion Gap 15 (7-15) mEq/L BUN 11 (7-30) mg/dL Creatinine 0.9 (0.5-1.5) mg/dL Estimated Creat Clear 56.48 Estimated GFR 83 ml/min Glucose 139 H (60-115) mg/dL Lactate 2.8 H (0.5-1.9) mmol/L Calcium 6.4 L (8.4-10.6) mg/dL Ionized Calcium Parul (1.11-1.30) mmol/L Phosphorus (2.5-4.5) mg/dL Magnesium (1.5-2.6) mg/dL Total Bilirubin 0.8 (0.1-1.5) mg/dL AST 37 H (12-35) U/L ALT 19 (4-50) U/L Alkaline Phosphatase 38 L (40-150) U/L Troponin I < 0.01 (0.01-0.04) ng/mL Total Protein 5.9 L (6.0-8.3) g/dL Albumin 3.7 (3.3-5.0) g/dL Lipase 46 (23-300) U/L Urine Color Bridget A (Yellow) Urine Appearance Clear (Clear) Urine pH 5.0 (5.0-8.5) Ur Specific [place] >= 1.030 (1.000-1.030) Urine Protein 1+ A (Negative) Urine Glucose (UA) Negative (Negative) Urine Ketones 1+ A (Negative) Urine Blood Negative (Negative) Urine Nitrite Negative (Negative) Urine Bilirubin 1+ A (Negative) Urine Urobilinogen 0.2 (0.2-1.0) Ur Leukocyte Esterase 1+ A (Negative) Urine RBC 0-2 (0-2) Urine WBC 2-5 (0-5) Ur Squamous Epith Cells Few (None-Few) Urine Bacteria Few A (None) Fine Granular Casts Few A (None) 01/12/25 01/12/25 01/12/25 Range/Units 17:06 17:40 19:25 WBC (4.50-11.00) K/uL RBC (4.30-5.90) m/uL Hgb (13.5-17.5) gm/dL Hct (37.0-53.0) % MCV (80-100) fL MCH (26-34) pg MCHC (32-36) gm/dL RDW Coeff of [place] (11.5-15.5) % Plt Count (140-440) K/uL Neut % (Auto) (42.0-72.0) % Lymph % (Auto) (20-44) % [place] % (Auto) (0.0-11.0) % Eos % (Auto) (0.0-7.0) % Baso % (Auto) (0.0-3.0) % Neut # (Auto) (1.7-7.0) K/uL Lymph # (Auto) (0.90-2.90) K/uL [place] # (Auto) (0.00-0.90) K/UL Eos # (Auto) (0.00-0.50) K/uL Baso # (Auto) (0.00-0.30) K/uL Abs Immat Gran (auto) (0.00-0.30) K/uL Imm/Tot Granulo (auto) % Sodium (135-149) mmol/L Potassium (3.6-5.1) mmol/L Chloride (96-114) mmol/L Carbon Dioxide (20-32) mmol/L Anion Gap (7-15) mEq/L BUN (7-30) mg/dL Creatinine (0.5-1.5) mg/dL Estimated Creat Clear Estimated GFR ml/min Glucose (60-115) mg/dL Lactate 2.0 H (0.5-1.9) mmol/L Calcium (8.4-10.6) mg/dL Ionized Calcium Parul 0.74 L 0.99 L (1.11-1.30) mmol/L Phosphorus 4.8 H (2.5-4.5) mg/dL Magnesium 0.4 L* 0.8 L* (1.5-2.6) mg/dL Total Bilirubin (0.1-1.5) mg/dL AST (12-35) U/L ALT (4-50) U/L Alkaline Phosphatase (40-150) U/L Troponin I (0.01-0.04) ng/mL Total Protein (6.0-8.3) g/dL Albumin (3.3-5.0) g/dL Lipase (23-300) U/L Urine Color (Yellow) Urine Appearance (Clear) Urine pH (5.0-8.5) Ur Specific [place] (1.000-1.030) Urine Protein (Negative) Urine Glucose (UA) (Negative) Urine Ketones (Negative) Urine Blood (Negative) Urine Nitrite (Negative) Urine Bilirubin (Negative) Urine Urobilinogen (0.2-1.0) Ur Leukocyte Esterase (Negative) Urine RBC (0-2) Urine WBC (0-5) Ur Squamous Epith Cells (None-Few) Urine Bacteria (None) Fine Granular Casts (None) ECG Data Attestation: I personally reviewed and interpreted this ECG as follows: Interpretation: Sinus rhythm with premature atrial complexes and premature ventricular complexes Rate 83 PA interval 136 Right bundle branch block QRS pattern. Normal QRS axis No ST segment elevation or depression. QT 466, QTC 547 Critical Care Time Critical Care Time Critical Care Time: Yes Attestation: The patient required my highest level preparedness to intervene emergently and I personally spent this critical care time directly and personally managing the patient. This critical care time included: Obtaining a history; Examining the patient; Pulse oximetry; Ordering and reviewing of studies; Arranging urgent treatment with development of a management plan; Evaluation of patients response to treatment; Frequent reassessment discussions with other providers. This critical care time was performed to assess and manage the high probability of imminent life-threatening deterioration that could result in multiorgan failure. It was exclusive of separate billable procedures and treating other patients and teaching time. Total Critical Care Time in Minutes: 30 Discharge Plan Discharge Clinical Impression: Hypocalcemia, Hypomagnesemia, Weakness Patient Disposition: Admitted As Observation
[2025-01-12 16:22] LABS: Lactate* 2.8 mmol/L (0.5-1.9)
[2025-01-12 16:40] LABS: Albumin* 3.7 g/dL (3.3-5.0); Chloride* 100 mmol/L (96-114); Potassium* 4.3 mmol/L (3.6-5.1); Sodium* 137 mmol/L (135-149)
[2025-01-12 16:41] LABS: Appearance Urine Clear (Clear)
[2025-01-12 16:43] LABS: Alanine Aminotransferase* 19 U/L (4-50); Alkaline Phosphatase* 38 U/L (40-150); Anion Gap 15 mEq/L (7-15); Aspartate Amino Transferase* 37 U/L (12-35); Bilirubin Total* 0.8 mg/dL (0.1-1.5); Blood Urea Nitrogen* 11 mg/dL (7-30); Carbon Dioxide* 22 mmol/L (20-32); Creatinine* 0.9 mg/dL (0.5-1.5); Est. Creatinine Clearance* 56.48; Estimated Glomerular Filt Rate 83 ml/min; Total Protein* 5.9 g/dL (6.0-8.3)
[2025-01-12 16:44] LABS: Calcium* 6.4 mg/dL (8.4-10.6); Glucose* 139 mg/dL (60-115)
--- OUTSIDE RECORDS SUMMARY | 2025-01-12 16:44 | XMS_ITS ---
Author Organization [facility] ter Care Team Providers Care Inside Account Representative Name Role Phone Laura Nela Unavailable Unavailable Claudia Bain Unavailable Unavailable Neil Graves Unavailable Unavailable Allergies and adverse reactions Code CodeSystem Substance Reaction Severity StartDate Concern Status 1202 RXNORM Atenolol Unknown Unknown active 49834 RXNORM Atorvastatin Unknown Unknown active 94124 RXNORM Lisinopril Muscle pain (co de- [id number], SNOMED CT) Unknown Unknown active 6918 RXNORM Metoprolol Headache (code- [id number], SNOMED CT) Unknown Unknown active Care Team Name Role Address Phone Organization Dates Neil Graves PCP Genevive [address] [place] [address], [address], [place], [address], [place] (Office): [facility] 11/18/2024 - 12/21/2024 Nela Sanchez [facility], [facility] 11/18/2024 - 12/21/2024 [place] [id number] [facility] [address], [place], [address], [facility] (Office): : [facility] 11/18/2024 - 12/21/2024 Encounters Encounter Type Code Code System Description Performer Discharge Disposition Service Delivery Location Date Ambulatory Encounter CPT Code = [id number] Closed fracture of neck of femur [facility] Address: [address] [place] [address], [address] [place] [address]. 11/18 Ambulatory Encounter CPT Code = 33815 S72.002D ICD 10 FRACTURE OF UNSPECIFIED PART OF NECK OF LEFT FEMUR, SUBSEQUENT ENCOUNTER FOR CLOSED FRACTURE WITH ROUTINE HEALING [facility] Address: [address] [place] [address], [address] [place] [address]. 11/18 Ambulatory Encounter CPT Code = [id number] Atherosclerosis of coronary artery without angina pectoris [facility] Address: [address] [place] [address], [address] [place] [address]. 11/18 Ambulatory Encounter CPT Code = [id number] Flaccid neurogenic urinary bladder [facility] Address: [address] [place] [address], [address] [place] [address]. 11/18 Ambulatory Encounter CPT Code = [id number] Type 2 diabetes mellitus without complication [facility] Address: [address] [place] [address], [address] [place] [address]. 11/18 Ambulatory Encounter CPT Code = [id number] Chronic kidney disease stage 3 [facility] Address: [address] [place] [address], [address] [place] [address]. 11/18 Ambulatory Encounter CPT Code = [id number] Abnormal gait [facility] Address: [address] [place] [address], [address] [place] [address], [facility]. 11/18 Ambulatory Encounter CPT Code = [id number] [facility] Address: [address] [place] [address], [phone] , [facility]. 11/18 Ambulatory Encounter CPT Code = [id number] Polyneuropathy [facility] Address: [address] [place] [address], [address] [place] [address], [facility]. 11/18 Ambulatory Encounter CPT Code = [id number] [facility]ential tremor [facility] Address: [address] [place] [address], [address] [place] [address], [facility]. 11/18 Ambulatory Encounter CPT Code = [id number] Essential hypertension [facility] Address: [address] [place] [address], [address] [place] [address]. 11/18 Ambulatory Encounter CPT Code = [id number] Aftercare [facility] Address: [address] [place] [address], [address] [place] [address]. 11/18 Ambulatory Encounter CPT Code = [id number] Hyperlipidemia [facility] Address: [address] [place] [address], [address] [place] [address]. 11/18 Ambulatory Encounter CPT Code = [id number] Pain [facility] Address: [address] [place] [address], [address] [place] [address]. 11/18 Ambulatory Encounter CPT Code = [id number] Drug-induced constipation [facility] Address: [address] [place] [address], [address] [place] [address]. 11/18 Ambulatory Encounter CPT Code = [id number] Nausea [facility] Address: [address] [place] [address], [address] [place] [address]. 11/18 Ambulatory Encounter CPT Code = [id number] Urinary tract infectious disease [facility] Address: [address] [place] [address]. 11/18 Ambulatory Encounter CPT Code = [id number] Gastroesophageal reflux disease without esophagitis [facility] Address: [address] [place] [address]. 11/18 Ambulatory Encounter CPT Code = [id number] Hypo-osmolality and or hyponatremia [facility] Address: [address] [place] [address]. 11/18 Ambulatory Encounter CPT Code = [id number] Long-term current use of anticoagulant [facility] Address: [address] [place] [address]. 11/18 Ambulatory Encounter CPT Code = [id number] Coronary artery graft present [facility] Address: [address] [place] [phone] [facility]. 11/18 Goals Section Goals Description Status Target Date I will allow staff to utiliz e enanced barrier precautions Active 12/08/2024 I will be able to express my needs Active 12/08/2024 I will be able to hear and r espond when spoken to Active 12/08/2024 I will be free of falls through the review date. Active 12/08/2024 I will continue to be alert and oriented x 3 Active 12/08/2024 I will continue to not have any oral/dental problems through review date. Active 12/08/2024 I will continue to safely us e the lift function on my recliner chair Active 12/08/2024 I will have no complications r/t the surgical incision on my right hip through the review date. Active 12/08/2024 I will improve current level of function through the review date. Active 12/08/2024 I will not leave facility unattended through the review date. Active 12/08/2024 I will not leave the facility independently. Act ramsey 12/08/2024 I will remain continent of bowel Active 12/08/2024 I will remain free of compli cations related to immobility, including contractures, thrombus formation, skin-breakdown, fall related injury through the next review date. Active I will show no s/sx of Urinary infection through review date. Active 12/08/2024 I will verbalize adequate re lief of pain or ability to cope with incompletely relieved pain through the review date. Active My Advance Directive prefere nces will be honored Active 12/08/2024 My safety will be maintained through the review date. Active 12/08/2024 Nursing will administer my medications as direct ed by my MD/BATCH ATTENDANT Active 12/08/2024 Resident Intake of Nutrients Will Meet Metabolic Needs appetite will improve Active 12/08/2024 Resident will continue to re ad a t level of regular print Active 12/08/2024 The Resident's safety will be maintained Active 12/08/2024 The resident will not leave facility unattended Active 12/08/2024 Functional Status Code Name Recorded Time Value Entered By Ambulation 11/23/2024 Not assessed [email or web address] rg Ambulation 11/23/2024 Not assessed [email or web address] rg Bathing 11/21/2024 Extensive Assistance [email or web address] Chair/bsy-el-[email or web address] transfer 12/21/2024 Partial/moderate assistance [email or web address] Does the resident use a wheelchair and/or scooter? 12/21/2024 Yes (qualifier value) [email or web address] Dressing 11/23/2024 Extensive Assistance Bridger [email or web address] Eating 12/21/2024 Independent [email or web address] [email or web address] Feeding or Eating 11/23/2024 Independent [email or web address] [email or web address] Indicate the type of wheelchair or scooter used 12/21/2024 Not assessed [email or web address] [email or web address] Indicate the type of wheelchair or scooter used 12/21/2024 Manual wheelchair (physical object) [email or web address] Lower body dressing 12/21/2024 Partial/mode rate assistance [email or web address] Lying to sitting on side of bed 12/21/2024 Partial/moderate assistance [email or web address] Oral hygiene 12/21/2024 Partial/moderate assistance [email or web address] Personal hygiene 12/21/2024 Partial/moderat e assistance [email or web address] Picking up object 12/21/2024 Partial/modera te assistance [email or web address] Putting on/taking off footwear 12/21/2024 Partial/moderate assistance [email or web address] Roll left and right 12/21/2024 Independent Jenifer [email or web address] Shower/bathe self 12/21/2024 Not assessed Nicole [email or web address] Sit to lying 12/21/2024 Partial/moderate assistance [email or web address] Sit to stand 12/21/2024 Partial/moderate assistance [email or web address] Toilet transfer 12/21/2024 Partial/moderate assistance [email or web address] Toileting 11/29/2024 Not assessed [email or web address] Toileting hygiene 12/21/2024 Substantial/ma ximal assistance [email or web address] Transferring 11/29/2024 Not assessed [email or web address] Upper body dressing 12/21/2024 Partial/mode rate assistance [email or web address] Walk 10 feet 12/21/2024 Partial/moderate assistance [email or web address] Walk 150 feet 12/21/2024 Not assessed [email or web address] [email or web address] Walk 50 feet 12/21/2024 Not assessed [email or web address] Wheel 150 feet 12/21/2024 Not assessed [email or web address] [email or web address] Wheel 50 feet with two turns 12/21/2024 Partial/moderate assistance [email or web address] Immunizations Immunization Status Vaccine Details Vaccine Code CodeSystem Date Notes TB 2 Step Mantoux Skin Test completed tuberculin skin test; unspecified formulation lotNumber: [id number] expiry: 03/26/2027 Mfg: Sonafi Given 0.1 ml Right Forearm intradermally Step 2 of Multi-step with next step required 98 CVX created date: 11/22/2024 consent date: 11/18/2024 administer ed date: 12/03/2024 TB 2 Step Mantoux Skin Test completed tuberculin skin test; unspecified formulation lotNumber: [id number] expiry: 11/18/2024 Mfg: Sonafi Given 0.1 ml Left Forearm intradermally Step 1 of Multi-step with next step required 98 CVX created date: 11/18/2024 consent date: 11/18/2024 administer ed date: 11/18/2024 Educated by on 11/22/2024 Negative test read 11/21/24 AM by Sara Aldana LPN Prevnar 13 completed pneumococcal conjugate vaccine, 13 valent 133 CVX created date: 11/16/2024 administer ed date: 04/27/2015 Influenza Seasonal 0.5mL cancelled Influenza, adjuvanted, inactivated, quadrivalent, injectable, preservative free 205 CVX created date: 11/28/2024 consent date: 11/18/2024 Educated by on 11/28/2024 Influenza Seasonal 0.5mL completed Influenza, adjuvanted, inactivated, quadrivalent, injectable, preservative free 205 CVX created date: 11/16/2024 administer ed date: 12/14/2023 Shingles (unspecified) completed zoster vaccine, unspecified formulation 188 CVX created date: 11/16/2024 administer ed date: 01/27/2019 Shingles (unspecified) completed zoster vaccine, unspecified formulation 188 CVX created date: 11/16/2024 administer ed date: 11/24/2018 Prevnar 20 cancelled Pneumococcal conjugate vaccine 20-valent (PCV20), polysaccharide [id number] conjugate, adjuvant, preservative free 216 CVX created date: 11/28/2024 consent date: 11/18/2024 Educated by on 11/28/2024 Tdap (Tetanus Diphtheria Pertussis) completed tetanus toxoid, reduced diphtheria toxoid, and acellular pertussis vaccine, adsorbed 115 CVX created date: 11/16/2024 administer ed date: 11/17/2022 COVID-19 Pfizer 30mcg/0.3ml completed SARS-COV-2 (COVID-19) vaccine, mRNA, spike protein, LNP, preservative free, brittany-sucrose, 30 mcg/0.3 mL dose 309 CVX created date: 11/16/2024 administer ed date: 12/13/2020 COVID-19 Moderna cancelled SARS-COV-2 (COVID-19) vaccine, mRNA, spike protein, LNP, preservative free, 25 mcg/0.25 mL dose 311 CVX created date: 11/28/2024 consent date: 11/18/2024 Educated by on 11/28/2024 KBU-Hzfrltz-Pank er cancelled Respiratory syncytial virus (RSV), vaccine, bivalent, protein subunit RSV prefusion F, diluent reconstituted, 0.5 mL, preservative free 305 CVX created date: 11/28/2024 consent date: 11/18/2024 Educated by on 11/28/2024 Medications Section Medication Name Status Code CodeSystem Dose Route Frequency Admin Type Sig Text Start Date End Date Indication Acetaminoph en Oral Tablet 500 MG aborted RXNORM 1000 mg Oral three times a day Routin e Give 1000 mg by mouth three times a day relat ed to PAIN, UNSPE CIFIE D (R52) Q 8 hrs. 12/21 - Lidocaine External Patch 5 % aborted 11665 91 RXNORM n/a n/a Topica l every 12 hours Routin e Apply to R Hip topic ally every 12 hours for Pain relat ed to FRACT URE OF UNSPE CIFIE D PART OF NECK OF LEFT FEMUR , SUBSE QUENT ENCOU NTER FOR CLOSE D FRACT URE WITH JOSÉ ANTONIOI MIGUEL A SCHULZ (S72. 002D) Do not place over incis ion, ON IN AM, OFF in PM 12/21 Pain oxyCODONE HCl Oral Tablet 5 MG aborted 63959 21 RXNORM 2.5 mg Oral as needed PRN Give 2.5 mg by mouth every 4 hours as neede d for Mild Pain relat ed to PAIN, UNSPE CIFIE D (R52) 2.5 mg every 4 hours for Mild Pain AND Give 5 mg by mouth every 4 hours as neede d for Moder ate-S evere Pain relat ed to PAIN, UNSPE CIFIE D (R52) 5mg every 4 hours for Moder ate-S evere Pain; wean as able 11/30 Mild Pain 57146 21 RXNORM 5 mg Oral as needed PRN Give 2.5 mg by mouth every 4 hours as neede d for Mild Pain relat ed to PAIN, UNSPE CIFIE D (R52) 2.5 mg every 4 hours for Mild Pain AND Give 5 mg by mouth every 4 hours as neede d for Moder ate-S evere Pain relat ed to PAIN, UNSPE CIFIE D (R52) 5mg every 4 hours for Moder ate-S evere Pain; wean as able 11/30 Moderate-Se marybeth Pain glipiZIDE Oral Tablet 5 MG aborted 03071 0 RXNORM 1 table t Oral one time a day Routin e Give 1 table t by mouth one time a day relat ed to TYPE 2 DIABSarina JUAN WITHO UT COMPL ICATI ONS (E11. 9) 11/21 - Clopidogrel Bisulfate Oral Tablet 75 MG aborted 47610 2 RXNORM 1 table t Oral one time a day Routin e Give 1 table t by mouth one time a day relat ed to RESIDENTIAL (CURR ENT) USE OF ANTIC OAGUL ANTS (Z79. 01) 12/21 - Januvia Oral Tablet 100 MG aborted 61524 6 RXNORM 1 table t Oral one time a day Routin e Give 1 table t by mouth one time a day relat ed to TYPE 2 DIABSarina JUAN WITHO UT COMPL ICATI ONS (E11. 9) 12/21 - metFORMIN HCl Oral Tablet 1000 MG aborted 92181 4 RXNORM 1 table t Oral two times a day Routin e Give 1 table t by mouth two times a day relat ed to TYPE 2 DIABE ELI MELLI TUS WITHO UT COMPL ICATI ONS (E11. 9) 12/21 - Ranolazine ER Oral Tablet Extended Release 12 Hour 500 MG aborted 93412 9 RXNORM 1 table t Oral every 12 hours Routin e Give 1 table t by mouth every 12 hours relat ed to ATHER OSCLE ROTIC HEART DISEA SE OF NATIV E CORON SARAH ARTER Y WITHO UT ANGIN A PECTO RIS (I25. 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 10) 12/21 - Rosuvastati n Calcium Oral Tablet 20 MG aborted 30704 1 RXNORM 0.5 table t Oral at bedtime Routin e Give 0.5 table t by mouth at bedti me relat ed to HYPER LIPID EMIA, UNSPE CIFIE D (E78. 5) 12/21 - Isosorbide Mononitrate ER Oral Tablet Extended Release 24 Hour 30 MG aborted 88493 0 RXNORM 1 table t Oral one time a day Routin e Give 1 table t by mouth one time a day relat ed to ATHER OSCLE ROTIC HEART DISEA SE OF NATIV E CORON SARAH ARTER Y WITHO UT LYDIAN Bill PECTO RIS (I25. 10) 12/21 - Sennosides- Docusate Sodium Oral Tablet 8.6-50 MG aborted 54219 0 RXNORM 2 table t Oral as needed PRN Give 2 table t by mouth as neede d for Const ipati on relat ed to DRUG INDUC ED CONST IPATI ON (K59. 03) BID PRN; Hold medic ation if exper ienci ng loose stool s 11/21 Constipatio n Propranolol HCl Oral Tablet 20 MG aborted 20397 7 RXNORM 1 table t Oral one time a day Routin e Give 1 table t by mouth one time a day relat ed to [facility] TREMO R (G25. 0) 11/30 - Docusate Sodium Oral Capsule 100 MG aborted 38576 05 RXNORM 100 mg Oral as needed PRN Give 100 mg by mouth as neede d for Const ipati on relat ed to DRUG INDUC ED CONST IPATI ON (K59. 03) Twice a day as neede d 12/21 Constipatio n Tuberculin PPD Solution 5 UNIT/0.1[place] [address] 2 RXNORM 0.1 ml Intrad ermal every evening shift Routin e Injec t 0.1 ml intra derma lly every eveni ng shift for TB (Tube rculo sis) Scree yusuf for 1 Admin istra tions AND Injec t 0.1 ml intra derma lly every eveni ng shift for TB (Tube rculo sis) Scree yusuf for 1 Admin istra tions 11/19 TB (Tuberculos is) Screening 72864 2 RXNORM 0.1 ml Intrad ermal every evening shift Routin e Injec t 0.1 ml intra derma lly every eveni ng shift for TB (Tube rculo sis) Scree yusuf for 1 Admin istra tions AND Injec t 0.1 ml intra derma lly every eveni ng shift for TB (Tube rculo sis) Scree yusuf for 1 Admin istra tions 12/03 TB (Tuberculos is) Screening NovoLOG FlexPen Subcutaneou s Solution Pen-injecto r 100 UNIT/ML aborted 50252 04 RXNORM n/a n/a Subcut aneous before meals Routin e Injec t as per ananya schulz scale : if 0 - 399 = 0; 400+ = 8, subcu taneo usly befor e meals relat ed to TYPE 2 DIABE ELI ARREAGAS WITHO UT COMPL ICATI ONS (E11. 9) 12/08 - Senna Oral Tablet 8.6 MG aborted 2 table t Oral as needed PRN Give 2 table t by mouth as neede d for const ipati on relat ed to DRUG INDUC ED CONST IPATI ON (K59. 03) 2 table ts PO BID PRN 12/21 constipatio n glipiZIDE Oral Tablet 5 MG aborted 45971 0 RXNORM 1 table t Oral two times a day Routin e Give 1 table t by mouth two times a day relat ed to TYPE 2 DIABE ELI JUAN WITHO UT COMPL ICATI ONS (E11. 9) 12/21 - Insulin Glargine Subcutaneou s Solution aborted 10 unit Subcut aneous one time a day Routin e Injec t 10 unit subcu taneo usly one time a day relat ed to TYPE 2 DIABE ELI ARREAGAS WITHO UT COMPL ICATI ONS (E11. 9) 12/08 - Ondansetron Oral Tablet Disintegrat ing 4 MG aborted 96733 4 RXNORM 1 table t Oral as needed PRN Give 1 table t by mouth every 4 hours as neede d for Nause a relat ed to NAUSE A (R11. 0) 12/21 Nausea Macrobid Oral Capsule 100 MG aborted 40212 2 RXNORM 1 capsu le Oral two times a day Routin e Give 1 capsu le by mouth two times a day for UTI for 7 Days 11/30 UTI cefTRIAXone Sodium Injection Solution Reconstitut ed 1 [place] [address] 21 RXNORM 1 gram Intram uscula r one time only One Time Only Injec t 1 gram intra muscu larly one time only for UTI for 1 Day sean to recon stitu te w/ lidoc jamila 11/26 UTI Dulcolax Suppository 10 MG aborted 1 RXNORM 1 suppo sitor y Rectal as needed PRN Inser t 1 suppo sitor y recta lly every 24 hours as neede d for const ipati on for 3 Days Give if no BM in 48 hours 11/30 constipatio n Omeprazole Oral Tablet Delayed Release 20 MG aborted 74912 4 RXNORM 1 table t Oral two times a day Routin e Give 1 table t by mouth two times a day relat ed to [facility] O-ESO PHAGE AL REFLU X DISEA SE WITHO UT ESOPH AGITI S (K21. 9) 12/21 - Propranolol HCl Oral Tablet 20 MG aborted 78091 7 RXNORM 1 table t Oral two times a day Routin e Give 1 table t by mouth two times a day relat ed to [facility] T[facility] TREMO R (G25. 0) Take with meals 12/21 - Amoxicillin Oral Capsule [place] [address] 1 RXNORM 1 capsu le Oral two times a day Routin e Give 1 capsu le by mouth two times a day relat ed to URINA RY TRACT INFEC TION, SITE NOT SPECI FIED (N39. 0) for 5 Days 12/05 - Acetaminoph en Oral Tablet 500 MG aborted 0 RXNORM 1000 mg Oral as needed PRN Give 1000 mg by mouth as neede d for Pain relat ed to PAIN, UNSPE CIFIE D (R52) QD PRN 12/21 Pain Insulin Glargine Subcutaneou s Solution aborted 12 unit Subcut aneous one time a day Routin e Injec t 12 unit subcu taneo usly one time a day relat ed to TYPE 2 DIABE ELI MELLI TUS WITHO UT COMPL ICATI ONS (E11. 9) 12/16 - Mirtazapine Tablet 7.5 MG aborted 25466 9 RXNORM 1 table t Oral at bedtime Routin e Give 1 table t by mouth at bedti me for Poor appet ite 12/21 Poor appetite NovoLOG FlexPen Subcutaneou s Solution Pen-injecto r 100 UNIT/ML aborted 05325 04 RXNORM n/a n/a Subcut aneous before meals Routin e Injec t as per ananya ng scale : if 250 - 399 = 2; 400 - 599 = 4; 600+ Call Provi oswald, subcu taneo usly befor e meals relat ed to TYPE 2 DIABE ELI JUAN WITHO UT COMPL ICATI ONS (E11. 9) 12/16 - Dulcolax Suppository 10 [place] [address] 1 RXNORM 1 suppo sitor y Rectal as needed PRN Inser t 1 suppo sitor y recta lly every 24 hours as neede d for const ipati on for 3 Days Give if no BM in 48 hours 12/14 constipatio n Insulin Glargine Subcutaneou s Solution aborted 14 unit Subcut aneous one time a day Routin e Injec t 14 unit subcu taneo usly one time a day relat ed to TYPE 2 DIABE ELI JUAN WITHO UT COMPL ICATI ONS (E11. 9) Give after break fast 12/16 - Insulin Glargine Subcutaneou s Solution aborted 14 unit Subcut aneous one time a day Routin e Injec t 14 unit subcu taneo usly one time a day relat ed to TYPE 2 DIABE ELI JUAN WITHO UT COMPL ICATI ONS (E11. 9) GIVE AFTER BREAK FAST 12/21 - Mental Status Section Date Assessment Total Score Description 11/28/2024 CAM 1 Delirium indica neha 11/25/2024 CAM 1 Delirium indica neha Insurance Providers Plan of Treatment Section Interventions Intervention Code Code System Display Name Proposed D ate Problems Problem # Description Date of onset Resolved Date Code CodeSystem Concern Status 1 HYPO-OSMOLALITY AND HYPONATREMIA 12/03/[id number] active 2 GASTRO-ESOPHAGEAL REFLUX DISEASE WITHOUT ESOPHAGITIS 12/01/[address] active 3 URINARY TRACT INFECTION, SITE NOT SPECIFIED 11/25/[address] active 4 NAUSEA 11/24/[address] active 5 ANEMIA, UNSPECIFIED 11/19/[address] active 6 ATHEROSCLEROTIC HEART DISEASE OF [place] CORONARY ARTERY WITHOUT ANGINA PECTORIS 11/19/[id number] active 7 CHRONIC KIDNEY DISEASE, STAGE 3 UNSPECIFIED 11/19/[address] active 8 DRUG INDUCED CONSTIPATION 11/19/[address] active 9 ENCOUNTER FOR OTHER ORTHOPEDIC AFTERCARE 11/19/[address] active 10 ESSENTIAL (PRIMARY) HYPERTENSION 11/19/[id number] active 11 ESSENTIAL TREMOR 11/19/[address] active 12 FLACCID NEUROPATHIC BLADDER, NOT ELSEWHERE CLASSIFIED 11/19/[address] active 13 FRACTURE OF UNSPECIFIED PART OF NECK OF RIGHT FEMUR, SUBSEQUENT ENCOUNTER FOR CLOSED FRACTURE WITH ROUTINE HEALING 11/19/[address] active 14 HYPERLIPIDEMIA, UNSPECIFIED 11/19/[address] active 15 RESIDENTIAL (CURRENT) USE OF ANTICOAGULANTS 11/19/[address] active 16 OTHER ABNORMALITIES OF GAIT AND MOBILITY 11/19/[address] active 17 PAIN, UNSPECIFIED 11/19/[address] active 18 POLYNEUROPATHY, UNSPECIFIED 11/19/[address] active 19 PRESENCE OF CORONARY ANGIOPLASTY IMPLANT AND GRAFT 11/19/[address] active 20 TYPE 2 DIABETES MELLITUS WITHOUT COMPLICATIONS 11/19/[address] active Reason for Referral No Reasons for Referral Entered Social History Social History Observation Description Start Date End Date Code Code System Current Smoking Status Tobacco smoking consumption unknown 876687043 SNOMED CT Sex Assigned At Male 1940 88277-9 LOINC Gender Identity Male 46854330567050 [address] Sexual Orientation Heterosexual (finding) 80405860 SNOMED CT Vital Signs Code Code System Vitals Name Values and Units Timing Information 2339-0 LOINC Blood Sugar Value=95.0 Units=mg/dL 12/21/2024 73307-8 [facility] Pain Level Value=0.0 12/21/2024 26662-7 [facility] Weight Ahime=741.0 Units=Lbs 9279-1 [facility] Respiratory Rate Value=16.0 Units=/m in 12/13/2024 8462-4 [facility] Blood Pressure-Diastolic Value=62 Un its=mmHg 12/13/2024 8480-6 [facility] Blood Pressure-Systolic Itpep=811 Un its=mmHg 12/13/2024 8310-5 [facility] Body Temperature Value=97.3 Units= F 12/13/2024 8867-4 [facility] Heart rate Value=82.0 Units=/min 87373-4 [facility] O2 % BldC Oximetry Value=97.0 Units= % 12/13/2024 8302-2 [facility] Height Value=71.0 Units=Inches 11/25/2024
--- OUTSIDE RECORDS SUMMARY | 2025-01-12 16:44 | XMS_ITS ---
Author Organization [facility] ter Care Team Providers Care Generator Rebuilder Name Role Phone SanchezSuhae Unavailable Unavailable Claudia Bain Unavailable Unavailable Neil Graves Unavailable Unavailable Allergies and adverse reactions Code CodeSystem Substance Reaction Severity StartDate Concern Status 6918 RXNORM Metoprolol Headache (code- 97709604, SNOMED CT) Unknown Unknown active 68379 RXNORM Lisinopril Muscle pain (co de- 43881683, SNOMED CT) Unknown Unknown active 44111 RXNORM Atorvastatin Unknown Unknown active 1202 RXNORM Atenolol Unknown Unknown active Care Team Name Role Address Phone Organization Dates Neil Graves PCP Genevive [facility] [facility], [address], [place], [address], [place] (Office): [facility] 11/18/2024 - present Nela Sanchez [facility], [facility] 11/18/2024 - present Claudia Billvive [address] [facility] [address], [place], [address], [facility] (Office): : [facility] 11/18/2024 - present Encounters EncounterType Code CodeSystem Description Performer ServiceDe liveryLocation Date Ambulatory Encounter CPT Code = 51677 S72.002 D ICD 10 FRACTURE OF UNSPECIFIED PART OF NECK OF LEFT FEMUR, SUBSEQUENT ENCOUNTER FOR CLOSED FRACTURE WITH ROUTINE HEALING [facility] Address: [address] [place] [address], [address] [place] [address], [facility]. 11/18 Ambulatory Encounter CPT Code = [id number] Closed fracture of neck of femur [facility] Address: [address] [place] [address], [address] [place] [address], [facility]. 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. 11/18 Ambulatory Encounter CPT Code = [address] Flaccid neurogenic urinary bladder [facility] Address: [address] [place] [address], [address] [place] [address], [facility]. 11/18 Ambulatory Encounter CPT Code = [address] Type 2 diabetes mellitus without complication [facility] Address: [address] [place] [address], [address] [place] [address], [facility]. 11/18 Ambulatory Encounter CPT Code = [id number] Chronic kidney disease stage 3 [facility] Address: [address] [place] [address], [address] [place] [address], [facility]. 11/18 Ambulatory Encounter CPT Code = [address] Abnormal gait [facility] Address: [address] [place] [address], [address] [place] [address]. 11/18 Ambulatory Encounter CPT Code = [address] [facility] Address: [address] [place] [address], [address] [place] [address]. 11/18 Ambulatory Encounter CPT Code = [address] Polyneuropathy [facility] Address: [address] [place] [address], [address] [place] [address]. 11/18 Ambulatory Encounter CPT Code = [address] Essential tremor [facility] Address: [address] [place] [address], [address] [place] [address]. 11/18 Ambulatory Encounter CPT Code = [address] Essential hypertension [facility] Address: [address] [place] [address], [address] [place] [address]. 11/18 Ambulatory Encounter CPT Code = [address] Admission by orthopedic surgeon [facility] Address: [address] [place] [address], [address] [place] [address]. 11/18 Ambulatory Encounter CPT Code = [address] [facility] Address: [address] [place] [address], [address] [place] [address]. 11/18 Ambulatory Encounter CPT Code = [address] [facility] Address: [address] [place] [address], [address] [place] [address]. 11/18 Ambulatory Encounter CPT Code = [address] Drug-induced constipation [facility] Address: [address] [place] [address], [address] [place] [address]. 11/18 Ambulatory Encounter CPT Code = [address] [facility] Address: [address] [place] [address], [address] [place] [address]. 11/18 Ambulatory Encounter CPT Code = [address] Coronary artery graft [facility] Address: [address] [place] [address], [address], [facility]. 11/18 Ambulatory Encounter CPT Code = [address] Long-term current use of anticoagulant [facility] Address: [address] [place] [address], [address], [facility]. 11/18 Goals Section Goals Description Status Target Date I will allow staff to utiliz e enanced barrier precautions Active 02/16/2025 I will be able to express my needs Active 02/16/2025 I will be able to hear and r espond when spoken to Active 02/16/2025 I will be free of falls through the review date. Active 02/16/2025 I will continue to be alert and oriented x 3 Active 02/16/2025 I will continue to not have any oral/dental problems through review date. Active 02/16/2025 I will continue to safely us e the lift function on my recliner chair Active 02/16/2025 I will have no complications r/t (SPECIFY skin injury type) of the (SPECIFY location) through the review date. Active 02/16/2025 I will improve current level of function through the review date. Active 02/16/2025 I will not leave the facility independently. Act ramsey 02/16/2025 I will remain continent of bowel Active 02/16/2025 I will remain free of compli cations related to immobility, including contractures, thrombus formation, skin-breakdown, fall related injury through the next review date. Active I will show no s/sx of Urinary infection through review date. Active 02/16/2025 I will verbalize adequate re lief of pain or ability to cope with incompletely relieved pain through the review date. Active My Advance Directive prefere nces will be honored Active 02/16/2025 Resident Intake of Nutrients Will Meet Metabolic Needs Active 02/16/2025 Resident will continue to re ad a t level of regular print Active 02/16/2025 Functional Status Code Name Recorded Time Value Entered By Ambulation 11/23/2024 Not assessed Rene@[facility] Ambulation 11/23/2024 Not assessed Rene@[facility] rg Bathing 11/21/2024 Extensive Assistance Faiza [email or web address] g Chair/fdj-xn-fquyn transfer 11/28/2024 Substantial/maximal assistance [email or web address] Does the resident use a wheelchair and/or scooter? 11/28/2024 Not assessed Jo.Erika [email or web address] Dressing 11/23/2024 Extensive Assistance Bridger [email or web address] rg Eating 11/28/2024 Setup or clean-u p assistance [email or web address] Feeding or Eating 11/23/2024 Independent Anaya.[email or web address] [email or web address] Indicate the type of wheelchair or scooter used 11/28/2024 Not assessed Jo.Erika [email or web address] Indicate the type of wheelchair or scooter used 11/28/2024 Not assessed Jo.Erika [email or web address] Lower body dressing 11/28/2024 Not assessed Jo.Jae [email or web address] Lying to sitting on side of bed 11/28/2024 Not assessed [email or web address] Oral hygiene 11/28/2024 Setup or clean-u p assistance [email or web address] Personal hygiene 11/28/2024 Not assessed Jo.Courtney [email or web address] Picking up object 11/28/2024 Not assessed Jo.Gabriel [email or web address] Putting on/taking off footwear 11/28/2024 Not assessed [email or web address] Roll left and right 11/28/2024 Not assessed Jo.Jae [email or web address] Shower/bathe self 11/28/2024 Substantial/ma ximal assistance [email or web address] Sit to lying 11/28/2024 Substantial/maxi mal assistance [email or web address] Sit to stand 11/28/2024 Not assessed Jo.Manisha [email or web address] Toilet transfer 11/28/2024 Not assessed Jo.[email or web address] [email or web address] Toileting 11/28/2024 Not assessed Tremayne [email or web address] Toileting hygiene 11/28/2024 Dependent [email or web address] [email or web address] Transferring 11/28/2024 Extensive Assistance Ronaldo [email or web address] Upper body dressing 11/28/2024 Not assessed Odalys [email or web address] Walk 10 feet 11/28/2024 Not assessed Jo.Manisha [email or web address] Walk 150 feet 11/28/2024 Not assessed Jo.Janice [email or web address] Walk 50 feet 11/28/2024 Not assessed Jo.Manisha [email or web address] Wheel 150 feet 11/28/2024 Not assessed Jo.Erika [email or web address] Wheel 50 feet with two turns 11/28/2024 Not assessed [email or web address] Immunizations Immunization Status Vaccine Details Vaccine Code CodeSystem Date Notes TB 2 Step Mantoux Skin Test new tuberculin skin test; unspecified formulation 98 CVX created date: 11/22/2024 consent date: 11/18/2024 TB 2 Step [place]oux Skin Test completed tuberculin skin test; unspecified formulation lotNumber: [id number] expiry: 11/18/2024 Mfg: Sonafi Given 0.1 ml [...] cancelled Pneumococcal conjugate vaccine 20-valent (PCV20), polysaccharide [id number] conjugate, adjuvant, preservative free 216 CVX created [...] consent date: 11/18/2024 Educated by on 11/28/2024 [id number] er cancelled Respiratory syncytial virus (RSV), vaccine, bivalent, protein subunit RSV prefusion F, diluent reconstituted, 0.5 mL, preservative free 305 CVX created date: 11/28/2024 consent date: 11/18/2024 Educated by on 11/28/2024 Medications Section Medication Name Status Code CodeSystem Dose Route Frequency Admin Type Sig Text Start Date End Date Indication Acetaminoph en Oral Tablet 500 MG suspend ed 0 RXNORM 1000 mg Oral three times a day Routin e Give 1000 mg by mouth three times a day relat ed to PAIN, UNSPE CIFIE D (R52) Q 8 hrs. 2024 - - Lidocaine External Patch 5 % [place] [address] 91 RXNORM n/a n/a Topica l every 12 hours Routin e Apply to R Hip topic ally every 12 hours for Pain relat ed to FRACT URE OF UNSPE CIFIE D PART OF NECK OF LEFT FEMUR , SUBSE QUENT ENCOU NTER FOR CLOSE D FRACT URE WITH ROUTI NE RENETTAI NG (S72. 002D) Do not place over incis ion, ON IN AM, OFF in PM 2024 - Pain oxyCODONE HCl Oral Tablet 5 [place] [address] 21 RXNORM 2.5 mg Oral as needed [...] Moder ate-S evere Pain; wean as able 2024 - Mild Pain 49873 21 RXNORM 5 mg Oral as needed [...] Moder ate-S evere Pain; wean as able 2024 - Moderate-Se marybeth Pain glipiZIDE Oral Tablet 5 MG aborted 12358 0 RXNORM 1 table t Oral one time a day Routin e Give 1 table t by mouth one time a day relat ed to TYPE 2 DIABE ELI LUI TUS WITHO UT COMPL ICATI ONS (E11. 9) 11/21 - Clopidogrel Bisulfate Oral Tablet 75 MG suspend ed 29279 2 RXNORM 1 table t Oral one time a day Routin e Give 1 table t by mouth one time a day relat ed to BILINGUAL CUSTOMER SERVICE (CURR ENT) USE OF ANTIC OAGUL ANTS (Z79. 01) 2024 - - Januvia Oral Tablet [place] [address] 6 RXNORM 1 table t Oral one time a day Routin e Give 1 table t by mouth one time a day relat ed to TYPE 2 DIABE ELI JUAN WITHO UT COMPL ICATI ONS (E11. 9) 2024 - - metFORMIN HCl Oral Tablet 1000 [place] [address] 4 RXNORM 1 table t Oral two times a day Routin e Give 1 table t by mouth two times a day relat ed to TYPE 2 DIABE ELI JUAN WITHO UT COMPL ICATI ONS (E11. 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 10) 2024 - - Nitroglycer in Sublingual Tablet Sublingual 0.4 [place] [address] 9 RXNORM 1 table t Sublin gual as needed PRN Give 1 table t subli ngual ly every 5 minut es as neede d for Chest Pain relat ed to ATHER OSCLE ROTIC HEART DISEA SE OF NATIV E CORON SARAH ARTER Y WITHO UT ANGIN A PECTO RIS (I25. 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 10) 2024 - - Rosuvastati n Calcium Oral Tablet 20 [place] [address] 1 RXNORM 0.5 table t Oral at bedtime Routin e Give 0.5 table t by mouth at bedti me relat ed to HYPER LIPID EMIA, UNSPE CIFIE D (E78. 5) 2024 - - Isosorbide Mononitrate ER Oral Tablet Extended Release 24 Hour 30 [place] [address] 0 RXNORM 1 table t Oral one time a day Routin e Give 1 table t by mouth one time a day relat ed to ATHER OSCLE ROTIC HEART DISEA SE OF NATIV E CORON SARAH ARTER Y WITHO UT ANGIN A PECTO RIS (I25. 10) 2024 - - Sennosides- Docusate Sodium Oral Tablet 8.6-50 MG aborted 51381 0 RXNORM 2 table t Oral as needed PRN Give 2 table t by mouth as neede d for Const ipati on relat ed to DRUG INDUC ED CONST IPATI ON (K59. 03) BID PRN; Hold medic ation if exper ienci ng loose stool s 11/21 Constipatio n Propranolol HCl Oral Tablet 20 [place] [address] 7 RXNORM 1 table t Oral one time a day Routin e Give 1 table t by mouth one time a day relat ed to BRIANEN TIADebbi TREMO R (G25. 0) 2024 - - Rivaroxaban Oral Tablet 10 [place] [address] 98 RXNORM 1 table t Oral one time a day Routin e Give 1 table t by mouth one time a day relat ed to SHELTER (CURR ENT) USE OF ANTIC OAGUL ANTS (Z79. 01) until 11/20 00:00 11/20 - Docusate Sodium Oral Capsule 100 [place] [address] 05 RXNORM 100 mg Oral as needed PRN Give 100 mg by mouth as neede d for Const ipati on relat ed to DRUG INDUC ED CONST IPATI ON (K59. 03) Twice a day as neede d 2024 - Constipatio n Tuberculin PPD Solution 5 UNIT/0.1[place] [address] 2 RXNORM 0.1 ml Intrad ermal every evening shift Routin e Injec t 0.1 ml intra derma lly every eveni ng shift for TB (Tube rculo sis) Scree yusuf for 1 Admin istra tions AND Injec t 0.1 ml intra derma lly every eveni ng shift for TB (Tube rculo sis) Scree yusuf for 1 Admin istra tions 11/19 TB (Tuberculos is) Screening 55001 2 RXNORM 0.1 ml Intrad ermal every [...] Subcutaneou s Solution Pen-injecto r 100 UNIT/[place] [address] 04 RXNORM n/a n/a Subcut aneous before meals Routin e Injec t as per slidi ng scale : if 0 - 399 = 0; 400+ = 8, subcu taneo usly befor e meals relat ed to TYPE 2 DIABE ELI MELLI TUS WITHO UT COMPL ICATI ONS (E11. 9) 2024 - - Senna Oral Tablet 8.6 MG suspend ed 2 table t Oral as needed PRN Give 2 table t by mouth as neede d for const ipati on relat ed to DRUG INDUC ED CONST IPATI ON (K59. 03) 2 table ts PO BID PRN 2024 - constipatio n glipiZIDE Oral Tablet 5 [place] [address] 0 RXNORM 1 table t Oral two times a day Routin e Give 1 table t by mouth two times a day relat ed to TYPE 2 DIABE ELI MELLI TUS WITHO UT COMPL ICATI ONS (E11. 9) 2024 - - Insulin Glargine Subcutaneou s Solution suspend ed 10 unit Subcut aneous one time a day Routin e Injec t 10 unit subcu taneo usly one time a day relat ed to TYPE 2 DIABE ELI MELLI TUS WITHO UT COMPL ICATI ONS (E11. 9) 2024 - - Ondansetron Oral Tablet Disintegrat ing 4 [place] [address] 4 RXNORM 1 table t Oral as needed PRN Give 1 table t by mouth every 4 hours as neede d for Nause a relat ed to NAUSE Bill (R11. 0) 2024 - Nausea Macrobid Oral Capsule 100 [place] [address] 2 RXNORM 1 capsu le Oral two times a day Routin e Give 1 capsu le by mouth two times a day for UTI for 7 Days 12/03 UTI cefTRIAXone Sodium Injection Solution Reconstitut ed 1 [place] [address] 21 RXNORM 1 gram Intram uscula r one time only One Time Only Injec t 1 gram intra muscu larly one time only for UTI for 1 Day sean to recon stitu te w/ lidoc jamila 11/26 UTI Dulcolax Suppository 10 [place] [address] 1 RXNORM 1 suppo sitor y Rectal as needed PRN Inser t 1 suppo sitor y recta lly every 24 hours as neede d for const ipati on for 3 Days Give if no BM in 48 hours 12/01 constipatio n Insurance Providers Plan of Treatment Section Interventions Intervention Code Code System Display Name Proposed D ate Problems Problem # Description Date of onset Resolved Date Code CodeSystem Concern Status 1 NAUSEA 11/24/[address] active 2 ANEMIA, UNSPECIFIED 11/19/[address] active 3 ATHEROSCLEROTIC HEART DISEASE OF [place] CORONARY ARTERY WITHOUT ANGINA PECTORIS 11/19/[address] active 4 CHRONIC KIDNEY DISEASE, STAGE 3 UNSPECIFIED 11/19/[address] active 5 DRUG INDUCED CONSTIPATION 11/19/[address] active 6 ENCOUNTER FOR OTHER ORTHOPEDIC AFTERCARE 11/19/[address] active 7 ESSENTIAL (PRIMARY) HYPERTENSION 11/19/[address] active 8 ESSENTIAL TREMOR 11/19/[address] active 9 FLACCID NEUROPATHIC BLADDER, NOT ELSEWHERE CLASSIFIED 11/19/[address] active 10 FRACTURE OF UNSPECIFIED PART OF NECK OF RIGHT FEMUR, SUBSEQUENT ENCOUNTER FOR CLOSED FRACTURE WITH ROUTINE HEALING 11/19/[address] active 11 HYPERLIPIDEMIA, UNSPECIFIED 11/19/[address] active 12 SHELTER (CURRENT) USE OF ANTICOAGULANTS 11/19/[address] active 13 OTHER ABNORMALITIES OF GAIT AND MOBILITY 11/19/[address] active 14 PAIN, UNSPECIFIED 11/19/[address] active 15 POLYNEUROPATHY, UNSPECIFIED 11/19/[address] active 16 PRESENCE OF CORONARY ANGIOPLASTY IMPLANT AND GRAFT 11/19/[address] active 17 TYPE 2 DIABETES MELLITUS WITHOUT COMPLICATIONS 11/19/[address] active Reason for Referral No Reasons for Referral Entered Social History Social History Observation Description Start Date End Date Code Code System Current Smoking Status Tobacco smoking consumption unknown 553059682 SNOMED CT Sex Assigned At Male 1940 27629-5 [facility] Gender Identity Male 24160858596307 [address] Sexual Orientation Heterosexual (finding) 28581581 SNOMED CT Vital Signs Code Code System Vitals Name Values and Units Timing Information 73205-9 [facility] Weight Cvpse=353.5 Units=Lbs 07/2024 9279-1 [facility] Respiratory Rate Value=18.0 Units=/m in 11/28/2024 8462-4 [facility] Blood Pressure-Diastolic Value=92 Un its=mmHg 11/28/2024 8480-6 [facility] Blood Pressure-Systolic Tmkmy=871 Un its=mmHg 11/28/2024 8310-5 [facility] Body Temperature Value=97.7 Units= F 11/28/2024 8867-4 [facility] Heart rate Value=89.0 Units=/min 07/2024 24048-8 [facility] O2 % BldC Oximetry Value=98.0 Units= % 11/28/2024 2339-0 [facility] Blood Sugar Xzyfx=595.0 Units=mg/dL 11/28/2024 38061-8 [facility] Pain Level Value=0.0 11/28/2024 8302-2 [facility] Height Value=71.0 Units=Inches 11/25/2024
[2025-01-12] MEDS: ONDANSETRON 2 MG/ML inj 4 MG IVP (16:49)
[2025-01-12 17:24] LABS: Hematocrit* 35.2 % (37.0-53.0); Hemoglobin* 11.9 gm/dL (13.5-17.5); Immature Granulocytes Abs Auto 0.01 K/uL (0.00-0.30); Immature Granulocytes Pct Auto 0.2 %; Lymphocytes Absolute Auto 1.95 K/uL (0.90-2.90); Mean Corpuscular HGB Conc 34 gm/dL (32-36); Mean Corpuscular Hemoglobin 31 pg (26-34); Mean Corpuscular Volume 91 fL (80-100); RDW Coefficient of Variation % 13.4 % (11.5-15.5); Red Blood Count* 3.87 m/uL (4.30-5.90); White Blood Count* 5.85 K/uL (4.50-11.00)
[2025-01-12 17:29] LABS: Slide Review Reflex No
[2025-01-12 17:41] LABS: Ionized Calcium* 0.74 mmol/L (1.11-1.30); Lactate* 2.0 mmol/L (0.5-1.9)
[2025-01-12] MEDS: MAGNESIUM IV 2 GM/50 ML PIGGYBACK IVPB ×2 (18:37→21:00)
[2025-01-12] MEDS: CALCIUM GLUC 1,000MG/50 ML 1,000 MG/50 ML BAG 100 MG IVPB ×2 (18:41→21:00)
[2025-01-12 19:44] LABS: Ionized Calcium* 0.99 mmol/L (1.11-1.30)
--- NOTE | 2025-01-12 22:17 | PM.IMHP1 ---
Assessment and Plan Assessment and plan (1) Hypocalcemia: Problem comment: - unclear source - hold PPI, check PTH and Vitamin D, continue to replace IV, follow on telemetry Status: Acute (2) Hypomagnesemia: Problem comment: - hold PPI, continue to replace this + calcium, follow closely Status: Acute (3) Diabetes mellitus type 2, controlled: Problem comment: - A1C was 5.6 on 12/26/24, holding Metformin and Glipizide Status: Acute (4) Weakness: Problem comment: - likely related to above, expect improvement as electrolytes improve - therapy evaluations ordered Status: Acute (5) Atonic bladder: Problem comment: - self catheterization at home QID, Vallecillo placed in ER 01/12/25 Status: Acute (6) Coronary artery disease: Problem comment: - recurrent interventions with coronary stents (2006, 2013, 2016 angioplasty, 2019, 2021, 2024). Continue Plavix and aspirin Status: Acute (7) Essential tremor: Problem comment: - diagnosis 10/2024, Propanolol initiated at that time which was helpful until 01/06/25 when he self-discontinued Status: Acute (8) Hypertension: Problem comment: - continue home medications Status: Acute (9) Anemia: Problem comment: - chronic, normocytic, mild, has been 10.3-11.0 since hip fracture in 10/2024 - 11.9 on 01/12/25 Status: Acute (10) Weight loss: Problem comment: - has lost 12kg since hospitalization in 10/2024 for hip fracture, unclear if this is related to current electrolyte disturbance - nutrition consult Status: Acute Plan - per above (IV electrolyte replacement, follow labs, IVFs) - daughter updated bedside, questions answered Hospitalist- H&P: HPI History of Present Illness Date Seen: 01/12/25 Chief complaint: UTI Narrative: Pratik Madera is a 84 year old male who presented emergency room with family for weakness and confusion over the past 2-3 days. He has also had decreased po intake and generalized achiness. History of UTIs, and family was concerned that he had another infection. ER Course and Findings: - Lactate 2.8 -> 2.0 - Calcium 6.4 with ionized Calcium 0.74, normal K and Na - Magnesium 0.4 - reassuring CBC, UA with 1+ ketones, few bacteria - no acute arrhythmia or concerning change on EKG - vallecillo catheter placed - given IV Magnesium and IV Calcium with improvement, continuing to receive IV supplementation as he arrives on the floor He is admitted to the hospital for IV replacement of magnesium and calcium, in addition to cardiac monitoring and workup for severe electrolyte abnormalities. History is reviewed and updated below, PCP is Dr. Nelson. Hospitalized here in October for a hip fracture; discharged to [facility] for rehab and during that stay required another hospitalization for UTI. Has been home from [facility] since 12/21/24 and this has been going well. Review of Systems Status of ROS: Reports: 10 or more systems reviewed and unremarkable except as noted in History and below Narrative: - chronic essential tremor, was doing well on Propranolol but started to note that it was less effective and self-d/c'd last week - specifically denies chest pain or palpitations - 20+ weight loss since hip fracture Medical Decision Making Medical Decision Making Code Status: DNR Has patient completed a Health Care Directive: Yes During This Stay, Who Would You Like To Make Decisions For You In The Event You Are Unable To Make Them For Yourself?: Yam[facility] Medical History (Updated 01/12/25 @ 23:59 by Gladis Stevens MD) Cognitive impairment ?R41.89 - Other symptoms and signs involving cognitive functions and awareness (ICD-10) Essential tremor ?G25.0 - Essential tremor (ICD-10) Impairment of balance ?R26.89 - Other abnormalities of gait and mobility (ICD-10) Peripheral neuropathy ?G62.9 - Polyneuropathy, unspecified (ICD-10) Hyperlipidemia ?E78.5 - Hyperlipidemia, unspecified (ICD-10) Hypertension ?I10 - Essential (primary) hypertension (ICD-10) Anemia ?D64.9 - Anemia, unspecified (ICD-10) Stage 3 chronic kidney disease ?N18.30 - Chronic kidney disease, stage 3 unspecified (ICD-10) Diabetes mellitus type 2, controlled ?E11.9 - Type 2 diabetes mellitus without complications (ICD-10) Atonic bladder ?N31.2 - Flaccid neuropathic bladder, not elsewhere classified (ICD-10) Peripheral vascular disease ?I73.9 - Peripheral vascular disease, unspecified (ICD-10) Coronary artery disease ?I25.10 - Atherosclerotic heart disease of [place] coronary artery without angina pectoris (ICD-10) Surgical History (Updated 12/29/24 @ 10:16 by Michael Mueller MD) History of right hip hemiarthroplasty (11/14/24) ?Z96.641 - Presence of right artificial hip joint (ICD-10) History of laparoscopy ?Z98.890 - Other specified postprocedural states (ICD-10) History of hernia repair ?Z98.890 - Other specified postprocedural states (ICD-10) ?Z87.19 - Personal history of other diseases of the digestive system (ICD-10) History of coronary artery stent placement ?Z95.5 - Presence of coronary angioplasty implant and graft (ICD-10) Family History Father Heart disease Stroke Sister Heart disease Brother Heart disease Diabetes Social History (Updated 01/12/25 @ 23:30 by Gladis Stevens MD) Narrative: He lives in [place] with his . 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 He does not smoke. He rarely drinks alcohol. Code status is DNR. Yamilex is healthcare power of commonwealth attorney. What is your current living situation?: I presently have a place to live Problems where you live: no known problems In the past 12 months, utilities in danger of being shut off: no In past 12 months, lack of transportation kept you from medical appts, meetings, work, or getting things needed for daily living: no In the past 12 mos, have been you worried that your food would run out before you had money to buy more?: never true In the past 12 mos, the food you bought just didn't last and you didn't have money to buy more?: never true Highest level of school completed/degree received: 8th grade Smoking Status: Former smoker How often do you have a drink containing alcohol: never AUDIT-C Alcohol total score: 0 Non-prescribed substance use: denies use Caffeine: Yes How often does anyone, including family, friends and others, physically hurt you: never How often does anyone, including family, friends and others, insult or talk down to you: never How often does anyone, including family, friends and others, threaten you with harm: never How often does anyone, including family, friends and others, scream or curse at you: never service: No Meds Home Medications and Allergies Home Medications ?Medication ?Instructions ?Recorded ?Confirmed ?Type clopidogrel 75 mg tablet 75 mg PO DAILY 10/25/21 01/12/25 History glipizide 5 mg tablet 5 mg PO BIDWM 10/25/21 01/12/25 History isosorbide mononitrate 30 mg 30 mg PO DAILY 10/25/21 01/12/25 History tablet,extended release 24 hr losartan 50 mg tablet 50 mg PO DAILY 10/25/21 01/12/25 History nitroglycerin 0.4 mg sublingual 0.4 mg sublingual Q5M PRN 10/25/21 01/12/25 History tablet rosuvastatin 20 mg tablet 10 mg PO HS 10/25/21 01/12/25 History metformin 1,000 mg tablet 1,000 mg PO BID 11/14/24 01/12/25 History ranolazine 500 mg tablet,extended 500 mg PO Q12H 11/14/24 01/12/25 History release,12 hr aspirin 81 mg tablet 81 mg PO DAILY #30 tabs 11/17/24 01/12/25 Rx docusate sodium 100 mg capsule 100 mg PO BID PRN Constipation #60 11/17/24 01/12/25 Rx caps omeprazole 20 mg capsule,delayed 20 mg PO BID #60 caps 11/30/24 01/12/25 Rx release Allergies Allergy/AdvReac Type Severity Reaction Status Date / Time atenolol Allergy Unknown Verified 01/12/25 15:35 atorvastatin Allergy Unknown Myalgia Verified 01/12/25 15:35 lisinopril AdvReac Unknown Cough Verified 01/12/25 15:35 metoprolol AdvReac Unknown Headache Verified 01/12/25 15:35 Exam Narrative: Exam Narrative: GEN: Awake and alert, nontoxic, laying comfortably in bed HEENT: Normal external ears, EOMIs bilaterally, no scleral icterus CV: RRR, No concerning murmurs R: LCTA bilaterally Ext: Wearing compression hose BLE, trace edema Skin: No concerning skin lesions or rashes on exposed skin Neuro: + resting tremor of BUEs Psych: Appropriate Const: Vital Signs, click to edit/add: Vital Signs - 24 hr 01/12/25 15:31 01/12/25 18:34 01/12/25 18:45 Temperature 97.9 F Pulse Rate 67 79 Pulse Rate [Pulse Oximeter] 95 Respiratory Rate 16 Blood Pressure Blood Pressure [Ri ght Upper Arm] 170/95 H Pulse Oximetry 98 96 96 Oxygen Delivery Me thod Room Air 01/12/25 18:48 01/12/25 19:00 01/12/25 19:15 Temperature Pulse Rate 76 89 79 Pulse Rate [Pulse Oximeter] Respiratory Rate 12 Blood Pressure 150/79 H Blood Pressure [Ri ght Upper Arm] Pulse Oximetry 95 95 97 Oxygen Delivery Me thod Room Air 01/12/25 19:30 01/12/25 19:45 01/12/25 20:00 Temperature Pulse Rate 82 80 80 Pulse Rate [Pulse Oximeter] Respiratory Rate 25 H Blood Pressure Blood Pressure [Ri ght Upper Arm] Pulse Oximetry 96 96 96 Oxygen Delivery Me thod 01/12/25 20:15 01/12/25 20:25 01/12/25 20:30 Temperature Pulse Rate 76 78 81 Pulse Rate [Pulse Oximeter] Respiratory Rate 17 17 Blood Pressure 148/71 H Blood Pressure [Ri ght Upper Arm] Pulse Oximetry 94 96 98 Oxygen Delivery Me thod 01/12/25 20:45 01/12/25 21:00 01/12/25 21:15 Temperature Pulse Rate 86 72 79 Pulse Rate [Pulse Oximeter] Respiratory Rate 19 16 10 L Blood Pressure Blood Pressure [Ri ght Upper Arm] Pulse Oximetry 89 94 96 Oxygen Delivery Me thod 01/12/25 21:30 01/12/25 21:45 01/12/25 21:54 Temperature Pulse Rate 80 76 76 Pulse Rate [Pulse Oximeter] Respiratory Rate 11 L 14 16 Blood Pressure 145/77 H Blood Pressure [Ri ght Upper Arm] Pulse Oximetry 98 94 96 Oxygen Delivery Me thod Room Air Hospitalist - H&P: Result Labs Labs: Short CBC 01/12/25 Range/Units 17:01 WBC 5.85 (4.50-11.00) K/uL Hgb 11.9 L (13.5-17.5) gm/dL Hct 35.2 L (37.0-53.0) % Plt Count 172 (140-440) K/uL BMP 01/12/25 16:21 Sodium 137 Potassium 4.3 Chloride 100 Carbon Dioxide 22 BUN 11 Creatinine 0.9 Glucose 139 H Calcium 6.4 L Cardiac Enzymes 01/12/25 Range/Units 16:21 Troponin I < 0.01 (0.01-0.04) ng/mL Liver Function 01/12/25 Range/Units 16:21 Total Bilirubin 0.8 (0.1-1.5) mg/dL AST 37 H (12-35) U/L ALT 19 (4-50) U/L Alkaline Phosphatase 38 L (40-150) U/L Albumin 3.7 (3.3-5.0) g/dL Urine 01/12/25 Range/Units 16:39 Urine Color Bridget A (Yellow) Urine Appearance Clear (Clear) Urine pH 5.0 (5.0-8.5) Ur Specific [place] >= 1.030 (1.000-1.030) Urine Protein 1+ A (Negative) Urine Glucose (UA) Negative (Negative)
[2025-01-12 23:01] LABS: Vitamin D 25 Hydroxy* 36 ng/mL (30-80)
[2025-01-12 23:04] LABS: PTH Intact* 53.1 pg/mL (14.2-75.2)
[2025-01-12 23:22] LABS: Ionized Calcium* 0.88 mmol/L (1.11-1.30)
[2025-01-13] VITALS (10 sets, daily range): BP systolic 120–172; BP diastolic 61–87; PULSE 60–86; RESP 16–20; TEMP 36.3–37.3; O2SAT 91–98; BMI 25.5
[2025-01-13] MEDS: CALCIUM GLUC 1,000MG/50 ML 1,000 MG/50 ML BAG 100 MG IVPB ×4 (00:55→23:13)
[2025-01-13 05:49] LABS: Ionized Calcium* 0.91 mmol/L (1.11-1.30)
[2025-01-13 05:57] LABS: Hematocrit* 34.9 % (37.0-53.0); Hemoglobin* 11.4 gm/dL (13.5-17.5); Immature Granulocytes Abs Auto 0.01 K/uL (0.00-0.30); Immature Granulocytes Pct Auto 0.2 %; Lymphocytes Absolute Auto 1.51 K/uL (0.90-2.90); Mean Corpuscular HGB Conc 33 gm/dL (32-36); Mean Corpuscular Hemoglobin 30 pg (26-34); Mean Corpuscular Volume 92 fL (80-100); RDW Coefficient of Variation % 13.1 % (11.5-15.5); Red Blood Count* 3.79 m/uL (4.30-5.90); White Blood Count* 6.39 K/uL (4.50-11.00)
[2025-01-13 06:00] LABS: Slide Review Reflex No
[2025-01-13 06:08] LABS: Albumin* 3.3 g/dL (3.3-5.0); Chloride* 103 mmol/L (96-114)
[2025-01-13 06:09] LABS: Potassium* 3.7 mmol/L (3.6-5.1); Sodium* 137 mmol/L (135-149)
[2025-01-13 06:11] LABS: Alanine Aminotransferase* 15 U/L (4-50); Alkaline Phosphatase* 56 U/L (40-150); Anion Gap 11 mEq/L (7-15); Aspartate Amino Transferase* 33 U/L (12-35); Bilirubin Total* 0.5 mg/dL (0.1-1.5); Blood Urea Nitrogen* 8 mg/dL (7-30); Carbon Dioxide* 23 mmol/L (20-32); Creatinine* 0.9 mg/dL (0.5-1.5); Est. Creatinine Clearance* 56.48; Estimated Glomerular Filt Rate 83 ml/min; Total Protein* 5.6 g/dL (6.0-8.3)
[2025-01-13 06:12] LABS: Calcium* 6.6 mg/dL (8.4-10.6); Glucose* 122 mg/dL (60-115)
--- NOTE | 2025-01-13 06:49 | PC.NURSE ---
Arrived at 2300:?Pt pleasant,?alert?and oriented,?though?does have periods of confusion.?Pt started to flip into?afib?around 0030, from there?on?was in and out of it throughout the shift.?Hari notified, ?stated?this is?likely baseline?for the pt.?When not in?afib?pt?was in sinus arrhythmia or sinus?rhythm with a 1st?degree AV.?Pt?hypertensive as?well, otherwise VSS.?Pt denies nausea. Noticeable tremor of the hands which?impacts?fine motor skills. Lora patent and?draining.?Pt in bed, appears to be?resting, call light within reach.??
[2025-01-13] MEDS: LOSARTAN POTASSIUM 50 MG TABLET PO (08:59)
[2025-01-13] MEDS: ISOSORBIDE MONONITRATE ER 30 MG TAB PO (08:59)
[2025-01-13] MEDS: ASPIRIN 81 MG TABLET EC PO (08:59)
[2025-01-13] MEDS: CLOPIDOGREL 75 MG TABLET PO (08:59)
[2025-01-13] MEDS: CALCIUM CARBONATE 500 MG TABLET PO (08:59)
[2025-01-13] MEDS: MAGNESIUM OXIDE 400 MG TABLET PO ×2 (08:59→21:20)
--- NOTE | 2025-01-13 09:49 | W.PC.NUTR.HO ---
Hospital Nutrition Assessment Patient Data Patient Gender: Male Patient Age: 84 Height: 5 ft 11 in (180.34 cm) Weight: 183 lb 3.2 oz (83.27 kg) Body Mass Index: 25.5 Weight Calculations [place] Body Weight (lbs): 172.00 [place] Body Weight (kg): 78.02 Percent of [place] Body Weight: 107 Adjusted Body Weight (lbs): 174.80 Adjusted Body Weight (kg): 79.29 Basal Energy Expenditure (BEE): 1528.69 Basal Energy Expenditure (BEE) Adjusted Weight: 1476.33 Activity/Stress Factors Injury Factor/Activity Factor Value: 1.2 Total Energy Requirements Kcal requirements (current wt): 1953.432 Kcal requirements (adj wt): 1846.404 Protein Need (current wt): 1.0 Total Protein (current wt): 89.386 Protein Need (adj wt): 1.0 Total Protein (adj wt): 82.900 Fluid Need (current wt): 30 Total Fluid (current wt): 2681.581 Fluid Need (adj wt): 30 Total Fluid (adj wt): 2487.00 Nutrition Assessment Diet Order: Regular Food Modified for Dysphagia: 7-Regular Liquid Modified for Dysphagia: 0-Thin Allergies: NKFA Appetite Prior to Admission: Poor Appetite and Intake: No intakes this admit. Hx Appetite Changes: Yes (Per ER report; mildly nauseous, very poor appetite and not much oral intake) Hx Weight Loss: Yes (-7.5% (15 lbs) in 6 weeks, this is significant loss) Hx Weight Gain: No Nausea: Yes (mild per family) Vomiting: No Diarrhea: No Hx Constipation: No Chewing Difficulty: No Swallowing Difficulty: No Pressure Ulcer: No Diagnosis/Symptom or Procedure: Low calcium and magnesium Clinical History: Medical history includes but not limited to coronary artery disease s/p stenting 6 months ago, diabetes mellitus, peripheral neuropathy, hypertension, Stage 3 chronic kidney disease, s/p Right hip bipolar hemiarthroplasty with Dr. Mueller on 11/14/24 following a fall on 11/13/2024. He was hospitalized from 11/28/24 to 11/30/24 for Acute metabolic encephalopathy and duodenitis. Current Living Situation: Lives currently at home with . He was a resident at [facility] for rehab following Right hip bipolar hemiarthroplasty until a few weeks ago, discharging from [facility] 12/21/24. Medications Medications: reviewed. Lab Results Lab Results: reviewed. Assessment/Plan PES Statement: Unintentional significant weight loss related to very poor appetite and low intakes as evidecened by loss of about 15 lbs within 6 weeks, 7.5% Nutritional Assessment Summary: RDN with nutrition screen related to poor appetite, significant weight change. Patient admitted for altered mental status. Was admitted from 11/13 to 11/18 for hip fracture requiring MARIA ALEJANDRA. Patient discharged after that to [facility] for rehab. Meal intakes minimal since admit. Weight history: Patient's weight has fluctuated since last admit. 11/14/2025 - 191lb 8oz 11/18/2024 - 210lb 11/29/2024 - 197lb 1oz 12/29/2024 - 198 lb 01/13/2025 - 183lb 3.2 oz Weight loss of ~15lbs in 6 weeks is a significant weight loss of 7.5%. Of note, some weights in history have been obtained using bedscale vs. standing scale. During a previous hospitalization, RDN visited with Patient and reported liked Ensure Enlive and agreed to receive it twice daily. RDN will order this same supplement and frequency at this time. Ensure Enlive BID to provide and additional 700 kcals and 40 grams protein to help meet estimated daily energy needs. With significant weight loss and poor appetite/intakes, I am concern patient may be at risk for malnutrition - recommending MD to further assess. Discharge Plan-Living Situation: TBD Goals: Adequate oral intake of 50%+ meals and supplements. Plan/Recommendation: Regular diet per MD order. Offer Enlive BID or per patient preference. RDN will continue to monitor and follow-up prn. Malnutrition Assessment Current Energy Intake: Less Than 75% Estimated Timeframe Of Energy Intake: Greater Than Or Equal To 7 Days (Approximately two weeks) Weight Changes: >5% In 1 Month Recommended Malnutrition Diagnosis: Severe Protein-Calorie Malnutrition and Further Physical Evaluation Required By MD To Determine In The Context: Acute Injury/Illness Based On: Weight Loss and Inadequate Energy Intakes
[2025-01-13] MEDS: SODIUM CHLORIDE 0.9 % (FLUSH) 10 ML SYRINGE 5 ML IVF (11:24)
[2025-01-13] MEDS: MAGNESIUM IV 2 GM/50 ML PIGGYBACK IVPB (12:13)
--- NOTE | 2025-01-13 12:44 | P.IMPN_ITS ---
Assessment and Plan Assessment and plan (1) Hypocalcemia: Problem comment: - suspect due to severe hypomagnisemia causing PTH suppression and resistance (PTH level is wnl) - symptoms improving - continue to prioritize Mg replacement until level has normalized - continue to hold PPI, replace calcium IV - if persistent hypocalcemia despite normalizing Mg, consider further w/u for hypoparathyroidism (inappropriately normal PTH in the setting of hypocalcemia) Status: Acute (2) Hypomagnesemia: Problem comment: - hold PPI, continue to replace this + calcium, follow closely - cause is unclear, possibly GI related as patient has had poor oral intake and wt loss recently. Hold PPI, losartan. Nutrition consult ordered. May need further GI work up. Recent HgbA1c was 5.6%, which rules out uncontrolled DM. Possible RTA? Cr stable, Hold losartan. Status: Acute (3) Diabetes mellitus type 2, controlled: Problem comment: - A1C was 5.6 on 12/26/24, holding Metformin and Glipizide - POC glucoses elevated, may make repletion of calcium challenging. Start ISS. Status: Chronic (4) Weakness: Problem comment: - likely related to above - improving as electrolytes improve - therapy evaluation today Status: Acute (5) Atonic bladder: Problem comment: - self catheterization at home QID, Lora placed in ER 01/12/25 - May be able to return to self catheterization as symptoms improve Status: Acute (6) Coronary artery disease: Problem comment: - recurrent interventions with coronary stents (2006, 2013, 2017 angioplasty, 2019, 2021, 2024). Continue Plavix and aspirin Status: Chronic (7) Essential tremor: Problem comment: - diagnosis 10/2024, Propanolol initiated at that time which was helpful until 01/06/25 when he self-discontinued - exacerbated by electrolyte disturbances Status: Acute (8) Hypertension: Problem comment: - continue home medications (holding losartan) Status: Acute (9) Anemia: Problem comment: - chronic, normocytic, mild, has been 10.3-11.0 since hip fracture in 10/2024 - 11.9 on 01/12/25 - 01/13 stable at 11.4 Status: Acute (10) Weight loss: Problem comment: - has lost 12kg since hospitalization in 10/2024 for hip fracture, unclear if this is related to current electrolyte disturbance - nutrition consult - nutritional supplements Status: Acute Plan - per above (IV electrolyte replacement, follow labs, IVFs) - daughter updated bedside, questions answered Total Time Spent Total Time Spent: Today I spent 50 minutes seeing the patient, discussing with the patient and his , reviewing Expanse and EPIC notes/diagnostics/labs, discussing the care plan with our care team that includes social work, PT/OT, pharmacy, RT, long-term and documenting my impressions and plan in the medical record. Subjective Time Seen by Provider: 10:50 Date Seen: 01/13/25 Interval history: Rosales's tells me that Rosales looks much better today and he is sitting up straighter, holding his head up and swallowing better. She notes that he was slumped over and unable to sit up or even pick his head up at home. He notes that his appetite has come back and also notes better swallowing. They both tell me that yesterday he had a lot of tremor with activity that has gotten a little bit better today. She is concerned about his poor appetitie and tells me he has lost weight over the last few months since getting his hip fixed. Also, he self caths at home, but was so tremulous that she had to take over this job. She said although it was difficult, she is able to do it did not foresee this as a problem going home in the future. Exam Narrative: Exam Narrative: General: No acute distress. Awake, alert, oriented. Sitting up straight in the bedside chair. No pallor. No jaundice. No tremors at rest. Oropharynx: Clear. Mucous membranes moist. Cardiovascular: Regular rate and rhythm. No murmurs, gallops, or rubs. Respiratory: Clear to auscultation bilaterally. No wheezes or crackles. Abdomen: Bowel sounds present. Soft, nondistended, nontender. Genitourinary: Lora catheter is in place draining clear light yellow urine. Extremities: Trace bilateral lower extremity edema. Const: Vital Signs, click to edit/add: Vital Signs - 24 hr 01/12/25 15:31 01/12/25 18:34 01/12/25 18:45 Temperature 97.9 F Pulse Rate 67 79 Pulse Rate [Pulse Oximeter] 95 Respiratory Rate 16 Blood Pressure Blood Pressure [Le ft Arm] Blood Pressure [Ri ght Upper Arm] 170/95 H Pulse Oximetry 98 96 96 Oxygen Delivery Me thod Room Air 01/12/25 18:48 01/12/25 19:00 01/12/25 19:15 Temperature Pulse Rate 76 89 79 Pulse Rate [Pulse Oximeter] Respiratory Rate 12 Blood Pressure 150/79 H Blood Pressure [Le ft Arm] Blood Pressure [Ri ght Upper Arm] Pulse Oximetry 95 95 97 Oxygen Delivery Me thod Room Air 01/12/25 19:30 01/12/25 19:45 01/12/25 20:00 Temperature Pulse Rate 82 80 80 Pulse Rate [Pulse Oximeter] Respiratory Rate 25 H Blood Pressure Blood Pressure [Le ft Arm] Blood Pressure [Ri ght Upper Arm] Pulse Oximetry 96 96 96 Oxygen Delivery Me thod 01/12/25 20:15 01/12/25 20:25 01/12/25 20:30 Temperature Pulse Rate 76 78 81 Pulse Rate [Pulse Oximeter] Respiratory Rate 17 17 Blood Pressure 148/71 H Blood Pressure [Le ft Arm] Blood Pressure [Ri ght Upper Arm] Pulse Oximetry 94 96 98 Oxygen Delivery Me thod 01/12/25 20:45 01/12/25 21:00 01/12/25 21:15 Temperature Pulse Rate 86 72 79 Pulse Rate [Pulse Oximeter] Respiratory Rate 19 16 10 L Blood Pressure Blood Pressure [Le ft Arm] Blood Pressure [Ri ght Upper Arm] Pulse Oximetry 89 94 96 Oxygen Delivery Me thod 01/12/25 21:30 01/12/25 21:45 01/12/25 21:54 Temperature Pulse Rate 80 76 76 Pulse Rate [Pulse Oximeter] Respiratory Rate 11 L 14 16 Blood Pressure 145/77 H Blood Pressure [Le ft Arm] Blood Pressure [Ri ght Upper Arm] Pulse Oximetry 98 94 96 Oxygen Delivery Me thod Room Air 01/12/25 23:00 01/12/25 23:00 01/12/25 23:00 Temperature 97.3 F L Pulse Rate Pulse Rate [Pulse Oximeter] 84 84 Respiratory Rate 18 18 18 Blood Pressure Blood Pressure [Le ft Arm] 173/88 H Blood Pressure [Ri ght Upper Arm] Pulse Oximetry 98 98 Oxygen Delivery Me thod Room Air 01/12/25 23:35 01/13/25 04:06 01/13/25 07:15 Temperature 98.2 F Pulse Rate 72 69 Pulse Rate [Pulse Oximeter] 67 Respiratory Rate 16 Blood Pressure Blood Pressure [Le ft Arm] 162/87 H Blood Pressure [Ri ght Upper Arm] Pulse Oximetry 98 Oxygen Delivery Me thod Room Air 01/13/25 07:19 01/13/25 07:19 01/13/25 11:22 Temperature 97.6 F 97.4 F L Pulse Rate Pulse Rate [Pulse Oximeter] 70 70 84 Respiratory Rate 18 18 Blood Pressure Blood Pressure [Le ft Arm] 172/83 H 120/84 Blood Pressure [Ri ght Upper Arm] Pulse Oximetry 97 96 Oxygen Delivery Me thod Room Air Room Air Labs Labs: Laboratory Results - last 24 hr 01/12/25 01/12/25 01/12/25 16:21 16:39 17:01 WBC 5.85 RBC 3.87 L Hgb 11.9 L Hct 35.2 L MCV 91 MCH 31 MCHC 34 RDW Coeff of Elan 13.4 Plt Count 172 Neut % (Auto) 52.1 Lymph % (Auto) 33.3 [place] % (Auto) 10.9 Eos % (Auto) 3.2 Baso % (Auto) 0.3 Neut # (Auto) 3.04 Lymph # (Auto) 1.95 [place] # (Auto) 0.60 Eos # (Auto) 0.19 Baso # (Auto) 0.02 Abs Immat Gran (auto) 0.01 Imm/Tot Granulo (auto) 0.2 Sodium 137 Potassium 4.3 Chloride 100 Carbon Dioxide 22 Anion Gap 15 BUN 11 Creatinine 0.9 Estimated Creat Clear 56.48 Estimated GFR 83 Glucose 139 H Lactate 2.8 H Calcium 6.4 L Ionized Calcium Parul Phosphorus Magnesium Total Bilirubin 0.8 AST 37 H ALT 19 Alkaline Phosphatase 38 L Troponin I < 0.01 Total Protein 5.9 L Albumin 3.7 Lipase 46 25-OH Vitamin D Total 36 TSH PTH Intact 53.1 Urine Color Bridget A Urine Appearance Clear Urine pH 5.0 Ur Specific [place] >= 1.030 Urine Protein 1+ A Urine Glucose (UA) Negative Urine Ketones 1+ A Urine Blood Negative Urine Nitrite Negative Urine Bilirubin 1+ A Urine Urobilinogen 0.2 Ur Leukocyte Esterase 1+ A Urine RBC 0-2 Urine WBC 2-5 Ur Squamous Epith Cells Few Urine Bacteria Few A Fine Granular Casts Few A Lab Acknowledgement 01/12/25 01/12/25 01/12/25 17:06 17:40 19:25 WBC RBC Hgb Hct MCV MCH MCHC RDW Coeff of Elan Plt Count Neut % (Auto) Lymph % (Auto) [place] % (Auto) Eos % (Auto) Baso % (Auto) Neut # (Auto) Lymph # (Auto) [place] # (Auto) Eos # (Auto) Baso # (Auto) Abs Immat Gran (auto) Imm/Tot Granulo (auto) Sodium Potassium Chloride Carbon Dioxide Anion Gap BUN Creatinine Estimated Creat Clear Estimated GFR Glucose Lactate 2.0 H Calcium Ionized Calcium Parul 0.74 L 0.99 L Phosphorus 4.8 H Magnesium 0.4 L* 0.8 L* Total Bilirubin AST ALT Alkaline Phosphatase Troponin I Total Protein Albumin Lipase 25-OH Vitamin D Total TSH PTH Intact Urine Color Urine Appearance Urine pH Ur Specific [place] Urine Protein Urine Glucose (UA) Urine Ketones Urine Blood Urine Nitrite Urine Bilirubin Urine Urobilinogen Ur Leukocyte Esterase Urine RBC Urine WBC Ur Squamous Epith Cells Urine Bacteria Fine Granular Casts Lab Acknowledgement 01/12/25 01/12/25 01/13/25 22:21 23:18 05:17 WBC 6.39 RBC 3.79 L Hgb 11.4 L Hct 34.9 L MCV 92 MCH 30 MCHC 33 RDW Coeff of Elan 13.1 Plt Count 140 Neut % (Auto) 63.6 Lymph % (Auto) 23.6 [place] % (Auto) 8.0 Eos % (Auto) 4.1 Baso % (Auto) 0.5 Neut # (Auto) 4.07 Lymph # (Auto) 1.51 [place] # (Auto) 0.50 Eos # (Auto) 0.26 Baso # (Auto) 0.03 Abs Immat Gran (auto) 0.01 Imm/Tot Granulo (auto) 0.2 Sodium 137 Potassium 3.7 Chloride 103 Carbon Dioxide 23 Anion Gap 11 BUN 8 Creatinine 0.9 Estimated Creat Clear 56.48 Estimated GFR 83 Glucose 122 H Lactate Calcium 6.6 L Ionized Calcium Parul 0.88 L 0.91 L Phosphorus 4.6 H 4.3 Magnesium 1.5 1.4 L Total Bilirubin 0.5 AST 33 ALT 15 Alkaline Phosphatase 56 Troponin I Total Protein 5.6 L Albumin 3.3 Lipase 25-OH Vitamin D Total TSH 1.150 PTH Intact Urine Color Urine Appearance Urine pH Ur Specific [place] Urine Protein Urine Glucose (UA) Urine Ketones Urine Blood Urine Nitrite Urine Bilirubin Urine Urobilinogen Ur Leukocyte Esterase Urine RBC Urine WBC Ur Squamous Epith Cells Urine Bacteria Fine Granular Casts Lab Acknowledgement Test Added
[2025-01-13 13:48] LABS: Ionized Calcium* 0.96 mmol/L (1.11-1.30)
--- NOTE | 2025-01-13 20:13 | PC.NURSE ---
shift note: pt AOx4, but forgetful. family verbalizes this is normal lately. pt tolerating regular diet. denies pain. pt has tremors. up to stand w/ RN & very dizzy and not steady on foot. orthostatic BP performed by OT; MD notified of results. family bedside & supportive. edema wear in place. vallecillo catheter in place. pt to bed w/ RN and STEVEN- 2 assist needed to pivot into bed.
[2025-01-13] MEDS: MAGNESIUM SULF 1 G/100 ML 1 GM/100 ML PIGGYBACK IVPB (20:15)
[2025-01-13] MEDS: ROSUVASTATIN CALCIUM 10 MG TABLET PO (21:20)
[2025-01-13 22:17] LABS: Ionized Calcium* 0.99 mmol/L (1.11-1.30)
[2025-01-14] VITALS (10 sets, daily range): BP systolic 139–183; BP diastolic 72–97; PULSE 67–80; RESP 16–24; TEMP 36.4–36.8; O2SAT 94–100
--- NOTE | 2025-01-14 05:24 | PC.NURSE ---
[id number]: Patient pleasant and cooperative. A&Ox3 w/forgetfulness. A2/pivot. Weak. Denies pain. Denies N/V. Afebrile. Denies CP. Geno patent. Frequent T&R. Appeared to rest well during noc.
[2025-01-14 06:26] LABS: Ionized Calcium* 1.01 mmol/L (1.11-1.30)
[2025-01-14 06:41] LABS: Chloride* 104 mmol/L (96-114); Sodium* 136 mmol/L (135-149)
[2025-01-14 06:42] LABS: Potassium* 3.5 mmol/L (3.6-5.1)
[2025-01-14 06:44] LABS: Anion Gap 9 mEq/L (7-15); Blood Urea Nitrogen* 6 mg/dL (7-30); Calcium* 7.1 mg/dL (8.4-10.6); Carbon Dioxide* 23 mmol/L (20-32); Creatinine* 0.8 mg/dL (0.5-1.5); Est. Creatinine Clearance* 56.48; Estimated Glomerular Filt Rate 86 ml/min; Glucose* 155 mg/dL (60-115)
[2025-01-14] MEDS: CALCIUM GLUC 1,000MG/50 ML 1,000 MG/50 ML BAG 100 MG IVPB ×2 (08:01→08:53)
[2025-01-14] MEDS: POTASSIUM BICARB 25 MEQ EFFERVESCENT TAB PO (08:01)
[2025-01-14] MEDS: INSULIN ASPART 100 UNIT/ML SUBCUT ×4 (08:11→20:41)
[2025-01-14] MEDS: CALCIUM CARBONATE 500 MG TABLET PO ×2 (08:53→20:42)
[2025-01-14] MEDS: ISOSORBIDE MONONITRATE ER 30 MG TAB PO (08:54)
[2025-01-14] MEDS: CLOPIDOGREL 75 MG TABLET PO (08:54)
[2025-01-14] MEDS: ASPIRIN 81 MG TABLET EC PO (08:54)
[2025-01-14] MEDS: SODIUM CHLORIDE 0.9 % (FLUSH) 10 ML SYRINGE 5 ML IVF ×2 (08:54→20:43)
[2025-01-14] MEDS: MAGNESIUM OXIDE 400 MG TABLET PO ×3 (08:54→20:42)
[2025-01-14 12:01] LABS: Ionized Calcium* 1.11 mmol/L (1.11-1.30)
--- NOTE | 2025-01-14 13:31 | PM.IMPN1 ---
Assessment and Plan Assessment and plan (1) Hypocalcemia: Problem comment: - suspect this was due to severe hypomagnisemia causing PTH suppression and resistance (PTH level is wnl); since Mg level normalized, Ca has come up more quickly - symptoms continue to improve - continue to hold PPI - continue oral calcium supplementation and recheck in the morning Status: Acute (2) Hypomagnesemia: Problem comment: - probably secondary to GI loss from profuse diarrhea since discharge from [facility]. On my differential was C diff considering that his appetite was low as well, however his appetite has improved and he has not had any bowel movement since admission, so C diff is less likely, monitor for any diarrhea and if it is present, check for C diff. - I see on the labs that this continues to trend downward although it is still within normal limits, continue oral magnesium supplementation and recheck in the morning - continue to hold PPI Status: Acute (3) Diabetes mellitus type 2, controlled: Problem comment: - A1C was 5.6 on 12/26/24, holding Metformin and Glipizide - POC glucoses remain elevated on sliding scale, may make repletion of calcium challenging. Start Lantus. Status: Chronic (4) Weakness: Problem comment: - likely related to above - improving as electrolytes improve - continue therapy - I discussed possible rehab with the patient and his family today. His daughter was thinking this might be a good thing, but his wants to take him home and states that they did not have a good experience at [facility]. Status: Acute (5) Atonic bladder: Problem comment: - self catheterization at home QID, Lora placed in ER 01/12/25 - May be able to return to self catheterization as symptoms are improving, discontinue Lora catheter today and restart catheterization q.i.d. and p.r.n. Status: Acute (6) Coronary artery disease: Problem comment: - recurrent interventions with coronary stents (2006, 2013, 2017 angioplasty, 2019, 2021, 2024). Continue Plavix and aspirin Status: Chronic (7) Essential tremor: Problem comment: - diagnosis 10/2024, Propanolol initiated at that time which was helpful until 01/06/25 when he self-discontinued - exacerbated by electrolyte disturbances Status: Acute (8) Hypertension: Problem comment: - continue home medications (holding losartan) Status: Chronic (9) Anemia: Problem comment: - chronic, normocytic, mild, has been 10.3-11.0 since hip fracture in 10/2024 - 11.9 on 01/12/25 - 01/13 stable at 11.4 Status: Acute (10) Weight loss: Problem comment: - has lost 12kg since hospitalization in 10/2024 for hip fracture, unclear if this is related to current electrolyte disturbance - nutrition consult - nutritional supplements (he is doing well with the clear ensure) Status: Acute (11) Decubitus ulcer of coccygeal region, stage 1: Problem comment: - according to family, this is present since hip fracture 11/14/24 - no open areas - offload, frequent repositioning, mepilex dressing Status: Acute Plan - per above (IV electrolyte replacement, follow labs, IVFs) - daughter updated bedside, questions answered Total Time Spent Total Time Spent: Today I spent 50 minutes seeing the patient, discussing with the patient and his , reviewing Expanse and EPIC notes/diagnostics/labs, discussing the care plan with our care team that includes social work, PT/OT, pharmacy, RT, chcf and documenting my impressions and plan in the medical record. Subjective Date Seen: 01/14/25 Interval history: Rosales's and youngest daughter are here today. They tell me that he had a shaky spell yesterday and his knees gave out, but he was lowered to a chair or commode without falling. All 3 of them tell me that today he is much better has had no further spells like that. Rosales and his tell me that he had profuse watery diarrhea upon returning home from [facility] and although it got a little bit better the next week, he continued to have diarrhea up until he came to the hospital for this admission. Since being here he has not had any diarrhea or bowel movements at all. We discussed electrolytes, diarrhea, proton pump inhibitor, urinary retention, and urinary tract infection. They also asked me to check his sacrum because he's had a sore there since his hip fracture. Exam Narrative: Exam Narrative: General: No acute distress. Awake, alert, oriented. Sitting up straight in the bedside chair, able to sit forward and even stand on his own. No pallor. No jaundice. No tremors noted. Oropharynx: Clear. Mucous membranes moist. Cardiovascular: Regular rate and rhythm. No murmurs, gallops, or rubs. Respiratory: Clear to auscultation bilaterally. No wheezes or crackles. Abdomen: Bowel sounds present. Soft, nondistended, nontender. Genitourinary: Lora catheter is in place draining clear light yellow urine. Sacrum: Stage I pressure ulcer over coccyx that was covered with mepilex. Extremities: Trace bilateral lower extremity edema. Const: Vital Signs, click to edit/add: Vital Signs - 24 hr 01/13/25 14:12 01/13/25 15:24 01/13/25 16:17 Temperature 99.2 F Pulse Rate 86 Pulse Rate [Pulse Oximeter] 81 81 Respiratory Rate 16 16 Blood Pressure [Le ft Arm] 122/69 Blood Pressure [Ri ght Arm] Pulse Oximetry 98 Oxygen Delivery Me thod Room Air 01/13/25 20:13 01/13/25 22:13 01/13/25 23:00 Temperature 97.4 F L 97.8 F Pulse Rate 65 Pulse Rate [Pulse Oximeter] 60 77 Respiratory Rate 20 18 Blood Pressure [Le ft Arm] 162/70 H 136/61 Blood Pressure [Ri ght Arm] Pulse Oximetry 91 98 Oxygen Delivery Me thod Room Air Room Air 01/14/25 03:10 01/14/25 07:00 01/14/25 07:30 Temperature 97.9 F Pulse Rate 67 Pulse Rate [Pulse Oximeter] 72 71 Respiratory Rate 16 24 Blood Pressure [Le ft Arm] 158/83 H Blood Pressure [Ri ght Arm] Pulse Oximetry 100 Oxygen Delivery Me thod Room Air 01/14/25 08:02 01/14/25 11:00 Temperature Pulse Rate Pulse Rate [Pulse Oximeter] 71 80 Respiratory Rate 24 18 Blood Pressure [Le ft Arm] Blood Pressure [Ri ght Arm] 183/81 H 139/97 H Pulse Oximetry 94 99 Oxygen Delivery Me thod Room Air Room Air Labs Labs: Laboratory Results - last 24 hr 01/13/25 01/13/25 01/14/25 13:43 22:06 05:45 Sodium 136 Potassium 3.5 L Chloride 104 Carbon Dioxide 23 Anion Gap 9 BUN 6 L Creatinine 0.8 Estimated Creat Clear 56.48 Estimated GFR 86 Glucose 155 H Calcium 7.1 L Ionized Calcium Parul 0.96 L 0.99 L 1.01 L Magnesium 1.6 2.2 1.9 01/14/25 11:55 Sodium Potassium Chloride Carbon Dioxide Anion Gap BUN Creatinine Estimated Creat Clear Estimated GFR Glucose Calcium Ionized Calcium Parul 1.11 Magnesium 1.8
--- NOTE | 2025-01-14 16:16 | PC.NURSE ---
End of shift-- Pleasant and cooperative patient. Alert and primarily oriented, but forgetful as per his baseline. VSS and pt is afebrile. SPO2 maintained >90% on RA. He denied any pain. LS CTA. Telemetry NSR with 1st degree AV block today. He denied nausea and ate 100% of breakfast and at least half of his lunch. Coccyx reddened and Mepilex was applied. C/D/I. He was up to the chair and ambulated in hallway with assist of 1, belt and walker and tolerated it well. Several family members have been at bedside today and appear loving and supportive. Report to VONNIE Carrillo.
[2025-01-14] MEDS: AMOXICILLIN 250 MG CAPSULE 500 MG PO (20:42)
[2025-01-14] MEDS: ROSUVASTATIN CALCIUM 10 MG TABLET PO (20:43)
--- NOTE | 2025-01-14 23:18 | PC.NURSE ---
Pt alert and oriented. Pt hypertensive, otherwise VSS. Pt straight cathed, tolerated well. Mepilex on bottom. 1a, tolerated well. Pt in bed, appears to be resting, call light within reach.
[2025-01-15] VITALS (12 sets, daily range): BP systolic 120–180; BP diastolic 71–92; PULSE 68–91; RESP 16–18; TEMP 36.4–36.9; O2SAT 94–100
[2025-01-15] MEDS: ACETAMINOPHEN 325 MG TABLET 975 MG PO (01:56)
[2025-01-15] MEDS: SODIUM CHLORIDE 0.9 % (FLUSH) 10 ML SYRINGE 5 ML IVF ×3 (02:18→21:39)
[2025-01-15] MEDS: ONDANSETRON 2 MG/ML inj 4 MG IVP (02:18)
--- NOTE | 2025-01-15 02:29 | PC.NURSE ---
Pt c/o 9/10 abdominal pain/discomfort along with nausea. VS assessed and B/P noted to be elevated and verified with manual cuff- see VS intervention. Agricultural Mechanic also performed EKG PSO to r/o cardiac issue- EKG unchanged when compared to prior EKG. Scant emesis noted. PRN Tylenol administered for c/o abd pain/discomfort. Agricultural Mechanic placed call to Hari at [phone] to update provider regarding elevated B/P along with nausea. MD updated regarding VS, EKG results and c/o abdominal pain/discomfort with nausea. Pt started on first dose of po Amoxicillin last jose which could be causing nausea. MD provided new orders- see EMAR. PRN Zofran given.
--- NOTE | 2025-01-15 03:33 | CRLHL7_ITS ---
For Patients: As a result of the Century Cures Act, medical imaging exams and procedure reports are released immediately into your electronic medical record. You may view this report before your referring provider. If you have questions, please contact your health care provider. Indication: Abdominal pain Technique: Supine views of the abdomen Comparison: CT abdomen pelvis performed 11/28/2024 Findings/Impression: Nonspecific, nonobstructive bowel gas pattern with no acute radiographic abnormality appreciated. Dictated by Chris Perez MD @ 01/15/2025 3:58:15 AM (Electronically Signed)
[2025-01-15] MEDS: PANTOPRAZOLE SODIUM 40 MG INJ IVP (06:04)
--- NOTE | 2025-01-15 06:08 | PC.NURSE ---
Pt is alert and oriented, but forgetful as per his baseline. VSS and pt is afebrile and on RA. He denied any pain. Tele NSR with 1st degree AV block. Mepilex on coccyx C/D/I. Ambulated in with assist of 1, gait belt and fww tolerated it well. In/out straight cath X3 pt tolerated well. Pt complained of stomach ache SOFIYA called abdominal xray done and IV protonix ordered.
[2025-01-15 06:42] LABS: Ionized Calcium* 1.10 mmol/L (1.11-1.30)
[2025-01-15 06:47] LABS: Hematocrit* 36.5 % (37.0-53.0); Hemoglobin* 11.8 gm/dL (13.5-17.5); Immature Granulocytes Abs Auto 0.03 K/uL (0.00-0.30); Immature Granulocytes Pct Auto 0.3 %; Lymphocytes Absolute Auto 1.40 K/uL (0.90-2.90); Mean Corpuscular HGB Conc 32 gm/dL (32-36); Mean Corpuscular Hemoglobin 30 pg (26-34); Mean Corpuscular Volume 92 fL (80-100); RDW Coefficient of Variation % 13.3 % (11.5-15.5); Red Blood Count* 3.95 m/uL (4.30-5.90); White Blood Count* 9.67 K/uL (4.50-11.00)
[2025-01-15 07:02] LABS: Slide Review Reflex No
[2025-01-15 07:09] LABS: Chloride* 102 mmol/L (96-114)
[2025-01-15 07:10] LABS: Potassium* 4.3 mmol/L (3.6-5.1); Sodium* 135 mmol/L (135-149)
[2025-01-15 07:12] LABS: Blood Urea Nitrogen* 7 mg/dL (7-30); Creatinine* 0.8 mg/dL (0.5-1.5); Est. Creatinine Clearance* 56.48; Estimated Glomerular Filt Rate 86 ml/min
[2025-01-15 07:13] LABS: Anion Gap 6 mEq/L (7-15); Calcium* 8.1 mg/dL (8.4-10.6); Carbon Dioxide* 27 mmol/L (20-32); Glucose* 207 mg/dL (60-115)
[2025-01-15] MEDS: ISOSORBIDE MONONITRATE ER 30 MG TAB PO (08:18)
[2025-01-15] MEDS: MAGNESIUM OXIDE 400 MG TABLET PO (08:18)
[2025-01-15] MEDS: ASPIRIN 81 MG TABLET EC PO (08:18)
[2025-01-15] MEDS: CALCIUM CARBONATE 500 MG TABLET PO ×3 (08:18→21:22)
[2025-01-15] MEDS: AMOXICILLIN 250 MG CAPSULE 500 MG PO ×3 (08:18→21:22)
[2025-01-15] MEDS: INSULIN ASPART 100 UNIT/ML SUBCUT ×3 (08:19→21:37)
[2025-01-15] MEDS: CLOPIDOGREL 75 MG TABLET PO (08:19)
[2025-01-15] MEDS: MAGNESIUM OXIDE 400 MG TABLET 800 MG PO ×2 (10:14→21:22)
[2025-01-15] MEDS: CALCIUM GLUC 1,000MG/50 ML 1,000 MG/50 ML BAG 100 MG IVPB (10:15)
[2025-01-15] MEDS: MAGNESIUM SULF 1 G/100 ML 1 GM/100 ML PIGGYBACK IVPB (11:14)
--- NOTE | 2025-01-15 12:32 | PM.DS1 ---
DS: Providers Provider Time Seen by Provider: 09:14 Date Seen: 01/15/25 Date of admission: 01/12/25 22:58 Primary care physician: Kevin Nelson MD Admitting Clinician: Gladis Stevens MD Consults: 01/12/25 23:04 Consult to Physical Therapy [CONS] Routine Comment: Reason(s) for PT Consult:: Evaluate and Treat Any Restrictions?:: No Restrictions 01/12/25 23:08 Consult to Occupational Therapy [CONS] Routine Comment: Reason(s) for OT Consult:: Evaluate and Treat Any Restrictions?:: No Restrictions 01/13/25 11:11 Consult to Nutrition [CONS] Routine Comment: Reason for consult:: Weight Loss Attending Physician on discharge: Joya Sebastian MD Date of Discharge: 01/15/25 DS: Diagnosis Discharge Diagnosis (1) Hypocalcemia: Status: Acute Problem details: - suspect this was due to severe hypomagnisemia causing PTH suppression and resistance (PTH level is wnl); since Mg level normalized, Ca has come up more quickly - symptoms continue to improve - continue to hold PPI - continue oral calcium supplementation and recheck in the morning (2) Hypomagnesemia: Status: Acute Problem details: - probably secondary to GI loss from profuse diarrhea since discharge from [facility]. On my differential was C diff considering that his appetite was low as well, however his appetite has improved and he has not had any bowel movement since admission, so C diff is less likely, monitor for any diarrhea and if it is present, check for C diff. - I see on the labs that this continues to trend downward although it is still within normal limits, continue oral magnesium supplementation and recheck in the morning - continue to hold PPI (3) Diabetes mellitus type 2, controlled: Status: Chronic Problem details: - A1C was 5.6 on 12/26/24, holding Metformin and Glipizide - POC glucoses remain elevated on sliding scale, may make repletion of calcium challenging. Start Lantus. (4) Weakness: Status: Acute Problem details: - likely related to above - improving as electrolytes improve - continue therapy - I discussed possible rehab with the patient and his family today. His daughter was thinking this might be a good thing, but his wants to take him home and states that they did not have a good experience at [facility]. (5) Atonic bladder: Status: Acute Problem details: - self catheterization at home QID, Lora placed in ER 01/12/25 - May be able to return to self catheterization as symptoms are improving, discontinue Lora catheter today and restart catheterization q.i.d. and p.r.n. (6) Coronary artery disease: Status: Chronic Problem details: - recurrent interventions with coronary stents (2006, 2013, 2017 angioplasty, 2019, 2021, 2024). Continue Plavix and aspirin (7) Essential tremor: Status: Acute Problem details: - diagnosis 10/2024, Propanolol initiated at that time which was helpful until 01/06/25 when he self-discontinued - exacerbated by electrolyte disturbances (8) Hypertension: Status: Chronic Problem details: - continue home medications (holding losartan) DS: Summary Time Spent with Patient Time attestation: Total time spent providing and/or coordinating discharge services: Exam Const: Vital Signs, click to edit/add: Vital Signs - 24 hr 01/14/25 14:15 01/14/25 15:00 01/14/25 15:00 Temperature 97.6 F 98.2 F Pulse Rate Pulse Rate [Pulse Oximeter] 75 75 Respiratory Rate 20 20 Blood Pressure [Le ft Arm] Blood Pressure [Ri ght Arm] 152/72 H Pulse Oximetry 98 Oxygen Delivery Me thod Room Air 01/14/25 15:00 01/14/25 20:48 01/14/25 23:00 Temperature 97.8 F 98 F Pulse Rate 73 Pulse Rate [Pulse Oximeter] 71 78 Respiratory Rate 18 18 Blood Pressure [Le ft Arm] 176/89 H Blood Pressure [Ri ght Arm] 161/90 H Pulse Oximetry 99 100 Oxygen Delivery Me thod Room Air Room Air 01/14/25 23:00 01/14/25 23:12 01/15/25 01:50 Temperature 98.0 F Pulse Rate 72 Pulse Rate [Pulse Oximeter] 78 73 Respiratory Rate 18 16 Blood Pressure [Le ft Arm] 180/90 H Blood Pressure [Ri ght Arm] Pulse Oximetry 98 Oxygen Delivery Me thod Room Air 01/15/25 02:45 01/15/25 03:36 01/15/25 07:18 Temperature 98.2 F 97.6 F Pulse Rate 77 Pulse Rate [Pulse Oximeter] 84 68 Respiratory Rate 18 18 Blood Pressure [Le ft Arm] Blood Pressure [Ri ght Arm] 168/90 H 168/92 H Pulse Oximetry 98 100 Oxygen Delivery Me thod Room Air Room Air 01/15/25 08:16 Temperature 97.5 F L Pulse Rate Pulse Rate [Pulse Oximeter] 81 Respiratory Rate 16 Blood Pressure [Le ft Arm] Blood Pressure [Ri ght Arm] 144/90 H Pulse Oximetry 95 Oxygen Delivery Me thod Room Air DS: Data Data Completed and Pending Completed studies during hospitalization: Procedures Replacement of Right Hip Joint, Femoral Surface with Metal Synthetic Substitute, Uncemented, Open Approach (11/13/24) Labs on day of discharge: Labs from last 24 hours 01/15/25 01/14/25 05:58 11:55 WBC 9.67 RBC 3.95 L Hgb 11.8 L Hct 36.5 L MCV 92 MCH 30 MCHC 32 RDW Coeff of Elan 13.3 Plt Count 152 Neut % (Auto) 75.0 H Lymph % (Auto) 14.5 L [place] % (Auto) 7.9 Eos % (Auto) 2.0 Baso % (Auto) 0.3 Neut # (Auto) 7.30 H Lymph # (Auto) 1.40 [place] # (Auto) 0.80 Eos # (Auto) 0.19 Baso # (Auto) 0.03 Abs Immat Gran (auto) 0.03 Imm/Tot Granulo (auto) 0.3 Sodium 135 Potassium 4.3 Chloride 102 Carbon Dioxide 27 Anion Gap 6 L BUN 7 Creatinine 0.8 Estimated Creat Clear 56.48 Estimated GFR 86 Glucose 207 H Calcium 8.1 L Ionized Calcium Parul 1.10 L Magnesium 1.6 1.8 Discharge Plan Discharge Disposition: Home, Self-Care Date of Admission: 01/12/25 22:58 Attending Provider on Discharge: Joya Sebastian Primary Care Provider: Kevin Nelson Condition: Improved Anticipated Discharge Date/Time: 01/15/25 13:17 Discharge Medications: No Action metformin 1,000 mg tablet 1,000 mg PO BID ranolazine 500 mg tablet extended release 12 hr 500 mg PO Q12H aspirin 81 mg tablet 81 mg PO DAILY Qty: 30 2RF Rx Instructions: restart ASPIRIN and Plavix on 11/20/24 omeprazole 20 mg Capsule,Delayed Release(Dr/Ec) 20 mg PO HS albuterol sulfate 90 mcg/actuation HFA aerosol inhaler 1 - 2 puff INHALATION Q4H PRN (Reason: dyspnea) cyanocobalamin (vitamin B-12) [Vitamin B-12] 100 mcg tablet 50 mcg PO DAILY clopidogrel 75 mg tablet 75 mg PO DAILY glipizide 5 mg tablet 5 mg PO BIDWM isosorbide mononitrate 30 mg tablet extended release 24 hr 30 mg PO DAILY losartan 50 mg tablet 50 mg PO DAILY nitroglycerin 0.4 mg tablet, sublingual 0.4 mg sublingual Q5M PRN rosuvastatin 20 mg tablet 10 mg PO HS Patient Comments: TAKE 1/2 TABLET BY MOUTH EVERY EVENING Additional Instructions: - Resume home care. - Speech therapy for swallowing difficulty - Nutrition fo weight loss Activity Level: Use Walker Discharge Diet: Regular Diet Detail: Ensure clear twice a day Follow Up Appointments: Kevin Nelson MD [Primary Care Provider, Family Practice] Referral Note: Early THIS week (Mon-Wed), Potassium, magnesium, ionized calcium Forms: [facility]
--- NOTE | 2025-01-15 13:34 | CRLHL7_ITS ---
For Patients: As a result of the Century Cures Act, medical imaging exams and procedure reports are released immediately into your electronic medical record. You may view this report before your referring provider. If you have questions, please contact your health care provider. Indication: Fall. Technique: Noncontrast CT of the facial bones with multiplanar reconstruction utilizing bone and soft tissue algorithms. Comparison: None available. Findings: Probable minimally displaced fracture of the left nasal bone (series 4, image 116). Symmetric globes without evidence of penetrating injury. Bilateral pseudophakia. Moderate left temporomandibular joint arthrosis. Mild mucosal thickening within sinuses. Impression: Probable minimally displaced fracture of the left nasal bone (series 4, image 116). Recommend clinical correlation for point tenderness. Please note that all CT scans at this facility use dose modulation, iterative reconstruction, and/or weight-based dosing when appropriate to reduce radiation dose to as low as reasonably achievable. Dictated by Jake Lyons MD @ 01/15/2025 2:40:38 PM (Electronically Signed)
--- NOTE | 2025-01-15 13:49 | CRLHL7_ITS ---
For Patients: As a result of the Cures Act, medical imaging exams and procedure reports are released immediately into your electronic medical record. You may view this report before your referring provider. If you have questions, please contact your health care provider. INDICATION: Fall. TECHNIQUE: Noncontrast CT of the head with multiplanar reconstruction utilizing bone and soft tissue algorithms. COMPARISON: CT head dated 11/28/2024. FINDINGS: No acute intracranial hemorrhage. Similar scattered hypoattenuation within the supratentorial white matter typical of chronic small vessel ischemic changes. Streak artifact projecting over the posterior fossa. The ventricles are unchanged in size. There is similar mild diffuse parenchymal volume loss. No abnormal extra-axial fluid collection is identified. Intact calvarium. Bilateral pseudophakia. The imaged paranasal sinuses and mastoid air cells are clear. IMPRESSION: 1. No acute intracranial hemorrhage or mass effect. 2. Similar mild diffuse parenchymal volume loss and chronic small vessel ischemic changes. Please note that all CT scans at this facility use dose modulation, iterative reconstruction, and/or weight-based dosing when appropriate to reduce radiation dose to as low as reasonably achievable. Dictated by Jake Lyons MD @ 01/15/2025 2:48:20 PM (Electronically Signed)
--- NOTE | 2025-01-15 13:49 | CRLHL7_ITS ---
For Patients: As a result of the Century Cures Act, medical imaging exams and procedure reports are released immediately into your electronic medical record. You may view this report before your referring provider. If you have questions, please contact your health care provider. Indication: Fall. Technique: Noncontrast CT of the cervical spine with multiplanar reconstruction utilizing bone and soft tissue algorithms. Comparison: None available. Findings: No acute fracture or traumatic subluxation. No lytic or blastic lesion. Grade 1 3 mm anterolisthesis of C4 on C5. Atherosclerotic calcification of the carotid bifurcations. No high-grade spinal canal stenosis. Multilevel neural foraminal narrowing, severe on the left at C3-C4, severe on the left at C4-C5, moderate-severe bilaterally at C5-C6, and moderate-severe on the right at C6-C7. Impression: 1. No acute fracture or traumatic subluxation. 2. Advanced cervical spondylosis with multilevel neural foraminal narrowing. Please note that all CT scans at this facility use dose modulation, iterative reconstruction, and/or weight-based dosing when appropriate to reduce radiation dose to as low as reasonably achievable. Dictated by Jake Lyons MD @ 01/15/2025 2:44:53 PM (Electronically Signed)
--- NOTE | 2025-01-15 13:51 | CRLHL7_ITS ---
For Patients: As a result of the Century Cures Act, medical imaging exams and procedure reports are released immediately into your electronic medical record. You may view this report before your referring provider. If you have questions, please contact your health care provider. INDICATION: Hip injury from Fall, recent ORIF TECHNIQUE: Pelvis radiograph, Hip radiograph 3 views right COMPARISON: 12/29/2024 FINDINGS: Bone: No acute fractures or aggressive bone lesions are identified. Moderate diffuse osteopenia is present. Joint: Right hip arthroplasty is noted without interval change. The visualized sacroiliac joints are unremarkable in appearance. The pubic symphysis is normal in appearance. Soft tissue: Unremarkable. No radiopaque foreign bodies are seen. Moderate vascular calcifications are present. IMPRESSION: 1. No acute osseous injuries are noted. Dictated by Sanjiv Ramirez MD @ 01/15/2025 2:21:01 PM Prelim Report By Dr. Sanjiv Ramirez @ 01/15/2025 2:21:05 PM ADDENDUM Dictated by: MD @ 01/15/2025 14:22:41 (Electronically Signed)
[2025-01-15 15:15] LABS: Ionized Calcium* 1.14 mmol/L (1.11-1.30)
[2025-01-15 15:18] LABS: Hematocrit* 38.3 % (37.0-53.0); Hemoglobin* 12.4 gm/dL (13.5-17.5); Immature Granulocytes Pct Auto 1.0 %; Mean Corpuscular HGB Conc 32 gm/dL (32-36); Mean Corpuscular Hemoglobin 30 pg (26-34); Mean Corpuscular Volume 92 fL (80-100); RDW Coefficient of Variation % 13.4 % (11.5-15.5); Red Blood Count* 4.16 m/uL (4.30-5.90); White Blood Count* 11.17 K/uL (4.50-11.00)
[2025-01-15 15:23] LABS: Immature Granulocytes Abs Auto 0.10 K/uL (0.00-0.30); Lymphocytes Absolute Auto 1.00 K/uL (0.90-2.90); Slide Review Reflex No
--- NOTE | 2025-01-15 15:32 | P.IMPN_ITS ---
Assessment and Plan Assessment and plan (1) Hypocalcemia: Problem comment: - suspect this was due to severe hypomagnesemia causing PTH suppression and resistance (PTH level is wnl); since Mg level normalized, Ca has come up more quickly - symptoms continue to improve - hold PPI indefinitely - continue oral calcium supplementation, add a dose of IV calcium today as well Status: Acute (2) Hypomagnesemia: Problem comment: - probably secondary to GI loss from profuse diarrhea since discharge from [facility]. On my differential was C diff considering that his appetite was low as well, however his appetite has improved and he has not had any bowel movement since admission, so C diff is less likely, monitor for any diarrhea and if it is present, check for C diff. - continue to hold PPI - Downward trend despite increasing oral magnesium supplementation. Give another dose of IV magnesium today although it is still within normal limits, continue oral magnesium supplementation - Suspect possible RTA or other compounding cause of hypomagnesemia. Would likely benefit from outpatient nephrology consult. Status: Acute (3) Diabetes mellitus type 2, controlled: Problem comment: - A1C was 5.6 on 12/26/24, holding Metformin and Glipizide - POC glucoses remain elevated on sliding scale, may make repletion of calcium challenging. Started low dose Lantus 01/14. Status: Chronic (4) Weakness: Problem comment: - likely related to above - improving as electrolytes improve - continue therapy - 01/14 I discussed possible rehab with the patient and his family today. His daughter was thinking this might be a good thing, but his wants to take him home and states that they did not have a good experience at [facility]. - 01/15 Patient doing much better. hoping to take him home today; she wants him to shower first. Status: Acute (5) Atonic bladder: Problem comment: - self catheterization at home QID, Lora placed in ER 01/12/25 - Lora catheter discontinued, restarted catheterization q.i.d. and p.r.n. on 01/14 Status: Acute (6) Coronary artery disease: Problem comment: - recurrent interventions with coronary stents (2006, 2013, 2017 angioplasty, 2019, 2021, 2024). Continue Plavix and aspirin Status: Chronic (7) Essential tremor: Problem comment: - diagnosis 10/2024, Propanolol initiated at that time which was helpful until 01/06/25 when he self-discontinued - exacerbated by electrolyte disturbances Status: Acute (8) Hypertension: Problem comment: - continue home medications (holding losartan) Status: Chronic (9) Anemia: Problem comment: - chronic, normocytic, mild, has been 10.3-11.0 since hip fracture in 10/2024 - 11.9 on 01/12/25 - 01/13 stable at 11.4 - 01/15 stable at 11.8 Status: Acute (10) Weight loss: Problem comment: - has lost 12kg since hospitalization in 10/2024 for hip fracture, unclear if this is related to current electrolyte disturbance - nutrition consult - nutritional supplements (he is doing well with the clear ensure) Status: Acute (11) Decubitus ulcer of coccygeal region, stage 1: Problem comment: - according to family, this is present since hip fracture 11/14/24 - no open areas - offload, frequent repositioning, mepilex dressing Status: Acute (12) Cognitive changes: Problem comment: - Since April, per family - May benefit from outpatient cognitive testing - Also pocketing food. Obtain speech eval Status: Acute Total Time Spent Total Time Spent: Today I spent 50 minutes seeing the patient, discussing with the patient and his , reviewing [facility] and EPIC notes/diagnostics/labs, discussing the care plan with our care team that includes social work, PT/OT, pharmacy, RT, senior living and documenting my impressions and plan in the medical record. Subjective Time Seen by Provider: 09:14 Date Seen: 01/15/25 Interval history: Rosales was doing well this morning. He was feeling much better and his family also noted how much better he was doing overall. They were in agreement to take him home today and wanted him to shower before discharge. Exam Narrative: Exam Narrative: General: No acute distress. Awake, alert, oriented. No pallor. No jaundice. No tremors noted. Oropharynx: Clear. Mucous membranes moist. Cardiovascular: Regular rate and rhythm. No murmurs, gallops, or rubs. Respiratory: Clear to auscultation bilaterally. No wheezes or crackles. Abdomen: Bowel sounds present. Soft, nondistended, nontender. Extremities: Trace bilateral lower extremity edema. Const: Vital Signs, click to edit/add: Vital Signs - 24 hr 01/14/25 20:48 01/14/25 23:00 01/14/25 23:00 Temperature 97.8 F 98 F Pulse Rate Pulse Rate [Pulse Oximeter] 71 78 78 Respiratory Rate 18 18 18 Blood Pressure [Le ft Arm] 176/89 H Blood Pressure [Ri ght Arm] 161/90 H Pulse Oximetry 99 100 Oxygen Delivery Me thod Room Air Room Air 01/14/25 23:12 01/15/25 01:50 01/15/25 02:45 Temperature 98.0 F 98.2 F Pulse Rate 72 Pulse Rate [Pulse Oximeter] 73 84 Respiratory Rate 16 18 Blood Pressure [Le ft Arm] 180/90 H Blood Pressure [Ri ght Arm] 168/90 H Pulse Oximetry 98 98 Oxygen Delivery Me thod Room Air Room Air 01/15/25 03:36 01/15/25 07:18 01/15/25 08:16 Temperature 97.6 F 97.5 F L Pulse Rate 77 Pulse Rate [Pulse Oximeter] 68 81 Respiratory Rate 18 16 Blood Pressure [Le ft Arm] Blood Pressure [Ri ght Arm] 168/92 H 144/90 H Pulse Oximetry 100 95 Oxygen Delivery Ok thod Room Air Room Air 01/15/25 13:50 Temperature 97.7 F Pulse Rate Pulse Rate [Pulse Oximeter] 89 Respiratory Rate 16 Blood Pressure [Le ft Arm] Blood Pressure [Ri ght Arm] 120/71 Pulse Oximetry 94 Oxygen Delivery Me thod Room Air Labs Labs: Laboratory Results - last 24 hr 01/15/25 01/15/25 05:58 15:09 WBC 9.67 11.17 H RBC 3.95 L 4.16 L Hgb 11.8 L 12.4 L Hct 36.5 L 38.3 MCV 92 92 MCH 30 30 MCHC 32 32 RDW Coeff of Elan 13.3 13.4 Plt Count 152 143 Neut % (Auto) 75.0 H 79.7 H Lymph % (Auto) 14.5 L 9.4 L [place] % (Auto) 7.9 8.9 Eos % (Auto) 2.0 0.8 Baso % (Auto) 0.3 0.2 Neut # (Auto) 7.30 H 8.90 H Lymph # (Auto) 1.40 1.00 [place] # (Auto) 0.80 1.00 H Eos # (Auto) 0.19 0.10 Baso # (Auto) 0.03 0.00 Abs Immat Gran (auto) 0.03 0.10 Imm/Tot Granulo (auto) 0.3 1.0 Sodium 135 Potassium 4.3 Chloride 102 Carbon Dioxide 27 Anion Gap 6 L BUN 7 Creatinine 0.8 Estimated Creat Clear 56.48 Estimated GFR 86 Glucose 207 H Calcium 8.1 L Ionized Calcium Parul 1.10 L 1.14 Magnesium 1.6
[2025-01-15 15:35] LABS: Chloride* 101 mmol/L (96-114); Potassium* 4.8 mmol/L (3.6-5.1); Sodium* 132 mmol/L (135-149)
[2025-01-15 15:38] LABS: Anion Gap 8 mEq/L (7-15); Blood Urea Nitrogen* 7 mg/dL (7-30); Calcium* 8.9 mg/dL (8.4-10.6); Carbon Dioxide* 23 mmol/L (20-32); Creatinine* 0.8 mg/dL (0.5-1.5); Est. Creatinine Clearance* 56.48; Estimated Glomerular Filt Rate 86 ml/min; Glucose* 225 mg/dL (60-115)
--- NOTE | 2025-01-15 16:21 | W.PM.CROSSCO ---
Subjective Subjective Time Seen by Provider: 13:45 Date Seen: 01/15/25 Interval history: The OT told me that she got him up to use the shower, and as they got closer to the bathroom, he seemed slower. While in the bathroom, he stopped following commands. He fell to the floor of the shower from the chair. I was notified by staff immediately and went in to help assess and get him off the floor. He was pale, but responding appropriately. He said he hit his head. He denied pain anywhere else. He denied CP or SOB. Objective Objective Data Details: 01/15/25 13:50 Temperature 97.7 F Pulse Rate Pulse Rate [Pulse Oximeter] 89 Respiratory Rate 16 Blood Pressure [Le ft Arm] Blood Pressure [Ri ght Arm] 120/71 Pulse Oximetry 94 Oxygen Delivery Me thod Room Air General: Sleepy, awake, oriented x3. Pallor noted. HEENT: Ecchymosis and mild swelling over left forehead. Small abrasion and swelling over bridge of nose. Oropharynx clear. Mucous membranes moist. Pupils equally round and reactive to light and accommodation. Neck is nontender to palpation and patient has no pain with flexion, extension, or lateral flexion. Cardiovascular: Regular rate and rhythm. No murmurs, gallops, or rubs. Respiratory: Clear to auscultation bilaterally. No wheezes or crackles. Abdomen: Bowel sounds present. Soft, nondistended, nontender. Extremities: No pain on palpation to extremities or ribs. Skin: As above, additionally patient has 3 skin tears to on his right hand and 1 on his left. Neuro: There are no focal deficits. Cranial nerves 2-12 are intact. No nystagmus. No facial asymmetry. Tongue is midline. Strength is 5/5 in all 4 extremities. Light touch sensation is intact in face body and extremities. Coordination is intact in upper and lower extremities. 01/15/2025 EKG: Sinus rhythm with fusion complexes, 80 beats per minute, right bundle-branch block, T-wave abnormality, consider lateral ischemia, abnormal EKG, unchanged from 11/28/2024. Ordering Physician: Joya Sebastian M.D. Date of Service: 01/15/25 Procedure(s): CT head/brain wo con Accession Number(s): [id number] cc: Joya Sebastian M.D.; Kevin Nelson M.D.~ For Patients: As a result of the Cures Act, medical imaging exams and procedure reports are released immediately into your electronic medical record. You may view this report before your referring provider. If you have questions, please contact your health care provider. Indication: Fall. Technique: Noncontrast CT of the facial bones with multiplanar reconstruction utilizing bone and soft tissue algorithms. Comparison: None available. Findings: Probable minimally displaced fracture of the left nasal bone (series 4, image 116). Symmetric globes without evidence of penetrating injury. Bilateral pseudophakia. Moderate left temporomandibular joint arthrosis. Mild mucosal thickening within sinuses. Impression: Probable minimally displaced fracture of the left nasal bone (series 4, image 116). Recommend clinical correlation for point tenderness. Please note that all CT scans at this facility use dose modulation, iterative reconstruction, and/or weight-based dosing when appropriate to reduce radiation dose to as low as reasonably achievable. Dictated by Jake Lyons MD @ 01/15/2025 2:40:38 PM (Electronically Signed) Ordering Physician: Joya Sebastian M.D. Date of Service: 01/15/25 Procedure(s): CT cervical spine wo con Accession Number(s): [id number] cc: Joya Sebastian M.D.; Kevin Nelson M.D.~ For Patients: As a result of the Cures Act, medical imaging exams and procedure reports are released immediately into your electronic medical record. You may view this report before your referring provider. If you have questions, please contact your health care provider. Indication: Fall. Technique: Noncontrast CT of the cervical spine with multiplanar reconstruction utilizing bone and soft tissue algorithms. Comparison: None available. Findings: No acute fracture or traumatic subluxation. No lytic or blastic lesion. Grade 1 3 mm anterolisthesis of C4 on C5. Atherosclerotic calcification of the carotid bifurcations. No high-grade spinal canal stenosis. Multilevel neural foraminal narrowing, severe on the left at C3-C4, severe on the left at C4-C5, moderate-severe bilaterally at C5-C6, and moderate-severe on the right at C6-C7. Impression: 1. No acute fracture or traumatic subluxation. 2. Advanced cervical spondylosis with multilevel neural foraminal narrowing. Please note that all CT scans at this facility use dose modulation, iterative reconstruction, and/or weight-based dosing when appropriate to reduce radiation dose to as low as reasonably achievable. Dictated by Jake Lyons MD @ 01/15/2025 2:44:53 PM (Electronically Signed) Ordering Physician: Joya Sebastian M.D. Date of Service: 01/15/25 Procedure(s): CT facial bones wo con Accession Number(s): [id number] cc: Joya Sebastian M.D.; Kevin Nelson M.D.~ For Patients: As a result of the Cures Act, medical imaging exams and procedure reports are released immediately into your electronic medical record. You may view this report before your referring provider. If you have questions, please contact your health care provider. INDICATION: Fall. TECHNIQUE: Noncontrast CT of the head with multiplanar reconstruction utilizing bone and soft tissue algorithms. COMPARISON: CT head dated 11/28/2024. FINDINGS: No acute intracranial hemorrhage. Similar scattered hypoattenuation within the supratentorial white matter typical of chronic small vessel ischemic changes. Streak artifact projecting over the posterior fossa. The ventricles are unchanged in size. There is similar mild diffuse parenchymal volume loss. No abnormal extra-axial fluid collection is identified. Intact calvarium. Bilateral pseudophakia. The imaged paranasal sinuses and mastoid air cells are clear. IMPRESSION: 1. No acute intracranial hemorrhage or mass effect. 2. Similar mild diffuse parenchymal volume loss and chronic small vessel ischemic changes. Please note that all CT scans at this facility use dose modulation, iterative reconstruction, and/or weight-based dosing when appropriate to reduce radiation dose to as low as reasonably achievable. Dictated by Jake Lyons MD @ 01/15/2025 2:48:20 PM (Electronically Signed) Ordering Physician: Joya Sebastian M.D. Date of Service: 01/15/25 Procedure(s): XR hip RT min 2V Accession Number(s): [id number] cc: Joya Sebastian M.D.; Kevin Nelson M.D.~ For Patients: As a result of the Cures Act, medical imaging exams and procedure reports are released immediately into your electronic medical record. You may view this report before your referring provider. If you have questions, please contact your health care provider. INDICATION: Hip injury from Fall, recent ORIF TECHNIQUE: Pelvis radiograph, Hip radiograph 3 views right COMPARISON: 12/29/2024 FINDINGS: Bone: No acute fractures or aggressive bone lesions are identified. Moderate diffuse osteopenia is present. Joint: Right hip arthroplasty is noted without interval change. The visualized sacroiliac joints are unremarkable in appearance. The pubic symphysis is normal in appearance. Soft tissue: Unremarkable. No radiopaque foreign bodies are seen. Moderate vascular calcifications are present. IMPRESSION: 1. No acute osseous injuries are noted. Dictated by Sanjiv Ramirez MD @ 01/15/2025 2:21:01 PM Prelim Report By Dr. Sanjiv Ramirez @ 01/15/2025 2:21:05 PM ADDENDUM Dictated by: MD @ 01/15/2025 14:22:41 (Electronically Signed) Assessment and Plan Assessment and plan (1) Fall: Problem comment: - Suspect due to either vasovagal or CO, no evidence for stroke, POC glucose elevated, so this was not due to hypoglycemia Status: Acute (2) Elevated troponin I level: Problem comment: - has h/o CAD, CO. Suspect NSTEMI, give Aspirin 325mg now, repeat trop and EKG in 2 hours. If not stable or trending down, consult cardiology, ECHO tomorrow. - discussed this and results of studies above with family. Status: Acute (3) Altered mental status: Problem comment: - Suspect due to possible CO Status: Acute (4) Nasal bone fracture: Problem comment: due to fall Status: Suspected (5) Enterococcus faecalis infection: Problem comment: - UTI, treating with oral amoxicillin Status: Acute
[2025-01-15] MEDS: ASPIRIN 81 MG TAB.CHEW 325 MG PO (16:34)
--- NOTE | 2025-01-15 18:41 | PC.NURSE ---
Pt. sustained a fall during OT session this afternoon (see OT documentation). Nursing and MD reported to pt's room immediately. Pt. transferred from floor to wheelchair, and then wheelchair to bed to be evaluated and treated. BP 120/71, HR 89, Blood Glucose 216, EKG completed. Imaging completed. Wounds cleansed and dressed per nursing (see wound assessment). See Dr. Sebastian's note for additional information.
--- NOTE | 2025-01-15 19:10 | PM.EN ---
Chart Event Note Date Seen: 01/15/25 Chart Event Note: I discussed the recent developments with Dr. Sebastian. Given the sudden rise in Trop I from less than 0.01 to 0.67, in the context of severe epigastric pain earlier this morning and subsequent resolution of this complaint, and the gradual decline in Trop I since, with essentially unchanged ECGs, the patient most likely sustained acute myocardial injury, such as NSTEMI. Agree with TTE assessment tomorrow. Add Tele, ECG in AM, repeat Trop I in AM, check LFTs. Consider assessing non-cardiac causes, including PE, mesenteric ischemia, etc.
[2025-01-15 19:26] LABS: Albumin* 3.1 g/dL (3.3-5.0)
[2025-01-15 19:27] LABS: Albumin* 2.8 g/dL (3.3-5.0)
[2025-01-15 19:29] LABS: Alanine Aminotransferase* 17 U/L (4-50); Alkaline Phosphatase* 71 U/L (40-150); Aspartate Amino Transferase* 30 U/L (12-35); Bilirubin Direct* 0.2 mg/dL (0.0-0.5); Bilirubin Total* 0.3 mg/dL (0.1-1.5); Total Protein* 5.5 g/dL (6.0-8.3)
[2025-01-15 19:30] LABS: Alanine Aminotransferase* 15 U/L (4-50); Alkaline Phosphatase* 59 U/L (40-150); Aspartate Amino Transferase* 28 U/L (12-35); Bilirubin Direct* 0.2 mg/dL (0.0-0.5); Bilirubin Total* 0.3 mg/dL (0.1-1.5); Total Protein* 5.0 g/dL (6.0-8.3)
[2025-01-15] MEDS: ROSUVASTATIN CALCIUM 10 MG TABLET PO (21:22)
[2025-01-16] VITALS (8 sets, daily range): BP systolic 133–144; BP diastolic 80–91; PULSE 82–94; RESP 16–20; TEMP 36.4–36.7; O2SAT 93–100
[2025-01-16] MEDS: GI COCKTAIL (VISC LIDO/ANTACID) 30 ML PO (03:48)
[2025-01-16] MEDS: ONDANSETRON 2 MG/ML inj 4 MG IVP (03:58)
--- NOTE | 2025-01-16 04:57 | PC.NURSE ---
shift note: pt is aox3. pt is forgetful, but oriented to the situation & able to make needs known. afebrile. RN re-approached pt about supper & provided education on intake. pt straight catheterized by RN & fashion director party plan sales. EKG done & results sent to Hari LEDEZMA. updated orders- See EMAR. Pt did not tolerate medication well, resulted in N/V. aromatherapy patch provided ; pt tolerating. HOB in [employer] position.
[2025-01-16 06:03] LABS: HCO3 VBG 25 mmol/L (21-28); PCO2 VBG 37 mmHG (40-50); PO2 VBG 55.2 mmHG (25-47); pH VBG 7.446 (7.32-7.43)
[2025-01-16 06:05] LABS: Hematocrit* 37.0 % (37.0-53.0); Hemoglobin* 12.1 gm/dL (13.5-17.5); Mean Corpuscular HGB Conc 33 gm/dL (32-36); Mean Corpuscular Hemoglobin 30 pg (26-34); Mean Corpuscular Volume 91 fL (80-100); Red Blood Count* 4.06 m/uL (4.30-5.90); White Blood Count* 9.13 K/uL (4.50-11.00)
[2025-01-16 06:07] LABS: Slide Review Reflex No
[2025-01-16 06:26] LABS: Albumin* 3.2 g/dL (3.3-5.0); Chloride* 101 mmol/L (96-114)
[2025-01-16 06:27] LABS: Potassium* 4.6 mmol/L (3.6-5.1); Sodium* 133 mmol/L (135-149)
[2025-01-16 06:29] LABS: Blood Urea Nitrogen* 7 mg/dL (7-30); Creatinine* 0.7 mg/dL (0.5-1.5); Est. Creatinine Clearance* 56.48; Estimated Glomerular Filt Rate 90 ml/min
[2025-01-16 06:30] LABS: Alanine Aminotransferase* 15 U/L (4-50); Alkaline Phosphatase* 72 U/L (40-150); Anion Gap 7 mEq/L (7-15); Aspartate Amino Transferase* 22 U/L (12-35); Bilirubin Direct* 0.2 mg/dL (0.0-0.5); Bilirubin Total* 0.5 mg/dL (0.1-1.5); Calcium* 8.9 mg/dL (8.4-10.6); Carbon Dioxide* 25 mmol/L (20-32); Cholesterol* 108 mg/dL (90-199); Glucose* 213 mg/dL (60-115); Total Protein* 5.6 g/dL (6.0-8.3); Triglycerides* 108 mg/dL (40-149)
[2025-01-16 06:31] LABS: HDL Cholesterol* 43 mg/dL (>=40)
[2025-01-16 06:55] LABS: NT Pro B Type NatriureticPept* 18100 pg/mL (See Note)
--- NOTE | 2025-01-16 08:30 | CRLHL7_ITS ---
For Patients: As a result of the Century Cures Act, medical imaging exams and procedure reports are released immediately into your electronic medical record. You may view this report before your referring provider. If you have questions, please contact your health care provider. INDICATION: Heartburn, abdominal pain, pallor. COMPARISON: 11/28/2024 TECHNIQUE: CT of the abdomen and pelvis with intravenous contrast. Multiplanar axial, coronal, and sagittal reformats were reconstructed. Contrast: 95 mL Isovue 370. FINDINGS: Lung bases: There are small bilateral pleural effusions and bibasilar atelectasis. Liver: Small focal fat at the superior falciform ligament. Gallbladder and bile ducts: Cholecystitis. The gallbladder is distended. The gallbladder wall is thickened and hyperenhancing. There is circumferential pericholecystic edema. There are several gallstones at the gallbladder neck and in the proximal cystic duct. The intrahepatic bile ducts are not dilated. The extrahepatic bile duct is not dilated. No calcified choledocholithiasis. Pancreas: Normal. Spleen: Normal. Adrenal glands: Normal. Kidneys: Normal parenchyma. There is a 1.4 centimeter left renal cyst. No calculi. Bilateral extrarenal pelviectasis appears physiologic. No worrisome urinary tract fixation Urinary bladder: Bladder wall thickening and hyperemia. Pelvis: Streak artifact from the hip arthroplasty. Prostate size is unremarkable for age. Vessels: Heavy atherosclerosis. No aortic aneurysm. 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 Possible stenosis of both renal arteries as well. Bowel: Hyperdense ingested material in the stomach. There is some wall thickening and edema of the gastric antrum and proximal duodenum. No other dilated or inflamed small bowel or colon. Normal appendix. Few scattered diverticuli. No diverticulitis. Moderate stool burden. Lymph nodes: No adenopathy. Peritoneum: No ascites. Abdominal wall: No hernia. 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 Disc and facet degeneration. Thoracic DISH. No acute fractures. No focal worrisome bone lesions. IMPRESSION: 1. Calculus cholecystitis. No biliary ductal dilatation. No choledocholithiasis seen or suspected. 2. Mild gastritis and proximal duodenitis. No perforation. No findings of a fistula between the duodenal and biliary tree. 3. Urinary bladder cystitis. Please note that all CT scans at this facility use dose modulation, iterative reconstruction, and/or weight-based dosing when appropriate to reduce radiation dose to as low as reasonably achievable. Dictated by Darlene Gonzalez MD @ 01/16/2025 10:35:43 AM (Electronically Signed)
--- NOTE | 2025-01-16 08:30 | CRLHL7_ITS ---
For Patients: As a result of the 21st Century Cures Act, medical imaging exams and procedure reports are released immediately into your electronic medical record. You may view this report before your referring provider. If you have questions, please contact your health care provider. INDICATION: Heartburn, abdominal pain, pallor. COMPARISON: Same day CT abdomen pelvis, chest radiograph 11/28/2024 TECHNIQUE: CT angiogram chest with contrast, pulmonary embolism protocol. Multiplanar axial, coronal, and sagittal reformats are included. MIP images to improve detection of pulmonary emboli are included. Intravenous contrast: 95 mL Isovue 370. FINDINGS: PE: Well-timed contrast bolus. No pulmonary emboli. Normal caliber main pulmonary artery. Normal sized right heart chambers. No reflux of contrast below the diaphragm. Airway: Expiratory appearance of the airway. Lungs: Expiratory appearance of the lungs. Bibasilar atelectasis. There is a 5 millimeter nodule in the right middle lobe on series 5, image 106. There is a 5 millimeter nodule in the right middle lobe on series 5, image 136 this nodule has been stable since at least 2020. There is a 3 millimeter nodule in the right upper lobe on series 5, image 77. There is a 3 millimeter nodule in the left upper lobe on series 5, image 98. Partially seen in 202. No consolidation. No edema or emphysema. Pleura: There are small bilateral pleural effusions layering posteriorly and inferiorly without loculation. These are new compared to the prior CT from 11/28/2024. no pneumothorax. Lymph nodes: No thoracic adenopathy. Mediastinum: No pneumomediastinum. No mass. Heart and great vessels: No pericardial effusion. Normal cardiac chamber size. Heavy calcified atherosclerotic plaques. No aortic aneurysm. Chest wall: Normal. No masses. Upper abdomen: Calculus cholecystitis. Bones: No fractures. No focal bone lesions. Thoracic dish. Disc and facet degeneration. IMPRESSION: 1. No pulmonary embolism. 2. Small bilateral pleural effusions of unclear etiology. 3. Expiratory appearance of the lungs. Low volumes and bibasilar atelectasis. 4. Calculous cholecystitis. Please note that all CT scans at this facility use dose modulation, iterative reconstruction, and/or weight-based dosing when appropriate to reduce radiation dose to as low as reasonably achievable. Dictated by Darlene Gonzalez MD @ 01/16/2025 10:45:38 AM (Electronically Signed)
[2025-01-16 08:57] LABS: Lactate* 1.4 mmol/L (0.5-1.9)
[2025-01-16] MEDS: NITROGLYCERIN 0.4 MG TAB.SUBL SUBLINGUAL (09:28)
[2025-01-16] MEDS: SODIUM CHLORIDE 0.9 % (FLUSH) 10 ML SYRINGE 5 ML IVF ×2 (09:28→13:00)
[2025-01-16] MEDS: AMOXICILLIN 250 MG CAPSULE 500 MG PO (10:34)
[2025-01-16] MEDS: ASPIRIN 81 MG TABLET EC PO (10:35)
[2025-01-16] MEDS: CALCIUM CARBONATE 500 MG TABLET PO (10:35)
[2025-01-16] MEDS: MAGNESIUM OXIDE 400 MG TABLET 800 MG PO (10:35)
[2025-01-16] MEDS: ISOSORBIDE MONONITRATE ER 30 MG TAB PO (10:35)
[2025-01-16] MEDS: CLOPIDOGREL 75 MG TABLET PO (10:35)
--- NOTE | 2025-01-16 11:18 | REH.SLP ---
WE[employer] INTERN orders received and chart reviewed. Spoke with Dr. Sebastian who requested we complete swallow evaluation on Thursday as patient is nauseous today. Will reschedule for Thursday AM.
[2025-01-16] MEDS: PERFLUTREN LIPID MICROSPHERES 2 ML VIAL IVP (11:20)
[2025-01-16 12:56] LABS: INR 0.99 (0.91-1.10); Prothrombin Time 13.9 Seconds
[2025-01-16] MEDS: HEPARIN 5,000 UNIT/0.5 ML INJ 4000 UNIT IVP (12:59)
[2025-01-16] MEDS: HEPARIN 25,000 UNIT/500 ML BAG 20 UNIT IV (13:36)
[2025-01-16] MEDS: PIPERACILLIN/TAZOBACTAM 3.375 GM in 0.9 % SODIUM CHLORIDE Mini-bag 100 ML IVPB (15:02)
--- NOTE | 2025-01-16 16:26 | PM.DS1 ---
DS: Providers Provider Time Seen by Provider: 07:46 Date Seen: 01/16/25 Date of admission: 01/12/25 22:58 Primary care physician: Kevin Nelson MD Admitting Clinician: Gladis Stevens MD Consults: 01/12/25 23:04 Consult to Physical Therapy [CONS] Routine Comment: Reason(s) for PT Consult:: Evaluate and Treat Any Restrictions?:: No Restrictions 01/12/25 23:08 Consult to Occupational Therapy [CONS] Routine Comment: Reason(s) for OT Consult:: Evaluate and Treat Any Restrictions?:: No Restrictions 01/13/25 11:11 Consult to Nutrition [CONS] Routine Comment: Reason for consult:: Weight Loss 01/15/25 16:36 Consult to Occupational Therapy [CONS] Routine Comment: Reason(s) for OT Consult:: Evaluate and Treat Any Restrictions?:: No Restrictions Comment: MOCA Consult to Speech Therapy [CONS] Routine Comment: Reason(s) for Speech Consult:: Swallowing Difficulty Attending Physician on discharge: Gladis Stevens MD Date of Discharge: 01/16/25 DS: Diagnosis Discharge Diagnosis (1) Hypocalcemia: Status: Acute Problem details: - suspect this was due to severe hypomagnesemia causing PTH suppression and resistance (PTH level is wnl); since Mg level normalized, Ca has come up more quickly - symptoms continue to improve - hold PPI indefinitely - continue oral calcium supplementation, add a dose of IV calcium today as well (2) Hypomagnesemia: Status: Acute Problem details: - probably secondary to GI loss from profuse diarrhea since discharge from [facility]. On my differential was C diff considering that his appetite was low as well, however his appetite has improved and he has not had any bowel movement since admission, so C diff is less likely, monitor for any diarrhea and if it is present, check for C diff. - continue to hold PPI - Downward trend despite increasing oral magnesium supplementation. Give another dose of IV magnesium today although it is still within normal limits, continue oral magnesium supplementation - Suspect possible RTA or other compounding cause of hypomagnesemia. Would likely benefit from outpatient nephrology consult. (3) Diabetes mellitus type 2, controlled: Status: Chronic Problem details: - A1C was 5.6 on 12/26/24, holding Metformin and Glipizide - POC glucoses remain elevated on sliding scale, may make repletion of calcium challenging. Started low dose Lantus 01/14. (4) Calculous cholecystitis: Status: Acute (5) NSTEMI (non-ST elevated myocardial infarction): Status: Acute (6) Weakness: Status: Acute Problem details: - likely related to above - improving as electrolytes improve - continue therapy - 01/14 I discussed possible rehab with the patient and his family today. His daughter was thinking this might be a good thing, but his wants to take him home and states that they did not have a good experience at [facility]. - 01/15 Patient doing much better. hoping to take him home today; she wants him to shower first. (7) Atonic bladder: Status: Acute Problem details: - self catheterization at home QID, Lora placed in ER 01/12/25 - Lora catheter discontinued, restarted catheterization q.i.d. and p.r.n. on 01/14 (8) Altered mental status: Status: Acute Problem details: - Suspect due to possible AK (9) Coronary artery disease: Status: Chronic Problem details: - recurrent interventions with coronary stents (2006, 2013, 2016 angioplasty, 2019, 2021, 2024). Continue Plavix and aspirin (10) Anemia: Status: Acute Problem details: - chronic, normocytic, mild, has been 10.3-11.0 since hip fracture in 10/2024 - 11.9 on 01/12/25 - 01/13 stable at 11.4 - 01/15 stable at 11.8 (11) Decubitus ulcer of coccygeal region, stage 1: Status: Acute Problem details: - according to family, this is present since hip fracture 11/14/24 - no open areas - offload, frequent repositioning, mepilex dressing (12) Cognitive changes: Status: Acute Problem details: - Since April, per family - May benefit from outpatient cognitive testing - Also pocketing food. Obtain speech eval (13) Elevated troponin I level: Status: Acute Problem details: - has h/o CAD, AK. Suspect NSTEMI, give Aspirin 325mg now, repeat trop and EKG in 2 hours. If not stable or trending down, consult cardiology, ECHO tomorrow. - discussed this and results of studies above with family. (14) Enterococcus faecalis infection: Status: Acute Problem details: - UTI, treating with oral amoxicillin (15) Essential tremor: Status: Acute Problem details: - diagnosis 10/2024, Propanolol initiated at that time which was helpful until 01/06/25 when he self-discontinued - exacerbated by electrolyte disturbances (16) Fall: Status: Acute Problem details: - Suspect due to either vasovagal or AK, no evidence for stroke, POC glucose elevated, so this was not due to hypoglycemia (17) History of coronary artery stent placement: Status: Acute Problem details: - total of 5 coronary stents placed, most recently 05/17 in the RCA with EF 60% at that time; had restenosis of a stent in his diagonal which was not amenable to intervention - [employer] recommends clopidogrel and aspirin for 1 year (until April 2025), followed by Clopidogrel indefinitely - continued on admission (18) Weight loss: Status: Acute Problem details: - has lost 12kg since hospitalization in 10/2024 for hip fracture, unclear if this is related to current electrolyte disturbance - nutrition consult - nutritional supplements (he is doing well with the clear ensure) (19) Stage 3 chronic kidney disease: Status: Acute Problem details: - Creatinine 1.0, baseline, stable (20) Status post hemiarthroplasty of right hip: Status: Acute Problem details: 11/14/2024 (21) Skin maceration: Status: Acute Problem details: - gluteal cleft - appears superficial currently. No evidence of acute infection or cellulitis. - skin cares, Mepilex, offloading - according to family, this is present since hip fracture 11/14/24 - no open areas - offload, frequent repositioning, mepilex dressing (22) Hypertension: Status: Chronic Problem details: - continue home medications (holding losartan) (23) Nasal bone fracture: Status: Suspected Problem details: due to fall DS: Summary Time Spent with Patient Time attestation: Total time spent providing and/or coordinating discharge services: Exam Const: Vital Signs, click to edit/add: Vital Signs - 24 hr 01/15/25 16:46 01/15/25 19:29 01/15/25 23:00 Temperature 98.4 F Pulse Rate 83 Pulse Rate [Pulse Oximeter] 91 86 Respiratory Rate 18 18 Blood Pressure [Ri ght Arm] 138/84 Pulse Oximetry 100 Oxygen Delivery Me thod Room Air 01/15/25 23:45 01/16/25 01:16 01/16/25 03:00 Temperature 98.0 F 97.6 F Pulse Rate 82 Pulse Rate [Pulse Oximeter] 86 94 Respiratory Rate 18 16 Blood Pressure [Ri ght Arm] 138/89 144/91 H Pulse Oximetry 95 100 Oxygen Delivery Me thod Room Air Room Air 01/16/25 07:00 01/16/25 07:00 01/16/25 07:59 Temperature 97.8 F Pulse Rate 88 Pulse Rate [Pulse Oximeter] 91 88 Respiratory Rate 20 Blood Pressure [Ri ght Arm] 138/86 Pulse Oximetry 96 Oxygen Delivery Me thod Room Air 01/16/25 11:00 01/16/25 14:26 01/16/25 15:12 Temperature 97.9 F 97.8 F Pulse Rate 86 Pulse Rate [Pulse Oximeter] 91 85 Respiratory Rate 20 20 Blood Pressure [Ri ght Arm] 133/85 139/88 Pulse Oximetry 97 93 Oxygen Delivery Me thod Room Air Room Air DS: Data Data Completed and Pending Completed studies during hospitalization: Procedures Replacement of Right Hip Joint, Femoral Surface with Metal Synthetic Substitute, Uncemented, Open Approach (11/13/24) Labs on day of discharge: Labs from last 24 hours 01/16/25 01/16/25 01/15/25 08:50 05:47 19:11 WBC 9.13 RBC 4.06 L Hgb 12.1 L Hct 37.0 MCV 91 MCH 30 MCHC 33 Plt Count 156 INR 0.99 APTT 35 H VBG pH 7.446 H VBG pCO2 37 L VBG pO2 55.2 H VBG HCO3 25 Sodium 133 L Potassium 4.6 Chloride 101 Carbon Dioxide 25 Anion Gap 7 BUN 7 Creatinine 0.7 Estimated Creat Clear 56.48 Estimated GFR 90 Glucose 213 H Lactate 1.4 Calcium 8.9 Phosphorus 3.4 Magnesium 1.8 Total Bilirubin 0.5 Direct Bilirubin 0.2 AST 22 ALT 15 Alkaline Phosphatase 72 Troponin I 0.46 H* C-Reactive Protein 6.1 H NT-Pro-B Natriuret Pep 56458 H Total Protein 5.6 L Albumin 3.2 L Triglycerides 108 Cholesterol 108 LDL Cholesterol, Calc 43 HDL Cholesterol 43 Lab Acknowledgement Test Added 01/15/25 01/15/25 01/15/25 16:57 16:55 05:58 WBC RBC Hgb Hct MCV MCH MCHC Plt Count INR APTT VBG pH VBG pCO2 VBG pO2 VBG HCO3 Sodium Potassium Chloride Carbon Dioxide Anion Gap BUN Creatinine Estimated Creat Clear Estimated GFR Glucose Lactate Calcium Phosphorus Magnesium Total Bilirubin 0.3 Direct Bilirubin 0.2 AST 30 ALT 17 Alkaline Phosphatase 71 Troponin I 0.57 H* 0.67 H* C-Reactive Protein NT-Pro-B Natriuret Pep Total Protein 5.5 L Albumin 3.1 L Triglycerides Cholesterol LDL Cholesterol, Calc HDL Cholesterol Lab Acknowledgement Test Added 01/14/25 01/14/25 11:55 05:45 WBC RBC Hgb Hct MCV MCH MCHC Plt Count INR APTT VBG pH VBG pCO2 VBG pO2 VBG HCO3 Sodium Potassium Chloride Carbon Dioxide Anion Gap BUN Creatinine Estimated Creat Clear Estimated GFR Glucose Lactate Calcium Phosphorus Magnesium Total Bilirubin 0.3 Direct Bilirubin 0.2 AST 28 ALT 15 Alkaline Phosphatase 59 Troponin I < 0.01 < 0.01 C-Reactive Protein NT-Pro-B Natriuret Pep Total Protein 5.0 L Albumin 2.8 L Triglycerides Cholesterol LDL Cholesterol, Calc HDL Cholesterol Lab Acknowledgement Discharge Plan Discharge Disposition: Home, Self-Care Date of Admission: 01/12/25 22:58 Attending Provider on Discharge: Joya Sebastian Primary Care Provider: Kevin Nelson Condition: Improved Anticipated Discharge Date/Time: 01/15/25 13:17 Discharge Medications: No Action metformin 1,000 mg tablet 1,000 mg PO BID ranolazine 500 mg tablet extended release 12 hr 500 mg PO Q12H aspirin 81 mg tablet 81 mg PO DAILY Qty: 30 2RF Rx Instructions: restart ASPIRIN and Plavix on 11/20/24 omeprazole 20 mg Capsule,Delayed Release(Dr/Ec) 20 mg PO HS albuterol sulfate 90 mcg/actuation HFA aerosol inhaler 1 - 2 puff INHALATION Q4H PRN (Reason: dyspnea) cyanocobalamin (vitamin B-12) [Vitamin B-12] 100 mcg tablet 50 mcg PO DAILY clopidogrel 75 mg tablet 75 mg PO DAILY glipizide 5 mg tablet 5 mg PO BIDWM isosorbide mononitrate 30 mg tablet extended release 24 hr 30 mg PO DAILY losartan 50 mg tablet 50 mg PO DAILY nitroglycerin 0.4 mg tablet, sublingual 0.4 mg sublingual Q5M PRN rosuvastatin 20 mg tablet 10 mg PO HS Patient Comments: TAKE 1/2 TABLET BY MOUTH EVERY EVENING Additional Instructions: - Resume home care. - Speech therapy for swallowing difficulty - Nutrition fo weight loss Activity Level: Use Walker Discharge Diet: Regular Diet Detail: Ensure clear twice a day Follow Up Appointments: Kevin Nelson MD [Primary Care Provider, Family Practice] Referral Note: Early THIS week (Thu-Wed), Potassium, magnesium, ionized calcium Forms: [employer] Info Instructions
--- NOTE | 2025-01-16 16:53 | PM.DST ---
Transfer Discharge Sum: Prov Provider Time Seen by Provider: 07:46 Date Seen: 01/16/25 Date of admission: 01/12/25 22:58 Primary care physician: Kevin Nelson MD Consults: 01/12/25 23:04 Consult to Physical Therapy [CONS] Routine Comment: Reason(s) for PT Consult:: Evaluate and Treat Any Restrictions?:: No Restrictions 01/12/25 23:08 Consult to Occupational Therapy [CONS] Routine Comment: Reason(s) for OT Consult:: Evaluate and Treat Any Restrictions?:: No Restrictions 01/13/25 11:11 Consult to Nutrition [CONS] Routine Comment: Reason for consult:: Weight Loss 01/15/25 16:36 Consult to Occupational Therapy [CONS] Routine Comment: Reason(s) for OT Consult:: Evaluate and Treat Any Restrictions?:: No Restrictions Comment: MOCA Consult to Speech Therapy [CONS] Routine Comment: Reason(s) for Speech Consult:: Swallowing Difficulty Attending physician on discharge: Joya Sebastian Anticipated date of transfer: 01/16/25 Receiving physician/facility: Dr. Krissy Rodriguez DS: Diagnosis Discharge Diagnosis (1) NSTEMI (non-ST elevated myocardial infarction): Status: Acute Problem details: - Elevated troponin 01/15/25 am, trending down from there, peak 0.67, EKGs essentially unchanged. ECHO shows new wall motion abnormalities with akinesis of the apex. Dr. Rey, have a Cardiology, accepted this patient in transfer to the hospitalist service (2) History of coronary artery stent placement: Status: Acute Problem details: - total of 5 coronary stents placed, most recently 05/17 in the RCA with EF 60% at that time; had restenosis of a stent in his diagonal which was not amenable to intervention - [employer] Administrator recommends clopidogrel and aspirin for 1 year (until April 2025), followed by Clopidogrel indefinitely - continued on admission (3) Coronary artery disease: Status: Chronic Problem details: - recurrent interventions with coronary stents (2006, 2013, 2016 angioplasty, 2019, 2021, 2024). Continue Plavix and aspirin (4) Calculous cholecystitis: Status: Suspected Problem details: - Possible. Seen on CT 01/16/2025. Patient has remained afebrile, white count is unremarkable, LFTs are unremarkable, abdominal examination reveals no quadrant pain or tenderness. - IV Zosyn started 01/16/2025 - patient is not a good surgical candidate at this time, could consider IR drainage with percutaneous drain, this is not available at [facility], transferring to [facility] (5) Enterococcus faecalis infection: Status: Acute Problem details: - UTI, initially treated with oral amoxicillin, changed to Zosyn 01/16/2025 due to calculus cholecystitis seen at CT (6) Nasal bone fracture: Status: Suspected Problem details: due to fall - family aware, can see outpatient ENT in a few weeks if desired (7) Altered mental status: Status: Acute Problem details: - Suspect due to possible DC (8) Elevated troponin I level: Status: Acute Problem details: - 01/15 has h/o CAD, DC. Suspect NSTEMI, give Aspirin 325mg now, repeat trop and EKG in 2 hours. If not stable or trending down, consult cardiology, ECHO tomorrow. - 01/16 trop trending down, patient remains somnalent with intermittent nausea/heartburn, nitro did not help, ECHO shows new WMA. Transfer to [facility] for cardiology (9) Fall: Status: Acute Problem details: - Suspect due to either vasovagal or DC, no evidence for stroke, POC glucose elevated, so this was not due to hypoglycemia (10) Cognitive changes: Status: Acute Problem details: - Since April, per family, MOCA pending - May benefit from outpatient cognitive testing - Also pocketing food. Speech eval pending (11) Decubitus ulcer of coccygeal region, stage 1: Status: Acute Problem details: - according to family, this is present since hip fracture 11/14/24 - no open areas, No evidence of acute infection or cellulitis - offload, frequent repositioning, mepilex dressing (12) Weight loss: Status: Acute Problem details: - has lost 12kg since hospitalization in 10/2024 for hip fracture, unclear if this is related to current electrolyte disturbance - nutrition consult - nutritional supplements (he is doing well with the clear ensure) (13) Weakness: Status: Acute Problem details: - likely related to above - improving as electrolytes improve - continue therapy - 01/14 I discussed possible rehab with the patient and his family today. His daughter was thinking this might be a good thing, but his wants to take him home and states that they did not have a good experience at [facility]. - 01/15 Patient doing much better. hoping to take him home today; she wants him to shower first. - 01/16 Patient more weak, somnalent, likely due to NSTEMI, hold on PT/OT to reduce potential cardiac strain (14) Hypomagnesemia: Status: Acute Problem details: - probably secondary to GI loss from profuse diarrhea since discharge from [facility]. On my differential was C diff considering that his appetite was low as well, however his appetite has improved and he has not had any bowel movement since admission, so C diff is less likely, monitor for any diarrhea and if it is present, check for C diff. - continue to hold PPI - Downward trend despite increasing oral magnesium supplementation. Give another dose of IV magnesium today although it is still within normal limits, continue oral magnesium supplementation - Suspect possible RTA or other compounding cause of hypomagnesemia. Would likely benefit from outpatient nephrology consult. - 01/16 Mg wnl, stable, doing well with oral supplementation (15) Hypocalcemia: Status: Acute Problem details: - suspect this was due to severe hypomagnesemia causing PTH suppression and resistance (PTH level is wnl); since Mg level normalized, Ca has come up more quickly - symptoms continue to improve - hold PPI indefinitely - continue oral calcium supplementation, add a dose of IV calcium today as well - 01/16 Ca wnl, stable, doing well with oral supplementation (16) Status post hemiarthroplasty of right hip: Status: Chronic Problem details: 11/14/2024 (17) Cognitive impairment: Status: Chronic Problem details: - family states this has been noticeable since (18) Essential tremor: Status: Acute Problem details: - diagnosis 10/2024, Propanolol initiated at that time which was helpful until 01/06/25 when he self-discontinued - exacerbated by electrolyte disturbances - Improving, back to baseline (19) Impairment of balance: Status: Acute Problem details: - balance difficulties due to peripheral neuropathy prior to hip fracture - PT/OT (20) Peripheral neuropathy: Status: Acute Problem details: Chronic. Unknown cause. Normal vitamin B12 level (21) Hypertension: Status: Chronic Problem details: - continue home medications (holding losartan due to low Mg, Ca) (22) Anemia: Status: Acute Problem details: - chronic, normocytic, mild, has been 10.3-11.0 since hip fracture in 10/2024 - 11.9 on 01/12/25 - 01/13 stable at 11.4 - 01/15 stable at 11.8 - 01/16 12.1 (23) Stage 3 chronic kidney disease: Status: Acute Problem details: - Creatinine 0.7, baseline (24) Diabetes mellitus type 2, controlled: Status: Chronic Problem details: - A1C was 5.6 on 12/26/24, holding Metformin and Glipizide - POC glucoses remain elevated on sliding scale, may make repletion of calcium challenging. Started low dose Lantus 01/14. (25) Atonic bladder: Status: Acute Problem details: - self catheterization at home QID, Vallecillo placed in ER 01/12/25 - Vallecillo catheter discontinued, restarted catheterization q.i.d. and p.r.n. on 01/14 - replacing vallecillo 01/16/25 due to AMS, need for transfer for cardiac issues Transfer Discharge Sum: Med Medications Active and Home Medications: Home Medications clopidogrel 75 mg tablet 75 mg PO DAILY 10/25/21 [History Confirmed 01/12/25] glipizide 5 mg tablet 5 mg PO BIDWM 10/25/21 [History Confirmed 01/12/25] isosorbide mononitrate 30 mg tablet,extended release 24 hr 30 mg PO DAILY 10/25/21 [History Confirmed 01/12/25] losartan 50 mg tablet 50 mg PO DAILY 10/25/21 [History Confirmed 01/12/25] nitroglycerin 0.4 mg sublingual tablet 0.4 mg sublingual Q5M PRN 10/25/21 [History Confirmed 01/12/25] rosuvastatin 20 mg tablet 10 mg PO HS 10/25/21 [History Confirmed 01/12/25] metformin 1,000 mg tablet 1,000 mg PO BID 11/14/24 [History Confirmed 01/12/25] ranolazine 500 mg tablet,extended release,12 hr 500 mg PO Q12H 11/14/24 [History Confirmed 01/12/25] aspirin 81 mg tablet 81 mg PO DAILY #30 tabs 11/17/24 [Rx Confirmed 01/12/25] albuterol sulfate 90 mcg/actuation aerosol inhaler 1 - 2 puff inhalation Q4H PRN dyspnea 01/13/25 [History Confirmed 01/13/25] cyanocobalamin (vitamin B-12) 100 mcg tablet (Vitamin B-12) 50 mcg PO DAILY 01/13/25 [History Confirmed 01/13/25] omeprazole 20 mg capsule,delayed release 20 mg PO HS 01/13/25 [History Confirmed 01/13/25] Active Medications Acetaminophen (Acetaminophen 325 Mg Tablet) 975 mg PO Q6H PRN Last Admin: 01/15/25 01:56 Dose: 975 mg Aspirin (Aspirin 81 Mg Tablet Ec) 81 mg PO DAILY [facility] Last Admin: 01/16/25 10:35 Dose: 81 mg Bisacodyl (Bisacodyl 10 Mg Supp.Rect) 10 mg IA DAILY PRN PRN Reason: Constipation Calcium Carbonate (Calcium Carbonate 500 Mg Tablet) 500 mg PO TID [facility] Last Admin: 01/16/25 15:12 Dose: Not Given Clopidogrel Bisulfate (Clopidogrel 75 Mg Tablet) 75 mg PO DAILY [facility] Last Admin: 01/16/25 10:35 Dose: 75 mg Docusate Sodium (Docusate Sodium 100 Mg Capsule) 100 mg PO BID PRN PRN Reason: Constipation Hydralazine HCl (Hydralazine Hcl 20 Mg/Ml Inj) 10 mg IVP ONCE PRN PRN Reason: Hypertension Heparin Sodium/Dextrose (Heparin) 25,000 unit in 500 mls @ 0 mls/hr IV .Q0M [facility]; Protocol Last Admin: 01/16/25 13:36 Dose: 1,000 unit/hr, 20 mls/hr Piperacillin Sod/Tazobactam (Sod 3.375 gm/ Sodium Chloride) 100 mls @ 200 mls/hr IVPB Q6H [facility] Last Admin: 01/16/25 15:02 Dose: 200 mls/hr Insulin Aspart (Insulin Aspart 100 Unit/Ml) 0 unit SUBCUT 0000,0600,1200,1800 [facility]; Protocol Last Admin: 01/16/25 14:33 Dose: Not Given Insulin Glargine (Insulin Glargine,Hum.Rec.Anlog 100 Unit/Ml Insuln.Pen) 5 unit SUBCUT [facility] Last Admin: 01/15/25 21:38 Dose: 5 unit Isosorbide Mononitrate (Isosorbide Mononitrate Er 30 Mg Tab) 30 mg PO DAILY [facility] Last Admin: 01/16/25 10:35 Dose: 30 mg Lidocaine/Aluminum/Magnesium/Simeth (Mag Hydrox/Aluminum Hyd/Simeth 30 Ml Oral.Susp) 15 ml PO QID PRN PRN Reason: Indigestion Losartan Potassium (Losartan Potassium 50 Mg Tablet) 50 mg PO DAILY [facility] On Hold: 01/13/25 13:05 Last Admin: 01/13/25 08:59 Dose: 50 mg Magnesium Oxide (Magnesium Oxide 400 Mg Tablet) 800 mg PO BID [facility] Last Admin: 01/16/25 10:35 Dose: 800 mg Ondansetron HCl (Ondansetron 2 Mg/Ml Inj) 4 mg IVP Q6H PRN PRN Reason: Nausea Last Admin: 01/16/25 03:58 Dose: 4 mg Polyethylene Glycol (Polyethylene Glycol 3350 17 Gm Pack) 17 gm PO DAILY PRN PRN Reason: Constipation Rosuvastatin Calcium (Rosuvastatin Calcium 10 Mg Tablet) 10 mg PO HS [facility] Last Admin: 01/15/25 21:22 Dose: 10 mg Sodium Chloride (Sodium Chloride 0.9 % (Flush) 10 Ml Syringe) 5 ml IVF .FLUSH PRN Last Admin: 01/16/25 13:00 Dose: 5 ml Sodium Chloride (Sodium Chloride 0.9 % (Flush) 10 Ml Syringe) 5 ml IVF BID [facility] Last Admin: 01/16/25 09:28 Dose: 5 ml Sodium Chloride (0.9 % Sodium Chloride 250 Ml) 250 ml IV Q24H [facility] Last Admin: 01/16/25 15:10 Dose: 250 ml Transfer Discharge Sum: Hosp Hospital Course Hospital course: Pratik Madera is a 84 year old male with an extensive cardiac history including multiple stents, history of cognitive impairment, peripheral vascular disease, atonic bladder for which he self caths, diabetes mellitus type 2, stage 3 chronic kidney disease, hypertension, anemia, hyperlipidemia, peripheral neuropathy, impaired balance, and essential tremor who was brought to the emergency room on 01/12/2025 his family for concerns of weakness and confusion for a few days. His family actually tells me the story starts back in March or April when he had a non ST elevation DC and had cardiac stents placed at [facility]. Since then his cognition declined and then he fell in October sustaining a right hip fracture for which he had an ORIF and then was discharged to [facility] for rehab. While there he was sent to the emergency department for a urinary tract infection and was on antibiotics for a bit. His family is not sure when exactly the diarrhea started, but he was discharged home from [facility] and they note that he had profuse watery diarrhea at that time continued to have diarrhea, but less watery for the next several weeks. He seemed to get weaker and weaker and then a few days before admission he was also confused was so weak that he could barely lift his head up. His also noted that his tremors have gotten worse. Also during those weeks his appetite had become poor and his thinks he lost about 20 lb. He did not have any chest pains or discomfort or shortness of breath during that time. Upon presentation he was found to have a magnesium of 0.4, calcium 6.4, and ionized calcium 0.74. Sodium and potassium were within normal limits. His lactate was initially 2.8. Urinalysis was abnormal in his urine culture grew out Enterococcus faecalis. He was admitted to the hospital for IV replacement of magnesium and calcium and his proton pump inhibitor has been held since admission. His strength returned and there is decreased as his electrolytes were replaced and stabilized. Early in the morning on 01/15/2025 he complained of abdominal pain and vomited. An EKG was unchanged and abdominal x-ray was unremarkable. He no longer had the Vallecillo catheter in that had been placed on admission, and when he was catheterized for 400 mL at 3:30 a.m., the pain and nausea resolved. By morning he felt better and we were discussing discharge home. He was getting a shower in the afternoon with occupational therapy when his mentation was noticed to be different and he seemed confused and not following directions. He fell in the shower area and sustained bruising to his left forehead, possible nasal fracture, and several skin tears on his hand. Imaging was done as below and was unremarkable. Labs revealed an elevated troponin and a troponin was added on to the labs that had been drawn that morning and was also elevated. Further add on troponins revealed that it was not elevated prior to 01/15/2025. He was given aspirin 325 mg orally. Troponin continued to trend downward, EKG remained essentially unchanged, but patient remained somnolent and nauseous at times. I spoke with Cardiology, Dr. Godwin from [facility], this morning to discuss the case and asked if patient should be transferred for further cardiologic investigation. Dr. Godwin suggested further workup including investigation in to potential GI cause and echocardiogram. He also suggested holding off on heparin for now. Further imaging was obtained including a chest CT which was negative for PE, does have small bilateral pleural effusions, and CT abdomen and pelvis which showed calculus cholecystitis and urinary cystitis. Patient was started on IV Zosyn. Echocardiogram was also obtained and showed new wall motion abnormalities/akinesis of the apex. In discussion with patient's family, they noted that patient usually saw a tour narrator at [facility] and requested transfer there. I have been on the phone frequently with [facility] today requesting transfer and I spoke with the doctor Nathaniel Soria from Cardiology there who had accepted this patient in transfer but wanted me to speak with the tour narrator for a final acceptance. [facility] asked for my signature on a form that they would e-mail to me. I watched out for and received that e-mail and immediately signed it without delay. Multiple phone calls to [facility] revealed that they still had not received the signed form electronically and so we sent it via fax. Multiple phone calls were again made to [facility] and they continued to say that they were reviewing the forms, but the fax process was longer for them. I then received a call back with a hospitalist, Dr. Uriostegui, who accepted this patient in transfer, and while we were on the phone, we received word that there were no more beds available at [facility]. They then were looking at beds at [facility]. I informed the family of this change and they were okay with going to [facility]. After about an hour I received word that [facility] had lost power and they were unsure when they could take admissions. I informed the family of such and they desired transfer to [facility]. Called and spoke with Dr. Rey who accepted this patient in transfer. I would frequently checked on the patient today and he and his vitals remained stable, remained somnolent but arousable, denied chest pain or discomfort, and denied nausea. Time Spent with Patient Time attestation: Total time spent providing and/or coordinating transfer services: Today I spent 100 minutes seeing the patient, updating the family frequently, discussing the case with [facility] and [facility] and multiple phone calls to both places to transfer the patient, reviewing [facility] and [facility] notes/diagnostics/labs, discussing the care plan with our care team that includes social work, PT/OT, pharmacy, RT, halfway and documenting my impressions and plan in the medical record. Exam Narrative: Exam Narrative: General: No acute distress. Sleepy, arousable, oriented to self and place, remembers who I am. No pallor. No jaundice. No tremors noted. Oropharynx: Clear. Mucous membranes slightly dry. Cardiovascular: Regular rate and rhythm. No murmurs, gallops, or rubs. Respiratory: Clear to auscultation bilaterally. No wheezes or crackles. Abdomen: Bowel sounds present. Soft, nondistended, nontender. Extremities: Trace bilateral lower extremity edema. Const: Vital Signs, click to edit/add: Vital Signs - 24 hr 01/15/25 19:29 01/15/25 23:00 01/15/25 23:45 Temperature 98.4 F 98.0 F Pulse Rate Pulse Rate [Pulse Oximeter] 91 86 86 Respiratory Rate 18 18 18 Blood Pressure [Ri ght Arm] 138/84 138/89 Pulse Oximetry 100 95 Oxygen Delivery Me thod Room Air Room Air 01/16/25 01:16 01/16/25 03:00 01/16/25 07:00 Temperature 97.6 F 97.8 F Pulse Rate 82 Pulse Rate [Pulse Oximeter] 94 91 Respiratory Rate 16 20 Blood Pressure [Ri ght Arm] 144/91 H 138/86 Pulse Oximetry 100 96 Oxygen Delivery Pa thod Room Air Room Air 01/16/25 07:00 01/16/25 07:59 01/16/25 11:00 Temperature 97.9 F Pulse Rate 88 Pulse Rate [Pulse Oximeter] 88 91 Respiratory Rate 20 Blood Pressure [Ri ght Arm] 133/85 Pulse Oximetry 97 Oxygen Delivery Me thod Room Air 01/16/25 14:26 01/16/25 15:12 Temperature 97.8 F Pulse Rate 86 Pulse Rate [Pulse Oximeter] 85 Respiratory Rate 20 Blood Pressure [Ri ght Arm] 139/88 Pulse Oximetry 93 Oxygen Delivery Me thod Room Air Transfer Discharge Sum: Data Data Completed and Pending Completed studies during hospitalization: 01/16/2025 echocardiogram: Not well visualized LV size, not well visualized wall thickness, moderately reduced global systolic function with an estimated EF of 30-35%. No contrast was administered to enhance visualization of all left ventricular segments. Multiple segmental abnormalities exist. Right ventricular cavity size is normal, global systolic RV function is normal. Normal left atrium size. Aortic valve is normal, trileaflet, and sclerotic, no stenosis and no regurgitation. Mitral valve is normal, no mitral regurgitation. Tricuspid valve is normal, mild tricuspid regurgitation. No pericardial effusion. Multiple EKGs done during this hospital stay, all of which are essentially unchanged. 01/16/2025 EKG: Sinus rhythm with first-degree AV block with premature atrial complexes. Right bundle-branch block, left posterior fascicular block, T-wave abnormality, consider lateral ischemia. Heart rate 93 beats per minute. Ordering Physician: Ishaan Smith MD Date of Service: 01/15/25 Procedure(s): XR abdomen 1V Accession Number(s): [id number] cc: Kevin Nelson M.D.; Ishaan Smith MD~ For Patients: As a result of the Cures Act, medical imaging exams and procedure reports are released immediately into your electronic medical record. You may view this report before your referring provider. If you have questions, please contact your health care provider. Indication: Abdominal pain Technique: Supine views of the abdomen Comparison: CT abdomen pelvis performed 11/28/2024 Findings/Impression: Nonspecific, nonobstructive bowel gas pattern with no acute radiographic abnormality appreciated. Dictated by Chris Perez MD @ 01/15/2025 3:58:15 AM (Electronically Signed) Ordering Physician: Joya Sebastian M.D. Date of Service: 01/15/25 Procedure(s): CT head/brain wo con Accession Number(s): [id number] cc: Joya Sebastian M.D.; Kevin Nelson M.D.~ For Patients: As a result of the Cures Act, medical imaging exams and procedure reports are released immediately into your electronic medical record. You may view this report before your referring provider. If you have questions, please contact your health care provider. Indication: Fall. Technique: Noncontrast CT of the facial bones with multiplanar reconstruction utilizing bone and soft tissue algorithms. Comparison: None available. Findings: Probable minimally displaced fracture of the left nasal bone (series 4, image 116). Symmetric globes without evidence of penetrating injury. Bilateral pseudophakia. Moderate left temporomandibular joint arthrosis. Mild mucosal thickening within sinuses. Impression: Probable minimally displaced fracture of the left nasal bone (series 4, image 116). Recommend clinical correlation for point tenderness. Please note that all CT scans at this facility use dose modulation, iterative reconstruction, and/or weight-based dosing when appropriate to reduce radiation dose to as low as reasonably achievable. Dictated by Jake Lyons MD @ 01/15/2025 2:40:38 PM (Electronically Signed) Ordering Physician: Joya Sebastian M.D. Date of Service: 01/15/25 Procedure(s): CT cervical spine wo con Accession Number(s): [id number] cc: Joya Sebastian M.D.; Kevin Nelson M.D.~ For Patients: As a result of the Cures Act, medical imaging exams and procedure reports are released immediately into your electronic medical record. You may view this report before your referring provider. If you have questions, please contact your health care provider. Indication: Fall. Technique: Noncontrast CT of the cervical spine with multiplanar reconstruction utilizing bone and soft tissue algorithms. Comparison: None available. Findings: No acute fracture or traumatic subluxation. No lytic or blastic lesion. Grade 1 3 mm anterolisthesis of C4 on C5. Atherosclerotic calcification of the carotid bifurcations. No high-grade spinal canal stenosis. Multilevel neural foraminal narrowing, severe on the left at C3-C4, severe on the left at C4-C5, moderate-severe bilaterally at C5-C6, and moderate-severe on the right at C6-C7. Impression: 1. No acute fracture or traumatic subluxation. 2. Advanced cervical spondylosis with multilevel neural foraminal narrowing. Please note that all CT scans at this facility use dose modulation, iterative reconstruction, and/or weight-based dosing when appropriate to reduce radiation dose to as low as reasonably achievable. Dictated by Jake Lyons MD @ 01/15/2025 2:44:53 PM (Electronically Signed) Ordering Physician: Joya Sebastian M.D. Date of Service: 01/15/25 Procedure(s): CT facial bones wo con Accession Number(s): [id number] cc: Joya Sebastian M.D.; Kevin Nelson M.D.~ For Patients: As a result of the Cures Act, medical imaging exams and procedure reports are released immediately into your electronic medical record. You may view this report before your referring provider. If you have questions, please contact your health care provider. INDICATION: Fall. TECHNIQUE: Noncontrast CT of the head with multiplanar reconstruction utilizing bone and soft tissue algorithms. COMPARISON: CT head dated 11/28/2024. FINDINGS: No acute intracranial hemorrhage. Similar scattered hypoattenuation within the supratentorial white matter typical of chronic small vessel ischemic changes. Streak artifact projecting over the posterior fossa. The ventricles are unchanged in size. There is similar mild diffuse parenchymal volume loss. No abnormal extra-axial fluid collection is identified. Intact calvarium. Bilateral pseudophakia. The imaged paranasal sinuses and mastoid air cells are clear. IMPRESSION: 1. No acute intracranial hemorrhage or mass effect. 2. Similar mild diffuse parenchymal volume loss and chronic small vessel ischemic changes. Please note that all CT scans at this facility use dose modulation, iterative reconstruction, and/or weight-based dosing when appropriate to reduce radiation dose to as low as reasonably achievable. Dictated by Jake Lyons MD @ 01/15/2025 2:48:20 PM (Electronically Signed) Ordering Physician: Joya Sebastian M.D. Date of Service: 01/15/25 Procedure(s): XR hip RT min 2V Accession Number(s): [id number] cc: Joya Sebastian M.D.; Kevin Nelson M.D.~ For Patients: As a result of the Cures Act, medical imaging exams and procedure reports are released immediately into your electronic medical record. You may view this report before your referring provider. If you have questions, please contact your health care provider. INDICATION: Hip injury from Fall, recent ORIF TECHNIQUE: Pelvis radiograph, Hip radiograph 3 views right COMPARISON: 12/29/2024 FINDINGS: Bone: No acute fractures or aggressive bone lesions are identified. Moderate diffuse osteopenia is present. Joint: Right hip arthroplasty is noted without interval change. The visualized sacroiliac joints are unremarkable in appearance. The pubic symphysis is normal in appearance. Soft tissue: Unremarkable. No radiopaque foreign bodies are seen. Moderate vascular calcifications are present. IMPRESSION: 1. No acute osseous injuries are noted. Dictated by Sanjiv Ramirez MD @ 01/15/2025 2:21:01 PM Prelim Report By Dr. Sanjiv Ramirez @ 01/15/2025 2:21:05 PM ADDENDUM Dictated by: MD @ 01/15/2025 14:22:41 (Electronically Signed) Ordering Physician: Joya Sebastian M.D. Date of Service: 01/16/25 Procedure(s): CT abdomen pelvis w con Accession Number(s): [id number] cc: Joya Sebastian M.D.; Kevin Nelson M.D.~ For Patients: As a result of the Century Cures Act, medical imaging exams and procedure reports are released immediately into your electronic medical record. You may view this report before your referring provider. If you have questions, please contact your health care provider. INDICATION: Heartburn, abdominal pain, pallor. COMPARISON: 11/28/2024 TECHNIQUE: CT of the abdomen and pelvis with intravenous contrast. Multiplanar axial, coronal, and sagittal reformats were reconstructed. Contrast: 95 mL Isovue 370. FINDINGS: Lung bases: There are small bilateral pleural effusions and bibasilar atelectasis. Liver: Small focal fat at the superior falciform ligament. Gallbladder and bile ducts: Cholecystitis. The gallbladder is distended. The gallbladder wall is thickened and hyperenhancing. There is circumferential pericholecystic edema. There are several gallstones at the gallbladder neck and in the proximal cystic duct. The intrahepatic bile ducts are not dilated. The extrahepatic bile duct is not dilated. No calcified choledocholithiasis. Pancreas: Normal. Spleen: Normal. Adrenal glands: Normal. Kidneys: Normal parenchyma. There is a 1.4 centimeter left renal cyst. No calculi. Bilateral extrarenal pelviectasis appears physiologic. No worrisome urinary tract fixation Urinary bladder: Bladder wall thickening and hyperemia. Pelvis: Streak artifact from the hip arthroplasty. Prostate size is unremarkable for age. Vessels: Heavy atherosclerosis. No aortic aneurysm. 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 Possible stenosis of both renal arteries as well. Bowel: Hyperdense ingested material in the stomach. There is some wall thickening and edema of the gastric antrum and proximal duodenum. No other dilated or inflamed small bowel or colon. Normal appendix. Few scattered diverticuli. No diverticulitis. Moderate stool burden. Lymph nodes: No adenopathy. Peritoneum: No ascites. Abdominal wall: No hernia. 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 Disc and facet degeneration. Thoracic DISH. No acute fractures. No focal worrisome bone lesions. IMPRESSION: 1. Calculus cholecystitis. No biliary ductal dilatation. No choledocholithiasis seen or suspected. 2. Mild gastritis and proximal duodenitis. No perforation. No findings of a fistula between the duodenal and biliary tree. 3. Urinary bladder cystitis. Please note that all CT scans at this facility use dose modulation, iterative reconstruction, and/or weight-based dosing when appropriate to reduce radiation dose to as low as reasonably achievable. Dictated by Darlene Gonzalez MD @ 01/16/2025 10:35:43 AM (Electronically Signed) Ordering Physician: Joya Sebastian M.D. Date of Service: 01/16/25 Procedure(s): CT angio chest PE protocol Accession Number(s): [id number] cc: Joya Sebastian M.D.; Kevin Nelson M.D.~ For Patients: As a result of the Century Cures Act, medical imaging exams and procedure reports are released immediately into your electronic medical record. You may view this report before your referring provider. If you have questions, please contact your health care provider. INDICATION: Heartburn, abdominal pain, pallor. COMPARISON: Same day CT abdomen pelvis, chest radiograph 11/28/2024 TECHNIQUE: CT angiogram chest with contrast, pulmonary embolism protocol. Multiplanar axial, coronal, and sagittal reformats are included. MIP images to improve detection of pulmonary emboli are included. Intravenous contrast: 95 mL Isovue 370. FINDINGS: PE: Well-timed contrast bolus. No pulmonary emboli. Normal caliber main pulmonary artery. Normal sized right heart chambers. No reflux of contrast below the diaphragm. Airway: Expiratory appearance of the airway. Lungs: Expiratory appearance of the lungs. Bibasilar atelectasis. There is a 5 millimeter nodule in the right middle lobe on series 5, image 106. There is a 5 millimeter nodule in the right middle lobe on series 5, image 136 this nodule has been stable since at least 2020. There is a 3 millimeter nodule in the right upper lobe on series 5, image 77. There is a 3 millimeter nodule in the left upper lobe on series 5, image 98. Partially seen in 202. No consolidation. No edema or emphysema. Pleura: There are small bilateral pleural effusions layering posteriorly and inferiorly without loculation. These are new compared to the prior CT from 11/28/2024. no pneumothorax. Lymph nodes: No thoracic adenopathy. Mediastinum: No pneumomediastinum. No mass. Heart and great vessels: No pericardial effusion. Normal cardiac chamber size. Heavy calcified atherosclerotic plaques. No aortic aneurysm. Chest wall: Normal. No masses. Upper abdomen: Calculus cholecystitis. Bones: No fractures. No focal bone lesions. Thoracic dish. Disc and facet degeneration. IMPRESSION: 1. No pulmonary embolism. 2. Small bilateral pleural effusions of unclear etiology. 3. Expiratory appearance of the lungs. Low volumes and bibasilar atelectasis. 4. Calculous cholecystitis. Please note that all CT scans at this facility use dose modulation, iterative reconstruction, and/or weight-based dosing when appropriate to reduce radiation dose to as low as reasonably achievable. Dictated by Darlene Gonzalez MD @ 01/16/2025 10:45:38 AM (Electronically Signed) Discharge Plan Discharge Disposition: [facility] Date of Admission: 01/12/25 22:58 Attending Provider on Discharge: Joya Sebastian Primary Care Provider: Kevin Nelson Condition: Guarded Discharge Orders: Transfer of Care to Other Hospital (ORDER); Ordered 01/16/25 Ordered By: Joya Sebastian Oxygen: No Urinary Catheter: Yes Drips/Lines: heparin Services not available here: Cardiology
--- NOTE | 2025-01-16 19:55 | PC.NURSE ---
End of shift [id number] - Pt appeared lethargic during shift, rousable to name and light shaking. Oriented to time, place, self, and situation. Noted to sleep frequently during shift. Pt up once during shift with x1 assist and walker/gait belt to chair. Denies SOB, chest pain, n/v, dizziness. Tolerating RA and NPO diet per MD. Pt noted to have decreased appetite prior to NPO order. Mepilex dressing on coccyx changed during shift. Family at bed side during shift. Lora catheter inserted per MD, noted to be patent and draining. Heparin drip started per protocol on APR. Pt set to transfer to [facility], RN provided nurse to nurse report to Marquita [phone].
--- NOTE | 2025-01-16 20:21 | PC.NURSE ---
Pt left unit at 2011 via EMS on cart. heparin gtts administered upon transfer. pt awake and alert. family updated.
== END 2025-01-16 20:12 | disposition short-term general hospital (02) | DRG 640 ==
LOC: ED 20:11 → MEDSURG 22:57
PROVIDERS: Family Medicine; Internal Medicine; Admitting Provider Family Medicine; Emergency Provider Emergency Medicine; PCP Surgery; Visit Provider Family Medicine
DX: E83.51 Hypocalcemia (principal); I21.4 Non-ST elevation (NSTEMI) myocardial infarction; N39.0 Urinary tract infection, site not specified; K80.10 Calculus of gallbladder with chronic cholecystitis without obstruction; B95.2 Enterococcus as the cause of diseases classified elsewhere; E83.42 Hypomagnesemia; N31.2 Flaccid neuropathic bladder, not elsewhere classified; S02.2XXA Fracture of nasal bones, initial encounter for closed fracture; W07.XXXA Fall from chair, initial encounter; Y93.E1 Activity, personal bathing and showering; Y92.231 Patient bathroom in hospital as the place of occurrence of the external cause; W18.2XXA Fall in (into) shower or empty bathtub, initial encounter; L89.151 Pressure ulcer of sacral region, stage 1; R19.7 Diarrhea, unspecified; I12.9 Hypertensive chronic kidney disease with stage 1 through stage 4 chronic kidney disease, or unspecified chronic kidney disease; E11.22 Type 2 diabetes mellitus with diabetic chronic kidney disease; N18.30 Chronic kidney disease, stage 3 unspecified; E11.51 Type 2 diabetes mellitus with diabetic peripheral angiopathy without gangrene; Z79.84 Long term (current) use of oral hypoglycemic drugs; G25.0 Essential tremor; D64.9 Anemia, unspecified; R63.4 Abnormal weight loss; E78.5 Hyperlipidemia, unspecified; Z87.440 Personal history of urinary (tract) infections; I25.10 Atherosclerotic heart disease of native coronary artery without angina pectoris; Z95.5 Presence of coronary angioplasty implant and graft; Z96.641 Presence of right artificial hip joint; Z79.82 Long term (current) use of aspirin
CPT/HCPCS: 36415; 51701; 51702; 70450; 70486; 71275; 72125; 73502; 74018; 74177; 80048; 80053; 80061; 80076; 81001; 82306; 82330; 82803; 83605; 83690; 83735; 83880; 83970; 84100; 84443; 84484; 85025; 85027; 85610; 85730; 86140; 87086; 87186; 93005; 93306; 97110; 97116; 97161; 97165; 97530; 97535; 99285; 99291; A9270; J0613; J1644; J1815; J2405; J2470; J2543; J3475; J7030; J7050; Q9957; Q9967

== ENCOUNTER 2025-01-16 20:01 | Outpatient (CLI) | payer MEDICARE, SELFPAY | END 2025-01-16 20:02 | disposition home or self-care (01) | LOC: AMB 01-23 15:14 | PROVIDERS: PCP Surgery; Visit Provider Family Medicine | DX: I21.4 Non-ST elevation (NSTEMI) myocardial infarction (principal) | CPT/HCPCS: A0425; A0434 ==